=== PATIENT | female | born 1955 | race Caucasian/White ===

== ENCOUNTER 2016-07-08 18:11 | Emergency (ER) | payer OTHER ==
[~2016-07-08] VITALS: Ht 161.3 cm; Wt 39.1 kg
[~2016-07-08 18:11] MED LIST: CLIN300C10 PO; MISCCAP80 PO; OXGN; TIOTCAP INH
[2016-07-08 18:28] VITALS: TEMP 37.9; Ht 161.3 cm; Wt 39.1 kg
[2016-07-08] MEDS ORDERED: ALBUT/IPRATROP 3MG/0.5MG NEB 3 ML VIAL INH STA (18:41)
[2016-07-08] MEDS ORDERED: SODIUM CHLORIDE 0.9% 1000ML 1,000 ML IV STA (18:41)
[2016-07-08] MEDS ORDERED: CEFTRIAXONE SOD INJ 1 GM ADDVIAL IV STA (18:41)
[2016-07-08] MEDS ORDERED: LEVOFLOXACIN 500 MG TAB PO STA (18:41)
[2016-07-08] MEDS ORDERED: LEVOFLOXACIN 250 MG TAB ONE (19:05)
[2016-07-08 19:08] VITALS: O2SAT 95
--- NOTE | 2016-07-08 19:09 | DIAGNOSTIC IMAGING REPORT ---
SINGLE VIEW CHEST CLINICAL HISTORY: Cough. FINDINGS: An AP, portable, upright chest radiograph is compared to study dated 04/04/2014 and correlated with chest CT dated 02/20/2015. The examination is degraded by portable technique and patient rotation. There are postoperative changes from right pneumonectomy with compensatory hyperinflation of the left lung and rightward shift of the mediastinum. There is rightward deviation of the trachea. Advanced emphysema and chronic interstitial thickening are again noted. Patchy airspace consolidation is seen at the left lung base. There is no large left pleural effusion and no pneumothorax is identified. The cardiac silhouette is not well assessed. The skeletal structures are osteopenic. The bony thorax is grossly intact. IMPRESSION: 1. Advanced emphysema and postoperative changes from right pneumonectomy are similar to previous. 2. Patchy airspace consolidation is seen at the left lung base and likely represents pneumonia. Clinical correlation will be required and radiographic follow-up to resolution is recommended. Electronically signed by: Teodoro Carrion M.D. 07/08/2016 7:07 PM Dictated Date/Time: 07/08/2016 7:05 PM
[2016-07-08 19:10] LABS: BASO % 0.1 %; BASO ABS # 0.01 K/uL (0-0.2); COMPLETE YES; EOS % 0.1 %; HEMATOCRIT 34.5 % (37-47); IG% 0.2 %; LYMPH ABS # 0.26 K/uL (1.2-3.4); MEAN CELL VOLUME 106.8 fL (80-100); MEAN CORPUSCULAR HEMOGLOBIN 37.8 pg (25-34); MEAN CORPUSCULAR HGB CONC 35.4 g/dl (32-36); MEAN PLATELET VOLUME 9.8 fL (7.4-10.4); MONO % 4.4 %; NEUT % 93.2 %; PLATELET COUNT 127 K/uL (130-400); RED BLOOD COUNT 3.23 M/uL (4.2-5.4); WHITE BLOOD COUNT 12.81 K/uL (4.8-10.8)
[2016-07-08 19:23] LABS: INR 1.2 (0.9-1.1); PARTIAL THROMBOPLASTIN RATIO 1.4; PROTHROMBIN TIME (PATIENT) 13.1 SECONDS (9.0-12.0)
[2016-07-08 19:40] VITALS: BP 97/62; PULSE 109; O2SAT 98
[2016-07-08 19:40] LABS: ALT/SGPT 18 U/L (12-78); AST/SGOT 20 U/L (15-37); BLOOD UREA NITROGEN 11 mg/dl (7-18); BUN/CREATININE RATIO 20.5 (10-20); CARBON DIOXIDE 26 mmol/L (21-32); CHLORIDE 101 mmol/L (98-107); CREATININE 0.52 mg/dl (0.60-1.20); GLUCOSE 98 mg/dl (70-99); POTASSIUM 3.5 mmol/L (3.5-5.1); SODIUM 135 mmol/L (136-145)
[2016-07-08 19:44] LABS: ALB/GLOB RATIO 1.1 (0.9-2); ALKALINE PHOSPHATASE 83 U/L (45-117); CKMB/CK RATIO 2.1 (0-3.0)
[2016-07-08] MEDS ORDERED: LEVO-366 PO (20:01)
--- NOTE | 2016-07-08 20:02 | EMERGENCY ROOM VISIT NOTE ---
History Report prepared by Scribe: Laura Macias Under the Supervision of: Dr. Trenton Julien D.O. First contact with patient: 18:37 Chief Complaint: RESPIRATORY PROBLEMS Stated Complaint: SHORTNESS OF BREATH Nursing Triage Summary: pt arrives via EMS reports started 1 day ago with congested cough and increased sob ,and chest pressure. pt used neb tx at home last one at 1300 and ibuprofen at 1600 reports hx of Lung CA with R lung removed 6.5 yrears ago History of Present Illness The patient is a 61 year old female who presents to the Emergency Room with complaints of persistent respiratory problems that started yesterday. She was brought to the ED via EMS. She admits to a history of lung cancer and had a right pneumectomy 6 and-a-half years ago. She states she normally wears Oxygen at night. She tried using a nebulizer treatment at home around 1300 today and states it provided minimal relief. She also complains of some chest pressure and reports she took Ibuprofen at 1600 for her discomfort, which also provided minimal relief. The patient denies any other complaints at today's visit. Source of History: patient Onset: yesterday Position: chest Timing: other (persistent) Modifying Factors (Relieving): oxygen, other (Nebulizer) Associated Symptoms: + chest pain Review of Systems See HPI for pertinent positives & negatives. A total of 10 systems reviewed and were otherwise negative. Past Medical & Surgical Medical Problems: (1) Hernia (2) Lung cancer Surgical Problems: (1) H/O pneumonectomy Family History No pertinent family history Social History Smoking Status: Former Smoker Alcohol Use: occasionally Drug Use: none Marital Status: Housing Status: lives with family Occupation Status: retired Current/Historical Medications Scheduled Clindamycin Hcl (Clindamycin Hcl), 300 MG PO TID Levofloxacin (Levaquin), 500 MG PO DAILY Oxygen (Oxygen), 2 LITERS NA PRN Probiotic Product (Probiotic), 1 CAP PO TID Tiotropium [place] (Spiriva Handihaler), 1 CAP INH DAILY Allergies Coded Allergies: Aspirin (Verified Allergy, Unknown, ., 04/02/14) Sulfamethoxazole w/Trimethoprim (Verified Allergy, Unknown, UNKNOWN, ) Physical Exam Vital Signs Date Time Temp Pulse Resp B/P Pulse Ox O2 Delivery O2 Flow Rate FiO2 07/08/16 19:40 109 18 97/62 98 Nasal Cannula 2.0 07/08/16 19:08 95 Nasal Cannula 2.0 07/08/16 18:28 110 07/08/16 18:28 37.9 108 20 112/66 94 Nasal Cannula 2.0 Physical Exam CONSTITUTIONAL/VITAL SIGNS: Reviewed / noted above. GENERAL: Non-toxic in appearance. INTEGUMENTARY: Warm, dry, and Donna. HEAD: Normocephalic. EYES: without scleral icterus or trauma. ENT/OROPHARYNX: clear and moist. LYMPHADENOPATHY/NECK: Is supple without lymphadenopathy or meningismus. RESPIRATORY: Lungs sounds are diminished bilaterally. CARDIOVASCULAR: Regular rate and rhythm. GI/ABDOMEN: Soft and nontender. No organomegaly or pulsatile mass. No rebound or guarding. Normal bowel sounds. EXTREMITIES: Warm and well perfused. BACK: No CVA tenderness. NEUROLOGICAL: Intact without focal deficits. PSYCHIATRIC: normal affect. MUSCULOSKELETAL: Normally developed with good muscle tone. Medical Decision & Procedures ER Provider Diagnostic Interpretation: This X-Ray was reviewed and interpreted by myself and the radiologist. SINGLE VIEW CHEST IMPRESSION: 1. Advanced emphysema and postoperative changes from right pneumonectomy are similar to previous. 2. Patchy airspace consolidation is seen at the left lung base and likely represents pneumonia. Clinical correlation will be required and radiographic follow-up to resolution is recommended. Electronically signed by: Teodoro Carrion M.D. 07/08/2016 7:07 PM Laboratory Results 07/08/16 18:55 Red Blood Count 3.23, Mean Corpuscular Volume 106.8, Mean Corpuscular Hemoglobin 37.8, Mean Corpuscular Hemoglobin Concent 35.4, Mean Platelet Volume 9.8, Neutrophils (%) (Auto) 93.2, Lymphocytes (%) (Auto) 2.0, Monocytes (%) ( Auto) 4.4, Eosinophils (%) (Auto) 0.1, Basophils (%) (Auto) 0.1, Neutrophils # ( Auto) 11.95, Lymphocytes # (Auto) 0.26, Monocytes # (Auto) 0.56, Eosinophils # ( Auto) 0.01, Basophils # (Auto) 0.01 07/08/16 18:55 Test 07/08/16 18:55 White Blood Count 12.81 K/uL (4.8-10.8) Red Blood Count 3.23 M/uL (4.2-5.4) Hemoglobin 12.2 g/dL (12.0-16.0) Hematocrit 34.5 % (37-47) Mean Corpuscular Volume 106.8 fL (80-100) Mean Corpuscular Hemoglobin 37.8 pg (25-34) Mean Corpuscular Hemoglobin Concent 35.4 g/dl (32-36) Platelet Count 127 K/uL (130-400) Mean Platelet Volume 9.8 fL (7.4-10.4) Neutrophils (%) (Auto) 93.2 % Lymphocytes (%) (Auto) 2.0 % Monocytes (%) (Auto) 4.4 % Eosinophils (%) (Auto) 0.1 % Basophils (%) (Auto) 0.1 % Neutrophils # (Auto) 11.95 K/uL (1.4-6.5) Lymphocytes # (Auto) 0.26 K/uL (1.2-3.4) Monocytes # (Auto) 0.56 K/uL (0.11-0.59) Eosinophils # (Auto) 0.01 K/uL (0-0.5) Basophils # (Auto) 0.01 K/uL (0-0.2) RDW Standard Deviation 55.2 fL (36.4-46.3) RDW Coefficient of Variation 14.2 % (11.5-14.5) Immature Granulocyte % (Auto) 0.2 % Immature Granulocyte # (Auto) 0.02 K/uL (0.00-0.02) Prothrombin Time 13.1 SECONDS (9.0-12.0) Prothromb Time International Ratio 1.2 (0.9-1.1) Activated Partial Thromboplast Time 35.2 SECONDS (21.0-31.0) Partial Thromboplastin Ratio 1.4 Anion Gap 8.0 mmol/L (3-11) Est Creatinine Clear Calc Drug Dose 69.2 ml/min Estimated GFR () 118.7 Estimated GFR (Non- 102.4 BUN/Creatinine Ratio 20.5 (10-20) Calcium Level 8.0 mg/dl (8.5-10.1) Total Bilirubin 1.2 mg/dl (0.2-1) Aspartate Amino Transf (AST/SGOT) 20 U/L (15-37) Alanine Aminotransferase (ALT/SGPT) 18 U/L (12-78) Alkaline Phosphatase 83 U/L (45-117) Total Creatine Kinase 24 U/L (26-192) Creatine Kinase MB 0.5 ng/ml (0.5-3.6) Creatine Kinase MB Ratio 2.1 (0-3.0) Troponin I < 0.015 ng/ml (0-0.045) Total Protein 6.2 gm/dl (6.4-8.2) Albumin 3.2 gm/dl (3.4-5.0) Globulin 3.0 gm/dl (2.5-4.0) Albumin/Globulin Ratio 1.1 (0.9-2) Laboratory results as stated above per my review. Medications Administered Medications (Trade) Dose Ordered Sig/Kathia Route Start Time Stop Time Status Last Admin Dose Admin Albuterol/ Ipratropium (Duoneb) 3 ml NOW STAT INH 07/08/16 18:41 07/08/16 18:43 DC 07/08/16 19:04 3 ML Ceftriaxone Sodium 1 gm 1 gm NOW STAT IV 07/08/16 18:41 07/08/16 18:43 DC 07/08/16 19:04 1 GM Sodium Chloride (Nss 1000ml) 1,000 ml @ 999 mls/hr Q1H1M STAT IV 07/08/16 18:41 07/08/16 19:41 DC 07/08/16 18:41 999 MLS/HR Levofloxacin (Levaquin Tab) 500 mg STK-MED ONCE .ROUTE 07/08/16 19:05 07/08/16 19:06 DC 07/08/16 19:04 500 MG ECG Indication: SOB/dyspnea Rate (beats per minute): 109 Rhythm: sinus tachycardia Findings: no ectopy, other (T-wave flattening in inferior and lateral leads) Change: no significant change (Compared to EKG from April 05, 2014, changes appear to be new) ED Course 183: Previous medical records were reviewed. The patient was evaluated in room B11. A complete history and physical examination was performed. 184: NSS 1000 ml @ 999 mls/hr IV, Rocephin 1 gm IV, DuoNeb 3 ml INH. 1904: Levaquin 500 mg IV. 2004: I reevaluated the patient. She is feeling well and resting comfortably. I discussed her results and discharge instructions and she verbalized complete understanding and agreement. Medical Decision The differential was considered includes acute myocardial infarction, acute coronary syndrome, myocarditis, pericarditis, pericardial effusions /tamponad, esophageal perforation, pulmonary embolism, pneumonia, pneumothorax, cardiomyopathy, congestive heart, anemia , COPD/asthma exacerbation. This is a 61-year-old female who presents to the ED with a chief complaint of shortness of breath. She has had cold symptoms for the past 24 hours. She developed shortness of breath today. Her temperature is 37.9. Her physical exam reveals diminished breath sounds bilaterally. She does use oxygen at home at 2 L. She is not hypoxic. EKG shows sinus tach at 109. White blood cell count was 12.8. Complete metabolic panel was unremarkable. Troponin is negative. Chest x-ray suggests left lower lobe pneumonia. She was treated with IV Rocephin and by mouth Levaquin. She is felt to be stable for discharge. She'll be discharged on Levaquin. She will use caution as needed at home. She will return for worsening or new concerns. Impression Primary Impression: Pneumonia involving left lung Scribe Attestation The scribe's documentation has been prepared under my direction and personally reviewed by me in its entirety. I confirm that the note above accurately reflects all work, treatment, procedures, and medical decision making performed by me. Departure Information Dispostion Home / Self-Care Prescriptions Levofloxacin (Levaquin) 500 Mg Tab 500 MG PO DAILY for 9 Days, #9 TAB Prov: Trenton Julien D.O. 07/08/16 Referrals Yoel Neil M.D. (PCP) Patient Instructions ED Pneumonia, My [facility] Additional Instructions Levaquin as prescribed for pneumonia. Follow-up with your doctor for further care and evaluation in 1-2 days. Return to the emergency department for worsening or new symptoms or any concerns. You have been examined and treated today on an emergency basis only. This is not a substitute for, or an effort to provide, complete comprehensive medical care. It is impossible to recognize and treat all injuries or illnesses in a single emergency department visit. It is therefore important that you follow up closely with your doctor. Call as soon as possible for an appointment.
== END 2016-07-08 20:24 | disposition home or self-care (01) ==
LOC: EDBD 18:11 → C.EDB 18:12
DX: J18.9 Pneumonia, unspecified organism (principal); R00.0 Tachycardia, unspecified; Z85.118 Personal history of other malignant neoplasm of bronchus and lung; Z90.2 Acquired absence of lung [part of]; Z87.891 Personal history of nicotine dependence

== ENCOUNTER → 2016-07-12 | Outpatient (CLI) | payer OTHER ==
[~2016-07-12] MED LIST changes: +LEVO-366 PO
--- NOTE | 2016-07-12 10:56 | DIAGNOSTIC IMAGING REPORT ---
KUB HISTORY: ABDOMINAL DISCOMFORT, EPIGASTRIC COMPARISON: Abdomen and pelvis CT 07/13/2009. FINDINGS: Multiple nondilated air-filled loops of large and small bowel seen throughout the abdomen. No distended loops of bowel to suggest an obstruction. Prior right-sided pneumonectomy and left basilar interstitial thickening is again noted. No renal calculi. No ureteral calculi. No pneumoperitoneum or pneumatosis. IMPRESSION: No evidence for bowel obstruction. Electronically signed by: Miguel Zhang M.D. 07/12/2016 10:55 AM Dictated Date/Time: 07/12/2016 10:54 AM
== END | disposition home or self-care (01) ==
LOC: C.RADPV 10:23
PROVIDERS: ATTEND Family Medicine
DX: R10.13 Epigastric pain (principal)

== ENCOUNTER → 2016-12-02 | Outpatient (CLI) | payer OTHER ==
[~2016-12-02] MED LIST changes: -LEVO-366 PO
== END | disposition home or self-care (01) ==
LOC: C.LAB1850 13:45
PROVIDERS: ATTEND Internal Medicine Cardiovascular Disease
DX: R07.9 Chest pain, unspecified (principal)

== ENCOUNTER → 2016-12-09 | Outpatient (CLI) | payer OTHER ==
[2016-12-09 13:09] LABS: ALT/SGPT 18 U/L (12-78); BLOOD UREA NITROGEN 6 mg/dl (7-18); BUN/CREATININE RATIO 9.4 (10-20); CALCIUM 9.4 mg/dl (8.5-10.1); CARBON DIOXIDE 26 mmol/L (21-32); CHLORIDE 100 mmol/L (98-107); CHOLESTEROL 213 mg/dl (0-200); CREATININE 0.66 mg/dl (0.60-1.20); GLUCOSE 95 mg/dl (70-99); POTASSIUM 4.3 mmol/L (3.5-5.1); SODIUM 136 mmol/L (136-145)
[2016-12-09 13:12] LABS: ALB/GLOB RATIO 1.1 (0.9-2); ALKALINE PHOSPHATASE 110 U/L (45-117); AST/SGOT 41 U/L (15-37); CHOLESTEROL/HDL RATIO 1.8; HDL CHOLESTEROL 117 mg/dl; LDL CHOLESTEROL CALCULATED 83 mg/dl; TRIGLYCERIDES 64 mg/dl (0-150); VERY LOW DENSITY LIPOPROT CALC 13 mg/dl
== END | disposition home or self-care (01) ==
LOC: C.LABPVFM 09:06
PROVIDERS: ATTEND Family Medicine
DX: Z00.00 Encounter for general adult medical examination without abnormal findings (principal); C34.90 Malignant neoplasm of unspecified part of unspecified bronchus or lung

== ENCOUNTER 2017-05-30 11:01 | Emergency (ER) | payer OTHER ==
[~2017-05-30] VITALS: Ht 160 cm; Wt 37.6 kg
[2017-05-30 11:01] VITALS: O2SAT 100
[2017-05-30] MEDS ORDERED: SODIUM CHLORIDE 0.9% 1000ML 1,000 ML IV STA (11:32)
[2017-05-30 11:34] VITALS: Ht 160 cm; Wt 37.6 kg
[2017-05-30 11:39] LABS: BASO % 0.2 %; BASO ABS # 0.02 K/uL (0-0.2); HEMATOCRIT 39.8 % (37-47); IG# 0.04 K/uL (0.00-0.02); LYMPH % 1.9 %; LYMPH ABS # 0.25 K/uL (1.2-3.4); MEAN CELL VOLUME 107.3 fL (80-100); MEAN CORPUSCULAR HEMOGLOBIN 37.7 pg (25-34); MEAN CORPUSCULAR HGB CONC 35.2 g/dl (32-36); MEAN PLATELET VOLUME 9.5 fL (7.4-10.4); MONO % 6.6 %; MONO ABS # 0.85 K/uL (0.11-0.59); NEUT ABS # 11.76 K/uL (1.4-6.5); PLATELET COUNT 144 K/uL (130-400); RED CELL DISTRIBUTION WIDTH CV 14.2 % (11.5-14.5); RED CELL DISTRIBUTION WIDTH SD 55.7 fL (36.4-46.3); WHITE BLOOD COUNT 12.92 K/uL (4.8-10.8)
[2017-05-30] MEDS ORDERED: SPRIN/30 INH (11:48)
[2017-05-30] MEDS ORDERED: OXGN (11:48)
[2017-05-30 11:49] LABS: ALBUMIN 3.8 gm/dl (3.4-5.0); ALT/SGPT 34 U/L (12-78); AST/SGOT 140 U/L (15-37); BLOOD UREA NITROGEN 11 mg/dl (7-18); CALCIUM 8.5 mg/dl (8.5-10.1); CARBON DIOXIDE 22 mmol/L (21-32); CREATININE 0.58 mg/dl (0.60-1.20); GLUCOSE 199 mg/dl (70-99); INR 1.1 (0.9-1.1); LIPASE 58 U/L (73-393); POTASSIUM 3.9 mmol/L (3.5-5.1); PTT PATIENT 28.9 SECONDS (21.0-31.0); SODIUM 134 mmol/L (136-145); TOTAL PROTEIN 7.3 gm/dl (6.4-8.2)
[2017-05-30 11:58] LABS: ALKALINE PHOSPHATASE 117 U/L (45-117)
--- NOTE | 2017-05-30 11:59 | DIAGNOSTIC IMAGING REPORT ---
CT OF THE HEAD WITHOUT CONTRAST CLINICAL HISTORY: Weakness. COMPARISON STUDY: MRI of the brain January 02, 2009. CT DOSE: 614.27 mGy.cm TECHNIQUE: Helical axial images of the head were obtained without IV contrast. Automated exposure control was utilized for the study. A dose lowering technique was utilized adhering to the principles of ALARA. FINDINGS: No acute intracranial hemorrhage, midline shift or mass effect is present. Ventricular system is stable. Basilar cisterns are patent. There are no extra axial collections. Roque-white differentiation is maintained. There are no findings to suggest acute dural sinus thrombosis or acute territorial infarct. There are no significant calvarial abnormalities. There is mild mucosal thickening of the ethmoid sinuses. Mastoid air cells are clear. IMPRESSION: No acute intracranial findings. Electronically signed by: Rao Carrizales M.D. 05/30/2017 11:57 AM Dictated Date/Time: 05/30/2017 11:55 AM
--- NOTE | 2017-05-30 12:38 | DIAGNOSTIC IMAGING REPORT ---
CHEST ONE VIEW PORTABLE CLINICAL HISTORY: Weakness. COMPARISON STUDY: Chest CT February 20, 2015 and chest radiograph July 08, 2016. FINDINGS: The appearance of the right pneumonectomy cavity is unchanged. There is no pneumothorax or pleural effusion. Left lung is clear. There is no evidence for pulmonary edema. Old right-sided rib deformities are noted. IMPRESSION: 1. No acute cardiopulmonary findings. 2. Status post right pneumonectomy. Electronically signed by: Rao Carrizales M.D. 05/30/2017 12:36 PM Dictated Date/Time: 05/30/2017 12:34 PM
[2017-05-30] MEDS ORDERED: ACETAMINOPHEN 325 MG TAB PO STA (13:26)
[2017-05-30] MEDS ORDERED: FSTTS (14:19)
[2017-05-30] MEDS ORDERED: [UNRECOGNIZED DRUG - CODE] SC (14:19)
--- NOTE | 2017-05-30 14:20 | EMERGENCY ROOM VISIT NOTE ---
History Report prepared by Bala: Al Mccray Under the Supervision of: Dr. Celso Barnett M.D. First contact with patient: 11:10 Stated Complaint: DIABETIC History of Present Illness The patient is a 61 year old white female with a past medical history of COPD, pneumonectomy s/p lung cancer who presents to the ED by EMS with a cc of constant generalized weakness beginning shortly prior to arrival. Patient was weak as soon as she woke up this morning. EMS found the patient to be hypoglycemic this morning (patient unaware of the exact value). No recent falls. Positive headache. Not eating and drinking a lot (but this is normal for her). Urinating and defecating normally. No recent travel. Family was sick two weeks ago. No unexplained weight loss. Nursing staff notes that the patient's blood sugar was read as "low" with no specific value. They state that the patient was given Glucagon and D10 en route, and her repeat glucose was over 200. Source of History: patient Onset: Shortly prior to arrival Position: other (generalized) Quality: other (weakness) Timing: constant Associated Symptoms: + headache Review of Systems See HPI for pertinent positives and negatives. A total of ten systems were reviewed and were otherwise negative. Past Medical & Surgical Medical Problems: (1) Hernia (2) Lung cancer Surgical Problems: (1) H/O pneumonectomy Family History No pertinent family history Social History Smoking Status: Former Smoker Alcohol Use: occasionally Drug Use: none Marital Status: Housing Status: lives with family Occupation Status: retired Current/Historical Medications Scheduled Home O2 Therapy (Oxygen), 2 LITERS NA HS Tiotropium [place] (Spiriva Handihaler), 1 CAP INH DAILY Allergies Coded Allergies: Aspirin (Verified Allergy, Unknown, ., 05/30/17) Sulfamethoxazole w/Trimethoprim (Verified Allergy, Unknown, UNKNOWN, ) Physical Exam Vital Signs Date Time Temp Pulse Resp B/P (MAP) Pulse Ox O2 Delivery O2 Flow Rate FiO2 05/30/17 13:35 90 18 112/63 99 Room Air 05/30/17 13:33 89 05/30/17 11:39 87 15 123/77 99 Room Air 05/30/17 11:07 90 05/30/17 11:01 92 15 131/78 100 Room Air 05/30/17 11:01 100 Room Air Physical Exam GENERAL: Awake, alert, well-appearing, NAD. Very thin. HENT: Normocephalic, atraumatic. EYES: Normal conjunctiva. Sclera non-icteric. NECK: Supple. No nuchal rigidity. FROM. RESPIRATORY: Decreased breath sounds on the right, trace breath sounds on the left. CARDIAC: RRR, no MRG ABDOMEN: Soft, NTND, BS+ MSK: No chest wall TTP, no LE edema NEURO: GCS 15, CN 2-12 intact, moves all 4s on command SKIN: No rash or jaundice noted. Medical Decision & Procedures ER Provider Diagnostic Interpretation: Radiology results as stated below per my review and radiologist interpretation: CT OF THE HEAD WITHOUT CONTRAST FINDINGS: No acute intracranial hemorrhage, midline shift or mass effect is present. Ventricular system is stable. Basilar cisterns are patent. There are no extra axial collections. Roque-white differentiation is maintained. There are no findings to suggest acute dural sinus thrombosis or acute territorial infarct. There are no significant calvarial abnormalities. There is mild mucosal thickening of the ethmoid sinuses. Mastoid air cells are clear. IMPRESSION: No acute intracranial findings. Electronically signed by: Rao Carrizales M.D. 05/30/2017 11:57 AM CHEST ONE VIEW PORTABLE FINDINGS: The appearance of the right pneumonectomy cavity is unchanged. There is no pneumothorax or pleural effusion. Left lung is clear. There is no evidence for pulmonary edema. Old right-sided rib deformities are noted. IMPRESSION: 1. No acute cardiopulmonary findings. 2. Status post right pneumonectomy. Electronically signed by: Rao Carrizales M.D. 05/30/2017 12:36 PM Laboratory Results 05/30/17 11:15 Red Blood Count 3.71, Mean Corpuscular Volume 107.3, Mean Corpuscular Hemoglobin 37.7, Mean Corpuscular Hemoglobin Concent 35.2, Mean Platelet Volume 9.5, Neutrophils (%) (Auto) 91.0, Lymphocytes (%) (Auto) 1.9, Monocytes (%) ( Auto) 6.6, Eosinophils (%) (Auto) 0.0, Basophils (%) (Auto) 0.2, Neutrophils # ( Auto) 11.76, Lymphocytes # (Auto) 0.25, Monocytes # (Auto) 0.85, Eosinophils # ( Auto) 0.00, Basophils # (Auto) 0.02 05/30/17 11:15 Test 05/30/17 11:15 White Blood Count 12.92 K/uL (4.8-10.8) Red Blood Count 3.71 M/uL (4.2-5.4) Hemoglobin 14.0 g/dL (12.0-16.0) Hematocrit 39.8 % (37-47) Mean Corpuscular Volume 107.3 fL (80-100) Mean Corpuscular Hemoglobin 37.7 pg (25-34) Mean Corpuscular Hemoglobin Concent 35.2 g/dl (32-36) Platelet Count 144 K/uL (130-400) Mean Platelet Volume 9.5 fL (7.4-10.4) Neutrophils (%) (Auto) 91.0 % Lymphocytes (%) (Auto) 1.9 % Monocytes (%) (Auto) 6.6 % Eosinophils (%) (Auto) 0.0 % Basophils (%) (Auto) 0.2 % Neutrophils # (Auto) 11.76 K/uL (1.4-6.5) Lymphocytes # (Auto) 0.25 K/uL (1.2-3.4) Monocytes # (Auto) 0.85 K/uL (0.11-0.59) Eosinophils # (Auto) 0.00 K/uL (0-0.5) Basophils # (Auto) 0.02 K/uL (0-0.2) RDW Standard Deviation 55.7 fL (36.4-46.3) RDW Coefficient of Variation 14.2 % (11.5-14.5) Immature Granulocyte % (Auto) 0.3 % Immature Granulocyte # (Auto) 0.04 K/uL (0.00-0.02) Prothrombin Time 11.6 SECONDS (9.0-12.0) Prothromb Time International Ratio 1.1 (0.9-1.1) Activated Partial Thromboplast Time 28.9 SECONDS (21.0-31.0) Partial Thromboplastin Ratio 1.1 Anion Gap 14.0 mmol/L (3-11) Est Creatinine Clear Calc Drug Dose 59.7 ml/min Estimated GFR () 114.5 Estimated GFR (Non- 98.8 BUN/Creatinine Ratio 18.5 (10-20) Calcium Level 8.5 mg/dl (8.5-10.1) Magnesium Level 1.3 mg/dl (1.8-2.4) Total Bilirubin 1.0 mg/dl (0.2-1) Direct Bilirubin 0.4 mg/dl (0-0.2) Aspartate Amino Transf (AST/SGOT) 140 U/L (15-37) Alanine Aminotransferase (ALT/SGPT) 34 U/L (12-78) Alkaline Phosphatase 117 U/L (45-117) Troponin I < 0.015 ng/ml (0-0.045) Pro-B-Type Natriuretic Peptide 199 pg/ml (0-900) Total Protein 7.3 gm/dl (6.4-8.2) Albumin 3.8 gm/dl (3.4-5.0) Lipase 58 U/L (73-393) Thyroid Stimulating Hormone (TSH) 1.250 uIu/ml (0.300-4.500) Laboratory results reviewed by me Medications Administered Medications (Trade) Dose Ordered Sig/Kathia Route Start Time Stop Time Status Last Admin Dose Admin Sodium Chloride 1,000 ml @ 999 mls/hr Q1H1M STAT IV 05/30/17 11:32 05/30/17 12:32 DC 05/30/17 11:39 999 MLS/HR Acetaminophen (Tylenol Tab) 650 mg NOW STAT PO 05/30/17 13:26 05/30/17 13:27 DC 05/30/17 13:44 650 MG ECG Per My Interpretation Indication: weakness Rate (beats per minute): 87 Rhythm: normal sinus Findings: other (Normal intervals. Normal axis. ) ED Course 1125: The patient was evaluated in room C1B. A complete history and physical exam was performed. 1352: I reevaluated the patient. Discussed results and discharge instructions: she verbalized understanding and agreement. The patient is ready for discharge. Medical Decision The patient is a 61 year old white female with a past medical history of COPD, pneumonectomy s/p lung cancer who presents to the ED by EMS with a cc of constant generalized weakness beginning shortly prior to arrival. Differential diagnosis: Etiologies such as metabolic, infection, hypo/hyperglycemia, electrolyte abnormalities, cardiac sources, intracerebral event, toxicologic, neurologic, as well as others were entertained. Prior records were reviewed. Patient was seen and evaluated the bedside. Patient does have a prior history of COPD is on chronic oxygen 2 L nasal cannula at home primarily in the evening time. Patient is status post pneumonectomy from her prior lung cancer. Patient does get seen on a yearly basis and had a recent negative scan. Patient presents as she was having some confused speech and apparently the EMS crew noted that she had low blood sugar. Patient denies taking any medications. Patient denies any alcohol or tobacco use. Patient denies any drug use. Patient only uses ipratropium inhalers. Patient denies any unexplained weight loss. Patient denies any history of abdominal metastases or cancers. Patient medically does have a poor appetite. Patient is at work completed along with CT of the brain EKG. Patient's EKG unremarkable. CT brain negative acute. Patient's white blood cell count 12, 000. Patient does show some macrocytosis but is without anemia. Patient does have mild elevation in the bili. Upon review of the blood work patient has had elevations in T bili in the past. Patient does have mild elevation in AST. Patient again denies any prior history of abdominal cancer or prior history of metastases. Patient has had mild elevations in AST once before for prior blood work that I reviewed. 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 Patient is to be seen on June 05 with a primary care physician. Patient was also given a glucometer. Patient was told that she does need to increase her alimentation as the patient has a BMI of 14 and looks very thin. Patient was told to increase her caloric intake. Patient was given strict follow-up, discharge, and return precautions. All questions were answered. Patient was deemed suitable for outpatient follow-up at this time. Patient agreed with the plan of care and was safely discharged home. Medication Reconcilliation Current Medication List: was personally reviewed by me Blood Pressure Screening Patient's blood pressure: Normal blood pressure Blood pressure disposition: Did not require urgent referral Impression Primary Impression: Hypoglycemia Additional Impressions: Altered mental status Hypomagnesemia Scribe Attestation The scribe's documentation has been prepared under my direction and personally reviewed by me in its entirety. I confirm that the note above accurately reflects all work, treatment, procedures, and medical decision making performed by me. Departure Information Dispostion Home / Self-Care Prescriptions Glucostix Blood Test Strips (Onetouch Ultra Control) 1 [facility] UNITS for glucose checks, #30 Prov: Celso Barnett M.D. 05/30/17 Blood Glucose Monitoring Suppl (D-Care Glucometer Kit/Glu W/Device) 1 Kit Kit KIT NM, #1 Prov: Celso Barnett M.D. 05/30/17 Referrals Yoel Neil M.D. (PCP) Patient Instructions Glucose Blood, Glucose Check Steps, My [facility] Additional Instructions Please return to the emergency department if you have worsening or recurrent symptoms not amenable to at-home treatment. Please call for a follow-up appointment with her primary care physician. Please take your medications as prescribed. If you have other concerns and/or complaints please feel free to also call your primary care physician's office or return the ED for further evaluation, management, and treatment. Take your medications as prescribed. You have been examined and treated today on an emergency basis only. This is not a substitute for, or an effort to provide, complete comprehensive medical care. It is impossible to recognize and treat all injuries or illnesses in a single emergency department visit. It is therefore important that you follow up closely with [facility], your PCP, and/or your specialist(s). Call as soon as possible for an appointment. Thank you for your time and consideration. I look forward to speaking with you again soon. Please don't hesitate to call us if you have any questions. Problem Qualifiers Additional Impressions: Altered mental status Altered mental status type: unspecified Qualified Codes: R41.82 - Altered mental status, unspecified
[2017-05-30 14:41] VITALS: BP 113/68; PULSE 99; O2SAT 97
== END 2017-05-30 14:41 | disposition home or self-care (01) ==
LOC: EDBD 11:01 → C.EDC 11:02
DX: E16.2 Hypoglycemia, unspecified (principal); R41.82 Altered mental status, unspecified; J44.9 Chronic obstructive pulmonary disease, unspecified; Z99.81 Dependence on supplemental oxygen; Z90.2 Acquired absence of lung [part of]; Z85.118 Personal history of other malignant neoplasm of bronchus and lung; Z87.891 Personal history of nicotine dependence; Z88.2 Allergy status to sulfonamides; Z88.6 Allergy status to analgesic agent

== ENCOUNTER → 2017-06-17 | Outpatient (CLI) | payer OTHER ==
[~2017-06-17] MED LIST changes: -CLIN300C10 PO; +FSTTS; -MISCCAP80 PO; +OPTIRAY 320 IV PRN; +SPRIN/30 INH; -TIOTCAP INH; +[UNRECOGNIZED DRUG - CODE] SC
--- NOTE | 2017-06-17 13:31 | DIAGNOSTIC IMAGING REPORT ---
ABD/PELVIS IV CONTRAST ONLY CLINICAL HISTORY: 61 years-old Female presenting with C34.90 Squamous cell carcinoma of lungR64 [id number] Early s. TECHNIQUE: Multidetector CT of the abdomen and pelvis was performed after the administration of intravenous contrast. IV contrast: 93 mL of Optiray 320. A dose lowering technique was used consistent with the principles of ALARA (as low as reasonably achievable). COMPARISON: None. CT DOSE (mGy.cm): The estimated cumulative dose is 240.86 mGy.cm. FINDINGS: Hospice Entrance Attendant topogram: Opacification of the right hemithorax. Lung bases: Postsurgical changes of right pneumonectomy suspected. Extensive pleural thickening, pleural calcification, loculated pleural fluid at the right lung base. Emphysematous changes of the left lung, which is hyperinflated. Normal heart size. No pericardial or pleural effusion. Liver: Hypertrophy of the left hepatic lobe with a macronodular contour suggesting fibrotic changes/cirrhosis. No focal lesion. Patent hepatic vasculature. Biliary: No intrahepatic or extrahepatic biliary ductal dilatation. Normal gallbladder. Pancreas: Normal. Spleen: Parenchymal calcification may relate to the presence of an intrasplenic aneurysm. Parenchyma otherwise normal. Adrenal glands: Normal. Kidneys and ureters: Nonobstructing punctate left renal calculus. Normal renal parenchyma allowing for the phase of contrast. No hydronephrosis. Distal ureters poorly visualized. Bladder: Circumferential bladder wall thickening. Pelvic organs: Grossly normal uterus and ovaries. Bowel: Mucosal hyperenhancement of the rectum suggested. Mucosal hyperenhancement and mild wall thickening evident in the distal transverse colon and splenic flexure. The presumed appendix demonstrates mucosal hyperenhancement though is not dilated. Mild submucosal edema in the stomach. No bowel obstruction. Fecal material noted in the distal small bowel suggesting delayed transit. Peritoneal cavity: No free fluid or intraperitoneal gas. Lymph nodes: No enlarged lymph nodes in the abdomen or pelvis. Vasculature: Atherosclerosis of the normal caliber abdominal aorta. IVC patent. Abdominal wall: Normal. Musculoskeletal: Normal. IMPRESSION: 1. Postsurgical changes of the right hemithorax. 2. No convincing evidence of intra-abdominal metastatic disease. No lymphadenopathy. 3. Mucosal hyperenhancement mild wall thickening of the transverse colon and rectum. This could suggest colitis, which may be infectious. 4. Circumferential bladder wall thickening suggest cystitis. This may be infectious or post radiation depending on the patient's clinical history. Correlate with urinalysis. 5. Altered morphology of the liver could suggest cirrhosis. Electronically signed by: Yoel Jonas M.D. 06/17/2017 1:30 PM Dictated Date/Time: 06/17/2017 1:18 PM
== END | disposition home or self-care (01) ==
LOC: C.CTS 12:13
PROVIDERS: ATTEND Family Medicine
DX: R64 Cachexia (principal); R68.81 Early satiety; C34.90 Malignant neoplasm of unspecified part of unspecified bronchus or lung

== ENCOUNTER → 2017-06-24 | Outpatient (CLI) | payer OTHER ==
--- NOTE | 2017-06-24 15:13 | DIAGNOSTIC IMAGING REPORT ---
ABD/PELVIS IV AND ORAL CONT CLINICAL HISTORY: 61 years-old Female presenting with R63.4 Abnormal weight lossR93.[address] scan, gastrointestinal, history of squamous cell carcinoma the lung. TECHNIQUE: Multidetector CT of the abdomen and pelvis was performed after the administration of oral and intravenous contrast. IV contrast: 64 mL of Optiray 320. A dose lowering technique was used consistent with the principles of ALARA (as low as reasonably achievable). COMPARISON: 06/17/2017. CT DOSE (mGy.cm): The estimated cumulative dose is 515.66 mGy.cm. FINDINGS: Bar Back topogram: Opacification of the right hemithorax. Lung bases: Postsurgical changes of right pneumonectomy. Chronic right pleural thickening, pleural calcification, and loculated complex effusion. Hyperinflation of the left lung which demonstrates emphysematous change and focal irregular peripheral bandlike opacity in the lingula likely scarring (series 5 image 12).. Normal heart size. Coronary artery calcification. No pericardial or left pleural effusion. Liver: Nodular contour of the liver. No focal lesion. Patent hepatic vasculature. Biliary: No intrahepatic or extrahepatic biliary ductal dilatation. Normal gallbladder. Pancreas: Mild prominence of the pancreatic duct. Pancreatic parenchyma within normal limits. Spleen: Basilar calcification noted in the spleen. Parenchyma normal. Adrenal glands: Adrenal glands poorly visualized. Kidneys and ureters: Normal. No hydronephrosis. Bladder: Mild circumferential bladder wall thickening. Pelvic organs: Uterus and ovaries normal. Bowel: Resolution of previously noted mucosal hyperenhancement of the rectum and sigmoid colon. The appendix is normal. No bowel obstruction. Peritoneal cavity: No free fluid or intraperitoneal gas. Lymph nodes: No enlarged lymph nodes in the abdomen or pelvis. Vasculature: Atherosclerosis of the normal caliber abdominal aorta. IVC patent. The aorta at the aortic hiatus measures 3 cm in diameter, mildly ectatic. Abdominal wall: Patient is cachectic. Musculoskeletal: Osteopenia. Deformities of several right ribs from prior surgery. IMPRESSION: 1. Interval resolution of inflammatory changes of the colon. 2. No evidence of intra-abdominal metastatic disease or lymphadenopathy. 3. Postsurgical changes of the right hemithorax. 4. Mild persistent circumferential bladder wall thickening. Correlate with urinalysis to exclude cystitis. Electronically signed by: Yoel Jonas M.D. 06/24/2017 3:12 PM Dictated Date/Time: 06/24/2017 3:04 PM
== END | disposition home or self-care (01) ==
LOC: C.CTS 12:49
PROVIDERS: ATTEND Physician Assistant
DX: R63.4 Abnormal weight loss (principal); R93.3 Abnormal findings on diagnostic imaging of other parts of digestive tract

== ENCOUNTER → 2017-07-16 | Outpatient (CLI) | payer OTHER ==
[~2017-07-16] MED LIST changes: -OPTIRAY 320 IV PRN
--- NOTE | 2017-07-16 13:36 | DIAGNOSTIC IMAGING REPORT ---
Nuclear gastric emptying study: CLINICAL HISTORY: Epigastric pain. Dysphagia. COMPARISON STUDY: CT of the abdomen and pelvis June 24, 2017. TECHNIQUE: Following the oral administration of 1.08 mCi of technetium 99m sulfur colloid in egg sandwich and 8 ounces of water, static abdominal images were obtained anteriorly and posteriorly at 0 minutes, 1 hour, 2 hour, and 4 hour time intervals. Gastric emptying was calculated utilizing the geometric mean method. FINDINGS: There is approximately 36% gastric activity remaining at the 1 hour time interval (normal is less than 90%), 24% at the 2 hour time interval (normal is less than 60%), and 2% remaining at the 4 hour time interval (normal is less than 10%). IMPRESSION: No evidence of delayed gastric emptying. Electronically signed by: Rao Carrizales M.D. 07/16/2017 1:35 PM Dictated Date/Time: 07/16/2017 1:34 PM
== END | disposition home or self-care (01) ==
LOC: C.NUCL 08:53
PROVIDERS: ATTEND Physician Assistant
DX: R13.10 Dysphagia, unspecified (principal); R10.13 Epigastric pain; R93.3 Abnormal findings on diagnostic imaging of other parts of digestive tract

== ENCOUNTER → 2017-10-29 | Day surgery (SDC) | payer OTHER ==
[2017-10-28 10:18] VITALS: Ht 161.3 cm; Wt 33.6 kg
[~2017-10-29] VITALS: Ht 161.3 cm; Wt 33.6 kg
[~2017-10-29] MED LIST changes: -FSTTS; +LIDOCAINE HCL 2% 2 ML VIAL (20MG/ML) ONE; +MIDAZOLAM HCL 1 MG/ML 2ML VIAL ONE; +ONDANSETRON INJ 2 MG/ML 2 ML VIAL ONE; +PHENYLEPHRINE 100MCG/ML 5ML SYR ONE; +PROPOFOL IV EMULSION 10 MG/ML 20 ML VIAL ONE; +SODIUM CHLORIDE 0.9% 500ML 500 ML IV ONE; -[UNRECOGNIZED DRUG - CODE] SC
--- NOTE | 2017-10-29 11:01 | Endo History and Physical ---
History & Physical Date of Service: Oct 29, 2017. Chief Complaint: blood in stool Referring Physician: Dr. Temitope Shaikh History of Present Illness 62 yo CF who presents for colonoscopy secondary to positive cologuard test. Past Medical History Diabetes, Eating Disorders, Osteoporosis, Arthritis, Cancer, COPD Past Surgical History Hx Cardiac Surgery: No Hx Internal Defibrillator: No Hx Pacemaker: No Hx Abdominal Surgery: Yes (HERNIA REPAIR X 2, ) Hx Post-Op Nausea and Vomiting: No Hx Cancer Surgery: Yes (RIGHT LUNG REMOVED) Hx Thoracic Surgery: Yes (BRONCHOSCOPY) Hx Orthopedic: No Hx Urinary Tract Surgery: No Family History None Social History Smoking Status: Current Every Day Smoker Hx Substance Use: No Hx Alcohol Use: Yes (OCCASIONALLY) Allergies Coded Allergies: Sulfamethoxazole w/Trimethoprim (Verified Allergy, Severe, TONGUE SWELLING , 10/28/17) Aspirin (Verified Allergy, Unknown, SEVERE STOMACH CRAMPING, 10/28/17) Current Medications Reported Home Medications Medications Dose Route/Sig Max Daily Dose Days Date Category Dose Instructions Spiriva Handihaler (Tiotropium [place]) 30 Puff/540 Mcg Aerp 1 Cap INH QAM 05/30/17 Reported Oxygen Gas 2 Liters NA HS 05/30/17 Reported WILL USE DURING PRN SOB Vital Signs Weight (Kilograms): 33.64 Height (Feet): 5 Height (Inches): 3.5 Date Time Temp Pulse Resp B/P (MAP) Pulse Ox O2 Delivery O2 Flow Rate FiO2 10/29/17 10:36 36.4 97 18 110/78 (89) 99 Room Air Physical Exam General Appearance: WD/WN, no apparent distress Respiratory/Chest: Auscultation: breath sounds normal Cardiovascular: Heart Auscultation: RRR Abdomen: Bowel Sounds: normal Inspection & Palpation: soft, non-distended, no tenderness, guarding & rebound Assessment and Plan Assessment: 62 yo CF who presents for colonoscopy secondary to positive cologuard test. Plan: Proceed with colonoscopy.
--- NOTE | 2017-10-29 12:00 | Discharge Instructions ---
Endoscopy Patient Instructions Date / Procedure(s) Performed Oct 29, 2017. Colonoscopy Allergy Information Coded Allergies: Sulfamethoxazole w/Trimethoprim (Verified Allergy, Severe, TONGUE SWELLING , 10/28/17) Aspirin (Verified Allergy, Unknown, SEVERE STOMACH CRAMPING, 10/28/17) Discharge Date / Findings Oct 29, 2017. Colon polyp Diverticulosis Internal hemorrhoids Medication Instructions OK to resume all medications today as prescribed Reported Home Medications Medications Dose Route/Sig Max Daily Dose Days Date Category Dose Instructions Spiriva Handihaler (Tiotropium [place]) 30 Puff/540 Mcg Aerp 1 Cap INH QAM 05/30/17 Reported Oxygen Gas 2 Liters NA HS 05/30/17 Reported WILL USE DURING PRN SOB Provider Instructions Activity Restrictions - No exercising or heavy lifting for 24 hours. - Do not drink alcohol the day of the procedure. - Do not drive a car or operate machinery until the day after the procedure. - Do not make any important decisions or sign important papers in 24 hours after the procedure. Following Day: - Return to full activity which may include returning to work/school. Diet Start your diet with liquids and light foods (jello, soup, juice, toast). Then eat your usual diet if not nauseated. Treatment For Common After Affects For mild abdominal pain, bloating, or excessive gas: - Rest - Eat lightly - Lie on right side Follow-Up Information Follow-up with Dr. Temitope Shaikh as scheduled Anesthesia Information What You Should Know You have had a procedure that required some medicine to reduce anxiety and discomfort. This treatment is called moderate sedation. After receiving the treatment, you may be sleepy, but you will be able to breathe on your own. The effects of the treatment may last for several hours. Follow these instructions along with Activity/Diet recommendations noted above: * Do NOT do anything where dizziness or clumsiness would be dangerous. * Rest quietly at home today, then you can be up and about tomorrow. * Have a responsible person stay with you the rest of today. * You may have had an I.V. today. If so, you may take the dressing off later today. Recommendations Call your doctor if: * Trouble breathing * Continuous vomiting for more than 24 hours * Temperature above 101 degrees * Severe abdominal pain or bloating * Pain not relieved by pain medicine ordered * There is increased drainage or redness from any incision * A large amount of rectal bleeding greater than 2-3 tablespoons. (If you had a polyp/s removed or have hemorrhoids, a small amount of blood - from the rectum is to be expected.) * You have any unanswered questions or concerns. IN THE EVENT OF A SERIOUS EMERGENCY, GO TO THE NEAREST EMERGENCY ROOM Your discharge instructions were prepared by provider Norris Hogan. Patient Instructions Signature Page Amy Posadas Patient (or Guardian) Signature/Date: I have read and understand the instructions given to me by my caregivers. Caregiver/RN/Doctor Signature/Date: The above-named patient and/or guardian has received patient instructions on this date. + Original Patient Signature Page (only) stays with chart. Please make copy for patient.
--- NOTE | 2017-10-29 12:25 | GI REPORT ---
Patient Name: Amy Posadas Procedure Date: 10/29/2017 11:22 AM Date of : 1955 Admit Type: Outpatient Age: 62 Gender: Female Attending MD: Norris Hogan DO Procedure: Colonoscopy Providers: Norris Hogan DO Referring MD: Victor Hugo De La Rosa M.d. Indications: Positive Cologuard test Medicines: Monitored Anesthesia Care Complications: No immediate complications. Estimated Blood Loss: Estimated blood loss: none. Procedure: Pre-Anesthesia Assessment: - Prior to the procedure, a History and Physical was performed, and patient medications and allergies were reviewed. The patient's tolerance of previous anesthesia was also reviewed. The risks and benefits of the procedure and the sedation options and risks were discussed with the patient. All questions were answered, and informed consent was obtained. Prior Anticoagulants: The patient has taken no previous anticoagulant or antiplatelet agents. ASA Grade Assessment: III - A patient with severe systemic disease. After reviewing the risks and benefits, the patient was deemed in satisfactory condition to undergo the procedure. After I obtained informed consent, the scope was passed under direct vision. Throughout the procedure, the patient's blood pressure, pulse, and oxygen saturations were monitored continuously. The scope was introduced through the anus and advanced to the terminal ileum. The colonoscopy was technically difficult and complex due to a tortuous colon and the patient's body habitus. The patient tolerated the procedure well. The quality of the bowel preparation was good. The terminal ileum, ileocecal valve, appendiceal orifice, and rectum were photographed. Findings: The perianal and digital rectal examinations were normal. A 6 mm polyp was found in the transverse colon. The polyp was sessile. The polyp was removed with a hot snare. Resection and retrieval were complete. Multiple small-mouthed diverticula were found in the sigmoid colon. Non-bleeding internal hemorrhoids were found during retroflexion. The hemorrhoids were small. Impression: - One 6 mm polyp in the transverse colon, removed with a hot snare. Resected and retrieved. - Diverticulosis in the sigmoid colon. - Non-bleeding internal hemorrhoids. Recommendation: - Resume previous diet. - Continue present medications. - Repeat colonoscopy for surveillance based on pathology results. - Return to primary care physician as previously scheduled. Norris Hogan DO 10/29/2017 12:24:54 PM This report has been signed electronically. Note Initiated On: 10/29/2017 11:22 AM Number of Addenda: 0 I attest to the content of the Intraoperative Record and orders documented therein, exceptions below {[id number]}
[2017-10-29 12:28] VITALS: BP 131/81; PULSE 86; O2SAT 97
--- NOTE | 2017-10-29 12:38 | Anesthesiology Progress Note ---
Anesthesia Post Op Note Date & Time Oct 29, 2017 at 12:38 Vital Signs Pain Intensity: 0 Vital Signs Past 12 Hours Date Time Temp Pulse Resp B/P (MAP) Pulse Ox O2 Delivery O2 Flow Rate FiO2 10/29/17 12:28 86 20 131/81 (98) 97 Room Air 10/29/17 12:13 84 20 123/76 (92) 96 Room Air 10/29/17 12:00 84 20 110/65 (80) 99 Room Air 10/29/17 10:36 36.4 97 18 110/78 (89) 99 Room Air Notes Mental Status: alert / awake / arousable, participated in evaluation Pt Amnestic to Procedure: Yes Nausea / Vomiting: adequately controlled Pain: adequately controlled Airway Patency, RR, SpO2: stable & adequate BP & HR: stable & adequate Hydration State: stable & adequate Anesthetic Complications: no major complications apparent
== END | disposition home or self-care (01) ==
LOC: C.GI 09:35
PROVIDERS: ATTEND Internal Medicine
DX: K92.1 Melena (principal); R19.5 Other fecal abnormalities; D12.3 Benign neoplasm of transverse colon; K57.30 Diverticulosis of large intestine without perforation or abscess without bleeding; K64.8 Other hemorrhoids; Z88.2 Allergy status to sulfonamides; Z79.82 Long term (current) use of aspirin; E11.9 Type 2 diabetes mellitus without complications; J44.9 Chronic obstructive pulmonary disease, unspecified; F17.200 Nicotine dependence, unspecified, uncomplicated

== ENCOUNTER 2019-02-22 19:10 | Inpatient (IN) ==
--- NOTE | 2019-02-22 20:10 | XRay Report ---
XR chest 2V PA/lateral CLINICAL HISTORY: Sternal pain. Choking. Thymic maneuver. COMPARISON STUDY: 05/30/2017 FINDINGS: Postpneumonectomy changes are present on the right. There is evidence for emphysema. There are subtle left basilar opacities. There is no lobar consolidation. A rounded opacity within the left midlung zone is felt to represent a nipple shadow. There are no significant pleural effusions. No pn eumothorax is visualized.[ IMPRESSION: 1. Stable post pneumonectomy changes in the right 2. Emphysema with subtle left basilar opacities. This could indicate a mild left basilar pneumonitis. Clinical and radiographic follow-up is recommended. Electronically signed by: Aristides Gaines M.D. 02/22/2019 8:09 PM
[2019-02-22] MEDS: SODIUM CHLORIDE 0.9% 500 ML IV SCH (20:16)
[2019-02-22 20:35] LABS: Base Excess VBG 5.6 mEq/L; HCO3 VBG 31 mmol/L; PCO2 VBG 49 mmHg (38-50); PO2 VBG 31 mmHg; pH VBG 7.42 (7.36-7.41)
[2019-02-22 20:36] LABS: Oxygen Saturation VBG < 60.0 %
[2019-02-22 20:38] LABS: Appearance Urine Clear (Clear); Bacteria Urine Automated Negative (Negative); Bilirubin Urine Negative (Negative); Blood Urine Negative (Negative); Color Urine Yellow; Epithelial Cell Urine Auto >30 /lpf (0-5); Glucose Urine UA Negative (Negative); Ketones Urine Negative (Negative); Leukocyte Esterase Urine Trace (Negative); Nitrite Urine Negative (Negative); Protein Urine Negative (Negative); RBC Urine Automated 0-4 /hpf (0-4); Specific Gravity Urine 1.019 (1.000-1.030); Urobilinogen Urine Negative (Negative); pH Urine 6.5 (4.5-7.5)
[2019-02-22 20:39] LABS: Alanine Aminotransferase 9 U/L (12-78); Aspartate Aminotransferase 14 U/L (15-37); Blood Urea Nitrogen 8 mg/dl (7-18); Calcium 8.6 mg/dl (8.5-10.1); Carbon Dioxide 33 mmol/L (21-32); Chloride 91 mmol/L (98-107); Creatinine Clr Calc Pharmacy 76.3 ml/min; Est GFR (African American) 127.6; Est GFR (Non-African American) 110.1; Glucose 87 mg/dl (70-99); Lipase 69 U/L (73-393); Magnesium 1.4 mg/dl (1.8-2.4); Potassium 3.7 mmol/L (3.5-5.1); Sodium 129 mmol/L (136-145)
[2019-02-22 20:44] LABS: Albumin Globulin Ratio 0.8 (0.9-2); Alkaline Phosphatase 107 U/L (45-117); Bilirubin,Total 0.4 mg/dl (0.2-1); Globulin 3.8 gm/dl (2.5-4.0); NT Pro B Type Natriuretic Pept 419 pg/ml (0-900); Total Protein 6.8 gm/dl (6.4-8.2); Troponin I < 0.015 ng/ml (0-0.045)
[2019-02-22 21:04] LABS: Basophils # (auto) 0.01 K/uL (0-0.2); Basophils % (auto) 0.1 %; Eosinophils # (auto) 0.05 K/uL (0-0.5); Eosinophils % (auto) 0.6 %; Hematocrit (blood only) 33.3 % (37-47); Hemoglobin 11.6 g/dL (12.0-16.0); Immature Granulocytes # (auto) 0.02 K/uL (0.00-0.02); Immature Granulocytes % (auto) 0.3 %; Lymphocytes # (auto) 0.43 K/uL (1.2-3.4); Lymphocytes % (auto) 5.5 %; Mean Corpuscular Hemoglobin 35.9 pg (25-34); Mean Corpuscular Hgb Conc 34.8 g/dL (32-36); Mean Corpuscular Volume 103.1 fL (80-100); Mean Platelet Volume 9.8 fL (7.4-10.4); Monocytes # (auto) 0.58 K/uL (0.11-0.59); Monocytes % (auto) 7.5 %; Neutrophils # (auto) 6.67 K/uL (1.4-6.5); Platelet Count 159 K/uL (130-400); RDW Coefficient of Variation 15.6 % (11.5-14.5); RDW Standard Deviation 59.1 fL (36.4-46.3); Red Blood Count 3.23 M/uL (4.2-5.4); White Blood Count 7.76 K/uL (4.8-10.8)
[2019-02-22 21:05] LABS: Influenza A virus by PCR Neg for Influ A (Neg); Influenza B virus by PCR Neg for Influ B (Neg)
[2019-02-22] MEDS: MAGNESIUM SULFATE / D5W 1 GM/100 ML BAG IV SCH ×2 (21:31→23:33)
[2019-02-22] MEDS ORDERED: ALBUT/IPRATROP 3MG/0.5MG NEB 3 ML VIAL INH PRN (22:19)
--- NOTE | 2019-02-22 23:07 | History & Physical Report ---
Date of Service February 22, 2019 Assessment & Plan (1) Choking episode: Patient is a 63yo F PMH COPD, Lung cancer s/p R pneumonectomy, current smoker, alcoholic, admitted after having heimlich maneuver performed on her, general malnutrition, electrolyte disturbance, possible NH placement. Choking episode -Heimlich performed by successfully -Pt with pleuritic CP at site of heimlich -Lidoderm patch applied to site -No evidence of rib fracture -NPO until speech eval in AM Alcoholism -Unclear exact amount of drinking, but son notes this is all day; thinks < a fifth of vodka -Pt not intoxicated on assessment -AWSS ativan protocolin place prn -Folate, thiamine, Vit B complex supplements initiated; would recommend this continue (perhaps in form of chewable) as outpatient to tolerate on daily basis COPD/Lung Ca s/p R pneumonectomy -Cont home inhalers, oxygen -Does not appear to be in exacerbation currently -Smokes at least 1ppd currently -Nicotine patch offered Hyponatremia -Likely related to alcohol, chronic malnutrition -IVF replacement; monitor labs, further studies prn Hypomagnesemia -Repleted in ER -Cont to monitor Protein-calorie malnutrition, generalized decline -Chronic in setting of lung ca, smoking, alcohol, poor PO intake -Nutrition/dietary consult placed; resume boost products -Family would like to place in shelter -I do feel that pt has capacity to make decisions on care. Pt at least open to rehab. Further discussion may shed light on severity of her nutritional status. -CM consult placed. Son Teodoro would very much appreciate family meeting to be set up to discuss outpatient options (home vs. snf vs. rehab). Contact Teodoro at [phone]. Code: Full after extensive discussion with family and patient DVTP: Heparin BID Dispo: Med tele admission due to possible alcohol withdrawal, electrolyte abnormalities Teodoro (Son): [phone] (2) Squamous cell carcinoma of lung: (3) Chronic obstructive pulmonary disease: (4) Alcoholism: (5) Hyponatremia: (6) Protein calorie malnutrition: History of Present Illness Chief Complaint: choking episode Primary Care Provider: Temitope Shaikh MD Patient is a 63yo F PMH COPD, Lung cancer s/p R pneumonectomy, current smoker, alcoholic, who presents after choking on a pill earlier this evening. History provided in part by patient and by son who spoke with me outside the room. Her performed the heimlich maneuver successfully, and she complained of some acute pleuritic chest pain since then. Family is concerned about her well-being at home. Patient does admit that she continues to smoke 1ppd and does not eat much, noting a significant amount of weight loss in the past 2 months. She states this is in part related to her pneumonectomy procedure causing esophageal discomfort, but son also reports that she sits all day smoking cigarettes and drinking cranberry vodkas which also contributes to her not eating. Patient states she tried using boost supplements before but got tired of the taste and "they didn't help." Patient does wear oxygen daily and smokes with the oxygen on. She admits that she thinks a rehab facility might be appropriate, but family believe due to her malnutrition and cachexia and overall poor prognosis, home is not the best place for her and would prefer her to be placed in a shelter. Son states that this has been something they have tried to discuss with her for the past few years, but she has been very resistant to. Son reports their father was recently in a MVA with a broken sternum, and he doesn't think he is well enough to be performing the heimlich on her as needed. Allergies Allergy/AdvReac Type Severity Reaction Status Date / Time Bactrim Allergy Severe TONGUE Verified 10/29/17 10:17 SWELLING sulfamethoxazole Allergy Severe TONGUE Verified 02/22/19 21:47 SWELLING trimethoprim Allergy Severe TONGUE Verified 02/22/19 21:47 SWELLING aspirin Allergy Unknown SEVERE Verified 02/22/19 21:47 STOMACH CRAMPING Penicillins Allergy Unknown Unknown Verified 02/22/19 21:47 Home Medications Home Medications Medication Instructions Recorded Confirmed Type Oxygen Home #1 ea 09/26/18 09/26/18 History albuterol sulfate 90 mcg/actuation 2 puffs INH .COMPLEX PRN 09/26/18 02/22/19 History aerosol inhaler blood sugar diagnostic #10 ea 09/26/18 09/26/18 History dextrose 1 gram chewable tablet 1 gm PO .COMPLEX PRN 09/26/18 02/22/19 History ipratropium-albuterol 0.5 mg-3 See Rx Instructions INHALATION 09/26/18 02/22/19 History mg(2.5 mg base)/3 mL nebulization .COMPLEX PRN ml soln tiotropium bromide 18 mcg capsule 1 cap INHALATION DAILY #30 puffs 12/16/18 02/22/19 Rx with inhalation device Past Med/Surg History Medical History Abnormal CT scan, gastrointestinal tract (Acute) Bilateral kidney stones (Acute) Cachexia (Acute) Chronic obstructive pulmonary disease (Acute) Chronic reflux esophagitis (Acute) Dilation of thoracic aorta (Acute) Osteoporosis (Acute) Squamous cell carcinoma of lung (Acute) Unspecified cirrhosis of liver (Acute) Surgical History No pertinent past surgical history Family History Other No pertinent family history in first degree relatives Social History Preferred Language: Romanian Communication Ability: Effective Acoustical Carpenter Required: No Beliefs That Will Affect Care: None marital status: Life Partner Current Living Situation: Significant Other current occupational status: disabled Feels Safe at Home: Yes Safety Concerns: Feels Safe At This Time Smoking Status: Current every day smoker Tobacco Type: cigarettes ; Cigarettes Per Day: 20 ; Hx Alcohol Use: Yes Alcohol type: hard liquor Hx Substance Use: No Review of Systems Review of Systems: All systems reviewed & are unremarkable except as noted in HPI & below Constitutional: + malaise, + weakness, + anorexia and + weight loss Respiratory: + cough (chronic), + dyspnea, + pain on inspiration and + pain with cough Cardiovascular: + chest pain (at site of heimlich); no lightheadedness, no edema and no calf pain Gastrointestinal: + early satiety; no abdominal pain Genitourinary: no dysuria, no urinary frequency and no urinary hesitancy Neurologic: no falls, no lack of coordination, no headache(s) and no confusion Physical Exam Constitutional: + ill appearing (chronically), + thin and + cachectic; + not appropriately hydrated Appears older than stated age Eyes: PERRL, conjunctivae normal, anicteric sclerae ENMT: Mouth: + oral mucosal abnormality (dry MM) Neck: normal visual inspection Respiratory: normal respiratory effort Auscultation: + diminished lung sounds (s/p R lung pneumonectomy) and + rhonchi Cardiovascular: RRR, no murmur, no edema Gastrointestinal (Abdomen): normal bowel sounds, soft, nontender, no hepatosplenomegaly Musculoskeletal: Extremities: + abnormal strength; + abnormal strength (4/5 throughout) Skin: no rashes, warm and dry Neurologic: PERRL, EOMI, accommodation nl, no face palsy, no dysarthria Psychiatric: A+Ox3, euthymic affect Results & Data Vital Signs (Past 12 Hours) Vital Signs Temp Pulse Resp BP Pulse Ox 02/22/19 23:01 82 23 100 02/22/19 23:00 81 20 124/67 100 02/22/19 22:45 84 21 100 02/22/19 22:31 83 22 100 02/22/19 22:30 83 21 125/67 100 02/22/19 22:15 88 21 99 02/22/19 22:01 87 25 H 99 02/22/19 22:00 90 23 126/68 100 02/22/19 21:45 87 20 100 02/22/19 21:31 86 25 H 100 02/22/19 21:30 85 23 126/72 100 02/22/19 21:00 91 H 23 124/71 100 02/22/19 20:31 92 H 27 H 100 02/22/19 20:30 91 H 27 H 125/72 100 02/22/19 20:15 92 H 27 H 99 02/22/19 20:10 95 H 22 121/67 95 02/22/19 20:09 98 H 19 97 02/22/19 19:45 92 H 28 H 98 02/22/19 19:31 97 H 26 H 100 02/22/19 19:30 93 H 19 116/72 100 02/22/19 19:21 100 H 17 99 02/22/19 19:20 98.6 F 101 H 22 136/74 96 02/22/19 19:18 98 H 32 H 134/73 100 Laboratory Results 02/22/19 02/22/19 02/22/19 Range/Units 20:14 20:14 20:00 WBC 7.76 (4.8-10.8) K/uL RBC 3.23 L (4.2-5.4) M/uL Hgb 11.6 L (12.0-16.0) g/dL Hct 33.3 L (37-47) % MCV 103.1 H (80-100) fL MCH 35.9 H (25-34) pg MCHC 34.8 (32-36) g/dL RDW Std Deviation 59.1 H (36.4-46.3) fL RDW Coeff of Niru 15.6 H (11.5-14.5) % Plt Count 159 (130-400) K/uL MPV 9.8 (7.4-10.4) fL Immature Gran % (Auto) 0.3 % Neut % (Auto) 86.0 % Lymph % (Auto) 5.5 % [place] % (Auto) 7.5 % Eos % (Auto) 0.6 % Baso % (Auto) 0.1 % Immature Gran # (Auto) 0.02 (0.00-0.02) K/uL Neut # (Auto) 6.67 H (1.4-6.5) K/uL Lymph # (Auto) 0.43 L (1.2-3.4) K/uL [place] # (Auto) 0.58 (0.11-0.59) K/uL Eos # (Auto) 0.05 (0-0.5) K/uL Baso # (Auto) 0.01 (0-0.2) K/uL VBG pH (7.36-7.41) VBG pCO2 (38-50) mmHg VBG pO2 mmHg VBG HCO3 mmol/L VBG O2 Saturation % VBG Base Excess mEq/L Barometric Pressure mm/Hg Sodium (136-145) mmol/L Potassium (3.5-5.1) mmol/L Chloride (98-107) mmol/L Carbon Dioxide (21-32) mmol/L Anion Gap (3-11) BUN (7-18) mg/dl Creatinine (0.6-1.2) mg/dl Est Cr Clr Drug Dosing ml/min Est GFR ( Amer) Est GFR (Non-Af Amer) BUN/Creatinine Ratio (10-20) Glucose (70-99) mg/dl Lactate (0.4-2.0) mmol/L Calcium (8.5-10.1) mg/dl Magnesium (1.8-2.4) mg/dl Total Bilirubin (0.2-1) mg/dl AST (15-37) U/L ALT (12-78) U/L Alkaline Phosphatase (45-117) U/L Troponin I (0-0.045) ng/ml NT-Pro-B Natriuret Pep (0-900) pg/ml Total Protein (6.4-8.2) gm/dl Albumin (3.4-5.0) gm/dl Globulin (2.5-4.0) gm/dl Albumin/Globulin Ratio (0.9-2) Lipase (73-393) U/L Urine Color Yellow Urine Appearance Clear (Clear) Urine pH 6.5 (4.5-7.5) Ur Specific [place] 1.019 (1.000-1.030) Urine Protein Negative (Negative) Urine Glucose (UA) Negative (Negative) Urine Ketones Negative (Negative) Urine Blood Negative (Negative) Urine Nitrite Negative (Negative) Urine Bilirubin Negative (Negative) Urine Urobilinogen Negative (Negative) Ur Leukocyte Esterase Trace H (Negative) Urine WBC (Auto) 1-5 (0-5) /hpf Urine RBC (Auto) 0-4 (0-4) /hpf U Hyaline Cast (Auto) 1-5 (0-5) /lpf U Epithel Cells (Auto) >30 H (0-5) /lpf Urine Bacteria (Auto) Negative (Negative) Influenza Type A (PCR) Neg for Influ A (Neg) Influenza Type B (PCR) Neg for Influ B (Neg) 02/22/19 02/22/19 02/22/19 Range/Units 20:00 20:00 20:00 WBC (4.8-10.8) K/uL RBC (4.2-5.4) M/uL Hgb (12.0-16.0) g/dL Hct (37-47) % MCV (80-100) fL MCH (25-34) pg MCHC (32-36) g/dL RDW Std Deviation (36.4-46.3) fL RDW Coeff of Niru (11.5-14.5) % Plt Count (130-400) K/uL MPV (7.4-10.4) fL Immature Gran % (Auto) % Neut % (Auto) % Lymph % (Auto) % [place] % (Auto) % Eos % (Auto) % Baso % (Auto) % Immature Gran # (Auto) (0.00-0.02) K/uL Neut # (Auto) (1.4-6.5) K/uL Lymph # (Auto) (1.2-3.4) K/uL [place] # (Auto) (0.11-0.59) K/uL Eos # (Auto) (0-0.5) K/uL Baso # (Auto) (0-0.2) K/uL VBG pH 7.42 H (7.36-7.41) VBG pCO2 49 (38-50) mmHg VBG pO2 31 mmHg VBG HCO3 31 mmol/L VBG O2 Saturation < 60.0 % VBG Base Excess 5.6 mEq/L Barometric Pressure 725.6 mm/Hg Sodium 129 L (136-145) mmol/L Potassium 3.7 (3.5-5.1) mmol/L Chloride 91 L (98-107) mmol/L Carbon Dioxide 33 H (21-32) mmol/L Anion Gap 5.0 (3-11) BUN 8 (7-18) mg/dl Creatinine 0.40 L (0.6-1.2) mg/dl Est Cr Clr Drug Dosing 76.3 ml/min Est GFR ( Amer) 127.6 Est GFR (Non-Af Amer) 110.1 BUN/Creatinine Ratio 19.0 (10-20) Glucose 87 (70-99) mg/dl Lactate 1.7 (0.4-2.0) mmol/L Calcium 8.6 (8.5-10.1) mg/dl Magnesium 1.4 L (1.8-2.4) mg/dl Total Bilirubin 0.4 (0.2-1) mg/dl AST 14 L (15-37) U/L ALT 9 L (12-78) U/L Alkaline Phosphatase 107 (45-117) U/L Troponin I < 0.015 (0-0.045) ng/ml NT-Pro-B Natriuret Pep 419 (0-900) pg/ml Total Protein 6.8 (6.4-8.2) gm/dl Albumin 3.0 L (3.4-5.0) gm/dl Globulin 3.8 (2.5-4.0) gm/dl Albumin/Globulin Ratio 0.8 L (0.9-2) Lipase 69 L (73-393) U/L Urine Color Urine Appearance (Clear) Urine pH (4.5-7.5) Ur Specific [place] (1.000-1.030) Urine Protein (Negative) Urine Glucose (UA) (Negative) Urine Ketones (Negative) Urine Blood (Negative) Urine Nitrite (Negative) Urine Bilirubin (Negative) Urine Urobilinogen (Negative) Ur Leukocyte Esterase (Negative) Urine WBC (Auto) (0-5) /hpf Urine RBC (Auto) (0-4) /hpf U Hyaline Cast (Auto) (0-5) /lpf U Epithel Cells (Auto) (0-5) /lpf Urine Bacteria (Auto) (Negative) Influenza Type A (PCR) (Neg) Influenza Type B (PCR) (Neg) Diagnostic Findings XR chest 2V PA/lateral CLINICAL HISTORY: Sternal pain. Choking. Thymic maneuver. COMPARISON STUDY: 05/30/2017 FINDINGS: Postpneumonectomy changes are present on the right. There is evidence for emphysema. There are subtle left basilar opacities. There is no lobar consolidation. A rounded opacity within the left midlung zone is felt to represent a nipple shadow. There are no significant pleural effusions. No pneumothorax is visualized.[ IMPRESSION: 1. Stable post pneumonectomy changes in the right 2. Emphysema with subtle left basilar opacities. This could indicate a mild left basilar pneumonitis. Clinical and radiographic follow-up is recommended. Code Status & VTE Plan Code Status Full code VTE Prophylaxis Plan VTE Prophylaxis will be ordered: Yes Supervising Physician Co-Signing Physician Notes Attending addendum: I have physically seen this patient, have supervised the medical residents activities, and agree with the H&P unless as otherwise noted. Assessment and Plan: Choking status post successful Heimlich maneuver by - Persistent pleuritic chest pain. Lidoderm patch. N.p.o. until assessed by speech therapy in a.m. Alcoholism- AWSS protocol Oral folate, thiamine and vitamin B complex COPD/lung cancer/status post right pneumonectomy- Duonebs every 4 hours while awake and every 2 hours when necessary.. Tobacco cessation counseling. Remainder of orders and notations as noted. Resident Activity Tracking Resident Involvement: Resident Care Provided Care Provided: [facility]
[2019-02-22] MEDS ORDERED: POLYETHYLENE (MIRALAX) 17 GM PACK PO PRN (23:51)
[2019-02-22] MEDS ORDERED: ACETAMINOPHEN 325 MG TAB PO PRN (23:51)
[2019-02-22] MEDS ORDERED: LORazepam 1 MG/2 ML VIAL IV PRN ×2 (23:51)
[2019-02-22] MEDS ORDERED: LORazepam 1 MG TAB PO PRN (23:51)
[2019-02-22] MEDS ORDERED: LORazepam 2 MG/4 ML VIAL IV PRN (23:51)
[2019-02-22] MEDS ORDERED: ALUMINUM/MAGNESIUM SUSP 30 ML UDC PO PRN (23:51)
[2019-02-22] MEDS ORDERED: LORazepam 3 MG/6 ML VIAL IV PRN (23:51)
[2019-02-22] MEDS ORDERED: ONDANSETRON INJ 2 MG/ML 2 ML VIAL IV PRN (23:51)
[2019-02-22] MEDS ORDERED: ATIVAN IV ALCOHOL WITHDRAWL IV PRN (23:51)
[2019-02-22] MEDS ORDERED: MAGNESIUM HYDROXIDE SUSP 30 ML UDC PO PRN (23:51)
--- NOTE | 2019-02-23 00:05 | Emergency Department Note ---
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 She states she took an amoxicillin tablet earlier when she choked on the pill. She reports her performed the Heimlich and she expelled the tablet. Currently, the patient states she has left sided chest pain. 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 She normally wears 1.5 to 2 L of oxygen Home Medications Home Medications Medication Instructions Recorded Confirmed Type Oxygen Home #1 ea 09/26/18 09/26/18 History albuterol sulfate 90 mcg/actuation 2 puffs INH .COMPLEX PRN 09/26/18 02/22/19 History aerosol inhaler blood sugar diagnostic #10 ea 09/26/18 09/26/18 History dextrose 1 gram chewable tablet 1 gm PO .COMPLEX PRN 09/26/18 02/22/19 History ipratropium-albuterol 0.5 mg-3 See Rx Instructions INHALATION 09/26/18 02/22/19 History mg(2.5 mg base)/3 mL nebulization .COMPLEX PRN ml soln tiotropium bromide 18 mcg capsule 1 cap INHALATION DAILY #30 puffs 12/16/18 02/22/19 Rx with inhalation device Allergies Allergy/AdvReac Type Severity Reaction Status Date / Time Bactrim Allergy Severe TONGUE Verified 10/29/17 10:17 SWELLING sulfamethoxazole Allergy Severe TONGUE Verified 02/22/19 21:47 SWELLING trimethoprim Allergy Severe TONGUE Verified 02/22/19 21:47 SWELLING aspirin Allergy Unknown SEVERE Verified 02/22/19 21:47 STOMACH CRAMPING Penicillins Allergy Unknown Unknown Verified 02/22/19 21:47 Past Med/Surg History Medical History Abnormal CT scan, gastrointestinal tract (Acute) Bilateral kidney stones (Acute) Cachexia (Acute) Chronic obstructive pulmonary disease (Acute) Chronic reflux esophagitis (Acute) Dilation of thoracic aorta (Acute) Osteoporosis (Acute) Squamous cell carcinoma of lung (Acute) Unspecified cirrhosis of liver (Acute) Surgical History No pertinent past surgical history Family History Other No pertinent family history in first degree relatives Social History Preferred Language: Iraqi Communication Ability: Effective Marketing Coordinator Required: No Beliefs That Will Affect Care: None marital status: Single Current Living Situation: Significant Other current occupational status: disabled Feels Safe at Home: Yes Safety Concerns: Feels Safe At This Time Smoking Status: Current every day smoker Tobacco Type: cigarettes ; Cigarettes Per Day: 20 ; Hx Alcohol Use: Yes Alcohol type: hard liquor Hx Substance Use: No Review of Systems See HPI for pertinent positives & negatives. and A total of 10 systems reviewed and were otherwise negative Physical Exam Vital Signs Vital Signs - 24 hr 02/22/19 19:18 02/22/19 19:20 02/22/19 19:21 Temperature 37.0 C Temperature Source Oral Pulse Rate 98 H 101 H 100 H Pulse Rate from SpO2 Sensor 97 H 99 H Respiratory Rate 32 H 22 17 Respiratory Effort / Characteristics Non-Labored Respiratory Depth Normal Blood Pressure 134/73 136/74 Blood Pressure Mean 92 94 Pulse Oximetry 100 96 99 Oxygen Delivery Method Nasal Cannula Oxygen Flow Rate 4 Sepsis Action Taken by Nursing No Action Required 02/22/19 19:30 02/22/19 19:31 02/22/19 19:45 Temperature Temperature Source Pulse Rate 93 H 97 H 92 H Pulse Rate from SpO2 Sensor 94 H 96 H 92 H Respiratory Rate 19 26 H 28 H Respiratory Effort / Characteristics Respiratory Depth Blood Pressure 116/72 Blood Pressure Mean 82 Pulse Oximetry 100 100 98 Oxygen Delivery Method Oxygen Flow Rate Sepsis Action Taken by Nursing 02/22/19 20:09 02/22/19 20:10 02/22/19 20:15 Temperature Temperature Source Pulse Rate 98 H 95 H 92 H Pulse Rate from SpO2 Sensor 98 H 96 H 93 H Respiratory Rate 19 22 27 H Respiratory Effort / Characteristics Respiratory Depth Blood Pressure 121/67 Blood Pressure Mean 70 Pulse Oximetry 97 95 99 Oxygen Delivery Method Nasal Cannula Oxygen Flow Rate 3 Sepsis Action Taken by Nursing 02/22/19 20:30 02/22/19 20:31 02/22/19 21:00 Temperature Temperature Source Pulse Rate 91 H 92 H 91 H Pulse Rate from SpO2 Sensor 92 H 92 H 92 H Respiratory Rate 27 H 27 H 23 Respiratory Effort / Characteristics Respiratory Depth Blood Pressure 125/72 124/71 Blood Pressure Mean 80 83 Pulse Oximetry 100 100 100 Oxygen Delivery Method Oxygen Flow Rate Sepsis Action Taken by Nursing 02/22/19 21:30 02/22/19 21:31 02/22/19 21:45 Temperature Temperature Source Pulse Rate 85 86 87 Pulse Rate from SpO2 Sensor 85 91 H 87 Respiratory Rate 23 25 H 20 Respiratory Effort / Characteristics Respiratory Depth Blood Pressure 126/72 Blood Pressure Mean 83 Pulse Oximetry 100 100 100 Oxygen Delivery Method Oxygen Flow Rate Sepsis Action Taken by Nursing 02/22/19 22:00 02/22/19 22:01 02/22/19 22:15 Temperature Temperature Source Pulse Rate 90 87 88 Pulse Rate from SpO2 Sensor 90 87 88 Respiratory Rate 23 25 H 21 Respiratory Effort / Characteristics Respiratory Depth Blood Pressure 126/68 Blood Pressure Mean 79 Pulse Oximetry 100 99 99 Oxygen Delivery Method Oxygen Flow Rate Sepsis Action Taken by Nursing 02/22/19 22:30 Temperature Temperature Source Pulse Rate 83 Pulse Rate from SpO2 Sensor 83 Respiratory Rate 21 Respiratory Effort / Characteristics Respiratory Depth Blood Pressure 125/67 Blood Pressure Mean 83 Pulse Oximetry 100 Oxygen Delivery Method Oxygen Flow Rate Sepsis Action Taken by Nursing GENERAL: She is oriented to person, place, and time. She appears well-developed and well-nourished. She does not appear distressed. Cachectic HENT: Exam performed. Head: Normocephalic and atraumatic. Right Ear: External ear normal. No mastoid tenderness. Left Ear: External ear normal. No mastoid tenderness. Mouth/Throat: The oropharynx is clear and moist. No trismus in the jaw. No dental abscesses or uvula swelling. No oropharyngeal exudate or tonsillar abscesses. EYES: Conjunctivae and EOM are normal. Pupils are equal, round, and reactive to light. Right eye exhibits no discharge. Left eye exhibits no discharge. No scleral icterus. NECK: Normal range of motion. Neck supple. No JVD present. No spinous process tenderness present. No carotid bruit present. No rigidity. No tracheal deviation and normal range of motion present. No Brudzinski's sign and no Kernig's sign noted. CV: Normal rate, regular rhythm, normal heart sounds and intact distal pulses. There is no peripheral edema. Palpable radial pulses bue. PULM/CHEST: No breath sounds over the right side. Chronic due to her right lung removal. No respiratory distress. No stridor. She has no wheezes. She has no rales. Chest Wall: Pain on palpation of the sternum, reproducing the chief complaint. No crepitus ABD: The abdomen is soft. Bowel sounds are normal. She has no distension. No mass is present. There is no tenderness. There is no rebound, no guarding, no Horan's sign and no tenderness at McBurney's point. Rovsig negative MUSC/SKEL: Normal range of motion. There is no peripheral edema, tenderness or deformity. LYMPH: No cervical adenopathy. NEURO: She is alert and oriented to person, place, and time. She has normal strength. No cranial nerve deficit or sensory deficit. Coordination and gait normal. GCS eye subscore is 4. GCS verbal subscore is 5. GCS motor subscore is 6. cerbellar tests wnl. SKIN: Skin is warm and dry. She is not diaphoretic. PSYCH: She has a normal mood and affect. Her behavior is normal. Judgment and thought content normal. Course Course 1929: Past medical records reviewed. The patient was evaluated in room B8. A complete history and physical exam was performed. 1947: The family members contacted me outside the room stating they are very concerned about their mother. They state the patient is unable to take care of herself. They notes she cannot walk much due to her extreme SOB. Her family states she has not been eating or drinking properly and she has lost weight. They reports her symptoms have been present for the past 2 months and have gotten progressively worse. They would like the patient to be placed in a shelter facility but state the patient has been reluctant and not cooperative. They are inquiring about possible rehab and home health care o ptions. 2139: Vital signs stable. Imaging shows no acute injury. Labs show sodium of 129 and Mg f 1.4. Patient will be admitted for magnesium replacement as well as possible shelter placement. Discussed the patient's case with Dr. Giordano, [facility] Hospitalist The patient will be evaluated for further management. Administered Medications Sodium Chloride (Nss) 500 mls @ 125 mls/hr IV .Q4H TRACE Stop: 03/24/19 19:59 Last Admin: 02/22/19 20:16 Dose: 125 mls/hr Documented by: [id number] Discontinued Medications Magnesium Sulfate/Dextrose (Magnesium Sulfate / D5w) 1 gm in 100 mls @ 100 mls/ hr IV Q1H TRACE Stop: 02/22/19 23:29 Last Admin: 02/22/19 23:33 Dose: 100 mls/hr Documented by: [id number] Infusion: 02/22/19 23:32 Dose: 0 mls/hr Documented by: [id number] Admin: 02/22/19 21:31 Dose: 100 mls/hr Documented by: [id number] Medical Decision Making Medical Records Attestation: I reviewed the patient's medical records. Home Medications Current Medication List: was personally reviewed by me Laboratory Data Attestation: I reviewed the patient's lab results. Result diagrams: 02/22/19 20:00 02/22/19 20:00 Lab Results 02/22/19 02/22/19 02/22/19 Range/Units 20:00 20:00 20:00 WBC (4.8-10.8) K/uL RBC (4.2-5.4) M/uL Hgb (12.0-16.0) g/dL Hct (37-47) % MCV (80-100) fL MCH (25-34) pg MCHC (32-36) g/dL RDW Std Deviation (36.4-46.3) fL RDW Coeff of Niru (11.5-14.5) % Plt Count (130-400) K/uL MPV (7.4-10.4) fL Immature Gran % (Auto) % Neut % (Auto) % Lymph % (Auto) % [facility] % (Auto) % Eos % (Auto) % Baso % (Auto) % Immature Gran # (Auto) (0.00-0.02) K/uL Neut # (Auto) (1.4-6.5) K/uL Lymph # (Auto) (1.2-3.4) K/uL [facility] # (Auto) (0.11-0.59) K/uL Eos # (Auto) (0-0.5) K/uL Baso # (Auto) (0-0.2) K/uL VBG pH 7.42 H (7.36-7.41) VBG pCO2 49 (38-50) mmHg VBG pO2 31 mmHg VBG HCO3 31 mmol/L VBG O2 Saturation < 60.0 % VBG Base Excess 5.6 mEq/L Barometric Pressure 725.6 mm/Hg Sodium 129 L (136-145) mmol/L Potassium 3.7 (3.5-5.1) mmol/L Chloride 91 L (98-107) mmol/L Carbon Dioxide 33 H (21-32) mmol/L Anion Gap 5.0 (3-11) BUN 8 (7-18) mg/dl Creatinine 0.40 L (0.6-1.2) mg/dl Est Cr Clr Drug Dosing 76.3 ml/min Est GFR ( Amer) 127.6 Est GFR (Non-Af Amer) 110.1 BUN/Creatinine Ratio 19.0 (10-20) Glucose 87 (70-99) mg/dl Lactate 1.7 (0.4-2.0) mmol/L Calcium 8.6 (8.5-10.1) mg/dl Magnesium 1.4 L (1.8-2.4) mg/dl Total Bilirubin 0.4 (0.2-1) mg/dl AST 14 L (15-37) U/L ALT 9 L (12-78) U/L Alkaline Phosphatase 107 (45-117) U/L Troponin I < 0.015 (0-0.045) ng/ml NT-Pro-B Natriuret Pep 419 (0-900) pg/ml Total Protein 6.8 (6.4-8.2) gm/dl Albumin 3.0 L (3.4-5.0) gm/dl Globulin 3.8 (2.5-4.0) gm/dl Albumin/Globulin Ratio 0.8 L (0.9-2) Lipase 69 L (73-393) U/L Urine Color Urine Appearance (Clear) Urine pH (4.5-7.5) Ur Specific Mccaulley (1.000-1.030) Urine Protein (Negative) Urine Glucose (UA) (Negative) Urine Ketones (Negative) Urine Blood (Negative) Urine Nitrite (Negative) Urine Bilirubin (Negative) Urine Urobilinogen (Negative) Ur Leukocyte Esterase (Negative) Urine WBC (Auto) (0-5) /hpf Urine RBC (Auto) (0-4) /hpf U Hyaline Cast (Auto) (0-5) /lpf U Epithel Cells (Auto) (0-5) /lpf Urine Bacteria (Auto) (Negative) Influenza Type A (PCR) (Neg) Influenza Type B (PCR) (Neg) 02/22/19 02/22/19 02/22/19 Range/Units 20:00 20:14 20:14 WBC 7.76 (4.8-10.8) K/uL RBC 3.23 L (4.2-5.4) M/uL Hgb 11.6 L (12.0-16.0) g/dL Hct 33.3 L (37-47) % MCV 103.1 H (80-100) fL MCH 35.9 H (25-34) pg MCHC 34.8 (32-36) g/dL RDW Std Deviation 59.1 H (36.4-46.3) fL RDW Coeff of Niru 15.6 H (11.5-14.5) % Plt Count 159 (130-400) K/uL MPV 9.8 (7.4-10.4) fL Immature Gran % (Auto) 0.3 % Neut % (Auto) 86.0 % Lymph % (Auto) 5.5 % [facility] % (Auto) 7.5 % Eos % (Auto) 0.6 % Baso % (Auto) 0.1 % Immature Gran # (Auto) 0.02 (0.00-0.02) K/uL Neut # (Auto) 6.67 H (1.4-6.5) K/uL Lymph # (Auto) 0.43 L (1.2-3.4) K/uL [facility] # (Auto) 0.58 (0.11-0.59) K/uL Eos # (Auto) 0.05 (0-0.5) K/uL Baso # (Auto) 0.01 (0-0.2) K/uL VBG pH (7.36-7.41) VBG pCO2 (38-50) mmHg VBG pO2 mmHg VBG HCO3 mmol/L VBG O2 Saturation % VBG Base Excess mEq/L Barometric Pressure mm/Hg Sodium (136-145) mmol/L Potassium (3.5-5.1) mmol/L Chloride (98-107) mmol/L Carbon Dioxide (21-32) mmol/L Anion Gap (3-11) BUN (7-18) mg/dl Creatinine (0.6-1.2) mg/dl Est Cr Clr Drug Dosing ml/min Est GFR ( Amer) Est GFR (Non-Af Amer) BUN/Creatinine Ratio (10-20) Glucose (70-99) mg/dl Lactate (0.4-2.0) mmol/L Calcium (8.5-10.1) mg/dl Magnesium (1.8-2.4) mg/dl Total Bilirubin (0.2-1) mg/dl AST (15-37) U/L ALT (12-78) U/L Alkaline Phosphatase (45-117) U/L Troponin I (0-0.045) ng/ml NT-Pro-B Natriuret Pep (0-900) pg/ml Total Protein (6.4-8.2) gm/dl Albumin (3.4-5.0) gm/dl Globulin (2.5-4.0) gm/dl Albumin/Globulin Ratio (0.9-2) Lipase (73-393) U/L Urine Color Yellow Urine Appearance Clear (Clear) Urine pH 6.5 (4.5-7.5) Ur Specific M[place]ley 1.019 (1.000-1.030) Urine Protein Negative (Negative) Urine Glucose (UA) Negative (Negative) Urine Ketones Negative (Negative) Urine Blood Negative (Negative) Urine Nitrite Negative (Negative) Urine Bilirubin Negative (Negative) Urine Urobilinogen Negative (Negative) Ur Leukocyte Esterase Trace H (Negative) Urine WBC (Auto) 1-5 (0-5) /hpf Urine RBC (Auto) 0-4 (0-4) /hpf U Hyaline Cast (Auto) 1-5 (0-5) /lpf U Epithel Cells (Auto) >30 H (0-5) /lpf Urine Bacteria (Auto) Negative (Negative) Influenza Type A (PCR) Neg for Influ A (Neg) Influenza Type B (PCR) Neg for Influ B (Neg) Imaging Data Radiologist's Impression: Radiology results as stated below per my review and the radiologist's interpretation: XR chest 2V PA/lateral CLINICAL HISTORY: Sternal pain. Choking. Thymic maneuver. COMPARISON STUDY: 05/30/2017 FINDINGS: Postpneumonectomy changes are present on the right. There is evidence for emphysema. There are subtle left basilar opacities. There is no lobar consolidation. A rounded opacity within the left midlung zone is felt to represent a nipple shadow. There are no significant pleural effusions. No pneumo thorax is visualized.[ IMPRESSION: 1. Stable post pneumonectomy changes in the right 2. Emphysema with subtle left basilar opacities. This could indicate a mild left basilar pneumonitis. Clinical and radiographic follow-up is recommended. Electronically signed by: Aristides Gaines M.D. 02/22/2019 8:09 PM ECG Data Attestation: I personally reviewed and interpreted this ECG as follows: Indication: + chest pain Rate (beats per minute): 93 Rhythm: + sinus rhythm ECG ST segments: no ST depression and no ST elevation ECG Findings: + Other (WI, QRS, and QTC wnl ) Blood Pressure Blood Pressure Findings: Normal blood pressure Blood Pressure Disposition: further management by hospitalist SONY Narrative 1929: Past medical records reviewed. The patient was evaluated in room B8. A complete history and physical exam was performed. 1947: The family members contacted me outside the room stating they are very concerned about their mother. They state the patient is unable to take care of herself. They notes she cannot walk much due to her extreme SOB. Her family states she has not been eating or drinking properly and she has lost weight. They reports her symptoms have been present for the past 2 months and have gotten progressively worse. They would like the patient to be placed in a shelter facility but state the patient has been reluctant and not cooperative. They are inquiring about possible rehab and home health care options. 2139: Vital signs stable. Imaging shows no acute injury. Labs show sodium of 129 and Mg f 1.4. Patient will be admitted for magnesium replacement as well as possible shelter placement. Discussed the patient's case with Dr. Ron peguero, [facility] Hospitalist The patient will be evaluated for further management. Impression & Plan Hypomagnesemia Discharge Plan Visit Data *Final* Discharge Date/Time: 02/22/19 23:37 Chief Complaint: Choking Stated Complaint: STERNUM PAIN ED Provider: Philippe Esparza Discharge Problem: Hypomagnesemia Patient Disposition: Admitted As Inpatient Discharge Instructions Interventions: ED Discharge Assessment Last Done: 02/22/19 23:37 The scribe's documentation has been prepared under my direction and personally reviewed by me in its entirety. I confirm that the note above accurately reflects all work, treatment, procedures, and medical decision making performed by me.
[2019-02-23] MEDS ORDERED: ALBUTEROL HFA 8 GM INHALER INH PRN (00:18)
[2019-02-23] MEDS: SODIUM CHLORIDE 0.9% 1000ML 1,000 ML IV SCH ×2 (00:37→07:38)
[2019-02-23] MEDS: SODIUM CHLORIDE 0.9% 500 ML IV SCH (00:39)
[2019-02-23] MEDS: LIDOCAINE 5% 1 PATCH TD SCH ×2 (00:42→21:54)
[2019-02-23] MEDS: TIOTROPIUM BROMIDE 5 PUFF/90 MCG INH INH SCH (07:33)
[2019-02-23] MEDS: HEPARIN SOD 5,000 UNIT/0.5 ML VIAL SQ SCH ×2 (07:38→21:55)
[2019-02-23 08:04] LABS: Basophils # (auto) 0.01 K/uL (0-0.2); Basophils % (auto) 0.2 %; Eosinophils # (auto) 0.03 K/uL (0-0.5); Eosinophils % (auto) 0.5 %; Hematocrit (blood only) 33.2 % (37-47); Hemoglobin 11.4 g/dL (12.0-16.0); Immature Granulocytes # (auto) 0.01 K/uL (0.00-0.02); Immature Granulocytes % (auto) 0.2 %; Lymphocytes # (auto) 0.43 K/uL (1.2-3.4); Lymphocytes % (auto) 6.9 %; Mean Corpuscular Hemoglobin 36.1 pg (25-34); Mean Corpuscular Hgb Conc 34.3 g/dL (32-36); Mean Corpuscular Volume 105.1 fL (80-100); Mean Platelet Volume 9.1 fL (7.4-10.4); Monocytes # (auto) 0.58 K/uL (0.11-0.59); Monocytes % (auto) 9.4 %; Neutrophils # (auto) 5.14 K/uL (1.4-6.5); Neutrophils % (auto) 82.8 %; Platelet Count 158 K/uL (130-400); RDW Coefficient of Variation 15.6 % (11.5-14.5); RDW Standard Deviation 60.2 fL (36.4-46.3); Red Blood Count 3.16 M/uL (4.2-5.4)
[2019-02-23 08:29] LABS: Est GFR (African American) 137.3; Est GFR (Non-African American) 118.5; Potassium 3.5 mmol/L (3.5-5.1)
[2019-02-23 08:30] LABS: BUN Creatinine Ratio 16.4 (10-20); Calcium 8.4 mg/dl (8.5-10.1); Creatinine Clr Calc Pharmacy 93.4 ml/min; Magnesium 1.7 mg/dl (1.8-2.4)
[2019-02-23] MEDS: FOLIC ACID 1 MG TAB PO SCH (12:08)
[2019-02-23] MEDS: THIAMINE HCL 100 MG TAB PO SCH (12:09)
[2019-02-23] MEDS: VITAMIN B COMPLEX TAB PO SCH (12:10)
--- NOTE | 2019-02-23 12:58 | Fluoroscopy Report ---
FL video swallow HISTORY: assess for aspiration TECHNIQUE: Video fluoroscopic evaluation of swallowing was performed in the AP and lateral projection s by the speech pathology staff. The patient is fed nectar-thick and thin liquid barium, a barium coa dennis wafer, and barium pudding. FLUOROSCOPY TIME: 3.4 minutes. A cine loop submitted. COMPARISON STUDY: None. FINDINGS: A few episodes of incomplete epiglottic deflection seen within the serial swallows of thin liquid barium. This resulted in moderate hypopharyngeal residue and a small amount of aspiration. Mod erate esophageal dysmotility. IMPRESSION: 1. Aspiration identified with the thin liquid barium due to episodes of incomplete epiglottic deflect ion. 2. Please see the speech pathologist report for detailed findings and recommendations. Electronically signed by: Miguel Zhang M.D. 02/23/2019 12:56 PM
[2019-02-23] MEDS: ALBUT/IPRATROP 3MG/0.5MG NEB 3 ML VIAL NEB SCH ×2 (13:48→20:04)
[2019-02-23] MEDS: predniSONE 20 MG TAB PO SCH (14:27)
[2019-02-23] MEDS: NICOTINE 21 MG/24 HR TDSY TD SCH (14:27)
--- NOTE | 2019-02-23 14:27 | Hospitalist Progress Note ---
Date of Service February 23, 2019 Assessment & Plan (1) Chronic obstructive pulmonary disease: Now with mild acute exacerbation with increased sputum. - Oral abx, steroids, DuoNebs standing and PRN - Sputum culture (2) Depression: Meets depression diagnosis with depressed/sad thoughts, lack of energy, anhedonia, and psychomotor slowing. No suicidal ideation or passive wish per my conversation on 02/23. Alcohol is certainly playing a role. - Started low-dose citalopram on 02/23 - Counseled the patient and family that it can take 4-6 weeks for effect. (3) Choking episode: Video-swallow on 02/23 showed esophageal dysmotility (likely from alcohol intake) and aspiration with thin liquids with straws. - Follow speech recs (4) Squamous cell carcinoma of lung: History of squamous cell s/p right pneumonectomy at [facility]. Follows with Fredy Thomas. - Last CT chest in 09/2018 was negative for recurrence. - Outpatient follow up (5) Alcoholism: Patient reports she drinks about 3-4 cranberry/vodka drinks per day. Probably with a bit more than a shot per drink. No hx of withdrawal, seizures, DTs. - AWSS ativan protocol in place - Folate, thiamine, Vit B complex supplements initiated; would recommend this continue (perhaps in form of chewable) as outpatient to tolerate on daily basis (6) Hyponatremia: Likely related to alcohol, chronic malnutrition. - Boost shakes, encourage good nutrition (7) Protein calorie malnutrition: Chronic in setting of lung ca, smoking, alcohol, poor PO intake. - Nutrition/dietary consult placed; resume boost products (8) DVT prophylaxis: Heparin 5000 units BID Teodoro (Son): [phone] would like to be kept in touch. Subjective Reports a cough and some shortness of breath. Otherwise, some soreness from her ribs where the Heilmich occurred. Reports no fevers/chills, chest pain, abdominal pain, nausea, or vomiting. Physical Exam Constitutional: + cachectic; no acute distress Eyes: EOM intact bilaterally; no conjunctival abnormality ENMT: external ear and nose normal, oropharynx normal Neck: trachea midline, no thyromegaly normal visual inspection Respiratory: normal respiratory effort, lungs clear to auscultation no respiratory distress Cardiovascular: RRR, no murmur, no edema Gastrointestinal (Abdomen): Inspection/Auscultation: abdomen normal to inspection; abdomen not distended Musculoskeletal: no cyanosis or clubbing, extremities motor strength 5/5 Skin: no rashes, warm and dry Neurologic: moves all extremities and awake Psychiatric: Orientation: alert, oriented to person and cooperative Results & Data Vital Signs (Past 12 Hours) Vital Signs Temp Pulse Resp BP BP Pulse Ox 02/23/19 13:48 77 19 96 02/23/19 11:00 36.6 C 99 H 16 106/72 95 02/23/19 07:00 36.7 C 73 18 119/74 98 02/23/19 04:28 36.7 C 82 18 119/76 99 PG Care Time/CCT Total # of Minutes Spent Total Time Spent with Patient: Total time spent is greater than 50% in coordination of care (as documented) at patient's floor/unit and/or counseling patient:
[2019-02-23] MEDS ORDERED: MAGNESIUM SULFATE / D5W 1 GM/100 ML BAG IV ONE (14:30)
[2019-02-23] MEDS: GUAIFENESIN/CODEINE 100MG/10MG 5ML UDC PO PRN (18:26)
[2019-02-23] MEDS: IBUPROFEN 200 MG TAB PO PRN (19:39)
[2019-02-23] MEDS: CEFDINIR 300 MG CAP PO SCH (21:55)
[2019-02-24] MEDS: GUAIFENESIN/CODEINE 100MG/10MG 5ML UDC PO PRN ×2 (00:40→16:34)
[2019-02-24] MEDS ORDERED: SODIUM CHLORIDE 0.65% NA SOLN 45 ML (OCEAN) PRN (02:07)
--- NOTE | 2019-02-24 02:44 | Billing Data ---
Coding Level of Care Code 75085 Initial Inpt Care Lvl 3
[2019-02-24] MEDS: IBUPROFEN 200 MG TAB PO PRN ×2 (04:41→20:54)
[2019-02-24] MEDS: ALBUT/IPRATROP 3MG/0.5MG NEB 3 ML VIAL NEB SCH (07:02)
[2019-02-24 07:26] LABS: Hematocrit (blood only) 29.4 % (37-47); Hemoglobin 10.1 g/dL (12.0-16.0); Mean Corpuscular Hemoglobin 36.2 pg (25-34); Mean Corpuscular Hgb Conc 34.4 g/dL (32-36); Mean Corpuscular Volume 105.4 fL (80-100); Mean Platelet Volume 8.9 fL (7.4-10.4); Platelet Count 135 K/uL (130-400); RDW Coefficient of Variation 15.5 % (11.5-14.5); RDW Standard Deviation 59.5 fL (36.4-46.3); Red Blood Count 2.79 M/uL (4.2-5.4); White Blood Count 7.69 K/uL (4.8-10.8)
[2019-02-24 07:39] LABS: Prothrombin Time 10.5 Seconds (9.0-12.0)
[2019-02-24] MEDS: FOLIC ACID 1 MG TAB PO SCH (07:58)
[2019-02-24] MEDS: predniSONE 20 MG TAB PO SCH (07:58)
[2019-02-24] MEDS: VITAMIN B COMPLEX TAB PO SCH (07:58)
[2019-02-24] MEDS: THIAMINE HCL 100 MG TAB PO SCH (07:59)
[2019-02-24] MEDS: TIOTROPIUM BROMIDE 5 PUFF/90 MCG INH INH SCH (07:59)
[2019-02-24] MEDS: CEFDINIR 300 MG CAP PO SCH ×2 (08:00→20:54)
[2019-02-24] MEDS: NICOTINE 21 MG/24 HR TDSY TD SCH (08:00)
[2019-02-24] MEDS: CITALOPRAM 20 MG TAB PO SCH (08:02)
[2019-02-24 08:07] LABS: Albumin Level 2.6 gm/dl (3.4-5.0); BUN Creatinine Ratio 19.5 (10-20); Calcium 8.5 mg/dl (8.5-10.1); Est GFR (African American) 129.7; Est GFR (Non-African American) 111.9; Magnesium 1.5 mg/dl (1.8-2.4); Potassium 3.6 mmol/L (3.5-5.1)
[2019-02-24 08:10] LABS: Albumin Globulin Ratio 0.8 (0.9-2); Bilirubin,Total 0.5 mg/dl (0.2-1); Globulin 3.2 gm/dl (2.5-4.0); Phosphorus 2.7 mg/dl (2.5-4.9); Total Protein 5.8 gm/dl (6.4-8.2)
[2019-02-24] MEDS: HEPARIN SOD 5,000 UNIT/0.5 ML VIAL SQ SCH ×3 (08:49→20:58)
[2019-02-24] MEDS: MAGNESIUM SULFATE / D5W 1 GM/100 ML BAG IV SCH ×2 (09:36→10:33)
[2019-02-24] MEDS: BENZONATATE 100 MG CAPSULE PO PRN ×2 (11:00→22:10)
[2019-02-24] MEDS: SODIUM CHLORIDE 0.9% NEBU SOLN 3 ML NEB SCH ×2 (13:15→19:19)
--- NOTE | 2019-02-24 14:19 | Hospitalist Progress Note ---
Date of Service February 24, 2019 Assessment & Plan (1) Chronic obstructive pulmonary disease: Chronic respiratory failure with hypoxia. On home O2. Now with mild acute exacerbation with increased sputum. - Sputum culture on 02/23 grew variety of Gram(+) and Gram(-) bacteria - Normal oral thomas. - Oral abx, steroids, DuoNebs PRN - Added pulmonary toilet today with nebulized saline, guaifenesin, and flutter valve (2) Depression: Meets depression diagnosis with depressed/sad thoughts, lack of energy, anhedonia, and psychomotor slowing. No suicidal ideation or passive wish per my conversation on 02/23. Alcohol is certainly playing a role. - Started low-dose citalopram on 02/23 - Counseled the patient and family that it can take 4-6 weeks for effect. (3) Choking episode: Video-swallow on 02/23 showed esophageal dysmotility (likely from alcohol intake) and aspiration with thin liquids with straws. - Follow speech recs: * Soft, bite-sized, slipper thin liquids * Aspiration and reflux precautions: Fully upright for meals. Remain upright for 30 minutes after meals. Head up bed up at 30 degrees. * Alternate solids and liquids. * No straws! * Crush medications and put in applesauce or pudding. * Dysphagia therapy (4) Squamous cell carcinoma of lung: History of squamous cell s/p right pneumonectomy at [facility]. Follows with Fredy Thomas. - Last CT chest in 09/2018 was negative for recurrence. - Outpatient follow up (5) Alcoholism: Patient reports she drinks about 3-4 cranberry/vodka drinks per day. Probably with a bit more than a shot per drink. No hx of withdrawal, seizures, DTs. - AWSS ativan protocol in place -> Largely 0s. No PRN benzo needed. - Folate, thiamine, Vit B complex supplements initiated; would recommend this continue (perhaps in form of chewable) as outpatient to tolerate on daily basis. (6) Hyponatremia: Likely related to alcohol, chronic malnutrition. - Boost shakes, encourage good nutrition (7) Protein calorie malnutrition: Severe protein-calorie malnutrition. Chronic in setting of lung ca, smoking, alcohol, poor PO intake. - Nutrition/dietary consult placed; resume boost products (8) DVT prophylaxis: Heparin 5000 units BID Teodoro (Son): [phone] would like to be kept in touch. Subjective Still with cough, shortness of breath, and sputum production which she reports hasn't improved dramatically since yesterday. Has some chest soreness from coughing. Reports no fevers/chills, abdominal pain, nausea, or vomiting. Physical Exam Constitutional: + cachectic; no acute distress Eyes: EOM intact bilaterally; no conjunctival abnormality ENMT: external ear and nose normal, oropharynx normal Neck: trachea midline, no thyromegaly normal visual inspection Respiratory: + labored breathing and + cough; no respiratory distress Auscultation: + rales; no wheezes Cardiovascular: RRR, no murmur, no edema Gastrointestinal (Abdomen): Inspection/Auscultation: abdomen normal to inspection; abdomen not distended Musculoskeletal: no cyanosis or clubbing, extremities motor strength 5/5 Skin: no rashes, warm and dry Neurologic: moves all extremities and awake Psychiatric: Orientation: alert, oriented to person and cooperative Results & Data Vital Signs (Past 12 Hours) Vital Signs Temp Pulse Resp BP Pulse Ox 02/24/19 11:27 36.5 C 95 H 16 106/61 98 02/24/19 07:44 36.5 C 85 16 114/69 97 02/24/19 07:02 85 16 97 02/24/19 05:16 36.4 C L 88 20 108/62 100 PG Care Time/CCT Total # of Minutes Spent Total Time Spent with Patient: Total time spent is greater than 50% in coordination of care (as documented) at patient's floor/unit and/or counseling patient:
[2019-02-24] MEDS: LIDOCAINE 5% 1 PATCH TD SCH (20:53)
[2019-02-25] MEDS: SODIUM CHLORIDE 0.9% NEBU SOLN 3 ML NEB SCH ×3 (07:09→20:28)
[2019-02-25] MEDS: CEFDINIR 300 MG CAP PO SCH ×2 (07:59→21:40)
[2019-02-25] MEDS: IBUPROFEN 200 MG TAB PO PRN (07:59)
[2019-02-25] MEDS: predniSONE 20 MG TAB PO SCH (07:59)
[2019-02-25] MEDS: VITAMIN B COMPLEX TAB PO SCH (08:00)
[2019-02-25] MEDS: CITALOPRAM 20 MG TAB PO SCH (08:00)
[2019-02-25] MEDS: FOLIC ACID 1 MG TAB PO SCH (08:00)
[2019-02-25] MEDS: THIAMINE HCL 100 MG TAB PO SCH (08:00)
[2019-02-25] MEDS: TIOTROPIUM BROMIDE 5 PUFF/90 MCG INH INH SCH (08:00)
[2019-02-25] MEDS: NICOTINE 21 MG/24 HR TDSY TD SCH (08:03)
[2019-02-25] MEDS: HEPARIN SOD 5,000 UNIT/0.5 ML VIAL SQ SCH ×2 (08:03→20:51)
[2019-02-25 09:28] LABS: BUN Creatinine Ratio 23.1 (10-20); Calcium 8.8 mg/dl (8.5-10.1); Creatinine Clr Calc Pharmacy 75.2 ml/min; Est GFR (African American) 123.6; Est GFR (Non-African American) 106.7; Magnesium 1.4 mg/dl (1.8-2.4); Potassium 3.7 mmol/L (3.5-5.1)
--- NOTE | 2019-02-25 11:09 | Hospitalist Progress Note ---
Date of Service February 25, 2019 Assessment & Plan (1) Chronic obstructive pulmonary disease: Chronic respiratory failure with hypoxia. On home O2. Now with mild acute exacerbation with increased sputum. - Sputum culture on 02/23 grew variety of Gram(+) and Gram(-) bacteria - Normal oral thomas. - Oral abx, steroids, DuoNebs PRN - Added pulmonary toilet on 02/24 with nebulized saline, guaifenesin, and flutter valve - Improving substantially today. (2) Depression: Meets depression diagnosis with depressed/sad thoughts, lack of energy, anhedonia, and psychomotor slowing. No suicidal ideation or passive wish per my conversation on 02/23. Alcohol is certainly playing a role. - Started low-dose citalopram on 02/23 - Counseled the patient and family that it can take 4-6 weeks for effect. - No side effects seen so far. (3) Choking episode: Video-swallow on 02/23 showed esophageal dysmotility (likely from alcohol intake) and aspiration with thin liquids with straws. - Follow speech recs: * Soft, bite-sized, slipper thin liquids * Aspiration and reflux precautions: Fully upright for meals. Remain upright for 30 minutes after meals. Head up bed up at 30 degrees. * Alternate solids and liquids. * No straws! * Crush medications and put in applesauce or pudding. * Dysphagia therapy (4) Squamous cell carcinoma of lung: History of squamous cell s/p right pneumonectomy at [facility]. Follows with Fredy Thomas. - Last CT chest in 09/2018 was negative for recurrence. - Outpatient follow up (5) Alcoholism: Patient reports she drinks about 3-4 cranberry/vodka drinks per day. Probably with a bit more than a shot per drink. No hx of withdrawal, seizures, DTs. - AWSS ativan protocol in place -> Largely 0s. No PRN benzo needed. Will stop today. - Folate, thiamine, Vit B complex supplements initiated; would recommend this continue (perhaps in form of chewable) as outpatient to tolerate on daily basis. (6) Hyponatremia: Likely related to alcohol, chronic malnutrition. - Boost shakes, encourage good nutrition (7) Protein calorie malnutrition: Severe protein-calorie malnutrition. Chronic in setting of lung ca, smoking, alcohol, poor PO intake. - Nutrition/dietary consult placed; resume boost products (8) DVT prophylaxis: Heparin 5000 units BID Teodoro (Son): [phone] would like to be kept in touch. Subjective Doing better today and having less cough. Less productive cough. Overall, doing quite well. Reports no fevers/chills, chest pain, shortness of breath, abdominal pain, nausea, or vomiting. Physical Exam Constitutional: + cachectic; no acute distress Eyes: EOM intact bilaterally; no conjunctival abnormality ENMT: external ear and nose normal, oropharynx normal Neck: trachea midline, no thyromegaly normal visual inspection Respiratory: normal respiratory effort, lungs clear to auscultation + cough; no respiratory distress Auscultation: no rales and no wheezes Cardiovascular: RRR, no murmur, no edema Gastrointestinal (Abdomen): Inspection/Auscultation: abdomen normal to inspection; abdomen not distended Musculoskeletal: no cyanosis or clubbing, extremities motor strength 5/5 Skin: no rashes, warm and dry Neurologic: moves all extremities and awake Psychiatric: Orientation: alert, oriented to person and cooperative Results & Data Vital Signs (Past 12 Hours) Vital Signs Temp Pulse Pulse Resp BP Pulse Ox 02/25/19 08:10 36.5 C 83 19 114/71 96 02/25/19 07:09 71 19 98 02/25/19 04:31 36.3 C L 78 18 136/74 98 02/25/19 00:56 81 02/24/19 23:27 36.4 C L 81 18 135/72 99 PG Care Time/CCT Total # of Minutes Spent Total Time Spent with Patient: Total time spent is greater than 50% in coordination of care (as documented) at patient's floor/unit and/or counseling patient:
[2019-02-25] MEDS: MAGNESIUM SULFATE / D5W 1 GM/100 ML BAG IV SCH ×2 (11:21→13:05)
[2019-02-25] MEDS: GUAIFENESIN/CODEINE 100MG/10MG 5ML UDC PO PRN (16:49)
[2019-02-25] MEDS: LIDOCAINE 5% 1 PATCH TD SCH (21:40)
[2019-02-26] MEDS: SODIUM CHLORIDE 0.9% NEBU SOLN 3 ML NEB SCH (07:30)
[2019-02-26 08:25] LABS: Hematocrit (blood only) 37.3 % (37-47); Hemoglobin 12.3 g/dL (12.0-16.0); Mean Corpuscular Hemoglobin 35.8 pg (25-34); Mean Corpuscular Volume 108.4 fL (80-100); Mean Platelet Volume 9.1 fL (7.4-10.4); Platelet Count 198 K/uL (130-400); RDW Coefficient of Variation 15.3 % (11.5-14.5); RDW Standard Deviation 60.1 fL (36.4-46.3); Red Blood Count 3.44 M/uL (4.2-5.4); White Blood Count 10.22 K/uL (4.8-10.8)
[2019-02-26] MEDS: CEFDINIR 300 MG CAP PO SCH (08:40)
[2019-02-26] MEDS: CITALOPRAM 20 MG TAB PO SCH (08:41)
[2019-02-26] MEDS: IBUPROFEN 200 MG TAB PO PRN (08:41)
[2019-02-26] MEDS: VITAMIN B COMPLEX TAB PO SCH (08:41)
[2019-02-26] MEDS: FOLIC ACID 1 MG TAB PO SCH (08:41)
[2019-02-26] MEDS: predniSONE 20 MG TAB PO SCH (08:41)
[2019-02-26] MEDS: THIAMINE HCL 100 MG TAB PO SCH (08:41)
[2019-02-26] MEDS: HEPARIN SOD 5,000 UNIT/0.5 ML VIAL SQ SCH ×2 (08:42→20:36)
[2019-02-26] MEDS: NICOTINE 21 MG/24 HR TDSY TD SCH (08:42)
[2019-02-26] MEDS: TIOTROPIUM BROMIDE 5 PUFF/90 MCG INH INH SCH (08:43)
[2019-02-26] MEDS: BENZONATATE 100 MG CAPSULE PO PRN (08:44)
[2019-02-26 08:52] LABS: BUN Creatinine Ratio 30.3 (10-20); Calcium 8.9 mg/dl (8.5-10.1); Est GFR (African American) 132.1; Magnesium 1.6 mg/dl (1.8-2.4); Phosphorus 2.8 mg/dl (2.5-4.9); Potassium 4.2 mmol/L (3.5-5.1)
[2019-02-26] MEDS: GUAIFENESIN/CODEINE 100MG/10MG 5ML UDC PO PRN (08:56)
[2019-02-26] MEDS: MAGNESIUM SULFATE / D5W 1 GM/100 ML BAG IV SCH ×4 (10:46→14:24)
[2019-02-26] MEDS ORDERED: AZITHROMYCIN 500 MG in DEXTROSE 5% 250 ML IV ONE (12:07)
--- NOTE | 2019-02-26 13:20 | Hospitalist Progress Note ---
Date of Service February 26, 2019 Assessment & Plan (1) Chronic obstructive pulmonary disease: Chronic respiratory failure with hypoxia. On home O2. Now with mild acute exacerbation with increased sputum. - Sputum culture on 02/23 grew variety of Gram(+) and Gram(-) bacteria - Normal oral thomas. - Oral abx, steroids, DuoNebs PRN - Added pulmonary toilet on 02/24 with nebulized saline, guaifenesin, and flutter valve - On 02/26, with worse cough and shortness of breath and pain today. Repeat CXR, MRSA swab, and procalcitonin. Broadened abx to include atypicals as well with levofloxacin. (2) Depression: Meets depression diagnosis with depressed/sad thoughts, lack of energy, anhedonia, and psychomotor slowing. No suicidal ideation or passive wish per my conversation on 02/23. Alcohol is certainly playing a role. - Started low-dose citalopram on 02/23 - Counseled the patient and family that it can take 4-6 weeks for effect. - No side effects seen so far. Will get EKG today. (3) Choking episode: Video-swallow on 02/23 showed esophageal dysmotility (likely from alcohol intake) and aspiration with thin liquids with straws. - Follow speech recs: * Soft, bite-sized, slipper thin liquids * Aspiration and reflux precautions: Fully upright for meals. Remain upright for 30 minutes after meals. Head up bed up at 30 degrees. * Alternate solids and liquids. * No straws! * Crush medications and put in applesauce or pudding. * Dysphagia therapy (4) Squamous cell carcinoma of lung: History of squamous cell s/p right pneumonectomy at [facility]. Follows with Fredy Thomas. - Last CT chest in 09/2018 was negative for recurrence. - Outpatient follow up (5) Alcoholism: Patient reports she drinks about 3-4 cranberry/vodka drinks per day. Probably with a bit more than a shot per drink. No hx of withdrawal, seizures, DTs. - AWSS ativan protocol in place -> Largely 0s. No PRN benzo needed. Will stop today. - Folate, thiamine, Vit B complex supplements initiated; would recommend this continue (perhaps in form of chewable) as outpatient to tolerate on daily basis. (6) Hyponatremia: Likely related to alcohol, chronic malnutrition. - Boost shakes, encourage good nutrition (7) Protein calorie malnutrition: Severe protein-calorie malnutrition. Chronic in setting of lung ca, smoking, alcohol, poor PO intake. - Nutrition/dietary consult placed; resume boost products (8) DVT prophylaxis: Heparin 5000 units BID Teodoro (Son): [phone] would like to be kept in touch. Subjective Feels like there is more cough today. Having some subjective fevers/chills. More chest pain as well. Reports no fevers/chills, chest pain, shortness of breath, abdominal pain, nausea, or vomiting. Physical Exam Constitutional: + cachectic; no acute distress Eyes: EOM intact bilaterally; no conjunctival abnormality ENMT: external ear and nose normal, oropharynx normal Neck: trachea midline, no thyromegaly normal visual inspection Respiratory: normal respiratory effort, lungs clear to auscultation + cough; no respiratory distress Auscultation: no rales and no wheezes Cardiovascular: RRR, no murmur, no edema Gastrointestinal (Abdomen): Inspection/Auscultation: abdomen normal to inspection; abdomen not distended Musculoskeletal: no cyanosis or clubbing, extremities motor strength 5/5 Skin: no rashes, warm and dry Neurologic: moves all extremities and awake Psychiatric: Orientation: alert, oriented to person and cooperative Results & Data Vital Signs (Past 12 Hours) Vital Signs Temp Pulse Pulse Resp BP Pulse Ox 02/26/19 07:46 36.4 C L 87 21 132/76 99 02/26/19 07:31 79 18 96 PG Care Time/CCT Total # of Minutes Spent Total Time Spent with Patient: Total time spent is greater than 50% in coordination of care (as documented) at patient's floor/unit and/or counseling patient:
--- NOTE | 2019-02-26 13:21 | XRay Report ---
XR chest 2V PA/lateral CLINICAL HISTORY: Worsening cough dyspnea COMPARISON STUDY: 02/22/2019 FINDINGS: Operative changes again noted to be consistent with a right pneumonectomy. The mediastinum and cardiac silhouettes are shifted slightly to the right hepatic compensatory basis. Progressive interstitial infiltrate left base. Potential small nodular density versus nipple/overlap shadow versus nodular density left base. Left mid and upper lung are clear. IMPRESSION: 1. Stable findings of a right pneumonectomy. 2. Progressive interstitial infiltrate left base. 3. Artifact versus nodular density left lung base. The above report was generated using voice recognition software. It may contain grammatical, syntax or spelling errors. Electronically signed by: Rudy Will M.D. 02/26/2019 1:20 PM
[2019-02-26] MEDS: MoRPHine SULFATE 2 MG/ML CARP IV PRN ×2 (13:51→21:36)
[2019-02-26] MEDS: LEVOFLOXACIN/D5W 750 MG/150 ML BAG IV SCH (15:29)
[2019-02-26] MEDS: LIDOCAINE 5% 1 PATCH TD SCH (22:26)
[2019-02-27] MEDS: MoRPHine SULFATE 2 MG/ML CARP IV PRN ×3 (06:27→22:10)
[2019-02-27] MEDS: THIAMINE HCL 100 MG TAB PO SCH (07:39)
[2019-02-27] MEDS: NICOTINE 21 MG/24 HR TDSY TD SCH (07:39)
[2019-02-27] MEDS: predniSONE 20 MG TAB PO SCH (07:40)
[2019-02-27] MEDS: CITALOPRAM 20 MG TAB PO SCH (07:40)
[2019-02-27] MEDS: VITAMIN B COMPLEX TAB PO SCH (07:40)
[2019-02-27] MEDS: TIOTROPIUM BROMIDE 5 PUFF/90 MCG INH INH SCH (07:40)
[2019-02-27] MEDS: FOLIC ACID 1 MG TAB PO SCH (07:40)
[2019-02-27] MEDS: HEPARIN SOD 5,000 UNIT/0.5 ML VIAL SQ SCH ×2 (07:40→20:08)
[2019-02-27 08:32] LABS: Hematocrit (blood only) 34.7 % (37-47); Hemoglobin 11.6 g/dL (12.0-16.0); Mean Corpuscular Hemoglobin 35.9 pg (25-34); Mean Corpuscular Hgb Conc 33.4 g/dL (32-36); Mean Corpuscular Volume 107.4 fL (80-100); Platelet Count 170 K/uL (130-400); RDW Coefficient of Variation 14.7 % (11.5-14.5); RDW Standard Deviation 58.1 fL (36.4-46.3); Red Blood Count 3.23 M/uL (4.2-5.4); White Blood Count 7.62 K/uL (4.8-10.8)
[2019-02-27 09:08] LABS: BUN Creatinine Ratio 28.5 (10-20); Calcium 8.7 mg/dl (8.5-10.1); Creatinine Clr Calc Pharmacy 89.5 ml/min; Est GFR (African American) 130.9; Est GFR (Non-African American) 112.9; Magnesium 1.7 mg/dl (1.8-2.4); Potassium 4.3 mmol/L (3.5-5.1)
[2019-02-27 09:09] LABS: Phosphorus 2.9 mg/dl (2.5-4.9)
[2019-02-27 13:43] LABS: Creatinine Urine Random 51.2 mg/dl
[2019-02-27] MEDS: LEVOFLOXACIN/D5W 750 MG/150 ML BAG IV SCH (14:12)
--- NOTE | 2019-02-27 14:47 | Hospitalist Progress Note ---
Date of Service February 27, 2019 Assessment & Plan (1) SIADH (syndrome of inappropriate ADH production): Due to SIADH, as her urine is more concentrated than her serum. Likely related to lung issues and poor solute intake (low protein intake related to alcohol, smoking, and chronic malnutrition). - Boost shakes, encourage good nutrition - Free water restriction - Monitor (2) Chronic obstructive pulmonary disease: Chronic respiratory failure with hypoxia. On home O2. Now with mild acute exacerbation with increased sputum. - Sputum culture on 02/23 grew variety of Gram(+) and Gram(-) bacteria - Normal oral thomas. - Oral abx, steroids, DuoNebs PRN - Added pulmonary toilet on 02/24 with nebulized saline, guaifenesin, and flutter valve - On 02/27, with improved cough and shortness of breath and pain today. Switched abx to levofloxacin for sensitivities and atypical coverage. (3) Depression: Meets depression diagnosis with depressed/sad thoughts, lack of energy, anhedonia, and psychomotor slowing. No suicidal ideation or passive wish per my conversation on 02/23. Alcohol is certainly playing a role. - Started low-dose citalopram on 02/23 - Counseled the patient and family that it can take 4-6 weeks for effect. - No side effects seen so far. QTc on 02/26 was 440. (4) Choking episode: Video-swallow on 02/23 showed esophageal dysmotility (likely from alcohol intake) and aspiration with thin liquids with straws. - Follow speech recs: * Soft, bite-sized, slipper thin liquids * Aspiration and reflux precautions: Fully upright for meals. Remain upright for 30 minutes after meals. Head up bed up at 30 degrees. * Alternate solids and liquids. * No straws! * Crush medications and put in applesauce or pudding. * Dysphagia therapy (5) Squamous cell carcinoma of lung: History of squamous cell s/p right pneumonectomy at [facility]. Follows with Fredy Thomas. - Last CT chest in 09/2018 was negative for recurrence. - Outpatient follow up (6) Alcoholism: Patient reports she drinks about 3-4 cranberry/vodka drinks per day. Probably with a bit more than a shot per drink. No hx of withdrawal, seizures, DTs. - AWSS ativan protocol in place -> Largely 0s. No PRN benzo needed. Will stop today. - Folate, thiamine, Vit B complex supplements initiated; would recommend this continue (perhaps in form of chewable) as outpatient to tolerate on daily basis. (7) Protein calorie malnutrition: Severe protein-calorie malnutrition. Chronic in setting of lung ca, smoking, alcohol, poor PO intake. - Nutrition/dietary consult placed; resume boost products (8) DVT prophylaxis: Heparin 5000 units BID Teodoro (Son): [phone] would like to be kept in touch. Subjective Doing better today. Cough has improved. Less shortness of breath than yesterday. The rib pain is improving. Reports no fevers/chills, abdominal pain, nausea, or vomiting. Physical Exam Constitutional: + cachectic; no acute distress Eyes: EOM intact bilaterally; no conjunctival abnormality ENMT: external ear and nose normal, oropharynx normal Neck: trachea midline, no thyromegaly normal visual inspection Respiratory: normal respiratory effort, lungs clear to auscultation + cough; no respiratory distress Auscultation: no rales and no wheezes Cardiovascular: RRR, no murmur, no edema Gastrointestinal (Abdomen): Inspection/Auscultation: abdomen normal to inspection; abdomen not distended Musculoskeletal: no cyanosis or clubbing, extremities motor strength 5/5 Skin: no rashes, warm and dry Neurologic: moves all extremities and awake Psychiatric: Orientation: alert, oriented to person and cooperative Results & Data Vital Signs (Past 12 Hours) Vital Signs Temp Pulse Resp BP Pulse Ox 02/27/19 07:32 36.5 C 77 18 116/65 97 PG Care Time/CCT Total # of Minutes Spent Total Time Spent with Patient: Total time spent is greater than 50% in coordination of care (as documented) at patient's floor/unit and/or counseling patient:
[2019-02-27] MEDS: LIDOCAINE 5% 1 PATCH TD SCH (20:07)
[2019-02-28] MEDS: MoRPHine SULFATE 2 MG/ML CARP IV PRN ×3 (07:17→21:11)
[2019-02-28] MEDS: THIAMINE HCL 100 MG TAB PO SCH (07:18)
[2019-02-28] MEDS: CITALOPRAM 20 MG TAB PO SCH (07:18)
[2019-02-28] MEDS: NICOTINE 21 MG/24 HR TDSY TD SCH (07:18)
[2019-02-28] MEDS: HEPARIN SOD 5,000 UNIT/0.5 ML VIAL SQ SCH ×2 (07:18→21:10)
[2019-02-28] MEDS: FOLIC ACID 1 MG TAB PO SCH (07:18)
[2019-02-28] MEDS: predniSONE 20 MG TAB PO SCH (07:19)
[2019-02-28] MEDS: VITAMIN B COMPLEX TAB PO SCH (07:19)
[2019-02-28] MEDS: TIOTROPIUM BROMIDE 5 PUFF/90 MCG INH INH SCH (08:23)
[2019-02-28 08:25] LABS: BUN Creatinine Ratio 33.6 (10-20); Calcium 8.9 mg/dl (8.5-10.1); Creatinine Clr Calc Pharmacy 84.9 ml/min; Est GFR (African American) 128.6; Potassium 4.8 mmol/L (3.5-5.1)
[2019-02-28 11:00] LABS: Magnesium 1.3 mg/dl (1.8-2.4); Phosphorus 3.5 mg/dl (2.5-4.9)
[2019-02-28] MEDS: MAGNESIUM SULFATE / D5W 1 GM/100 ML BAG IV SCH ×4 (12:43→17:31)
--- NOTE | 2019-02-28 14:54 | Hospitalist Progress Note ---
Date of Service February 28, 2019 Assessment & Plan (1) SIADH (syndrome of inappropriate ADH production): Due to SIADH, as her urine is more concentrated than her serum. Likely related to lung issues and poor solute intake (low protein intake related to alcohol, smoking, and chronic malnutrition). - Boost shakes, encourage good nutrition - Free water restriction at 1,200 mL -> Told her to only drink protein shakes and avoid any free water. - RN notes she only eats tiny portion of her tray each meal. She says this is because she doesn't like it and/or it's cold. Asked son to bring in high fat, high protein snacks which he will do. The more solute she eats, the better she will be able to raise her sodium. - Given likely chronicity of this issue, I opted against tolvaptan as this doesn't seem like a viable long-term solution to her SIADH. In the end, she needs to eat more protein to help raise her nutritional status. (2) Chronic obstructive pulmonary disease: Chronic respiratory failure with hypoxia. On home O2. Now with mild acute exacerbation with increased sputum. Sputum culture on 02/23 grew Kluyvera ascorbata & Klebsiella oxytoca. - On 02/26, switched abx to levofloxacin for bacteria sensitivities and atypical coverage. - Improving. Finished steroids on 02/28. Continue levofloxacin until 03/02 for a 5-day course. - Continue pulmonary toilet with flutter valve. (3) Depression: Meets depression diagnosis with depressed/sad thoughts, lack of energy, anhedonia, and psychomotor slowing. No suicidal ideation or passive wish per my conversation on 02/23. Alcohol is certainly playing a role. - Started low-dose citalopram on 02/23 - Counseled the patient and family that it can take 4-6 weeks for effect. - No side effects seen so far. QTc on 02/26 was 440. Repeat today given levofloxacin as well. (4) Choking episode: Video-swallow on 02/23 showed esophageal dysmotility (likely from alcohol intake) and aspiration with thin liquids with straws. - Follow speech recs: * Soft, bite-sized, slipper thin liquids * Aspiration and reflux precautions: Fully upright for meals. Remain upright for 30 minutes after meals. Head up bed up at 30 degrees. * Alternate solids and liquids. * No straws! * Crush medications and put in applesauce or pudding. * Dysphagia therapy (5) Squamous cell carcinoma of lung: History of squamous cell s/p right pneumonectomy at [facility]. Follows with Fredy Thomas. - Last CT chest in 09/2018 was negative for recurrence. - Outpatient follow up (6) Alcoholism: Patient reports she drinks about 3-4 cranberry/vodka drinks per day. Probably with a bit more than a shot per drink. No hx of withdrawal, seizures, DTs. - AWSS carried out initially. All 0s. Stopped. - Folate, thiamine, Vit B complex supplements initiated; would recommend this continue (perhaps in form of chewable) as outpatient to tolerate on daily basis. (7) Protein calorie malnutrition: Severe protein-calorie malnutrition. Chronic in setting of lung ca, smoking, alcohol, poor PO intake. - Nutrition/dietary consult placed; boost products. Discussed with patient and family. (8) DVT prophylaxis: Heparin 5000 units BID Teodoro (Son): [phone] would like to be kept in touch. He tries to come around 4pm also. Subjective Cough has improved. Her chest pain is about the same as it keeps getting exacerbated by the coughing. Her shortness of breath has improved as well. Otherwise, her energy is still low. Also have some diarrhea now. Reports no fevers/chills, abdominal pain, nausea, or vomiting. Physical Exam Constitutional: + cachectic; no acute distress Eyes: EOM intact bilaterally; no conjunctival abnormality ENMT: external ear and nose normal, oropharynx normal Neck: trachea midline, no thyromegaly normal visual inspection Respiratory: normal respiratory effort, lungs clear to auscultation + cough; no respiratory distress Auscultation: no rales and no wheezes Cardiovascular: RRR, no murmur, no edema Gastrointestinal (Abdomen): Inspection/Auscultation: abdomen normal to inspection; abdomen not distended Musculoskeletal: no cyanosis or clubbing, extremities motor strength 5/5 Skin: no rashes, warm and dry Neurologic: moves all extremities and awake Psychiatric: Orientation: alert, oriented to person and cooperative Results & Data Vital Signs (Past 12 Hours) Vital Signs Temp Pulse Resp BP Pulse Ox 02/28/19 07:33 36.4 C L 81 16 133/70 96 PG Care Time/CCT Total # of Minutes Spent Total Time Spent with Patient: Total time spent is greater than 50% in coordination of care (as documented) at patient's floor/unit and/or counseling patient:
[2019-02-28] MEDS: LEVOFLOXACIN/D5W 750 MG/150 ML BAG IV SCH (14:58)
[2019-02-28] MEDS: IBUPROFEN 200 MG TAB PO PRN ×2 (14:58→21:11)
[2019-02-28] MEDS: LIDOCAINE 5% 1 PATCH TD SCH (21:17)
[2019-03-01] MEDS: MoRPHine SULFATE 2 MG/ML CARP IV PRN ×4 (02:07→23:25)
[2019-03-01 07:19] LABS: Hematocrit (blood only) 30.9 % (37-47); Hemoglobin 10.7 g/dL (12.0-16.0); Mean Corpuscular Hemoglobin 35.8 pg (25-34); Mean Corpuscular Hgb Conc 34.6 g/dL (32-36); Mean Corpuscular Volume 103.3 fL (80-100); Mean Platelet Volume 8.8 fL (7.4-10.4); Platelet Count 181 K/uL (130-400); RDW Coefficient of Variation 14.5 % (11.5-14.5); RDW Standard Deviation 54.9 fL (36.4-46.3); Red Blood Count 2.99 M/uL (4.2-5.4); White Blood Count 7.14 K/uL (4.8-10.8)
[2019-03-01 07:55] LABS: BUN Creatinine Ratio 27.8 (10-20); Calcium 8.2 mg/dl (8.5-10.1); Creatinine Clr Calc Pharmacy 78.8 ml/min; Est GFR (African American) 125.5; Est GFR (Non-African American) 108.3; Magnesium 1.9 mg/dl (1.8-2.4); Potassium 4.6 mmol/L (3.5-5.1)
[2019-03-01 07:56] LABS: Phosphorus 3.6 mg/dl (2.5-4.9)
[2019-03-01] MEDS: FOLIC ACID 1 MG TAB PO SCH (08:48)
[2019-03-01] MEDS: IBUPROFEN 200 MG TAB PO PRN (08:48)
[2019-03-01] MEDS: CITALOPRAM 20 MG TAB PO SCH (08:49)
[2019-03-01] MEDS: NICOTINE 21 MG/24 HR TDSY TD SCH ×2 (08:49→08:51)
[2019-03-01] MEDS: THIAMINE HCL 100 MG TAB PO SCH (08:49)
[2019-03-01] MEDS: TIOTROPIUM BROMIDE 5 PUFF/90 MCG INH INH SCH (08:49)
[2019-03-01] MEDS: HEPARIN SOD 5,000 UNIT/0.5 ML VIAL SQ SCH ×2 (08:50→19:52)
[2019-03-01] MEDS: VITAMIN B COMPLEX TAB PO SCH (08:52)
--- NOTE | 2019-03-01 13:01 | Hospitalist Progress Note ---
Date of Service March 01, 2019 Assessment & Plan (1) SIADH (syndrome of inappropriate ADH production): * Hyponatremia -- sodium continues to be low, but improved to 127 today with 1200mL water restriction. * Due to SIADH, as her urine is more concentrated than her serum. Likely related to lung issues and poor solute intake (low protein intake related to alcohol, smoking, and chronic malnutrition). * Continue Boost shakes, encourage good nutrition. * --> Added mirtazapine 7.5mg QHS for appetite/depression (may be better choice instead of citalopram for depression moving forward) -- patient only eating small portions of each meal. Advised to continue protein supplements and to ask for food to be re-heated or order additional items. Son advised to bring in high fat, high protein snacks which he will do. The more solute she eats, the better she will be able to raise her sodium. * Given likely chronicity of this issue, tolvaptan not used as this doesn't seem like a viable long-term solution to her SIADH. In the end, she needs to eat more protein to help raise her nutritional status. * Continue to monitor * --Palliative consult today for goals of care moving forward -- appreciate input (2) Chronic obstructive pulmonary disease: * Chronic respiratory failure with hypoxia. On home O2. Now with mild acute exacerbation with increased sputum. Sputum culture on 02/23 grew Kluyvera ascorbata & Klebsiella oxytoca. * On 02/26, switched abx to levofloxacin for bacteria sensitivities and atypical coverage. * Improving. Finished steroids on 02/28. Continue levofloxacin until 03/02 for a 5-day course. * Continue pulmonary toilet with flutter valve-- may benefit from vibration vest in addition to guaifenesin to loosen mucus (3) Depression: * Meets depression diagnosis with depressed/sad thoughts, lack of energy, anhedonia, and psychomotor slowing. No suicidal ideation or passive wish per previous conversation on 02/23. Alcohol is certainly playing a role. * Started low-dose citalopram on 02/23 - QTc remains normal, but now switch to Remeron and dc citalopram especially given worsening SIADH * QTC 427ms on EKG today * Added mirtazapine as above (4) Choking episode: * Video-swallow on 02/23 showed esophageal dysmotility (likely from alcohol intake) and aspiration with thin liquids with straws. * Follow speech recs: * Soft, bite-sized, slipper thin liquids * Aspiration and reflux precautions: Fully upright for meals. Remain upright for 30 minutes after meals. Head up bed up at 30 degrees. * Alternate solids and liquids. * No straws * Crush medications and put in applesauce or pudding. * Dysphagia therapy (5) Squamous cell carcinoma of lung: * History of squamous cell s/p right pneumonectomy at [facility] --> follows with Fredy Thomas. * Last CT chest in 09/2018 was negative for recurrence. * Outpatient follow up (6) Alcoholism: * Patient reports she drinks about 3-4 cranberry/vodka drinks per day. Probably with a bit more than a shot per drink. No hx of withdrawal, seizures, DTs. * AWSS carried out initially. All 0s. Stopped. * Continue Folate but reduce to 1mg daily, continue thiamine, Vit B complex ; recommend this continue (perhaps in form of chewable) as outpatient to tolerate on daily basis. * check Vit B12 level given macrocystosis although this is likely secondary to EtOH use (7) Protein calorie malnutrition: * Severe protein-calorie malnutrition. Chronic in setting of lung ca, smoking, alcohol, poor PO intake. * Nutrition/dietary consult placed; boost products. Discussed with patient and family. Initiated mirtazapine as above, hopeful to increase appetite (8) DVT prophylaxis: * Heparin 5000 units BID * Teodoro (Son): [phone] would like to be kept in touch (at bedside today). He tries to come around 4pm also. Dispo: patient likely to remain hospitalized for additional 1-2 days, then discharge to [facility] vs other less intensive rehab at discharge Supervising Physician Co-Signing Physician Notes PA Supervision Note: I did not personally see or examine the patient today, but I verified all [place] points of GAMALIEL Winter's assessment and plan with the following exceptions/additions: None Subjective Patient doing well today. States her cough has improved, much less sputum production today with use of gaufenisen and flutter valve. She states she does believe she used what is described as vibration vest, but doesn't state she felt it helped. She does still have chest pain that she describes in her sternal area, and is reproducible with palpation. She does state that her sleep has improved slightly, but she still has no appetite. She does attribute some of her decreased appetite to not being able to take deep breaths secondary to pain following Heimlich maneuver performed on patient prior to admission. She thought initially she may have broken a rib, but states there were no such findings on imaging. Son Teodoro and significant other at bedside. Plan to discharge to [facility] when sodium improved and stable and patient has bed. Review of Systems Review of Systems: All systems reviewed & are unremarkable except as noted in HPI & below Constitutional: no fever and no chills Respiratory: + cough (improved) and + change in sputum (decreased) Cardiovascular: Additional Comments: pain with palpation Gastrointestinal: + diarrhea/loose stools; no abdominal pain, no nausea, no vomiting and no constipation Genitourinary: no dysuria and no hematuria Integumentary: no rash and no lesions Psychiatric: + depression insomnia Physical Exam Constitutional: + thin and + cachectic; no acute distress Eyes: + anicteric sclerae and PERRL Neck: trachea midline, no thyromegaly Respiratory: no labored breathing Auscultation: + diminished lung sounds; no rales and no wheezes Cardiovascular: RRR, no murmur, no edema Gastrointestinal (Abdomen): normal bowel sounds, soft, nontender, no hepatosplenomegaly Skin: no rashes, warm and dry Psychiatric: Orientation: alert and oriented x 3 Lymphatic: no cervical or axillary lymphadenopathy Results & Data Vital Signs (Past 12 Hours) Vital Signs Temp Pulse Resp BP Pulse Ox 03/01/19 07:47 36.6 C 77 18 117/62 97 Laboratory Results 03/01/19 03/01/19 Range/Units 06:48 06:48 WBC 7.14 (4.8-10.8) K/uL RBC 2.99 L (4.2-5.4) M/uL Hgb 10.7 L (12.0-16.0) g/dL Hct 30.9 L (37-47) % MCV 103.3 H (80-100) fL MCH 35.8 H (25-34) pg MCHC 34.6 (32-36) g/dL RDW Std Deviation 54.9 H (36.4-46.3) fL RDW Coeff of Niur 14.5 (11.5-14.5) % Plt Count 181 (130-400) K/uL MPV 8.8 (7.4-10.4) fL Sodium 127 L (136-145) mmol/L Potassium 4.6 (3.5-5.1) mmol/L Chloride 89 L (98-107) mmol/L Carbon Dioxide 37 H (21-32) mmol/L Anion Gap 1.0 L (3-11) BUN 12 (7-18) mg/dl Creatinine 0.42 L (0.6-1.2) mg/dl Est Cr Clr Drug Dosing 78.8 ml/min Est GFR ( Amer) 125.5 Est GFR (Non-Af Amer) 108.3 BUN/Creatinine Ratio 27.8 H (10-20) Glucose 74 (70-99) mg/dl Calcium 8.2 L (8.5-10.1) mg/dl Phosphorus 3.6 (2.5-4.9) mg/dl Magnesium 1.9 (1.8-2.4) mg/dl PG Care Time/CCT Total # of Minutes Spent Total Time Spent with Patient: Total time spent is greater than 50% in coordination of care (as documented) at patient's floor/unit and/or counseling patient:
[2019-03-01] MEDS: LEVOFLOXACIN/D5W 750 MG/150 ML BAG IV SCH (14:32)
--- NOTE | 2019-03-01 14:57 | Palliative Care Consultation ---
Date of Consultation March 01, 2019 Assessment & Plan (1) Palliative care encounter: This is a female who presented to the [facility] after having a choking episode and successful heimlich maneuver that was performed on her, overall general malaise, and electrolyte disturbance Additional PMH includes: COPD, squamous cell lung cancer s/p right pneumonectomy (no active disease on CT in 10/02), active smoker, depression, alcoholism, and severe protein caloric malnutrition. On admission the patient has been receiving treatment for SIADH, sodium level 127. Organisms were identified on sputum culture and she is receiving antibiotics for acute on chronic exacerbation of COPD. Per nursing the patient only is eating small amounts of her meal trays. She was evaluated by speech therapy regarding her dysphagia and choking. She is being treated for esophageal dysmotility and advised to take soft bite sized pieces. Ultimately, the current goal upon discharge is to go to [facility] for rehabilitation and a goal to return home where she lives with her significant other. [facility] to discuss goals of care. -I met with the patient in room 254-1. Her son, Saturnino was at the bedside. Son Teodoro has official POA. She has 3 sons. -Patient in no apparent distress when I entered the room; however, was very frail-appearing. She states that she has little to no appetite, with no associate nausea or vomiting. Just doesn't feel like eating. -Patient does have an infrequent productive cough with dark sputum. On Levaquin. -We discussed how she was feeling and discussed her current plan of moving to [facility] post discharge. -She stated on her own "I think it will be too much for me". We talked at length about other alternative options, including SNF and home hospice and what all avenues looked like. -She stated she was unaware that she had any other option besides [facility]. 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 -She stated she has an ultimate goal of returning home, which is a multiple story level home with about 10 stairs to enter. She lives with her significant other. -Two sons live local and one near [place]. -Currently, patient was listed as a Full Code. We talked at length about code status. Patient was clear she would not want resuscitated nor intubated. As the patient has had a pneumonectomy, the likelihood of her being extubated if intubated is low. Pt agreed she would not want aggressive measures taken, changed to DNR/DNI to reflect in the computer. -It is anticipated that overall, the patient will continue to decline in the setting of severe protein-calorie malnutrition as she has non-active lung ca, smoking, alcohol, and overall poor PO intake. -I talked with case management and the hospitalist at length who will discuss other rehabilitation options with a goal of returning home and an eventual transition to hospice. -POLST form provided to patient to review. Not completed and would be helpful prior to discharge. -PPS: 30% -Palliative care will follow through her hospitalization to continue evolution of goals of care conversations. (2) Chronic obstructive pulmonary disease: (3) Squamous cell carcinoma of lung: (4) Unspecified cirrhosis of liver: (5) Protein calorie malnutrition: (6) SIADH (syndrome of inappropriate ADH production): History of Present Illness Reason for Consultation: goals of care Requesting Physician: Anat Winter PA-C Attending Physician: Chiqui Rondon MD History of Present Illness This is a female who presented to the [facility] after having a choking episode and successful heimlich maneuver that was performed on her, overall general malaise, and electrolyte disturbance Additional PMH includes: COPD, squamous cell lung cancer s/p right pneumonectomy (no active disease on CT in 10/02), active smoker, depression, alcoholism, and severe protein caloric malnutrition. On admission the patient has been receiving treatment for SIADH, sodium level 127. Organisms were identified on sputum culture and she is receiving antibiotics for acute on chronic exacerbation of COPD. Per nursing the patient only is eating small amounts of her meal trays. She was evaluated by speech therapy regarding her dysphagia and choking. She is being treated for esophageal dysmotility and advised to take soft bite sized pieces. Ultimately, the current goal upon discharge is to go to [facility] for rehabilitation and a goal to return home where she lives with her significant other. Palliative Care was consulted to discuss goals of care. Please see A/P for further details. Thank you kindly for involving the palliative care team with this patient. We wi ll follow as needed. Allergies Allergy/AdvReac Type Severity Reaction Status Date / Time Bactrim Allergy Severe TONGUE Verified 10/29/17 10:17 SWELLING sulfamethoxazole Allergy Severe TONGUE Verified 02/22/19 21:47 SWELLING trimethoprim Allergy Severe TONGUE Verified 02/22/19 21:47 SWELLING aspirin Allergy Unknown SEVERE Verified 02/22/19 21:47 STOMACH CRAMPING Penicillins Allergy Unknown Unknown Verified 02/22/19 21:47 Home Medications Home Medications Medication Instructions Recorded Confirmed Type Oxygen Home #1 ea 09/26/18 09/26/18 History albuterol sulfate 90 mcg/actuation 2 puffs INH .COMPLEX PRN 09/26/18 02/22/19 History aerosol inhaler blood sugar diagnostic #10 ea 09/26/18 09/26/18 History dextrose 1 gram chewable tablet 1 gm PO .COMPLEX PRN 09/26/18 02/22/19 History ipratropium-albuterol 0.5 mg-3 See Rx Instructions INHALATION 09/26/18 02/22/19 History mg(2.5 mg base)/3 mL nebulization .COMPLEX PRN ml soln tiotropium bromide 18 mcg capsule 1 cap INHALATION DAILY #30 puffs 12/16/18 02/22/19 Rx with inhalation device Patient History Medical History (Updated 03/01/19 @ 14:57 by GIUSEPPE [place]) Abnormal CT scan, gastrointestinal tract (Acute) Bilateral kidney stones (Acute) Chronic obstructive pulmonary disease (Acute) Chronic reflux esophagitis (Acute) Dilation of thoracic aorta (Acute) Osteoporosis (Acute) Palliative care encounter Squamous cell carcinoma of lung (Acute) Unspecified cirrhosis of liver (Acute) Surgical History No pertinent past surgical history Family History Other No pertinent family history in first degree relatives Social History Preferred Language: Ivorian Communication Ability: Effective Yarn Conditioner Required: No Beliefs That Will Affect Care: None marital status: Life Partner Current Living Situation: Significant Other current occupational status: disabled Feels Safe at Home: Yes Safety Concerns: Feels Safe At This Time Smoking Status: Current every day smoker Tobacco Type: cigarettes ; Cigarettes Per Day: 20 ; Hx Alcohol Use: Yes Alcohol type: hard liquor Hx Substance Use: No Review of Systems Review of Systems: General: + weakness, + frail HEENT: + [place], (-) dizziness (-) visual changes CV: (-) chest pain, (-) palpitations Resp: (-) SOB (+) productive cough GI: (+) poor appetite (-) N/V/D Skin: (-) new rashes Psych: (+) insight (-) depression Physical Exam Constitutional: + ill appearing, + thin, comfortable and + lethargic Respiratory: normal respiratory effort, lungs clear to auscultation + cough Auscultation: + breath sounds absent (right lower lobe s/p pneumonectomy) and + diminished lung sounds Cardiovascular: RRR, no murmur, no edema Gastrointestinal (Abdomen): normal bowel sounds, soft, nontender, no hepatosplenomegaly Skin: + turgor decreased Psychiatric: A+Ox3, euthymic affect Results & Data Vital Signs (Past 12 Hours) Vital Signs Temp Pulse Resp BP Pulse Ox 03/01/19 07:47 36.6 C 77 18 117/62 97 PG Care Time/CCT Total # of Minutes Spent Total Time Spent with Patient: Total time spent is greater than 50% in coordination of care (as documented) at patient's floor/unit and/or counseling patient: 70 Time Spent Midlevel Total time spent 70 mintues with > 50% of that time spent assessing the patient, discussing goals of care and providing a POLST for reivew.
[2019-03-01] MEDS: MIRTAZAPINE TAB 15 MG TAB PO SCH (20:44)
[2019-03-01] MEDS: LIDOCAINE 5% 1 PATCH TD SCH (20:44)
[2019-03-02] MEDS: MoRPHine SULFATE 2 MG/ML CARP IV PRN ×3 (05:15→20:31)
[2019-03-02 07:13] LABS: Hematocrit (blood only) 31.5 % (37-47); Hemoglobin 10.5 g/dL (12.0-16.0); Mean Corpuscular Hemoglobin 35.8 pg (25-34); Mean Corpuscular Hgb Conc 33.3 g/dL (32-36); Mean Corpuscular Volume 107.5 fL (80-100); Mean Platelet Volume 8.5 fL (7.4-10.4); Platelet Count 198 K/uL (130-400); RDW Coefficient of Variation 14.9 % (11.5-14.5); RDW Standard Deviation 58.5 fL (36.4-46.3); Red Blood Count 2.93 M/uL (4.2-5.4); White Blood Count 10.08 K/uL (4.8-10.8)
[2019-03-02 07:40] LABS: Albumin Level 2.5 gm/dl (3.4-5.0); BUN Creatinine Ratio 26.4 (10-20); Calcium 8.7 mg/dl (8.5-10.1); Creatinine Clr Calc Pharmacy 75.2 ml/min; Est GFR (African American) 123.6; Est GFR (Non-African American) 106.7; Magnesium 1.4 mg/dl (1.8-2.4); Potassium 4.3 mmol/L (3.5-5.1)
[2019-03-02 07:43] LABS: Albumin Globulin Ratio 0.9 (0.9-2); Bilirubin,Total 0.3 mg/dl (0.2-1); Globulin 2.9 gm/dl (2.5-4.0); Total Protein 5.4 gm/dl (6.4-8.2)
[2019-03-02] MEDS: MAGNESIUM SULFATE / D5W 1 GM/100 ML BAG IV SCH ×3 (08:26→10:22)
[2019-03-02] MEDS: HEPARIN SOD 5,000 UNIT/0.5 ML VIAL SQ SCH ×2 (08:30→20:31)
[2019-03-02] MEDS: FOLIC ACID 1 MG TAB PO SCH (08:31)
[2019-03-02] MEDS: NICOTINE 21 MG/24 HR TDSY TD SCH (08:31)
[2019-03-02] MEDS: VITAMIN B COMPLEX TAB PO SCH (08:32)
[2019-03-02] MEDS: TIOTROPIUM BROMIDE 5 PUFF/90 MCG INH INH SCH (08:32)
[2019-03-02] MEDS: THIAMINE HCL 100 MG TAB PO SCH (08:33)
[2019-03-02] MEDS: CYANOCOBALAMIN 500 MCG TABLET (VITAMIN B-12) PO SCH (10:24)
--- NOTE | 2019-03-02 11:56 | XRay Report ---
TWO VIEW CHEST CLINICAL HISTORY: Dyspnea. Atypical chest pain. FINDINGS: PA and lateral chest radiographs are compared to study dated 02/26/2019 and correlated with chest CT dated 05/11/2014. The PA view is degraded by patient rotation. Again seen is postoperative c hange from right-sided pneumonectomy. There is compensatory hyperinflation of the left lung and right [place] shift of the mediastinum. The cardiac silhouette is not well evaluated. There is atherosclerotic calcification of the thoracic aorta. Fluid fills the right pleural space. There is a small left pleu ral effusion. The left lung is otherwise clear. There is no pneumothorax. The skeletal structures are osteopenic. Chronic deformity is noted in the right sided ribs. IMPRESSION: 1. Again seen is advanced emphysema with postoperative change from right-sided pneumonectomy. 2. There is a small left pleural effusion. The left lung is otherwise clear. Electronically signed by: Teodoro Carrion M.D. 03/02/2019 11:55 AM
--- NOTE | 2019-03-02 12:20 | Hospitalist Progress Note ---
Date of Service March 02, 2019 Assessment & Plan (1) SIADH (syndrome of inappropriate ADH production): * Hyponatremia -- sodium continues to be low, but improved to 127 today with 1200mL water restriction. * Due to SIADH, as her urine is more concentrated than her serum. Likely related to lung issues and poor solute intake (low protein intake related to alcohol, smoking, and chronic malnutrition). * Continue Boost shakes, encourage good nutrition. * --> Added mirtazapine 7.5mg QHS for appetite/depression on 03/02. Discontinued citalopram -- patient only eating small portions of each meal. Advised to continue protein supplements and to ask for food to be re-heated or order additional items. Son advised to bring in high fat, high protein snacks which he will do. The more solute she eats, the better she will be able to raise her sodium. * Given likely chronicity of this issue, tolvaptan not used as this doesn't seem like a viable long-term solution to her SIADH. In the end, she needs to eat more protein to help raise her nutritional status. * Continue to monitor * Palliative consult done last night -- patient now DNR/DNI -- family provided POLST form to review. Appreciate continued input. * --Updated son Saturnino today. All questions/concerns addressed. (2) Chronic obstructive pulmonary disease: * Chronic respiratory failure with hypoxia. On home O2 (counseling about risks of smoking while on oxygen). * Had mild exacerbation with increased sputum production which grew Kluyvera ascorbata & Klebsiella oxytoca --> switched to levofloxacin based on sensitives and atypical coverage on 02/26. Completed 5 day course today. * Improving. Finished steroids on 02/28. * LEVAQUIN completed today, total of 5 day course * Continue pulmonary toilet with flutter valve, guaifenesin/codeine syrup as needed * Initially switched to scheduled nebulizer treatments while awake, but SWITCHED to levalbuterol/atrovent due to tachycardia following albuterol nebulizer * Repeat CXR today with small LEFT sided pleural effusion -- possible third spacing with low protein vs fluid accumulation from trauma? Patient on baseline 2L and saturations remain 99% (3) Depression: * Meets depression diagnosis with depressed/sad thoughts, lack of energy, anhedonia, and psychomotor slowing. No suicidal ideation or passive wish per previous conversation on 02/23. Alcohol is certainly playing a role. * Started low-dose citalopram on 02/23 - QTc remains normal, but now switch to Remeron and dc citalopram especially given worsening SIADH * QTC 427ms on repeat EKG 03/01 (4) Choking episode: * Video-swallow on 02/23 showed esophageal dysmotility (likely from alcohol intake) and aspiration with thin liquids with straws. * Follow speech recs: * Soft, bite-sized, slipper thin liquids * Aspiration and reflux precautions: Fully upright for meals. Remain upright for 30 minutes after meals. Head up bed up at 30 degrees. * Alternate solids and liquids. * No straws * Crush medications and put in applesauce or pudding. * Dysphagia therapy (5) Squamous cell carcinoma of lung: * History of squamous cell s/p right pneumonectomy at [facility] --> follows with Fredy Thomas. * Last CT chest in 09/2018 was negative for recurrence. * Outpatient follow up (6) Alcoholism: * Patient reports she drinks about 3-4 cranberry/vodka drinks per day. Probably with a bit more than a shot per drink. No hx of withdrawal, seizures, DTs. * AWSS carried out initially. All 0s. Stopped. * Continue Folate but reduce to 1mg daily, continue thiamine, Vit B complex ; recommend this continue (perhaps in form of chewable) as outpatient to tolerate on daily basis. * check Vit B12 level given macrocystosis although this is likely secondary to EtOH use --> B12 found to be low normal at 265 --> given additional supplementation PO (7) Protein calorie malnutrition: * Severe protein-calorie malnutrition. Chronic in setting of lung ca, smoking, alcohol, poor PO intake. * Nutrition/dietary consult placed; boost products. Discussed with patient and family. Initiated mirtazapine as above, hopeful to increase appetite (8) Hypomagnesemia: * 1.3 on admission -- given 4gm IV replacement with improvement to 1.9 on 03/01 * Today, low again at 1.4-- given 3gm IV * Continue to monitor (9) B12 deficiency: B12 level low at 260 -started supplementation (10) DVT prophylaxis: * Heparin 5000 units BID * Teodoro (Son): [phone] would like to be kept in touch. He tries to come around 4pm also. --Spoke with son Saturnino today, who stated he would call brothers Teodoro and Robson to update after our conversation Dispo: patient likely to remain hospitalized until tomorrow as patient not comfortable with discharge today --> willing to go to [facility] after repeat discussion -- CM aware-- plan for discharge in AM Supervising Physician Co-Signing Physician Notes PA Supervision Note: I did not personally see or examine the patient today, but I verified all [place] points of GAMALIEL Winter's assessment and plan with the following exceptions/additions: None Subjective Patient evaluated this morning. Continues to have pain secondary to continued cough. Patient states her cough is no longer productive, but she continues to feel like there is something stuck that she needs to cough up. She states she has been using the flutter valve faithfully. She states she has not received any breathing treatments recently but was not aware she had to ask for them. She states her appetite continues to be poor but it is minimally improved. Patient states diarrhea has improved. Discussed palliative care meeting yesterday afternoon, and clarified that it was specifically for goals of care and what her termite helper goals are moving forward if anything were to happen. She is still agreeable to go to rehab, but believed intensive therapy at [facility] may be too much for her and she had wanted to look at different options with the ultimate goal to return home. Upon repeat conversation this afternoon after speaking with case management, [facility] able to increase therapy as tolerated. Patient agreeable for discharge but states she would be more comfortable with that tomorrow. Review of Systems Review of Systems: All systems reviewed & are unremarkable except as noted in HPI & below Constitutional: + fatigue; no fever and no chills Eyes: no diplopia and no problem reported Ear, Nose, Mouth, Throat: no sore throat and no hoarseness Respiratory: + cough (improved) and + change in sputum (no longer productive) Cardiovascular: Additional Comments: chest discomfort Gastrointestinal: no abdominal pain, no nausea, no vomiting and no diarrhea/loose stools Musculoskeletal: + body aches Integumentary: no rash and no lesions Physical Exam Constitutional: + thin and + cachectic; no acute distress Eyes: + anicteric sclerae and PERRL Neck: trachea midline, no thyromegaly Respiratory: no labored breathing Auscultation: + breath sounds absent (right base), + diminished lung sounds and + wheezes (end expiratory) Cardiovascular: RRR, no murmur, no edema Gastrointestinal (Abdomen): normal bowel sounds, soft, nontender, no hepatosplenomegaly Musculoskeletal: no cyanosis or clubbing, extremities motor strength 5/5 Skin: no rashes, warm and dry Psychiatric: Orientation: alert and oriented x 3 Lymphatic: no cervical or axillary lymphadenopathy Results & Data Vital Signs (Past 12 Hours) Vital Signs Temp Pulse Resp BP Pulse Ox 03/02/19 07:38 36.8 C 89 18 103/63 99 Laboratory Results 03/02/19 03/02/19 03/02/19 Range/Units 06:54 06:54 06:54 WBC 10.08 (4.8-10.8) K/uL RBC 2.93 L (4.2-5.4) M/uL Hgb 10.5 L (12.0-16.0) g/dL Hct 31.5 L (37-47) % MCV 107.5 H (80-100) fL MCH 35.8 H (25-34) pg MCHC 33.3 (32-36) g/dL RDW Std Deviation 58.5 H (36.4-46.3) fL RDW Coeff of Niru 14.9 H (11.5-14.5) % Plt Count 198 (130-400) K/uL MPV 8.5 (7.4-10.4) fL Sodium 133 L (136-145) mmol/L Potassium 4.3 (3.5-5.1) mmol/L Chloride 93 L (98-107) mmol/L Carbon Dioxide 39 H (21-32) mmol/L Anion Gap 1.0 L (3-11) BUN 12 (7-18) mg/dl Creatinine 0.44 L (0.6-1.2) mg/dl Est Cr Clr Drug Dosing 75.2 ml/min Est GFR ( Amer) 123.6 Est GFR (Non-Af Amer) 106.7 BUN/Creatinine Ratio 26.4 H (10-20) Glucose 80 (70-99) mg/dl Calcium 8.7 (8.5-10.1) mg/dl Magnesium 1.4 L (1.8-2.4) mg/dl Total Bilirubin 0.3 (0.2-1) mg/dl AST 21 (15-37) U/L ALT 16 (12-78) U/L Alkaline Phosphatase 69 (45-117) U/L Total Protein 5.4 L (6.4-8.2) gm/dl Albumin 2.5 L (3.4-5.0) gm/dl Globulin 2.9 (2.5-4.0) gm/dl Albumin/Globulin Ratio 0.9 (0.9-2) Vitamin B12 265 (211-911) pg/ml Diagnostic Findings TWO VIEW CHEST CLINICAL HISTORY: Dyspnea. Atypical chest pain. FINDINGS: PA and lateral chest radiographs are compared to study dated 04/29/2018 and correlated with chest CT dated 05/11/2014. The PA view is degraded by patient rotation. Again seen is postoperative change from right-sided pneumonectomy. There is compensatory hyperinflation of the left lung and rightward shift of the mediastinum. The cardiac silhouette is not well evaluated. There is atherosclerotic calcification of the thoracic aorta. Fluid fills the right pleural space. There is a small left pleural effusion. The left lung is otherwise clear. There is no pneumothorax. The skeletal structures are osteopenic. Chronic deformity is noted in the right sided ribs. IMPRESSION: 1. Again seen is advanced emphysema with postoperative change from right-sided pneumonectomy. 2. There is a small left pleural effusion. The left lung is otherwise clear. PG Care Time/CCT Total # of Minutes Spent Total Time Spent with Patient: Total time spent is greater than 50% in coord ination of care (as documented) at patient's floor/unit and/or counseling patient:
[2019-03-02] MEDS ORDERED: GUAIFENESIN/CODEINE 100MG/10MG 5ML UDC PO STA (12:21)
[2019-03-02] MEDS ORDERED: ALBUT/IPRATROP 3MG/0.5MG NEB 3 ML VIAL INH SCH (13:00)
[2019-03-02] MEDS: LEVOFLOXACIN/D5W 750 MG/150 ML BAG IV SCH (13:39)
[2019-03-02] MEDS ORDERED: XOPENEX/ATROVENT 0.63mg/0.5MG NEB COMBO NEB SCH (19:00)
[2019-03-02] MEDS: IPRATROPIUM BROMIDE NEB SOLN 0.02% 2.5 ML VIAL INH SCH (19:12)
[2019-03-02] MEDS: LEVALBUTEROL HCL 0.63 MG/3 ML NEB NEB SCH (19:12)
[2019-03-02] MEDS: MIRTAZAPINE TAB 15 MG TAB PO SCH (20:34)
[2019-03-02] MEDS: LIDOCAINE 5% 1 PATCH TD SCH (20:34)
[2019-03-03 06:01] LABS: Hematocrit (blood only) 30.7 % (37-47); Hemoglobin 10.4 g/dL (12.0-16.0); Mean Corpuscular Hemoglobin 36.6 pg (25-34); Mean Corpuscular Hgb Conc 33.9 g/dL (32-36); Mean Corpuscular Volume 108.1 fL (80-100); Mean Platelet Volume 8.6 fL (7.4-10.4); Platelet Count 192 K/uL (130-400); RDW Coefficient of Variation 15.2 % (11.5-14.5); RDW Standard Deviation 60.5 fL (36.4-46.3); Red Blood Count 2.84 M/uL (4.2-5.4); White Blood Count 10.43 K/uL (4.8-10.8)
[2019-03-03 06:26] LABS: INR 1.1 (0.9-1.1); Prothrombin Time 10.9 Seconds (9.0-12.0)
[2019-03-03 06:36] LABS: BUN Creatinine Ratio 18.3 (10-20); Calcium 8.5 mg/dl (8.5-10.1); Creatinine Clr Calc Pharmacy 67.6 ml/min; Est GFR (African American) 119.3; Potassium 4.5 mmol/L (3.5-5.1)
[2019-03-03] MEDS: IBUPROFEN 200 MG TAB PO PRN (07:02)
[2019-03-03] MEDS: LEVALBUTEROL HCL 0.63 MG/3 ML NEB NEB SCH (07:07)
[2019-03-03] MEDS: IPRATROPIUM BROMIDE NEB SOLN 0.02% 2.5 ML VIAL INH SCH (07:15)
[2019-03-03] MEDS: NICOTINE 21 MG/24 HR TDSY TD SCH (07:49)
[2019-03-03] MEDS: FOLIC ACID 1 MG TAB PO SCH (07:50)
[2019-03-03] MEDS: CYANOCOBALAMIN 500 MCG TABLET (VITAMIN B-12) PO SCH (07:50)
[2019-03-03] MEDS: THIAMINE HCL 100 MG TAB PO SCH (07:50)
[2019-03-03] MEDS: TIOTROPIUM BROMIDE 5 PUFF/90 MCG INH INH SCH (07:50)
[2019-03-03] MEDS: VITAMIN B COMPLEX TAB PO SCH (07:50)
[2019-03-03] MEDS: HEPARIN SOD 5,000 UNIT/0.5 ML VIAL SQ SCH (07:51)
[2019-03-03] MEDS ORDERED: MAGNESIUM OXIDE 400 MG TAB PO SCH (09:30)
[2019-03-03] MEDS: MAGNESIUM SULFATE / D5W 1 GM/100 ML BAG IV SCH ×2 (09:43→10:47)
--- NOTE | 2019-03-03 12:57 | Discharge Summary ---
Date of Service March 03, 2019 Admission HPI Per Admitting Provider Patient is a 63yo F PMH COPD, Lung cancer s/p R pneumonectomy, current smoker, alcoholic, who presents after choking on a pill earlier this evening. History provided in part by patient and by son who spoke with me outside the room. Her performed the heimlich maneuver successfully, and she complained of some acute pleuritic chest pain since then. Family is concerned about her well-being at home. Patient does admit that she continues to smoke 1ppd and does not eat much, noting a significant amount of weight loss in the past 2 months. She states this is in part related to her pneumonectomy procedure causing esophageal discomfort, but son also reports that she sits all day smoking cigarettes and drinking cranberry vodkas which also contributes to her not eating. Patient states she tried using boost supplements before but got tired of the taste and "they didn't help." Patient does wear oxygen daily and smokes with the oxygen on. She admits that she thinks a rehab facility might be appropriate, but family believe due to her malnutrition and cachexia and overall poor prognosis, home is not the best place for her and would prefer her to be placed in a mcc. Son states that this has been something they have tried to discuss with her for the past few years, but she has been very resistant to. Son reports their father was recently in a MVA with a broken sternum, and he doesn't think he is well enough to be performing the heimlich on her as needed. Admission Exam Per Admitting Provider Constitutional: + ill appearing (chronically), + thin and + cachectic; + not appropriately hydrated Appears older than stated age Eyes: PERRL, conjunctivae normal, anicteric sclerae ENMT: Mouth: + oral mucosal abnormality (dry MM) Neck: normal visual inspection Respiratory: normal respiratory effort Auscultation: + diminished lung sounds (s/p R lung pneumonectomy) and + rhonchi Cardiovascular: RRR, no murmur, no edema Gastrointestinal (Abdomen): normal bowel sounds, soft, nontender, no hepatosplenomegaly Musculoskeletal: Extremities: + abnormal strength; + abnormal strength (4/5 throughout) Skin: no rashes, warm and dry Neurologic: PERRL, EOMI, accommodation nl, no face palsy, no dysarthria Psychiatric: A+Ox3, euthymic affect Principal Diagnosis SIADH, COPD exacerbation, Dysphagia, Malnourishment Discharge Exam Constitutional + thin and + cachectic; no acute distress Eyes + anicteric sclerae and PERRL Neck trachea midline, no thyromegaly Respiratory normal respiratory effort; no labored breathing Auscultation: + diminished lung sounds and + crackles (bibasilar crackles); no rales and no wheezes Cardiovascular RRR, no murmur, no edema Gastrointestinal (Abdomen) normal bowel sounds, soft, nontender, no hepatosplenomegaly Musculoskeletal no cyanosis or clubbing, extremities motor strength 5/5 Skin no rashes, warm and dry Psychiatric Orientation: alert and oriented x 3 Lymphatic no cervical or axillary lymphadenopathy Discharge Data Allergies Allergy/AdvReac Type Severity Reaction Status Date / Time Bactrim Allergy Severe TONGUE Verified 10/29/17 10:17 SWELLING sulfamethoxazole Allergy Severe TONGUE Verified 02/22/19 21:47 SWELLING trimethoprim Allergy Severe TONGUE Verified 02/22/19 21:47 SWELLING aspirin Allergy Unknown SEVERE Verified 02/22/19 21:47 STOMACH CRAMPING Penicillins Allergy Unknown Unknown Verified 02/22/19 21:47 Consultations 02/22/19 21:21 ED Decision to Admit Stat 02/22/19 23:51 Consult Case Management - Discharge Planning Routine 03/01/19 15:48 Consult Palliative Care Routine Ordered Studies 02/23/19 11:15 FL video swallow Routine 02/26 CXR 03/02 CXR Hospital Course (1) SIADH (syndrome of inappropriate ADH production): * Patient presented with episode of choking/heimlich who was found to have mild exacerbation of COPD (chronic respitatory failure with hypoxia, on home O2) with sputum positive for Klebsiella, as well as SIADH (urine more concentrated than serum) secondary to dysphagia/alcohol use. Hyponatremia with sodium as low as 126. Improved to 134 prior to discharge. 95% on home 2L. * Treated with levofloxacin for pulmonary coverage and completed 5 day course. Was switched to levalbuterol from albuterol nebulizers due to tachycardia. Patient with much improvement following transition. Recommended follow up with Dr. Lucero for possible additional agents for COPD maintenance. * Hospital course complicated by malnutrition -- encouraged boost shakes, increased protein, abstinance from etoh. * Mirtazapine added for appetite/depression. * Palliative consult placed while inpatient for goals of care, patient with wishes to be DNR/DNI (2) Chronic obstructive pulmonary disease: * Chronic respiratory failure with hypoxia. On home O2 (counseling about risks of smoking while on oxygen). * Levaquin to complete 5 day course. Sputum ++ for Klebsiella oxytoca, kluyvera ascorbata. Given steroids, nebulizer treatments. flutter valve, incentive s pirometer, guaifenesin/codeine syrup with improvement of symptoms prior to discharge. * Repeat CXR on 03/02 with small LEFT sided pleural effusion -- possible third spacing with low protein vs fluid accumulation from trauma as patient continued to be 95% on baseline 2L prior to discharge (3) Depression: * Met depression diagnosis with depressed/sad thoughts, lack of energy, anhedonia, and psychomotor slowing. No suicidal ideation or passive wish. Alcohol certainly playing a role. * Started low-dose citalopram on 02/23 - QTc remained normal, however switched to Remeron and dc citalopram given worsening SIADH while inpatient. Repeat EKG with WTC 427ms (4) Choking episode: * Video-swallow on 02/23 showed esophageal dysmotility (likely from alcohol intake) and aspiration with thin liquids with straws. * Follow speech recs: * Soft, bite-sized, slipper thin liquids * Aspiration and reflux precautions: Fully upright for meals. Remain upright for 30 minutes after meals. Head up bed up at 30 degrees. * Alternate solids and liquids. * No straws * Crush medications and put in applesauce or pudding. * Dysphagia therapy (5) Squamous cell carcinoma of lung: * History of squamous cell s/p right pneumonectomy at [facility] --> follows with Fredy Thomas. * Last CT chest in 09/2018 was negative for recurrence. * Outpatient follow up (6) Alcoholism: * Patient reported she drank about 3-4 cranberry/vodka drinks per day. Probably with a bit more than a shot per drink. No hx of withdrawal, seizures, DTs.AWSS carried out initially. All 0s. Stopped. * Continued Folate but reduce to 1mg daily, thiamine, Vit B complex ; recommend this continue as outpatient * B12 found to be low normal at 265, likley secondary to etoh --> continue PO supplementation (7) Protein calorie malnutrition: * Severe protein-calorie malnutrition. Chronic in setting of lung ca, smoking, alcohol, poor PO intake. * Nutrition/dietary consult placed; boost products. Discussed with patient and family. Initiated mirtazapine as above, hopeful to increase appetite (8) Hypomagnesemia: * 1.3 on admission -- given 4gm IV replacement with improvement to 1.9 on 03/01. * 1.5 on day of discharge --- given 2gm IV and additional PO supplementation -- recommend repeat lab testing with BMP (9) B12 deficiency: * B12 level low at 260. Supplementation as above (10) DVT prophylaxis: * Heparin 5000 units BID while inpatient Patient discharged to [facility] for acute skilled rehab. Total Time Total Time Spent Total Time Spent (In Minutes): 50 Discharge Plan Discharge Items Patient Disposition: Transfer Inpatient Rehab Fac Reason For Visit: MALNOURISHMENT, ALCOHOLIC, ELECTROLYTE Discharge Diagnosis: Electrolyte abnormality -- Low SODIUM Malnourishment Condition on Discharge: Fair Goals: You have been hospitalized for an acute medical problem. During your stay at [facility], we have made an effort to correct the problem that brought you to the hospital while keeping you as comfortable as possible. Medications were used to bring your condition under control and your discharge instructions will include directions for any medications you should take after leaving the hospital. Please make sure you see your Primary Care Provider as part of your follow up plan. Activity: Resume your previous activity Non-emergency contact: Primary Care Provider Call non-emergency contact if: you have any medication questions and your pain is not controlled Follow-up/Referrals: Mark Lucero MD [Physician] - 04/01/19 9:00 am (Please, follow up with Dr. Lucero on April 01 at 9:00 am. *If you need to change this appointment, call the office at [phone].) Temitope Shaikh MD [Primary Care Provider] - Diet: Regular Fluids: 1200ml (5 cups) Ambulatory Orders: Basic Metabolic Panel (Routine) Timeframe: 2 Days Location: Determined by Patient Ordered By: Anat Hernandez Attending Provider Instructions: While in the hospital, you were treated for an infection in your lungs as well as a flare up of your COPD. You completed a course of antibiotics, LEVAQUIN, which was finished yesterday. --A prescription has been sent for nebulizer treatments (Levalbuterol/Ipratropium) that you may continue to use every six hours while awake. This is similar to what you use at home, but has less effect on raising your heart rate. --You have also been sent a prescription for Tessalon pearls as well a cough syrup with pain medication that you may use as needed for the next several days. You should also continue to use the flutter valve as instructed to help clear mucus. --A follow up appointment has been made April [address] Lucero to follow up on your condition and to discuss any addition of maintenance medications for your breathing. You have been started on supplements for B12, Magnesium, Folate, and Thiamine. It is recommended that you continue these medications for at least the next month and have repeat labs drawn. You have also been given a prescription for mirtazapine (Remeron) 7.5mg daily, at night. This should help with your sleep as well as increase your appetite and aid in depression. It is important to continue boost supplements and high protein snacks to improve your nutritional status. With that being said, it is also highly recommended that you avoid/restrict alcohol intake, which also worsens your sodium level and overall nutrition. --> Please continue a 1,200mL FLUID RESTRICTION daily until your sodium remains stable. You should have repeat lab work in the next two days to continue to monitor your electrolytes including Magnesium. It is recommended that you abstain from smoking, as it is a hazard with your supplemental oxygen as well detriment to your health. You have been given a prescription for nicotine patches to help with smoking cessation. Please follow up with your primary care provider in the next 3-5 days after discharge. Please return to the emergency room with any worsening shortness of breath, fever, increased sputum production or for any symptoms that are concerning for you. It has been a pleasure being a part of the care team taking care of you during your hospital stay. Take care! Pending Studies at Discharge: No Stand-Alone Forms: My [facility] Skilled Items Patient informed of condition?: Yes DNR: Yes Discharge Level of Care: Acute rehab Communicable Disease: No Discharge Prognosis: Improving Lines: None Urinary Catheter: No Medications and DC Order Prescriptions: New nicotine [Nicoderm CQ] 21 mg/24 hr Patch 24 Hour 21 mg transdermal QAM Qty: 7 RF: 0 mirtazapine 15 mg Tablet 7.5 mg PO HS Qty: 30 RF: 0 ipratropium bromide 0.02 % Solution 0.5 mg inhalation Q6RWA Qty: 62.5 RF: 0 thiamine HCl (vitamin B1) [Vitamin B-1] 100 mg Tablet 100 mg PO QAM Qty: 30 RF: 0 cyanocobalamin (vitamin B-12) 500 mcg Tablet 500 mcg PO QAM 30 Days Qty: 30 RF: 0 lidocaine 5 % Adhesive Patch,Medicated 1 patch transdermal QPM Qty: 1 RF: 0 folic acid 1 mg Tablet 1 mg PO QAM Qty: 30 RF: 0 Continued Dex4 Glucose Bits 1 gram tablet,chewable 1 gm PO .COMPLEX PRN (Reason: low bsg) RF: 0 (DME) OneTouch Ultra Blue Test Strip strip See Dose Instructions .ROUTE .MEDSUPPLY Qty: 10 RF: 0 (DME) Oxygen Home Liters Per Minute See Dose Instructions .ROUTE .MEDSUPPLY Qty: 1 RF: 0 albuterol sulfate [ProAir HFA] 90 mcg/actuation HFA aerosol inhaler 2 puffs INH .COMPLEX PRN (Reason: Shortness Of Breath Or Wheezing) RF: 0 Spiriva with HandiHaler 18 mcg capsule, w/inhalation device 1 cap inhalation DAILY Qty: 30 RF: 11 Discontinued ipratropium-albuterol 0.5 mg-3 mg(2.5 mg base)/3 mL solution for nebulization See Rx Instructions inhalation .COMPLEX PRN (Reason: Shortness Of Breath Or Wheezing) RF: 0 No Action magnesium oxide 400 mg (241.3 mg magnesium) tablet 400 mg PO QID 30 Days Qty: 120 RF: 0 ibuprofen 200 mg tablet 400 mg PO Q6H Qty: 120 RF: 2 Discharge Orders: Discharge Order (Routine); Ordered 03/03/19 Ordered By: Chiqui Rondon Admission Data Admit Date/Time: 02/22/19 22:31 Attending Provider: Chiqui Rondon Admit Provider: Anat Elam Primary Care Provider: Temitope Shaikh Other Providers: Khang Alarcon ; Kwasi Giordano ; [facility] ; Latoya Chavez Other Interventions: Discharge Summary Assessment (RN) Last Done: 03/03/19 12:14 DC Date/Time DO NOT enter until pt leaves facility: 03/03/19 12:45 Supervising Physician Co-Signing Physician Notes PA Supervision Note: I personally saw and examined the patient. I verified all [place] points and agree with GAMALIEL Winter with the following exceptions and/or additions: Improved, not SOB, ready for dc. VSS thin,cachectic, NAD RRR no mgr diminished BS throughout,unlabored breathing Abd soft NT ND Ext no edema 63 yo female here with choking episode and COPD exacerbation. Continue plan as above, stable for dc
== END 2019-03-03 12:45 | DRG 190 ==
LOC: ED 19:10 → SUATTDRO 22:31 → 2W 22:31

== ENCOUNTER 2020-05-22 20:25 | Inpatient (IN) ==
[2020-05-22 21:59] LABS: Basophils # (auto) 0.01 K/uL (0-0.2); Basophils % (auto) 0.1 %; Hematocrit (blood only) 36.7 % (37-47); Hemoglobin 12.2 g/dL (12.0-16.0); Immature Granulocytes # (auto) 0.04 K/uL (0.00-0.02); Immature Granulocytes % (auto) 0.2 %; Lymphocytes # (auto) 0.46 K/uL (1.2-3.4); Lymphocytes % (auto) 2.6 %; Mean Corpuscular Hemoglobin 34.1 pg (25-34); Mean Corpuscular Hgb Conc 33.2 g/dL (32-36); Mean Corpuscular Volume 102.5 fL (80-100); Mean Platelet Volume 9.8 fL (7.4-10.4); Monocytes # (auto) 1.45 K/uL (0.11-0.59); Monocytes % (auto) 8.2 %; Neutrophils # (auto) 15.65 K/uL (1.4-6.5); Neutrophils % (auto) 88.9 %; Platelet Count 159 K/uL (130-400); RDW Coefficient of Variation 12.9 % (11.5-14.5); RDW Standard Deviation 48.6 fL (36.4-46.3); Red Blood Count 3.58 M/uL (4.2-5.4); White Blood Count 17.61 K/uL (4.8-10.8)
[2020-05-22 22:14] LABS: INR 1.1 (0.9-1.1); Partial Thromboplastin Ratio 1.1; Partial Thromboplastin Time 27.8 Seconds (21.0-31.0); Prothrombin Time 11.1 Seconds (9.0-12.0)
[2020-05-22 22:21] LABS: Alanine Aminotransferase 12 U/L (12-78); Albumin Level 3.2 gm/dl (3.4-5.0); Aspartate Aminotransferase 13 U/L (15-37); BUN Creatinine Ratio 14.2 (10-20); Blood Urea Nitrogen 8 mg/dl (7-18); Calcium 9.2 mg/dl (8.5-10.1); Carbon Dioxide 28 mmol/L (21-32); Chloride 100 mmol/L (98-107); Creatinine Clr Calc Pharmacy 59.8 ml/min; Est GFR (African American) 115.5; Est GFR (Non-African American) 99.6; Glucose 116 mg/dl (70-99); Magnesium 1.1 mg/dl (1.8-2.4); Potassium 3.8 mmol/L (3.5-5.1); Sodium 134 mmol/L (136-145)
[2020-05-22 22:26] LABS: Albumin Globulin Ratio 1.1 (0.9-2); Alkaline Phosphatase 87 U/L (45-117); Bilirubin,Total 0.6 mg/dl (0.2-1); Total Protein 6.2 gm/dl (6.4-8.2); Troponin I < 0.015 ng/ml (0-0.045)
[2020-05-22 22:36] LABS: Influenza A virus by PCR Negative (Neg); Influenza B virus by PCR Negative (Neg); RSV by PCR Negative (Neg); SARS CoV2 RNA(COVID-19) InHosp NEGATIVE (Negative)
[2020-05-22 22:52] LABS: Base Excess VBG 5.6 mEq/L; Oxygen Saturation VBG 66.8 %; pH VBG 7.39 (7.36-7.41)
[2020-05-22] MEDS ORDERED: OPTIRAY 320 125ml IV ONE (22:53)
[2020-05-22] MEDS ORDERED: VANCOMYCIN CONSULT ACTIVE PRN (23:28)
[2020-05-22] MEDS ORDERED: VANCOMYCIN HCL 750 MG in SODIUM CHLORIDE 0.9% 500 ML IV ONE (23:28)
[2020-05-22] MEDS ORDERED: AZTREONAM 1,000 MG in DEXTROSE 5% 100 ML IV STA (23:28)
[2020-05-22] MEDS ORDERED: AZITHROMYCIN 500 MG in DEXTROSE 5% 250 ML IV STA (23:28)
[2020-05-22] MEDS ORDERED: VANCOMYCIN HCL 750 MG in SODIUM CHLORIDE 0.9% 250 ML IV ONE (23:45)
[2020-05-22] MEDS: MAGNESIUM SULFATE / D5W 1 GM/100 ML BAG IV SCH (23:50)
--- NOTE | 2020-05-22 23:58 | History & Physical Report ---
Date of Service May 22, 2020 Assessment & Plan (1) Acute exacerbation of chronic obstructive pulmonary disease: Acute COPD exacerbation/pneumonia/squamous cell lung cancer/status post right lung lobectomy- Duonebs every 4 hours while awake and every 2 hours when necessary. Vancomycin IV, aztreonam IV and azithromycin IV. Methylprednisolone 40 mg IV every 8 hours Continue inhaler fluticasone/Vilanterol Guaifenesin extended release 60 mg p.o. every 12 hours Nasal cannula oxygen, titrate to keep pulse ox around 92-94% Advised tobacco cessation Present on Admission?: Yes (2) Pneumonia: See above Present on Admission?: Yes (3) S/P lobectomy of lung: See above Present on Admission?: Yes (4) Squamous cell carcinoma of lung: See above Present on Admission?: Yes (5) Depression: Continue mirtazapine Present on Admission?: Yes (6) Hypomagnesemia: Magnesium 1.1 upon admission. IV replacement ordered in the ED Repeat laboratories in a.m. Present on Admission?: Yes History of Present Illness Chief Complaint: The patient presents to the emergency department with complaint of shortness of breath that developed shortly after waking this morning. Primary Care Provider: Temitope Shaikh MD The patient is a 64-year-old female with a past medical history including squamous cell lung cancer, status post right lung lobectomy, COPD, acute bronchitis, thiamine deficiency, cerumen impaction, vitamin B12 deficiency, depression, dilation of thoracic aorta, chronic reflux esophagitis, bilateral kidney stones and history of respiratory distress. The patient presents to the emergency department with acute onset of shortness of breath this morning that has worsened throughout the day. She typically does have mucus that she brings up, without significant difference today. She denies any recent travels or sick exposures. Her COVID-19 test was negative in the ED. Allergies Allergy/AdvReac Type Severity Reaction Status Date / Time Bactrim Allergy Severe TONGUE Verified 10/29/17 10:17 SWELLING sulfamethoxazole Allergy Severe TONGUE Verified 05/22/20 22:18 SWELLING trimethoprim Allergy Severe TONGUE Verified 05/22/20 22:18 SWELLING aspirin Allergy Unknown SEVERE Verified 05/22/20 22:18 STOMACH CRAMPING Penicillins Allergy Unknown Unknown Verified 05/22/20 22:18 Home Medications Medication Instructions Recorded Confirmed Type mirtazapine 15 mg tablet 7.5 mg PO HS #30 tab 10/06/19 05/22/20 Rx budesonide-formoterol HFA 160 2 puff INHALATION BID #10.2 g 03/24/20 05/22/20 Rx mcg-4.5 mcg/actuation aerosol inhaler tiotropium bromide 18 mcg capsule 1 cap INH DAILY #30 puffs 05/17/20 05/22/20 Rx with inhalation device albuterol sulfate 2.5 mg INH QID PRN 05/22/20 05/22/20 History albuterol sulfate [ProAir HFA] 2 puffs INH .Q4-6HRS PRN 05/22/20 05/22/20 History cholecalciferol (vitamin D3) 25 mcg PO DAILY 05/22/20 05/22/20 History [Vitamin D3] mfdjqoey-xfex-SD-calcium-mins 1 tab PO DAILY 05/22/20 05/22/20 History [Women's One Daily] Past Med/Surg History Medical History (Updated 05/23/20 @ 01:37 by Philippe Esparza) Abnormal CT scan, gastrointestinal tract Alcoholism B12 deficiency Bilateral kidney stones Chronic obstructive pulmonary disease Chronic reflux esophagitis Chronic respiratory failure Dilation of thoracic aorta Influenza Lung cancer Osteoporosis Palliative care encounter Pneumonia Protein calorie malnutrition SIADH (syndrome of inappropriate ADH production) Squamous cell carcinoma of lung Unspecified cirrhosis of liver Surgical History (Updated 05/23/20 @ 01:28 by Philippe Esparza) S/P lobectomy of lung Family History Father Aortic aneurysm Hypertension Mother COPD (chronic obstructive pulmonary disease) CHF (congestive heart failure) Osteoporosis Renal failure Grandmother Diabetes Grandfather Skin cancer Other Myocardial infarction No pertinent family history in first degree relatives Denies family history of Ovarian cancer Prostate cancer Breast cancer Colorectal cancer Social History Smoking Status: Current every day smoker Tobacco Type: Cigarettes Cigarettes Per Day: 8; Second Hand Exposure: Yes; Do You Dip or Chew Tobacco: No; Hx Alcohol Use: Yes Alcohol type: hard liquor Alcohol Intake Frequency: 2-3 x/Week Alcohol Intake Frequency Comment: once a week Hx Substance Use: No Preferred Language: Divehi Communication Ability: Effective Director Compensation Required: No Beliefs That Will Affect Care: None marital status: Life Partner Current Living Situation: Significant Other current occupational status: disabled How many Children do You have: 3 Other Information That Helps Us Care for You: No Feels Safe at Home: Yes Safety Concerns: Feels Safe At This Time Dental Care, Regularly: No Physical Activity Frequency: Does not Exercise Seatbelt Use: always Sunscreen Use: No Assistive Devices: Glasses Review of Systems Review of Systems: The patient denies palpitations, lower extremity swelling, sore throat, fevers, chills, sweats, nausea, vomiting, diarrhea , constipation, abdominal pain, pelvic pain, blood in urine or stool, dysuria, urinary frequency or urgency, headache, memory loss, loss of consciousness, rash, abnormal bruising or bleeding, imbalance, focal weakness, numbness or tingling in arms or legs, neck pain, or night sweats. The review of systems is otherwise negative other than for that already noted above, and at least 10 systems have been reviewed. Physical Exam Physical Exam: The patient is awake, alert and oriented 3, appears emaciated, normocephalic and atraumatic, lying in bed and in no acute distress. HEENT--PERRL, EOMI, mucous membranes and oropharynx dry. Neck--supple. No JVD. No bruits. Thyroid normal, trachea midline, no adenopathy. Heart--normal S1 and S2. No murmurs, rubs or gallops. Lungs--absent breath sounds on the right side. Few coarse breath sounds on the left, overall diminished Abdomen--normal bowel sounds and soft. Nontender. Nondistended. Extremities--no cyanosis or clubbing. No edema. Dermatologic--normal skin turgor, normal color, no abnormal lymph nodes, no rash. Neurologic--cranial nerves II through XII grossly intact. Rheumatologic--normal range of motion. Psychiatric--normal affect. Results & Data Results & Data ([facility]) Vital Signs (Past 12 Hours) Vital Signs Temp Pulse Resp BP Pulse Ox 05/22/20 23:00 103 H 24 105/59 L 99 05/22/20 22:00 109 H 24 105/56 L 96 05/22/20 21:57 97 05/22/20 21:44 108 H 24 112/57 L 97 05/22/20 21:26 22 96 05/22/20 20:35 99.1 F 117 H 22 112/61 96 Laboratory Results Laboratory Results WBC 17.61 K/uL (4.8-10.8) H 05/22/20 21:37 RBC 3.58 M/uL (4.2-5.4) L 05/22/20 21:37 Hgb 12.2 g/dL (12.0-16.0) 05/22/20 21:37 Hct 36.7 % (37-47) L 05/22/20 21:37 MCV 102.5 fL (80-100) H 05/22/20 21:37 MCH 34.1 pg (25-34) H 05/22/20 21:37 MCHC 33.2 g/dL (32-36) 05/22/20 21:37 RDW Std Deviation 48.6 fL (36.4-46.3) H 05/22/20 21:37 RDW Coeff of Niru 12.9 % (11.5-14.5) 05/22/20 21:37 Plt Count 159 K/uL (130-400) 05/22/20 21:37 MPV 9.8 fL (7.4-10.4) 05/22/20 21:37 Immature Gran % (Auto) 0.2 % 05/22/20 21:37 Neut % (Auto) 88.9 % 05/22/20 21:37 Lymph % (Auto) 2.6 % 05/22/20 21:37 Tillman % (Auto) 8.2 % 05/22/20 21:37 Eos % (Auto) 0.0 % 05/22/20 21:37 Baso % (Auto) 0.1 % 05/22/20 21:37 Neut # (Auto) 15.65 K/uL (1.4-6.5) H 05/22/20 21:37 Lymph # (Auto) 0.46 K/uL (1.2-3.4) L 05/22/20 21:37 Tillman # (Auto) 1.45 K/uL (0.11-0.59) H 05/22/20 21:37 Eos # (Auto) 0.00 K/uL (0-0.5) 05/22/20 21:37 Baso # (Auto) 0.01 K/uL (0-0.2) 05/22/20 21:37 Immature Gran # (Auto) 0.04 K/uL (0.00-0.02) H 05/22/20 21:37 PT 11.1 Seconds (9.0-12.0) 05/22/20 21:37 INR 1.1 (0.9-1.1) 05/22/20 21:37 APTT 27.8 Seconds (21.0-31.0) 05/22/20 21:37 PTT Ratio 1.1 05/22/20 21:37 VBG pH 7.39 (7.36-7.41) 05/22/20 22:37 VBG pCO2 54 mmHg (38-50) H 05/22/20 22:37 VBG pO2 35 mmHg 05/22/20 22:37 VBG HCO3 32 mmol/L 05/22/20 22:37 VBG O2 Saturation 66.8 % 05/22/20 22:37 VBG Base Excess 5.6 mEq/L 05/22/20 22:37 Barometric Pressure 740.4 mm/Hg 05/22/20 22:37 Sodium 134 mmol/L (136-145) L 05/22/20 21:37 Potassium 3.8 mmol/L (3.5-5.1) 05/22/20 21:37 Chloride 100 mmol/L (98-107) 05/22/20 21:37 Carbon Dioxide 28 mmol/L (21-32) 05/22/20 21:37 Anion Gap 7.0 (3-11) 05/22/20 21:37 BUN 8 mg/dl (7-18) 05/22/20 21:37 Creatinine 0.53 mg/dl (0.6-1.2) L 05/22/20 21:37 Est Cr Clr Drug Dosing 59.8 ml/min 05/22/20 21:37 Est GFR ( Amer) 115.5 05/22/20 21:37 Est GFR (Non-Af Amer) 99.6 05/22/20 21:37 BUN/Creatinine Ratio 14.2 (10-20) 05/22/20 21:37 Glucose 116 mg/dl (70-99) H 05/22/20 21:37 Lactate 1.1 mmol/L (0.4-2.0) 05/22/20 22:37 Calcium 9.2 mg/dl (8.5-10.1) 05/22/20 21:37 Magnesium 1.1 mg/dl (1.8-2.4) L 05/22/20 21:37 Total Bilirubin 0.6 mg/dl (0.2-1) 05/22/20 21:37 AST 13 U/L (15-37) L 05/22/20 21:37 ALT 12 U/L (12-78) 05/22/20 21:37 Alkaline Phosphatase 87 U/L (45-117) 05/22/20 21:37 Ammonia 11.7 umol/L (11-32) 05/22/20 22:37 Troponin I < 0.015 ng/ml (0-0.045) 05/22/20 21:37 Total Protein 6.2 gm/dl (6.4-8.2) L 05/22/20 21:37 Albumin 3.2 gm/dl (3.4-5.0) L 05/22/20 21:37 Globulin 3.0 gm/dl (2.5-4.0) 05/22/20 21:37 Albumin/Globulin Ratio 1.1 (0.9-2) 05/22/20 21:37 COVID-19 Eval Order CovFluRsv at [facility] 05/22/20 21:37 SARS-CoV-2 (PCR) NEGATIVE (Negative) 05/22/20 21:37 Influenza Type A (PCR) Negative (Neg) 05/22/20 21:37 Influenza Type B (PCR) Negative (Neg) 05/22/20 21:37 RSV (RT-PCR) Negative (Neg) 05/22/20 21:37 Diagnostic Findings [facility] Patient: PRISCILLA WIGGINS (Female) : 53 Status: ER Date: 05/22/20 22:58 Room #: History: short of breath 118 ml optiray 320 covid pui Slices: 752 Priors: Tech: Olimpia Hough @ [phone] Exams: CTA CHEST Contrast: IV Amt: 118 ml optiray 320 Accession Numbers: [id number] Preliminary Findings Only See Final Report For Complete Findings CTA CHEST: Impression: Left lower lobe consolidation may represent pneumonia in the appropriate clinical scenario. Postsurgical change related to prior resection of the right lung with similar appearance of fluid collection in the right pleural cavity. No evidence of pulmonary embolism. Similar appearance of opacity in the left upper lobe compared to CT chest 09/15/2018. Severe emphysematous change of the left lung. Ectasia of the ascending aorta measuring up to 3.7 cm. Radiologist: Norris Andrews MD Study ready at 23:02 and initial results transmitted at 23:19 *This report constitutes a preliminary interpretation only. Non-acute findings felt to be unrelated to the clinical presentation may not be discussed in this report. The study will be interpreted and a final report will be generated by the local Radiologist the following shift. To reach the hospital radiology department call [phone]. If a discrepancy is found between the preliminary and final interpretations of this study, please notify us via our Client Portal at [email or web address] [email or web address].You can also fax this report with a description of the discrepancy, or include the final report, to our daytime fax number [phone].If faxing, please indicate the severity of discrepancy using one of the following categories: [ ] 1 - Agree/Informational [ ] 2 - Unlikely to Affect Management [ ] 3 - Possible Eventual Change of Management [ ] 4 - Probable Immediate Change of Management For all other patient related information, please fax us at [phone]. [id number] Code Status & VTE Plan Code Status Full code VTE Prophylaxis Plan VTE Prophylaxis will be ordered: Yes PG Care Time/CCT Total # of Minutes Spent Total Time Spent with Patient: Total time spent is greater than 50% in coordination of care (as documented) at patient's floor/unit and/or counseling patient: Coding Level of Care Code 04572 Initial Inpt Care Lvl 3 Diagnoses Acute exacerbation of chronic obstructive pulmonary disease J44.1 Pneumonia J18.9 Laterality: left Lung location: lower lobe of lung Pneumonia type: due to unspecified organism S/P lobectomy of lung Z90.2 Squamous cell carcinoma of lung C34.90 Depression F32.9 Hypomagnesemia E83.42 (1) Pneumonia Laterality: left Lung location: lower lobe of lung Pneumonia type: due to unspecified organism Qualified Code(s): J18.9 - Pneumonia, unspecified organism
--- NOTE | 2020-05-23 01:12 | Emergency Department Note ---
History of Present Illness General Chief complaint: Shortness of Breath/Dyspnea Stated complaint: SOB Time Seen by Provider: 05/22/20 20:54 History of Present Illness Provider complaint: Shortness of breath Onset (ago): day(s) 2 Severity: similar to prior episodes (Similar to when she had fluid around her heart that need to be drained at [facility]) Maximum Pain Intensity: 2 Associated symptoms: + chest pain, + cough, + fever/chills and + shortness of breath; no headaches and no nausea/vomiting 64-year-old female on home oxygen 2 L normally presents emergency department shortness of breath. Patient reports her shortness of breath has been getting worse over the last 2 days. She also reports chest pain that radiates into her back. Patient states it feels similar to when she had fluid around her heart that needed to be drained at [facility]. Patient does have a history of lung cancer. She states she still does smoke. Patient states she still does drink alcohol and states she drank some cranberry with vodka prior to arrival. Patient states she has a home pulse oximeter and when she was wearing her normal 2 L her oxygen saturation was 70% on room 2 L. She increased to 3 L and her oxygen saturation was still in the 80s so she called EMS. EMS gave the patient 1 DuoNeb and kept her on 3 L which improved the patient's oxygen saturation into the 90s. Home Medications Medication Instructions Recorded Confirmed Type mirtazapine 15 mg tablet 7.5 mg PO HS #30 tab 10/06/19 05/22/20 Rx budesonide-formoterol HFA 160 2 puff INHALATION BID #10.2 g 03/24/20 05/22/20 Rx mcg-4.5 mcg/actuation aerosol inhaler tiotropium bromide 18 mcg capsule 1 cap INH DAILY #30 puffs 05/17/20 05/22/20 Rx with inhalation device albuterol sulfate 2.5 mg INH QID PRN 05/22/20 05/22/20 History albuterol sulfate [ProAir HFA] 2 puffs INH .Q4-6HRS PRN 05/22/20 05/22/20 History cholecalciferol (vitamin D3) 25 mcg PO DAILY 05/22/20 05/22/20 History [Vitamin D3] spbdkkzt-vpzs-AP-calcium-mins 1 tab PO DAILY 05/22/20 05/22/20 History [Women's One Daily] Allergies Allergy/AdvReac Type Severity Reaction Status Date / Time Bactrim Allergy Severe TONGUE Verified 10/29/17 10:17 SWELLING sulfamethoxazole Allergy Severe TONGUE Verified 05/22/20 22:18 SWELLING trimethoprim Allergy Severe TONGUE Verified 05/22/20 22:18 SWELLING aspirin Allergy Unknown SEVERE Verified 05/22/20 22:18 STOMACH CRAMPING Penicillins Allergy Unknown Unknown Verified 05/22/20 22:18 Past Med/Surg History Medical History (Updated 05/23/20 @ 01:37 by Philippe Esparza) Abnormal CT scan, gastrointestinal tract Alcoholism B12 deficiency Bilateral kidney stones Chronic obstructive pulmonary disease Chronic reflux esophagitis Chronic respiratory failure Dilation of thoracic aorta Influenza Lung cancer Osteoporosis Palliative care encounter Pneumonia Protein calorie malnutrition SIADH (syndrome of inappropriate ADH production) Squamous cell carcinoma of lung Unspecified cirrhosis of liver Surgical History (Updated 05/23/20 @ 01:28 by Philippe Esparza) S/P lobectomy of lung Family History Father Aortic aneurysm Hypertension Mother COPD (chronic obstructive pulmonary disease) CHF (congestive heart failure) Osteoporosis Renal failure Grandmother Diabetes Grandfather Skin cancer Other Myocardial infarction No pertinent family history in first degree relatives Denies family history of Ovarian cancer Prostate cancer Breast cancer Colorectal cancer Social History Smoking Status: Current every day smoker Tobacco Type: Cigarettes Hx Alcohol Use: Yes Alcohol type: hard liquor Alcohol Intake Frequency: 2-3 x/Week Alcohol Intake Frequency Comment: once a week Hx Substance Use: No Preferred Language: Faroese Communication Ability: Effective [employer] Music [employer] Required: No Beliefs That Will Affect Care: None marital status: Life Partner Current Living Situation: Significant Other current occupational status: disabled How many Children do You have: 3 Feels Safe at Home: Yes Dental Care, Regularly: No Physical Activity Frequency: Does not Exercise Seatbelt Use: always Sunscreen Use: No Assistive Devices: Oxygen - Continuous and Walker Review of Systems A total of 10 systems reviewed and were otherwise negative Physical Exam Vital Signs Vital Signs - 24 hr 05/22/20 20:35 05/22/20 20:39 05/22/20 21:26 Temperature 37.3 C Temperature Source Oral Pulse Rate 117 H Pulse Rate from SpO2 Sensor Respiratory Rate 22 22 Respiratory Effort / Characteristics Non-Labored Spontaneous Non-Labored Spontaneous Non-Labored Spontaneous Respiratory Depth Normal Normal Respiratory Pattern Regular Regular Blood Pressure 112/61 Blood Pressure Mean 78 Blood Pressure Position Lying Pulse Oximetry 96 96 Oxygen Delivery Method Nasal Cannula Nasal Cannula Oxygen Flow Rate 3 3 Sepsis Recent Fever Within 48 Hours No Sepsis New/Unexplained Change in Mental Status No Sepsis Action Taken by Nursing No Action Required 05/22/20 21:44 05/22/20 21:57 05/22/20 22:00 Temperature Temperature Source Pulse Rate 108 H 109 H Pulse Rate from SpO2 Sensor 109 H 109 H Respiratory Rate 24 24 Respiratory Effort / Characteristics Respiratory Depth Respiratory Pattern Blood Pressure 112/57 L 105/56 L Blood Pressure Mean 75 72 Blood Pressure Position Pulse Oximetry 97 97 96 Oxygen Delivery Method Nasal Cannula Nasal Cannula Nasal Cannula Oxygen Flow Rate 3 3 3 Sepsis Recent Fever Within 48 Hours Sepsis New/Unexplained Change in Mental Status Sepsis Action Taken by Nursing 05/22/20 23:00 05/22/20 23:30 Temperature Temperature Source Pulse Rate 103 H 108 H Pulse Rate from SpO2 Sensor 103 H 108 H Respiratory Rate 24 24 Respiratory Effort / Characteristics Respiratory Depth Respiratory Pattern Blood Pressure 105/59 L 99/55 L Blood Pressure Mean 74 69 Blood Pressure Position Pulse Oximetry 99 97 Oxygen Delivery Method Nasal Cannula Nasal Cannula Oxygen Flow Rate 3 3 Sepsis Recent Fever Within 48 Hours Sepsis New/Unexplained Change in Mental Status Sepsis Action Taken by Nursing Physical Exam GENERAL: Patient is cachectic and ill-appearing. HENT: Exam performed. -Head: Normocephalic and atraumatic. -Right Ear: External ear normal. No mastoid tenderness. -Left Ear: External ear normal. No mastoid tenderness. -Mouth/Throat: The oropharynx is clear and moist. No trismus in the jaw. No dental abscesses or uvula swelling. No oropharyngeal exudate or tonsillar abscesses. EYES: Conjunctivae and EOM are normal. Pupils are equal, round, and reactive to light. Right eye exhibits no discharge. Left eye exhibits no discharge. No scleral icterus. NECK: Normal range of motion. Neck supple. No JVD present. No spinous process tenderness present. No carotid bruit present. No rigidity. No tracheal deviation and normal range of motion present. No Brudzinski's sign and no Kernig's sign noted. CV: Tachycardic rate, regular rhythm, normal heart sounds and intact distal pulses. There is no peripheral edema. Palpable radial pulses bue. PULM/CHEST: Diminished sounds over the right thorax. -Chest Wall: She exhibits no tenderness. ABD: The abdomen is soft. Bowel sounds are normal. She has no distension. Hepatomegaly present. There is no tenderness. There is no rebound, no guarding, no Horan's sign and no tenderness at McBurney's point. Rovsig negative MUSC/SKEL: Normal range of motion. There is no peripheral edema, tenderness or deformity. LYMPH: No cervical adenopathy. NEURO: She is alert and oriented to person, place, and time. She has normal strength. No cranial nerve deficit or sensory deficit. Coordination and gait normal. GCS eye subscore is 4. GCS verbal subscore is 5. GCS motor subscore is 6. Cerebellar tests wnl. SKIN: Skin is warm and dry. She is not diaphoretic. PSYCH: She has a normal mood and affect. Behavior is normal. Judgment and thought content normal. Course Course 2053: The patient was evaluated in room C12. A complete history and physical exam was performed Cardiac monitoring: An order was placed for continuous cardiac monitoring. The monitor shows a rate of 80 with sinus rhythm 2325: Vital signs stable on 3 L nasal cannula. Labs show a leukocytosis of 17.6. Magnesium is 1.1. Magnesium repletion was started in the emergency department. CTA of the chest shows no PE but does show a left lower lobe consolidation which may represent pneumonia. Given the patient's history, patient be started on broad-spectrum antibiotics vancomycin and aztreonam and azithromycin. Patient will be admitted to the [facility] Dr. Connell notified. COVID-19 swab negative. Administered Medications Discontinued Medications Magnesium Sulfate/Dextrose (Magnesium Sulfate / D5w) 1 gm in 100 mls @ 100 mls/hr IV Q1H TRACE Stop: 05/23/20 01:21 Last Infusion: 05/23/20 00:58 Dose: 0 mls/hr Documented by: [id number] Admin: 05/22/20 23:50 Dose: 100 mls/hr Documented by: [id number] Aztreonam 1,000 mg/ Dextrose 110 mls @ 100 mls/hr IV NOW STA; Protocol Stop: 05/23/20 00:33 Last Infusion: 05/23/20 01:12 Dose: 0 mls/hr Documented by: [id number] Admin: 05/23/20 00:00 Dose: 100 mls/hr Documented by: [id number] Ioversol (Optiray 320 125ml) 118 ml IV ONCE ONE Stop: 05/22/20 22:54 Last Admin: 05/22/20 22:53 Dose: 118 ml Documented by: [id number] Medical Decision Making Laboratory Data Result diagrams: 05/22/20 21:37 05/22/20 21:37 Lab Results 05/22/20 05/22/20 05/22/20 Range/Units 21:37 21:37 21:37 WBC 17.61 H (4.8-10.8) K/uL RBC 3.58 L (4.2-5.4) M/uL Hgb 12.2 (12.0-16.0) g/dL Hct 36.7 L (37-47) % MCV 102.5 H (80-100) fL MCH 34.1 H (25-34) pg MCHC 33.2 (32-36) g/dL RDW Std Deviation 48.6 H (36.4-46.3) fL RDW Coeff of Niru 12.9 (11.5-14.5) % Plt Count 159 (130-400) K/uL MPV 9.8 (7.4-10.4) fL Immature Gran % (Auto) 0.2 % Neut % (Auto) 88.9 % Lymph % (Auto) 2.6 % Blair % (Auto) 8.2 % Eos % (Auto) 0.0 % Baso % (Auto) 0.1 % Neut # (Auto) 15.65 H (1.4-6.5) K/uL Lymph # (Auto) 0.46 L (1.2-3.4) K/uL Blair # (Auto) 1.45 H (0.11-0.59) K/uL Eos # (Auto) 0.00 (0-0.5) K/uL Baso # (Auto) 0.01 (0-0.2) K/uL Immature Gran # (Auto) 0.04 H (0.00-0.02) K/uL PT 11.1 (9.0-12.0) Seconds INR 1.1 (0.9-1.1) APTT 27.8 (21.0-31.0) Seconds PTT Ratio 1.1 VBG pH (7.36-7.41) VBG pCO2 (38-50) mmHg VBG pO2 mmHg VBG HCO3 mmol/L VBG O2 Saturation % VBG Base Excess mEq/L Barometric Pressure mm/Hg Sodium 134 L (136-145) mmol/L Potassium 3.8 (3.5-5.1) mmol/L Chloride 100 (98-107) mmol/L Carbon Dioxide 28 (21-32) mmol/L Anion Gap 7.0 (3-11) BUN 8 (7-18) mg/dl Creatinine 0.53 L (0.6-1.2) mg/dl Est Cr Clr Drug Dosing 59.8 ml/min Est GFR ( Amer) 115.5 Est GFR (Non-Af Amer) 99.6 BUN/Creatinine Ratio 14.2 (10-20) Glucose 116 H (70-99) mg/dl Lactate (0.4-2.0) mmol/L Calcium 9.2 (8.5-10.1) mg/dl Magnesium 1.1 L (1.8-2.4) mg/dl Total Bilirubin 0.6 (0.2-1) mg/dl AST 13 L (15-37) U/L ALT 12 (12-78) U/L Alkaline Phosphatase 87 (45-117) U/L Ammonia (11-32) umol/L Troponin I < 0.015 (0-0.045) ng/ml Total Protein 6.2 L (6.4-8.2) gm/dl Albumin 3.2 L (3.4-5.0) gm/dl Globulin 3.0 (2.5-4.0) gm/dl Albumin/Globulin Ratio 1.1 (0.9-2) COVID-19 Eval Order SARS-CoV-2 (PCR) (Negative) Influenza Type A (PCR) (Neg) Influenza Type B (PCR) (Neg) RSV (RT-PCR) (Neg) 05/22/20 05/22/20 05/22/20 Range/Units 21:37 21:37 22:37 WBC (4.8-10.8) K/uL RBC (4.2-5.4) M/uL Hgb (12.0-16.0) g/dL Hct (37-47) % MCV (80-100) fL MCH (25-34) pg MCHC (32-36) g/dL RDW Std Deviation (36.4-46.3) fL RDW Coeff of Niru (11.5-14.5) % Plt Count (130-400) K/uL MPV (7.4-10.4) fL Immature Gran % (Auto) % Neut % (Auto) % Lymph % (Auto) % Blair % (Auto) % Eos % (Auto) % Baso % (Auto) % Neut # (Auto) (1.4-6.5) K/uL Lymph # (Auto) (1.2-3.4) K/uL Blair # (Auto) (0.11-0.59) K/uL Eos # (Auto) (0-0.5) K/uL Baso # (Auto) (0-0.2) K/uL Immature Gran # (Auto) (0.00-0.02) K/uL PT (9.0-12.0) Seconds INR (0.9-1.1) APTT (21.0-31.0) Seconds PTT Ratio VBG pH (7.36-7.41) VBG pCO2 (38-50) mmHg VBG pO2 mmHg VBG HCO3 mmol/L VBG O2 Saturation % VBG Base Excess mEq/L Barometric Pressure mm/Hg Sodium (136-145) mmol/L Potassium (3.5-5.1) mmol/L Chloride (98-107) mmol/L Carbon Dioxide (21-32) mmol/L Anion Gap (3-11) BUN (7-18) mg/dl Creatinine (0.6-1.2) mg/dl Est Cr Clr Drug Dosing ml/min Est GFR ( Amer) Est GFR (Non-Af Amer) BUN/Creatinine Ratio (10-20) Glucose (70-99) mg/dl Lactate 1.1 (0.4-2.0) mmol/L Calcium (8.5-10.1) mg/dl Magnesium (1.8-2.4) mg/dl Total Bilirubin (0.2-1) mg/dl AST (15-37) U/L ALT (12-78) U/L Alkaline Phosphatase (45-117) U/L Ammonia (11-32) umol/L Troponin I (0-0.045) ng/ml Total Protein (6.4-8.2) gm/dl Albumin (3.4-5.0) gm/dl Globulin (2.5-4.0) gm/dl Albumin/Globulin Ratio (0.9-2) COVID-19 Eval Order CovFluRsv at [facility] SARS-CoV-2 (PCR) NEGATIVE (Negative) Influenza Type A (PCR) Negative (Neg) Influenza Type B (PCR) Negative (Neg) RSV (RT-PCR) Negative (Neg) 05/22/20 05/22/20 Range/Units 22:37 22:37 WBC (4.8-10.8) K/uL RBC (4.2-5.4) M/uL Hgb (12.0-16.0) g/dL Hct (37-47) % MCV (80-100) fL MCH (25-34) pg MCHC (32-36) g/dL RDW Std Deviation (36.4-46.3) fL RDW Coeff of Niru (11.5-14.5) % Plt Count (130-400) K/uL MPV (7.4-10.4) fL Immature Gran % (Auto) % Neut % (Auto) % Lymph % (Auto) % Blair % (Auto) % Eos % (Auto) % Baso % (Auto) % Neut # (Auto) (1.4-6.5) K/uL Lymph # (Auto) (1.2-3.4) K/uL Blair # (Auto) (0.11-0.59) K/uL Eos # (Auto) (0-0.5) K/uL Baso # (Auto) (0-0.2) K/uL Immature Gran # (Auto) (0.00-0.02) K/uL PT (9.0-12.0) Seconds INR (0.9-1.1) APTT (21.0-31.0) Seconds PTT Ratio VBG pH 7.39 (7.36-7.41) VBG pCO2 54 H (38-50) mmHg VBG pO2 35 mmHg VBG HCO3 32 mmol/L VBG O2 Saturation 66.8 % VBG Base Excess 5.6 mEq/L Barometric Pressure 740.4 mm/Hg Sodium (136-145) mmol/L Potassium (3.5-5.1) mmol/L Chloride (98-107) mmol/L Carbon Dioxide (21-32) mmol/L Anion Gap (3-11) BUN (7-18) mg/dl Creatinine (0.6-1.2) mg/dl Est Cr Clr Drug Dosing ml/min Est GFR ( Amer) Est GFR (Non-Af Amer) BUN/Creatinine Ratio (10-20) Glucose (70-99) mg/dl Lactate (0.4-2.0) mmol/L Calcium (8.5-10.1) mg/dl Magnesium (1.8-2.4) mg/dl Total Bilirubin (0.2-1) mg/dl AST (15-37) U/L ALT (12-78) U/L Alkaline Phosphatase (45-117) U/L Ammonia 11.7 (11-32) umol/L Troponin I (0-0.045) ng/ml Total Protein (6.4-8.2) gm/dl Albumin (3.4-5.0) gm/dl Globulin (2.5-4.0) gm/dl Albumin/Globulin Ratio (0.9-2) COVID-19 Eval Order SARS-CoV-2 (PCR) (Negative) Influenza Type A (PCR) (Neg) Influenza Type B (PCR) (Neg) RSV (RT-PCR) (Neg) Imaging Data My Impression: No change from previous chest x-ray done in August 2019. Radiologist's Impression: Preliminary Findings Only See Final Report For Complete Findings CTA CHEST: Impression: Left lower lobe consolidation may represent pneumonia in the appropriate clinical scenario. Postsurgical change related to prior resection of the right lung with similar appearance of fluid collection in the right pleural cavity. No evidence of pulmonary embolism. Similar appearance of opacity in the left upper lobe compared to CT chest 09/15/2018. Severe emphysematous change of the left lung. Ectasia of the ascending aorta measuring up to 3.7 cm. Radiologist: Norris Andrews MD Study ready at 23:02 and initial results transmitted at 23:19 ECG Data Indication: + chest pain and + SOB/dyspnea Rate (beats per minute): 84 Rhythm: + normal sinus ECG Intervals/blocks: + Normal QRS, + Normal [place] and + Normal QT-c ECG ST segments: + Normal ST segments [facility] Narrative 2053: The patient was evaluated in room C12. A complete history and physical exam was performed Cardiac monitoring: An order was placed for continuous cardiac monitoring. The monitor shows a rate of 80 with sinus rhythm 2325: Vital signs stable on 3 L nasal cannula. Labs show a leukocytosis of 17.6. Magnesium is 1.1. Magnesium repletion was started in the emergency department. CTA of the chest shows no PE but does show a left lower lobe consolidation which may represent pneumonia. Given the patient's history, patient be started on broad-spectrum antibiotics vancomycin and aztreonam and azithromycin. Patient will be admitted to the [facility] Dr. Connell notified. COVID-19 swab negative. Impression & Plan Pneumonia, Hypomagnesemia Discharge Plan Visit Data Chief Complaint: Shortness of Breath/Dyspnea Stated Complaint: SOB ED Provider: Philippe Esparza Discharge Problem: Pneumonia, Hypomagnesemia Patient Disposition: Admitted As Inpatient Discharge Instructions Interventions: ED Discharge Assessment Last Done: 05/23/20 00:40 Discharge Problem: Pneumonia Qualifiers: Pneumonia type: due to unspecified organism Laterality: left Lung location: lower lobe of lung Qualified Code(s): J18.9 - Pneumonia, unspecified organism
[2020-05-23] MEDS ORDERED: ONDANSETRON INJ 2 MG/ML 2 ML VIAL IV PRN (01:31)
[2020-05-23] MEDS ORDERED: ACETAMINOPHEN 325 MG TAB PO PRN (01:31)
[2020-05-23] MEDS ORDERED: VANCOMYCIN CONSULT ACTIVE PRN (01:31)
[2020-05-23] MEDS ORDERED: methylPREDNISolone 40 MG in SYRINGE 0 ML IV SCH (02:00)
[2020-05-23] MEDS: MAGNESIUM SULFATE / D5W 1 GM/100 ML BAG IV SCH (03:56)
[2020-05-23] MEDS: NICOTINE 14 MG/24 HR PATCH TD SCH (06:03)
[2020-05-23 06:47] LABS: Basophils # (auto) 0.01 K/uL (0-0.2); Basophils % (auto) 0.1 %; Hematocrit (blood only) 37.1 % (37-47); Hemoglobin 12.5 g/dL (12.0-16.0); Immature Granulocytes # (auto) 0.04 K/uL (0.00-0.02); Immature Granulocytes % (auto) 0.2 %; Lymphocytes # (auto) 0.18 K/uL (1.2-3.4); Lymphocytes % (auto) 0.9 %; Mean Corpuscular Hemoglobin 34.4 pg (25-34); Mean Corpuscular Hgb Conc 33.7 g/dL (32-36); Mean Corpuscular Volume 102.2 fL (80-100); Mean Platelet Volume 10.2 fL (7.4-10.4); Monocytes # (auto) 0.68 K/uL (0.11-0.59); Monocytes % (auto) 3.4 %; Neutrophils # (auto) 19.07 K/uL (1.4-6.5); Neutrophils % (auto) 95.4 %; Platelet Count 152 K/uL (130-400); RDW Coefficient of Variation 12.9 % (11.5-14.5); RDW Standard Deviation 48.7 fL (36.4-46.3); Red Blood Count 3.63 M/uL (4.2-5.4); White Blood Count 19.98 K/uL (4.8-10.8)
--- NOTE | 2020-05-23 07:01 | XRay Report ---
XR chest 1V portable HISTORY: 64 years-old Female SOB acute shortness of breath COMPARISON: CTA chest of same day, chest radiographs 09/02/2019 TECHNIQUE: Portable AP view of the chest FINDINGS: Prior right-sided pneumonectomy with right-sided midline shift. Emphysema with chronic interstitial c oarsening. Left lung base airspace opacities are new from comparison.. Trace left pleural effusion. T here is no pneumothorax or overt pulmonary edema. Degenerative changes of the shoulders and spine. IMPRESSION: 1. Left lung base airspace opacities are concerning for pneumonia versus aspiration pneumonitis. 2. Prior right-sided pneumonectomy. 3. Trace left pleural effusion. 4. Emphysema. ACT 112: Negative or not required by law. The above report was generated using voice recognition software. It may contain grammatical, syntax o r spelling errors. Electronically signed by: Lyle Jha M.D. 05/23/2020 7:00 AM
[2020-05-23 07:17] LABS: Albumin Level 3.1 gm/dl (3.4-5.0); Calcium 8.9 mg/dl (8.5-10.1); Creatinine Clr Calc Pharmacy 66.9 ml/min; Est GFR (African American) 121.9; Est GFR (Non-African American) 105.1; Potassium 3.7 mmol/L (3.5-5.1)
[2020-05-23 07:20] LABS: Total Protein 6.1 gm/dl (6.4-8.2)
[2020-05-23] MEDS: ALBUT/IPRATROP 3MG/0.5MG NEB 3 ML VIAL NEB SCH ×4 (07:28→19:54)
[2020-05-23] MEDS ORDERED: VANCOMYCIN HCL 1,000 MG in SODIUM CHLORIDE 0.9% 250 ML IV SCH (08:00)
[2020-05-23] MEDS: AZTREONAM 1,000 MG in DEXTROSE 5% 100 ML IV SCH ×2 (08:27→16:07)
[2020-05-23] MEDS: guaiFENesin 600 MG TABCR PO SCH ×2 (08:28→21:24)
[2020-05-23] MEDS: CHOLECALCIFEROL 1,000 UNITS 25 MCG TAB PO SCH (08:28)
[2020-05-23] MEDS: ENOXAPARIN INJ 30 MG/0.3 ML SYR SQ SCH ×2 (08:28→08:34)
[2020-05-23] MEDS: FLUTICASONE/VILANTEROL 100/25MCG 14 PUFFS/INHALER INH SCH (08:28)
--- NOTE | 2020-05-23 08:57 | CT Scan Report ---
CT ANGIOGRAM OF THE CHEST CLINICAL HISTORY: Dyspnea. History of lung cancer. COMPARISON STUDY: Chest CT dated 09/15/2018 and 05/11/2014. TECHNIQUE: Following the IV administration of 118 cc of Optiray 320, CT angiogram of the chest was pe rformed from the upper abdomen to the thoracic inlet utilizing the pulmonary embolus protocol. Images are reviewed in the axial, sagittal, and coronal planes. 3-D MIPS images are created and assessed. I V contrast was administered without complication. A dose lowering technique was utilized adhering to the principles of ALARA. The examination is compromised by motion artifact. CT DOSE: 238.71 mGycm FINDINGS: Thyroid: Imaged portions of the thyroid gland are normal in size and attenuation. Thoracic aorta: There is atherosclerotic calcification of the thoracic aorta. Ectasia of the ascendin g thoracic aorta is unchanged, measuring up to 3.7 cm in diameter. The remainder of the thoracic aort a is normal in caliber and the arch demonstrates standard 3-vessel anatomy. No dissection is seen. Pulmonary vasculature: The pulmonary trunk is mildly dilated suggesting pulmonary artery hypertension . There is minimal chronic thrombus within the right main pulmonary artery seen on axial image #184. The remaining right-sided pulmonary vessels are surgically absent. There are no filling defects ident ified in left main, lobar, or segmental pulmonary branches to suggest pulmonary embolus. Heart: There is rightward shift of mediastinum. The heart is normal in size and without pericardial e ffusion. Lungs and pleural spaces: Evaluation of the lungs is compromised by motion artifact. There is postope rative change and volume loss consistent with right-sided pneumonectomy. There is compensatory hyperi nflation of the left lung. A peripherally calcified chronic fluid collection in the right hemithorax is unchanged from previous. This measures approximately 12 x 7 x 2 cm. There is dense airspace consol idation at the left lung base and trace left pleural effusion. A 7 mm pleural-based nodule at the lef t lung base image #81 is unchanged from 2019. Fibrotic changes again seen in the lingula. The trachea and left mainstem bronchus are clear. Mediastinum: There is no mediastinal lymphadenopathy. Jinny: Clear. Axillae: There is no axillary lymphadenopathy. Upper abdomen: A calcified granuloma is noted in the spleen. The liver appears cirrhotic in morpholog y, with nodularity of the surface contour and hypertrophy of the left lobe. Skeletal structures: The skeletal structures are osteopenic. Degenerative change and hyperkyphosis is noted throughout the thoracic spine. There are several mild thoracic compression deformities. No lyt ic or blastic bony lesions are seen. Chronic/postoperative change is noted in the right sided ribs. IMPRESSION: 1. There is no evidence of acute pulmonary embolus in the left main, lobar, or segmental pulmonary ar teries. 2. There is a small amount of chronic thrombus within the distal right main pulmonary artery. This orr s decreased in size as compared to study dating back to 2014. 3. Advanced emphysema with postoperative change from right-sided pneumonectomy. 4. There is dense airspace consolidation at the left lung base consistent with pneumonia/aspiration p neumonitis. Radiographic follow-up to resolution is recommended. 5. Trace left pleural effusion. 6. A 7 mm pleural-based nodule at the left lung base is unchanged from prior studies. 7. Additional findings as above. ACT 112: Negative or not required by law. Electronically signed by: Teodoro Carrion M.D. 05/23/2020 8:55 AM
[2020-05-23] MEDS ORDERED: NON-FORMULARY MEDICATION (Multivit-Iron-Fa-Calcium-Mins [Women's One Daily] 18 mg iron-400 PO SCH (09:00)
--- NOTE | 2020-05-23 09:04 | Hospitalist Progress Note ---
Date of Service May 23, 2020 Assessment & Plan (1) Acute exacerbation of chronic obstructive pulmonary disease: Acute on chronic respiratory failure, pneumonia with a history of right lung lobectomy for squamous cell lung cancer. Duonebs every 4 hours while awake and every 2 hours when necessary. Vancomycin IV, aztreonam IV and azithromycin IV. It is noted patient has a positive MRSA nasal swab she is also failed 3 rounds of outpatient antibiotics and steroids which may lead to this being a resistant organism however patient also has an aspiration risk and the location of the infiltrate is consistent with possible aspiration pneumonia. Patient did see speech therapy in February 2019 at which time she had a swallowing dysfunction was recommended for strengthening and was given information for maneuvers to avoid aspiration Methylprednisolone 40 mg IV every 12 hours Continue inhaler fluticasone/Vilanterol Guaifenesin extended release 60 mg p.o. every 12 hours Nasal cannula oxygen, titrate to keep pulse ox around 92-94% Advised tobacco cessation (2) Pneumonia: With failure of outpatient antibiotics x3 and nasal swab positive consideration of this being a MRSA or other drug-resistant organism (3) S/P lobectomy of lung: See above (4) Squamous cell carcinoma of lung: CT scan of the chest with angiography 05/22/2020 IMPRESSION: 1. There is no evidence of acute pulmonary embolus in the left main, lobar, or segmental pulmonary arteries. 2. There is a small amount of chronic thrombus within the distal right main pulmonary artery. This has decreased in size as compared to study dating back to 2014. 3. Advanced emphysema with postoperative change from right-sided pneumonectomy. 4. There is dense airspace consolidation at the left lung base consistent with pneumonia/aspiration pneumonitis. Radiographic follow-up to resolution is recommended. 5. Trace left pleural effusion. 6. A 7 mm pleural-based nodule at the left lung base is unchanged from prior studies. (5) Depression: Continue mirtazapine (6) Hypomagnesemia: Magnesium 1.1 upon admission. IV replacement ordered in the ED Repeat laboratories in a.m. (7) Dysphagia: Previously had speech evaluation February 24, 2019 as this is in the right lower lobe consideration of recurrent aspiration will reengage with the speech evaluation to see if the patient has worsened or improved from her previous dysphagia evaluation Admission and Anticipated Discharge Date Admission Date: May 22, 2020 Subjective Patient states she is feeling slightly better. She still has a productive cough of her typical mucus. She states she feels less short of breath. She has been seen by nutrition and recommends daily multiple vitamin and thiamine supplementation Review of Systems Review of Systems: Mild distress and fatigue Mild bifrontal headache, without blurry or double vision no speech or swallowing issues no chest pain, pressure or palpitations Worse than baseline shortness of breath cough productive of white mucus no abdominal pain, nausea or vomiting, diarrhea or constipation no dysuria, hematuria or frequency no focal joint pain or swelling no back pain, CVA tenderness or radicular pain no bruising, bleeding or rashes no focal signs of weakness or numbness or altered sensation no complaints of anxiety or depression.. Physical Exam Physical Exam: The patient appeared underweight with a BMI of 13 Vital signs as documented. Head exam is normocephalic atraumatic no scleral icterus Neck is without JVD, thyromegaly, or carotid bruits. Lungs right lung has decreased breath sounds consistent with previous pneumonectomy at the apex and the whole left lung have decreased breath sounds throughout but there is some air movement no wheezes or focal loss no rhonchi rales. Loose cough during examination Cardiac exam, Rhythm is regular.. No murmurs, rubs or gallops. Abdominal exam reveals normal bowel sounds, soft non tender, no masses Extremities are nonedematous and both pedal pulses are present Neurologic exam is alert and oriented, no focal loss of strength or sensation Skin is without bruises or rashes Psychologically is without concerns for anxiety or depression Results & Data Results & Data ([facility]) Vital Signs (Past 12 Hours) Vital Signs Temp Pulse Pulse Resp BP BP Pulse Ox 05/23/20 08:12 98.8 F 85 20 92/57 L 98 05/23/20 07:29 87 18 96 05/23/20 07:19 87 05/23/20 01:31 99.0 F 102 H 104 H 21 104/67 91 05/23/20 00:30 102 H 23 90/51 L 94 05/23/20 00:00 107 H 24 104/58 L 94 05/22/20 23:30 108 H 24 99/55 L 97 05/22/20 23:00 103 H 24 105/59 L 99 05/22/20 22:00 109 H 24 105/56 L 96 05/22/20 21:57 97 05/22/20 21:44 108 H 24 112/57 L 97 05/22/20 21:26 22 96 PG Care Time/CCT Total # of Minutes Spent Total Time Spent with Patient: Total time spent is greater than 50% in coordination of care (as documented) at patient's floor/unit and/or counseling patient: Coding Level of Care Code 63317 Subseq Hosp Care Lvl 3 Diagnoses Acute exacerbation of chronic obstructive pulmonary disease J44.1 Pneumonia J18.9 Laterality: left Lung location: lower lobe of lung Pneumonia type: due to unspecified organism S/P lobectomy of lung Z90.2 Squamous cell carcinoma of lung C34.90 Depression F32.9 Hypomagnesemia E83.42 Dysphagia R13.10 (1) Pneumonia Laterality: left Lung location: lower lobe of lung Pneumonia type: due to unspecified organism Qualified Code(s): J18.9 - Pneumonia, unspecified organism
--- NOTE | 2020-05-23 10:48 | Electrocardiogram Report ---
Test Reason : Blood Pressure : / mmHG Vent. Rate : 113 BPM Atrial Rate : 113 BPM P-R Int : 120 ms QRS Dur : 074 ms QT Int : 298 ms P-R-T Axes : 068 062 230 degrees QTc Int : 408 ms Sinus tachycardia T wave abnormality, consider inferior ischemia T wave abnormality, consider anterolateral ischemia Abnormal ECG When compared with ECG of 01-MAR-2019 09:14, Non-specific change in ST segment in Anterior leads T wave inversion now evident in Inferior leads Confirmed by Santiago Herrera ([id number]) on 05/23/2020 10:48:09 AM Referred By: REFERRED SELF Confirmed By:Santiago Herrera
--- NOTE | 2020-05-23 10:50 | Pharmacy Report ---
Pharmacy Abx Initial Consult - Date of Service May 23, 2020 - Pharmacy Dosing Scope Date of Consult: 05/23/20 Consultation requested by: Dr. Giordano Pharmacy is consulted to initiate vancomycin IV dosing therapy, order appropriate labs and adjust drug dose/frequency. - Subjective The patient is a 64 year old F admitted on 05/22/20 23:57. - Objective Height: 5 ft 3 in Weight: 34 kg Vital Signs (Past 12hrs): Vital Signs Temp Pulse Pulse Resp BP BP Pulse Ox 05/23/20 08:12 37.1 C 85 20 92/57 L 98 05/23/20 07:29 87 18 96 05/23/20 07:19 87 05/23/20 01:31 37.2 C 102 H 104 H 21 104/67 91 05/23/20 00:30 102 H 23 90/51 L 94 05/23/20 00:00 107 H 24 104/58 L 94 05/22/20 23:30 108 H 24 99/55 L 97 05/22/20 23:00 103 H 24 105/59 L 99 Lab Results (24hrs): Laboratory Tests (24 Hours) 05/23/20 05/23/20 05/23/20 09:27 06:05 06:05 WBC 19.98 H Neut # (Auto) 19.07 H Creatinine 0.45 L Est Cr Clr Drug Dosing 66.9 Random Vancomycin 7.8 05/22/20 05/22/20 21:37 21:37 WBC 17.61 H Neut # (Auto) 15.65 H Creatinine 0.53 L Est Cr Clr Drug Dosing 59.8 Random Vancomycin Micro Results: 05/22/20 21:35 Aerobic Blood Culture - Pending Blood Anaerobic Blood Culture - Pending 05/22/20 22:37 Aerobic Blood Culture - Pending Blood Anaerobic Blood Culture - Pending - Assessment & Plan Assessment 64 year old F ordered empiric vancomycin, aztreonam, and azithromycin for treatment of acute COPD exacerbation likely secondary to pneumonia. Of note, patient has squamous cell lung cancer and is s/p right lung lobectomy. MRSA nasal swab obtained this morning and is positive. Chest x-ray shows left lung base opacities, which are concerning for pneumonia/aspiration pneumonitis. Patient with leukocytosis and left-shift (WBC: 20 K, Neutrophils: 19). Afebrile since time of admission. Patient given vancomycin loading dose this morning of 750 mg IV x 1. Given patient weight of 34 kg, obtained random vancomycin level to ensure clearance of drug. Random vanco level obtained ~8 hours after loading dose, returned at 7.8 mcg/mL. Renal function appears to be at baseline. Blood cultures obtained on 05/22/20 - pending Plan Vancomycin IV * Loading dose: 750 mg (22 mg/kg) * Maintenance dose: 750 mg IV (22 mg/kg) every 12 hours * Goal trough level for possible MRSA pneumonia : 15 to 20 mcg/mL * Will obtain trough level prior to steady-state given patient weight of 34 kg and high mg/kg maintenance dose, 05/24/20 prior to 3rd maintenance dose Aztreonam IV * 1 g IV q8h is reasonable given patient weight * If patient does not improve with this regimen, consider increasing to target dose of 2 g IV q8h Azithromycin IV * 500 mg IV q24h - appropriate Pharmacy will continue to follow and will adjust dose/frequency as necessary. Thank you.
[2020-05-23] MEDS: VANCOMYCIN HCL 750 MG in SODIUM CHLORIDE 0.9% 250 ML IV SCH ×2 (11:33→22:35)
[2020-05-23] MEDS ORDERED: IBUPROFEN 200 MG TAB PO PRN (15:11)
[2020-05-23] MEDS: methylPREDNISolone 40 MG in SYRINGE 0 ML IV SCH ×2 (16:09→16:27)
--- NOTE | 2020-05-23 18:57 | Hospitalist Progress Note ---
Date of Service May 23, 2020 Assessment & Plan (1) Acute exacerbation of chronic obstructive pulmonary disease: Acute on chronic respiratory failure with hypoxia, pneumonia with a history of right lung lobectomy for squamous cell lung cancer. Duonebs every 4 hours while awake and every 2 hours when necessary. Vancomycin IV, aztreonam IV and azithromycin IV. It is noted patient has a positive MRSA nasal swab she is also failed 3 rounds of outpatient antibiotics and steroids which may lead to this being a resistant organism however patient also has an aspiration risk and the location of the infiltrate is consistent with possible aspiration pneumonia. Patient did see speech therapy in February 2019 at which time she had a swallowing dysfunction was recommended for strengthening and was given information for maneuvers to avoid aspiration Methylprednisolone 40 mg IV every 12 hours Continue inhaler fluticasone/Vilanterol Guaifenesin extended release 60 mg p.o. every 12 hours Nasal cannula oxygen, titrate to keep pulse ox around 92-94% Advised tobacco cessation (2) Pneumonia: With failure of outpatient antibiotics x3 and nasal swab positive consideration of this being a MRSA or other drug-resistant organism (3) S/P lobectomy of lung: See above (4) Squamous cell carcinoma of lung: CT scan of the chest with angiography 05/22/2020 IMPRESSION: 1. There is no evidence of acute pulmonary embolus in the left main, lobar, or segmental pulmonary arteries. 2. There is a small amount of chronic thrombus within the distal right main pulmonary artery. This has decreased in size as compared to study dating back to 2014. 3. Advanced emphysema with postoperative change from right-sided pneumonectomy. 4. There is dense airspace consolidation at the left lung base consistent with pneumonia/aspiration pneumonitis. Radiographic follow-up to resolution is recommended. 5. Trace left pleural effusion. 6. A 7 mm pleural-based nodule at the left lung base is unchanged from prior studies. (5) Depression: Continue mirtazapine (6) Hypomagnesemia: Magnesium 1.1 upon admission. IV replacement ordered in the ED Repeat laboratories in a.m. (7) Dysphagia: Previously had speech evaluation February 24, 2019 as this is in the right lower lobe consideration of recurrent aspiration will reengage with the speech evaluation to see if the patient has worsened or improved from her previous dysphagia evaluation (8) Protein-calorie malnutrition, severe: Admission and Anticipated Discharge Date Admission Date: May 22, 2020 Results & Data Results & Data ([facility]) Vital Signs (Past 12 Hours) Vital Signs Temp Pulse Pulse Resp BP BP Pulse Ox 05/23/20 16:30 100 H 05/23/20 15:10 96 H 12 96 05/23/20 15:00 98.1 F 102 H 16 93/46 L 91 05/23/20 11:41 98.4 F 95 H 16 93/58 L 96 05/23/20 11:15 91 H 16 97 05/23/20 08:12 98.8 F 85 20 92/57 L 98 05/23/20 07:29 87 18 96 05/23/20 07:19 87 PG Care Time/CCT Total # of Minutes Spent Total Time Spent with Patient: Total time spent is greater than 50% in coordination of care (as documented) at patient's floor/unit and/or counseling patient: Coding Level of Care Code None Diagnoses Acute exacerbation of chronic obstructive pulmonary disease J44.1 Pneumonia J18.9 Laterality: left Lung location: lower lobe of lung Pneumonia type: due to unspecified organism S/P lobectomy of lung Z90.2 Squamous cell carcinoma of lung C34.90 Depression F32.9 Hypomagnesemia E83.42 Dysphagia R13.10 Protein-calorie malnutrition, severe E43 (1) Pneumonia Laterality: left Lung location: lower lobe of lung Pneumonia type: due to unspecified organism Qualified Code(s): J18.9 - Pneumonia, unspecified organism
[2020-05-23] MEDS: MIRTAZAPINE TAB 15 MG TAB PO SCH (21:24)
[2020-05-23] MEDS ORDERED: guaiFENesin/DEXTROM SYRUP 100MG/10MG 5ML UDC PO ONE (21:40)
[2020-05-24] MEDS: AZTREONAM 1,000 MG in DEXTROSE 5% 100 ML IV SCH ×4 (00:04→23:00)
[2020-05-24] MEDS: AZITHROMYCIN 500 MG in DEXTROSE 5% 250 ML IV SCH (01:24)
[2020-05-24] MEDS: methylPREDNISolone 40 MG in SYRINGE 0 ML IV SCH ×2 (05:18→15:19)
[2020-05-24] MEDS: ALBUT/IPRATROP 3MG/0.5MG NEB 3 ML VIAL NEB SCH ×4 (07:19→19:51)
[2020-05-24 07:38] LABS: Albumin Level 2.7 gm/dl (3.4-5.0); BUN Creatinine Ratio 31.8 (10-20); Calcium 8.9 mg/dl (8.5-10.1); Creatinine Clr Calc Pharmacy 82.9 ml/min; Est GFR (African American) 127.7; Est GFR (Non-African American) 110.2; Magnesium 1.6 mg/dl (1.8-2.4)
[2020-05-24 07:47] LABS: Albumin Globulin Ratio 0.9 (0.9-2); Bilirubin,Total 0.4 mg/dl (0.2-1); Globulin 3.2 gm/dl (2.5-4.0); Total Protein 5.9 gm/dl (6.4-8.2)
[2020-05-24 08:36] LABS: Hematocrit (blood only) 33.1 % (37-47); Hemoglobin 11.4 g/dL (12.0-16.0); Immature Granulocytes # (auto) 0.03 K/uL (0.00-0.02); Immature Granulocytes % (auto) 0.2 %; Lymphocytes # (auto) 0.44 K/uL (1.2-3.4); Lymphocytes % (auto) 2.5 %; Mean Corpuscular Hemoglobin 34.5 pg (25-34); Mean Corpuscular Hgb Conc 34.4 g/dL (32-36); Mean Corpuscular Volume 100.3 fL (80-100); Mean Platelet Volume 10.3 fL (7.4-10.4); Monocytes # (auto) 0.33 K/uL (0.11-0.59); Monocytes % (auto) 1.8 %; Neutrophils % (auto) 95.5 %; Platelet Count 154 K/uL (130-400); RDW Coefficient of Variation 12.9 % (11.5-14.5); RDW Standard Deviation 47.2 fL (36.4-46.3)
[2020-05-24] MEDS: FLUTICASONE/VILANTEROL 100/25MCG 14 PUFFS/INHALER INH SCH (08:47)
[2020-05-24] MEDS: NICOTINE 14 MG/24 HR PATCH TD SCH (08:47)
[2020-05-24] MEDS: CHOLECALCIFEROL 1,000 UNITS 25 MCG TAB PO SCH (08:48)
[2020-05-24] MEDS: MULTIVITAMIN CHEWABLE TAB PO SCH (08:48)
[2020-05-24] MEDS: ENOXAPARIN INJ 30 MG/0.3 ML SYR SQ SCH (08:48)
[2020-05-24] MEDS: THIAMINE HCL 100 MG TAB PO SCH (08:48)
[2020-05-24] MEDS: guaiFENesin 600 MG TABCR PO SCH ×2 (09:55→20:18)
[2020-05-24] MEDS ORDERED: VANCOMYCIN TROUGH ONE (10:30)
[2020-05-24] MEDS ORDERED: VANCOMYCIN HCL 750 MG in SODIUM CHLORIDE 0.9% 250 ML IV SCH ×2 (11:30→14:00)
[2020-05-24] MEDS: VANCOMYCIN HCL 750 MG in SODIUM CHLORIDE 0.9% 250 ML IV SCH ×3 (11:31→23:51)
--- NOTE | 2020-05-24 14:11 | Pharmacy Report ---
Pharmacy Abx Dose Short Note - Date of Service May 24, 2020 - Assessment & Plan Assessment 64 year old F receiving Vancomycin for treatment of Pneumonia. Day #2 of antimicrobial therapy. Pt was receiving Vanc 750 mg IV q12h. Trough Vanc level obtained today before AM dose of Vanc. Pt had received 3 total doses prior to this level. Plan Vancomycin * Trough level of 11.6 mcg/mL is subtherapeutic. * Ke = 0.119/hr, t1/2 = 5.8 hrs * Vanc dosing increased to 750 mg IV q8h * Goal trough level for Pneumonia: 15 to 20 mcg/mL * Trough Vanc level ordered for: 05/25/20 before dose at 1600. Pharmacy will continue to follow and will adjust dose/frequency as necessary. Crystal chambers.
--- NOTE | 2020-05-24 14:16 | Fluoroscopy Report ---
FL video swallow CLINICAL HISTORY: 64 years-old Female with h/o high aspiration risk. Acute dysphasia TECHNIQUE: Video fluoroscopic evaluation of swallowing was performed in the AP and lateral projection s by the speech pathology staff. The patient is fed nectar-thick and thin liquid barium, a barium coa dennis wafer, and barium pudding. FLUOROSCOPY TIME: 3.6 minutes.. COMPARISON STUDY: Video swallow study 02/23/2019 FINDINGS: Penetration with thin liquid barium. No aspiration identified. Vallecular retention is note d throughout the study. Hypopharyngeal dysmotility with pudding and cracker consistencies. Esophageal dysmotility is most pronounced in the mid and distal esophagus with decreased esophageal emptying. T he mid esophagus is mildly patulous. IMPRESSION: 1. Penetration with thin liquid barium. No aspiration identified. 2. Esophageal dysmotility. 3. Please see the speech pathologist report for detailed findings and recommendations. ACT 112: Negative or not required by law. Electronically signed by: Lyle Jha M.D. 05/24/2020 2:15 PM
--- NOTE | 2020-05-24 18:15 | Hospitalist Progress Note ---
Date of Service May 24, 2020 Assessment & Plan (1) Acute exacerbation of chronic obstructive pulmonary disease: Acute on chronic respiratory failure with hypoxia, pneumonia with a history of right lung lobectomy for squamous cell lung cancer. Duonebs every 4 hours while awake and every 2 hours when necessary. Vancomycin IV, aztreonam IV and azithromycin IV. It is noted patient has a positive MRSA nasal swab she is also failed 3 rounds of outpatient antibiotics and steroids which may lead to this being a resistant organism however patient also has an aspiration risk and the location of the infiltrate is consistent with possible aspiration pneumonia. Patient did see speech therapy in February 2019 at which time she had a swallowing dysfunction was recommended for strengthening and was given information for maneuvers to avoid aspiration Methylprednisolone 40 mg IV every 12 hours with a tapered dose to oral prednisone on 05/25/2020 Continue inhaler fluticasone/Vilanterol Guaifenesin extended release 60 mg p.o. every 12 hours Nasal cannula oxygen, titrate to keep pulse ox around 92-94% Advised tobacco cessation (2) Pneumonia: With failure of outpatient antibiotics x3 and nasal swab positive consideration of this being a MRSA or other drug-resistant organism (3) S/P lobectomy of lung: See above (4) Squamous cell carcinoma of lung: CT scan of the chest with angiography 05/22/2020 IMPRESSION: 1. There is no evidence of acute pulmonary embolus in the left main, lobar, or segmental pulmonary arteries. 2. There is a small amount of chronic thrombus within the distal right main pulmonary artery. This has decreased in size as compared to study dating back to 2014. 3. Advanced emphysema with postoperative change from right-sided pneumonectomy. 4. There is dense airspace consolidation at the left lung base consistent with pneumonia/aspiration pneumonitis. Radiographic follow-up to resolution is recommended. 5. Trace left pleural effusion. 6. A 7 mm pleural-based nodule at the left lung base is unchanged from prior studies. (5) Depression: Continue mirtazapine (6) Hypomagnesemia: Magnesium 1.1 upon admission. IV replacement ordered in the ED Repeat laboratories in a.m. (7) Dysphagia: Previously had speech evaluation February 24, 2019 as this is in the right lower lobe consideration of recurrent aspiration Speech therapy confirms persistent aspiration on video swallow we will continue to reinforce good swallowing habits and techniques (8) Protein-calorie malnutrition, severe: Admission and Anticipated Discharge Date Admission Date: May 22, 2020 Subjective Patient states she is feeling slightly better. She still has a productive cough of her typical mucus. She states she feels less short of breath. She has been seen by nutrition and recommends daily multiple vitamin and thiamine supplementation patient also has confirmed recurrent aspiration by video swallow Review of Systems Review of Systems: Mild distress and fatigue Mild bifrontal headache, without blurry or double vision no speech or swallowing issues no chest pain, pressure or palpitations Worse than baseline shortness of breath cough productive of white mucus no abdominal pain, nausea or vomiting, diarrhea or constipation no dysuria, hematuria or frequency no focal joint pain or swelling no back pain, CVA tenderness or radicular pain no bruising, bleeding or rashes no focal signs of weakness or numbness or altered sensation no complaints of anxiety or depression.. Physical Exam Physical Exam: The patient appeared underweight with a BMI of 13 Vital signs as documented. Head exam is normocephalic atraumatic no scleral icterus Neck is without JVD, thyromegaly, or carotid bruits. Lungs right lung has decreased breath sounds consistent with previous pneumonectomy at the apex and the whole left lung have decreased breath sounds throughout but there is some air movement no wheezes or focal loss no rhonchi rales. Loose cough during examination Cardiac exam, Rhythm is regular.. No murmurs, rubs or gallops. Abdominal exam reveals normal bowel sounds, soft non tender, no masses Extremities are nonedematous and both pedal pulses are present Neurologic exam is alert and oriented, no focal loss of strength or sensation Skin is without bruises or rashes Psychologically is without concerns for anxiety or depression Results & Data Results & Data ([facility]) Vital Signs (Past 12 Hours) Vital Signs Temp Pulse Pulse Resp BP Pulse Ox 05/24/20 15:30 98.1 F 108 H 18 114/59 L 90 05/24/20 15:06 97 H 16 95 05/24/20 14:20 105 H 05/24/20 11:21 97.9 F 96 H 18 98/57 L 96 05/24/20 11:12 98 H 16 95 05/24/20 07:52 97.9 F 84 16 102/60 98 05/24/20 07:44 79 05/24/20 07:20 87 18 96 PG Care Time/CCT Total # of Minutes Spent Total Time Spent with Patient: Total time spent is greater than 50% in coordination of care (as documented) at patient's floor/unit and/or counseling patient: Coding Level of Care Code 42471 Subseq Hosp Care Lvl 3 Diagnoses Acute exacerbation of chronic obstructive pulmonary disease J44.1 Pneumonia J18.9 Laterality: left Lung location: lower lobe of lung Pneumonia type: due to unspecified organism S/P lobectomy of lung Z90.2 Squamous cell carcinoma of lung C34.90 Depression F32.9 Hypomagnesemia E83.42 Dysphagia R13.10 Protein-calorie malnutrition, severe E43 (1) Pneumonia Laterality: left Lung location: lower lobe of lung Pneumonia type: due to unspecified organism Qualified Code(s): J18.9 - Pneumonia, unspecified organism
[2020-05-24] MEDS: MIRTAZAPINE TAB 15 MG TAB PO SCH (20:18)
[2020-05-24] MEDS ORDERED: MELATONIN 3 MG TAB PO PRN (20:24)
[2020-05-25] MEDS: AZITHROMYCIN 500 MG in DEXTROSE 5% 250 ML IV SCH (01:42)
[2020-05-25 06:15] LABS: Hematocrit (blood only) 33.1 % (37-47); Hemoglobin 11.2 g/dL (12.0-16.0); Immature Granulocytes # (auto) 0.02 K/uL (0.00-0.02); Immature Granulocytes % (auto) 0.2 %; Lymphocytes # (auto) 0.24 K/uL (1.2-3.4); Lymphocytes % (auto) 1.8 %; Mean Corpuscular Hemoglobin 34.3 pg (25-34); Mean Corpuscular Hgb Conc 33.8 g/dL (32-36); Mean Corpuscular Volume 101.2 fL (80-100); Monocytes # (auto) 0.92 K/uL (0.11-0.59); Platelet Count 162 K/uL (130-400); RDW Coefficient of Variation 12.9 % (11.5-14.5); RDW Standard Deviation 48.3 fL (36.4-46.3); Red Blood Count 3.27 M/uL (4.2-5.4); White Blood Count 13.08 K/uL (4.8-10.8)
[2020-05-25 06:43] LABS: Albumin Level 2.6 gm/dl (3.4-5.0); BUN Creatinine Ratio 31.6 (10-20); Calcium 8.6 mg/dl (8.5-10.1); Est GFR (African American) 127.7; Est GFR (Non-African American) 110.2; Magnesium 1.5 mg/dl (1.8-2.4); Potassium 3.8 mmol/L (3.5-5.1)
[2020-05-25 06:46] LABS: Albumin Globulin Ratio 0.8 (0.9-2); Bilirubin,Total 0.3 mg/dl (0.2-1); Globulin 3.2 gm/dl (2.5-4.0); Total Protein 5.8 gm/dl (6.4-8.2)
[2020-05-25] MEDS: ALBUT/IPRATROP 3MG/0.5MG NEB 3 ML VIAL NEB SCH ×4 (07:22→19:19)
[2020-05-25] MEDS: AZTREONAM 1,000 MG in DEXTROSE 5% 100 ML IV SCH ×2 (08:11→16:28)
[2020-05-25] MEDS: MAGNESIUM SULFATE / D5W 1 GM/100 ML BAG IV SCH ×2 (08:11→10:16)
[2020-05-25] MEDS: ENOXAPARIN INJ 30 MG/0.3 ML SYR SQ SCH (08:20)
[2020-05-25] MEDS: FLUTICASONE/VILANTEROL 100/25MCG 14 PUFFS/INHALER INH SCH (08:21)
[2020-05-25] MEDS: VANCOMYCIN HCL 750 MG in SODIUM CHLORIDE 0.9% 250 ML IV SCH ×2 (09:11→17:38)
[2020-05-25] MEDS: MULTIVITAMIN CHEWABLE TAB PO SCH (09:14)
[2020-05-25] MEDS: THIAMINE HCL 100 MG TAB PO SCH (09:14)
[2020-05-25] MEDS: CHOLECALCIFEROL 1,000 UNITS 25 MCG TAB PO SCH (09:14)
[2020-05-25] MEDS: guaiFENesin 600 MG TABCR PO SCH ×2 (10:16→20:41)
[2020-05-25] MEDS: NICOTINE 14 MG/24 HR PATCH TD SCH (10:16)
[2020-05-25] MEDS: predniSONE 20 MG TAB PO SCH (10:16)
[2020-05-25] MEDS ORDERED: VANCOMYCIN TROUGH ONE (15:30)
--- NOTE | 2020-05-25 16:58 | Hospitalist Progress Note ---
Date of Service May 25, 2020 Assessment & Plan (1) Acute exacerbation of chronic obstructive pulmonary disease: Acute on chronic respiratory failure with hypoxia, pneumonia with a history of right lung lobectomy for squamous cell lung cancer. Duonebs every 4 hours while awake and every 2 hours when necessary. Vancomycin IV, aztreonam IV and azithromycin IV. It is noted patient has a positive MRSA nasal swab she is also failed 3 rounds of outpatient antibiotics and steroids which may lead to this being a resistant organism however patient also has an aspiration risk and the location of the infiltrate is consistent with possible aspiration pneumonia. Patient did see speech therapy in February 2019 at which time she had a swallowing dysfunction was recommended for strengthening and was given information for maneuvers to avoid aspiration may consider de escalating antibiotics, consider doxycycline po will discuss with pharmacy Methylprednisolone 40 mg IV every 12 hours with a tapered dose to oral prednisone on 05/25/2020 Continue inhaler fluticasone/Vilanterol Guaifenesin extended release . every 12 hours flutter valve Nasal cannula oxygen, titrate to keep pulse ox around 92-94% Advised tobacco cessation (2) Pneumonia: With failure of outpatient antibiotics x3 and nasal swab positive consideration of this being a MRSA or other drug-resistant organism or recurrent aspiration pneumonia (3) S/P lobectomy of lung: See above (4) Squamous cell carcinoma of lung: CT scan of the chest with angiography 05/22/2020 IMPRESSION: 1. There is no evidence of acute pulmonary embolus in the left main, lobar, or segmental pulmonary arteries. 2. There is a small amount of chronic thrombus within the distal right main pulmonary artery. This has decreased in size as compared to study dating back to 2014. 3. Advanced emphysema with postoperative change from right-sided pneumonectomy. 4. There is dense airspace consolidation at the left lung base consistent with pneumonia/aspiration pneumonitis. Radiographic follow-up to resolution is recommended. 5. Trace left pleural effusion. 6. A 7 mm pleural-based nodule at the left lung base is unchanged from prior studies. (5) Depression: Continue mirtazapine (6) Hypomagnesemia: Magnesium 1.1 upon admission. IV replacement Repeat laboratories in a.m. (7) Dysphagia: Previously had speech evaluation February 24, 2019 as this is in the right lower lobe consideration of recurrent aspiration Speech therapy confirms persistent aspiration on video swallow we will continue to reinforce good swallowing habits and techniques (8) Protein-calorie malnutrition, severe: Admission and Anticipated Discharge Date Admission Date: May 22, 2020 Subjective pt states she is not feeling much better today, mostly bothered by cough, she unfortunately has recurrence aspiration and esophageal swalling dysfunction that is likely responsible for cough Review of Systems Review of Systems: Mild distress and fatigue Mild bifrontal headache, without blurry or double vision no speech or swallowing issues no chest pain, pressure or palpitations Worse than baseline shortness of breath cough productive of white mucus no abdominal pain, nausea or vomiting, diarrhea or constipation no dysuria, hematuria or frequency no focal joint pain or swelling no back pain, CVA tenderness or radicular pain no bruising, bleeding or rashes no focal signs of weakness or numbness or altered sensation no complaints of anxiety or depression.. Physical Exam Physical Exam: The patient appeared underweight with a BMI of 13 Vital signs as documented. Head exam is normocephalic atraumatic no scleral icterus Neck is without JVD, thyromegaly, or carotid bruits. Lungs right lung has decreased breath sounds consistent with previous pneumonectomy at the apex and the whole left lung have decreased breath sounds throughout but there is some air movement no wheezes or focal loss no rhonchi rales. Loose cough during examination Cardiac exam, Rhythm is regular.. No murmurs, rubs or gallops. Abdominal exam reveals normal bowel sounds, soft non tender, no masses Extremities are nonedematous and both pedal pulses are present Neurologic exam is alert and oriented, no focal loss of strength or sensation Skin is without bruises or rashes Psychologically is without concerns for anxiety or depression Results & Data Results & Data ([facility]) Vital Signs (Past 12 Hours) Vital Signs Temp Pulse Pulse Resp BP Pulse Ox 05/25/20 15:53 98.1 F 102 H 18 113/69 91 05/25/20 15:24 102 H 18 91 05/25/20 11:36 98.6 F 93 H 18 101/66 94 05/25/20 09:00 86 05/25/20 07:28 97.9 F 84 18 114/64 95 05/25/20 07:25 89 18 93 PG Care Time/CCT Total # of Minutes Spent Total Time Spent with Patient: Total time spent is greater than 50% in coordination of care (as documented) at patient's floor/unit and/or counseling patient: Coding Level of Care Code 83180 Subseq Hosp Care Lvl 3 Diagnoses Acute exacerbation of chronic obstructive pulmonary disease J44.1 Pneumonia J18.9 Laterality: left Lung location: lower lobe of lung Pneumonia type: due to unspecified organism S/P lobectomy of lung Z90.2 Squamous cell carcinoma of lung C34.90 Depression F32.9 Hypomagnesemia E83.42 Dysphagia R13.10 Protein-calorie malnutrition, severe E43 (1) Pneumonia Laterality: left Lung location: lower lobe of lung Pneumonia type: due to unspecified organism Qualified Code(s): J18.9 - Pneumonia, unspecified organism
[2020-05-25] MEDS: MIRTAZAPINE TAB 15 MG TAB PO SCH (20:41)
[2020-05-26] MEDS: AZTREONAM 1,000 MG in DEXTROSE 5% 100 ML IV SCH ×2 (00:08→08:52)
[2020-05-26] MEDS: VANCOMYCIN HCL 750 MG in SODIUM CHLORIDE 0.9% 250 ML IV SCH ×2 (01:10→12:29)
[2020-05-26] MEDS: AZITHROMYCIN 500 MG in DEXTROSE 5% 250 ML IV SCH (01:11)
[2020-05-26] MEDS: ALBUT/IPRATROP 3MG/0.5MG NEB 3 ML VIAL NEB SCH ×2 (07:07→11:04)
[2020-05-26] MEDS: predniSONE 20 MG TAB PO SCH (08:53)
[2020-05-26] MEDS: THIAMINE HCL 100 MG TAB PO SCH (08:53)
[2020-05-26] MEDS: CHOLECALCIFEROL 1,000 UNITS 25 MCG TAB PO SCH (08:53)
[2020-05-26] MEDS: guaiFENesin 600 MG TABCR PO SCH (08:54)
[2020-05-26] MEDS: NICOTINE 14 MG/24 HR PATCH TD SCH (08:54)
[2020-05-26] MEDS: MULTIVITAMIN CHEWABLE TAB PO SCH (08:54)
[2020-05-26] MEDS: FLUTICASONE/VILANTEROL 100/25MCG 14 PUFFS/INHALER INH SCH (08:55)
[2020-05-26] MEDS: ENOXAPARIN INJ 30 MG/0.3 ML SYR SQ SCH (09:00)
--- NOTE | 2020-05-26 17:48 | Discharge Summary ---
Date of Service May 26, 2020 Admission HPI Per Admitting Provider The patient is a 64-year-old female with a past medical history including squamous cell lung cancer, status post right lung lobectomy, COPD, acute bronchitis, thiamine deficiency, cerumen impaction, vitamin B12 deficiency, depression, dilation of thoracic aorta, chronic reflux esophagitis, bilateral kidney stones and history of respiratory distress. The patient presents to the emergency department with acute onset of shortness of breath this morning that has worsened throughout the day. She typically does have mucus that she brings up, without significant difference today. She denies any recent travels or sick exposures. Her COVID-19 test was negative in the ED. Principal Diagnosis aspiration pneumonia dysphagia copd Discharge Exam The patient appeared chronically ill markedly thin and underweight with a BMI of 14 Vital signs as documented. Lungs are diminished with coarse basilar rhonchi Cardiac exam, Rhythm is regular.. No murmurs, rubs or gallops. Abdominal exam reveals normal bowel sounds, soft non tender, no masses Extremities are nonedematous and both pedal pulses are normal. Neurologic exam is alert and oriented, no focal loss of strength or sensation Skin is without bruises or rashes Psychologically is without concerns for anxiety or depression. Discharge Data Allergies Allergy/AdvReac Type Severity Reaction Status Date / Time Bactrim Allergy Severe TONGUE Verified 10/29/17 10:17 SWELLING sulfamethoxazole Allergy Severe TONGUE Verified 05/22/20 22:18 SWELLING trimethoprim Allergy Severe TONGUE Verified 05/22/20 22:18 SWELLING aspirin Allergy Unknown SEVERE Verified 05/22/20 22:18 STOMACH CRAMPING Penicillins Allergy Unknown Unknown Verified 05/22/20 22:18 Consultations 05/22/20 23:23 ED Decision to Admit Stat 05/23/20 01:31 Consult Case Management - Discharge Planning Routine Ordered Studies 05/22/20 21:05 CT angio chest PE protocol Urgent 05/22/20 21:17 US point of care ultrasound Stat 05/24/20 13:00 FL video swallow Routine Hospital Course (1) Acute exacerbation of chronic obstructive pulmonary disease: Acute on chronic respiratory failure with hypoxia, pneumonia with a history of right lung lobectomy for squamous cell lung cancer. Duonebs every 4 hours while awake and every 2 hours when necessary. Vancomycin IV, aztreonam IV and azithromycin IV. It is noted patient has a positive MRSA nasal swab she is also failed 3 rounds of outpatient antibiotics and steroids which may lead to this being a resistant organism however patient also has an aspiration risk and the location of the infiltrate is consistent with possible aspiration pneumonia. Patient did see speech therapy in February 2019 at which time she had a swallowing dysfunction was recommended for strengthening and was given information for maneuvers to avoid aspiration We will go home on a steroid taper and cefdinir therapy with strict instructions about swallowing and the safety she can do to try to help reduce aspiration Continue inhaler fluticasone/Vilanterol Guaifenesin extended release . every 12 hours flutter valve Nasal cannula oxygen, titrate to keep pulse ox around 92-94% Advised tobacco cessation (2) Pneumonia: Patient home on cefdinir concern for aspiration pneumonia (3) S/P lobectomy of lung: See above (4) Squamous cell carcinoma of lung: CT scan of the chest with angiography 05/22/2020 IMPRESSION: 1. There is no evidence of acute pulmonary embolus in the left main, lobar, or segmental pulmonary arteries. 2. There is a small amount of chronic thrombus within the distal right main pulmonary artery. This has decreased in size as compared to study dating back to 2014. 3. Advanced emphysema with postoperative change from right-sided pneumonectomy. 4. There is dense airspace consolidation at the left lung base consistent with pneumonia/aspiration pneumonitis. Radiographic follow-up to resolution is recommended. 5. Trace left pleural effusion. 6. A 7 mm pleural-based nodule at the left lung base is unchanged from prior studies. (5) Depression: Continue mirtazapine (6) Hypomagnesemia: Replete (7) Dysphagia: Previously had speech evaluation February 24, 2019 as this is in the right lower lobe consideration of recurrent aspiration Speech therapy confirms persistent aspiration on video swallow we will continue to reinforce good swallowing habits and techniques (8) Protein-calorie malnutrition, severe: Total Time Total Time Spent Total Time Spent (In Minutes): It required greater than 30 minutes to prepare this patient for discharge Discharge Plan Discharge Items Patient Disposition: Home - Self-Care Reason For Visit: COPD EX, PNEUMONIA Discharge Diagnosis: aspiration pneumonia copd Activity: Resume your previous activity Non-emergency contact: Primary Care Provider Call non-emergency contact if: you have any medication questions, your symptoms worsen and your temperature is above 101 Follow-up/Referrals: Temitope Shaikh MD [Primary Care Provider] - 06/01/20 11:30 am (If you need to change this appointment, please call [phone].) Diet: Regular Diet Comment: aspiration precautions Addtl Attending Provider Instructions: please rest and recover, you pneumonia maybe from aspiration from your swallowing dysfunction, please pay extra attention to your swallowing, eating small bites, or liquid food and clearing your mouth completely between bites, allow a short time to allow your nutrition to pass before adding more food. Pending Studies at Discharge: No Stand-Alone Forms: My [facility], Smoking Cessation Medications and DC Order Prescriptions: New prednisone 10 mg tablet 10 mg PO UD Qty: 40 RF: 0 cefdinir 300 mg capsule 300 mg PO BID 5 Days Qty: 10 RF: 0 Continued Spiriva with HandiHaler 18 mcg capsule, w/inhalation device 1 cap INH DAILY Qty: 30 RF: 5 budesonide-formoterol [Symbicort] 160-4.5 mcg/actuation HFA aerosol inhaler 2 puff inhalation BID Qty: 10.2 RF: 5 mirtazapine 15 mg tablet 7.5 mg PO HS Qty: 30 RF: 5 albuterol sulfate 2.5 mg /3 mL (0.083 %) solution for nebulization 2.5 mg INH QID PRN (Reason: Shortness Of Breath Or Wheezing) RF: 0 albuterol sulfate [ProAir HFA] 90 mcg/actuation HFA aerosol inhaler 2 puffs INH .Q4-6HRS PRN (Reason: Shortness Of Breath Or Wheezing) RF: 0 cholecalciferol (vitamin D3) [Vitamin D3] 25 mcg (1,000 unit) Capsule 25 mcg PO DAILY RF: 0 Women's One Daily 18 mg iron-400 mcg-500 mg Ca Tablet 1 tab PO DAILY RF: 0 Discharge Orders: Discharge Order (Routine); Ordered 05/26/20 Ordered By: Choco Lugo Admission Data Admit Date/Time: 05/22/20 23:57 Attending Provider: Choco Lugo Admit Provider: Kwasi Giordano Primary Care Provider: Temitope Shaikh Other Providers: Kwasi Giordano Other Interventions: Discharge Summary Assessment (RN) Last Done: 05/26/20 13:39 Coding Level of Care Code D/C Day Management >30 mins Diagnoses Acute exacerbation of chronic obstructive pulmonary disease J44.1 Pneumonia J18.9 Laterality: left Lung location: lower lobe of lung Pneumonia type: due to unspecified organism S/P lobectomy of lung Z90.2 Squamous cell carcinoma of lung C34.90 Depression F32.9 Hypomagnesemia E83.42 Dysphagia R13.10 Protein-calorie malnutrition, severe E43
[2020-05-27] MEDS ORDERED: VANCOMYCIN TROUGH ONE (07:30)
== END 2020-05-26 14:55 | disposition home or self-care (01) | DRG 177 ==
LOC: ED 20:25 → SUATTDRO 23:57 → 2N 23:57

== ENCOUNTER 2021-01-14 19:48 | Inpatient (IN) ==
[2021-01-14] MEDS ORDERED: ALBUT/IPRATROP 3MG/0.5MG NEB 3 ML VIAL NEB ONE (20:28)
--- NOTE | 2021-01-14 22:03 | History & Physical Report ---
Date of Service January 14, 2021 Assessment & Plan (1) Acute exacerbation of chronic obstructive pulmonary disease: Plan: Mrs. Posadas is a 65 yo woman with a PMHx of COPD who presents for acute worsening of her breathing. - azithromycin 500mg IV daily - methylprednisolone 40mg IV q8; taper as breathing improves - duonebs QID - Mucinex BID scheduled - continue home Spiriva, Symbicort and Perforomist - etiology of COPD exacerbation: likely due to acute viral URI + ongoing inhalation of lung irritant (tobacco smoke). (2) Squamous cell carcinoma of lung: Plan: - history of - s/p right pneumonectomy - follows with Dr. Lucero who orders her yearly surveillance CT scans (3) Tobacco abuse: Plan: - smokes 1 pack per day - nicoderm patch ordered - recommend cessation (4) Leukocytosis: Plan: - WBC mildly elevated to 10.6 - may be due to infection vs. reactive - on azithromycin as above - trend CBC (5) Hyponatremia: Plan: - Na level mildly low at 135 - history of SIADH - repeat BMP in am - fluid restrict if not corrected Diet: Regular (patient has history of esophageal dysmotility but found not to aspirate) Dvt ppx: Lovenox Dispo: Med/tele (needs continuous pulse oximetry) Code: Full, I discussed with patient History of Present Illness Primary Care Provider: Temitope Shaikh MD Mrs. Posadas is a 65 yo woman with a PMHx of COPD here today for acute on chronic breathing trouble. Of note, she was seen earlier in our emergency department, diagnosed with a COPD exacerbation and sent home with a 10 day course of doxycycline and prednisone. She retuned due to ongoing dyspnea. She reports have URI symptoms for the past two weeks (congestion, intermittent productive cough). She has had to use her albuterol rescue inhaler about 3 times per day. She denies fever, chest pain, abdominal pain, nausea/vomiting, diarrhea or urinary symptoms. She had a history of squamous cell carcinoma of the right lung -fortunately this was detected early and she her right lung removed in 2008 at [facility]. She is a long-time tobacco smoker - she did quit for a period fo 2 years after her right lung pneumonectomy - however she started up again due to "frustration." She currently smokes one pack per day. She is on 3L of oxygen via [place] 24 hours per day at baseline for her COPD. She is compliant with her home inhaler regimen (and uses appropriately) She was fully vaccinated against COVID 19 in June 2020; no known covid 19 positive contacts. She does drink hard liquor, 2-3 times per week. In the ED, she was afebrile, with normal HR and blood pressure. Her O2 saturation was 98% on 4L via NC. Her WBC was elevated to 10.9 with neutrophil predom. Her CMP was normal, with the exception of a mildly low Na of 135. Her trop was undetectable. COVID 19/ Flu A and B neg. Blood cultures pending. Her CXR showed no active disease. Chest CTA ruled out acute PE; all other findings were chronic and/or unchanged. She was given a duoneb treatment. Allergies Allergy/AdvReac Type Severity Reaction Status Date / Time Bactrim Allergy Severe TONGUE Verified 10/29/17 10:17 SWELLING sulfamethoxazole Allergy Severe TONGUE Verified 01/14/21 22:20 SWELLING trimethoprim Allergy Severe TONGUE Verified 01/14/21 22:20 SWELLING aspirin Allergy Unknown SEVERE Verified 01/14/21 22:20 STOMACH CRAMPING Penicillins Allergy Unknown Unknown Verified 01/14/21 22:20 Home Medications Medication Instructions Recorded Confirmed Type multivit-iron 18 mg-folic acid 400 1 tab PO DAILY 05/22/20 01/14/21 History mcg-calcium 500 mg-minerals tablet (Women's One Daily) guaifenesin 1,200 mg tablet, 1,200 mg PO BID #60 tab 06/01/20 01/14/21 Rx extended release 12 hr (Mucinex) albuterol sulfate 2.5 mg INH QID PRN #180 ml 06/26/20 01/14/21 Rx mirtazapine 15 mg tablet 7.5 mg PO HS #30 tab 10/03/20 01/14/21 Rx albuterol sulfate 90 mcg/actuation 2 puff INH .Q4-6HRS PRN #18 g 10/04/20 01/14/21 Rx aerosol inhaler (ProAir HFA) tiotropium bromide 18 mcg capsule 1 cap INH DAILY #30 puffs 10/04/20 01/14/21 Rx with inhalation device (Spiriva with HandiHaler) cefdinir 300 mg capsule 300 mg PO BID #20 cap 01/04/21 01/14/21 Rx budesonide 1 mg/2 mL suspension 1 mg INHALATION DAILY #30 vial 01/12/21 01/14/21 Rx for nebulization formoterol fumarate 20 mcg/2 mL 2 ml INHALATION Q12H #120 ml 01/12/21 01/14/21 Rx solution for nebulization (Perforomist) prednisone 20 mg tablet 40 mg PO DAILY 4 Days #8 tab 01/14/21 01/14/21 Rx Past Med/Surg History Medical History Abnormal CT scan, gastrointestinal tract Alcoholism B12 deficiency Bilateral kidney stones Chronic obstructive pulmonary disease Chronic reflux esophagitis Chronic respiratory failure Dilation of thoracic aorta Influenza Lung cancer Osteoporosis Palliative care encounter Pneumonia Protein calorie malnutrition SIADH (syndrome of inappropriate ADH production) Squamous cell carcinoma of lung Unspecified cirrhosis of liver Surgical History S/P lobectomy of lung Family History Father Aortic aneurysm Hypertension Mother COPD (chronic obstructive pulmonary disease) CHF (congestive heart failure) Osteoporosis Renal failure Grandmother Diabetes Grandfather Skin cancer Other Myocardial infarction No pertinent family history in first degree relatives Denies family history of Ovarian cancer Prostate cancer Breast cancer Colorectal cancer Social History Smoking Status: Current every day smoker Tobacco Type: Cigarettes Cigarettes Per Day: 20; Second Hand Exposure: Yes; Hx Alcohol Use: Yes Alcohol type: hard liquor Alcohol Intake Frequency: 2-3 x/Week Alcohol Intake Frequency Comment: once a week Hx Substance Use: No Preferred Language: [place] Communication Ability: Effective Visual Impairment: No Limitations Medical Insurance Coder Required: No Beliefs That Will Affect Care: None marital status: Life Partner Current Living Situation: Spouse current occupational status: disabled How many Children do You have: 3 Other Information That Helps Us Care for You: No Feels Safe at Home: Yes Safety Concerns: Feels Safe At This Time Dental Care, Regularly: No Physical Activity Frequency: Does not Exercise Seatbelt Use: always Sunscreen Use: No Assistive Devices: Denture - Upper, Glasses and Oxygen - Continuous Review of Systems Review of Systems: All systems reviewed & are unremarkable except as noted in HPI & below Physical Exam Constitutional: + thin, cooperative and comfortable; no acute distress Eyes: + anicteric sclerae ENMT: external ear and nose normal, oropharynx normal Neck: trachea midline Respiratory: normal respiratory effort; no labored breathing Auscultation: + rhonchi and + wheezes Cardiovascular: RRR, no murmur, no edema Heart Sounds: normal S1 and normal S2 Extremities: no pedal edema Gastrointestinal (Abdomen): normal bowel sounds, soft, nontender, no hepatosplenomegaly Musculoskeletal: Head/Neck/Chest: normocephalic and head atraumatic Skin: no rashes, warm and dry Neurologic: moves all extremities Psychiatric: A+Ox3, euthymic affect Results & Data Results & Data ([facility]) Vital Signs (Past 12 Hours) Vital Signs Temp Pulse Pulse Resp BP Pulse Ox 01/14/21 20:41 98 H 12 98 01/14/21 19:49 36.9 C 110 H 20 124/73 91 01/14/21 19:48 24 95 Supervising Physician Co-Signing Physician Notes Attending addendum: I have physically seen this patient, have supervised the medical residents activities, and agree with the H&P unless as otherwise noted. Assessment and Plan: COPD exacerbation/history right lung pneumonectomy/squamous cell lung CA- Methylprednisolone 40 mg IV every 8 hours Duonebs every 4 hours while awake and every 2 hours when necessary. Guaifenesin extended release 1200 mg p.o. twice daily Azithromycin 500 mg IV daily Advised tobacco cessation NicoDerm patch Remaining orders and notations as noted Resident Activity Tracking Resident Involvement: Resident Care Provided Care Provided: Adult Hospital Medicine
--- NOTE | 2021-01-14 22:09 | Emergency Department Note ---
Impression & Plan Acute exacerbation of chronic obstructive pulmonary disease, Squamous cell carcinoma of lung, S/P lobectomy of lung ED Provider Note Provider: Carlos Hinojosa MD DATE OF SERVICE: 01/14/2021 CHIEF COMPLAINT: Shortness of breath HISTORY OF PRESENT ILLNESS: Patient is a 65-year-old female history of lung disease status post right lobectomy, and COPD presenting here today complaining of worsening shortness of breath. Was seen here within the last several hours by my colleague. Had blood work, EKG, x-ray at that time diagnosed with a COPD exacerbation and started on steroids. Evidently on the way home just a few miles appear the patient became very short of breath in the car and they had a turnaround to come back. Patient states that her breathing worsen significantly again and the nebulizers do not seem to be lasting that long. She states she does not feel comfortable at home and is scared to. Patient denies significant chest pain or leg swelling. REVIEW OF SYSTEMS: A total of 10 review of systems was obtained and negative except as stated above in the HPI. PAST MEDICAL HISTORY: As noted above MEDICATIONS: Reviewed home medications includes chronic 2 L of oxygen SOCIAL HISTORY: Smoker, lives at home with PHYSICAL EXAM: GENERAL: alert and oriented in no acute distress on stretcher however fatigued appearing, thin in appearance Head: normocephalic and atraumatic EYES: No injection, discharge or icterus. NECK: Trachea midline. Supple. ENT: Mucous membranes pink and moist. LUNGS: Airway patent. No retractions but mild tachypnea Breath sounds clear diminished right-sided breath sounds with faint wheeze on the left. HEART: Regular rate and rhythm. No chest wall tenderness ABDOMEN: Soft and non-tender, without guarding or rebound. SKIN: Acyanotic, warm, dry, without rashes EXTREMITIES: Without swelling, tenderness or deformity NEUROLOGICAL: No focal deficits. No aphasia. No facial droop or slurred speech. EK beats per in sinus tachycardia. No PVC or PAC. Nonspecific inferior lateral T wave inversion. QTC 475. CONTINUOUS CARDIAC MONITORING: was ordered and showed a heart rate of 90s-120s bpm in normal sinus rhythm and sinus tachycardia Patient's laboratory studies and imaging reviewed. Differential includes Reactive airway disease, pneumonia, pneumothorax, COPD, CHF, infections, cardiac ischemia, pulmonary embolism, musculoskeletal, gastrointestinal, as well as other pathologies. IMPRESSION/MEDICAL DECISION MAKING: Patient's prior work-up earlier today is noted. Repeat EKG and troponin were sent which are reassuring she is not have active chest pain. Significant history. Not significantly wheezy but given her complaints trial a DuoNeb. Already received steroids recently as well as doxycycline. Covid test earlier was negative. CT of the chest was completed to exclude occult PE given her tachycardia and shortness of breath and report as below did not identify this. Patient and state they do not feel safe going home and she is having some increased oxygen usage at this time. She does appear anxious about this. Likely COPD exacerbation and discussed with her further care at the hospital which she wished for. The hospitalist was contacted. DIAGNOSIS: COPD exacerbation, shortness of breath DISPOSITION: Hospitalist will evaluate Patient was agreeable with this plan. Preliminary Findings Only See Final Report For Complete Findings CTA CHEST: Comparison: 05/22/2020 Status post remote right pneumonectomy with shift of heart and mediastinum into the right hemithorax. Chronic postoperative fluid collection or pleural effusion within right hemithorax with rim calcification is unchanged. Hyperinflated left lung which extends over into the right chest anteriorly. Emphysema. Stable pleural parenchymal scar in the portion of the lung which appears to be the lingula (series 3, image 49). Stable 6 mm left lower lobe nodule. No acute PE. Ectatic ascending thoracic aorta measuring 3.8 cm in diameter. No dissection. Atherosclerotic calcification. No pathologic adenopathy within the chest. 7 mm coarse calcification within the pancreatic body is again visualized. Calcified granuloma within the spleen is again visualized. Steven Jean MD Past Med/Surg History Medical History Abnormal CT scan, gastrointestinal tract Alcoholism B12 deficiency Bilateral kidney stones Chronic obstructive pulmonary disease Chronic reflux esophagitis Chronic respiratory failure Dilation of thoracic aorta Influenza Lung cancer Osteoporosis Palliative care encounter Pneumonia Protein calorie malnutrition SIADH (syndrome of inappropriate ADH production) Squamous cell carcinoma of lung Unspecified cirrhosis of liver Surgical History S/P lobectomy of lung Family History Father Aortic aneurysm Hypertension Mother COPD (chronic obstructive pulmonary disease) CHF (congestive heart failure) Osteoporosis Renal failure Grandmother Diabetes Grandfather Skin cancer Other Myocardial infarction No pertinent family history in first degree relatives Denies family history of Ovarian cancer Prostate cancer Breast cancer Colorectal cancer Social History Smoking Status: Current every day smoker Tobacco Type: Cigarettes Cigarettes Per Day: 8; Second Hand Exposure: Yes; Hx Alcohol Use: Yes Alcohol type: hard liquor Alcohol Intake Frequency: 2-3 x/Week Alcohol Intake Frequency Comment: once a week Hx Substance Use: No Preferred Language: Albanian Communication Ability: Effective Visual Impairment: No Limitations Blow Pit Operator Required: No Beliefs That Will Affect Care: None marital status: Life Partner Current Living Situation: Significant Other current occupational status: disabled How many Children do You have: 3 Feels Safe at Home: Yes Dental Care, Regularly: No Physical Activity Frequency: Does not Exercise Seatbelt Use: always Sunscreen Use: No Assistive Devices: Oxygen - Continuous Allergies Allergies Allergy/AdvReac Type Severity Reaction Status Date / Time Bactrim Allergy Severe TONGUE Verified 10/29/17 10:17 SWELLING sulfamethoxazole Allergy Severe TONGUE Verified 01/14/21 22:20 SWELLING trimethoprim Allergy Severe TONGUE Verified 01/14/21 22:20 SWELLING aspirin Allergy Unknown SEVERE Verified 01/14/21 22:20 STOMACH CRAMPING Penicillins Allergy Unknown Unknown Verified 01/14/21 22:20 Home Meds Home Medications Medication Instructions Recorded Confirmed multivit-iron 18 mg-folic acid 400 1 tab PO DAILY 05/22/20 01/14/21 mcg-calcium 500 mg-minerals tablet (Women's One Daily) Previous Rx's Medication Instructions Recorded guaifenesin 1,200 mg tablet, 1,200 mg PO BID #60 tab 06/01/20 extended release 12 hr (Mucinex) albuterol sulfate 2.5 mg INH QID PRN #180 ml 06/26/20 mirtazapine 15 mg tablet 7.5 mg PO HS #30 tab 10/03/20 albuterol sulfate 90 mcg/actuation 2 puff INH .Q4-6HRS PRN #18 g 10/04/20 aerosol inhaler (ProAir HFA) tiotropium bromide 18 mcg capsule 1 cap INH DAILY #30 puffs 10/04/20 with inhalation device (Spiriva with HandiHaler) cefdinir 300 mg capsule 300 mg PO BID #20 cap 01/04/21 budesonide 1 mg/2 mL suspension 1 mg INHALATION DAILY #30 vial 01/12/21 for nebulization formoterol fumarate 20 mcg/2 mL 2 ml INHALATION Q12H #120 ml 01/12/21 solution for nebulization (Perforomist) prednisone 20 mg tablet 40 mg PO DAILY 4 Days #8 tab 01/14/21 Results & Data (ED) Vital Signs Vital Signs - 24 hr 01/14/21 19:48 01/14/21 19:49 01/14/21 20:04 Temperature 36.9 C Temperature Source Temporal Artery Scan Pulse Rate 110 H 103 H Pulse Rate [Apical] Pulse Rate from SpO2 Sensor 103 H Respiratory Rate 24 20 25 H Respiratory Effort / Characteristics Labored Respiratory Depth Normal Normal Respiratory Pattern Regular Blood Pressure 124/73 Blood Pressure Mean 90 Pulse Oximetry 95 91 96 Oxygen Delivery Method Nasal Cannula Nasal Cannula Oxygen Flow Rate 4 4 Fraction of Inspired Oxygen 97 Sepsis Recent Fever Within 48 Hours No Sepsis New/Unexplained Change in Mental Status N/A Sepsis Action Taken by Nursing No Action Required 01/14/21 20:15 01/14/21 20:30 01/14/21 20:41 Temperature Temperature Source Pulse Rate 100 H 100 H Pulse Rate [Apical] 98 H Pulse Rate from SpO2 Sensor 101 H 100 H Respiratory Rate 32 H 22 12 Respiratory Effort / Characteristics Non-Labored Spontaneous Respiratory Depth Respiratory Pattern Blood Pressure Blood Pressure Mean Pulse Oximetry 94 96 98 Oxygen Delivery Method Nasal Cannula Oxygen Flow Rate 4 Fraction of Inspired Oxygen Sepsis Recent Fever Within 48 Hours Sepsis New/Unexplained Change in Mental Status Sepsis Action Taken by Nursing 01/14/21 20:45 01/14/21 21:00 01/14/21 21:15 Temperature Temperature Source Pulse Rate 98 H 102 H 103 H Pulse Rate [Apical] Pulse Rate from SpO2 Sensor 98 H 102 H 103 H Respiratory Rate 20 20 24 Respiratory Effort / Characteristics Respiratory Depth Respiratory Pattern Blood Pressure Blood Pressure Mean Pulse Oximetry 99 99 99 Oxygen Delivery Method Oxygen Flow Rate Fraction of Inspired Oxygen Sepsis Recent Fever Within 48 Hours Sepsis New/Unexplained Change in Mental Status Sepsis Action Taken by Nursing 01/14/21 21:30 01/14/21 21:45 01/14/21 22:00 Temperature Temperature Source Pulse Rate 108 H 113 H 117 H Pulse Rate [Apical] Pulse Rate from SpO2 Sensor 108 H 114 H Respiratory Rate 25 H 27 H 14 Respiratory Effort / Characteristics Respiratory Depth Respiratory Pattern Blood Pressure Blood Pressure Mean Pulse Oximetry 99 98 Oxygen Delivery Method Oxygen Flow Rate Fraction of Inspired Oxygen Sepsis Recent Fever Within 48 Hours Sepsis New/Unexplained Change in Mental Status Sepsis Action Taken by Nursing 01/14/21 22:15 Temperature Temperature Source Pulse Rate 118 H Pulse Rate [Apical] Pulse Rate from SpO2 Sensor 118 H Respiratory Rate 26 H Respiratory Effort / Characteristics Respiratory Depth Respiratory Pattern Blood Pressure 101/64 Blood Pressure Mean 76 Pulse Oximetry 98 Oxygen Delivery Method Oxygen Flow Rate Fraction of Inspired Oxygen Sepsis Recent Fever Within 48 Hours Sepsis New/Unexplained Change in Mental Status Sepsis Action Taken by Nursing Laboratory Data Lab Results 01/14/21 Range/Units 22:00 Troponin I < 0.015 (0-0.045) ng/ml Administered Medications Discontinued Medications Albuterol (Albut/Ipratrop 3mg/0.5mg Neb 3 Ml Vial) 12 ml NEB ONE ONE Stop: 01/14/21 20:29 Last Admin: 01/14/21 20:36 Dose: 12 ml Documented by: [id number] Ioversol (Optiray 320 125ml) 120 ml IV ONCE ONE Stop: 01/14/21 22:31 Last Admin: 01/14/21 22:34 Dose: 120 ml Documented by: [id number] Discharge Plan Visit Data Chief Complaint: Shortness of Breath/Dyspnea Stated Complaint: SEVERE SOB ED Provider: Carlos Hinojosa Discharge Problem: Acute exacerbation of chronic obstructive pulmonary disease, Squamous cell carcinoma of lung, S/P lobectomy of lung Patient Disposition: Admitted As Inpatient Prescriptions Prescriptions: No Action mirtazapine 15 mg tablet 7.5 mg PO HS Qty: 30 RF: 5 budesonide 1 mg/2 mL suspension for nebulization 1 mg inhalation DAILY Qty: 30 RF: 11 formoterol fumarate [Perforomist] 20 mcg/2 mL solution for nebulization 2 ml inhalation Q12H Qty: 120 RF: 11 Mucinex 1,200 mg tablet extended release 12hr 1,200 mg PO BID Qty: 60 RF: 0 Spiriva with HandiHaler 18 mcg capsule, w/inhalation device 1 cap INH DAILY Qty: 30 RF: 5 albuterol sulfate [ProAir HFA] 90 mcg/actuation HFA aerosol inhaler 2 puff INH .Q4-6HRS PRN (Reason: Shortness Of Breath Or Wheezing) Qty: 18 RF: 6 cefdinir 300 mg capsule 300 mg PO BID Qty: 20 RF: 2 albuterol sulfate 2.5 mg /3 mL (0.083 %) solution for nebulization 2.5 mg INH QID PRN (Reason: Shortness Of Breath Or Wheezing) Qty: 180 RF: 8 Women's One Daily 18 mg iron-400 mcg-500 mg Ca Tablet 1 tab PO DAILY RF: 0 prednisone 20 mg tablet 40 mg PO DAILY 4 Days Qty: 8 RF: 0 Referrals Referrals: Temitope Shaikh MD [Primary Care Provider] -
[2021-01-14] MEDS ORDERED: OPTIRAY 320 125ml IV ONE (22:30)
[2021-01-15] MEDS ORDERED: POLYETHYLENE (MIRALAX) 17 GM PACK PO PRN (02:44)
[2021-01-15] MEDS ORDERED: ACETAMINOPHEN 325 MG TAB PO PRN (02:44)
[2021-01-15] MEDS ORDERED: ONDANSETRON INJ 2 MG/ML 2 ML VIAL IV PRN (02:44)
--- NOTE | 2021-01-15 04:36 | Billing Data ---
Date of Service January 15, 2021 Coding Level of Care Code 43726 Initial Inpt Care Lvl 3
[2021-01-15] MEDS: AZITHROMYCIN 500 MG in DEXTROSE 5% 250 ML IV SCH (05:08)
[2021-01-15] MEDS: methylPREDNISolone 40 MG in SYRINGE 0 ML IV SCH ×2 (05:08→14:23)
[2021-01-15] MEDS ORDERED: FORMOTEROL 20 MCG/2 ML VIAL INH SCH (07:00)
[2021-01-15] MEDS: FORMOTEROL 20 MCG/2 ML VIAL INH SCH ×2 (07:03→19:44)
[2021-01-15] MEDS: ALBUT/IPRATROP 3MG/0.5MG NEB 3 ML VIAL NEB SCH ×4 (07:05→19:44)
[2021-01-15] MEDS: NICOTINE 14 MG/24 HR PATCH TD SCH (07:46)
[2021-01-15] MEDS: FLUTICASONE/VILANTEROL 200/25MCG 14 PUFFS/INHALER INH SCH (07:47)
[2021-01-15] MEDS: UMECLIDINIUM BROMIDE 62.5MCG/BLISTER 7 PUFFS/INHALER INH SCH (07:47)
[2021-01-15] MEDS: guaiFENesin 600 MG TABCR PO SCH ×2 (07:48→21:48)
[2021-01-15] MEDS: ENOXAPARIN INJ 30 MG/0.3 ML SYR SQ SCH (07:49)
[2021-01-15 08:41] LABS: Basophils # (auto) 0.01 K/uL (0-0.2); Hematocrit (blood only) 36.6 % (37-47); Hemoglobin 12.3 g/dL (12.0-16.0); Immature Granulocytes # (auto) 0.09 K/uL (0.00-0.02); Immature Granulocytes % (auto) 0.3 %; Lymphocytes # (auto) 0.34 K/uL (1.2-3.4); Lymphocytes % (auto) 1.3 %; Mean Corpuscular Hemoglobin 33.1 pg (25-34); Mean Corpuscular Hgb Conc 33.6 g/dL (32-36); Mean Corpuscular Volume 98.4 fL (80-100); Mean Platelet Volume 9.5 fL (7.4-10.4); Monocytes # (auto) 0.36 K/uL (0.11-0.59); Monocytes % (auto) 1.3 %; Neutrophils # (auto) 26.29 K/uL (1.4-6.5); Neutrophils % (auto) 97.1 %; Platelet Count 176 K/uL (130-400); RDW Coefficient of Variation 13.9 % (11.5-14.5); RDW Standard Deviation 49.8 fL (36.4-46.3); Red Blood Count 3.72 M/uL (4.2-5.4); White Blood Count 27.09 K/uL (4.8-10.8)
[2021-01-15 08:45] LABS: BUN Creatinine Ratio 20.8 (10-20); Calcium 8.8 mg/dl (8.5-10.1); Creatinine Clr Calc Pharmacy 64.1 ml/min; Est GFR (African American) 116.9 ml/min; Est GFR (Non-African American) 100.9 ml/min; Potassium 3.7 mmol/L (3.5-5.1)
--- NOTE | 2021-01-15 08:45 | CT Scan Report ---
CT ANGIOGRAPHY OF THE CHEST, PULMONARY EMBOLUS PROTOCOL CLINICAL HISTORY: Shortness of breath, worsened hypoxia. History of lung cancer. Evaluate for pulmona ry embolus. COMPARISON STUDY: Chest CT May 22, 2020. Chest radiograph January 14, 2021. TECHNIQUE: Following IV administration of 120 mL of Optiray, helical axial images of the chest were o btained utilizing the pulmonary embolus protocol. Maximal intensity projections and sagittal and cor onal reformats were viewed on an independent 3D workstation. IV contrast was administered without co mplication. Automated exposure control was utilized for the study. A dose lowering technique was ut ilized adhering to the principles of ALARA. CT DOSE: 267.62 mGy.cm FINDINGS: No pulmonary emboli are identified. There are stable postoperative findings following righ t pneumonectomy with fluid within the right pneumonectomy cavity and pleural thickening. This is unch anged. No enlarged thoracic lymph nodes are noted. Mediastinal shift is unchanged. Dilatation of the ascending aorta, measuring 3.8 cm is unchanged. There is no thoracic aortic dissection. No pericardia l effusion. Lingular opacity is unchanged. This favors scarring. There are severe emphysema. A 5 mm i rregular left lower lobe nodule on image 208 of 326 is noted. Minimal airspace opacities within the l eft lower lobe are present. There is no pneumothorax. No suspicious lesions are identified within vis ualized portions of the bony thorax. Multiple old right-sided rib deformities are present. IMPRESSION: 1. No pulmonary emboli identified. 2. Stable postoperative findings following right pneumonectomy. 3. Minimal airspace opacity within the left lower lobe. 4. Severe emphysema. 5. 5 mm irregular nodule within the left lower lobe. This is indeterminate and may reflect scarring. However, a follow-up chest CT in 6 months to ensure stability is recommended. ACT 112: Negative or not required by law. Electronically signed by: Rao Carrizales M.D. 01/15/2021 8:44 AM
--- NOTE | 2021-01-15 11:10 | Electrocardiogram Report ---
Test Reason : Blood Pressure : / mmHG Vent. Rate : 116 BPM Atrial Rate : 116 BPM P-R Int : 122 ms QRS Dur : 068 ms QT Int : 342 ms P-R-T Axes : 062 056 191 degrees QTc Int : 475 ms Poor data quality, interpretation may be adversely affected Sinus tachycardia Right atrial enlargement Nonspecific T wave abnormality Abnormal ECG When compared with ECG of 14-JAN-2021 15:19, (unconfirmed) Nonspecific T wave abnormality now evident in Inferior leads Nonspecific T wave abnormality now evident in Anterolateral leads Confirmed by Ryan Vargas ([id number]) on 01/15/2021 11:09:41 AM Referred By: REFERRED SELF Confirmed By:Kofi Vargas
[2021-01-15] MEDS: cefTRIAXone SODIUM 1,000 MG in DEXTROSE 5% 50 ML IV SCH (20:01)
--- NOTE | 2021-01-15 21:05 | Hospitalist Progress Note ---
Date of Service January 15, 2021 Assessment & Plan (1) Acute exacerbation of chronic obstructive pulmonary disease: Plan: Mrs. Posadas is a 65 yo woman with a PMHx of COPD who presents for acute worsening of her breathing. - azithromycin 500mg IV daily -Concern over possibe bacteremia -will add ceftriaxone and get procal. patient reports no anaphylaxis (inflammation, difficulty breathing) with penicllin. - will hold methylprednisolone 40mg IV q8; taper as breathing improves - duonebs QID - Mucinex BID scheduled - continue home Spiriva, Symbicort and Perforomist - etiology of COPD exacerbation: likely due to acute viral URI + ongoing inhalation of lung irritant (tobacco smoke). (2) Squamous cell carcinoma of lung: Plan: - history of - s/p right pneumonectomy - follows with Dr. Lucero who orders her yearly surveillance CT scans (3) Tobacco abuse: Plan: - smokes 1 pack per day - nicoderm patch ordered - recommend cessation (4) Leukocytosis: Plan: - WBC elevated to 27 - may be due to infection vs. reactive - on azithromycin as above -now will add ceftriaxone, awaiting for procal - trend CBC (5) Hyponatremia: Plan: - Na level mildly low at 135 - history of SIADH - repeat BMP in am - fluid restrict if not corrected Diet: Regular (patient has history of esophageal dysmotility but found not to aspirate) Dvt ppx: Lovenox Dispo: Med/tele (needs continuous pulse oximetry) Code: Full, I discussed with patient Admission and Anticipated Discharge Date Admission Date: January 14, 2021 Subjective Patient reports coughing up more sputum today. She states she has improved from when she first vame in but continues to be SOB. She has been getting SOB just by going to the bathroom and back to bed. Review of Systems Review of Systems: All systems reviewed & are unremarkable except as noted in HPI & below Physical Exam Physical Exam: Constitutional:L + thin, cooperati ve and comfortable ; no acute distres s Eyes: + anicteric scler ae ENMT: external ear and n ose normal, oropha rynx normal Neck: trachea midline Respiratory: normal respiratory effort; no labore d breathing Auscu ltation: Clear B/L Cardiovascular:L RRR, no murmur, no edema Heart Soun ds: normal S1 and normal S2 Extremi ties: no pedal buffy ma Gastrointestinal ( Abdomen): normal bowel sound s, soft, nontender , no hepatosplenom egaly Musculoskeletal: Head/Neck/Chest: n ormocephalic and h ead atraumatic Skin: no rashes, warm an d dry Neurologic: moves all extremit ies Psychiatric: A+Ox3, euthymic af fect Results & Data Results & Data ([facility]) Vital Signs (Past 12 Hours) Vital Signs Temp Pulse Pulse Pulse Resp BP Pulse Ox 01/15/21 19:44 86 16 96 01/15/21 19:07 36.6 C 97 H 20 109/66 96 01/15/21 15:23 36.9 C 110 H 20 107/50 L 98 01/15/21 15:04 109 H 01/15/21 14:52 74 18 98 01/15/21 12:00 112 H 01/15/21 10:59 36.6 C 104 H 24 125/71 92 01/15/21 10:48 103 H 20 98 PG Care Time/CCT Total # of Minutes Spent Total Time Spent with Patient: Total time spent is greater than 50% in coordination of care (as documented) at patient's floor/unit and/or counseling patient: Coding Level of Care Code 04507 Subseq Hosp Care Lvl 3 Diagnoses Acute exacerbation of chronic obstructive pulmonary disease J44.1 Squamous cell carcinoma of lung C34.91 Laterality: right Tobacco abuse Z72.0 Leukocytosis D72.829 Hyponatremia E87.1 Time Spent (min) 35 (1) Squamous cell carcinoma of lung Laterality: right Qualified Code(s): C34.91 - Malignant neoplasm of unspecified part of right bronchus or lung
[2021-01-15] MEDS: MIRTAZAPINE TAB 15 MG TAB PO SCH (21:49)
[2021-01-16] MEDS ORDERED: BENZONATATE 100 MG CAPSULE PO PRN (04:23)
[2021-01-16] MEDS: AZITHROMYCIN 500 MG in DEXTROSE 5% 250 ML IV SCH (05:01)
[2021-01-16] MEDS: FORMOTEROL 20 MCG/2 ML VIAL INH SCH ×2 (06:23→19:27)
[2021-01-16] MEDS: ALBUT/IPRATROP 3MG/0.5MG NEB 3 ML VIAL NEB SCH ×4 (06:23→19:26)
[2021-01-16 07:42] LABS: Basophils # (auto) 0.01 K/uL (0-0.2); Basophils % (auto) 0.1 %; Hematocrit (blood only) 35.4 % (37-47); Hemoglobin 11.9 g/dL (12.0-16.0); Immature Granulocytes # (auto) 0.04 K/uL (0.00-0.02); Immature Granulocytes % (auto) 0.2 %; Lymphocytes # (auto) 0.42 K/uL (1.2-3.4); Lymphocytes % (auto) 2.2 %; Mean Corpuscular Hemoglobin 32.9 pg (25-34); Mean Corpuscular Hgb Conc 33.6 g/dL (32-36); Mean Corpuscular Volume 97.8 fL (80-100); Mean Platelet Volume 8.9 fL (7.4-10.4); Monocytes # (auto) 0.52 K/uL (0.11-0.59); Monocytes % (auto) 2.7 %; Neutrophils # (auto) 18.37 K/uL (1.4-6.5); Neutrophils % (auto) 94.8 %; Platelet Count 157 K/uL (130-400); RDW Coefficient of Variation 13.9 % (11.5-14.5); RDW Standard Deviation 49.4 fL (36.4-46.3); Red Blood Count 3.62 M/uL (4.2-5.4); White Blood Count 19.36 K/uL (4.8-10.8)
[2021-01-16] MEDS: NICOTINE 14 MG/24 HR PATCH TD SCH (07:49)
[2021-01-16] MEDS: guaiFENesin 600 MG TABCR PO SCH ×2 (07:50→20:56)
[2021-01-16] MEDS: ENOXAPARIN INJ 30 MG/0.3 ML SYR SQ SCH (07:50)
[2021-01-16] MEDS: UMECLIDINIUM BROMIDE 62.5MCG/BLISTER 7 PUFFS/INHALER INH SCH (07:51)
[2021-01-16] MEDS: FLUTICASONE/VILANTEROL 200/25MCG 14 PUFFS/INHALER INH SCH (07:51)
[2021-01-16 08:25] LABS: Albumin Level 2.7 gm/dl (3.4-5.0); BUN Creatinine Ratio 21.2 (10-20); Calcium 9.2 mg/dl (8.5-10.1); Creatinine Clr Calc Pharmacy 72.9 ml/min; Est GFR (African American) 124.8 ml/min; Est GFR (Non-African American) 107.7 ml/min; Magnesium 1.6 mg/dl (1.8-2.4); Potassium 3.7 mmol/L (3.5-5.1)
[2021-01-16 08:28] LABS: Albumin Globulin Ratio 0.9 (0.9-2); Globulin 3.1 gm/dl (2.5-4.0); Phosphorus 2.8 mg/dl (2.5-4.9); Total Protein 5.8 gm/dl (6.4-8.2)
[2021-01-16 08:56] LABS: Bilirubin,Total 0.4 mg/dl (0.2-1)
[2021-01-16] MEDS: cefTRIAXone SODIUM 1,000 MG in DEXTROSE 5% 50 ML IV SCH (19:38)
[2021-01-16] MEDS: MIRTAZAPINE TAB 15 MG TAB PO SCH (20:57)
[2021-01-16] MEDS: guaiFENesin/DEXTROM SYRUP 200MG/20MG 10ML UDC PO PRN (20:58)
--- NOTE | 2021-01-16 22:48 | Hospitalist Progress Note ---
Date of Service January 16, 2021 Assessment & Plan (1) Acute exacerbation of chronic obstructive pulmonary disease: Plan: Mrs. Posadas is a 65 yo woman with a PMHx of COPD who presents for acute worsening of her breathing. - azithromycin 500mg IV daily -Concern over possibe bacteremia -will add ceftriaxone and get procal. patient reports no anaphylaxis (inflammation, difficulty breathing) with penicllin. - will hold methylprednisolone 40mg IV q8; taper as breathing improves - duonebs QID - Mucinex BID scheduled - continue home Spiriva, Symbicort and Perforomist - etiology of COPD exacerbation: likely due to acute viral URI + ongoing inhalation of lung irritant (tobacco smoke). will resume steroids in AM as blood cultures are negative and are a contaminant. (2) Squamous cell carcinoma of lung: Plan: - history of - s/p right pneumonectomy - follows with Dr. Lucero who orders her yearly surveillance CT scans (3) Tobacco abuse: Plan: - smokes 1 pack per day - nicoderm patch ordered - recommend cessation (4) Leukocytosis: Plan: - WBC elevated to 27 - may be due to infection vs. reactive - on azithromycin as above -now will add ceftriaxone, awaiting for procal - trend CBC (5) Hyponatremia: Plan: - Na level mildly low at 135 - history of SIADH - repeat BMP in am - fluid restrict if not corrected Diet: Regular (patient has history of esophageal dysmotility but found not to aspirate) Dvt ppx: Lovenox Dispo: Med/tele (needs continuous pulse oximetry) Code: Full, I discussed with patient Admission and Anticipated Discharge Date Admission Date: January 14, 2021 Subjective Patient reports no new symptoms today. No significant improvement. Review of Systems Review of Systems: All systems reviewed & are unremarkable except as noted in HPI & below Physical Exam Physical Exam: Constitutional: + thin, cooperative and comfortable; no acute distress Eyes: + anicteric sclerae ENMT: external ear and nose normal, oropharynx normal Neck: trachea midline Respiratory: normal respiratory effort; no labored breathing Auscultation: no wheezing, improved breath sounds Cardiovascular: RRR, no murmur, no edema Heart Sounds: normal S1 and normal S2 Extremities: no pedal edema Gastrointestinal (Abdomen): normal bowel sounds, soft, nontender, no hepatosplenomegaly Musculoskeletal: Head/Neck/Chest: normocephalic and head atraumatic Skin: no rashes, warm and dry Neurologic: moves all extremities Psychiatric: A+Ox3, euthymic affect Results & Data Results & Data ([facility]) Vital Signs (Past 12 Hours) Vital Signs Temp Pulse Resp BP Pulse Ox 01/16/21 19:45 37.0 C 110 H 18 109/68 95 01/16/21 19:28 119 H 20 96 01/16/21 14:52 110 H 16 96 01/16/21 14:48 36.9 C 119 H 18 103/66 96 01/16/21 11:21 36.8 C 114 H 18 98/59 L 98 PG Care Time/CCT Total # of Minutes Spent Total Time Spent with Patient: Total time spent is greater than 50% in coordination of care (as documented) at patient's floor/unit and/or counseling patient: Coding Level of Care Code 95773 Subseq Hosp Care Lvl 2 Diagnoses Acute exacerbation of chronic obstructive pulmonary disease J44.1 Squamous cell carcinoma of lung C34.91 Laterality: right Tobacco abuse Z72.0 Leukocytosis D72.829 Hyponatremia E87.1 Time Spent (min) 25 (1) Squamous cell carcinoma of lung Laterality: right Qualified Code(s): C34.91 - Malignant neoplasm of unspecified part of right bronchus or lung
[2021-01-17] MEDS: AZITHROMYCIN 500 MG in DEXTROSE 5% 250 ML IV SCH (05:06)
[2021-01-17] MEDS: FORMOTEROL 20 MCG/2 ML VIAL INH SCH ×2 (07:17→19:36)
[2021-01-17] MEDS: ALBUT/IPRATROP 3MG/0.5MG NEB 3 ML VIAL NEB SCH ×4 (07:17→19:38)
[2021-01-17 08:32] LABS: Hematocrit (blood only) 35.8 % (37-47); Hemoglobin 11.9 g/dL (12.0-16.0); Mean Corpuscular Hemoglobin 32.9 pg (25-34); Mean Corpuscular Hgb Conc 33.2 g/dL (32-36); Mean Corpuscular Volume 98.9 fL (80-100); Mean Platelet Volume 9.1 fL (7.4-10.4); Platelet Count 158 K/uL (130-400); RDW Coefficient of Variation 14.1 % (11.5-14.5); RDW Standard Deviation 51.3 fL (36.4-46.3); Red Blood Count 3.62 M/uL (4.2-5.4); White Blood Count 11.61 K/uL (4.8-10.8)
[2021-01-17 09:04] LABS: BUN Creatinine Ratio 21.9 (10-20); Calcium 8.7 mg/dl (8.5-10.1); Creatinine Clr Calc Pharmacy 70.9 ml/min; Est GFR (African American) 123.8 ml/min; Est GFR (Non-African American) 106.8 ml/min; Potassium 3.8 mmol/L (3.5-5.1)
[2021-01-17] MEDS: UMECLIDINIUM BROMIDE 62.5MCG/BLISTER 7 PUFFS/INHALER INH SCH (09:09)
[2021-01-17] MEDS: NICOTINE 14 MG/24 HR PATCH TD SCH (09:09)
[2021-01-17] MEDS: FLUTICASONE/VILANTEROL 200/25MCG 14 PUFFS/INHALER INH SCH (09:09)
[2021-01-17] MEDS: ENOXAPARIN INJ 30 MG/0.3 ML SYR SQ SCH (09:10)
[2021-01-17] MEDS: guaiFENesin 600 MG TABCR PO SCH ×2 (09:10→20:37)
[2021-01-17] MEDS: cefTRIAXone SODIUM 1,000 MG in DEXTROSE 5% 50 ML IV SCH (18:21)
[2021-01-17] MEDS: guaiFENesin/DEXTROM SYRUP 200MG/20MG 10ML UDC PO PRN (20:42)
[2021-01-17] MEDS: MIRTAZAPINE TAB 15 MG TAB PO SCH (21:44)
--- NOTE | 2021-01-17 22:01 | Hospitalist Progress Note ---
Date of Service January 17, 2021 Assessment & Plan (1) Acute exacerbation of chronic obstructive pulmonary disease: Plan: Mrs. Posadas is a 65 yo woman with a PMHx of COPD who presents for acute worsening of her breathing. - azithromycin 500mg IV daily -Concern over possibe bacteremia -will add ceftriaxone and get procal. patient reports no anaphylaxis (inflammation, difficulty breathing) with penicllin. - duonebs QID - Mucinex BID scheduled - continue home Spiriva, Symbicort and Perforomist - etiology of COPD exacerbation: likely due to acute viral URI + ongoing inhalation of lung irritant (tobacco smoke). -will contnue to monitor improvement. -may take some time due to severity of her flair up. Continue LABA, LAMA, ICS (2) Squamous cell carcinoma of lung: Plan: - history of - s/p right pneumonectomy - follows with Dr. Lucero who orders her yearly surveillance CT scans (3) Tobacco abuse: Plan: - smokes 1 pack per day - nicoderm patch ordered - recommend cessation (4) Leukocytosis: Plan: - WBC elevated to 27 - may be due to infection vs. reactive - on azithromycin as above -now will add ceftriaxone, awaiting for procal - trend CBC :improved to 11 (5) Hyponatremia: Plan: - Na level mildly low at 135 - history of SIADH - repeat BMP in am - fluid restrict if not corrected Diet: Regular (patient has history of esophageal dysmotility but found not to aspirate) Dvt ppx: Lovenox Dispo: Med/tele (needs continuous pulse oximetry) Code: Full, I discussed with patient Admission and Anticipated Discharge Date Admission Date: January 14, 2021 Subjective Patient reports no significant improvement today. Review of Systems Review of Systems: All systems reviewed & are unremarkable except as noted in HPI & below Physical Exam Physical Exam: Constitutional: + thin, cooperative and comfortable; no acute distress Eyes: + anicteric sclerae ENMT: external ear and nose normal, oropharynx normal Neck: trachea midline Respiratory: normal respiratory effort; no labored breathing Auscultation: no wheezing, improved breath sounds Cardiovascular: RRR, no murmur, no edema Heart Sounds: normal S1 and normal S2 Extremities: no pedal edema Gastrointestinal (Abdomen): normal bowel sounds, soft, nontender, no hepatosplenomegaly Musculoskeletal: Head/Neck/Chest: normocephalic and head atraumatic Skin: no rashes, warm and dry Neurologic: moves all extremities Psychiatric: A+Ox3, euthymic affect Results & Data Results & Data ([facility]) Vital Signs (Past 12 Hours) Vital Signs Temp Pulse Resp BP Pulse Ox 01/17/21 19:38 104 H 18 98 01/17/21 19:18 36.9 C 105 H 18 108/66 100 01/17/21 15:40 36.8 C 122 H 20 136/93 96 01/17/21 14:33 118 H 16 97 01/17/21 12:08 36.7 C 85 19 82/56 L 96 01/17/21 11:28 113 H 20 93 PG Care Time/CCT Total # of Minutes Spent Total Time Spent with Patient: Total time spent is greater than 50% in coordination of care (as documented) at patient's floor/unit and/or counseling patient: Coding Level of Care Code 11085 Subseq Hosp Care Lvl 3 Diagnoses Acute exacerbation of chronic obstructive pulmonary disease J44.1 Squamous cell carcinoma of lung C34.91 Laterality: right Tobacco abuse Z72.0 Leukocytosis D72.829 Hyponatremia E87.1 Time Spent (min) 35 (1) Squamous cell carcinoma of lung Laterality: right Qualified Code(s): C34.91 - Malignant neoplasm of unspecified part of right bronchus or lung
[2021-01-18] MEDS: AZITHROMYCIN 500 MG in DEXTROSE 5% 250 ML IV SCH (04:48)
[2021-01-18] MEDS: FORMOTEROL 20 MCG/2 ML VIAL INH SCH ×2 (07:35→19:20)
[2021-01-18] MEDS: ALBUT/IPRATROP 3MG/0.5MG NEB 3 ML VIAL NEB SCH ×4 (07:37→19:20)
[2021-01-18 08:01] LABS: Hematocrit (blood only) 33.7 % (37-47); Hemoglobin 11.1 g/dL (12.0-16.0); Mean Corpuscular Hemoglobin 33.2 pg (25-34); Mean Corpuscular Hgb Conc 32.9 g/dL (32-36); Mean Corpuscular Volume 100.9 fL (80-100); Mean Platelet Volume 8.8 fL (7.4-10.4); Platelet Count 123 K/uL (130-400); RDW Coefficient of Variation 14.1 % (11.5-14.5); RDW Standard Deviation 52.2 fL (36.4-46.3); Red Blood Count 3.34 M/uL (4.2-5.4); White Blood Count 8.65 K/uL (4.8-10.8)
[2021-01-18] MEDS: methylPREDNISolone 40 MG in SYRINGE 0 ML IV SCH (08:06)
[2021-01-18] MEDS: FLUTICASONE/VILANTEROL 200/25MCG 14 PUFFS/INHALER INH SCH (08:06)
[2021-01-18] MEDS: guaiFENesin 600 MG TABCR PO SCH ×2 (08:06→21:22)
[2021-01-18] MEDS: UMECLIDINIUM BROMIDE 62.5MCG/BLISTER 7 PUFFS/INHALER INH SCH (08:06)
[2021-01-18] MEDS: NICOTINE 14 MG/24 HR PATCH TD SCH (08:07)
[2021-01-18] MEDS: ENOXAPARIN INJ 30 MG/0.3 ML SYR SQ SCH ×2 (08:07→08:09)
[2021-01-18 09:07] LABS: BUN Creatinine Ratio 21.2 (10-20); Calcium 8.7 mg/dl (8.5-10.1); Creatinine Clr Calc Pharmacy 90.5 ml/min; Est GFR (Non-African American) 115.6 ml/min; Potassium 3.9 mmol/L (3.5-5.1)
[2021-01-18] MEDS: cefTRIAXone SODIUM 1,000 MG in DEXTROSE 5% 50 ML IV SCH (17:43)
[2021-01-18] MEDS: MIRTAZAPINE TAB 15 MG TAB PO SCH (21:19)
[2021-01-18] MEDS ORDERED: MELATONIN 3 MG TAB PO PRN (21:37)
--- NOTE | 2021-01-18 21:41 | Hospitalist Progress Note ---
Date of Service January 18, 2021 Assessment & Plan (1) Acute exacerbation of chronic obstructive pulmonary disease: Plan: Mrs. Posadas is a 65 yo woman with a PMHx of COPD who presents for acute worsening of her breathing. - azithromycin 500mg IV daily -Added ceftriaxone on 01/18 1 gram daily -bacteremia ruled out. -will add ceftriaxone and get procal. patient reports no anaphylaxis (inflammation, difficulty breathing) with penicllin. - duonebs QID - Mucinex BID scheduled - continue home Spiriva, Symbicort and Perforomist - etiology of COPD exacerbation: likely due to acute viral URI + ongoing inhalation of lung irritant (tobacco smoke). -will continue to monitor improvement. -may take some time due to severity of her flair up. Continue LABA, LAMA, ICS check sputum culture (2) Squamous cell carcinoma of lung: Plan: - history of - s/p right pneumonectomy - follows with Dr. Lucero who orders her yearly surveillance CT scans (3) Tobacco abuse: Plan: - smokes 1 pack per day - nicoderm patch ordered - recommend cessation (4) Leukocytosis: Plan: - WBC elevated to 27 - may be due to infection vs. reactive - on azithromycin as above -now will add ceftriaxone, awaiting for procal - resolved (5) Hyponatremia: Plan: - Na level mildly low at 135 - history of SIADH - repeat BMP in am - fluid restrict if not corrected Diet: Regular (patient has history of esophageal dysmotility but found not to aspirate) Dvt ppx: Lovenox Dispo: Med/tele (needs continuous pulse oximetry) Code: Full, I discussed with patient Admission and Anticipated Discharge Date Admission Date: January 14, 2021 Subjective 65 yo female reports that her breathing has been getting better. She is not at baseline. She continues to have sputum Review of Systems Review of Systems: All systems reviewed & are unremarkable except as noted in HPI & below Physical Exam Physical Exam: Constitutional: + thin, cooperative and comfortable; no acute distress Eyes: + anicteric sclerae ENMT: external ear and nose normal, oropharynx normal Neck: trachea midline Respiratory: normal respiratory effort; no labored breathing Auscultation: no wheezing, improved breath sounds Cardiovascular: RRR, no murmur, no edema Heart Sounds: normal S1 and normal S2 Extremities: no pedal edema Gastrointestinal (Abdomen): normal bowel sounds, soft, nontender, no hepatosplenomegaly Musculoskeletal: Head/Neck/Chest: normocephalic and head atraumatic Skin: no rashes, warm and dry Neurologic: moves all extremities Psychiatric: A+Ox3, euthymic affect Results & Data Results & Data ([facility]) Vital Signs (Past 12 Hours) Vital Signs Temp Pulse Resp BP Pulse Ox 01/18/21 19:24 102 H 18 95 01/18/21 19:11 36.6 C 100 H 18 127/73 98 01/18/21 15:14 107 H 18 97 01/18/21 14:44 36.9 C 106 H 19 121/58 L 96 01/18/21 11:41 96 H 16 98 01/18/21 11:00 36.6 C 94 H 20 111/57 L 95 PG Care Time/CCT Total # of Minutes Spent Total Time Spent with Patient: Total time spent is greater than 50% in coordination of care (as documented) at patient's floor/unit and/or counseling patient: Coding Level of Care Code 08292 Subseq Hosp Care Lvl 2 Diagnoses Acute exacerbation of chronic obstructive pulmonary disease J44.1 Squamous cell carcinoma of lung C34.91 Laterality: right Tobacco abuse Z72.0 Leukocytosis D72.829 Hyponatremia E87.1 (1) Squamous cell carcinoma of lung Laterality: right Qualified Code(s): C34.91 - Malignant neoplasm of unspecified part of right bronchus or lung
[2021-01-19] MEDS: AZITHROMYCIN 500 MG in DEXTROSE 5% 250 ML IV SCH (04:33)
[2021-01-19] MEDS: ALBUT/IPRATROP 3MG/0.5MG NEB 3 ML VIAL NEB SCH ×4 (07:53→19:43)
[2021-01-19] MEDS: FORMOTEROL 20 MCG/2 ML VIAL INH SCH ×2 (07:56→21:25)
[2021-01-19 08:40] LABS: Hematocrit (blood only) 33.4 % (37-47); Hemoglobin 11.1 g/dL (12.0-16.0); Mean Corpuscular Hemoglobin 32.6 pg (25-34); Mean Corpuscular Hgb Conc 33.2 g/dL (32-36); Mean Corpuscular Volume 98.2 fL (80-100); Platelet Count 148 K/uL (130-400); RDW Coefficient of Variation 13.8 % (11.5-14.5); RDW Standard Deviation 49.3 fL (36.4-46.3); White Blood Count 6.13 K/uL (4.8-10.8)
[2021-01-19] MEDS: methylPREDNISolone 40 MG in SYRINGE 0 ML IV SCH (08:51)
[2021-01-19] MEDS: UMECLIDINIUM BROMIDE 62.5MCG/BLISTER 7 PUFFS/INHALER INH SCH (08:52)
[2021-01-19] MEDS: NICOTINE 14 MG/24 HR PATCH TD SCH (08:53)
[2021-01-19] MEDS: FLUTICASONE/VILANTEROL 200/25MCG 14 PUFFS/INHALER INH SCH (08:53)
[2021-01-19] MEDS: guaiFENesin 600 MG TABCR PO SCH ×2 (08:53→19:30)
[2021-01-19] MEDS: ENOXAPARIN INJ 30 MG/0.3 ML SYR SQ SCH (09:08)
[2021-01-19 09:24] LABS: BUN Creatinine Ratio 23.1 (10-20); Calcium 9.4 mg/dl (8.5-10.1); Creatinine Clr Calc Pharmacy 75.3 ml/min; Est GFR (African American) 125.8 ml/min; Est GFR (Non-African American) 108.5 ml/min; Potassium 3.4 mmol/L (3.5-5.1)
--- NOTE | 2021-01-19 10:54 | XRay Report ---
XR chest 1V portable CLINICAL HISTORY: hypoxia TECHNIQUE: Single frontal radiograph of the chest was obtained. Comparison: Comparison is made to chest one view 01/14/2021 FINDINGS: No lines and tubes are seen. Likely cardiomegaly is seen with rightward mediastinal shift. Aortic jennifer cifications are noted. Patient is again noted to be status post right pneumonectomy. There is a tiny linear density in the left lung base favored to represent atelectasis. No evidence of pleural effusio n or pneumothorax. IMPRESSION: Likely left lung base atelectasis. Otherwise no acute abnormalities. Status post right pneumonectomy. ACT 112: Negative or not required by law. Electronically signed by: Jamie Slaughter M.D. 01/19/2021 10:52 AM
[2021-01-19] MEDS: NYSTATIN SUSP 500,000 U/5 ML UDC PO SCH ×3 (13:17→19:31)
[2021-01-19] MEDS: cefTRIAXone SODIUM 1,000 MG in DEXTROSE 5% 50 ML IV SCH (18:02)
[2021-01-19] MEDS: MIRTAZAPINE TAB 15 MG TAB PO SCH (19:30)
--- NOTE | 2021-01-19 21:03 | Hospitalist Progress Note ---
Date of Service January 19, 2021 Assessment & Plan (1) Acute exacerbation of chronic obstructive pulmonary disease: Plan: Mrs. Posadas is a 65 yo woman with a PMHx of COPD who presents for acute worsening of her breathing. - azithromycin 500mg IV daily -Added ceftriaxone on 01/18 1 gram daily -bacteremia ruled out. -will add ceftriaxone and get procal. patient reports no anaphylaxis (inflammation, difficulty breathing) with penicllin. - duonebs QID - Mucinex BID scheduled - continue home Spiriva, Symbicort and Perforomist - etiology of COPD exacerbation: likely due to acute viral URI + ongoing inhalation of lung irritant (tobacco smoke). -will continue to monitor improvement. -may take some time due to severity of her flair up/ as well as her h/o severe emphysema/only having one lung. Continue LABA, LAMA, ICS check sputum culture (2) Squamous cell carcinoma of lung: Plan: - history of - s/p right pneumonectomy - follows with Dr. Lucero who orders her yearly surveillance CT scans (3) Tobacco abuse: Plan: - smokes 1 pack per day - nicoderm patch ordered - recommend cessation (4) Leukocytosis: Plan: - WBC elevated to 27 - may be due to infection vs. reactive - on azithromycin as above -now will add ceftriaxone, awaiting for procal - resolved (5) Hyponatremia: Plan: - Na level mildly low at 135 - history of SIADH - repeat BMP in am - fluid restrict if not corrected Diet: Regular (patient has history of esophageal dysmotility but found not to aspirate) Dvt ppx: Lovenox Dispo: Med/tele (needs continuous pulse oximetry) Code: Full, I discussed with patient Admission and Anticipated Discharge Date Admission Date: January 14, 2021 Subjective 65 yo female reports feeling better today. However, she is not at baseline. Review of Systems Review of Systems: All systems reviewed & are unremarkable except as noted in HPI & below Physical Exam Physical Exam: Constitutional: + thin, cooperative and comfortable; no acute distress Eyes: + anicteric sclerae ENMT: external ear and nose normal, oropharynx normal Neck: trachea midline Respiratory: normal respiratory effort; no labored breathing Auscultation: no wheezing, improved breath sounds Cardiovascular: RRR, no murmur, no edema Heart Sounds: normal S1 and normal S2 Extremities: no pedal edema Gastrointestinal (Abdomen): normal bowel sounds, soft, nontender, no hepatosplenomegaly Musculoskeletal: Head/Neck/Chest: normocephalic and head atraumatic Skin: no rashes, warm and dry Neurologic: moves all extremities Psychiatric: A+Ox3, euthymic affect Results & Data Results & Data ([facility]) Vital Signs (Past 12 Hours) Vital Signs Temp Pulse Pulse Resp BP Pulse Ox 01/19/21 19:43 104 H 20 98 01/19/21 19:38 36.5 C 106 H 18 126/72 99 01/19/21 15:30 118 H 01/19/21 14:32 81 18 98 01/19/21 11:55 36.9 C 84 16 103/67 97 01/19/21 10:21 98 H 16 98 PG Care Time/CCT Total # of Minutes Spent Total Time Spent with Patient: Total time spent is greater than 50% in coordination of care (as documented) at patient's floor/unit and/or counseling patient: Coding Level of Care Code 52960 Subseq Hosp Care Lvl 2 Diagnoses Acute exacerbation of chronic obstructive pulmonary disease J44.1 Squamous cell carcinoma of lung C34.91 Laterality: right Tobacco abuse Z72.0 Leukocytosis D72.829 Hyponatremia E87.1 Time Spent (min) 25 (1) Squamous cell carcinoma of lung Laterality: right Qualified Code(s): C34.91 - Malignant neoplasm of unspecified part of right bronchus or lung
[2021-01-20] MEDS: AZITHROMYCIN 500 MG in DEXTROSE 5% 250 ML IV SCH (03:40)
[2021-01-20] MEDS: methylPREDNISolone 40 MG in SYRINGE 0 ML IV SCH (06:03)
[2021-01-20] MEDS: ALBUT/IPRATROP 3MG/0.5MG NEB 3 ML VIAL NEB SCH (06:22)
[2021-01-20] MEDS: FORMOTEROL 20 MCG/2 ML VIAL INH SCH ×2 (06:22→19:50)
[2021-01-20] MEDS: ENOXAPARIN INJ 30 MG/0.3 ML SYR SQ SCH (09:13)
[2021-01-20] MEDS: guaiFENesin 600 MG TABCR PO SCH ×2 (09:14→20:40)
[2021-01-20] MEDS: FLUTICASONE/VILANTEROL 200/25MCG 14 PUFFS/INHALER INH SCH (09:14)
[2021-01-20] MEDS: NICOTINE 14 MG/24 HR PATCH TD SCH (09:15)
[2021-01-20] MEDS: NYSTATIN SUSP 500,000 U/5 ML UDC PO SCH ×4 (09:17→20:40)
[2021-01-20] MEDS: UMECLIDINIUM BROMIDE 62.5MCG/BLISTER 7 PUFFS/INHALER INH SCH (09:17)
[2021-01-20] MEDS ORDERED: ALBUT/IPRATROP 3MG/0.5MG NEB 3 ML VIAL NEB PRN (10:32)
[2021-01-20] MEDS: cefTRIAXone SODIUM 1,000 MG in DEXTROSE 5% 50 ML IV SCH (18:09)
[2021-01-20 18:13] LABS: Hematocrit (blood only) 32.4 % (37-47); Hemoglobin 10.7 g/dL (12.0-16.0); Mean Corpuscular Hemoglobin 32.5 pg (25-34); Mean Corpuscular Volume 98.5 fL (80-100); Mean Platelet Volume 8.9 fL (7.4-10.4); Platelet Count 172 K/uL (130-400); RDW Coefficient of Variation 13.9 % (11.5-14.5); RDW Standard Deviation 49.9 fL (36.4-46.3); Red Blood Count 3.29 M/uL (4.2-5.4); White Blood Count 9.93 K/uL (4.8-10.8)
[2021-01-20 18:34] LABS: BUN Creatinine Ratio 35.3 (10-20); Calcium 8.7 mg/dl (8.5-10.1); Creatinine Clr Calc Pharmacy 59.8 ml/min; Est GFR (African American) 116.9 ml/min; Est GFR (Non-African American) 100.9 ml/min
[2021-01-20 18:56] LABS: Potassium 4.6 mmol/L (3.5-5.1)
--- NOTE | 2021-01-20 20:36 | Hospitalist Progress Note ---
Date of Service January 20, 2021 Assessment & Plan (1) Acute exacerbation of chronic obstructive pulmonary disease: Plan: Mrs. Posadas is a 65 yo woman with a PMHx of COPD who presents for acute worsening of her breathing. - azithromycin 500mg IV daily -Added ceftriaxone on 01/18 1 gram daily -bacteremia ruled out. -procal neg - duonebs QID PRN - Mucinex BID scheduled - continue home Spiriva, Symbicort and Perforomist - etiology of COPD exacerbation: likely due to acute viral URI + ongoing inhalation of lung irritant (tobacco smoke). -will continue to monitor improvement. -may take some time due to severity of her flair up/ as well as her h/o severe emphysema/only having one lung. Continue LABA, LAMA, ICS check sputum culture: contaminanted (2) Squamous cell carcinoma of lung: Plan: - history of - s/p right pneumonectomy - follows with Dr. Lucero who orders her yearly surveillance CT scans (3) Tobacco abuse: Plan: - smokes 1 pack per day - nicoderm patch ordered - recommend cessation (4) Leukocytosis: Plan: - WBC elevated to 27 - may be due to infection vs. reactive - on azithromycin as above -now will add ceftriaxone, awaiting for procal - resolved (5) Hyponatremia: Plan: - Na level mildly low at 135 - history of SIADH - repeat BMP in am - fluid restrict if not corrected Diet: Regular (patient has history of esophageal dysmotility but found not to aspirate) Dvt ppx: Lovenox Dispo: Med/tele (needs continuous pulse oximetry) Code: Full, I discussed with patient (6) Protein-calorie malnutrition, severe: Plan: Severeprotein-calorie malnutrition 65-year-old female with a history of squamous cell lung cancer, tobacco abuse, alcoholism, and protein calorie malnutrition presents with COPD exacerbation. -Fatigued appearing and thin in appearance. Her weight on admission is 36.7 kg and she has a BMI of 14.3. Risk Factor(s): Age, Cancer, alcoholism, tobacco abuse, chronic respiratory failure, chronic reflux esophagitis, and protein calorie malnutrition Treatment: regular diet, daily weights, Admission and Anticipated Discharge Date Admission Date: January 14, 2021 Subjective Patient reports feeling slightly better today. She has no new complaints. Review of Systems Review of Systems: All systems reviewed & are unremarkable except as noted in HPI & below Physical Exam Physical Exam: Constitutional: + thin, cooperative and comfortable; no acute distress Eyes: + anicteric sclerae ENMT: external ear and nose normal, oropharynx normal Neck: trachea midline Respiratory: normal respiratory effort; no labored breathing Auscultation: no wheezing, improved breath sounds Cardiovascular: RRR, no murmur, no edema Heart Sounds: normal S1 and normal S2 Extremities: no pedal edema Gastrointestinal (Abdomen): normal bowel sounds, soft, nontender, no hepatosplenomegaly Musculoskeletal: Head/Neck/Chest: normocephalic and head atraumatic Skin: no rashes, warm and dry Neurologic: moves all extremities Psychiatric: A+Ox3, euthymic affect Results & Data Results & Data ([facility]) Vital Signs (Past 12 Hours) Vital Signs Temp Pulse Pulse Resp BP Pulse Ox 01/20/21 19:50 88 20 97 01/20/21 19:05 37 C 105 H 18 124/73 98 01/20/21 15:25 36.6 C 115 H 20 107/71 98 01/20/21 15:15 116 H 01/20/21 11:53 36.6 C 110 H 20 119/76 97 PG Care Time/CCT Total # of Minutes Spent Total Time Spent with Patient: Total time spent is greater than 50% in coordination of care (as documented) at patient's floor/unit and/or counseling patient: Coding Level of Care Code 00712 Subseq Hosp Care Lvl 2 Diagnoses Acute exacerbation of chronic obstructive pulmonary disease J44.1 Squamous cell carcinoma of lung C34.91 Laterality: right Tobacco abuse Z72.0 Leukocytosis D72.829 Hyponatremia E87.1 Protein-calorie malnutrition, severe E43 Time Spent (min) 25 (1) Squamous cell carcinoma of lung Laterality: right Qualified Code(s): C34.91 - Malignant neoplasm of unspecified part of right bronchus or lung
[2021-01-20] MEDS: MIRTAZAPINE TAB 15 MG TAB PO SCH (20:40)
[2021-01-21] MEDS: AZITHROMYCIN 500 MG in DEXTROSE 5% 250 ML IV SCH (03:44)
[2021-01-21] MEDS: FORMOTEROL 20 MCG/2 ML VIAL INH SCH (06:00)
[2021-01-21] MEDS: methylPREDNISolone 40 MG in SYRINGE 0 ML IV SCH (06:35)
[2021-01-21] MEDS: NICOTINE 14 MG/24 HR PATCH TD SCH (07:28)
[2021-01-21] MEDS: guaiFENesin 600 MG TABCR PO SCH (07:28)
[2021-01-21] MEDS: NYSTATIN SUSP 500,000 U/5 ML UDC PO SCH ×2 (07:28→13:17)
[2021-01-21] MEDS: FLUTICASONE/VILANTEROL 200/25MCG 14 PUFFS/INHALER INH SCH (07:28)
[2021-01-21] MEDS: UMECLIDINIUM BROMIDE 62.5MCG/BLISTER 7 PUFFS/INHALER INH SCH (07:29)
[2021-01-21] MEDS: ENOXAPARIN INJ 30 MG/0.3 ML SYR SQ SCH (07:30)
[2021-01-21 07:48] LABS: Creatinine Clr Calc Pharmacy 85.4 ml/min; Est GFR (African American) 131.4 ml/min; Est GFR (Non-African American) 113.4 ml/min
--- NOTE | 2021-01-21 10:42 | XRay Report ---
XR chest 2V PA/lateral CLINICAL HISTORY: copd exacerbation/ atelectasis in previous image COMPARISON STUDY: Chest CT January 14, 2021. Chest radiograph January 19, 2021. FINDINGS: Right pneumonectomy is again noted. Expected rightward mediastinal shift is present. Emphys dixie within the left lung is noted. There is no pneumothorax. No pleural effusion is noted. Minimal le ft basilar opacity is decreased. IMPRESSION: 1. Mild left basilar opacity, decreased since prior exam. 2. Emphysema. 3. Stable findings following right pneumonectomy. ACT 112: Negative or not required by law. Electronically signed by: Rao Carrizales M.D. 01/21/2021 10:41 AM
--- NOTE | 2021-01-21 16:06 | Discharge Summary ---
Date of Service January 21, 2021 Admission HPI Per Admitting Provider Mrs. Posadas is a 65 yo woman with a PMHx of COPD here today for acute on chronic breathing trouble. Of note, she was seen earlier in our emergency department, diagnosed with a COPD exacerbation and sent home with a 10 day course of doxycycline and prednisone. She retuned due to ongoing dyspnea. She reports have URI symptoms for the past two weeks (congestion, intermittent productive cough). She has had to use her albuterol rescue inhaler about 3 times per day. She denies fever, chest pain, abdominal pain, nausea/vomiting, diarrhea or urinary symptoms. She had a history of squamous cell carcinoma of the right lung -fortunately this was detected early and she her right lung removed in 2008 at [facility]. She is a long-time tobacco smoker - she did quit for a period fo 2 years after her right lung pneumonectomy - however she started up again due to "frustration." She currently smokes one pack per day. She is on 3L of oxygen via [place] 24 hours per day at baseline for her COPD. She is compliant with her home inhaler regimen (and uses appropriately) She was fully vaccinated against COVID 19 in June 2020; no known covid 19 positive contacts. She does drink hard liquor, 2-3 times per week. In the ED, she was afebrile, with normal HR and blood pressure. Her O2 saturation was 98% on 4L via NC. Her WBC was elevated to 10.9 with neutrophil predom. Her CMP was normal, with the exception of a mildly low Na of 135. Her trop was undetectable. COVID 19/ Flu A and B neg. Blood cultures pending. Her CXR showed no active disease. Chest CTA ruled out acute PE; all other findings were chronic and/or unchanged. She was given a duoneb treatment. Principal Diagnosis Acute exacerbation of COPD Discharge Exam Constitutional: + thin, cooperative and comfortable; no acute distress Eyes: + anicteric sclerae ENMT: external ear and nose normal, oropharynx normal Neck: trachea midline Respiratory: normal respiratory effort; no labored breathing Auscultation: no wheezing, improved breath sounds Cardiovascular: RRR, no murmur, no edema Heart Sounds: normal S1 and normal S2 Extremities: no pedal edema Gastrointestinal (Abdomen): normal bowel sounds, soft, nontender, no hepatosplenomegaly Musculoskeletal: Head/Neck/Chest: normocephalic and head atraumatic Skin: no rashes, warm and dry Neurologic: moves all extremities Psychiatric: A+Ox3, euthymic affect Discharge Data Allergies Allergy/AdvReac Type Severity Reaction Status Date / Time Bactrim Allergy Severe TONGUE Verified 10/29/17 10:17 SWELLING sulfamethoxazole Allergy Severe TONGUE Verified 01/14/21 22:20 SWELLING trimethoprim Allergy Severe TONGUE Verified 01/14/21 22:20 SWELLING aspirin Allergy Unknown SEVERE Verified 01/14/21 22:20 STOMACH CRAMPING Penicillins Allergy Unknown Unknown Verified 01/14/21 22:20 Consultations 01/14/21 21:26 ED Decision to Admit Stat Ordered Studies 01/14/21 20:31 CT angio chest PE protocol Urgent Hospital Course (1) Acute exacerbation of chronic obstructive pulmonary disease: Mrs. Posadas is a 65 yo woman with a PMHx of COPD who presents for acute worsening of her breathing. - azithromycin 500mg IV daily -Added ceftriaxone on 01/18 1 gram daily -bacteremia ruled out. -procal neg - duonebs QID PRN - Mucinex BID scheduled - continue home Spiriva, Symbicort and Perforomist - etiology of COPD exacerbation: likely due to acute viral URI + ongoing inhalation of lung irritant (tobacco smoke). -will continue to monitor improvement. -may take some time due to severity of her flair up/ as well as her h/o severe emphysema/only having one lung. Continue LABA, LAMA, ICS check sputum culture: contaminanted Patient improved over the course of the hospital stay. Patient had a 2 step on day of discharge and required 2 liters nasal cannula which is her baselie. (2) Squamous cell carcinoma of lung: - history of - s/p right pneumonectomy - follows with Dr. Lucero who orders her yearly surveillance CT scans (3) Tobacco abuse: - smokes 1 pack per day - nicoderm patch ordered - recommend cessation (4) Leukocytosis: - WBC elevated to 27 - may be due to infection vs. reactive - on azithromycin as above -now will add ceftriaxone, awaiting for procal - resolved (5) Hyponatremia: - Na level mildly low at 135 - history of SIADH - repeat BMP in am - fluid restrict if not corrected Diet: Regular (patient has history of esophageal dysmotility but found not to aspirate) Dvt ppx: Lovenox (6) Protein-calorie malnutrition, severe: Severeprotein-calorie malnutrition 65-year-old female with a history of squamous cell lung cancer, tobacco abuse, alcoholism, and protein calorie malnutrition presents with COPD exacerbation. -Fatigued appearing and thin in appearance. Her weight on admission is 36.7 kg and she has a BMI of 14.3. Risk Factor(s): Age, Cancer, alcoholism, tobacco abuse, chronic respiratory failure, chronic reflux esophagitis, and protein calorie malnutrition Treatment: regular diet, daily weights, Total Time Total Time Spent Total Time Spent (In Minutes): 32 Discharge Plan Discharge Items Patient Disposition: Home - Self-Care Reason For Visit: COPD EXACERBATION Discharge Diagnosis: COPD exacerbation Activity: Resume your previous activity Non-emergency contact: Primary Care Provider Call non-emergency contact if: you have any medication questions Follow-up/Referrals: Temitope Shaikh MD [Primary Care Provider] - 01/29/21 11:30 am Diet: Regular Addtl Attending Provider Instructions: You have been hospitalized for an acute medical problem. During your stay at [facility], we have made an effort to correct the problem that brought you to the hospital while keeping you as comfortable as possible. Medications were used to bring your condition under control and your discharge instructions will include directions for any medications you should take after leaving the hospital. Please make sure you see your Primary Care Provider as part of your follow up plan. Need to quit smoking. Need to continue 2 liters nasal cannula. F/U with PCP in 1-2 weeks. Pending Studies at Discharge: No Stand-Alone Forms: My [facility], Smoking Cessation Medications and DC Order Prescriptions: New nicotine 7 mg/24 hr Patch 24 Hour 14 mg transdermal QAM Qty: 30 RF: 0 Breo Ellipta 200-25 mcg/dose Blister With Device 1 inh inhalation DAILY Qty: 1 RF: 0 nystatin 100,000 unit/mL Suspension 5 ml PO QID 12 Days Qty: 240 RF: 0 prednisone 10 mg tablet 10 mg PO DAILY Qty: 20 RF: 0 Continued mirtazapine 15 mg tablet 7.5 mg PO HS Qty: 30 RF: 5 budesonide 1 mg/2 mL suspension for nebulization 1 mg inhalation DAILY Qty: 30 RF: 11 formoterol fumarate [Perforomist] 20 mcg/2 mL solution for nebulization 2 ml inhalation Q12H Qty: 120 RF: 11 Mucinex 1,200 mg tablet extended release 12hr 1,200 mg PO BID Qty: 60 RF: 0 Spiriva with HandiHaler 18 mcg capsule, w/inhalation device 1 cap INH DAILY Qty: 30 RF: 5 albuterol sulfate [ProAir HFA] 90 mcg/actuation HFA aerosol inhaler 2 puff INH .Q4-6HRS PRN (Reason: Shortness Of Breath Or Wheezing) Qty: 18 RF: 6 albuterol sulfate 2.5 mg /3 mL (0.083 %) solution for nebulization 2.5 mg INH QID PRN (Reason: Shortness Of Breath Or Wheezing) Qty: 180 RF: 8 Women's One Daily 18 mg iron-400 mcg-500 mg Ca Tablet 1 tab PO DAILY RF: 0 Discontinued cefdinir 300 mg capsule 300 mg PO BID Qty: 20 RF: 2 prednisone 20 mg tablet 40 mg PO DAILY 4 Days Qty: 8 RF: 0 Discharge Orders: Discharge Order (Routine); Ordered 01/21/21 Ordered By: Tonny Parkinson Admission Data Admit Date/Time: 01/14/21 21:44 Attending Provider: Tonny Parkinson Admit Provider: Ana M Morales Primary Care Provider: Temitope Shaikh Other Providers: Kwasi Giordano Other Interventions: Discharge Summary Assessment (RN) Last Done: 01/21/21 12:50 Coding Level of Care Code D/C DAY MANAGEMENT >30 MINS Diagnoses Acute exacerbation of chronic obstructive pulmonary disease J44.1 Squamous cell carcinoma of lung C34.91 Laterality: right Tobacco abuse Z72.0 Leukocytosis D72.829 Hyponatremia E87.1 Protein-calorie malnutrition, severe E43
== END 2021-01-21 15:35 | disposition home or self-care (01) | DRG 190 ==
LOC: ED 19:48 → 2W 21:44 → SUATTDRO 21:44 → 2W 01-15 02:05 → 2N 01-15 11:40

== ENCOUNTER 2021-03-02 09:38 | Inpatient (IN) ==
[2021-03-02] MEDS ORDERED: ACETAMINOPHEN 1,000 MG/100 ML VIAL IV STA (09:47)
[2021-03-02] MEDS ORDERED: guaiFENesin 600 MG TABCR PO STA (09:47)
[2021-03-02] MEDS ORDERED: methylPREDNISolone 125 MG/2 ML VIAL IV STA (09:47)
[2021-03-02] MEDS ORDERED: SODIUM CHLORIDE 0.9% 500 ML IV ONE ×2 (09:47→11:31)
[2021-03-02] MEDS ORDERED: ALBUT/IPRATROP 3MG/0.5MG NEB 3 ML VIAL NEB STA (09:47)
--- NOTE | 2021-03-02 09:57 | Emergency Department Note ---
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 She reports decreased PO intake. She de nies n/v/d or urinary symptoms. She is vaccinated for Covid-19. On arrival the patient is uncomfortable but no distress, afebrile with stable vital signs. She has diffuse wheezes and rhonchi bilaterally. He appears clinically dry and cachectic. EKG without overt acute ischemia. Chest x-ray interpreted as no acute change however left lower lobe opacities do appear to have increased density per my review. WBC 19.8K creased from recent values. H/H and platelets within normal limits. VBG is unremarkable. Chemistry without metabolic acidosis. BUN/creatinine> 20 consistent with the patient's clinical dry appearance. Lactic acid 1.2, within normal limits. Magnesium 1.3 with repletion initiated. Electrolytes without significant abnormality. Troponin negative/undetectable. Procalcitonin is not significantly elevated at 0.6. COVID-19 PCR was negative. Influenza and RSV PCR were also negative. Given the patient's worsening respiratory symptoms from her baseline with suspicion for aspiration pneumonia as well as hypomagnesemia reasonable to meet the patient for further management. The patient is in agreement with this plan. Patient was treated empirically with cefepime and clindamycin. Dr. Rondon, [facility] and team to evaluate the patient for admission. Triage Nursing notes reviewed and agree them. Prior medical records reviewed Vital Signs: reviewed and remarkable for no significant abnormalities Differential diagnosis: Reactive airway disease, pneumonia, pneumothorax, COPD, CHF, infections, cardiac ischemia, pulmonary embolism, musculoskeletal, gastrointestinal, as well as other pathologies. ER treatment provided: See below. Diagnostics interpreted by me: ECG: Sinus tachycardia, 121 bpm, no ectopy, nonspecific T wave abnormality, no overt ST elevation or depression, QTC 437, QRS 72. Cardiac Monitoring: An order for continuous cardiac monitoring was placed and demonstrated sinus tachycardia, 121 bpm, no ectopy. Laboratory studies: See below Imaging studies: See below Consultation(s): Dr. Rondon, [facility] [place] and team to evaluate the patient for admission. 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 She reports decreased PO intake. She denies n/v/d or urinary symptoms. She is vaccinated for Covid-19. ROS: See above HPI for pertinent positives & negatives. A total of 10 systems reviewed and were otherwise negative. PAST MEDICAL HISTORY:See Below PAST SURGICAL HISTORY:See Below FAMILY HISTORY:See Below SOCIAL HISTORY:See Below HOME MEDICATIONS:See Below ALLERGIES:See Below VITALS:See Below PHYSICAL EXAMINATION: GENERAL: Awake, alert, acute on chronically ill-appearing, cachectic, in no distress HENT: Normocephalic, atraumatic. Oropharynx with dry mucous membranes and otherwise unremarkable. EYES: Normal conjunctiva. Sclera non-icteric. NECK: Supple. No nuchal rigidity. FROM. No JVD. RESPIRATORY: Diffuse wheezes and rhonchi bilaterally. CARDIAC: Regular rate, normal rhythm. Extremities warm and well perfused. Pulses equal. ABDOMEN: Soft, non-distended. No tenderness to palpation. No rebound or guarding. No masses. RECTAL: Deferred. MUSCULOSKELETAL: Chest examination reveals no tenderness. The back is symmetrical on inspection without obvious abnormality. There is no CVA tenderness to palpation. No joint edema. LOWER EXTREMITIES: Calves are equal size bilaterally and non-tender. No edema. No discoloration. NEURO: Normal sensorium. No sensory or motor deficits noted. SKIN: No rash or jaundice noted. ED COURSE: Critical Care: I have personally spent greater than 35 minutes of critical care time in the direct management of this patient. This includes bedside care, interpretation of diagnostic studies, and testing, discussion with consultants, patient, and family members, and other required patient management activities. This 35 minutes is in excess of all separately billable procedures. Fernando Rocha MD Past Med/Surg History Medical History Abnormal CT scan, gastrointestinal tract Acute exacerbation of chronic obstructive pulmonary disease Alcoholism B12 deficiency Bilateral kidney stones Chronic obstructive pulmonary disease Chronic reflux esophagitis Chronic respiratory failure Dilation of thoracic aorta Influenza Lung cancer Osteoporosis Palliative care encounter Pneumonia Protein calorie malnutrition SIADH (syndrome of inappropriate ADH production) Squamous cell carcinoma of lung Unspecified cirrhosis of liver Surgical History S/P lobectomy of lung Family History Father Aortic aneurysm Hypertension Mother COPD (chronic obstructive pulmonary disease) CHF (congestive heart failure) Osteoporosis Renal failure Grandmother Diabetes Grandfather Skin cancer Other Myocardial infarction No pertinent family history in first degree relatives Denies family history of Ovarian cancer Prostate cancer Breast cancer Colorectal cancer Social History Smoking Status: Current every day smoker Tobacco Type: Cigarettes Cigarettes Per Day: 20; Second Hand Exposure: Yes; Hx Alcohol Use: Yes Alcohol type: hard liquor Alcohol Intake Frequency: 2-3 x/Week Alcohol Intake Frequency Comment: once a week Hx Substance Use: No Preferred Language: [place] Communication Ability: Effective Visual Impairment: No Limitations Food And Beverage Lead Required: No Beliefs That Will Affect Care: None marital status: Single Current Living Situation: Other current occupational status: disabled How many Children do You have: 3 Other Information That Helps Us Care for You: No Feels Safe at Home: Yes Safety Concerns: Feels Safe At This Time Dental Care, Regularly: No Physical Activity Frequency: Does not Exercise Seatbelt Use: always Sunscreen Use: No Assistive Devices: Cane Allergies Allergies Allergy/AdvReac Type Severity Reaction Status Date / Time Bactrim Allergy Severe TONGUE Verified 10/29/17 10:17 SWELLING sulfamethoxazole Allergy Severe TONGUE Verified 03/02/21 11:00 SWELLING trimethoprim Allergy Severe TONGUE Verified 03/02/21 11:00 SWELLING aspirin Allergy Unknown SEVERE Verified 03/02/21 11:00 STOMACH CRAMPING Penicillins Allergy Unknown Unknown Verified 03/02/21 11:00 Home Meds Home Medications Medication Instructions Recorded Confirmed multivit-iron 18 mg-folic acid 400 1 tab PO DAILY 05/22/20 03/02/21 mcg-calcium 500 mg-minerals tablet (Women's One Daily) budesonide-formoterol HFA 80 2 puff INHALATION QAM 03/02/21 03/02/21 mcg-4.5 mcg/actuation aerosol inhaler (Symbicort) fluticasone furoate 200 1 inh INHALATION QDL 03/02/21 03/02/21 mcg-vilanterol 25 mcg/dose inhalation powder (Breo Ellipta) tiotropium bromide 18 mcg capsule 1 cap INH QDL 03/02/21 03/02/21 with inhalation device (Spiriva with HandiHaler) Previous Rx's Medication Instructions Recorded albuterol sulfate 2.5 mg INH QID PRN #180 ml 06/26/20 mirtazapine 15 mg tablet 7.5 mg PO HS #30 tab 10/03/20 albuterol sulfate 90 mcg/actuation 2 puff INH .Q4-6HRS PRN #18 g 10/04/20 aerosol inhaler (ProAir HFA) nicotine 7 mg/24 hr daily 14 mg TRANSDERMAL QAM #30 ea 01/21/21 transdermal patch Results & Data (ED) Vital Signs Vital Signs - 24 hr 03/02/21 09:45 03/02/21 09:57 03/02/21 10:00 Temperature 36.9 C Temperature Source Oral Pulse Rate 125 H 120 H 119 H Pulse Rate [Right Finger] Pulse Rate from SpO2 Sensor 120 H 121 H Pulse Rhythm Regular Pulse Strength Normal Respiratory Rate 32 H 30 H 31 H Respiratory Effort / Characteristics Spontaneous Labored Respiratory Depth Retractive Respiratory Pattern Tachypnea Blood Pressure 114/76 111/72 Blood Pressure [Right Arm] Blood Pressure Mean 88 85 Blood Pressure Mean [Right Arm] Pulse Oximetry 90 94 95 Oxygen Delivery Method Nasal Cannula Oxygen Flow Rate 3 Sepsis Recent Fever Within 48 Hours Yes Sepsis New/Unexplained Change in Mental Status N/A Sepsis Action Taken by Nursing Physician Notified 03/02/21 10:31 03/02/21 11:11 03/02/21 11:13 Temperature Temperature Source Pulse Rate 112 H Pulse Rate [Right Finger] 112 H Pulse Rate from SpO2 Sensor Pulse Rhythm Pulse Strength Respiratory Rate 30 H 24 28 H Respiratory Effort / Characteristics Spontaneous Accessory Muscle Use Labored Nasal Congestion Retracting Short of Breath Non-Labored Respiratory Depth Normal Respiratory Pattern Blood Pressure Blood Pressure [Right Arm] 99/66 L Blood Pressure Mean Blood Pressure Mean [Right Arm] 77 Pulse Oximetry 98 98 Oxygen Delivery Method Nasal Cannula Nasal Cannula Nasal Cannula Oxygen Flow Rate 3 3 3 Sepsis Recent Fever Within 48 Hours Sepsis New/Unexplained Change in Mental Status Sepsis Action Taken by Nursing 03/02/21 11:51 Temperature Temperature Source Pulse Rate Pulse Rate [Right Finger] 110 H Pulse Rate from SpO2 Sensor Pulse Rhythm Pulse Strength Respiratory Rate 26 H Respiratory Effort / Characteristics Respiratory Depth Normal Respiratory Pattern Blood Pressure Blood Pressure [Right Arm] 107/59 L Blood Pressure Mean Blood Pressure Mean [Right Arm] 75 Pulse Oximetry 100 Oxygen Delivery Method Nasal Cannula Oxygen Flow Rate 3 Sepsis Recent Fever Within 48 Hours Sepsis New/Unexplained Change in Mental Status Sepsis Action Taken by Nursing Laboratory Data Attestation: I reviewed the patient's lab results. Result diagrams: 03/02/21 09:56 03/02/21 09:56 Lab Results 03/02/21 03/02/21 03/02/21 Range/Units 09:56 09:56 09:56 WBC 19.89 H (4.8-10.8) K/uL RBC 3.83 L (4.2-5.4) M/uL Hgb 12.7 (12.0-16.0) g/dL Hct 38.3 (37-47) % MCV 100.0 (80-100) fL MCH 33.2 (25-34) pg MCHC 33.2 (32-36) g/dL RDW Std Deviation 52.9 H (36.4-46.3) fL RDW Coeff of Niru 14.5 (11.5-14.5) % Plt Count 237 (130-400) K/uL MPV 9.5 (7.4-10.4) fL Immature Gran % (Auto) 0.2 % Neut % (Auto) 92.4 % Lymph % (Auto) 4.0 % [place] % (Auto) 3.3 % Eos % (Auto) 0.0 % Baso % (Auto) 0.1 % Neut # (Auto) 18.39 H (1.4-6.5) K/uL Lymph # (Auto) 0.80 L (1.2-3.4) K/uL [place] # (Auto) 0.65 H (0.11-0.59) K/uL Eos # (Auto) 0.00 (0-0.5) K/uL Baso # (Auto) 0.01 (0-0.2) K/uL Immature Gran # (Auto) 0.04 H (0.00-0.02) K/uL PT 11.0 (9.0-12.0) Seconds INR 1.1 (0.9-1.1) APTT 33.3 H (21.0-31.0) Seconds PTT Ratio 1.3 VBG pH (7.36-7.41) VBG pCO2 (38-50) mmHg VBG pO2 mmHg VBG HCO3 mmol/L VBG O2 Saturation % VBG Base Excess mEq/L Barometric Pressure mm/Hg Sodium 132 L (136-145) mmol/L Potassium 3.7 (3.5-5.1) mmol/L Chloride 91 L (98-107) mmol/L Carbon Dioxide 32 (21-32) mmol/L Anion Gap 8.0 (3-11) BUN 9 (7-18) mg/dl Creatinine 0.42 L (0.6-1.2) mg/dl Est Cr Clr Drug Dosing 75.3 ml/min Est GFR ( Amer) 123.8 ml/min Est GFR (Non-Af Amer) 106.8 ml/min BUN/Creatinine Ratio 21.9 H (10-20) Glucose 104 H (70-99) mg/dl Lactate (0.4-2.0) mmol/L Calcium 9.4 (8.5-10.1) mg/dl Phosphorus 2.7 (2.5-4.9) mg/dl Magnesium 1.3 L (1.8-2.4) mg/dl Total Bilirubin 0.9 (0.2-1) mg/dl AST 14 L (15-37) U/L ALT 10 L (12-78) Alkaline Phosphatase 118 H (45-117) U/L Troponin I < 0.015 (0-0.045) ng/ml Total Protein 7.4 (6.4-8.2) gm/dl Albumin 3.2 L (3.4-5.0) gm/dl Globulin 4.2 H (2.5-4.0) gm/dl Albumin/Globulin Ratio 0.8 L (0.9-2) Procalcitonin (0-0.5) ng/ml SARS-CoV-2 (PCR) (Negative) Influenza Type A (PCR) (Neg) Influenza Type B (PCR) (Neg) RSV (RT-PCR) (Neg) 03/02/21 03/02/21 03/02/21 Range/Units 09:56 10:10 10:25 WBC (4.8-10.8) K/uL RBC (4.2-5.4) M/uL Hgb (12.0-16.0) g/dL Hct (37-47) % MCV (80-100) fL MCH (25-34) pg MCHC (32-36) g/dL RDW Std Deviation (36.4-46.3) fL RDW Coeff of Niru (11.5-14.5) % Plt Count (130-400) K/uL MPV (7.4-10.4) fL Immature Gran % (Auto) % Neut % (Auto) % Lymph % (Auto) % [place] % (Auto) % Eos % (Auto) % Baso % (Auto) % Neut # (Auto) (1.4-6.5) K/uL Lymph # (Auto) (1.2-3.4) K/uL [place] # (Auto) (0.11-0.59) K/uL Eos # (Auto) (0-0.5) K/uL Baso # (Auto) (0-0.2) K/uL Immature Gran # (Auto) (0.00-0.02) K/uL PT (9.0-12.0) Seconds INR (0.9-1.1) APTT (21.0-31.0) Seconds PTT Ratio VBG pH (7.36-7.41) VBG pCO2 (38-50) mmHg VBG pO2 mmHg VBG HCO3 mmol/L VBG O2 Saturation % VBG Base Excess mEq/L Barometric Pressure mm/Hg Sodium (136-145) mmol/L Potassium (3.5-5.1) mmol/L Chloride (98-107) mmol/L Carbon Dioxide (21-32) mmol/L Anion Gap (3-11) BUN (7-18) mg/dl Creatinine (0.6-1.2) mg/dl Est Cr Clr Drug Dosing ml/min Est GFR ( Amer) ml/min Est GFR (Non-Af Amer) ml/min BUN/Creatinine Ratio (10-20) Glucose (70-99) mg/dl Lactate 1.2 (0.4-2.0) mmol/L Calcium (8.5-10.1) mg/dl Phosphorus (2.5-4.9) mg/dl Magnesium (1.8-2.4) mg/dl Total Bilirubin (0.2-1) mg/dl AST (15-37) U/L ALT (12-78) Alkaline Phosphatase (45-117) U/L Troponin I (0-0.045) ng/ml Total Protein (6.4-8.2) gm/dl Albumin (3.4-5.0) gm/dl Globulin (2.5-4.0) gm/dl Albumin/Globulin Ratio (0.9-2) Procalcitonin 0.60 H (0-0.5) ng/ml SARS-CoV-2 (PCR) NEGATIVE (Negative) Influenza Type A (PCR) Negative (Neg) Influenza Type B (PCR) Negative (Neg) RSV (RT-PCR) Negative (Neg) 03/02/21 Range/Units 10:25 WBC (4.8-10.8) K/uL RBC (4.2-5.4) M/uL Hgb (12.0-16.0) g/dL Hct (37-47) % MCV (80-100) fL MCH (25-34) pg MCHC (32-36) g/dL RDW Std Deviation (36.4-46.3) fL RDW Coeff of Niru (11.5-14.5) % Plt Count (130-400) K/uL MPV (7.4-10.4) fL Immature Gran % (Auto) % Neut % (Auto) % Lymph % (Auto) % [place] % (Auto) % Eos % (Auto) % Baso % (Auto) % Neut # (Auto) (1.4-6.5) K/uL Lymph # (Auto) (1.2-3.4) K/uL [place] # (Auto) (0.11-0.59) K/uL Eos # (Auto) (0-0.5) K/uL Baso # (Auto) (0-0.2) K/uL Immature Gran # (Auto) (0.00-0.02) K/uL PT (9.0-12.0) Seconds INR (0.9-1.1) APTT (21.0-31.0) Seconds PTT Ratio VBG pH 7.42 H (7.36-7.41) VBG pCO2 53 H (38-50) mmHg VBG pO2 46 mmHg VBG HCO3 34 mmol/L VBG O2 Saturation 80.0 % VBG Base Excess 8.0 mEq/L Barometric Pressure 734.9 mm/Hg Sodium (136-145) mmol/L Potassium (3.5-5.1) mmol/L Chloride (98-107) mmol/L Carbon Dioxide (21-32) mmol/L Anion Gap (3-11) BUN (7-18) mg/dl Creatinine (0.6-1.2) mg/dl Est Cr Clr Drug Dosing ml/min Est GFR ( Amer) ml/min Est GFR (Non-Af Amer) ml/min BUN/Creatinine Ratio (10-20) Glucose (70-99) mg/dl Lactate (0.4-2.0) mmol/L Calcium (8.5-10.1) mg/dl Phosphorus (2.5-4.9) mg/dl Magnesium (1.8-2.4) mg/dl Total Bilirubin (0.2-1) mg/dl AST (15-37) U/L ALT (12-78) Alkaline Phosphatase (45-117) U/L Troponin I (0-0.045) ng/ml Total Protein (6.4-8.2) gm/dl Albumin (3.4-5.0) gm/dl Globulin (2.5-4.0) gm/dl Albumin/Globulin Ratio (0.9-2) Procalcitonin (0-0.5) ng/ml SARS-CoV-2 (PCR) (Negative) Influenza Type A (PCR) (Neg) Influenza Type B (PCR) (Neg) RSV (RT-PCR) (Neg) Administered Medications Doxycycline Hyclate (Doxycycline Hyclate 100 Mg Cap) 100 mg PO BID [facility] Stop: 03/09/21 17:49 Last Admin: 03/02/21 18:16 Dose: 100 mg Documented by: [id number] Guaifenesin (Guaifenesin 600 Mg Tabcr) 600 mg PO Q12 TRACE Stop: 04/01/21 20:59 Last Admin: 03/02/21 21:00 Dose: 600 mg Documented by: [id number] Heparin Sodium (Porcine) (Heparin Sod 5,000 Unit/0.5 Ml Vial) 5,000 units SQ Q12 TRACE Stop: 04/01/21 20:59 Last Admin: 03/02/21 21:01 Dose: Not Given Documented by: [id number] Potassium Chloride/Sodium Chloride (Normal Saline W/20 Meq Kcl) 20 meq in 1,000 mls @ 100 mls/hr IV .Q10H [facility] Stop: 03/03/21 01:59 Last Admin: 03/02/21 16:36 Dose: 100 mls/hr Documented by: [id number] Ceftriaxone Sodium 1,000 mg/ (Dextrose) 50 mls @ 100 mls/hr IV Q24H [facility]; Protocol Stop: 03/09/21 16:59 Last Infusion: 03/02/21 17:17 Dose: 0 mls/hr Documented by: [id number] Admin: 03/02/21 16:36 Dose: 100 mls/hr Documented by: [id number] Methylprednisolone 40 mg/ (Syringe) 0.64 mls @ 1.5 mls/min IV Q8H [facility] Stop: 04/01/21 17:59 Last Admin: 03/02/21 18:08 Dose: 1.5 mls/min Documented by: [id number] Mirtazapine (Mirtazapine Tab 15 Mg Tab) 7.5 mg PO HS [facility] Stop: 04/01/21 20:59 Last Admin: 03/02/21 21:00 Dose: 7.5 mg Documented by: [id number] Nicotine (Nicotine 14 Mg/24 Hr Patch) 14 mg TD QAM [facility] Stop: 04/02/21 08:59 Last Admin: 03/02/21 19:59 Dose: 14 mg Documented by: [id number] Discontinued Medications Albuterol (Albut/Ipratrop 3mg/0.5mg Neb 3 Ml Vial) 3 ml NEB NOW STA; Protocol Stop: 03/02/21 09:48 Last Admin: 03/02/21 10:01 Dose: 3 ml Documented by: [id number] Doxycycline Hyclate (Doxycycline Hyclate 100 Mg Cap) Confirm Administered Dose 100 mg PO .STK-MED ONE Stop: 03/02/21 18:15 Last Admin: 03/02/21 18:16 Dose: Not Given Documented by: [id number] Guaifenesin (Guaifenesin 600 Mg Tabcr) 600 mg PO NOW STA Stop: 03/02/21 09:48 Last Admin: 03/02/21 10:01 Dose: 600 mg Documented by: [id number] Sodium Chloride (Nss) 500 mls @ 999 mls/hr IV .Q31M ONE Stop: 03/02/21 10:17 Last Infusion: 03/02/21 11:02 Dose: 0 mls/hr Documented by: [id number] Admin: 03/02/21 10:02 Dose: 999 mls/hr Documented by: [id number] Acetaminophen (Ofirmev) 1,000 mg in 100 mls @ 400 mls/hr IV NOW STA Stop: 03/02/21 10:01 Last Infusion: 03/02/21 11:01 Dose: 0 mls/hr Documented by: [id number] Admin: 03/02/21 10:01 Dose: 400 mls/hr Documented by: [id number] Cefepime HCl (Maxipime) 2,000 mg in 20 mls @ 5 mls/min IV NOW STA; Protocol Stop: 03/02/21 10:49 Last Admin: 03/02/21 11:05 Dose: 5 mls/min Documented by: [id number] Clindamycin Phosphate 600 mg/ (Dextrose) 54 mls @ 100 mls/hr IV ONE ONE Stop: 03/02/21 11:22 Last Infusion: 03/02/21 13:55 Dose: 0 mls/hr Documented by: [id number] Admin: 03/02/21 11:43 Dose: 100 mls/hr Documented by: [id number] Magnesium Sulfate/Dextrose (Magnesium Sulfate / D5w) 1 gm in 100 mls @ 100 mls/hr IV Q1H TRACE Stop: 03/02/21 13:26 Last Infusion: 03/02/21 13:56 Dose: 0 mls/hr Documented by: [id number] Admin: 03/02/21 13:28 Dose: 100 mls/hr Documented by: [id number] Infusion: 03/02/21 12:52 Dose: 100 mls/hr Documented by: [id number] Admin: 03/02/21 11:52 Dose: 100 mls/hr Documented by: [id number] Sodium Chloride (Nss) 500 mls @ 999 mls/hr IV .Q31M ONE Stop: 03/02/21 12:01 Last Infusion: 03/02/21 13:55 Dose: 0 mls/hr Documented by: [id number] Admin: 03/02/21 12:13 Dose: 999 mls/hr Documented by: [id number] Magnesium Sulfate/Dextrose (Magnesium Sulfate / D5w) 1 gm in 100 mls @ 50 m ls/hr IV Q2H TRACE Stop: 03/02/21 21:02 Last Infusion: 03/02/21 21:44 Dose: 0 mls/hr Documented by: [id number] Admin: 03/02/21 20:01 Dose: 50 mls/hr Documented by: [id number] Infusion: 03/02/21 20:01 Dose: 50 mls/hr Documented by: [id number] Admin: 03/02/21 18:09 Dose: 50 mls/hr Documented by: [id number] Methylprednisolone (Methylprednisolone 125 Mg/2 Ml Vial) 125 mg IV NOW STA Stop: 03/02/21 09:48 Last Admin: 03/02/21 10:01 Dose: 125 mg Documented by: [id number] Methylprednisolone (Methylprednisolone 40 Mg/Ml Vial) 40 mg IV Q8H TRACE Stop: 04/01/21 12:29 Last Admin: 03/02/21 12:54 Dose: 40 mg Documented by: [id number] Imaging Data Radiologist's Impression: Chest X-Ray 03/02/21 09:47 XR chest 1V portable CLINICAL HISTORY: SEPSIS TECHNIQUE: Single frontal radiograph of the chest was obtained. Comparison: Comparison is made to chest 2 views 01/21/2021 FINDINGS: No lines and tubes are seen. Again noted is right mediastinal shift. The cardiomediastinal borders are obscured. Interstitial thickening is seen in the lungs and there is opacification of the right lower thorax. IMPRESSION: Emphysema and interstitial changes. Stable findings status post right pneumonectomy. Right effusion cannot be entirely excluded. ACT 112: Negative or not required by law. Electronically signed by: Jamie Slaughter M.D. 03/02/2021 10:36 AM Discharge Plan Visit Data Chief Complaint: Shortness of Breath/Dyspnea Stated Complaint: SOB ED Provider: Fernando Rocha Discharge Problem: Acute and chronic respiratory failure, COPD exacerbation, Pneumonia, Hypomagnesemia, Leukocytosis Discharge Problem: Acute and chronic respiratory failure Qualifiers: Respiratory failure complication: unspecified whether with hypoxia or hypercapnia Qualified Code(s): J96.20 - Acute and chronic respiratory failure, unspecified whether with hypoxia or hypercapnia Pneumonia Qualifiers: Pneumonia type: due to unspecified organism Laterality: left Lung location: lower lobe of lung Qualified Code(s): J18.9 - Pneumonia, unspecified organism Leukocytosis Qualifiers: Leukocytosis type: unspecified Qualified Code(s): D72.829 - Elevated white blood cell count, unspecified
[2021-03-02 10:12] LABS: Basophils # (auto) 0.01 K/uL (0-0.2); Basophils % (auto) 0.1 %; Hematocrit (blood only) 38.3 % (37-47); Hemoglobin 12.7 g/dL (12.0-16.0); Immature Granulocytes # (auto) 0.04 K/uL (0.00-0.02); Immature Granulocytes % (auto) 0.2 %; Mean Corpuscular Hemoglobin 33.2 pg (25-34); Mean Corpuscular Hgb Conc 33.2 g/dL (32-36); Mean Platelet Volume 9.5 fL (7.4-10.4); Monocytes # (auto) 0.65 K/uL (0.11-0.59); Monocytes % (auto) 3.3 %; Neutrophils # (auto) 18.39 K/uL (1.4-6.5); Neutrophils % (auto) 92.4 %; Platelet Count 237 K/uL (130-400); RDW Coefficient of Variation 14.5 % (11.5-14.5); RDW Standard Deviation 52.9 fL (36.4-46.3); Red Blood Count 3.83 M/uL (4.2-5.4); White Blood Count 19.89 K/uL (4.8-10.8)
[2021-03-02 10:32] LABS: INR 1.1 (0.9-1.1); Partial Thromboplastin Ratio 1.3; Partial Thromboplastin Time 33.3 Seconds (21.0-31.0)
[2021-03-02 10:37] LABS: pH VBG 7.42 (7.36-7.41)
--- NOTE | 2021-03-02 10:37 | XRay Report ---
XR chest 1V portable CLINICAL HISTORY: SEPSIS TECHNIQUE: Single frontal radiograph of the chest was obtained. Comparison: Comparison is made to chest 2 views 01/21/2021 FINDINGS: No lines and tubes are seen. Again noted is right mediastinal shift. The cardiomediastinal borders ar e obscured. Interstitial thickening is seen in the lungs and there is opacification of the right lowe r thorax. IMPRESSION: Emphysema and interstitial changes. Stable findings status post right pneumonectomy. Right effusion c annot be entirely excluded. ACT 112: Negative or not required by law. Electronically signed by: Jamie Slaughter M.D. 03/02/2021 10:36 AM
[2021-03-02 10:38] LABS: Alanine Aminotransferase 10 (12-78); Albumin Level 3.2 gm/dl (3.4-5.0); Aspartate Aminotransferase 14 U/L (15-37); BUN Creatinine Ratio 21.9 (10-20); Blood Urea Nitrogen 9 mg/dl (7-18); Calcium 9.4 mg/dl (8.5-10.1); Carbon Dioxide 32 mmol/L (21-32); Chloride 91 mmol/L (98-107); Creatinine Clr Calc Pharmacy 75.3 ml/min; Est GFR (African American) 123.8 ml/min; Est GFR (Non-African American) 106.8 ml/min; Glucose 104 mg/dl (70-99); Magnesium 1.3 mg/dl (1.8-2.4); Potassium 3.7 mmol/L (3.5-5.1); Sodium 132 mmol/L (136-145)
[2021-03-02 10:43] LABS: Albumin Globulin Ratio 0.8 (0.9-2); Alkaline Phosphatase 118 U/L (45-117); Bilirubin,Total 0.9 mg/dl (0.2-1); Globulin 4.2 gm/dl (2.5-4.0); Phosphorus 2.7 mg/dl (2.5-4.9); Total Protein 7.4 gm/dl (6.4-8.2); Troponin I < 0.015 ng/ml (0-0.045)
[2021-03-02] MEDS ORDERED: CEFEPIME 2,000 MG/20 ML VIAL IV STA (10:46)
[2021-03-02] MEDS ORDERED: CLINDAMYCIN 600 MG in DEXTROSE 5% 50 ML IV ONE (10:50)
[2021-03-02 11:10] LABS: Influenza A virus by PCR Negative (Neg); Influenza B virus by PCR Negative (Neg); RSV by PCR Negative (Neg); SARS CoV2 RNA(COVID-19) InHosp NEGATIVE (Negative)
[2021-03-02] MEDS: MAGNESIUM SULFATE / D5W 1 GM/100 ML BAG IV SCH ×4 (11:52→20:01)
--- NOTE | 2021-03-02 15:00 | History & Physical Report ---
Date of Service March 02, 2021 Assessment & Plan (1) Acute exacerbation of chronic obstructive pulmonary disease: Plan: Mrs. Posadas is a 65-year-old female with a history of COPD, Squamous Cell Carcinoma of the Lung s/p Right Pneumonectomy 12 years ago, Malnutrition, Dilated Thoracic Aorta, GERD, Nephrolithiasis, SIADH, Osteoporosis, Alcohol Use, Cirrhosis, Vitamin B 12 Deficiency, and Thiamine Deficiency -- who presents to the ER today with an Acute Exacerbation of COPD, Probable LLL Pneumonia (chills and rigor), and possible Sepsis. She is complaining of increased shortness of breath, dyspnea on exertion, chest congestion, and worsening cough over the past 3 weeks, and more so over the past 1 week. Patient was hospitalized at [facility] from 01/14/2021 through 01/21/21 with a COPD exacerbation. She was treated with steroids, antibiotics, bronchodilato rs, and oxygen. She was subsequently discharged home on Prednisone 10 mg daily. Despite that, the patient does not feel as though she ever return to her baseline. She is chronically maintained on supplemental oxygen 3 liters/minute via nasal cannula. She has not increased her amount of oxygen that she uses, but over the past week patient becomes significantly short of breath just walking across the room, in often times her oxygen saturations drop into the 80s when she exerts herself. They come up relatively quickly when she rest. She does not feel particularly short winded when she is sitting quietly. In addition she has had a cough occasionally productive of a clear sputum, she has also been able to cough up some thicker yellow sputum from time to time, but admittedly her cough is weak. she admits to chest congestion and wheezing. She denies having any fevers, but she has been having chills from time to time and even shivers. She has not taken any objective temperature measurements. she does admit to occasional sharp chest pain which are very brief, unrelated to exertion, and without associated symptoms. She denies any headache or stiff neck. Denies any myalgias or arthralgias. Her appetite remains poor and she just does not feel like eating. Patient denies any hemoptysis. She typically does not lie down to sleep, she normally sleeps in a recliner and has done so for some time now. She denies any orthopnea or PND. She has not had any fluid retention or peripheral edema. Evaluation in the emergency room shows an elevated WBC count with a leftward shift, she is in a sinus tachycardia, venous blood gas pH is 7.42 with a venous blood gas pCO2 of 53 mmHg. she is noted to be hyponatremic with a serum sodium of 132 mmol/L, and she is hypomagnesemic at 1.3 mg/dL. Troponin I is undetectable at less than 0.015. Her procalcitonin is elevated at 0.60. Blood cultures have already been drawn. CXR shows opacity at the left base. Fortunately, the patient's oxygen saturations are staying in the upper 90s on 3 L/min via NC. Recommend the followin. Admit to Med-Surg with telemetry. 2. IV Methylprednisolone 40 mg q8H. 3. Start IV Ceftriaxone 1000 mg and doxycycline 100 mg p.o. twice daily to cover for community-acquired pneumonia as well as history of MRSA 4. Continue supplemental O2 at 3/L/min, may adjust to maintain SpO2 = or > 94%. 5. Continue Inhalers and nebulizer treatments. 6. Await blood culture results. 7. Monitor daily labs. 8. Strongly encouraged smoking cessation. 9. Check sputum culture (2) Pneumonia: Plan: -- As outlined above. (3) History of pneumonectomy: Plan: History of Right Pneumonectomy approximately 12 years ago for squamous cell carcinoma of the lung. -- Manage as outlined above. (4) Hypomagnesemia: Plan: -- Receiving IV magnesium in the ER. -- Recheck serum Mg in the morning. (5) SIADH (syndrome of inappropriate ADH production): Plan: Sodium at 132, which is close to her baseline but still a little bit lower than usual Could be some element of dehydration on top of her chronic SIADH Giving 1 L of crystalloid Admission and Anticipated Discharge Date Admission Date: March 02, 2021 History of Present Illness Chief Complaint: -- SOB, Chest Congestion. -- s/p Right Pneumonectomy. -- COPD Exacerbation. -- Probable Pneumonia. Primary Care Provider: Temitope Shaikh MD Mrs. Posadas is a 65-year-old female with a history of COPD, Squamous Cell Carcinoma of the Lung s/p Right Pneumonectomy 12 years ago, Malnutrition, Dilated Thoracic Aorta, GERD, Nephrolithiasis, SIADH, Osteoporosis, Alcohol Use, Cirrhosis, Vitamin B 12 Deficiency, and Thiamine Deficiency -- who presents to the ER today complaining of increased shortness of breath, dyspnea on exertion, chest congestion, and worsening cough over the past 3 weeks, and more so over the past 1 week. Patient was hospitalized at [facility] from 01/14/2021 through 01/21/21 with a COPD exacerbation. She was treated with steroids, antibiotics, bronchodilators, and oxygen. She was subsequently discharged home on Prednisone 10 mg daily. Despite that, the patient does not feel as though she ever return to her baseline. She is chronically maintained on supplemental oxygen 3 liters/minute via nasal cannula. She has not increased her amount of oxygen that she uses, but over the past week patient becomes significantly short of breath just walking across the room, in often times her oxygen saturations drop into the 80s when she exerts herself. They come up relatively quickly when she rest. She does not feel particularly short winded when she is sitting quietly. In addition she has had a cough occasionally productive of a clear sputum, she has also been able to cough up some thicker yellow sputum from time to time, but admittedly her cough is weak. she admits to chest congestion and wheezing. She denies having any fevers, but she has been having chills from time to time and even shivers. She has not taken any objective temperature measurements. she does admit to occasional sharp chest pain which are very brief, unrelated to exertion, and without associated symptoms. She denies any headache or stiff neck. Denies any myalgias or arthralgias. Her appetite remains poor and she just does not feel like eating. Patient denies any hemoptysis. She typically does not lie down to sleep, she normally sleeps in a recliner and has done so for some time now. She denies any orthopnea or PND. She has not had any fluid retention or peripheral edema. Patient remains compliant with her medications. She has not had any adverse side effects. She does however continue to smoke cigarettes. Allergies Allergy/AdvReac Type Severity Reaction Status Date / Time Bactrim Allergy Severe TONGUE Verified 10/29/17 10:17 SWELLING sulfamethoxazole Allergy Severe TONGUE Verified 03/02/21 11:00 SWELLING trimethoprim Allergy Severe TONGUE Verified 03/02/21 11:00 SWELLING aspirin Allergy Unknown SEVERE Verified 03/02/21 11:00 STOMACH CRAMPING Penicillins Allergy Unknown Unknown Verified 03/02/21 11:00 Home Medications Medication Instructions Recorded Confirmed Type multivit-iron 18 mg-folic acid 400 1 tab PO DAILY 05/22/20 03/02/21 History mcg-calcium 500 mg-minerals tablet (Women's One Daily) albuterol sulfate 2.5 mg INH QID PRN #180 ml 06/26/20 03/02/21 Rx mirtazapine 15 mg tablet 7.5 mg PO HS #30 tab 10/03/20 03/02/21 Rx albuterol sulfate 90 mcg/actuation 2 puff INH .Q4-6HRS PRN #18 g 10/04/20 03/02/21 Rx aerosol inhaler (ProAir HFA) nicotine 7 mg/24 hr daily 14 mg TRANSDERMAL QAM #30 ea 01/21/21 03/02/21 Rx transdermal patch budesonide-formoterol HFA 80 2 puff INHALATION QAM 03/02/21 03/02/21 History mcg-4.5 mcg/actuation aerosol inhaler (Symbicort) fluticasone furoate 200 1 inh INHALATION QDL 03/02/21 03/02/21 History mcg-vilanterol 25 mcg/dose inhalation powder (Breo Ellipta) tiotropium bromide 18 mcg capsule 1 cap INH QDL 03/02/21 03/02/21 History with inhalation device (Spiriva with HandiHaler) Past Med/Surg History Medical History (Updated 03/02/21 @ 17:46 by Chiqui Rondon MD) Abnormal CT scan, gastrointestinal tract Acute exacerbation of chronic obstructive pulmonary disease Alcoholism B12 deficiency Bilateral kidney stones Chronic obstructive pulmonary disease Chronic reflux esophagitis Chronic respiratory failure Dilation of thoracic aorta Influenza Lung cancer Osteoporosis Palliative care encounter Pneumonia Protein calorie malnutrition SIADH (syndrome of inappropriate ADH production) Squamous cell carcinoma of lung Unspecified cirrhosis of liver Surgical History (Updated 03/02/21 @ 14:45 by Jevon Momin PA-C) S/P lobectomy of lung Family History Father Aortic aneurysm Hypertension Mother COPD (chronic obstructive pulmonary disease) CHF (congestive heart failure) Osteoporosis Renal failure Grandmother Diabetes Grandfather Skin cancer Other Myocardial infarction No pertinent family history in first degree relatives Denies family history of Ovarian cancer Prostate cancer Breast cancer Colorectal cancer Social History Smoking Status: Current every day smoker Tobacco Type: Cigarettes Cigarettes Per Day: 20; Second Hand Exposure: Yes; Hx Alcohol Use: Yes Alcohol type: hard liquor Alcohol Intake Frequency: 2-3 x/Week Alcohol Intake Frequency Comment: once a week Hx Substance Use: No Preferred Language: Malawian Communication Ability: Effective Visual Impairment: No Limitations Inspector Optical Instrument Required: No Beliefs That Will Affect Care: None marital status: Single Current Living Situation: Spouse current occupational status: disabled How many Children do You have: 3 Feels Safe at Home: Yes Dental Care, Regularly: No Physical Activity Frequency: Does not Exercise Seatbelt Use: always Sunscreen Use: No Assistive Devices: Glasses and Oxygen - Continuous Review of Systems Review of Systems: Ten point review of systems was completed, and is otherwise negative with the exception of what is mentioned in the HPI. Physical Exam Physical Exam: GENERAL: Patient appears cachectic but she does not appear to be in any acute distress. HEENT: Head is atraumatic, normocephalic. sclerae anicteric. EOM's intact. Facies symmetric. No perioral cyanosis. NECK: No JVD. JVP is not elevated. Carotid upstrokes are + 2 bilaterally. CHEST/LUNGS: Absent breath sounds in the right base, otherwise she has scattered inspiratory and expiratory wheezes in the right upper chest, and in the left lung coley. CVS: S1 and S2 are best heard in the right hemithorax and are regular. No obvious murmurs, gallops, or rubs. PMI is nondisplaced. No lifts, heaves, or thrills. No abdominal aortic or renal bruits. ABDOMINAL EXAM: Bowel sounds are present. No masses, organomegaly, or tenderness. EXTREMITIES: No clubbing or cyanosis. No edema. Intact radial pulses bilaterally. NEUROLOGIC EXAM: Patient is awake, alert, and oriented. Pleasant and cooperative. Answers questions appropriately. Speech is clear. Normal movement in all 4 extremities. Gait pattern was not assessed. Results & Data Results & Data ([facility]) Vital Signs (Past 12 Hours) Vital Signs Temp Pulse Pulse Resp BP BP Pulse Ox 03/02/21 13:25 98 H 22 100/54 L 99 03/02/21 13:04 24 100/56 L 99 03/02/21 12:56 103 H 24 97/54 L 98 03/02/21 11:51 110 H 26 H 107/59 L 100 03/02/21 11:13 28 H 98 03/02/21 11:11 112 H 112 H 24 99/66 L 98 03/02/21 10:31 30 H 03/02/21 10:00 119 H 31 H 111/72 95 03/02/21 09:57 120 H 30 H 94 03/02/21 09:45 36.9 C 125 H 32 H 114/76 90 Laboratory Results Laboratory Results - last 24 hr 03/02/21 03/02/21 03/02/21 09:56 09:56 09:56 WBC 19.89 H RBC 3.83 L Hgb 12.7 Hct 38.3 MCV 100.0 MCH 33.2 MCHC 33.2 RDW Std Deviation 52.9 H RDW Coeff of Niru 14.5 Plt Count 237 MPV 9.5 Immature Gran % (Auto) 0.2 Neut % (Auto) 92.4 Lymph % (Auto) 4.0 Cloud % (Auto) 3.3 Eos % (Auto) 0.0 Baso % (Auto) 0.1 Neut # (Auto) 18.39 H Lymph # (Auto) 0.80 L Cloud # (Auto) 0.65 H Eos # (Auto) 0.00 Baso # (Auto) 0.01 Immature Gran # (Auto) 0.04 H PT 11.0 INR 1.1 APTT 33.3 H PTT Ratio 1.3 VBG pH VBG pCO2 VBG pO2 VBG HCO3 VBG O2 Saturation VBG Base Excess Barometric Pressure Sodium 132 L Potassium 3.7 Chloride 91 L Carbon Dioxide 32 Anion Gap 8.0 BUN 9 Creatinine 0.42 L Est Cr Clr Drug Dosing 75.3 Est GFR ( Amer) 123.8 Est GFR (Non-Af Amer) 106.8 BUN/Creatinine Ratio 21.9 H Glucose 104 H Lactate Calcium 9.4 Phosphorus 2.7 Magnesium 1.3 L Total Bilirubin 0.9 AST 14 L ALT 10 L Alkaline Phosphatase 118 H Troponin I < 0.015 Total Protein 7.4 Albumin 3.2 L Globulin 4.2 H Albumin/Globulin Ratio 0.8 L Procalcitonin SARS-CoV-2 (PCR) Influenza Type A (PCR) Influenza Type B (PCR) RSV (RT-PCR) 03/02/21 03/02/21 03/02/21 09:56 10:10 10:25 WBC RBC Hgb Hct MCV MCH MCHC RDW Std Deviation RDW Coeff of Niru Plt Count MPV Immature Gran % (Auto) Neut % (Auto) Lymph % (Auto) Cloud % (Auto) Eos % (Auto) Baso % (Auto) Neut # (Auto) Lymph # (Auto) Cloud # (Auto) Eos # (Auto) Baso # (Auto) Immature Gran # (Auto) PT INR APTT PTT Ratio VBG pH VBG pCO2 VBG pO2 VBG HCO3 VBG O2 Saturation VBG Base Excess Barometric Pressure Sodium Potassium Chloride Carbon Dioxide Anion Gap BUN Creatinine Est Cr Clr Drug Dosing Est GFR ( Amer) Est GFR (Non-Af Amer) BUN/Creatinine Ratio Glucose Lactate 1.2 Calcium Phosphorus Magnesium Total Bilirubin AST ALT Alkaline Phosphatase Troponin I Total Protein Albumin Globulin Albumin/Globulin Ratio Procalcitonin 0.60 H SARS-CoV-2 (PCR) NEGATIVE Influenza Type A (PCR) Negative Influenza Type B (PCR) Negative RSV (RT-PCR) Negative 03/02/21 10:25 WBC RBC Hgb Hct MCV MCH MCHC RDW Std Deviation RDW Coeff of Niru Plt Count MPV Immature Gran % (Auto) Neut % (Auto) Lymph % (Auto) Cloud % (Auto) Eos % (Auto) Baso % (Auto) Neut # (Auto) Lymph # (Auto) Cloud # (Auto) Eos # (Auto) Baso # (Auto) Immature Gran # (Auto) PT INR APTT PTT Ratio VBG pH 7.42 H VBG pCO2 53 H VBG pO2 46 VBG HCO3 34 VBG O2 Saturation 80.0 VBG Base Excess 8.0 Barometric Pressure 734.9 Sodium Potassium Chloride Carbon Dioxide Anion Gap BUN Creatinine Est Cr Clr Drug Dosing Est GFR ( Amer) Est GFR (Non-Af Amer) BUN/Creatinine Ratio Glucose Lactate Calcium Phosphorus Magnesium Total Bilirubin AST ALT Alkaline Phosphatase Troponin I Total Protein Albumin Globulin Albumin/Globulin Ratio Procalcitonin SARS-CoV-2 (PCR) Influenza Type A (PCR) Influenza Type B (PCR) RSV (RT-PCR) Diagnostic Findings CXR 03/02/21: No lines and tubes are seen. Again noted is right mediastinal shift. The cardiomediastinal borders are obscured. Interstitial thickening is seen in the lungs and there is opacification of the right lower thorax. IMPRESSION: Emphysema and interstitial changes. Stable findings status post right pneumonectomy. Right effusion cannot be entirely excluded. CHEST CTA 01/14/21: No pulmonary emboli are identified. There are stable postoperative findings following right pneumonectomy with fluid within the right pneumonectomy cavity and pleural thickening. This is unchanged. No enlarged thoracic lymph nodes are noted. Mediastinal shift is unchanged. Dilatation of the ascending aorta, measuring 3.8 cm is unchanged. There is no thoracic aortic dissection. No pericardial effusion. Lingular opacity is unchanged. This favors scarring. There are severe emphysema. A 5 mm irregular left lower lobe nodule on image 208 of [id number] is noted. Minimal airspace opacities within the left lower lobe are present. There is no pneumothorax. No suspicious lesions are identified within visualized portions of the bony thorax. Multiple old right-sided rib deformities are present. IMPRESSION: 1. No pulmonary emboli identified. 2. Stable postoperative findings following right pneumonectomy. 3. Minimal airspace opacity within the left lower lobe. 4. Severe emphysema. 5. 5 mm irregular nodule within the left lower lobe. This is indeterminate and may reflect scarring. However, a follow-up chest CT in 6 months to ensure stability is recommended. Medications Administered Medications multivit-iron 18 mg-folic acid 400 mcg-calcium 500 mg-minerals tablet (Women's One Daily) 1 tab PO DAILY 05/22/20 [History Confirmed 03/02/21] albuterol sulfate 2.5 mg INH QID PRN #180 ml 06/26/20 [Rx Confirmed 03/02/21] mirtazapine 15 mg tablet 7.5 mg PO HS #30 tab 10/03/20 [Rx Confirmed 03/02/21] albuterol sulfate 90 mcg/actuation aerosol inhaler (ProAir HFA) 2 puff INH .Q4- 6HRS PRN #18 g 10/04/20 [Rx Confirmed 03/02/21] nicotine 7 mg/24 hr daily transdermal patch 14 mg TRANSDERMAL QAM #30 ea 01/21/21 [Rx Confirmed 03/02/21] budesonide-formoterol HFA 80 mcg-4.5 mcg/actuation aerosol inhaler (Symbicort) 2 puff INHALATION QAM 03/02/21 [History Confirmed 03/02/21] fluticasone furoate 200 mcg-vilanterol 25 mcg/dose inhalation powder (Breo Ellipta) 1 inh INHALATION QDL 03/02/21 [History Confirmed 03/02/21] tiotropium bromide 18 mcg capsule with inhalation device (Spiriva with HandiHaler) 1 cap INH QDL 03/02/21 [History Confirmed 03/02/21] Home Medications Methylprednisolone (Methylprednisolone 40 Mg/Ml Vial) 40 mg IV Q8H TRACE Stop: 04/01/21 12:29 Last Admin: 03/02/21 12:54 Dose: 40 mg Documented by: Code Status & VTE Plan Code Status DNR/DNI VTE Prophylaxis Plan VTE Prophylaxis will be ordered: Yes Supervising Physician Co-Signing Physician Notes PA Supervision Note: I personally saw and examined the patient. I verified all [place] points and agree with GAMALIEL Momin with the following exceptions and/or additions: This patient is a 65-year-old female with history of severe COPD and right pneumonectomy for lung cancer, previous alcohol use disorder, B12 deficiency, osteoporosis, SIADH, here with worsening shortness of breath and acute on chronic respiratory failure with hypoxia and suspected community-acquired pneumonia, COPD exacerbation. She reports ongoing cough but not much sputum production, poor appetite, shortness of breath and not really able to move around much at all without significant desaturations. She has not felt back to her baseline for the last month since before her last hospitalization. She has had some loose stools. History and ROS reviewed as above Vitals reviewed Gen: [AAOx3, NAD, underweight, cachectic HEENT: Anicteric sclerae, EOMI CV: RRR no mgr nl S1S2 Pulm: Diminished breath sounds throughout, right greater than left, some rhonchi in the left lower lung field Abd: +BS soft NT ND no masses or hernias Ext: No edema, palpable pedal pulses Skin: No rashes, warm/dry Neuro: Full strength throughout Labs reviewed, chest x-ray image personally reviewed by me 65-year-old female here with history as above, with severe COPD with exacerbation acutely, community-acquired pneumonia, and acute on chronic respiratory failure with hypoxia -Patient does state to me that she does not want to be resuscitated or intubated-changed her CODE STATUS to DNR/DNI -Continue steroids, antibiotics as above, ceftriaxone and doxycycline to cover for atypicals as well as her history of MRSA nasal swab being positive -Replace with two more grams of IV magnesium sulfate for severe hypomagnesemia -Add on guaifenesin PG Care Time/CCT Total # of Minutes Spent Total Time Spent with Patient: Total time spent is greater than 50% in coordination of care (as documented) at patient's floor/unit and/or counseling patient:40 Coding Level of Care Code 20182 Initial Inpt Care Lvl 3 Diagnoses Acute exacerbation of chronic obstructive pulmonary disease J44.1 Pneumonia J18.9 Laterality: left Lung location: lower lobe of lung History of pneumonectomy Z98.890; Z90.2 Hypomagnesemia E83.42 SIADH (syndrome of inappropriate ADH production) E22.2 Time Spent (min) 55 (1) Pneumonia Laterality: left Lung location: lower lobe of lung
[2021-03-02] MEDS ORDERED: NITROGLYCERIN SL 0.4 MG/TAB TAB SL PRN (15:08)
[2021-03-02] MEDS ORDERED: MAGNESIUM HYDROXIDE SUSP 30 ML UDC PO PRN (15:08)
[2021-03-02] MEDS ORDERED: POLYETHYLENE (MIRALAX) 17 GM PACK PO PRN (15:08)
[2021-03-02] MEDS ORDERED: ACETAMINOPHEN 325 MG TAB PO PRN (15:08)
[2021-03-02] MEDS ORDERED: ZOLPIDEM TARTRATE 5 MG TAB PO PRN (15:08)
[2021-03-02] MEDS ORDERED: ONDANSETRON INJ 2 MG/ML 2 ML VIAL IV PRN (15:08)
[2021-03-02] MEDS ORDERED: MoRPHine SULFATE 2 MG/ML CARP IV PRN (15:08)
[2021-03-02] MEDS ORDERED: ALBUTEROL HFA 8 GM INHALER INH PRN (15:50)
[2021-03-02] MEDS ORDERED: NSS + 20MEQ KCL 20 MEQ/1,000 ML BAG IV SCH (16:00)
[2021-03-02] MEDS: cefTRIAXone SODIUM 1,000 MG in DEXTROSE 5% 50 ML IV SCH (16:36)
[2021-03-02] MEDS: methylPREDNISolone 40 MG in SYRINGE 0 ML IV SCH (18:08)
[2021-03-02] MEDS ORDERED: DOXYCYCLINE HYCLATE 100 MG CAP PO ONE (18:14)
[2021-03-02] MEDS: DOXYCYCLINE HYCLATE 100 MG CAP PO SCH (18:16)
[2021-03-02] MEDS: NICOTINE 14 MG/24 HR PATCH TD SCH (19:59)
[2021-03-02] MEDS: MIRTAZAPINE TAB 15 MG TAB PO SCH (21:00)
[2021-03-02] MEDS: guaiFENesin 600 MG TABCR PO SCH (21:00)
[2021-03-02] MEDS: HEPARIN SOD 5,000 UNIT/0.5 ML VIAL SQ SCH (21:01)
--- NOTE | 2021-03-02 22:46 | Electrocardiogram Report ---
Test Reason : Blood Pressure : / mmHG Vent. Rate : 121 BPM Atrial Rate : 121 BPM P-R Int : 120 ms QRS Dur : 072 ms QT Int : 308 ms P-R-T Axes : 057 057 067 degrees QTc Int : 437 ms Sinus tachycardia Right atrial enlargement Nonspecific T wave abnormality Abnormal ECG When compared with ECG of 14-JAN-2021 22:06, No significant change was found Confirmed by Santiago Herrera ([id number]) on 03/02/2021 10:46:44 PM Referred By: SELF Confirmed By:Santiago Herrera
[2021-03-02] MEDS ORDERED: LORazepam 1 MG TAB PO PRN (23:37)
[2021-03-03] MEDS ORDERED: MULTI-VITAMIN INFUSION 10 ML, THIAMINE HCL 100 MG, FOLIC ACID 1 MG in SODIUM CHLORIDE 0... IV ONE (00:15)
[2021-03-03] MEDS: methylPREDNISolone 40 MG in SYRINGE 0 ML IV SCH ×3 (01:12→16:58)
[2021-03-03 08:23] LABS: Hematocrit (blood only) 36.5 % (37-47); Hemoglobin 11.9 g/dL (12.0-16.0); Immature Granulocytes # (auto) 0.01 K/uL (0.00-0.02); Immature Granulocytes % (auto) 0.1 %; Lymphocytes # (auto) 0.19 K/uL (1.2-3.4); Lymphocytes % (auto) 1.4 %; Mean Corpuscular Hemoglobin 32.8 pg (25-34); Mean Corpuscular Hgb Conc 32.6 g/dL (32-36); Mean Corpuscular Volume 100.6 fL (80-100); Mean Platelet Volume 9.6 fL (7.4-10.4); Monocytes % (auto) 1.5 %; Neutrophils # (auto) 12.97 K/uL (1.4-6.5); Platelet Count 257 K/uL (130-400); RDW Coefficient of Variation 14.4 % (11.5-14.5); RDW Standard Deviation 52.8 fL (36.4-46.3); Red Blood Count 3.63 M/uL (4.2-5.4); White Blood Count 13.37 K/uL (4.8-10.8)
[2021-03-03] MEDS ORDERED: INFLUENZA VACCINE HIGH DOSE PF 65+ 0.7 ML SYR IM ONE (09:00)
[2021-03-03] MEDS ORDERED: AZITHROMYCIN 500 MG in DEXTROSE 5% 250 ML IV SCH (09:00)
[2021-03-03] MEDS ORDERED: BUDESONIDE/FORMOTEROL FUMARATE 80/4.5 60 PUFFS/INHALER INH SCH (09:00)
[2021-03-03] MEDS: THIAMINE HCL 100 MG TAB PO SCH ×3 (09:10→09:17)
[2021-03-03] MEDS: FOLIC ACID 1 MG TAB PO SCH ×3 (09:10→09:17)
[2021-03-03] MEDS: CEROVITE ADV FORMULA TAB PO SCH (09:10)
[2021-03-03] MEDS: guaiFENesin 600 MG TABCR PO SCH ×2 (09:11→21:45)
[2021-03-03] MEDS: DOXYCYCLINE HYCLATE 100 MG CAP PO SCH ×2 (09:11→21:45)
[2021-03-03] MEDS: HEPARIN SOD 5,000 UNIT/0.5 ML VIAL SQ SCH ×2 (09:12→21:47)
[2021-03-03 09:15] LABS: BUN Creatinine Ratio 26.1 (10-20); Calcium 8.6 mg/dl (8.5-10.1); Creatinine Clr Calc Pharmacy 94.8 ml/min; Est GFR (African American) 131.4 ml/min; Est GFR (Non-African American) 113.4 ml/min; Potassium 4.5 mmol/L (3.5-5.1)
[2021-03-03] MEDS: FLUTICASONE/VILANTEROL 200/25MCG 14 PUFFS/INHALER INH SCH (10:45)
[2021-03-03] MEDS: NICOTINE 14 MG/24 HR PATCH TD SCH (10:46)
[2021-03-03] MEDS: UMECLIDINIUM BROMIDE 62.5MCG/BLISTER 7 PUFFS/INHALER INH SCH (10:46)
[2021-03-03] MEDS: ALBUTEROL 0.083% NEBU SOLN 3 ML VIAL INH PRN (11:08)
--- NOTE | 2021-03-03 11:45 | Hospitalist Progress Note ---
Date of Service March 03, 2021 Assessment & Plan (1) Acute exacerbation of chronic obstructive pulmonary disease: Plan: Patient presents to the [facility] with worsening SOB and wheeze On 3L of oxygen at home Started on Solumedrol, Duonebs, and antibiotics feels a little better this morning, but still with wheeze and noisy breathing Continue treatment and supplemental oxygen follow up cultures (2) Pneumonia: Plan: Chest x ray shows lower lobe consolidation, procalcitonin is mildly elevated Cultures are pending continue empiric antibiotics (3) History of pneumonectomy: Plan: History of Right Pneumonectomy approximately 12 years ago for squamous cell carcinoma of the lung. -- Manage as outlined above. (4) Hypomagnesemia: Plan: -- replaced (5) SIADH (syndrome of inappropriate ADH production): Plan: serum sodium trending down will institute fluid restriction to 1L/day salt tablets 1gm daily Admission and Anticipated Discharge Date Admission Date: March 02, 2021 Subjective patient seen and examined this morning, still some SOB and wheeze Review of Systems Review of Systems: All systems reviewed are negative, apart from the ones contained in the history. Physical Exam Physical Exam: The patient is awake, alert and oriented 3, well developed and well nourished, normocephalic and atraumatic, lying in bed and in no acute distress. HEENT--PERRL, EOMI, mucous membranes and oropharynx mildly dry Neck--supple. No JVD. No bruits. Thyroid normal, trachea midline, no adenopathy. Heart--normal S1 and S2. No murmurs, rubs or gallops. Lungs--Reduce air entry, wheeze and rhonchi Abdomen--normal bowel sounds and soft. Mild epigastric and left sided abdominal pain Extremities--no cyanosis or clubbing. No edema. Dermatologic--normal skin turgor, normal color, no abnormal lymph nodes, no rash. Neurologic--cranial nerves II through XII grossly intact. Rheumatologic--normal range of motion. Psychiatric--normal affect. Results & Data Results & Data ([facility]) Vital Signs (Past 12 Hours) Vital Signs Temp Pulse Pulse Resp BP Pulse Ox 03/03/21 11:14 102 H 20 96 03/03/21 10:41 98.2 F 109 H 20 118/76 99 03/03/21 08:10 98.1 F 95 H 20 116/68 98 03/03/21 04:10 97.9 F 88 20 133/83 96 03/03/21 01:30 94 H PG Care Time/CCT Total # of Minutes Spent Total Time Spent with Patient: Total time spent is greater than 50% in coordination of care (as documented) at patient's floor/unit and/or counseling patient: Coding Level of Care Code 83929 Subseq Hosp Care Lvl 2 Diagnoses Acute exacerbation of chronic obstructive pulmonary disease J44.1 Pneumonia J18.9 Laterality: left Lung location: lower lobe of lung History of pneumonectomy Z98.890; Z90.2 Hypomagnesemia E83.42 SIADH (syndrome of inappropriate ADH production) E22.2 Time Spent (min) 35 (1) Pneumonia Laterality: left Lung location: lower lobe of lung
[2021-03-03] MEDS: SODIUM CHLORIDE 1 GM TABLET PO SCH (14:10)
[2021-03-03] MEDS: cefTRIAXone SODIUM 1,000 MG in DEXTROSE 5% 50 ML IV SCH (17:06)
[2021-03-03] MEDS: MIRTAZAPINE TAB 15 MG TAB PO SCH (21:46)
[2021-03-04] MEDS: methylPREDNISolone 40 MG in SYRINGE 0 ML IV SCH ×3 (01:57→17:21)
[2021-03-04 06:42] LABS: Hematocrit (blood only) 31.6 % (37-47); Hemoglobin 10.1 g/dL (12.0-16.0); Immature Granulocytes # (auto) 0.03 K/uL (0.00-0.02); Immature Granulocytes % (auto) 0.2 %; Lymphocytes # (auto) 0.18 K/uL (1.2-3.4); Lymphocytes % (auto) 1.3 %; Mean Corpuscular Hemoglobin 32.9 pg (25-34); Mean Corpuscular Volume 102.9 fL (80-100); Mean Platelet Volume 9.1 fL (7.4-10.4); Monocytes # (auto) 0.37 K/uL (0.11-0.59); Monocytes % (auto) 2.7 %; Neutrophils # (auto) 13.28 K/uL (1.4-6.5); Neutrophils % (auto) 95.8 %; Platelet Count 196 K/uL (130-400); RDW Coefficient of Variation 14.8 % (11.5-14.5); RDW Standard Deviation 55.6 fL (36.4-46.3); Red Blood Count 3.07 M/uL (4.2-5.4); White Blood Count 13.86 K/uL (4.8-10.8)
[2021-03-04 07:15] LABS: BUN Creatinine Ratio 55.3 (10-20); Calcium 8.7 mg/dl (8.5-10.1); Creatinine Clr Calc Pharmacy 121.1 ml/min; Est GFR (African American) 139.8 ml/min; Est GFR (Non-African American) 120.7 ml/min; Potassium 4.5 mmol/L (3.5-5.1)
[2021-03-04] MEDS: FOLIC ACID 1 MG TAB PO SCH (08:19)
[2021-03-04] MEDS: guaiFENesin 600 MG TABCR PO SCH ×2 (08:20→20:43)
[2021-03-04] MEDS: THIAMINE HCL 100 MG TAB PO SCH (08:20)
[2021-03-04] MEDS: DOXYCYCLINE HYCLATE 100 MG CAP PO SCH ×2 (08:20→20:43)
[2021-03-04] MEDS: CEROVITE ADV FORMULA TAB PO SCH (08:20)
[2021-03-04] MEDS: NICOTINE 14 MG/24 HR PATCH TD SCH (08:20)
[2021-03-04] MEDS: SODIUM CHLORIDE 1 GM TABLET PO SCH (08:20)
[2021-03-04] MEDS: HEPARIN SOD 5,000 UNIT/0.5 ML VIAL SQ SCH ×2 (08:21→20:44)
[2021-03-04] MEDS: ALBUT/IPRATROP 3MG/0.5MG NEB 3 ML VIAL NEB SCH ×4 (10:47→22:33)
--- NOTE | 2021-03-04 11:14 | Hospitalist Progress Note ---
Date of Service March 04, 2021 Assessment & Plan (1) Acute exacerbation of chronic obstructive pulmonary disease: Plan: SOB is better this morning, still some wheeze on exam. now beginning to bring up some sputum Cultures remain negative will continue empiric Ceftriaxone and Doxycycline Continue Duonebs, scheduled and PRN Continue Solumedrol and supplemental oxygen (2) Pneumonia: Plan: Chest x ray shows lower lobe consolidation, procalcitonin is mildly elevated Cultures are pending continue empiric Doxy and ceftriaxone (3) History of pneumonectomy: Plan: History of Right Pneumonectomy approximately 12 years ago for squamous cell carcinoma of the lung. -- Manage as outlined above. (4) Hypomagnesemia: Plan: -- replaced (5) SIADH (syndrome of inappropriate ADH production): Plan: Serum sodium now wnl will continue fluid restriction to 1L/day salt tablets 1gm daily Plan: continue hospitalization Admission and Anticipated Discharge Date Admission Date: March 02, 2021 Subjective patient seen and examined this morning, SOB still about the same, now beginning to cough up some sputum Review of Systems Review of Systems: All systems reviewed are negative, apart from the ones contained in the history. Physical Exam Physical Exam: The patient is awake, alert and oriented 3, well developed and well nourished, normocephalic and atraumatic, lying in bed and in no acute distress. HEENT--PERRL, EOMI, mucous membranes and oropharynx mildly dry Neck--supple. No JVD. No bruits. Thyroid normal, trachea midline, no adenopathy. Heart--normal S1 and S2. No murmurs, rubs or gallops. Lungs--Reduce air entry, wheeze and rhonchi Abdomen--normal bowel sounds and soft. Mild epigastric and left sided abdominal pain Extremities--no cyanosis or clubbing. No edema. Dermatologic--normal skin turgor, normal color, no abnormal lymph nodes, no rash. Neurologic--cranial nerves II through XII grossly intact. Rheumatologic--normal range of motion. Psychiatric--normal affect. Results & Data Results & Data ([facility]) Vital Signs (Past 12 Hours) Vital Signs Temp Pulse Pulse Resp BP BP Pulse Ox 03/04/21 10:48 116 H 20 98 03/04/21 07:48 98.2 F 103 H 20 137/79 98 03/04/21 03:15 98.1 F 112 H 18 125/76 94 03/04/21 01:06 113 H 03/03/21 23:32 97.9 F 70 18 135/76 100 PG Care Time/CCT Total # of Minutes Spent Total Time Spent with Patient: Total time spent is greater than 50% in coordination of care (as documented) at patient's floor/unit and/or counseling patient: Coding Level of Care Code 72052 Subseq Hosp Care Lvl 2 Diagnoses Acute exacerbation of chronic obstructive pulmonary disease J44.1 Pneumonia J18.9 Laterality: left Lung location: lower lobe of lung History of pneumonectomy Z98.890; Z90.2 Hypomagnesemia E83.42 SIADH (syndrome of inappropriate ADH production) E22.2 Time Spent (min) 35 (1) Pneumonia Laterality: left Lung location: lower lobe of lung
[2021-03-04] MEDS: FLUTICASONE/VILANTEROL 200/25MCG 14 PUFFS/INHALER INH SCH (12:11)
[2021-03-04] MEDS: UMECLIDINIUM BROMIDE 62.5MCG/BLISTER 7 PUFFS/INHALER INH SCH (12:11)
[2021-03-04] MEDS ORDERED: LORazepam 1 MG TAB PO PRN (13:11)
[2021-03-04] MEDS ORDERED: MULTI-VITAMIN INFUSION 10 ML, THIAMINE HCL 100 MG, FOLIC ACID 1 MG in SODIUM CHLORIDE 0... IV ONE (14:00)
[2021-03-04] MEDS ORDERED: METOPROLOL TARTRATE 25 MG TAB PO ONE (15:28)
[2021-03-04] MEDS: cefTRIAXone SODIUM 1,000 MG in DEXTROSE 5% 50 ML IV SCH (16:47)
[2021-03-04] MEDS: MIRTAZAPINE TAB 15 MG TAB PO SCH (20:43)
[2021-03-04] MEDS: METOPROLOL TARTRATE 25 MG TAB PO SCH (20:44)
[2021-03-05] MEDS ORDERED: SODIUM CHLORIDE 0.65% NA SOLN 45 ML (OCEAN) PRN
[2021-03-05] MEDS: methylPREDNISolone 40 MG in SYRINGE 0 ML IV SCH ×3 (01:40→16:28)
[2021-03-05] MEDS: ALBUT/IPRATROP 3MG/0.5MG NEB 3 ML VIAL NEB SCH ×6 (03:24→23:08)
[2021-03-05 06:56] LABS: Hematocrit (blood only) 31.6 % (37-47); Hemoglobin 9.8 g/dL (12.0-16.0); Immature Granulocytes # (auto) 0.02 K/uL (0.00-0.02); Immature Granulocytes % (auto) 0.2 %; Lymphocytes # (auto) 0.12 K/uL (1.2-3.4); Lymphocytes % (auto) 1.1 %; Mean Corpuscular Hemoglobin 32.9 pg (25-34); Monocytes % (auto) 3.7 %; Neutrophils # (auto) 10.35 K/uL (1.4-6.5); Platelet Count 188 K/uL (130-400); RDW Coefficient of Variation 14.5 % (11.5-14.5); RDW Standard Deviation 55.5 fL (36.4-46.3); Red Blood Count 2.98 M/uL (4.2-5.4); White Blood Count 10.89 K/uL (4.8-10.8)
[2021-03-05 07:29] LABS: BUN Creatinine Ratio 42.5 (10-20); Calcium 8.8 mg/dl (8.5-10.1); Creatinine Clr Calc Pharmacy 83.1 ml/min; Est GFR (African American) 122.8 ml/min; Potassium 4.7 mmol/L (3.5-5.1)
[2021-03-05] MEDS: guaiFENesin 600 MG TABCR PO SCH ×2 (08:36→20:19)
[2021-03-05] MEDS: METOPROLOL TARTRATE 25 MG TAB PO SCH ×2 (08:36→20:19)
[2021-03-05] MEDS: SODIUM CHLORIDE 1 GM TABLET PO SCH (08:36)
[2021-03-05] MEDS: CEROVITE ADV FORMULA TAB PO SCH (08:36)
[2021-03-05] MEDS: THIAMINE HCL 100 MG TAB PO SCH (08:36)
[2021-03-05] MEDS: DOXYCYCLINE HYCLATE 100 MG CAP PO SCH ×2 (08:37→20:19)
[2021-03-05] MEDS: NICOTINE 14 MG/24 HR PATCH TD SCH (08:38)
[2021-03-05] MEDS: FOLIC ACID 1 MG TAB PO SCH (08:41)
[2021-03-05] MEDS: HEPARIN SOD 5,000 UNIT/0.5 ML VIAL SQ SCH ×2 (08:41→20:17)
[2021-03-05] MEDS: UMECLIDINIUM BROMIDE 62.5MCG/BLISTER 7 PUFFS/INHALER INH SCH (11:25)
[2021-03-05] MEDS: FLUTICASONE/VILANTEROL 200/25MCG 14 PUFFS/INHALER INH SCH (11:26)
--- NOTE | 2021-03-05 13:07 | Hospitalist Progress Note ---
Date of Service March 05, 2021 Assessment & Plan (1) Acute exacerbation of chronic obstructive pulmonary disease: Plan: SOB is better this morning, still some wheeze on exam. continues to cough up sputum Cultures remain negative will continue empiric Ceftriaxone and Doxycycline Continue Duonebs, scheduled and PRN Continue Solumedrol and supplemental oxygen (2) Pneumonia: Plan: Chest x ray shows lower lobe consolidation, procalcitonin is mildly elevated Cultures are pending continue empiric Doxy and ceftriaxone (3) History of pneumonectomy: Plan: History of Right Pneumonectomy approximately 12 years ago for squamous cell carcinoma of the lung. -- Manage as outlined above. (4) Hypomagnesemia: Plan: -- replaced (5) SIADH (syndrome of inappropriate ADH production): Plan: Serum sodium now wnl will continue fluid restriction to 1L/day salt tablets 1gm daily Plan: continue hospitalization Admission and Anticipated Discharge Date Admission Date: March 02, 2021 Continued hospitalization Subjective patient seen and examined this morning, SOB much improved Review of Systems Review of Systems: All systems reviewed are negative, apart from the ones contained in the history. Physical Exam Physical Exam: The patient is awake, alert and oriented 3, well developed and well nourished, normocephalic and atraumatic, lying in bed and in no acute distress. HEENT--PERRL, EOMI, mucous membranes and oropharynx mildly dry Neck--supple. No JVD. No bruits. Thyroid normal, trachea midline, no adenopathy. Heart--normal S1 and S2. No murmurs, rubs or gallops. Lungs--Reduce air entry, wheeze and rhonchi Abdomen--normal bowel sounds and soft. Mild epigastric and left sided abdominal pain Extremities--no cyanosis or clubbing. No edema. Dermatologic--normal skin turgor, normal color, no abnormal lymph nodes, no rash. Neurologic--cranial nerves II through XII grossly intact. Rheumatologic--normal range of motion. Psychiatric--normal affect. Results & Data Results & Data ([facility]) Vital Signs (Past 12 Hours) Vital Signs Temp Pulse Pulse Resp BP BP Pulse Ox 03/05/21 12:42 99.0 F 89 18 114/65 96 03/05/21 11:18 98 H 20 93 03/05/21 09:02 98.6 F 89 18 118/66 95 03/05/21 08:43 100 H 18 90 03/05/21 07:13 83 03/05/21 03:24 91 H 24 97 03/05/21 03:06 97.5 F L 91 H 20 127/64 97 PG Care Time/CCT Total # of Minutes Spent Total Time Spent with Patient: Total time spent is greater than 50% in coordination of care (as documented) at patient's floor/unit and/or counseling patient: Coding Level of Care Code 35521 Subseq Hosp Care Lvl 2 Diagnoses Acute exacerbation of chronic obstructive pulmonary disease J44.1 Pneumonia J18.9 Laterality: left Lung location: lower lobe of lung History of pneumonectomy Z98.890; Z90.2 Hypomagnesemia E83.42 SIADH (syndrome of inappropriate ADH production) E22.2 Time Spent (min) 35 (1) Pneumonia Laterality: left Lung location: lower lobe of lung
[2021-03-05] MEDS: cefTRIAXone SODIUM 1,000 MG in DEXTROSE 5% 50 ML IV SCH (16:27)
[2021-03-05] MEDS: MIRTAZAPINE TAB 15 MG TAB PO SCH (20:19)
[2021-03-06] MEDS: methylPREDNISolone 40 MG in SYRINGE 0 ML IV SCH ×3 (02:27→17:12)
[2021-03-06] MEDS: ALBUT/IPRATROP 3MG/0.5MG NEB 3 ML VIAL NEB SCH ×6 (02:49→22:40)
--- NOTE | 2021-03-06 06:50 | Electrocardiogram Report ---
Test Reason : Blood Pressure : / mmHG Vent. Rate : 118 BPM Atrial Rate : 118 BPM P-R Int : 148 ms QRS Dur : 068 ms QT Int : 282 ms P-R-T Axes : 055 050 060 degrees QTc Int : 395 ms Sinus tachycardia Nonspecific ST and T wave abnormality Abnormal ECG When compared with ECG of 02-MAR-2021 09:48, No significant change was found Confirmed by All Parra ([id number]) on 03/06/2021 6:50:21 AM Referred By: REFERRED SELF Confirmed By:All Parra
[2021-03-06] MEDS: guaiFENesin 600 MG TABCR PO SCH ×2 (08:10→20:41)
[2021-03-06] MEDS: FOLIC ACID 1 MG TAB PO SCH (08:10)
[2021-03-06] MEDS: THIAMINE HCL 100 MG TAB PO SCH (08:10)
[2021-03-06] MEDS: METOPROLOL TARTRATE 25 MG TAB PO SCH ×2 (08:10→20:41)
[2021-03-06] MEDS: NICOTINE 14 MG/24 HR PATCH TD SCH (08:11)
[2021-03-06] MEDS: CEROVITE ADV FORMULA TAB PO SCH (08:12)
[2021-03-06] MEDS: SODIUM CHLORIDE 1 GM TABLET PO SCH (08:12)
[2021-03-06] MEDS: HEPARIN SOD 5,000 UNIT/0.5 ML VIAL SQ SCH ×3 (08:12→20:41)
[2021-03-06] MEDS: FLUTICASONE/VILANTEROL 200/25MCG 14 PUFFS/INHALER INH SCH (09:51)
[2021-03-06] MEDS: DOXYCYCLINE HYCLATE 100 MG CAP PO SCH ×2 (09:51→20:42)
[2021-03-06] MEDS: UMECLIDINIUM BROMIDE 62.5MCG/BLISTER 7 PUFFS/INHALER INH SCH (09:52)
--- NOTE | 2021-03-06 10:41 | Hospitalist Progress Note ---
Date of Service March 06, 2021 Assessment & Plan (1) Acute exacerbation of chronic obstructive pulmonary disease: Plan: SOB is better this morning, still some wheeze on exam, but much improved compared to admission. continues to cough up sputum Cultures remain negative will continue empiric Ceftriaxone and Doxycycline Continue Duonebs, scheduled and PRN Continue Solumedrol and supplemental oxygen (2) Pneumonia: Plan: Chest x ray shows lower lobe consolidation, procalcitonin is mildly elevated Cultures are pending continue empiric Doxy and ceftriaxone (3) History of pneumonectomy: Plan: History of Right Pneumonectomy approximately 12 years ago for squamous cell carcinoma of the lung. -- Manage as outlined above. (4) Hypomagnesemia: Plan: -- replaced (5) SIADH (syndrome of inappropriate ADH production): Plan: Serum sodium now wnl will continue fluid restriction to 1L/day salt tablets 1gm daily Plan: continue hospitalization, discharge to rehab or home with home health in the next 24-48 hrs Admission and Anticipated Discharge Date Admission Date: March 02, 2021 Patient really wants to go home with home health, but the family wants her to go to rehab for a few weeks. I spoke with the son, Teodoro who says patient is no longer fully able to take care of herself Subjective patient seen and examined this morning, SOB much improved, wheeze also improved Review of Systems Review of Systems: All systems reviewed are negative, apart from the ones contained in the history. Physical Exam Physical Exam: The patient is awake, alert and oriented 3, well developed and well nourished, normocephalic and atraumatic, lying in bed and in no acute distress. HEENT--PERRL, EOMI, mucous membranes and oropharynx mildly dry Neck--supple. No JVD. No bruits. Thyroid normal, trachea midline, no adenopathy. Heart--normal S1 and S2. No murmurs, rubs or gallops. Lungs--Reduce air entry, wheeze and rhonchi Abdomen--normal bowel sounds and soft. Mild epigastric and left sided abdominal pain Extremities--no cyanosis or clubbing. No edema. Dermatologic--normal skin turgor, normal color, no abnormal lymph nodes, no rash. Neurologic--cranial nerves II through XII grossly intact. Rheumatologic--normal range of motion. Psychiatric--normal affect. Results & Data Results & Data ([facility]) Vital Signs (Past 12 Hours) Vital Signs Temp Pulse Pulse Resp BP BP Pulse Ox 03/06/21 07:37 97.9 F 81 19 124/66 99 03/06/21 07:00 79 03/06/21 04:00 97.7 F 83 18 124/50 L 99 03/05/21 23:57 97.2 F L 98 H 16 114/62 98 03/05/21 23:10 82 12 97 PG Care Time/CCT Total # of Minutes Spent Total Time Spent with Patient: Total time spent is greater than 50% in coordination of care (as documented) at patient's floor/unit and/or counseling patient: Coding Level of Care Code 52638 Subseq Hosp Care Lvl 2 Diagnoses Acute exacerbation of chronic obstructive pulmonary disease J44.1 Pneumonia J18.9 Laterality: left Lung location: lower lobe of lung History of pneumonectomy Z98.890; Z90.2 Hypomagnesemia E83.42 SIADH (syndrome of inappropriate ADH production) E22.2 Time Spent (min) 35 (1) Pneumonia Laterality: left Lung location: lower lobe of lung
[2021-03-06] MEDS: cefTRIAXone SODIUM 1,000 MG in DEXTROSE 5% 50 ML IV SCH (17:12)
[2021-03-06] MEDS: MIRTAZAPINE TAB 15 MG TAB PO SCH (20:41)
[2021-03-07] MEDS: methylPREDNISolone 40 MG in SYRINGE 0 ML IV SCH ×2 (02:21→07:47)
[2021-03-07] MEDS: ALBUT/IPRATROP 3MG/0.5MG NEB 3 ML VIAL NEB SCH ×4 (04:02→14:18)
[2021-03-07] MEDS: SODIUM CHLORIDE 1 GM TABLET PO SCH (07:47)
[2021-03-07] MEDS: METOPROLOL TARTRATE 25 MG TAB PO SCH (07:47)
[2021-03-07] MEDS: THIAMINE HCL 100 MG TAB PO SCH (07:47)
[2021-03-07] MEDS: CEROVITE ADV FORMULA TAB PO SCH (07:47)
[2021-03-07] MEDS: DOXYCYCLINE HYCLATE 100 MG CAP PO SCH ×2 (07:47→20:03)
[2021-03-07] MEDS: guaiFENesin 600 MG TABCR PO SCH ×2 (07:48→20:03)
[2021-03-07] MEDS: HEPARIN SOD 5,000 UNIT/0.5 ML VIAL SQ SCH ×2 (07:48→19:50)
[2021-03-07] MEDS: NICOTINE 14 MG/24 HR PATCH TD SCH (07:48)
[2021-03-07] MEDS: FOLIC ACID 1 MG TAB PO SCH (08:03)
[2021-03-07] MEDS: FLUTICASONE/VILANTEROL 200/25MCG 14 PUFFS/INHALER INH SCH (12:15)
[2021-03-07] MEDS: UMECLIDINIUM BROMIDE 62.5MCG/BLISTER 7 PUFFS/INHALER INH SCH (12:15)
--- NOTE | 2021-03-07 12:36 | Hospitalist Progress Note ---
Date of Service March 07, 2021 Assessment & Plan (1) Acute exacerbation of chronic obstructive pulmonary disease: Plan: SOB is a little better, no wheezing, stop scheduled nebulizers reduce solu medrol to q12 today and start on Prednisone tomorrow Cultures remain negative will continue empiric Ceftriaxone and Doxycycline x 5 days Continue Duoneb PRN on her baseline oxygen of 3L (2) Pneumonia: Plan: Chest x ray shows lower lobe consolidation, procalcitonin is mildly elevated Cultures are negative continue empiric Doxy and ceftriaxone for 5-7 days (3) History of pneumonectomy: Plan: History of Right Pneumonectomy approximately 12 years ago for squamous cell carcinoma of the lung. -- Manage as outlined above. (4) Hypomagnesemia: Plan: -- replaced (5) SIADH (syndrome of inappropriate ADH production): Plan: Serum sodium now wnl will continue fluid restriction but liberalize to 1.8L a day she is very light headed and weak salt tablets 1gm daily (6) Protein calorie malnutrition: Plan: encourage protein intake she has muscle atrophy and weakness (7) Sinus tachycardia: Plan: stop metoprolol, reviewed both EKG she had sinus tachycardia in 110's, no arrhythmia she is feeling weak, lethargic, light headed, could be adverse effect from metoprolol Plan: continue hospitalization, discharge to rehab but likely not until after the weekend Admission and Anticipated Discharge Date Admission Date: March 02, 2021 Subjective patient feeling more light headed, dizzy, weak she got very anxious with breathing treatment discussed that she can drink more fluids, will make albuterol only PRN, stop metoprolol for now she is eating okay no chest pain, still has a feeling of dyspnea no wheezing on exam, talked about reducing steroids Review of Systems Review of Systems: All systems reviewed & are unremarkable except as noted in Subjective Constitutional: + fatigue and + weakness Respiratory: + cough and + dyspnea on exertion Cardiovascular: + lightheadedness Psychiatric: + anxiety Physical Exam Physical Exam: General: well developed, thin and frail, appears older than age, no distress Neck: supple, trachea midline, normal thyroid Lungs: clear to auscultation on left although sounds diminished, no sounds on right, normal respiratory effort, no accessory muscle use, no distress Heart: regular S1 and S2, no murmur, peripheral pulses normal, capillary refill normal, no edema Abdomen: soft, NT, ND, + BS, no hepatomegaly, normal to percussion Extremities: muscle atrophy in all limbs, no cyanosis, no petechiae, strength is generally weak Neuro: awake, cooperative, moves all extremities, no focal motor deficits, CN II-XII intact, sensation in extremities intact, normal speech Skin: warm, dry, no rash, normal turgor Psych: Awake, alert oriented x 3, euthymic affect Results & Data Results & Data ([facility]) Vital Signs (Past 12 Hours) Vital Signs Temp Pulse Resp BP Pulse Ox 03/07/21 11:51 36.9 C 84 18 116/71 94 03/07/21 10:49 86 18 98 03/07/21 07:26 71 16 98 03/07/21 07:09 36.4 C L 81 18 114/65 100 03/07/21 04:03 72 18 96 Medications Administered Current Inpatient Medications Acetaminophen (Acetaminophen 325 Mg Tab) 650 mg PO Q4H PRN PRN Reason: Pain or Fever Stop: 04/01/21 15:07 Al Hydrox/Mg Hydrox/Simethicone (Aluminum/Magnesium Susp 30 Ml Udc) 15 ml PO Q4H PRN PRN Reason: Dyspepsia Stop: 04/01/21 15:07 Albuterol (Albuterol Hfa 8 Gm Inhaler) 2 puffs INH Q4H PRN PRN Reason: SHORTNESS OF BREATH/WHEEZING Stop: 04/01/21 15:49 Albuterol (Albuterol 0.083% Nebu Soln 3 Ml Vial) 2.5 mg INH QID PRN; Protocol PRN Reason: Shortness Of Breath Or Wheezing Stop: 04/01/21 15:07 Last Admin: 03/03/21 11:08 Dose: 2.5 mg Documented by: Albuterol (Albut/Ipratrop 3mg/0.5mg Neb 3 Ml Vial) 3 ml NEB Q4R TRACE; Protocol Stop: 04/03/21 10:59 Last Admin: 03/07/21 10:49 Dose: 3 ml Documented by: Doxycycline Hyclate (Doxycycline Hyclate 100 Mg Cap) 100 mg PO BID TRACE Stop: 03/09/21 17:49 Last Admin: 03/07/21 07:47 Dose: 100 mg Documented by: Fluticasone/Vilanterol (Fluticasone/Vilanterol 200/25mcg 14 Puffs/Inhaler) 1 puffs INH QDL [facility] Stop: 04/02/21 11:29 Last Admin: 03/07/21 12:15 Dose: 1 puffs Documented by: Folic Acid (Folic Acid 1 Mg Tab) 1 mg PO QAM [facility] Stop: 04/01/21 08:59 Last Admin: 03/07/21 08:03 Dose: 1 mg Documented by: Guaifenesin (Guaifenesin 600 Mg Tabcr) 600 mg PO Q12 [facility] Stop: 04/01/21 20:59 Last Admin: 03/07/21 07:48 Dose: 600 mg Documented by: Heparin Sodium (Porcine) (Heparin Sod 5,000 Unit/0.5 Ml Vial) 5,000 units SQ Q12 [facility] Stop: 04/01/21 20:59 Last Admin: 03/07/21 07:48 Dose: 5,000 units Documented by: Ceftriaxone Sodium 1,000 mg/ (Dextrose) 50 mls @ 100 mls/hr IV Q24H [facility]; Protocol Stop: 03/09/21 16:59 Last Infusion: 03/06/21 17:44 Dose: Infused Documented by: Methylprednisolone 40 mg/ (Syringe) 0.64 mls @ 1.5 mls/min IV Q8H [facility] Stop: 04/01/21 17:59 Last Admin: 03/07/21 07:47 Dose: 1.5 mls/min Documented by: Lorazepam (Lorazepam 1 Mg Tab) 1 mg PO ONE PRN; Protocol PRN Reason: EtoH Withdrawal AWSS 6-10 Magnesium Hydroxide (Magnesium Hydroxide Susp 30 Ml Udc) 30 ml PO Q12H PRN PRN Reason: Constipation Stop: 04/01/21 15:07 Metoprolol Tartrate (Metoprolol Tartrate 25 Mg Tab) 25 mg PO BID [facility] Stop: 04/03/21 20:59 Last Admin: 03/07/21 07:47 Dose: 25 mg Documented by: Mirtazapine (Mirtazapine Tab 15 Mg Tab) 7.5 mg PO HS [facility] Stop: 04/01/21 20:59 Last Admin: 03/06/21 20:41 Dose: 7.5 mg Documented by: Miscellaneous (Remove Nicoderm Patch) 1 ea N/A DAILY@[id number] [facility] Stop: 04/02/21 08:58 Last Admin: 03/07/21 07:48 Dose: 1 ea Documented by: Morphine Sulfate (Morphine Sulfate 2 Mg/Ml [place]) 2 mg IV Q30M PRN PRN Reason: Chest Pain Stop: 03/16/21 15:07 Multivitamins/Minerals (Cerovite Adv Formula Tab) 1 tab PO DAILY TRACE Stop: 04/02/21 08:59 Last Admin: 03/07/21 07:47 Dose: 1 tab Documented by: Nicotine (Nicotine 14 Mg/24 Hr Patch) 14 mg TD QAM [facility] Stop: 04/02/21 08:59 Last Admin: 03/07/21 07:48 Dose: 14 mg Documented by: Nitroglycerin (Nitroglycerin Sl 0.4 Mg/Tab Tab) 0.4 mg SL UD PRN PRN Reason: Chest Pain Stop: 04/01/21 15:07 Ondansetron HCl (Ondansetron Inj 2 Mg/Ml 2 Ml Vial) 4 mg IV Q6H PRN PRN Reason: Nausea Stop: 04/01/21 15:07 Polyethylene Glycol (Polyethylene (Miralax) 17 Gm Pack) 17 gm PO DAILY PRN PRN Reason: Constipation Stop: 04/01/21 15:07 Sodium Chloride (Sodium Chloride 1 Gm Tablet) 1 gm PO DAILY [facility] Stop: 04/02/21 11:29 Last Admin: 03/07/21 07:47 Dose: 1 gm Documented by: Sodium Chloride (Sodium Chloride 0.65% Na Soln 45 Ml ([place])) 1 sprays NA PRN P RN PRN Reason: Congestion Stop: 04/04/21 00:00 Thiamine HCl (Thiamine Hcl 100 Mg Tab) 100 mg PO QAM [facility] Stop: 04/01/21 08:59 Last Admin: 03/07/21 07:47 Dose: 100 mg Documented by: Umeclidinium [place] (Umeclidinium [place] 62.5mcg/Blister 7 Puffs/Inhaler) 1 puffs INH QDL [facility] Stop: 04/02/21 11:29 Last Admin: 03/07/21 12:15 Dose: 1 puffs Documented by: PG Care Time/CCT Total # of Minutes Spent Total Time Spent with Patient: Total time spent is greater than 50% in coordination of care (as documented) at patient's floor/unit and/or counseling patient: Coding Level of Care Code 22354 Subseq Hosp Care Lv 3 Diagnoses Acute exacerbation of chronic obstructive pulmonary disease J44.1 Pneumonia J18.9 Laterality: left Lung location: lower lobe of lung History of pneumonectomy Z98.890; Z90.2 Hypomagnesemia E83.42 SIADH (syndrome of inappropriate ADH production) E22.2 Protein calorie malnutrition E46 Sinus tachycardia R00.0 (1) Pneumonia Laterality: left Lung location: lower lobe of lung
--- NOTE | 2021-03-07 14:03 | XRay Report ---
XR chest 2V PA/lateral CLINICAL HISTORY: dyspnea. COPD and right pneumonectomy COMPARISON STUDY: 03/02/2021 TECHNIQUE: 2 views of the chest FINDINGS: Frontal and lateral radiographs of the chest again demonstrate previous right pneumonectomy with shif t of the heart and mediastinal structures to the right. The findings are unchanged. There is again hy perinflation of the left hemithorax characteristic of underlying COPD. No confluent alveolar opacitie s are identified. Prominence of interstitial markings is again seen at the left lung base. There is n o evidence for left pleural effusion. There is no evidence for vascular congestion. There is no acute osseous pathology. IMPRESSION: No acute cardiopulmonary disease. Stable changes of right pneumonectomy. Underlying COPD is again seen is well. ACT 112: Negative or not required by law. Electronically signed by: Gary Mayberry M.D. 03/07/2021 2:01 PM
[2021-03-07] MEDS ORDERED: LORazepam 0.5 MG TAB PO STA (14:54)
[2021-03-07] MEDS ORDERED: LORazepam 0.5 MG TAB PO PRN (15:08)
[2021-03-07] MEDS: cefTRIAXone SODIUM 1,000 MG in DEXTROSE 5% 50 ML IV SCH (16:34)
[2021-03-07] MEDS: ALUMINUM/MAGNESIUM SUSP 30 ML UDC PO PRN (19:45)
[2021-03-07] MEDS: MIRTAZAPINE TAB 15 MG TAB PO SCH (20:02)
[2021-03-07] MEDS ORDERED: methylPREDNISolone 40 MG in SYRINGE 0 ML IV SCH (21:00)
[2021-03-08 06:28] LABS: Hemoglobin 11.9 g/dL (12.0-16.0); Mean Corpuscular Hemoglobin 32.6 pg (25-34); Mean Corpuscular Hgb Conc 31.3 g/dL (32-36); Mean Corpuscular Volume 104.1 fL (80-100); Mean Platelet Volume 9.4 fL (7.4-10.4); Platelet Count 200 K/uL (130-400); RDW Coefficient of Variation 14.2 % (11.5-14.5); RDW Standard Deviation 54.7 fL (36.4-46.3); Red Blood Count 3.65 M/uL (4.2-5.4)
[2021-03-08 07:16] LABS: BUN Creatinine Ratio 58.1 (10-20); Creatinine Clr Calc Pharmacy 89.4 ml/min; Est GFR (African American) 122.8 ml/min; Potassium 4.5 mmol/L (3.5-5.1)
[2021-03-08] MEDS: ALUMINUM/MAGNESIUM SUSP 30 ML UDC PO PRN (08:50)
[2021-03-08] MEDS: NICOTINE 14 MG/24 HR PATCH TD SCH (08:57)
[2021-03-08] MEDS: DOXYCYCLINE HYCLATE 100 MG CAP PO SCH (08:58)
[2021-03-08] MEDS: guaiFENesin 600 MG TABCR PO SCH (08:58)
[2021-03-08] MEDS: SODIUM CHLORIDE 1 GM TABLET PO SCH (08:58)
[2021-03-08] MEDS: THIAMINE HCL 100 MG TAB PO SCH (08:58)
[2021-03-08] MEDS: FOLIC ACID 1 MG TAB PO SCH (08:59)
[2021-03-08] MEDS: CEROVITE ADV FORMULA TAB PO SCH (08:59)
[2021-03-08] MEDS: HEPARIN SOD 5,000 UNIT/0.5 ML VIAL SQ SCH (09:00)
[2021-03-08] MEDS ORDERED: predniSONE 20 MG TAB PO SCH (09:00)
[2021-03-08] MEDS ORDERED: SACCHAROMYCES BOULARDII 250 MG CAP PO SCH (11:00)
[2021-03-08] MEDS: ALBUTEROL 0.083% NEBU SOLN 3 ML VIAL INH PRN (11:10)
[2021-03-08] MEDS: FLUTICASONE/VILANTEROL 200/25MCG 14 PUFFS/INHALER INH SCH (11:58)
[2021-03-08] MEDS: UMECLIDINIUM BROMIDE 62.5MCG/BLISTER 7 PUFFS/INHALER INH SCH (11:58)
--- NOTE | 2021-03-18 09:12 | Discharge Summary ---
Date of Service March 08, 2021 Admission HPI Per Admitting Provider Mrs. Posadas is a 65-year-old female with a history of COPD, Squamous Cell Carcinoma of the Lung s/p Right Pneumonectomy 12 years ago, Malnutrition, Dilated Thoracic Aorta, GERD, Nephrolithiasis, SIADH, Osteoporosis, Alcohol Use, Cirrhosis, Vitamin B 12 Deficiency, and Thiamine Deficiency -- who presents to the ER today complaining of increased shortness of breath, dyspnea on exertion, chest congestion, and worsening cough over the past 3 weeks, and more so over the past 1 week. Patient was hospitalized at [facility] from 01/14/2021 through 01/21/21 with a COPD exacerbation. She was treated with steroids, antibiotics, bronchodilators, and oxygen. She was subsequently discharged home on Prednisone 10 mg daily. Despite that, the patient does not feel as though she ever return to her baseline. She is chronically maintained on supplemental oxygen 3 liters/minute via nasal cannula. She has not increased her amount of oxygen that she uses, but over the past week patient becomes significantly short of breath just walking across the room, in often times her oxygen saturations drop into the 80s when she exerts herself. They come up relatively quickly when she rest. She does not feel particularly short winded when she is sitting quietly. In addition she has had a cough occasionally productive of a clear sputum, she has also been able to cough up some thicker yellow sputum from time to time, but adm ittedly her cough is weak. she admits to chest congestion and wheezing. She denies having any fevers, but she has been having chills from time to time and even shivers. She has not taken any objective temperature measurements. she does admit to occasional sharp chest pain which are very brief, unrelated to exertion, and without associated symptoms. She denies any headache or stiff neck. Denies any myalgias or arthralgias. Her appetite remains poor and she just does not feel like eating. Patient denies any hemoptysis. She typically does not lie down to sleep, she normally sleeps in a recliner and has done so for some time now. She denies any orthopnea or PND. She has not had any fluid retention or peripheral edema. Patient remains compliant with her medications. She has not had any adverse side effects. She does however continue to smoke cigarettes. Principal Diagnosis Acute exacerbation of COPD s/p right pneumonectomy Chronic dyspnea, hypoxemia Discharge Exam General: well developed, thin and frail, appears older than age, no distress Neck: supple, trachea midline, normal thyroid Lungs: clear to auscultation on left although sounds diminished, no sounds on right, normal respiratory effort, no accessory muscle use, no distress Heart: regular S1 and S2, no murmur, peripheral pulses normal, capillary refill normal, no edema Abdomen: soft, NT, ND, + BS, no hepatomegaly, normal to percussion Extremities: muscle atrophy in all limbs, no cyanosis, no petechiae, strength is generally weak Neuro: awake, cooperative, moves all extremities, no focal motor deficits, CN II-XII intact, sensation in extremities intact, normal speech Skin: warm, dry, no rash, normal turgor Psych: Awake, alert oriented x 3, euthymic affect Discharge Data Allergies Allergy/AdvReac Type Severity Reaction Status Date / Time Bactrim Allergy Severe TONGUE Verified 10/29/17 10:17 SWELLING sulfamethoxazole Allergy Severe TONGUE Verified 03/02/21 11:00 SWELLING trimethoprim Allergy Severe TONGUE Verified 03/02/21 11:00 SWELLING aspirin Allergy Unknown SEVERE Verified 03/02/21 11:00 STOMACH CRAMPING Penicillins Allergy Unknown Unknown Verified 03/02/21 11:00 Consultations 03/02/21 11:31 ED Decision to Admit Stat Hospital Course (1) Acute exacerbation of chronic obstructive pulmonary disease: SOB is a little better, no wheezing, stop scheduled nebulizers treated with Solu Medrol, tapered and then changed to Prednisone, will taper Prednisone on discharge Cultures remain negative treated with empiric Ceftriaxone and Doxycycline, completed full course, no abx on discharge Continue Duoneb PRN on her baseline oxygen of 3L (2) Pneumonia: Chest x ray shows lower lobe consolidation, procalcitonin is mildly elevated Cultures are negative continue empiric Doxy and ceftriaxone, completed full course (3) History of pneumonectomy: History of Right Pneumonectomy approximately 12 years ago for squamous cell carcinoma of the lung. -- Manage as outlined above. (4) Hypomagnesemia: -- replaced (5) SIADH (syndrome of inappropriate ADH production): Serum sodium now wnl will continue fluid restriction but liberalize to 1.8L a day salt tablets 1gm daily (6) Protein calorie malnutrition: encourage protein intake she has muscle atrophy and weakness (7) Sinus tachycardia: stop metoprolol, reviewed both EKG she had sinus tachycardia in 110's, no arrhythmia she is feeling weak, lethargic, light headed, could be adverse effect from metoprolol discharge to rehab Total Time Total Time Spent Total Time Spent (In Minutes): 32 minutes Discharge Plan Discharge Items Patient Disposition: Transfer Inpatient Rehab Fac Reason For Visit: COPD EXACERBATION, PNEUMONIA Discharge Diagnosis: COPD exacerbation Hyponatremia Pneumonia Condition on Discharge: Fair Goals: improve strength and mobility stay well nourished, well hydrated Activity: Resume your previous activity Weightbearing: Full weightbearing Non-emergency contact: Primary Care Provider Call non-emergency contact if: you have any medication questions Follow-up/Referrals: Temitope Shaikh MD [Primary Care Provider] - (one week after discharge from rehab) Diet: Regular Fluids: 1800ml (7 cups) Addtl Attending Provider Instructions: Medications: - FLORASTOR: probiotic for 1-2 weeks due to diarrhea, can use whatever is on formulary at [facility] - PREDNISONE: 40mg x 2, 20mg x 2 and 10mg x 2 - SODIUM CHLORIDE: 1gm daily for hyponatremia COPD exacerbation, pneumonia, only one lung due to history of right pneumonectomy treated with Solu Medrol and Rocephin/Doxycycline completed full course of antibiotics changed to Prednisone, quickly taper off she has been on her baseline 3L for days, no wheezing, diminished lung sounds but that is due to emphysema she needs therapy, she has walked in the hallway here Hyponatremia likely SIADH as urine osmolality has been inappropriately high, but lowest her sodium dropped to was 133 fluid restrict to 1800mL, sodium chloride tab daily follow sodium periodically, maybe in one month Diarrhea: likely from antibiotic use and antibiotics are now stopped give probiotics for 1-2 weeks Pending Studies at Discharge: No Stand-Alone Forms: My [facility] [employer] Skilled Items Patient informed of condition?: Yes DNR: Yes Discharge Level of Care: Acute rehab Communicable Disease: No Discharge Prognosis: Improving Lines: None Urinary Catheter: No Medications and DC Order Prescriptions: New sodium chloride 1 gram Tablet 1 g PO DAILY 30 Days Qty: 30 RF: 0 Saccharomyces boulardii [Florastor] 250 mg Capsule 250 mg PO DAILY 30 Days Qty: 30 RF: 0 Continued mirtazapine 15 mg tablet 7.5 mg PO HS Qty: 30 RF: 5 albuterol sulfate [ProAir HFA] 90 mcg/actuation HFA aerosol inhaler 2 puff INH .Q4-6HRS PRN (Reason: Shortness Of Breath Or Wheezing) Qty: 18 RF: 6 albuterol sulfate 2.5 mg /3 mL (0.083 %) solution for nebulization 2.5 mg INH QID PRN (Reason: Shortness Of Breath Or Wheezing) Qty: 180 RF: 8 Spiriva with HandiHaler 18 mcg capsule, w/inhalation device 1 cap INH QDL RF: 0 budesonide-formoterol [Symbicort] 80-4.5 mcg/actuation HFA aerosol inhaler 2 puff inhalation QAM RF: 0 Breo Ellipta 200-25 mcg/dose blister with device 1 inh inhalation QDL RF: 0 Women's One Daily 18 mg iron-400 mcg-500 mg Ca Tablet 1 tab PO DAILY RF: 0 nicotine 7 mg/24 hr Patch 24 Hour 14 mg transdermal QAM Qty: 30 RF: 0 Discharge Orders: Discharge Order (Routine); Ordered 03/08/21 Ordered By: Jamie Wilhelm Admission Data Admit Date/Time: 03/02/21 12:21 Attending Provider: Jamie Wilhelm Admit Provider: Chiqui Rondon Primary Care Provider: Temitope Shaikh Other Providers: Chiqui Rondon ; [facility] ; [facility] Other Interventions: Discharge Summary Assessment (RN) Last Done: 03/08/21 11:37 Coding Level of Care Code D/C DAY MANAGEMENT >30 MINS Diagnoses Acute exacerbation of chronic obstructive pulmonary disease J44.1 Pneumonia J18.9 Laterality: left Lung location: lower lobe of lung History of pneumonectomy Z98.890; Z90.2 Hypomagnesemia E83.42 SIADH (syndrome of inappropriate ADH production) E22.2 Protein calorie malnutrition E46 Sinus tachycardia R00.0
== END 2021-03-08 13:00 | DRG 193 ==
LOC: ED 09:38 → EDINP 12:21 → SUATTDRO 12:21 → 2N 13:45

== ENCOUNTER 2021-04-02 21:45 | Inpatient (IN) ==
[2021-04-02] MEDS ORDERED: SODIUM CHLORIDE 0.9% 500 ML IV STA (23:09)
[2021-04-02] MEDS ORDERED: MoRPHine SULFATE 4 MG/ML 1 ML CARP\\VIAL IV STA (23:09)
--- NOTE | 2021-04-02 23:12 | Emergency Department Note ---
Impression & Plan COVID-19, Pneumonia ADMIT ED Provider Note HPI: Patient is a 65-year-old female with history of COPD, on 4 L nasal cannula oxygen, history of squamous cell carcinoma of the lung status post right lung resection in 2008, presented to the emergency department with a chief complaint of shortness of breath and cough that has been worsening since yesterday. Patient states she is concerned she may have pneumonia. Patient states she has also had anterior chest pain that radiates to her back and worsens with coughing. On arrival here to the ED she is stable on her baseline nasal cannula oxygen, she is in no acute distress on my initial evaluation. Patient is satura ting well on her baseline nasal cannula oxygen, blood pressure stable, she is mildly tachycardic but otherwise in no acute distress. ROS: -Cardio: Chest discomfort -Pulmonary: Cough, shortness of breath *10 point review systems was conducted and is otherwise negative unless stated above *Outpatient medications and allergy history reviewed PE: General: Alert, NAD, cachectic and frail-appearing HEENT: Normocephalic, atraumatic Eyes: Extraocular eye movement is intact, no scleral erythema Pulmonary: Diminished airflow on the left side, no air movement noted on the right side, no wheezing, no crackles Cardio: Regular rate and rhythm GI: Abdomen is soft, nontender : No suprapubic tenderness MSK: No evidence of trauma or malformation of the extremities, no edema Skin: No evidence of rash Neuro: Alert, no focal deficits Psychiatric: Cooperative CTA CHEST: No evidence of an acute pulmonary embolus. Consolidation within the base of the left lower lobe. Severe left lung centrilobular emphysema with total right pneumonectomy. Expansion of the left lung results in significant rightward deviation of the mediastinum which is unchanged. Trace left pleural effusion. Comparison made with 01/14/2021 CT pulmonary angiogram Radiologist: Delfin Payne MD site monitor: - An order was placed for continuous cardiac monitoring - Patient was noted to be in sinus rhythm with rate of 100 EKG: Rate: 104 Rhythm: Sinus rhythm Intervals: Within normal limits Time: 2212 ST changes: No ST elevation Medical Decision Making: Patient presented to the emergency department with cough, states she also has some acute on chronic upper back pain and chest pain. She does have a history of right-sided lung resection, she is on 4 L of nasal cannula oxygen at baseline. She is saturating well on her nasal cannula oxygen on arrival. Lab work was initiated, COVID-19 test was ordered, COVID-19 test is positive. Lab work shows an elevated procalcitonin but no evidence of leukocytosis or left shift. Troponin is negative x1. Patient is noted to be hyponatremic beyond baseline at 124. She was given IV fluids in the ED with 500 cc bolus. does not show any ischemic changes. Venous blood gas shows slight hypercarbic respiratory acidosis with a pH of 7.30 and PCO2 of 59. Imaging of the chest was obtained and does not show any evidence of pulmonary embolism, there is evidence of consolidation within the base of the left lower lobe. Patient is status post right total pneumonectomy. My reassessment the patient states that she feels unwell to go home, states she is mostly under her own care at home. States that she still feels some increased work of breathing and cough. Given her medical history including right total pneumonectomy with findings of pneumonia in her remaining lung in the setting of an elevated procalcitonin, blood cultures were drawn, patient will be treated with ceftriaxone and azithromycin. Hospitalist service will be consulted for admission. Patient is in agreement to the above plan and she was admitted in stable condition. Diagnosis: 1. COVID-19 infection/pneumonia 2. Left lower lobe pneumonia in the setting of previous right total pneumonectomy 3. COPD patient on supplemental oxygen 4. Hyponatremia 5. Acute on chronic hypercarbic respiratory failure Disposition: Admission Rudy Polanco DO Emergency Medicine Past Med/Surg History Medical History (Updated 04/03/21 @ 02:36 by Rudy Polanco DO) Abnormal CT scan, gastrointestinal tract Alcoholism B12 deficiency Bilateral kidney stones Chronic obstructive pulmonary disease Chronic reflux esophagitis Chronic respiratory failure Dilation of thoracic aorta Hypomagnesemia Influenza Leukocytosis Lung cancer Osteoporosis Palliative care encounter Pneumonia Pneumonia Protein calorie malnutrition SIADH (syndrome of inappropriate ADH production) Squamous cell carcinoma of lung Unspecified cirrhosis of liver Surgical History (Updated 03/19/21 @ 09:43 by GIUSEPPE Das) History of pneumonectomy S/P lobectomy of lung Family History Father Aortic aneurysm Hypertension Mother COPD (chronic obstructive pulmonary disease) CHF (congestive heart failure) Osteoporosis Renal failure Grandmother Diabetes Grandfather Skin cancer Other Myocardial infarction No pertinent family history in first degree relatives Denies family history of Ovarian cancer Prostate cancer Breast cancer Colorectal cancer Social History Smoking Status: Never smoker Tobacco Type: Cigarettes Cigarettes Per Day: 20; Second Hand Exposure: Yes; Hx Alcohol Use: Yes Alcohol type: hard liquor Alcohol Intake Frequency: 2-3 x/Week Alcohol Intake Frequency Comment: once a week Hx Substance Use: No Preferred Language: Telugu Communication Ability: Effective Visual Impairment: No Limitations Gun Fertilizer Required: No Beliefs That Will Affect Care: None marital status: Single Current Living Situation: Other current occupational status: disabled How many Children do You have: 3 Feels Safe at Home: Yes Dental Care, Regularly: No Physical Activity Frequency: Does not Exercise Seatbelt Use: always Sunscreen Use: No Assistive Devices: Oxygen - Continuous Allergies Allergies Allergy/AdvReac Type Severity Reaction Status Date / Time aspirin Allergy Severe SEVERE Verified 04/02/21 22:09 STOMACH CRAMPING sulfamethoxazole Allergy Severe TONGUE Verified 04/02/21 22:09 SWELLING trimethoprim Allergy Severe TONGUE Verified 04/02/21 22:09 SWELLING Penicillins Allergy Unknown Unknown Verified 04/02/21 22:09 Home Meds Home Medications Medication Instructions Recorded Confirmed fluticasone furoate 200 1 inh INHALATION QDL 03/02/21 04/02/21 mcg-vilanterol 25 mcg/dose inhalation powder (Breo Ellipta) tiotropium bromide 18 mcg capsule 1 cap INH QDL 03/02/21 04/02/21 with inhalation device (Spiriva with HandiHaler) Previous Rx's Medication Instructions Recorded albuterol sulfate 2.5 mg INH QID PRN #180 ml 06/26/20 mirtazapine 15 mg tablet 7.5 mg PO HS #30 tab 10/03/20 albuterol sulfate 90 mcg/actuation 2 puff INH .Q4-6HRS PRN #18 g 10/04/20 aerosol inhaler (ProAir HFA) nicotine 7 mg/24 hr daily 14 mg TRANSDERMAL QAM #30 ea 01/21/21 transdermal patch budesonide-formoterol HFA 80 2 puff INHALATION QAM #10.2 g 03/26/21 mcg-4.5 mcg/actuation aerosol inhaler (Symbicort) Results & Data (ED) Vital Signs Vital Signs - 24 hr 04/02/21 21:30 04/02/21 23:32 04/02/21 23:42 Temperature 37.7 C H Temperature Source Oral Pulse Rate 106 H 99 H Pulse Rate from SpO2 Sensor Pulse Rhythm Regular Pulse Strength Normal Respiratory Rate 22 26 H Respiratory Effort / Characteristics Short of Breath Non-Labored Spontaneous Short of Breath Respiratory Depth Normal Normal Respiratory Pattern Regular Regular Blood Pressure 117/53 L 96/55 L Blood Pressure Mean 74 68 Blood Pressure Position Lying Pulse Oximetry 99 97 Oxygen Delivery Method Nasal Cannula Nasal Cannula Nasal Cannula Oxygen Flow Rate 4 4 4 Sepsis Recent Fever Within 48 Hours No Sepsis New/Unexplained Change in Mental Status No Sepsis Action Taken by Nursing Physician Notified 04/02/21 23:45 04/03/21 00:30 04/03/21 01:00 Temperature Temperature Source Pulse Rate 96 H 97 H Pulse Rate from SpO2 Sensor 96 H 97 H Pulse Rhythm Pulse Strength Respiratory Rate 32 H 30 H Respiratory Effort / Characteristics Respiratory Depth Respiratory Pattern Blood Pressure 109/62 98/53 L Blood Pressure Mean 77 68 Blood Pressure Position Pulse Oximetry 97 98 Oxygen Delivery Method Nasal Cannula Nasal Cannula Nasal Cannula Oxygen Flow Rate 4 4 Sepsis Recent Fever Within 48 Hours Sepsis New/Unexplained Change in Mental Status Sepsis Action Taken by Nursing 04/03/21 01:30 Temperature Temperature Source Pulse Rate 96 H Pulse Rate from SpO2 Sensor 95 H Pulse Rhythm Pulse Strength Respiratory Rate 37 H Respiratory Effort / Characteristics Respiratory Depth Respiratory Pattern Blood Pressure 106/63 Blood Pressure Mean 77 Blood Pressure Position Pulse Oximetry 99 Oxygen Delivery Method Nasal Cannula Oxygen Flow Rate Sepsis Recent Fever Within 48 Hours Sepsis New/Unexplained Change in Mental Status Sepsis Action Taken by Nursing Laboratory Data Result diagrams: 04/02/21 23:25 04/02/21 23:25 Lab Results 04/02/21 04/02/21 04/02/21 Range/Units 23:25 23:25 23:25 WBC 5.04 (4.8-10.8) K/uL RBC 3.33 L (4.2-5.4) M/uL Hgb 10.5 L (12.0-16.0) g/dL Hct 32.1 L (37-47) % MCV 96.4 (80-100) fL MCH 31.5 (25-34) pg MCHC 32.7 (32-36) g/dL RDW Std Deviation 45.9 (36.4-46.3) fL RDW Coeff of Niru 13.1 (11.5-14.5) % Plt Count 156 (130-400) K/uL MPV 9.9 (7.4-10.4) fL Immature Gran % (Auto) 0.2 % Neut % (Auto) 94.4 % Lymph % (Auto) 1.4 % Bates % (Auto) 4.0 % Eos % (Auto) 0.0 % Baso % (Auto) 0.0 % Neut # (Auto) 4.76 (1.4-6.5) K/uL Lymph # (Auto) 0.07 L (1.2-3.4) K/uL Bates # (Auto) 0.20 (0.11-0.59) K/uL Eos # (Auto) 0.00 (0-0.5) K/uL Baso # (Auto) 0.00 (0-0.2) K/uL Immature Gran # (Auto) 0.01 (0.00-0.02) K/uL PT 11.2 (9.0-12.0) Seconds INR 1.1 (0.9-1.1) APTT 39.2 H (21.0-31.0) Seconds PTT Ratio 1.5 VBG pH (7.36-7.41) VBG pCO2 (38-50) mmHg VBG pO2 mmHg VBG HCO3 mmol/L VBG O2 Saturation % VBG Base Excess mEq/L Barometric Pressure mm/Hg Sodium 124 L (136-145) mmol/L Potassium 3.8 (3.5-5.1) mmol/L Chloride 90 L (98-107) mmol/L Carbon Dioxide 25 (21-32) mmol/L Anion Gap 9 (3-11) BUN 11 (6-23) mg/dl Creatinine 0.41 L (0.6-1.2) mg/dl Est Cr Clr Drug Dosing 140.8 ml/min Est GFR ( Amer) 124.8 ml/min Est GFR (Non-Af Amer) 107.7 ml/min BUN/Creatinine Ratio 26.8 H (10-20) Glucose 105 H (70-99(Fasting)) mg/dl Calcium 7.8 L (8.5-10.1) mg/dl Total Bilirubin 0.3 (0.2-1.0) mg/dl AST 23 (13-39) U/L ALT 16 (7-52) U/L Alkaline Phosphatase 78 (34-104) U/L Troponin I < 0.03 (0-0.04) ng/ml Total Protein 5.8 L (6.0-8.3) gm/dl Albumin 3.4 (3.4-5.0) gm/dl Globulin 2.4 L (2.5-4.0) gm/dl Albumin/Globulin Ratio 1.4 (0.9-2) Lipase 12 (11-82) U/L Procalcitonin (0-0.5) ng/ml SARS-CoV-2 (PCR) (Negative) Influenza Type A (PCR) (Neg) Influenza Type B (PCR) (Neg) RSV (RT-PCR) (Neg) 04/02/21 04/02/21 04/02/21 Range/Units 23:30 23:53 23:54 WBC (4.8-10.8) K/uL RBC (4.2-5.4) M/uL Hgb (12.0-16.0) g/dL Hct (37-47) % MCV (80-100) fL MCH (25-34) pg MCHC (32-36) g/dL RDW Std Deviation (36.4-46.3) fL RDW Coeff of Niru (11.5-14.5) % Plt Count (130-400) K/uL MPV (7.4-10.4) fL Immature Gran % (Auto) % Neut % (Auto) % Lymph % (Auto) % Bates % (Auto) % Eos % (Auto) % Baso % (Auto) % Neut # (Auto) (1.4-6.5) K/uL Lymph # (Auto) (1.2-3.4) K/uL Bates # (Auto) (0.11-0.59) K/uL Eos # (Auto) (0-0.5) K/uL Baso # (Auto) (0-0.2) K/uL Immature Gran # (Auto) (0.00-0.02) K/uL PT (9.0-12.0) Seconds INR (0.9-1.1) APTT (21.0-31.0) Seconds PTT Ratio VBG pH 7.30 L (7.36-7.41) VBG pCO2 59 H (38-50) mmHg VBG pO2 25 mmHg VBG HCO3 28 mmol/L VBG O2 Saturation < 60.0 % VBG Base Excess 1.0 mEq/L Barometric Pressure 723.3 mm/Hg Sodium (136-145) mmol/L Potassium (3.5-5.1) mmol/L Chloride (98-107) mmol/L Carbon Dioxide (21-32) mmol/L Anion Gap (3-11) BUN (6-23) mg/dl Creatinine (0.6-1.2) mg/dl Est Cr Clr Drug Dosing ml/min Est GFR ( Amer) ml/min Est GFR (Non-Af Amer) ml/min BUN/Creatinine Ratio (10-20) Glucose (70-99(Fasting)) mg/dl Calcium (8.5-10.1) mg/dl Total Bilirubin (0.2-1.0) mg/dl AST (13-39) U/L ALT (7-52) U/L Alkaline Phosphatase (34-104) U/L Troponin I (0-0.04) ng/ml Total Protein (6.0-8.3) gm/dl Albumin (3.4-5.0) gm/dl Globulin (2.5-4.0) gm/dl Albumin/Globulin Ratio (0.9-2) Lipase (11-82) U/L Procalcitonin 0.67 H (0-0.5) ng/ml SARS-CoV-2 (PCR) POSITIVE A* (Negative) Influenza Type A (PCR) Negative (Neg) Influenza Type B (PCR) Negative (Neg) RSV (RT-PCR) Negative (Neg) Administered Medications Discontinued Medications Albuterol (Albut/Ipratrop 3mg/0.5mg Neb 3 Ml Vial) 3 ml NEB NOW STA; Protocol Stop: 04/02/21 23:25 Last Admin: 04/03/21 00:10 Dose: 3 ml Documented by: [id number] Dexamethasone (Dexamethasone Sod Inj 4 Mg/Ml Vial) Confirm Administered Dose 8 mg .ROUTE .[facility] ONE Stop: 04/03/21 00:55 Last Admin: 01/18/22 01:09 Dose: 8 mg Documented by: [id number] Sodium Chloride (Nss) 500 mls @ 999 mls/hr IV .Q31M STA Stop: 04/02/21 23:39 Last Infusion: 04/03/21 00:21 Dose: 0 mls/hr Documented by: [id number] Admin: 04/02/21 23:31 Dose: 999 mls/hr Documented by: [id number] Dexamethasone 8 mg/ Syringe 2 mls @ 1 mls/min IV ONE ONE Stop: 04/03/21 00:48 Last Admin: 04/03/21 01:09 Dose: Not Given Documented by: [id number] Ioversol (Optiray 320 125ml) 119 ml IV ONCE ONE Stop: 04/03/21 02:01 Last Admin: 04/03/21 02:00 Dose: 119 ml Documented by: [id number] Morphine Sulfate (Morphine Sulfate 4 Mg/Ml 1 Ml Carp\Vial) 4 mg IV NOW STA Stop: 04/02/21 23:10 Last Admin: 04/02/21 23:31 Dose: 4 mg Documented by: [id number] Discharge Plan Visit Data Chief Complaint: Shortness of Breath/Dyspnea Stated Complaint: CHEST PAIN/SOB ED Provider: Rudy Polanco Discharge Problem: COVID-19, Pneumonia Forms Stand Alone Forms: [facility] [email or web address] Prescriptions Prescriptions: No Action mirtazapine 15 mg tablet 7.5 mg PO HS Qty: 30 RF: 5 budesonide-formoterol [Symbicort] 80-4.5 mcg/actuation HFA aerosol inhaler 2 puff inhalation QAM Qty: 10.2 RF: 3 albuterol sulfate [ProAir HFA] 90 mcg/actuation HFA aerosol inhaler 2 puff INH .Q4-6HRS PRN (Reason: Shortness Of Breath Or Wheezing) Qty: 18 RF: 6 albuterol sulfate 2.5 mg /3 mL (0.083 %) solution for nebulization 2.5 mg INH QID PRN (Reason: Shortness Of Breath Or Wheezing) Qty: 180 RF: 8 Spiriva with HandiHaler 18 mcg capsule, w/inhalation device 1 cap INH QDL RF: 0 Breo Ellipta 200-25 mcg/dose blister with device 1 inh inhalation QDL RF: 0 nicotine 7 mg/24 hr Patch 24 Hour 14 mg transdermal QAM Qty: 30 RF: 0 Referrals Referrals: Temitope Shaikh MD [Primary Care Provider] - Discharge Problem: Pneumonia Qualifiers: Pneumonia type: due to unspecified organism Laterality: left Lung location: lower lobe of lung Qualified Code(s): J18.9 - Pneumonia, unspecified organism
[2021-04-02] MEDS ORDERED: ALBUT/IPRATROP 3MG/0.5MG NEB 3 ML VIAL NEB STA (23:24)
[2021-04-02 23:48] LABS: Hematocrit (blood only) 32.1 % (37-47); Hemoglobin 10.5 g/dL (12.0-16.0); Immature Granulocytes # (auto) 0.01 K/uL (0.00-0.02); Immature Granulocytes % (auto) 0.2 %; Lymphocytes # (auto) 0.07 K/uL (1.2-3.4); Lymphocytes % (auto) 1.4 %; Mean Corpuscular Hemoglobin 31.5 pg (25-34); Mean Corpuscular Hgb Conc 32.7 g/dL (32-36); Mean Corpuscular Volume 96.4 fL (80-100); Mean Platelet Volume 9.9 fL (7.4-10.4); Neutrophils # (auto) 4.76 K/uL (1.4-6.5); Neutrophils % (auto) 94.4 %; Platelet Count 156 K/uL (130-400); RDW Coefficient of Variation 13.1 % (11.5-14.5); RDW Standard Deviation 45.9 fL (36.4-46.3); Red Blood Count 3.33 M/uL (4.2-5.4); White Blood Count 5.04 K/uL (4.8-10.8)
[2021-04-03 00:06] LABS: HCO3 VBG 28 mmol/L; PCO2 VBG 59 mmHg (38-50); PO2 VBG 25 mmHg
[2021-04-03 00:06] LABS: INR 1.1 (0.9-1.1); Partial Thromboplastin Ratio 1.5; Partial Thromboplastin Time 39.2 Seconds (21.0-31.0); Prothrombin Time 11.2 Seconds (9.0-12.0)
[2021-04-03 00:17] LABS: Troponin I < 0.03 ng/ml (0-0.04)
[2021-04-03 00:17] LABS: Oxygen Saturation VBG < 60.0 %
[2021-04-03 00:25] LABS: Alanine Aminotransferase 16 U/L (7-52); Albumin Globulin Ratio 1.4 (0.9-2); Albumin Level 3.4 gm/dl (3.4-5.0); Alkaline Phosphatase 78 U/L (34-104); Anion Gap 9 (3-11); Aspartate Aminotransferase 23 U/L (13-39); BUN Creatinine Ratio 26.8 (10-20); Bilirubin,Total 0.3 mg/dl (0.2-1.0); Blood Urea Nitrogen 11 mg/dl (6-23); Calcium 7.8 mg/dl (8.5-10.1); Carbon Dioxide 25 mmol/L (21-32); Chloride 90 mmol/L (98-107); Creatinine Clr Calc Pharmacy 140.8 ml/min; Est GFR (African American) 124.8 ml/min; Est GFR (Non-African American) 107.7 ml/min; Globulin 2.4 gm/dl (2.5-4.0); Glucose 105 mg/dl (70-99(Fasting)); Lipase 12 U/L (11-82); Potassium 3.8 mmol/L (3.5-5.1); Sodium 124 mmol/L (136-145); Total Protein 5.8 gm/dl (6.0-8.3)
[2021-04-03 00:29] LABS: Influenza A virus by PCR Negative (Neg); Influenza B virus by PCR Negative (Neg); RSV by PCR Negative (Neg)
[2021-04-03 00:44] LABS: SARS CoV2 RNA(COVID-19) InHosp POSITIVE (Negative)
[2021-04-03] MEDS ORDERED: dexAMETHasone 8 MG in SYRINGE 0 ML IV ONE (00:47)
[2021-04-03] MEDS ORDERED: DEXAMETHASONE SOD INJ 4 MG/ML VIAL ONE (00:54)
[2021-04-03] MEDS ORDERED: OPTIRAY 320 125ml IV ONE (02:00)
[2021-04-03] MEDS ORDERED: AZITHROMYCIN 500 MG in DEXTROSE 5% 250 ML IV ONE (02:28)
[2021-04-03] MEDS ORDERED: cefTRIAXone SODIUM 1,000 MG/50 ML BAG IV STA (02:32)
[2021-04-03] MEDS ORDERED: CEFEPIME 2,000 MG/20 ML VIAL IV STA (03:52)
[2021-04-03] MEDS ORDERED: REMDESIVIR 200 MG in SODIUM CHLORIDE 0.9% 210 ML IV STA (03:54)
--- NOTE | 2021-04-03 03:57 | History & Physical Report ---
Date of Service April 03, 2021 Assessment & Plan (1) Pneumonia due to COVID-19 virus: Plan: Pneumonia due to COVID-19 virus/secondary left lower lobe bacterial pneumonia/COPD exacerbation/history of right pneumonectomy/with hypoxia- Dexamethasone 6 mg IV every 12 hours Remdesivir IV per protocol Zosyn 4.5 g IV every 8 hours Azithromycin 5 mg IV daily For albuterol HFA 2 puffs 4 times daily, and every 2 hours as needed Duonebs every 2 hours as needed Guaifenesin extended release 12 mg p.o. twice daily Vitamin D 5000 international units p.o. every morning Zinc sulfate 200 mg p.o. every morning Nasal cannula oxygen, titrate to keep pulse ox 92-94% (2) Secondary bacterial pneumonia: Plan: See above (3) COPD exacerbation: Plan: See above (4) Hypoxia: Plan: See above (5) History of pneumonectomy: Plan: See above (6) SIADH (syndrome of inappropriate ADH production): Plan: Sodium [address] on sodium chloride tablets2 g p.o. twice daily Follow serial BMP Likely aggravated secondary to COVID-19 infection (7) Protein calorie malnutrition: Plan: Chronic issue secondary to primary lung problems (8) Depression: Plan: Continue mirtazapine History of Present Illness Chief Complaint: The patient presents to the emergency department with acute worsening of symptomsthat began yesterday, with productive cough, shortness of breath, dyspnea on exertion and concerns regarding pneumonia Primary Care Provider: Temitope Shaikh MD The patient is a 65-year-old female with a past medical history including COPD exacerbation, SIADH, protein calorie malnutrition, esophageal dysmotility, dysphagia, thiamine deficiency, B12 deficiency, depression, liver cirrhosis, dilation of thoracic aorta, chronic reflux esophagitis, COPD, bilateral kidney stones, history of total right pneumonectomy. She began with rapidly worsening symptoms of productive cough, shortness of breath, dyspnea exertion and generalized fatigue since yesterday. At rest patient is mildly short of breath, but with minimal movement becomes extremely short of breath. CT angiography chest PE protocol: Negative for PE. Left lower lobe consolidation. Total right pneumonectomy stable Significant laboratories: Sodium 124. COVID-19 testing positive. Influenza A and B negative. RSV negative. Allergies Allergy/AdvReac Type Severity Reaction Status Date / Time aspirin Allergy Severe SEVERE Verified 04/02/21 22:09 STOMACH CRAMPING sulfamethoxazole Allergy Severe TONGUE Verified 04/02/21 22:09 SWELLING trimethoprim Allergy Severe TONGUE Verified 04/02/21 22:09 SWELLING Penicillins Allergy Unknown Unknown Verified 04/02/21 22:09 Home Medications Medication Instructions Recorded Confirmed Type albuterol sulfate 2.5 mg INH QID PRN #180 ml 06/26/20 04/02/21 Rx mirtazapine 15 mg tablet 7.5 mg PO HS #30 tab 10/03/20 04/02/21 Rx albuterol sulfate 90 mcg/actuation 2 puff INH .Q4-6HRS PRN #18 g 10/04/20 04/02/21 Rx aerosol inhaler (ProAir HFA) nicotine 7 mg/24 hr daily 14 mg TRANSDERMAL QAM #30 ea 01/21/21 04/02/21 Rx transdermal patch fluticasone furoate 200 1 inh INHALATION QDL 03/02/21 04/02/21 History mcg-vilanterol 25 mcg/dose inhalation powder (Breo Ellipta) tiotropium bromide 18 mcg capsule 1 cap INH QDL 03/02/21 04/02/21 History with inhalation device (Spiriva with HandiHaler) budesonide-formoterol HFA 80 2 puff INHALATION QAM #10.2 g 03/26/21 04/02/21 Rx mcg-4.5 mcg/actuation aerosol inhaler (Symbicort) Past Med/Surg History Medical History (Updated 04/03/21 @ 05:46 by Kwasi Giordano MD) Abnormal CT scan, gastrointestinal tract Alcoholism B12 deficiency Bilateral kidney stones Chronic obstructive pulmonary disease Chronic reflux esophagitis Chronic respiratory failure Dilation of thoracic aorta Hypomagnesemia Influenza Leukocytosis Lung cancer Osteoporosis Palliative care encounter Pneumonia Pneumonia Protein calorie malnutrition SIADH (syndrome of inappropriate ADH production) Squamous cell carcinoma of lung Unspecified cirrhosis of liver Surgical History (Updated 04/03/21 @ 05:47 by Kwasi Giordano MD) History of pneumonectomy S/P lobectomy of lung Family History Father Aortic aneurysm Hypertension Mother COPD (chronic obstructive pulmonary disease) CHF (congestive heart failure) Osteoporosis Renal failure Grandmother Diabetes Grandfather Skin cancer Other Myocardial infarction No pertinent family history in first degree relatives Denies family history of Ovarian cancer Prostate cancer Breast cancer Colorectal cancer Social History Smoking Status: Never smoker Tobacco Type: Cigarettes Cigarettes Per Day: 20; Second Hand Exposure: Yes; Hx Alcohol Use: Yes Alcohol type: hard liquor Alcohol Intake Frequency: 2-3 x/Week Alcohol Intake Frequency Comment: once a week Hx Substance Use: No Preferred Language: Slovenian Communication Ability: Effective Visual Impairment: No Limitations Turbine Room Attendant Required: No Beliefs That Will Affect Care: None marital status: Single Current Living Situation: Other current occupational status: disabled How many Children do You have: 3 Feels Safe at Home: Yes Dental Care, Regularly: No Physical Activity Frequency: Does not Exercise Seatbelt Use: always Sunscreen Use: No Assistive Devices: Oxygen - Continuous Review of Systems Review of Systems: The patient denies chest pain, palpitations, lower extremity swelling, sore throat, fevers, chills, sweats, nausea, vomiting, diarrhea , constipation, abdominal pain, pelvic pain, blood in urine or stool, dysuria, urinary frequency or urgency, lightheadedness, dizziness, headache, memory loss, loss of consciousness, rash, abnormal bruising or bleeding, imbalance, focal weakness, numbness or tingling in arms or legs, generalized arthralgias or myalgias, back or neck pain, or night sweats. The review of systems is otherwise negative other than for that already noted above, and at least 10 systems have been reviewed. Physical Exam Physical Exam: The patient is awake, alert and oriented 3, well developed and well nourished, normocephalic and atraumatic, lying in bed and mildly short of breath at rest HEENT--PERRL, EOMI, mucous membranes and oropharynx dry. Neck--supple. No JVD. No bruits. Thyroid normal, trachea midline, no adenopathy. Heart--normal S1 and S2. No murmurs, rubs or gallops. Lungs--left lung with decreased breath sounds left base and scattered coarse breath sounds Abdomen--normal bowel sounds and soft. Nontender. Nondistended. Extremities--no cyanosis or clubbing. No edema. Dermatologic--normal skin turgor, normal color, no abnormal lymph nodes, no rash. Neurologic--cranial nerves II through XII grossly intact. Rheumatologic--normal range of motion. Psychiatric--normal affect. Results & Data Results & Data ([facility]) Vital Signs (Past 12 Hours) Vital Signs Temp Pulse Resp BP Pulse Ox 04/03/21 02:30 92 H 29 H 107/60 100 04/03/21 01:30 96 H 37 H 106/63 99 04/03/21 01:00 97 H 30 H 98/53 L 98 04/03/21 00:30 96 H 32 H 109/62 97 04/02/21 23:32 99 H 26 H 96/55 L 97 04/02/21 21:30 37.7 C H 106 H 22 117/53 L 99 Laboratory Results Laboratory Results WBC 5.04 K/uL (4.8-10.8) 04/02/21 23:25 RBC 3.33 M/uL (4.2-5.4) L 04/02/21 23:25 Hgb 10.5 g/dL (12.0-16.0) L 04/02/21 23:25 Hct 32.1 % (37-47) L 04/02/21 23:25 MCV 96.4 fL (80-100) 04/02/21 23:25 MCH 31.5 pg (25-34) 04/02/21 23:25 MCHC 32.7 g/dL (32-36) 04/02/21 23:25 RDW Std Deviation 45.9 fL (36.4-46.3) 04/02/21 23:25 RDW Coeff of Niru 13.1 % (11.5-14.5) 04/02/21 23:25 Plt Count 156 K/uL (130-400) 04/02/21 23:25 MPV 9.9 fL (7.4-10.4) 04/02/21 23:25 Immature Gran % (Auto) 0.2 % 04/02/21 23:25 Neut % (Auto) 94.4 % 04/02/21 23:25 Lymph % (Auto) 1.4 % 04/02/21 23:25 [place] % (Auto) 4.0 % 04/02/21 23:25 Eos % (Auto) 0.0 % 04/02/21 23:25 Baso % (Auto) 0.0 % 04/02/21 23:25 Neut # (Auto) 4.76 K/uL (1.4-6.5) 04/02/21 23:25 Lymph # (Auto) 0.07 K/uL (1.2-3.4) L 04/02/21 23:25 [place] # (Auto) 0.20 K/uL (0.11-0.59) 04/02/21 23:25 Eos # (Auto) 0.00 K/uL (0-0.5) 04/02/21 23:25 Baso # (Auto) 0.00 K/uL (0-0.2) 04/02/21 23:25 Immature Gran # (Auto) 0.01 K/uL (0.00-0.02) 04/02/21 23:25 PT 11.2 Seconds (9.0-12.0) 04/02/21 23:25 INR 1.1 (0.9-1.1) 04/02/21 23:25 APTT 39.2 Seconds (21.0-31.0) H 04/02/21 23:25 PTT Ratio 1.5 04/02/21 23:25 VBG pH 7.30 (7.36-7.41) L 04/02/21 23:53 VBG pCO2 59 mmHg (38-50) H 04/02/21 23:53 VBG pO2 25 mmHg 04/02/21 23:53 VBG HCO3 28 mmol/L 04/02/21 23:53 VBG O2 Saturation < 60.0 % 04/02/21 23:53 VBG Base Excess 1.0 mEq/L 04/02/21 23:53 Barometric Pressure 723.3 mm/Hg 04/02/21 23:53 Sodium 124 mmol/L (136-145) L 04/02/21 23:25 Potassium 3.8 mmol/L (3.5-5.1) 04/02/21 23:25 Chloride 90 mmol/L (98-107) L 04/02/21 23:25 Carbon Dioxide 25 mmol/L (21-32) 04/02/21 23:25 Anion Gap 9 (3-11) 04/02/21 23:25 BUN 11 mg/dl (6-23) 04/02/21 23:25 Creatinine 0.41 mg/dl (0.6-1.2) L 04/02/21 23:25 Est Cr Clr Drug Dosing 140.8 ml/min 04/02/21 23:25 Est GFR ( Amer) 124.8 ml/min 04/02/21 23:25 Est GFR (Non-Af Amer) 107.7 ml/min 04/02/21 23:25 BUN/Creatinine Ratio 26.8 (10-20) H 04/02/21 23:25 Glucose 105 mg/dl (70-99(Fasting)) H 04/02/21 23:25 Calcium 7.8 mg/dl (8.5-10.1) L 04/02/21 23:25 Total Bilirubin 0.3 mg/dl (0.2-1.0) 04/02/21 23:25 AST 23 U/L (13-39) 04/02/21 23:25 ALT 16 U/L (7-52) 04/02/21 23:25 Alkaline Phosphatase 78 U/L (34-104) 04/02/21 23:25 Troponin I < 0.03 ng/ml (0-0.04) 04/02/21 23:25 Total Protein 5.8 gm/dl (6.0-8.3) L 04/02/21 23:25 Albumin 3.4 gm/dl (3.4-5.0) 04/02/21 23:25 Globulin 2.4 gm/dl (2.5-4.0) L 04/02/21 23:25 Albumin/Globulin Ratio 1.4 (0.9-2) 04/02/21 23:25 Lipase 12 U/L (11-82) 04/02/21 23:25 Procalcitonin 0.67 ng/ml (0-0.5) H 04/02/21 23:54 SARS-CoV-2 (PCR) POSITIVE (Negative) A* 04/02/21 23:30 Influenza Type A (PCR) Negative (Neg) 04/02/21 23:30 Influenza Type B (PCR) Negative (Neg) 04/02/21 23:30 RSV (RT-PCR) Negative (Neg) 04/02/21 23:30 Diagnostic Findings [facility] Patient: PRISCILLA WIGGINS (Female) : 53 Status: ER Date: 04/03/21 02:06 Room #: History: PT. REPORTS SOB AND CHEST PAIN; COVID POSITIVE RULE OUT PE PT. REPORTS COMPLETE RT. LUNG REMOVAL, HISTORY OF CANCER OPTI [id number] CC Slices: [phone] Priors: Tech: Neisha Rehman @ [phone] Exams: CTA CHEST Contrast: IV Amt: OPTIRAY [id number] CC Accession Numbers: [id number] Referring Physician: REFERRED SELF Preliminary Findings Only See Final Report For Complete Findings CTA CHEST: No evidence of an acute pulmonary embolus. Consolidation within the base of the left lower lobe. Severe left lung centrilobular emphysema with total right pneumonectomy. Expansion of the left lung results in significant rightward deviation of the mediastinum which is unchanged. Trace left pleural effusion. Comparison made with 01/14/2021 CT pulmonary angiogram Radiologist: Delfin Payne MD Study ready at 02:08 and initial results transmitted at 02:27 *This report constitutes a preliminary interpretation only. Non-acute findings felt to be unrelated to the clinical presentation may not be discussed in this report. The study will be interpreted and a final report will be generated by the local Radiologist the following shift. To reach the [facility] radiology department call [phone]. If a discrepancy is found between the preliminary and final interpretations of this study, please notify us via our Client Portal at [email or web address], under QA Exams. You can also fax this report with a description of the discrepancy, or include the final report, to our daytime fax number [phone]. If faxing, please indicate the severity of discrepancy using one of the following categories: [ ] 1 - Agree/Informational [ ] 2 - Unlikely to Affect Management [ ] 3 - Possible Eventual Change of Management [ ] 4 - Probable Immediate Change of Management For all other patient related information, please fax us at [phone]. [id number] Code Status & VTE Plan Code Status Full code VTE Prophylaxis Plan VTE Prophylaxis will be ordered: Yes PG Care Time/CCT Total # of Minutes Spent Total Time Spent with Patient: Total time spent is greater than 50% in coordination of care (as documented) at patient's floor/unit and/or counseling patient: Coding Level of Care Code 74474 Initial Inpt Care Lvl 3 Diagnoses Hypoxia R09.02 Pneumonia due to COVID-19 virus U07.1; J12.82 Secondary bacterial pneumonia J15.9 COPD exacerbation J44.1 SIADH (syndrome of inappropriate ADH production) E22.2 Protein calorie malnutrition E46 Depression F32.9 History of pneumonectomy Z98.890; Z90.2
[2021-04-03] MEDS ORDERED: ALBUT/IPRATROP 3MG/0.5MG NEB 3 ML VIAL NEB PRN (07:01)
[2021-04-03] MEDS ORDERED: ONDANSETRON INJ 2 MG/ML 2 ML VIAL IV PRN (07:01)
[2021-04-03] MEDS ORDERED: ENOXAPARIN INJ 60 MG/0.6 ML SYR SQ SCH (08:00)
--- NOTE | 2021-04-03 08:06 | Hospitalist Progress Note ---
Date of Service April 03, 2021 Assessment & Plan (1) Pneumonia due to COVID-19 virus: Plan: Amy is a 65-year-old female with a past medical history of COPD, SIADH, malnutrition, esophageal dysmotility with dysphagia, thiamine and B12 deficiency, depression, cirrhosis, bilateral kidney stones, and history of right pneumonectomy who presented with 1 day of cough, shortness of breath, and dyspnea and he was admitted for left lower lobe pneumonia COVID-positive. Acute hypoxic respiratory failure 2/2 Covid pneumonia Covid positive: 04/03/2021 First day of symptoms: 04/02/2021 Vaccination status: COVID vaccinated Baseline kidney function: Normal Admitting kidney function: Creatinine 0.41 AST/ALT: Normal on admission CTA: No evidence of acute PE. Consolidation in the base of the left lower lobe, severe left lung central lobar emphysema. Stable right pneumonectomy. Trace left pleural effusion. - Hx of R pneumonectomy, 2/2 large cell lung cancer due to smoking. CRP: pending Continue dexamethasone x10-day course Remdesivir: Started on admission Baricitinib: Not indicated at this time - Hyponatremia, ? SIADH versus nutritional depletion, Sodium chloride 2 g p.o. twice daily, BMP daily (2) Secondary bacterial pneumonia: Plan: Continue Zosyn Otherwise treatment as above (3) COPD exacerbation: Plan: Acute COPD Continue azithromycin 500 mg IV daily x3 days Continue albuterol nebulizers as needed/DuoNebs every morning, continue umeclidinium daily (4) Hypoxia: Plan: See above (5) History of pneumonectomy: Plan: See above (6) SIADH (syndrome of inappropriate ADH production): Plan: Sodium [address] on sodium chloride tablets2 g p.o. twice daily Follow serial BMP Likely aggravated secondary to COVID-19 infection (7) Protein calorie malnutrition: Plan: Chronic issue secondary to primary lung problems (8) Depression: Plan: Continue mirtazapine Plan: CODE STATUS: Previously full code, switched to DNR/DNI. See full code discussion 04/03/2021 Diet: Reduced liquid due to some stomach upset DVT prophylaxis: Lovenox Disposition: Medical Telemetry Admission and Anticipated Discharge Date Admission Date: April 03, 2021 Subjective Bridge note, patient seen after midnight by admitting provider. Currently seen at the bedside, she reports she is starting to feel better. She has had some diarrhea worsened with her meal this morning, notes she has not eaten much since being ill and thinks starting food has been hard on her stomach. She has also had some liquid diarrhea in the last 3 days. No antibiotic use in the previous 60 days. Uses breo new in the last month, symbicort, and spiriva +sputum production. No blood No fevers, sweats this morning. Some chills. Sweats at home [employer]. +diarrhea, loose worsen since eating. No abx treatment recently/last 60 days 4L home oxygen baseline Surrogate DM would be guanaco Valerio. Discussed recommended course of treatment extensively with patient, no questions and concerns. History of pneumonectomy with squamous cell carcinoma of the lung in the setting of former tobacco use, has residual emphysema in her remaining lung. Did discuss CODE STATUS extensively with patient. She reports that while she was initially full code and thinks this is what she would want for her family, she would not want to the trauma of chest compressions or a breathing tube if she were to undergo cardiac arrest, and also would not want a breathing tube if she were to fail other interventions for worsening breathing status as she feels this would worsen her quality of life with a low chance of being successful for her. Discussed that this was reasonable, and she confirms that she would want all treatment up through high flow oxygen treatment for COVID and worsening respiratory status. Expresses appreciation of decision, and is aware that she may revisit and change his CODE STATUS at any point. No additional questions at time of bedside assessment. Review of Systems Review of Systems: All systems reviewed & are unremarkable except as noted in Subjective Physical Exam Physical Exam: General: A&Ox3. NAD. Cooperative. chronically ill but nontoxic. HEENT: Atraumatic, normocephalic. Visual acuity and hearing grossly intact, slightly hard of hearing. Pulm: Left lung with basilar crackles, no wheezes at time of exam with moderate to good air movement. Radiated lung sounds in right field, status post right pneumonectomy. Cardiac: Regular, tachycardic in the 90s, -mrg. Radial pulses intact and symmetrical. Abdominal: Nontender, nondistended, soft. BS present. Results & Data Results & Data ([facility]) Vital Signs (Past 12 Hours) Vital Signs Temp Pulse Pulse Resp BP BP Pulse Ox 04/03/21 07:00 36.7 C 83 24 90/62 L 100 04/03/21 05:00 87 21 100/58 L 99 04/03/21 03:30 86 23 101/60 100 04/03/21 02:30 92 H 29 H 107/60 100 04/03/21 01:30 96 H 37 H 106/63 99 04/03/21 01:00 97 H 30 H 98/53 L 98 04/03/21 00:30 96 H 32 H 109/62 97 04/02/21 23:32 99 H 26 H 96/55 L 97 04/02/21 21:30 37.7 C H 106 H 22 117/53 L 99 PG Care Time/CCT Total # of Minutes Spent Total Time Spent with Patient: Total time spent is greater than 50% in coordination of care (as documented) at patient's floor/unit and/or counseling patient: Coding Level of Care Code None Diagnoses Pneumonia due to COVID-19 virus U07.1; J12.82 Secondary bacterial pneumonia J15.9 COPD exacerbation J44.1 Hypoxia R09.02 History of pneumonectomy Z98.890; Z90.2 SIADH (syndrome of inappropriate ADH production) E22.2 Protein calorie malnutrition E46 Depression F32.9
[2021-04-03] MEDS: NICOTINE 14 MG/24 HR PATCH TD SCH (08:07)
[2021-04-03] MEDS: SODIUM CHLORIDE 1 GM TABLET PO SCH ×2 (08:10→21:49)
--- NOTE | 2021-04-03 08:36 | CT Scan Report ---
CT angio chest PE protocol CLINICAL HISTORY: Chest Pain, eval for PE TECHNIQUE: Multidetector row helical CT of the chest was performed. Coronal and sagittal reformations were obtained. Coronal and sagittal MIPS were obtained from the axial data set and were submitted fo r review. Automated dose lowering techniques and/or adjustment according to patient size were utiliz ed for this exam. Comparison: Comparison is made to CTA chest 01/14/2021 FINDINGS: Lungs and pleura: Patient is status post total right pneumonectomy with some fluid remaining in the c avity and pleural thickening and calcifications noted. The left lung is markedly emphysematous. Conso lidation is seen in the base of the left lower lobe. Interval stability of 5 mm nodule in the left lo wer lobe. Heart and pericardium: Heart size is normal. No pericardial effusion. Vessels: No evidence of pulmonary embolism. The aortic arch measures up to 40 mm in the ascending aor ta. Mediastinum and jim: Unremarkable. Chest wall and lower neck: Unremarkable. Abdomen: Nonobstructive nephrolithiasis is seen on the left. There is mild pelviectasis on the right. Bones: Postsurgical changes are seen in the right ribs. IMPRESSION: 1. No evidence of pulmonary embolism. 2. Consolidation in the left lung base may represent atelectasis and/or pneumonia. 3. Stable post pneumonectomy changes. 4. Ectasia of the ascending aorta. 5. Interval stability of 5 mm left lower lobe nodule. ACT 112: Negative or not required by law. Electronically signed by: Jamie Slaughter M.D. 04/03/2021 8:35 AM
[2021-04-03] MEDS ORDERED: BUDESONIDE/FORMOTEROL FUMARATE 80/4.5 60 PUFFS/INHALER INH SCH (09:00)
[2021-04-03] MEDS: UMECLIDINIUM BROMIDE 62.5MCG/BLISTER 7 PUFFS/INHALER INH SCH (11:54)
[2021-04-03] MEDS: THIAMINE HCL 100 MG TAB PO SCH (11:56)
[2021-04-03] MEDS: FLUTICASONE/VILANTEROL 200/25MCG 14 PUFFS/INHALER INH SCH (11:56)
[2021-04-03] MEDS: ALBUTEROL HFA 8 GM INHALER INH SCH ×3 (11:59→21:48)
[2021-04-03] MEDS: LACTOBACILLUS ACIDOPHILUS 1 GM PACK PO SCH ×2 (12:00→20:41)
[2021-04-03] MEDS: dexAMETHasone 6 MG in SYRINGE 0 ML IV SCH (12:01)
[2021-04-03] MEDS: ACETAMINOPHEN 325 MG TAB PO PRN ×2 (13:07→21:52)
[2021-04-03] MEDS: CEFEPIME 2,000 MG in SYRINGE 0 ML IV SCH ×2 (14:23→21:52)
--- NOTE | 2021-04-03 21:02 | Electrocardiogram Report ---
Test Reason : Blood Pressure : / mmHG Vent. Rate : 104 BPM Atrial Rate : 104 BPM P-R Int : 118 ms QRS Dur : 086 ms QT Int : 340 ms P-R-T Axes : 060 053 055 degrees QTc Int : 447 ms Poor data quality, interpretation may be adversely affected Sinus tachycardia with Premature atrial complexes Nonspecific T wave abnormality Abnormal ECG When compared with ECG of 04-MAR-2021 13:49, Premature atrial complexes are now Present Confirmed by All Parra ([id number]) on 04/03/2021 9:02:23 PM Referred By: REFERRED SELF Confirmed By:All Parra
[2021-04-03] MEDS: ENOXAPARIN INJ 40 MG/0.4 ML SYR SQ SCH (21:48)
[2021-04-03] MEDS: MIRTAZAPINE TAB 15 MG TAB PO SCH (21:50)
[2021-04-04] MEDS: DICLOFENAC SOD 1% GEL 100 GM TUBE EXT PRN (00:27)
[2021-04-04] MEDS: dexAMETHasone 6 MG in SYRINGE 0 ML IV SCH ×2 (00:31→12:30)
[2021-04-04] MEDS: ACETAMINOPHEN 325 MG TAB PO PRN ×2 (05:44→17:35)
[2021-04-04] MEDS: AZITHROMYCIN 500 MG in DEXTROSE 5% 250 ML IV SCH (05:45)
[2021-04-04] MEDS: CEFEPIME 2,000 MG in SYRINGE 0 ML IV SCH ×3 (05:45→21:05)
[2021-04-04 06:12] LABS: Hematocrit (blood only) 33.3 % (37-47); Hemoglobin 10.6 g/dL (12.0-16.0); Mean Corpuscular Hemoglobin 31.4 pg (25-34); Mean Corpuscular Hgb Conc 31.8 g/dL (32-36); Mean Corpuscular Volume 98.5 fL (80-100); Mean Platelet Volume 9.7 fL (7.4-10.4); Monocytes # (auto) 0.45 K/uL (0.11-0.59); Monocytes % (auto) 6.8 %; Neutrophils # (auto) 5.92 K/uL (1.4-6.5); Neutrophils % (auto) 90.2 %; Platelet Count 175 K/uL (130-400); RDW Standard Deviation 47.1 fL (36.4-46.3); Red Blood Count 3.38 M/uL (4.2-5.4); White Blood Count 6.57 K/uL (4.8-10.8)
[2021-04-04 06:44] LABS: Albumin Globulin Ratio 1.3 (0.9-2); Albumin Level 3.1 gm/dl (3.4-5.0); BUN Creatinine Ratio 45.5 (10-20); Bilirubin,Total 0.2 mg/dl (0.2-1.0); Calcium 7.9 mg/dl (8.5-10.1); Creatinine Clr Calc Pharmacy 96.5 ml/min; Est GFR (Non-African American) 115.6 ml/min; Globulin 2.3 gm/dl (2.5-4.0); Potassium 4.1 mmol/L (3.5-5.1); Total Protein 5.4 gm/dl (6.0-8.3)
[2021-04-04] MEDS: ALBUTEROL HFA 8 GM INHALER INH SCH ×4 (08:15→19:40)
[2021-04-04] MEDS: LACTOBACILLUS ACIDOPHILUS 1 GM PACK PO SCH ×3 (08:45→16:44)
[2021-04-04] MEDS: ENOXAPARIN INJ 40 MG/0.4 ML SYR SQ SCH ×2 (08:47→20:08)
[2021-04-04] MEDS: THIAMINE HCL 100 MG TAB PO SCH (08:55)
[2021-04-04] MEDS: SODIUM CHLORIDE 1 GM TABLET PO SCH ×2 (08:56→20:08)
[2021-04-04] MEDS: NICOTINE 14 MG/24 HR PATCH TD SCH (09:02)
[2021-04-04] MEDS: UMECLIDINIUM BROMIDE 62.5MCG/BLISTER 7 PUFFS/INHALER INH SCH (12:21)
[2021-04-04] MEDS: FLUTICASONE/VILANTEROL 200/25MCG 14 PUFFS/INHALER INH SCH (12:21)
[2021-04-04] MEDS: REMDESIVIR 100 MG in SODIUM CHLORIDE 0.9% 230 ML IV SCH (12:30)
[2021-04-04] MEDS ORDERED: SODIUM CHLORIDE 0.9% 10ML FLUSH IV SCH (13:00)
--- NOTE | 2021-04-04 13:06 | Hospitalist Progress Note ---
Date of Service April 04, 2021 Assessment & Plan (1) Pneumonia due to COVID-19 virus: Plan: Amy is a 65-year-old female with a past medical history of COPD, SIADH, malnutrition, esophageal dysmotility with dysphagia, thiamine and B12 deficiency, depression, cirrhosis, bilateral kidney stones, and history of right pneumonectomy who presented with 1 day of cough, shortness of breath, and dyspnea and he was admitted for left lower lobe pneumonia COVID-positive. Acute hypoxic respiratory failure 2/2 Covid pneumonia Covid positive: 04/03/2021 First day of symptoms: 04/02/2021 Vaccination status: COVID vaccinated Baseline kidney function: Normal Admitting kidney function: Creatinine 0.41 AST/ALT: Normal on admission CTA: No evidence of acute PE. Consolidation in the base of the left lower lobe, severe left lung central lobar emphysema. Stable right pneumonectomy. Trace left pleural effusion. - Hx of R pneumonectomy, 2/2 large cell lung cancer due to smoking. CRP: pending Continue dexamethasone x10-day course. Patient initially placed on twice daily dose on admission due to elevated risk, will continue daily at this time but if severe inflammatory response consider increased ARDS dosing. Remdesivir: Started on admission. Continue for 5-day course, transaminases remain normal Baricitinib: Not indicated at this time - Hyponatremia improving, 132 today. Sodium tabs decreased, continue to follow BMP daily Patient appears clinically stable today, however she is high risk of severe disease 2/2 pneumonectomy and COVID-pneumonia with concern for superimposed bacterial pneumonia. Low threshold to transfer to PCU status if oxygen requirements begin to increase or clinical status worsens. (2) Secondary bacterial pneumonia: Plan: Patient converted to cefepime. History of pseudomonal pneumonia Repeat sputum remains pending Blood cultures no growth to date (3) COPD exacerbation: Plan: Acute COPD with exacerbation, in setting of pneumonia Continue azithromycin 500 mg IV daily x3 days Continue albuterol nebulizers as needed/DuoNebs every morning, continue umeclidinium daily (4) Hypoxia: Plan: See above (5) History of pneumonectomy: Plan: See above (6) SIADH (syndrome of inappropriate ADH production): Plan: Sodium 124 upon admission Sodium improving, chloride tablets decreased as above Follow serial BMP Likely aggravated secondary to COVID-19 infection (7) Protein calorie malnutrition: Plan: Chronic issue secondary to primary lung problems (8) Depression: Plan: Continue mirtazapine Plan: CODE STATUS:DNR/DNI. code discussion 04/03/2021 Diet: Reduced liquid due to some stomach upset DVT prophylaxis: Lovenox Disposition: Medical Telemetry Admission and Anticipated Discharge Date Admission Date: April 03, 2021 Subjective Seen at bedside this morning. No new symptoms, feels anxious and continues to have a cough productive for green sputum similar to yesterday. Feels somewhat short of breath with ambulation, remains on 3-4 L of nasal cannula. Denies upper chest pain, chest pressure. Has some lower rib pain with coughing, otherwise denies. Reports she is nervous about her symptoms, but no questions at time of bedside assessment. Review of Systems Review of Systems: All systems reviewed & are unremarkable except as noted in Subjective Physical Exam Physical Exam: General: A&Ox3. NAD. Cooperative. chronically ill but nontoxic. HEENT: Atraumatic, normocephalic. Visual acuity and hearing grossly intact, slightly hard of hearing. Pulm: Left lung with basilar crackles, no wheezes at time of exam with moderate to good air movement. Radiated lung sounds in right field, status post right pneumonectomy. Cardiac: Regular, tachycardia resolved today, -mrg. Radial pulses intact and symmetrical. Abdominal: Nontender, nondistended, soft. BS present. Results & Data Results & Data ([facility]) Vital Signs (Past 12 Hours) Vital Signs Temp Pulse Pulse Resp BP Pulse Ox 04/04/21 10:33 87 14 99 04/04/21 08:15 79 16 99 04/04/21 07:52 82 04/04/21 07:38 36.6 C 81 16 106/60 100 04/04/21 03:42 36.5 C 74 18 107/60 100 PG Care Time/CCT Total # of Minutes Spent Total Time Spent with Patient: Total time spent is greater than 50% in coordination of care (as documented) at patient's floor/unit and/or counseling patient: Coding Level of Care Code 05296 Subseq Hosp Care Lvl 3 Diagnoses Pneumonia due to COVID-19 virus U07.1; J12.82 Secondary bacterial pneumonia J15.9 COPD exacerbation J44.1 Hypoxia R09.02 History of pneumonectomy Z98.890; Z90.2 SIADH (syndrome of inappropriate ADH production) E22.2 Protein calorie malnutrition E46 Depression F32.9
[2021-04-04] MEDS: MIRTAZAPINE TAB 15 MG TAB PO SCH (20:08)
[2021-04-05] MEDS: ACETAMINOPHEN 325 MG TAB PO PRN ×4 (00:05→21:49)
[2021-04-05] MEDS: CEFEPIME 2,000 MG in SYRINGE 0 ML IV SCH ×3 (05:32→21:43)
[2021-04-05] MEDS: AZITHROMYCIN 500 MG in DEXTROSE 5% 250 ML IV SCH (05:47)
[2021-04-05] MEDS: BENZONATATE 100 MG CAPSULE PO PRN ×2 (05:52→23:59)
[2021-04-05 07:16] LABS: Hematocrit (blood only) 32.3 % (37-47); Hemoglobin 10.2 g/dL (12.0-16.0); Immature Granulocytes # (auto) 0.01 K/uL (0.00-0.02); Immature Granulocytes % (auto) 0.1 %; Lymphocytes # (auto) 0.23 K/uL (1.2-3.4); Lymphocytes % (auto) 3.3 %; Mean Corpuscular Hemoglobin 31.2 pg (25-34); Mean Corpuscular Hgb Conc 31.6 g/dL (32-36); Mean Corpuscular Volume 98.8 fL (80-100); Monocytes # (auto) 0.64 K/uL (0.11-0.59); Monocytes % (auto) 9.3 %; Neutrophils # (auto) 6.02 K/uL (1.4-6.5); Neutrophils % (auto) 87.3 %; Platelet Count 190 K/uL (130-400); RDW Coefficient of Variation 13.2 % (11.5-14.5); RDW Standard Deviation 47.7 fL (36.4-46.3); Red Blood Count 3.27 M/uL (4.2-5.4)
[2021-04-05 07:36] LABS: Albumin Globulin Ratio 1.3 (0.9-2); BUN Creatinine Ratio 46.2 (10-20); Bilirubin,Total 0.2 mg/dl (0.2-1.0); C Reactive Protein 1.41 mg/dl (0-0.5); Calcium 7.9 mg/dl (8.5-10.1); Creatinine Clr Calc Pharmacy 91.4 ml/min; Est GFR (African American) 126.8 ml/min; Est GFR (Non-African American) 109.4 ml/min; Globulin 2.3 gm/dl (2.5-4.0); Potassium 3.9 mmol/L (3.5-5.1); Total Protein 5.3 gm/dl (6.0-8.3)
[2021-04-05] MEDS: ALBUTEROL HFA 8 GM INHALER INH SCH ×4 (07:47→19:38)
[2021-04-05] MEDS: LACTOBACILLUS ACIDOPHILUS 1 GM PACK PO SCH ×3 (07:51→17:22)
[2021-04-05] MEDS: SODIUM CHLORIDE 1 GM TABLET PO SCH ×2 (07:51→20:02)
[2021-04-05] MEDS: THIAMINE HCL 100 MG TAB PO SCH (07:51)
[2021-04-05] MEDS: NICOTINE 14 MG/24 HR PATCH TD SCH (07:51)
[2021-04-05] MEDS: ENOXAPARIN INJ 40 MG/0.4 ML SYR SQ SCH ×2 (07:52→20:01)
[2021-04-05] MEDS: FLUTICASONE/VILANTEROL 200/25MCG 14 PUFFS/INHALER INH SCH (10:55)
[2021-04-05] MEDS: UMECLIDINIUM BROMIDE 62.5MCG/BLISTER 7 PUFFS/INHALER INH SCH (10:56)
[2021-04-05] MEDS: dexAMETHasone 6 MG in SYRINGE 0 ML IV SCH (12:07)
[2021-04-05] MEDS: REMDESIVIR 100 MG in SODIUM CHLORIDE 0.9% 230 ML IV SCH (12:07)
--- NOTE | 2021-04-05 16:28 | Hospitalist Progress Note ---
Date of Service April 05, 2021 Assessment & Plan (1) Pneumonia due to COVID-19 virus: Plan: Amy is a 65-year-old female with a past medical history of COPD, SIADH, malnutrition, esophageal dysmotility with dysphagia, thiamine and B12 deficiency, depression, cirrhosis, bilateral kidney stones, and history of right pneumonectomy who presented with 1 day of cough, shortness of breath, and dyspnea and he was admitted for left lower lobe pneumonia COVID-positive. Acute hypoxic respiratory failure 2/2 Covid pneumonia Covid positive: 04/03/2021 First day of symptoms: 04/02/2021 Vaccination status: COVID vaccinated Baseline kidney function: Normal Admitting kidney function: Creatinine 0.41 AST/ALT: Normal on admission CTA: No evidence of acute PE. Consolidation in the base of the left lower lobe, severe left lung central lobar emphysema. Stable right pneumonectomy. Trace left pleural effusion. - Hx of R pneumonectomy, 2/2 large cell lung cancer due to smoking. CRP: 1.41 Continue dexamethasone x10-day course. Patient initially placed on twice daily dose on admission due to elevated risk, will continue daily at this time but if severe inflammatory response consider increased ARDS dosing. Remdesivir: Started on admission. Continue for 5-day course, transaminases remain normal. Given patient's very high risk of comorbidity would complete full course of remdesivir. Baricitinib: Not indicated at this time - Hyponatremia improving, 133 today. Sodium tabs continued, continue to follow BMP daily Patient appears clinically stable today, however she is high risk of severe disease 2/2 pneumonectomy and COVID-pneumonia with concern for superimposed bacterial pneumonia. Low threshold to transfer to PCU status if oxygen requirements begin to increase or clinical status worsens. Titrate oxygen to SPO2 94%, do not decrease nasal cannula below 2 L home baseline (2) Secondary bacterial pneumonia: Plan: Patient converted to cefepime. History of pseudomonal pneumonia Repeat sputum remains pending Blood cultures no growth to date (3) COPD exacerbation: Plan: Acute COPD with exacerbation, in setting of pneumonia Continue azithromycin 500 mg IV daily x3 days Continue albuterol nebulizers as needed/DuoNebs every morning, continue umeclidinium daily (4) Hypoxia: Plan: See above (5) History of pneumonectomy: Plan: See above (6) SIADH (syndrome of inappropriate ADH production): Plan: Sodium 124 upon admission Sodium improving, salt tabs as noted Follow serial BMP Likely aggravated secondary to COVID-19 infection (7) Protein calorie malnutrition: Plan: Chronic issue secondary to primary lung problems (8) Depression: Plan: Continue mirtazapine Plan: CODE STATUS:DNR/DNI. code discussion 04/03/2021 Diet: liquid due to some stomach upset may advance as tolerated DVT prophylaxis: Lovenox Disposition: Medical Telemetry, PCU if worsening O2 reqs/clinical status Admission and Anticipated Discharge Date Admission Date: April 03, 2021 Subjective Patient is seen at the bedside this morning. She is alert and in no acute distress. Breathing 2 L of nasal cannula oxygen. Reports that this morning she was weaned down to room air and did as was satting above 94% on 2 L, but did desat into the 70s with this. Patient rapidly recovered with nasal cannula 2 L, but was nervous about this. Otherwise feels well. Some cough today. No fevers, chills, sweats, nausea, vomiting, difficulty breathing. Does endorse some loose bowel movements yesterday, no bowel movements yet today. Discussed case with daughter by phone and updated, appreciative of update. In future will titrate oxygen to a goal of 94%, but will not decrease below home baseline of 2 L. Review of Systems Review of Systems: All systems reviewed & are unremarkable except as noted in Subjective Physical Exam Physical Exam: General: A&Ox3. NAD. Cooperative. chronically ill but nontoxic. HEENT: Atraumatic, normocephalic. Visual acuity and hearing grossly intact, slightly hard of hearing. Pulm: Left lower lung coarse, crackles with slight rales in the base no wheezes at time of exam with moderate to good air movement. Radiated lung sounds in right field, status post right pneumonectomy. Cardiac: Regular, tachycardia resolved today, -mrg. Radial pulses intact and symmetrical. Abdominal: Nontender, nondistended, soft. BS present. Results & Data Results & Data ([facility]) Vital Signs (Past 12 Hours) Vital Signs Temp Pulse Resp BP Pulse Ox 04/05/21 15:09 36.7 C 84 20 125/67 96 04/05/21 14:32 72 20 96 04/05/21 11:26 36.7 C 78 20 107/57 L 97 04/05/21 10:40 72 18 96 04/05/21 08:17 36.8 C 87 20 112/68 99 04/05/21 07:49 79 18 98 PG Care Time/CCT Total # of Minutes Spent Total Time Spent with Patient: Total time spent is greater than 50% in coordination of care (as documented) at patient's floor/unit and/or counseling patient: Coding Level of Care Code 02535 Subseq Hosp Care Lvl 3 Diagnoses Pneumonia due to COVID-19 virus U07.1; J12.82 Secondary bacterial pneumonia J15.9 COPD exacerbation J44.1 Hypoxia R09.02 History of pneumonectomy Z98.890; Z90.2 SIADH (syndrome of inappropriate ADH production) E22.2 Protein calorie malnutrition E46 Depression F32.9
[2021-04-05] MEDS: MIRTAZAPINE TAB 15 MG TAB PO SCH (20:02)
[2021-04-05] MEDS: COUGH DROP (SUGAR FREE) LOZ 24 LOZ/1 BOX BUCCAL PRN (21:49)
[2021-04-06] MEDS: AZITHROMYCIN 500 MG in DEXTROSE 5% 250 ML IV SCH (05:45)
[2021-04-06] MEDS: CEFEPIME 2,000 MG in SYRINGE 0 ML IV SCH ×3 (05:48→20:26)
[2021-04-06 06:31] LABS: Hematocrit (blood only) 34.4 % (37-47); Hemoglobin 10.9 g/dL (12.0-16.0); Immature Granulocytes # (auto) 0.01 K/uL (0.00-0.02); Immature Granulocytes % (auto) 0.2 %; Lymphocytes # (auto) 0.33 K/uL (1.2-3.4); Lymphocytes % (auto) 6.7 %; Mean Corpuscular Hemoglobin 31.3 pg (25-34); Mean Corpuscular Hgb Conc 31.7 g/dL (32-36); Mean Corpuscular Volume 98.9 fL (80-100); Mean Platelet Volume 9.6 fL (7.4-10.4); Monocytes # (auto) 0.52 K/uL (0.11-0.59); Monocytes % (auto) 10.5 %; Neutrophils # (auto) 4.08 K/uL (1.4-6.5); Neutrophils % (auto) 82.6 %; Platelet Count 201 K/uL (130-400); RDW Coefficient of Variation 13.2 % (11.5-14.5); RDW Standard Deviation 47.5 fL (36.4-46.3); Red Blood Count 3.48 M/uL (4.2-5.4); White Blood Count 4.94 K/uL (4.8-10.8)
[2021-04-06 06:58] LABS: Albumin Globulin Ratio 1.4 (0.9-2); Albumin Level 3.1 gm/dl (3.4-5.0); BUN Creatinine Ratio 31.9 (10-20); Bilirubin,Total 0.2 mg/dl (0.2-1.0); C Reactive Protein 0.72 mg/dl (0-0.5); Creatinine Clr Calc Pharmacy 69.3 ml/min; Est GFR (African American) 119.3 ml/min; Est GFR (Non-African American) 102.9 ml/min; Globulin 2.2 gm/dl (2.5-4.0); Potassium 3.9 mmol/L (3.5-5.1); Total Protein 5.3 gm/dl (6.0-8.3)
[2021-04-06] MEDS: ALBUTEROL HFA 8 GM INHALER INH SCH ×5 (07:37→19:50)
[2021-04-06] MEDS: LACTOBACILLUS ACIDOPHILUS 1 GM PACK PO SCH ×3 (08:23→16:07)
[2021-04-06] MEDS: SODIUM CHLORIDE 1 GM TABLET PO SCH ×2 (08:24→20:27)
[2021-04-06] MEDS: THIAMINE HCL 100 MG TAB PO SCH (08:24)
[2021-04-06] MEDS: ENOXAPARIN INJ 40 MG/0.4 ML SYR SQ SCH ×2 (08:27→20:33)
[2021-04-06] MEDS: NICOTINE 14 MG/24 HR PATCH TD SCH (08:55)
[2021-04-06] MEDS: ACETAMINOPHEN 325 MG TAB PO PRN ×2 (10:04→16:06)
[2021-04-06] MEDS: BENZONATATE 100 MG CAPSULE PO PRN ×2 (10:05→21:42)
[2021-04-06] MEDS: dexAMETHasone 6 MG in SYRINGE 0 ML IV SCH (11:06)
[2021-04-06] MEDS: FLUTICASONE/VILANTEROL 200/25MCG 14 PUFFS/INHALER INH SCH (11:06)
[2021-04-06] MEDS: UMECLIDINIUM BROMIDE 62.5MCG/BLISTER 7 PUFFS/INHALER INH SCH (11:06)
[2021-04-06] MEDS: REMDESIVIR 100 MG in SODIUM CHLORIDE 0.9% 230 ML IV SCH (11:06)
--- NOTE | 2021-04-06 16:36 | Hospitalist Progress Note ---
Date of Service April 06, 2021 Assessment & Plan (1) Pneumonia due to COVID-19 virus: Plan: Amy is a 65-year-old female with a past medical history of COPD, SIADH, malnutrition, esophageal dysmotility with dysphagia, thiamine and B12 deficiency, depression, cirrhosis, bilateral kidney stones, and history of right pneumonectomy who presented with 1 day of cough, shortness of breath, and dyspnea and he was admitted for left lower lobe pneumonia COVID-positive. Acute hypoxic respiratory failure 2/2 Covid pneumonia Covid positive: 04/03/2021 First day of symptoms: 04/02/2021 Vaccination status: COVID vaccinated Baseline kidney function: Normal Admitting kidney function: Creatinine 0.41 AST/ALT: Normal on admission CTA: No evidence of acute PE. Consolidation in the base of the left lower lobe, severe left lung central lobar emphysema. Stable right pneumonectomy. Trace left pleural effusion. - Hx of R pneumonectomy, 2/2 large cell lung cancer due to smoking. CRP: 1.41 Continue dexamethasone x10-day course. Patient initially placed on twice daily dose on admission due to elevated risk, will continue daily at this time but if severe inflammatory response consider increased ARDS dosing. Remdesivir: Started on admission. Continue for 5-day course, transaminases remain normal. Given patient's very high risk of comorbidity would complete full course of remdesivir. Baricitinib: Not indicated at this time - Hyponatremia improving, 133 today. Sodium tabs continued, continue to follow BMP daily Patient appears clinically stable today, however she is high risk of severe disease 2/2 pneumonectomy and COVID-pneumonia with concern for superimposed bacterial pneumonia. Low threshold to transfer to PCU status if oxygen requirements begin to increase or clinical status worsens. Titrate oxygen to SPO2 94%, do not decrease nasal cannula below 2 L home baseline CRP is downtrending 04/06 (2) Secondary bacterial pneumonia: Plan: Patient converted to cefepime. History of pseudomonal pneumonia Repeat sputum remains pending, positive for gram-negative bacilli pending speciation. Continue cefepime Blood cultures no growth to date (3) COPD exacerbation: Plan: Acute COPD with exacerbation, in setting of pneumonia Continue azithromycin 500 mg IV daily x3 days Continue albuterol nebulizers as needed/DuoNebs every morning, continue umeclidinium daily (4) Hypoxia: Plan: See above (5) History of pneumonectomy: Plan: See above (6) SIADH (syndrome of inappropriate ADH production): Plan: Sodium 124 upon admission Sodium improving, salt tabs as noted Follow serial BMP Likely aggravated secondary to COVID-19 infection (7) Protein calorie malnutrition: Plan: Chronic issue secondary to primary lung problems (8) Depression: Plan: Continue mirtazapine Plan: CODE STATUS:DNR/DNI. code discussion 04/03/2021 Diet: liquid due to some stomach upset may advance as tolerated. Pepcid BID. DVT prophylaxis: Lovenox Disposition: Medical Telemetry, PCU if worsening O2 reqs/clinical status Admission and Anticipated Discharge Date Admission Date: April 03, 2021 Subjective Seen at bedside this morning, patient tired but doing well. Agreeable to work with PT today. Is very nervous regarding her health condition, but feels she has done okay yesterday into today. Is tolerating remdesivir well. No shortness of breath in bed, some shortness of breath with ambulation. Denies fever, chills, sweats today Review of Systems Review of Systems: All systems reviewed & are unremarkable except as noted in Subjective Physical Exam Physical Exam: General: A&Ox3. NAD. Cooperative. chronically ill but nontoxic. HEENT: Atraumatic, normocephalic. Visual acuity and hearing grossly intact, slightly hard of hearing. Pulm: Left lower lung coarse, with persistent basilar crackles no wheezes at time of exam with moderate to good air movement. Radiated lung sounds in right field, status post right pneumonectomy. Cardiac: Regular, tachycardia resolved today, -mrg. Radial pulses intact and symmetrical. Abdominal: Nontender, nondistended, soft. BS present. Results & Data Results & Data ([facility]) Vital Signs (Past 12 Hours) Vital Signs Temp Pulse Pulse Resp BP Pulse Ox Pulse Ox 04/06/21 15:02 37.0 C 79 18 108/74 95 04/06/21 14:59 93 H 18 97 04/06/21 11:07 37.0 C 79 16 108/74 95 04/06/21 10:31 78 04/06/21 10:12 90 18 99 04/06/21 09:01 99 H 04/06/21 08:01 36.6 C 87 20 124/69 95 04/06/21 07:38 92 H 18 98 04/06/21 07:00 100 PG Care Time/CCT Total # of Minutes Spent Total Time Spent with Patient: Total time spent is greater than 50% in coordination of care (as documented) at patient's floor/unit and/or counseling patient: Coding Level of Care Code 39792 Subseq Hosp Care Lvl 2 Diagnoses Pneumonia due to COVID-19 virus U07.1; J12.82 Secondary bacterial pneumonia J15.9 COPD exacerbation J44.1 Hypoxia R09.02 History of pneumonectomy Z98.890; Z90.2 SIADH (syndrome of inappropriate ADH production) E22.2 Protein calorie malnutrition E46 Depression F32.9
[2021-04-06] MEDS: FAMOTIDINE 20 MG in SYRINGE 3 ML IV SCH (20:26)
[2021-04-06] MEDS: MIRTAZAPINE TAB 15 MG TAB PO SCH (21:42)
[2021-04-07] MEDS: CEFEPIME 2,000 MG in SYRINGE 0 ML IV SCH ×3 (06:31→20:33)
[2021-04-07] MEDS: AZITHROMYCIN 500 MG in DEXTROSE 5% 250 ML IV SCH (06:31)
[2021-04-07 06:34] LABS: Hemoglobin 10.7 g/dL (12.0-16.0); Immature Granulocytes # (auto) 0.02 K/uL (0.00-0.02); Immature Granulocytes % (auto) 0.4 %; Lymphocytes # (auto) 0.71 K/uL (1.2-3.4); Lymphocytes % (auto) 14.5 %; Mean Corpuscular Hemoglobin 31.7 pg (25-34); Mean Corpuscular Hgb Conc 32.4 g/dL (32-36); Mean Corpuscular Volume 97.6 fL (80-100); Mean Platelet Volume 9.4 fL (7.4-10.4); Monocytes # (auto) 0.24 K/uL (0.11-0.59); Monocytes % (auto) 4.9 %; Neutrophils # (auto) 3.94 K/uL (1.4-6.5); Neutrophils % (auto) 80.2 %; Platelet Count 210 K/uL (130-400); RDW Coefficient of Variation 13.2 % (11.5-14.5); RDW Standard Deviation 47.8 fL (36.4-46.3); Red Blood Count 3.38 M/uL (4.2-5.4); White Blood Count 4.91 K/uL (4.8-10.8)
[2021-04-07 06:51] LABS: RBC Morphology Unremarkable
[2021-04-07 06:58] LABS: Alanine Aminotransferase 11 U/L (7-52); Albumin Globulin Ratio 1.4 (0.9-2); Alkaline Phosphatase 61 U/L (34-104); Anion Gap 1 (3-11); Aspartate Aminotransferase 15 U/L (13-39); BUN Creatinine Ratio 33.3 (10-20); Bilirubin,Total 0.2 mg/dl (0.2-1.0); Blood Urea Nitrogen 14 mg/dl (6-23); C Reactive Protein < 0.50 mg/dl (0-0.5); Calcium 7.8 mg/dl (8.5-10.1); Carbon Dioxide 34 mmol/L (21-32); Chloride 99 mmol/L (98-107); Creatinine Clr Calc Pharmacy 91.3 ml/min; Est GFR (African American) 123.8 ml/min; Est GFR (Non-African American) 106.8 ml/min; Globulin 2.2 gm/dl (2.5-4.0); Glucose 72 mg/dl (70-99(Fasting)); Potassium 3.6 mmol/L (3.5-5.1); Sodium 134 mmol/L (136-145); Total Protein 5.2 gm/dl (6.0-8.3)
[2021-04-07] MEDS: ALBUTEROL HFA 8 GM INHALER INH SCH ×5 (07:25→19:40)
[2021-04-07] MEDS: SODIUM CHLORIDE 1 GM TABLET PO SCH (07:25)
[2021-04-07] MEDS: LACTOBACILLUS ACIDOPHILUS 1 GM PACK PO SCH ×3 (07:26→15:32)
[2021-04-07] MEDS: DICLOFENAC SOD 1% GEL 100 GM TUBE EXT PRN (07:26)
[2021-04-07] MEDS: FAMOTIDINE 20 MG in SYRINGE 3 ML IV SCH (07:32)
[2021-04-07] MEDS: ENOXAPARIN INJ 40 MG/0.4 ML SYR SQ SCH ×2 (08:20→20:32)
[2021-04-07] MEDS: THIAMINE HCL 100 MG TAB PO SCH (08:20)
[2021-04-07] MEDS: NICOTINE 14 MG/24 HR PATCH TD SCH (08:20)
[2021-04-07] MEDS: dexAMETHasone 6 MG in SYRINGE 0 ML IV SCH (11:36)
[2021-04-07] MEDS: UMECLIDINIUM BROMIDE 62.5MCG/BLISTER 7 PUFFS/INHALER INH SCH (11:37)
[2021-04-07] MEDS: REMDESIVIR 100 MG in SODIUM CHLORIDE 0.9% 230 ML IV SCH (11:37)
[2021-04-07] MEDS: FLUTICASONE/VILANTEROL 200/25MCG 14 PUFFS/INHALER INH SCH (11:38)
--- NOTE | 2021-04-07 15:08 | Hospitalist Progress Note ---
Date of Service April 07, 2021 Assessment & Plan (1) Pneumonia due to COVID-19 virus: Plan: Amy is a 65-year-old female with a past medical history of severe COPD, chronic respiratory failure with hypoxia on 4LNC, SIADH, malnutrition, esophageal dysmotility with dysphagia, thiamine and B12 deficiency, depression, cirrhosis, bilateral kidney stones, and history of right pneumonectomy who presented with 1 day of cough, shortness of breath, and dyspnea and he was admitted for left lower lobe pneumonia COVID-positive. Acute hypoxic respiratory failure 2/2 Covid pneumonia and Serratia PNA Covid positive: 04/03/2021 First day of symptoms: 04/02/2021 Vaccination status: COVID vaccinated CTA: No evidence of acute PE. Consolidation in the base of the left lower lobe, severe left lung central lobar emphysema. Stable right pneumonectomy. Trace left pleural effusion. - Hx of R pneumonectomy, 2/2 large cell lung cancer due to smoking. CRP: 1.41 and now normal Continue dexamethasone x10-day course. Patient initially placed on twice daily dose on admission due to elevated risk, will continue daily at this time but if severe inflammatory response consider increased ARDS dosing. Remdesivir: completed 5 day course Baricitinib: Not indicated continue supplemental O2-is at baseline O2 levels but still quite SUAZO (2) Secondary bacterial pneumonia: Plan: History of pseudomonal pneumonia, started on Cefepime Sp cx here with Serratia -Continue cefepime to complete 7 day course Blood cultures no growth to date (3) COPD exacerbation: Plan: Acute COPD with exacerbation, in setting of pneumonia completed azithromycin 500 mg IV daily x3 days Continue albuterol nebulizers as needed/DuoNebs every morning, continue umeclidinium daily (4) Hypoxia: Plan: See above (5) History of pneumonectomy: Plan: See above (6) SIADH (syndrome of inappropriate ADH production): Plan: Sodium 124 upon admission Sodium improving now to 134, salt tabs can be discontinued Follow serial BMP Likely aggravated secondary to COVID-19 infection (7) Protein calorie malnutrition: Plan: Chronic issue secondary to primary lung problems (8) Depression: Plan: Continue mirtazapine Plan: CODE STATUS:DNR/DNI. code discussion 04/03/2021 DVT prophylaxis: Lovenox 40mg bid is what she is currently on-this is therapeutic dosing for her but in setting of COVID and high risk for VTE, ok to continue this for now Disposition: down grade off tele to med/surg, possible dc to home in 2 days Admission and Anticipated Discharge Date Admission Date: April 03, 2021 Subjective Still feels very SUAZO with ambulation around the room. Coughing up some mucus. Appetite is low, no diarrhea Tele with NSR, PACs, rates 60-80s Review of Systems Review of Systems: All systems reviewed & are unremarkable except as noted in HPI & below Physical Exam Constitutional: + cachectic and + underweight Eyes: + anicteric sclerae Neck: trachea midline, no thyromegaly Respiratory: normal respiratory effort Auscultation: + diminished lung sounds (throughout); no crackles, no rhonchi and no wheezes Cardiovascular: RRR, no murmur, no edema Chest (Breasts): Chest: normal inspection of chest Gastrointestinal (Abdomen): normal bowel sounds, soft, nontender, no hepatosplenomegaly Musculoskeletal: Extremities: extremities normal to inspection; no cyanosis and no clubbing Skin: no rashes, warm and dry Neurologic: moves all extremities and awake; no focal motor deficits Psychiatric: A+Ox3, euthymic affect Lymphatic: no lymphedema Results & Data Results & Data ([facility]) Vital Signs (Past 12 Hours) Vital Signs Temp Pulse Pulse Resp BP Pulse Ox 04/07/21 14:26 88 18 95 04/07/21 11:26 93 H 18 95 04/07/21 11:08 36.8 C 97 H 18 136/76 94 04/07/21 08:13 91 H 20 97 04/07/21 08:02 36.4 C L 88 20 134/71 97 04/07/21 08:00 72 04/07/21 03:42 80 04/07/21 03:31 36.5 C 75 20 139/69 97 PG Care Time/CCT Total # of Minutes Spent Total Time Spent with Patient: Total time spent is greater than 50% in coordination of care (as documented) at patient's floor/unit and/or counseling patient: Coding Level of Care Code 55653 Subseq Hosp Care Lvl 3 Diagnoses Pneumonia due to COVID-19 virus U07.1; J12.82 Secondary bacterial pneumonia J15.9 COPD exacerbation J44.1 Hypoxia R09.02 History of pneumonectomy Z98.890; Z90.2 SIADH (syndrome of inappropriate ADH production) E22.2 Protein calorie malnutrition E46 Depression F32.9
[2021-04-07] MEDS: MIRTAZAPINE TAB 15 MG TAB PO SCH (20:33)
[2021-04-07] MEDS: FAMOTIDINE 20 MG TAB PO SCH (20:34)
[2021-04-07] MEDS: ACETAMINOPHEN 325 MG TAB PO PRN (20:35)
[2021-04-07] MEDS: BENZONATATE 100 MG CAPSULE PO PRN (20:48)
[2021-04-08] MEDS: CEFEPIME 2,000 MG in SYRINGE 0 ML IV SCH ×3 (06:00→21:32)
[2021-04-08] MEDS: FAMOTIDINE 20 MG TAB PO SCH ×2 (07:13→21:32)
[2021-04-08] MEDS: MIRTAZAPINE TAB 15 MG TAB PO SCH (07:14)
[2021-04-08] MEDS: THIAMINE HCL 100 MG TAB PO SCH (07:15)
[2021-04-08] MEDS: LACTOBACILLUS ACIDOPHILUS 1 GM PACK PO SCH ×3 (07:15→13:59)
[2021-04-08] MEDS: ENOXAPARIN INJ 40 MG/0.4 ML SYR SQ SCH ×2 (07:16→21:32)
[2021-04-08] MEDS: NICOTINE 14 MG/24 HR PATCH TD SCH (07:16)
[2021-04-08] MEDS: ALBUTEROL HFA 8 GM INHALER INH SCH ×4 (07:43→19:29)
[2021-04-08] MEDS: ACETAMINOPHEN 325 MG TAB PO PRN ×3 (07:58→21:37)
[2021-04-08 09:03] LABS: Eosinophils # (auto) 0.01 K/uL (0-0.5); Eosinophils % (auto) 0.1 %; Hematocrit (blood only) 36.8 % (37-47); Hemoglobin 11.7 g/dL (12.0-16.0); Immature Granulocytes # (auto) 0.08 K/uL (0.00-0.02); Immature Granulocytes % (auto) 1.1 %; Lymphocytes % (auto) 9.7 %; Mean Corpuscular Hemoglobin 31.1 pg (25-34); Mean Corpuscular Hgb Conc 31.8 g/dL (32-36); Mean Corpuscular Volume 97.9 fL (80-100); Mean Platelet Volume 9.9 fL (7.4-10.4); Monocytes # (auto) 0.72 K/uL (0.11-0.59); Monocytes % (auto) 9.9 %; Neutrophils # (auto) 5.73 K/uL (1.4-6.5); Neutrophils % (auto) 79.2 %; Platelet Count 263 K/uL (130-400); RDW Coefficient of Variation 13.3 % (11.5-14.5); RDW Standard Deviation 47.6 fL (36.4-46.3); Red Blood Count 3.76 M/uL (4.2-5.4); White Blood Count 7.24 K/uL (4.8-10.8)
[2021-04-08 09:29] LABS: Albumin Globulin Ratio 1.3 (0.9-2); Albumin Level 3.3 gm/dl (3.4-5.0); BUN Creatinine Ratio 30.4 (10-20); Bilirubin,Total 0.3 mg/dl (0.2-1.0); Calcium 8.2 mg/dl (8.5-10.1); Creatinine Clr Calc Pharmacy 81.9 ml/min; Est GFR (African American) 120.1 ml/min; Est GFR (Non-African American) 103.7 ml/min; Globulin 2.6 gm/dl (2.5-4.0); Potassium 3.1 mmol/L (3.5-5.1); Total Protein 5.9 gm/dl (6.0-8.3)
[2021-04-08] MEDS: UMECLIDINIUM BROMIDE 62.5MCG/BLISTER 7 PUFFS/INHALER INH SCH (10:28)
[2021-04-08] MEDS: FLUTICASONE/VILANTEROL 200/25MCG 14 PUFFS/INHALER INH SCH (10:28)
[2021-04-08] MEDS: dexAMETHasone 6 MG in SYRINGE 0 ML IV SCH (10:31)
[2021-04-08] MEDS ORDERED: POTASSIUM CHLORIDE CRTAB 20 MEQ TABCR PO STA (11:18)
--- NOTE | 2021-04-08 15:54 | Hospitalist Progress Note ---
Date of Service April 08, 2021 Assessment & Plan (1) Pneumonia due to COVID-19 virus: Plan: Amy is a 65-year-old female with a past medical history of severe COPD, chronic respiratory failure with hypoxia on 4LNC, SIADH, malnutrition, esophageal dysmotility with dysphagia, thiamine and B12 deficiency, depression, cirrhosis, bilateral kidney stones, and history of right pneumonectomy who presented with 1 day of cough, shortness of breath, and dyspnea and he was admitted for left lower lobe pneumonia COVID-positive. Acute hypoxic respiratory failure 2/2 Covid pneumonia and Serratia PNA Covid positive: 04/03/2021 First day of symptoms: 04/02/2021 Vaccination status: COVID vaccinated CTA: No evidence of acute PE. Consolidation in the base of the left lower lobe, severe left lung central lobar emphysema. Stable right pneumonectomy. Trace left pleural effusion. - Hx of R pneumonectomy, 2/2 large cell lung cancer due to smoking. CRP: 1.41 and now normal Continue dexamethasone x10-day course. Patient initially placed on twice daily dose on admission due to elevated risk, will continue daily at this time but if severe inflammatory response consider increased ARDS dosing. Remdesivir: completed 5 day course Baricitinib: Not indicated continue supplemental O2-is at baseline O2 levels but still quite SUAZO (2) Secondary bacterial pneumonia: Plan: History of pseudomonal pneumonia, started on Cefepime Sp cx here with Serratia -Continue cefepime to complete 7 day course Blood cultures no growth to date (3) COPD exacerbation: Plan: Acute COPD with exacerbation, in setting of pneumonia completed azithromycin 500 mg IV daily x3 days Continue albuterol nebulizers as needed/DuoNebs every morning, continue umeclidinium daily (4) Hypoxia: Plan: See above (5) History of pneumonectomy: Plan: See above (6) SIADH (syndrome of inappropriate ADH production): Plan: Sodium 124 upon admission Sodium improving now to 133, salt tabs discontinued Follow serial BMP Likely aggravated secondary to COVID-19 infection (7) Protein calorie malnutrition: Plan: Chronic issue secondary to primary lung problems (8) Depression: Plan: Continue mirtazapine (9) Hypokalemia: Plan: replace with po K+ follow BMP, Mag in AM Plan: CODE STATUS:DNR/DNI. code discussion 04/03/2021 DVT prophylaxis: Lovenox 40mg bid is what she is currently on-this is therapeutic dosing for her but in setting of COVID and high risk for VTE, ok to continue this for now Disposition: continued stay on med/surg, possible dc to home in 2 days Admission and Anticipated Discharge Date Admission Date: April 03, 2021 Subjective Pt still with SUAZO, coughing, feels weak, poor appetite but slowly improving. Review of Systems Review of Systems: All systems reviewed & are unremarkable except as noted in HPI & below Physical Exam Constitutional: + cachectic and + underweight Eyes: + anicteric sclerae Neck: trachea midline, no thyromegaly Respiratory: normal respiratory effort Auscultation: + diminished lung sounds (throughout); no crackles, no rhonchi and no wheezes Cardiovascular: RRR, no murmur, no edema Chest (Breasts): Chest: normal inspection of chest Gastrointestinal (Abdomen): normal bowel sounds, soft, nontender, no hepatosplenomegaly Musculoskeletal: Extremities: extremities normal to inspection; no cyanosis and no clubbing Skin: no rashes, warm and dry Neurologic: moves all extremities and awake; no focal motor deficits Psychiatric: A+Ox3, euthymic affect Lymphatic: no lymphedema Results & Data Results & Data ([facility]) Vital Signs (Past 12 Hours) Vital Signs Temp Pulse Resp BP Pulse Ox Pulse Ox Pulse Ox 04/08/21 15:05 86 16 95 04/08/21 12:44 97 04/08/21 10:48 90 16 95 04/08/21 09:16 97 96 04/08/21 07:44 86 16 94 04/08/21 07:36 37.0 C 84 20 135/69 91 Pulse Ox 04/08/21 15:05 04/08/21 12:44 04/08/21 10:48 04/08/21 09:16 90 04/08/21 07:44 04/08/21 07:36 Laboratory Results hypokalemia PG Care Time/CCT Total # of Minutes Spent Total Time Spent with Patient: Total time spent is greater than 50% in coordination of care (as documented) at patient's floor/unit and/or counseling patient: Coding Level of Care Code 66114 Subseq Hosp Care Lvl 2 Diagnoses Pneumonia due to COVID-19 virus U07.1; J12.82 Secondary bacterial pneumonia J15.9 COPD exacerbation J44.1 Hypoxia R09.02 History of pneumonectomy Z98.890; Z90.2 SIADH (syndrome of inappropriate ADH production) E22.2 Protein calorie malnutrition E46 Depression F32.9 Hypokalemia E87.6
[2021-04-08] MEDS: FORMOTEROL 20 MCG/2 ML VIAL NEB SCH (19:28)
[2021-04-08] MEDS: BUDESONIDE 0.5 MG/2 ML VIAL (PULMICORT) NEB SCH (19:28)
[2021-04-08] MEDS: BENZONATATE 100 MG CAPSULE PO PRN (21:37)
[2021-04-09] MEDS: CEFEPIME 2,000 MG in SYRINGE 0 ML IV SCH ×3 (06:26→20:33)
[2021-04-09] MEDS: BUDESONIDE 0.5 MG/2 ML VIAL (PULMICORT) NEB SCH ×2 (07:49→20:01)
[2021-04-09] MEDS: FORMOTEROL 20 MCG/2 ML VIAL NEB SCH ×2 (07:49→20:01)
[2021-04-09] MEDS: ALBUTEROL HFA 8 GM INHALER INH SCH ×4 (07:49→20:02)
[2021-04-09] MEDS: ENOXAPARIN INJ 40 MG/0.4 ML SYR SQ SCH (07:52)
[2021-04-09] MEDS: THIAMINE HCL 100 MG TAB PO SCH (07:53)
[2021-04-09] MEDS: FAMOTIDINE 20 MG TAB PO SCH ×2 (07:53→20:34)
[2021-04-09] MEDS: NICOTINE 14 MG/24 HR PATCH TD SCH (07:53)
[2021-04-09] MEDS: LACTOBACILLUS ACIDOPHILUS 1 GM PACK PO SCH ×3 (07:56→16:01)
[2021-04-09] MEDS: ACETAMINOPHEN 325 MG TAB PO PRN ×2 (08:02→17:44)
[2021-04-09] MEDS ORDERED: dexAMETHasone 6 MG in SYRINGE 0 ML IV SCH (09:00)
[2021-04-09 10:40] LABS: Albumin Globulin Ratio 1.3 (0.9-2); Albumin Level 2.9 gm/dl (3.4-5.0); BUN Creatinine Ratio 32.6 (10-20); Bilirubin,Total 0.3 mg/dl (0.2-1.0); Creatinine Clr Calc Pharmacy 87.6 ml/min; Est GFR (African American) 122.8 ml/min; Globulin 2.2 gm/dl (2.5-4.0); Magnesium 1.1 mg/dl (1.7-2.4); Potassium 3.2 mmol/L (3.5-5.1); Total Protein 5.1 gm/dl (6.0-8.3)
[2021-04-09] MEDS: dexAMETHasone 6 MG in SYRINGE 0 ML IV SCH (13:01)
[2021-04-09] MEDS ORDERED: POTASSIUM CHLORIDE CRTAB 20 MEQ TABCR PO STA (13:19)
[2021-04-09] MEDS: MAGNESIUM SULFATE / D5W 1 GM/100 ML BAG IV SCH ×4 (14:05→20:33)
[2021-04-09] MEDS: UMECLIDINIUM BROMIDE 62.5MCG/BLISTER 7 PUFFS/INHALER INH SCH (14:16)
--- NOTE | 2021-04-09 15:23 | Hospitalist Progress Note ---
Date of Service April 09, 2021 Assessment & Plan (1) Pneumonia due to COVID-19 virus: Plan: This patient is a 65-year-old female with a past medical history of severe COPD, chronic respiratory failure with hypoxia on 4LNC, SIADH, malnutrition, esophageal dysmotility with dysphagia, thiamine and B12 deficiency, depression, cirrhosis, bilateral kidney stones, and history of right pneumonectomy who presented with 1 day of cough, shortness of breath, and dyspnea and he was admitted for left lower lobe pneumonia COVID-positive. Acute hypoxic respiratory failure 2/2 Covid pneumonia and Serratia PNA Covid positive: 04/03/2021 First day of symptoms: 04/02/2021 Vaccination status: COVID vaccinated CTA: No evidence of acute PE. Consolidation in the base of the left lower lobe, severe left lung central lobar emphysema. Stable right pneumonectomy. Trace left pleural effusion. - Hx of R pneumonectomy, 2/2 large cell lung cancer due to smoking. CRP: 1.41 and now normal Continue dexamethasone x10-day course. Patient initially placed on twice daily dose on admission due to elevated risk, will continue daily at this time but if severe inflammatory response consider increased ARDS dosing. Remdesivir: completed 5 day course Baricitinib: Not indicated continue supplemental O2-is at baseline O2 levels but still quite SUAZO but is slightly improved (2) Secondary bacterial pneumonia: Plan: History of pseudomonal pneumonia, started on Cefepime empirically Sp cx here with Serratia -Continue cefepime to complete 7 day course-last dose will be on the evening of 04/09 Blood cultures no growth to date Improving Continue pulmonary toilet as above (3) COPD exacerbation: Plan: Acute COPD with exacerbation, in setting of pneumonia completed azithromycin 500 mg IV daily x3 days Continue albuterol nebulizers as needed/DuoNebs every morning, continue umeclidinium daily Changed to budesonide and formoterol nebulizers twice daily as she feels she is not able to get the inhalers down into her lungs (4) Hypoxia: Plan: See above (5) History of pneumonectomy: Plan: See above (6) SIADH (syndrome of inappropriate ADH production): Plan: Sodium 124 upon admission Sodium improved now to 133, salt tabs have since been discontinued Follow serial BMP Likely aggravated secondary to COVID-19 infection (7) Protein calorie malnutrition: Plan: Chronic issue secondary to primary lung problems (8) Depression: Plan: Continue mirtazapine (9) Hypokalemia: Plan: Fairly severe and with severe hypomagnesemia Continue to replace with po K+ 40 mEq today Replacing magnesium as below follow BMP, Mag in AM (10) Hypomagnesemia: Plan: Severe at 1.1 Replaced with 4 g of IV magnesium sulfate Follow level in the morning (11) Oral candidiasis: Plan: Secondary to steroid use Start nystatin swish and swallow 5 mL p.o. 4 times daily x10-day course Plan: CODE STATUS:DNR/DNI. code discussion 04/03/2021 DVT prophylaxis: Lovenox 40mg but decrease to once daily as her current dosing is therapeutic and she is more ambulatory now Disposition: continued stay on med/surg, possible dc to home in 1-2 days Admission and Anticipated Discharge Date Admission Date: April 03, 2021 Subjective Patient reports some pain in the mouth and feels like she has thrush. Otherwise feels her appetite is improving and shortness of breath is slightly improved. Still having pain in the back and around the torso, but declines to have anything stronger than Tylenol at this time, declines trying heating pad. It was discovered by the nurse today that the patient never took her potassium pills from yesterday. She reports that she was having trouble swallowing them because are so big but is willing to take them today with some pudding. Review of Systems Review of Systems: All systems reviewed & are unremarkable except as noted in HPI & below Physical Exam Constitutional: + cachectic and + underweight Eyes: + anicteric sclerae ENMT: Mouth: + oral mucosal abnormality (Small amount of white exudate on buccal mucosa) Neck: trachea midline, no thyromegaly Respiratory: normal respiratory effort Auscultation: + diminished lung sounds (throughout, but improved from yesterday); no crackles, no rhonchi and no wheezes Cardiovascular: RRR, no murmur, no edema Chest (Breasts): Chest: normal inspection of chest Gastrointestinal (Abdomen): normal bowel sounds, soft, nontender, no hepatosplenomegaly Musculoskeletal: Extremities: extremities normal to inspection; no cyanosis and no clubbing Skin: no rashes, warm and dry Neurologic: moves all extremities and awake; no focal motor deficits Psychiatric: A+Ox3, euthymic affect Lymphatic: no lymphedema Results & Data Results & Data ([facility]) Vital Signs (Past 12 Hours) Vital Signs Temp Pulse Resp BP Pulse Ox 04/09/21 11:12 94 H 18 93 04/09/21 07:49 95 H 20 96 04/09/21 06:14 36.9 C 75 18 122/65 95 Laboratory Results 04/09/21 Range/Units 10:00 Sodium 133 L (136-145) mmol/L Potassium 3.2 L (3.5-5.1) mmol/L Chloride 93 L (98-107) mmol/L Carbon Dioxide 35 H (21-32) mmol/L Anion Gap 5 (3-11) BUN 14 (6-23) mg/dl Creatinine 0.43 L (0.6-1.2) mg/dl Est Cr Clr Drug Dosing 87.6 ml/min Est GFR ( Amer) 122.8 ml/min Est GFR (Non-Af Amer) 106.0 ml/min BUN/Creatinine Ratio 32.6 H (10-20) Glucose 146 H (70-99(Fasting)) mg/dl Calcium 8.0 L (8.5-10.1) mg/dl Magnesium 1.1 L (1.7-2.4) mg/dl Total Bilirubin 0.3 (0.2-1.0) mg/dl AST 13 (13-39) U/L ALT 10 (7-52) U/L Alkaline Phosphatase 56 (34-104) U/L Total Protein 5.1 L (6.0-8.3) gm/dl Albumin 2.9 L (3.4-5.0) gm/dl Globulin 2.2 L (2.5-4.0) gm/dl Albumin/Globulin Ratio 1.3 (0.9-2) PG Care Time/CCT Total # of Minutes Spent Total Time Spent with Patient: Total time spent is greater than 50% in coordination of care (as documented) at patient's floor/unit and/or counseling patient: Coding Level of Care Code 06338 Subseq Hosp Care Lvl 3 Diagnoses Pneumonia due to COVID-19 virus U07.1; J12.82 Secondary bacterial pneumonia J15.9 COPD exacerbation J44.1 Hypoxia R09.02 History of pneumonectomy Z98.890; Z90.2 SIADH (syndrome of inappropriate ADH production) E22.2 Protein calorie malnutrition E46 Depression F32.9 Hypokalemia E87.6 Hypomagnesemia E83.42 Oral candidiasis B37.0
[2021-04-09] MEDS: NYSTATIN SUSP 500,000 U/5 ML UDC PO SCH ×2 (16:01→20:34)
[2021-04-09] MEDS: MIRTAZAPINE TAB 15 MG TAB PO SCH (20:33)
[2021-04-09] MEDS: LORazepam 0.5 MG TAB PO PRN (22:48)
[2021-04-09] MEDS: BENZONATATE 100 MG CAPSULE PO PRN (22:51)
[2021-04-10 07:09] LABS: BUN Creatinine Ratio 34.2 (10-20); Creatinine Clr Calc Pharmacy 99.1 ml/min; Est GFR (African American) 127.9 ml/min; Est GFR (Non-African American) 110.4 ml/min; Phosphorus 2.6 mg/dl (2.5-4.9); Potassium 4.1 mmol/L (3.5-5.1)
[2021-04-10] MEDS: ALBUTEROL HFA 8 GM INHALER INH SCH ×5 (07:39→20:13)
[2021-04-10] MEDS: FORMOTEROL 20 MCG/2 ML VIAL NEB SCH ×2 (07:39→20:12)
[2021-04-10] MEDS: BUDESONIDE 0.5 MG/2 ML VIAL (PULMICORT) NEB SCH ×2 (07:39→20:13)
[2021-04-10] MEDS: ACETAMINOPHEN 325 MG TAB PO PRN ×3 (08:15→21:38)
[2021-04-10] MEDS: NYSTATIN SUSP 500,000 U/5 ML UDC PO SCH ×4 (08:15→21:37)
[2021-04-10] MEDS: LACTOBACILLUS ACIDOPHILUS 1 GM PACK PO SCH ×3 (08:15→17:09)
[2021-04-10] MEDS: THIAMINE HCL 100 MG TAB PO SCH (08:15)
[2021-04-10] MEDS: NICOTINE 14 MG/24 HR PATCH TD SCH (08:16)
[2021-04-10] MEDS: FAMOTIDINE 20 MG TAB PO SCH ×2 (08:16→21:36)
[2021-04-10] MEDS: ENOXAPARIN INJ 40 MG/0.4 ML SYR SQ SCH (08:26)
--- NOTE | 2021-04-10 11:47 | Hospitalist Progress Note ---
Date of Service April 10, 2021 Assessment & Plan (1) Pneumonia due to COVID-19 virus: Plan: This patient is a 65-year-old female with a past medical history of severe COPD, chronic respiratory failure with hypoxia on 4LNC, SIADH, malnutrition, esophageal dysmotility with dysphagia, thiamine and B12 deficiency, depression, cirrhosis, bilateral kidney stones, and history of right pneumonectomy who presented with 1 day of cough, shortness of breath, and dyspnea and he was admitted for left lower lobe pneumonia COVID-positive. Acute hypoxic respiratory failure 2/2 Covid pneumonia and Serratia PNA Covid positive: 04/03/2021 First day of symptoms: 04/02/2021 Vaccination status: COVID vaccinated CTA: No evidence of acute PE. Consolidation in the base of the left lower lobe, severe left lung central lobar emphysema. Stable right pneumonectomy. Trace left pleural effusion. - Hx of R pneumonectomy, 2/2 large cell lung cancer due to smoking. CRP: 1.41 and now normal Continue dexamethasone x10-day course. Patient initially placed on twice daily dose on admission due to elevated risk, will continue daily at this time but if severe inflammatory response consider increased ARDS dosing. Remdesivir: completed 5 day course Baricitinib: Not indicated continue supplemental O2-is at baseline O2 levels but still quite SUAZO but is slightly improved -Add on flutter valve to mobilize secretions (2) Secondary bacterial pneumonia: Plan: History of pseudomonal pneumonia, started on Cefepime empirically Sp cx here with Serratia -Completed 7-day course of cefepime Blood cultures no growth to date Improving Continue pulmonary toilet as above -Plan for repeat chest imaging in 4 to 6 weeks to assess for resolution (3) COPD exacerbation: Plan: Acute COPD with exacerbation, in setting of pneumonia completed azithromycin 500 mg IV daily x3 days Continue albuterol nebulizers as needed/DuoNebs every morning, continue umeclidinium daily Changed to budesonide and formoterol nebulizers twice daily as she feels she is not able to get the inhalers down into her lungs Continue dexamethasone (4) Hypoxia: Plan: See above (5) History of pneumonectomy: Plan: See above (6) SIADH (syndrome of inappropriate ADH production): Plan: Sodium 124 upon admission Sodium improved now to 135, salt tabs have since been discontinued Follow serial BMP Likely aggravated secondary to COVID-19 infection (7) Protein calorie malnutrition: Plan: Chronic issue secondary to primary lung problems (8) Depression: Plan: Continue mirtazapine (9) Hypokalemia: Plan: Fairly severe and with severe hypomagnesemia Now resolved with aggressive replacement of IV magnesium and potassium follow BMP, Mag in AM (10) Hypomagnesemia: Plan: Severe, now resolved as above with replacement (11) Oral candidiasis: Plan: Secondary to steroid use Improving with nystatin Continue nystatin swish and swallow 5 mL p.o. 4 times daily x10-day course Plan: CODE STATUS:DNR/DNI. code discussion 04/03/2021 DVT prophylaxis: Lovenox 40mg once daily Disposition: continued stay on med/surg, possible dc to home in 1 to 2 days, will repeat two-step walk test to determine oxygen needs at time of discharge Admission and Anticipated Discharge Date Admission Date: April 03, 2021 Subjective Patient reports that she slept better last night with the addition of Ativan, but this morning is having a hard time "getting going." She is having a "terrible time in my chest" with lots of coughing and pain all around the torso with coughing. Does feel a little less short of breath with ambulating to the bathroom and back. Pain does seem to improve with Tylenol The pain in her mouth from her thrush is improving She is moving her bowels and seems to be less loose Remains on 2 L nasal cannula Review of Systems Review of Systems: All systems reviewed & are unremarkable except as noted in HPI & below Physical Exam Constitutional: + cachectic and + underweight Eyes: + anicteric sclerae ENMT: Mouth: + oral mucosal abnormality (No further white exudate, but appears mildly erythematous throughout) Neck: trachea midline, no thyromegaly Respiratory: normal respiratory effort, lungs clear to auscultation normal respiratory effort Auscultation: + diminished lung sounds (throughout, but improved from yesterday); no crackles, no rhonchi and no wheezes Cardiovascular: RRR, no murmur, no edema Chest (Breasts): Chest: normal inspection of chest Gastrointestinal (Abdomen): normal bowel sounds, soft, nontender, no hepatosplenomegaly Musculoskeletal: Extremities: extremities normal to inspection; no cyanosis and no clubbing Skin: no rashes, warm and dry Neurologic: moves all extremities and awake; no focal motor deficits Psychiatric: A+Ox3, euthymic affect Lymphatic: no lymphedema Results & Data Results & Data ([facility]) Vital Signs (Past 12 Hours) Vital Signs Temp Pulse Resp BP Pulse Ox Pulse Ox 04/10/21 10:37 108 H 21 98 04/10/21 07:39 80 20 97 04/10/21 07:27 36.5 C 72 20 114/69 99 04/10/21 07:00 99 Laboratory Results 04/10/21 Range/Units 05:48 Sodium 135 L (136-145) mmol/L Potassium 4.1 D (3.5-5.1) mmol/L Chloride 94 L (98-107) mmol/L Carbon Dioxide 40 H (21-32) mmol/L Anion Gap 1 L (3-11) BUN 13 (6-23) mg/dl Creatinine 0.38 L (0.6-1.2) mg/dl Est Cr Clr Drug Dosing 99.1 ml/min Est GFR ( Amer) 127.9 ml/min Est GFR (Non-Af Amer) 110.4 ml/min BUN/Creatinine Ratio 34.2 H (10-20) Glucose 67 L (70-99(Fasting)) mg/dl Calcium 8.0 L (8.5-10.1) mg/dl Phosphorus 2.6 (2.5-4.9) mg/dl Magnesium 2.0 (1.7-2.4) mg/dl PG Care Time/CCT Total # of Minutes Spent Total Time Spent with Patient: Total time spent is greater than 50% in coordination of care (as documented) at patient's floor/unit and/or counseling patient: Coding Level of Care Code 53880 Subseq Hosp Care Lvl 2 Diagnoses Pneumonia due to COVID-19 virus U07.1; J12.82 Secondary bacterial pneumonia J15.9 COPD exacerbation J44.1 Hypoxia R09.02 History of pneumonectomy Z98.890; Z90.2 SIADH (syndrome of inappropriate ADH production) E22.2 Protein calorie malnutrition E46 Depression F32.9 Hypokalemia E87.6 Hypomagnesemia E83.42 Oral candidiasis B37.0
[2021-04-10] MEDS: UMECLIDINIUM BROMIDE 62.5MCG/BLISTER 7 PUFFS/INHALER INH SCH (12:04)
[2021-04-10] MEDS: dexAMETHasone 6 MG in SYRINGE 0 ML IV SCH (13:32)
[2021-04-10] MEDS: MIRTAZAPINE TAB 15 MG TAB PO SCH (21:37)
[2021-04-10] MEDS: LORazepam 0.5 MG TAB PO PRN (21:38)
[2021-04-10] MEDS: BENZONATATE 100 MG CAPSULE PO PRN (21:39)
[2021-04-11] MEDS: ACETAMINOPHEN 325 MG TAB PO PRN (06:05)
[2021-04-11 06:38] LABS: Basophils # (auto) 0.01 K/uL (0-0.2); Basophils % (auto) 0.1 %; Hematocrit (blood only) 33.2 % (37-47); Hemoglobin 10.7 g/dL (12.0-16.0); Immature Granulocytes % (auto) 2.1 %; Lymphocytes # (auto) 0.57 K/uL (1.2-3.4); Lymphocytes % (auto) 6.1 %; Mean Corpuscular Hemoglobin 31.7 pg (25-34); Mean Corpuscular Hgb Conc 32.2 g/dL (32-36); Mean Corpuscular Volume 98.2 fL (80-100); Mean Platelet Volume 9.2 fL (7.4-10.4); Monocytes # (auto) 1.23 K/uL (0.11-0.59); Monocytes % (auto) 13.1 %; Neutrophils # (auto) 7.41 K/uL (1.4-6.5); Neutrophils % (auto) 78.6 %; Platelet Count 244 K/uL (130-400); RDW Coefficient of Variation 13.7 % (11.5-14.5); RDW Standard Deviation 48.6 fL (36.4-46.3); Red Blood Count 3.38 M/uL (4.2-5.4); White Blood Count 9.42 K/uL (4.8-10.8)
[2021-04-11 07:07] LABS: Albumin Globulin Ratio 1.6 (0.9-2); Albumin Level 3.3 gm/dl (3.4-5.0); BUN Creatinine Ratio 25.5 (10-20); Bilirubin,Total 0.3 mg/dl (0.2-1.0); Calcium 8.5 mg/dl (8.5-10.1); Creatinine Clr Calc Pharmacy 73.8 ml/min; Est GFR (African American) 116.1 ml/min; Est GFR (Non-African American) 100.2 ml/min; Globulin 2.1 gm/dl (2.5-4.0); Magnesium 1.5 mg/dl (1.7-2.4); Phosphorus 3.1 mg/dl (2.5-4.9); Total Protein 5.4 gm/dl (6.0-8.3)
[2021-04-11] MEDS: BUDESONIDE 0.5 MG/2 ML VIAL (PULMICORT) NEB SCH ×2 (08:30→19:07)
[2021-04-11] MEDS: FORMOTEROL 20 MCG/2 ML VIAL NEB SCH ×2 (08:30→19:06)
[2021-04-11] MEDS: ALBUTEROL HFA 8 GM INHALER INH SCH ×4 (08:31→19:07)
[2021-04-11] MEDS: LACTOBACILLUS ACIDOPHILUS 1 GM PACK PO SCH ×3 (09:00→16:11)
[2021-04-11] MEDS: MAGNESIUM SULFATE / D5W 1 GM/100 ML BAG IV SCH ×2 (09:00→11:06)
[2021-04-11] MEDS: ENOXAPARIN INJ 40 MG/0.4 ML SYR SQ SCH (09:04)
[2021-04-11] MEDS: NYSTATIN SUSP 500,000 U/5 ML UDC PO SCH ×4 (09:05→20:20)
[2021-04-11] MEDS: NICOTINE 14 MG/24 HR PATCH TD SCH (09:05)
[2021-04-11] MEDS: THIAMINE HCL 100 MG TAB PO SCH (09:05)
[2021-04-11] MEDS: FAMOTIDINE 20 MG TAB PO SCH ×2 (09:05→20:18)
[2021-04-11] MEDS: UMECLIDINIUM BROMIDE 62.5MCG/BLISTER 7 PUFFS/INHALER INH SCH (11:05)
[2021-04-11] MEDS: dexAMETHasone 6 MG in SYRINGE 0 ML IV SCH (12:43)
[2021-04-11] MEDS ORDERED: LORazepam 0.5 MG TAB PO STA (13:08)
--- NOTE | 2021-04-11 13:13 | Hospitalist Progress Note ---
Date of Service April 11, 2021 Assessment & Plan (1) Pneumonia due to COVID-19 virus: Plan: This patient is a 65-year-old female with a past medical history of severe COPD, chronic respiratory failure with hypoxia on 4LNC, SIADH, malnutrition, esophageal dysmotility with dysphagia, thiamine and B12 deficiency, depression, cirrhosis, bilateral kidney stones, and history of right pneumonectomy who presented with 1 day of cough, shortness of breath, and dyspnea and he was admitted for left lower lobe pneumonia COVID-positive. Acute hypoxic respiratory failure 2/2 Covid pneumonia and Serratia PNA Covid positive: 04/03/2021 First day of symptoms: 04/02/2021 Vaccination status: COVID vaccinated CTA: No evidence of acute PE. Consolidation in the base of the left lower lobe, severe left lung central lobar emphysema. Stable right pneumonectomy. Trace left pleural effusion. - Hx of R pneumonectomy, 2/2 large cell lung cancer due to smoking. CRP: 1.41 and then came down to normal Continue dexamethasone x10-day course. Remdesivir: completed 5 day course Baricitinib: Not indicated continue supplemental O2-is at baseline O2 levels but still quite SUAZO but is slightly improved -continue on flutter valve to mobilize secretions (2) Secondary bacterial pneumonia: Plan: History of pseudomonal pneumonia, started on Cefepime empirically Sp cx here with Serratia -Completed 7-day course of cefepime Blood cultures no growth to date Improving Continue pulmonary toilet as above -Plan for repeat chest imaging in 4 to 6 weeks to assess for resolution (3) Muscle spasm: Plan: with ongoing MSK pain in entire torso for the entire admission, now with severe muscle cramping in chest and back with any movement or touch. Likely from low magnesium levels and possibly from hypoxia when tried to wean off O2 today? Also with excessive use of resp muscles over many days -trial ativan po x 1 -start heating pad could try tizanidine or flexeril later if needed -replace magnesium (4) COPD exacerbation: Plan: Acute COPD with exacerbation, in setting of pneumonia completed azithromycin 500 mg IV daily x3 days Continue albuterol nebulizers as needed/DuoNebs every morning, continue umeclidinium daily Changed to budesonide and formoterol nebulizers twice daily as she feels she is not able to get the inhalers down into her lungs Continue dexamethasone (5) Hypoxia: Plan: See above will do 2 step walk test prior to discharge (6) History of pneumonectomy: Plan: See above (7) SIADH (syndrome of inappropriate ADH production): Plan: Sodium 124 upon admission Sodium improved now to 137, salt tabs have since been discontinued Follow serial BMP Likely aggravated secondary to COVID-19 infection (8) Protein calorie malnutrition: Plan: Chronic issue secondary to primary lung problems (9) Depression: Plan: Continue mirtazapine (10) Hypokalemia: Plan: Fairly severe and with severe hypomagnesemia Now resolved with replacement of K and mag follow BMP, Mag in AM (11) Hypomagnesemia: Plan: Severe, now improved with replacement but remains low at 1.5 give another 2 grams of IV magnesium follow level in AM (12) Oral candidiasis: Plan: Secondary to steroid use Improving with nystatin Continue nystatin swish and swallow 5 mL p.o. 4 times daily x10-day course Plan: CODE STATUS:DNR/DNI. code discussion 04/03/2021 DVT prophylaxis: Lovenox 40mg once daily Disposition: continued stay on med/surg, possible dc to home tomorrow if muscle spasms improvimg. Will repeat two-step walk test to determine oxygen needs at time of discharge Admission and Anticipated Discharge Date Admission Date: April 03, 2021 Subjective Pt recently started having severe muscle spasms all over her chest and back in the last few minutes. SHe said she was weaned to room air at rest nd POx 82% and then this started. ALso her magnesium level is low. Review of Systems Review of Systems: All systems reviewed & are unremarkable except as noted in HPI & below Physical Exam Constitutional: + cachectic and + underweight Eyes: + anicteric sclerae Neck: trachea midline, no thyromegaly Respiratory: normal respiratory effort, lungs clear to auscultation normal respiratory effort Auscultation: + diminished lung sounds (throughout, but improved from yesterday); no crackles, no rhonchi and no wheezes Cardiovascular: RRR, no murmur, no edema Chest (Breasts): Chest: normal inspection of chest Additional Comments: +severe pain and spasm when touched anywhere on torso Gastrointestinal (Abdomen): normal bowel sounds, soft, nontender, no hepatosplenomegaly Musculoskeletal: Extremities: extremities normal to inspection; no cyanosis and no clubbing Skin: no rashes, warm and dry Neurologic: moves all extremities and awake; no focal motor deficits Psychiatric: A+Ox3, euthymic affect Lymphatic: no lymphedema Results & Data Results & Data ([facility]) Vital Signs (Past 12 Hours) Vital Signs Temp Pulse Resp BP Pulse Ox 04/11/21 11:26 109 H 26 H 82 L 04/11/21 08:31 96 H 18 96 04/11/21 07:35 37.0 C 81 20 131/70 99 Laboratory Results 04/11/21 04/11/21 Range/Units 05:55 05:55 WBC 9.42 (4.8-10.8) K/uL RBC 3.38 L (4.2-5.4) M/uL Hgb 10.7 L (12.0-16.0) g/dL Hct 33.2 L (37-47) % MCV 98.2 (80-100) fL MCH 31.7 (25-34) pg MCHC 32.2 (32-36) g/dL RDW Std Deviation 48.6 H (36.4-46.3) fL RDW Coeff of Niru 13.7 (11.5-14.5) % Plt Count 244 (130-400) K/uL MPV 9.2 (7.4-10.4) fL Immature Gran % (Auto) 2.1 % Neut % (Auto) 78.6 % Lymph % (Auto) 6.1 % Haskell % (Auto) 13.1 % Eos % (Auto) 0.0 % Baso % (Auto) 0.1 % Neut # (Auto) 7.41 H (1.4-6.5) K/uL Lymph # (Auto) 0.57 L (1.2-3.4) K/uL Haskell # (Auto) 1.23 H (0.11-0.59) K/uL Eos # (Auto) 0.00 (0-0.5) K/uL Baso # (Auto) 0.01 (0-0.2) K/uL Immature Gran # (Auto) 0.20 H (0.00-0.02) K/uL Sodium 137 (136-145) mmol/L Potassium 4.0 (3.5-5.1) mmol/L Chloride 93 L (98-107) mmol/L Carbon Dioxide 41 H* (21-32) mmol/L Anion Gap 3 (3-11) BUN 13 (6-23) mg/dl Creatinine 0.51 L (0.6-1.2) mg/dl Est Cr Clr Drug Dosing 73.8 ml/min Est GFR ( Amer) 116.1 ml/min Est GFR (Non-Af Amer) 100.2 ml/min BUN/Creatinine Ratio 25.5 H (10-20) Glucose 67 L (70-99(Fasting)) mg/dl Calcium 8.5 (8.5-10.1) mg/dl Phosphorus 3.1 (2.5-4.9) mg/dl Magnesium 1.5 L (1.7-2.4) mg/dl Total Bilirubin 0.3 (0.2-1.0) mg/dl AST 16 (13-39) U/L ALT 11 (7-52) U/L Alkaline Phosphatase 59 (34-104) U/L Total Protein 5.4 L (6.0-8.3) gm/dl Albumin 3.3 L (3.4-5.0) gm/dl Globulin 2.1 L (2.5-4.0) gm/dl Albumin/Globulin Ratio 1.6 (0.9-2) PG Care Time/CCT Total # of Minutes Spent Total Time Spent with Patient: Total time spent is greater than 50% in coordination of care (as documented) at patient's floor/unit and/or counseling patient: Coding Level of Care Code 80141 Subseq Hosp Care Lvl 2 Diagnoses Pneumonia due to COVID-19 virus U07.1; J12.82 Secondary bacterial pneumonia J15.9 COPD exacerbation J44.1 Hypoxia R09.02 History of pneumonectomy Z98.890; Z90.2 SIADH (syndrome of inappropriate ADH production) E22.2 Protein calorie malnutrition E46 Depression F32.9 Hypokalemia E87.6 Hypomagnesemia E83.42 Oral candidiasis B37.0 Muscle spasm M62.838
[2021-04-11] MEDS ORDERED: tiZANidine HCL 4 MG TABLET PO PRN (13:20)
[2021-04-11] MEDS: MIRTAZAPINE TAB 15 MG TAB PO SCH (20:19)
[2021-04-11] MEDS: BENZONATATE 100 MG CAPSULE PO PRN (21:32)
[2021-04-11] MEDS: LORazepam 0.5 MG TAB PO PRN (21:32)
[2021-04-12 06:33] LABS: BUN Creatinine Ratio 28.3 (10-20); Calcium 8.4 mg/dl (8.5-10.1); Creatinine Clr Calc Pharmacy 81.7 ml/min; Est GFR (African American) 120.1 ml/min; Est GFR (Non-African American) 103.7 ml/min; Magnesium 1.4 mg/dl (1.7-2.4); Phosphorus 3.4 mg/dl (2.5-4.9); Potassium 3.9 mmol/L (3.5-5.1)
[2021-04-12] MEDS: FORMOTEROL 20 MCG/2 ML VIAL NEB SCH ×2 (07:11→19:43)
[2021-04-12] MEDS: ALBUTEROL HFA 8 GM INHALER INH SCH ×4 (07:11→19:43)
[2021-04-12] MEDS: BUDESONIDE 0.5 MG/2 ML VIAL (PULMICORT) NEB SCH ×2 (07:11→19:39)
[2021-04-12] MEDS: BENZONATATE 100 MG CAPSULE PO PRN ×2 (07:45→20:17)
[2021-04-12] MEDS: LACTOBACILLUS ACIDOPHILUS 1 GM PACK PO SCH (07:45)
[2021-04-12] MEDS: ENOXAPARIN INJ 40 MG/0.4 ML SYR SQ SCH (08:42)
[2021-04-12] MEDS ORDERED: POTASSIUM CHLORIDE CRTAB 20 MEQ TABCR PO STA (08:42)
[2021-04-12] MEDS: THIAMINE HCL 100 MG TAB PO SCH (08:43)
[2021-04-12] MEDS: NYSTATIN SUSP 500,000 U/5 ML UDC PO SCH ×5 (08:43→20:12)
[2021-04-12] MEDS: NICOTINE 14 MG/24 HR PATCH TD SCH (08:43)
[2021-04-12] MEDS: FAMOTIDINE 20 MG TAB PO SCH ×2 (08:43→20:10)
[2021-04-12] MEDS: MAGNESIUM SULFATE / D5W 1 GM/100 ML BAG IV SCH ×3 (09:35→14:20)
[2021-04-12] MEDS: UMECLIDINIUM BROMIDE 62.5MCG/BLISTER 7 PUFFS/INHALER INH SCH (12:05)
[2021-04-12] MEDS: ADVANCED PROBIOTIC 1250 MG CAPSULE PO SCH (12:06)
[2021-04-12] MEDS: dexAMETHasone 6 MG in SYRINGE 0 ML IV SCH (12:07)
--- NOTE | 2021-04-12 12:19 | Discharge Summary ---
Date of Service April 12, 2021 Admission HPI Per Admitting Provider The patient is a 65-year-old female with a past medical history including COPD exacerbation, SIADH, protein calorie malnutrition, esophageal dysmotility, dysphagia, thiamine deficiency, B12 deficiency, depression, liver cirrhosis, dilation of thoracic aorta, chronic reflux esophagitis, COPD, bilateral kidney stones, history of total right pneumonectomy. She began with rapidly worsening symptoms of productive cough, shortness of breath, dyspnea exertion and generalized fatigue since yesterday. At rest patient is mildly short of breath, but with minimal movement becomes extremely short of breath. CT angiography chest PE protocol: Negative for PE. Left lower lobe consolidation. Total right pneumonectomy stable Significant laboratories: Sodium 124. COVID-19 testing positive. Influenza A and B negative. RSV negative. Principal Diagnosis Acute on chronic respiratory failure with hypoxia, COVID-19, Serratia Pneumonia, Hypomagnesemia, Oral Candidiasis Discharge Exam Constitutional + cachectic and + underweight Eyes + anicteric sclerae Neck trachea midline, no thyromegaly Respiratory normal respiratory effort Auscultation: + diminished lung sounds (throughout, but improved from yesterday) and + rhonchi (coarse upper airway sounds); no crackles and no wheezes Cardiovascular RRR, no murmur, no edema Chest (Breasts) Chest: normal inspection of chest Gastrointestinal (Abdomen) normal bowel sounds, soft, nontender, no hepatosplenomegaly Musculoskeletal Extremities: extremities normal to inspection; no cyanosis and no clubbing Skin no rashes, warm and dry Neurologic moves all extremities and awake; no focal motor deficits Psychiatric A+Ox3, euthymic affect Lymphatic no lymphedema Discharge Data Allergies Allergy/AdvReac Type Severity Reaction Status Date / Time aspirin Allergy Severe SEVERE Verified 04/02/21 22:09 STOMACH CRAMPING sulfamethoxazole Allergy Severe TONGUE Verified 04/02/21 22:09 SWELLING trimethoprim Allergy Severe TONGUE Verified 04/02/21 22:09 SWELLING Penicillins Allergy Unknown Unknown Verified 04/02/21 22:09 Consultations 04/03/21 02:40 ED Decision to Admit Stat Ordered Studies 04/02/21 23:09 CT angio chest PE protocol Urgent Hospital Course (1) Pneumonia due to COVID-19 virus: This patient is a 65-year-old female with a past medical history of severe COPD, chronic respiratory failure with hypoxia on 4LNC, SIADH, malnutrition, esophageal dysmotility with dysphagia, thiamine and B12 deficiency, depression, cirrhosis, bilateral kidney stones, and history of right pneumonectomy who presented with 1 day of cough, shortness of breath, and dyspnea and he was admitted for left lower lobe pneumonia COVID-positive. Acute hypoxic respiratory failure 2/2 Covid pneumonia and Serratia PNA Covid positive: 04/03/2021 First day of symptoms: 04/02/2021 Vaccination status: COVID vaccinated CTA: No evidence of acute PE. Consolidation in the base of the left lower lobe, severe left lung central lobar emphysema. Stable right pneumonectomy. Trace left pleural effusion. - Hx of R pneumonectomy, 2/2 large cell lung cancer due to smoking. CRP: 1.41 and then came down to normal Continue dexamethasone x10-day course after discharge Remdesivir: completed 5 day course Baricitinib: Not indicated continue supplemental O2-SUAZO is improving. SHe did a 2 step walk test and needs only 2LNC at rest and with exertion -continue on flutter valve to mobilize secretions after discharge (2) Secondary bacterial pneumonia: History of pseudomonal pneumonia, started on Cefepime empirically on admission Sputum cx here with Serratia -Completed 7-day course of cefepime Blood cultures no growth Improving Continue pulmonary toilet as above -Plan for repeat chest imaging in 4 to 6 weeks to assess for resolution (3) Muscle spasm: with ongoing MSK pain in entire torso for the entire admission, then with severe muscle cramping in chest and back with any movement or touch on 04/11 Likely from low magnesium levels and possibly from hypoxia when tried to wean off O2 Also with excessive use of resp muscles over many days -trial ativan po x 1 helped tremendously and also replaced Magnesium -use heating pad -will send home with ativan prn muscle spasm for short term use continue magnesium replacement (4) COPD exacerbation: Acute COPD with exacerbation, in setting of pneumonia completed azithromycin 500 mg IV daily x3 days Continue albuterol nebulizers as needed/DuoNebs , restart home Breo Ellipta and Spirva on discharge Continue dexamethasone to finsh out 10 day course on discharge (5) Hypoxia: See above will do 2 step walk test prior to discharge (6) History of pneumonectomy: See above (7) SIADH (syndrome of inappropriate ADH production): Sodium 124 upon admission Sodium improved now to 137, salt tabs have since been discontinued Follow serial BMP Likely aggravated secondary to COVID-19 infection fluid restriction not needed as she barely drinks fluid to begin with (8) Protein calorie malnutrition: Chronic issue secondary to primary lung problems (9) Depression: Continue mirtazapine (10) Hypokalemia: Fairly severe and with severe hypomagnesemia Now resolved with replacement of K and mag follow BMP, Mag in 1 week with PCP (11) Hypomagnesemia: Severe, now improved with replacement several days in a row but remains low at 1.4 give another 3 grams of IV magnesium today start magnesium oxide 250mg po daily on discharge follow magnesium level as an outpt in 1 week with PCP (12) Oral candidiasis: Secondary to steroid use Improving with nystatin Continue nystatin swish and swallow 5 mL p.o. 4 times daily x10-day course CODE STATUS:DNR/DNI DVT prophylaxis: Lovenox 40mg once daily Disposition: dc to home with 2LNC continuously of O2 Total Time Total Time Spent Total Time Spent (In Minutes): 35 min Discharge Plan Discharge Items Patient Disposition: Home - Self-Care Reason For Visit: COVID-19, RLL BACTERIAL PNEUMONIA WITH HYPOXIA Discharge Diagnosis: COVID-19, Acute on chronic respiratory failure with hypoxia, Bacterial pneumonia, hypomagnesemia, oral thrush Condition on Discharge: Fair Activity: As commented below Lifting: Gradually increase as tolerated Bathing: No limitations Exercise/Sports: Gradually increase as tolerated Driving/Machine Use: No limitations Non-emergency contact: Primary Care Provider and Blueprint Clerk Call non-emergency contact if: you have any medication questions, your symptoms worsen, your pain is not controlled, your pain is worsening and you have a fever Follow-up/Referrals: Mark Lucero MD [Physician] - (Please follow up within 2 weeks.) Temitope Shaikh MD [Primary Care Provider] - 04/19/21 10:30 am (Your appointment will be with the [facility].) Diet: Regular Addtl Attending Provider Instructions: You were admitted with COVID-19, worsening hypoxia (low oxygen levels) and bacterial pneumonia. You also had issues with low potassium and magnesium as well as muscle spasms in your chest and back. Please finish out 2 more days of the steroid called dexamethasone for your COVID and COPD. It is very important that you continue to ABSTAIN FROM SMOKING. Continue the flutter valve and Mucinex, as well as drinking plenty of fluids to thin your mucus. You completed a course of antibiotics for your pneumonia and should have a repeat chest xray in 1 month to ensure your pneumonia has cleared. You can take the lorazepam as needed for sleep or muscle spasm, but this is meant for the short term. You should continue to take magnesium pill once daily and have your PCP repeat your magnesium levels next week. If you have worsening shortness of breath, chest pain, leg pain or swelling, or any other acute concerns, please reutnr o the hospital. Pending Studies at Discharge: No Stand-Alone Forms: My [facility] [place], Smoking Cessation Medications and DC Order Prescriptions: New nystatin 100,000 unit/mL Suspension 5 ml PO QID 7 Days Qty: 140 RF: 0 acetaminophen 325 mg Tablet 650 mg PO Q4H PRN (Reason: pain) Qty: 30 RF: 0 lorazepam 0.5 mg Tablet 0.5 mg PO BID PRN (Reason: muscle spasm or for insomnia) Qty: 10 RF: 0 benzonatate 100 mg Capsule 200 mg PO Q8H PRN (Reason: cough) Qty: 20 RF: 0 thiamine HCl (vitamin B1) 100 mg Tablet 100 mg PO QAM Qty: 30 RF: 0 dexamethasone 6 mg tablet 6 mg PO DAILY Qty: 2 RF: 0 magnesium oxide 250 mg magnesium tablet 250 mg PO DAILY Qty: 30 RF: 0 guaifenesin [Mucinex] 600 mg tablet extended release 12hr 600 mg PO BID Qty: 60 RF: 0 Continued mirtazapine 15 mg tablet 7.5 mg PO HS Qty: 30 RF: 5 albuterol sulfate [ProAir HFA] 90 mcg/actuation HFA aerosol inhaler 2 puff INH .Q4-6HRS PRN (Reason: Shortness Of Breath Or Wheezing) Qty: 18 RF: 6 albuterol sulfate 2.5 mg /3 mL (0.083 %) solution for nebulization 2.5 mg INH QID PRN (Reason: Shortness Of Breath Or Wheezing) Qty: 180 RF: 8 Spiriva with HandiHaler 18 mcg capsule, w/inhalation device 1 cap INH QDL RF: 0 Breo Ellipta 200-25 mcg/dose blister with device 1 inh inhalation QDL RF: 0 nicotine 7 mg/24 hr Patch 24 Hour 14 mg transdermal QAM Qty: 30 RF: 0 Discontinued budesonide-formoterol [Symbicort] 80-4.5 mcg/actuation HFA aerosol inhaler 2 puff inhalation QAM Qty: 10.2 RF: 3 Discharge Orders: Discharge Order (Routine); Ordered 04/12/21 Ordered By: Chiqui Rondon Admission Data Admit Date/Time: 04/03/21 03:54 Attending Provider: Chiqui Rondon Admit Provider: Kwasi Giordano Primary Care Provider: Temitope Shaikh Other Providers: Kwasi Giordano Coding Level of Care Code D/C DAY MANAGEMENT >30 MINS Diagnoses Pneumonia due to COVID-19 virus U07.1; J12.82 Secondary bacterial pneumonia J15.9 Muscle spasm M62.838 COPD exacerbation J44.1 Hypoxia R09.02 History of pneumonectomy Z98.890; Z90.2 SIADH (syndrome of inappropriate ADH production) E22.2 Protein calorie malnutrition E46 Depression F32.9 Hypokalemia E87.6 Hypomagnesemia E83.42 Oral candidiasis B37.0
[2021-04-12] MEDS: ACETAMINOPHEN 325 MG TAB PO PRN (14:22)
--- NOTE | 2021-04-12 18:26 | Hospitalist Progress Note ---
Date of Service April 12, 2021 Assessment & Plan (1) Pneumonia due to COVID-19 virus: Plan: This patient is a 65-year-old female with a past medical history of severe COPD, chronic respiratory failure with hypoxia on 4LNC, SIADH, malnutrition, esophageal dysmotility with dysphagia, thiamine and B12 deficiency, depression, cirrhosis, bilateral kidney stones, and history of right pneumonectomy who presented with 1 day of cough, shortness of breath, and dyspnea and he was admitted for left lower lobe pneumonia COVID-positive. Acute hypoxic respiratory failure 2/2 Covid pneumonia and Serratia PNA Covid positive: 04/03/2021 First day of symptoms: 04/02/2021 Vaccination status: COVID vaccinated CTA: No evidence of acute PE. Consolidation in the base of the left lower lobe, severe left lung central lobar emphysema. Stable right pneumonectomy. Trace left pleural effusion. - Hx of R pneumonectomy, 2/2 large cell lung cancer due to smoking. CRP: 1.41 and then came down to normal Continue dexamethasone x10-day course after discharge Remdesivir: completed 5 day course Baricitinib: Not indicated continue supplemental O2-SUAZO is improving. SHe did a 2 step walk test and needs only 2LNC at rest and with exertion -continue on flutter valve to mobilize secretions after discharge (2) Secondary bacterial pneumonia: Plan: History of pseudomonal pneumonia, started on Cefepime empirically on admission Sputum cx here with Serratia -Completed 7-day course of cefepime Blood cultures no growth Improving Continue pulmonary toilet as above -Plan for repeat chest imaging in 4 to 6 weeks to assess for resolution (3) Muscle spasm: Plan: with ongoing MSK pain in entire torso for the entire admission, then with severe muscle cramping in chest and back with any movement or touch on 04/11 Likely from low magnesium levels and possibly from hypoxia when tried to wean off O2 Also with excessive use of resp muscles over many days -trial ativan po x 1 helped tremendously and also replaced Magnesium -use heating pad -will send home with ativan prn muscle spasm for short term use continue magnesium replacement (4) COPD exacerbation: Plan: Acute COPD with exacerbation, in setting of pneumonia completed azithromycin 500 mg IV daily x3 days Continue albuterol nebulizers as needed/DuoNebs , restart home Breo Ellipta and Spirva on discharge Continue dexamethasone to finsh out 10 day course on discharge (5) Hypoxia: Plan: See above will do 2 step walk test prior to discharge (6) History of pneumonectomy: Plan: See above (7) SIADH (syndrome of inappropriate ADH production): Plan: Sodium 124 upon admission Sodium improved now to 137, salt tabs have since been discontinued Follow serial BMP Likely aggravated secondary to COVID-19 infection fluid restriction not needed as she barely drinks fluid to begin with (8) Protein calorie malnutrition: Plan: Chronic issue secondary to primary lung problems (9) Depression: Plan: Continue mirtazapine (10) Hypokalemia: Plan: Fairly severe and with severe hypomagnesemia Now resolved with replacement of K and mag follow BMP, Mag in 1 week with PCP (11) Hypomagnesemia: Plan: Severe, now improved with replacement several days in a row but remains low at 1.4 give another 3 grams of IV magnesium today start magnesium oxide 250mg po daily on discharge follow magnesium level as an outpt in 1 week with PCP (12) Oral candidiasis: Plan: Secondary to steroid use Improving with nystatin Continue nystatin swish and swallow 5 mL p.o. 4 times daily x10-day course Plan: CODE STATUS:DNR/DNI DVT prophylaxis: Lovenox 40mg once daily Disposition: dc to home with 2LNC continuously of O2 likely tomorrow, will keep another night and make sure she feels more ready for discharge tomorrow Admission and Anticipated Discharge Date Admission Date: April 03, 2021 Subjective Patient was feeling better, had pain all over her torso but the muscle spasms from yesterday were resolved. She feels ready for discharge. However when she went to get in her car at the time of discharge, she got anxious and felt like she was too short of breath to go home and came back up to her room. Discharge was canceled Review of Systems Review of Systems: All systems reviewed & are unremarkable except as noted in HPI & below Physical Exam Constitutional: + cachectic and + underweight Eyes: + anicteric sclerae Neck: trachea midline, no thyromegaly Respiratory: normal respiratory effort Auscultation: + diminished lung sounds (throughout, but improved from yesterday) and + rhonchi (coarse upper airway sounds); no crackles and no wheezes Cardiovascular: RRR, no murmur, no edema Chest (Breasts): Chest: normal inspection of chest Gastrointestinal (Abdomen): normal bowel sounds, soft, nontender, no hepatosplenomegaly Musculoskeletal: Extremities: extremities normal to inspection; no cyanosis and no clubbing Skin: no rashes, warm and dry Neurologic: moves all extremities and awake; no focal motor deficits Psychiatric: A+Ox3, euthymic affect Lymphatic: no lymphedema Results & Data Results & Data ([facility]) Vital Signs (Past 12 Hours) Vital Signs Temp Pulse Pulse Pulse Pulse Pulse Resp 04/12/21 16:45 36.8 C 106 H 20 04/12/21 15:10 36.8 C 106 H 20 04/12/21 14:40 89 20 04/12/21 10:11 111 H 20 04/12/21 09:58 105 H 115 H 113 H 103 H 04/12/21 07:35 36.8 C 84 20 04/12/21 07:11 79 18 Resp BP BP Pulse Ox Pulse Ox Pulse Ox Pulse Ox 04/12/21 16:45 134/67 156/69 H 94 04/12/21 15:10 156/69 H 94 04/12/21 14:40 94 04/12/21 10:11 95 04/12/21 09:58 18 96 90 93 04/12/21 07:35 134/67 98 04/12/21 07:11 98 Pulse Ox 04/12/21 16:45 04/12/21 15:10 04/12/21 14:40 04/12/21 10:11 04/12/21 09:58 85 L 04/12/21 07:35 04/12/21 07:11 Laboratory Results 04/12/21 Range/Units 05:36 Sodium 137 (136-145) mmol/L Potassium 3.9 (3.5-5.1) mmol/L Chloride 96 L (98-107) mmol/L Carbon Dioxide 40 H (21-32) mmol/L Anion Gap 1 L (3-11) BUN 13 (6-23) mg/dl Creatinine 0.46 L (0.6-1.2) mg/dl Est Cr Clr Drug Dosing 81.7 ml/min Est GFR ( Amer) 120.1 ml/min Est GFR (Non-Af Amer) 103.7 ml/min BUN/Creatinine Ratio 28.3 H (10-20) Glucose 72 (70-99(Fasting)) mg/dl Calcium 8.4 L (8.5-10.1) mg/dl Phosphorus 3.4 (2.5-4.9) mg/dl Magnesium 1.4 L (1.7-2.4) mg/dl PG Care Time/CCT Total # of Minutes Spent Total Time Spent with Patient: Total time spent is greater than 50% in coordination of care (as documented) at patient's floor/unit and/or counseling patient: Coding Level of Care Code 84315 Subseq Hosp Care Lvl 2 Diagnoses Pneumonia due to COVID-19 virus U07.1; J12.82 Secondary bacterial pneumonia J15.9 Muscle spasm M62.838 COPD exacerbation J44.1 Hypoxia R09.02 History of pneumonectomy Z98.890; Z90.2 SIADH (syndrome of inappropriate ADH production) E22.2 Protein calorie malnutrition E46 Depression F32.9 Hypokalemia E87.6 Hypomagnesemia E83.42 Oral candidiasis B37.0
[2021-04-12] MEDS: MIRTAZAPINE TAB 15 MG TAB PO SCH (20:10)
[2021-04-12] MEDS: LORazepam 0.5 MG TAB PO PRN (20:17)
[2021-04-13] MEDS: ACETAMINOPHEN 325 MG TAB PO PRN ×4 (03:11→21:43)
[2021-04-13] MEDS: COUGH DROP (SUGAR FREE) LOZ 24 LOZ/1 BOX BUCCAL PRN (03:11)
[2021-04-13 07:23] LABS: BUN Creatinine Ratio 30.6 (10-20); Calcium 8.3 mg/dl (8.5-10.1); Creatinine Clr Calc Pharmacy 76.7 ml/min; Est GFR (African American) 117.7 ml/min; Est GFR (Non-African American) 101.5 ml/min; Magnesium 1.6 mg/dl (1.7-2.4); Potassium 4.3 mmol/L (3.5-5.1)
[2021-04-13] MEDS: FORMOTEROL 20 MCG/2 ML VIAL NEB SCH ×2 (07:24→20:09)
[2021-04-13] MEDS: BUDESONIDE 0.5 MG/2 ML VIAL (PULMICORT) NEB SCH ×2 (07:24→20:09)
[2021-04-13] MEDS: ALBUTEROL HFA 8 GM INHALER INH SCH ×4 (07:25→20:09)
[2021-04-13] MEDS ORDERED: dexAMETHasone 4 MG TAB PO SCH (09:00)
[2021-04-13] MEDS: THIAMINE HCL 100 MG TAB PO SCH (09:36)
[2021-04-13] MEDS: FAMOTIDINE 20 MG TAB PO SCH ×2 (09:36→21:43)
[2021-04-13] MEDS: ADVANCED PROBIOTIC 1250 MG CAPSULE PO SCH (09:36)
[2021-04-13] MEDS: ENOXAPARIN INJ 40 MG/0.4 ML SYR SQ SCH (09:36)
[2021-04-13] MEDS: NICOTINE 14 MG/24 HR PATCH TD SCH (09:36)
[2021-04-13] MEDS: NYSTATIN SUSP 500,000 U/5 ML UDC PO SCH ×4 (09:36→21:42)
[2021-04-13] MEDS: BENZONATATE 100 MG CAPSULE PO PRN ×2 (09:50→23:33)
--- NOTE | 2021-04-13 11:46 | Hospitalist Progress Note ---
Date of Service April 13, 2021 Assessment & Plan (1) Pneumonia due to COVID-19 virus: Plan: This patient is a 65-year-old female with a past medical history of severe COPD, chronic respiratory failure with hypoxia on 4LNC, SIADH, malnutrition, esophageal dysmotility with dysphagia, thiamine and B12 deficiency, depression, cirrhosis, bilateral kidney stones, and history of right pneumonectomy who presented with 1 day of cough, shortness of breath, and dyspnea and he was admitted for left lower lobe pneumonia COVID-positive. Acute hypoxic respiratory failure 2/2 Covid pneumonia and Serratia PNA Covid positive: 04/03/2021 First day of symptoms: 04/02/2021 Vaccination status: COVID vaccinated CTA: No evidence of acute PE. Consolidation in the base of the left lower lobe, severe left lung central lobar emphysema. Stable right pneumonectomy. Trace left pleural effusion. - Hx of R pneumonectomy, 2/2 large cell lung cancer due to smoking. CRP: 1.41 and then came down to normal Continue dexamethasone x10-day course after discharge Remdesivir: completed 5 day course Baricitinib: Not indicated continue supplemental O2-SUAZO is improving. SHe did a 2 step walk test and needs only 2LNC at rest and with exertion, however she had severe SUAZO on 2L just to get from wheelchair to the car and discharge cancelled on 04/12 -may need to just increase O2 to 3-4LNC with exertion for her as she has very little reserve and feels better with higher amount of O2 -continue on flutter valve to mobilize secretions after discharge -continue budesonide, formoterol nebs bid (2) Secondary bacterial pneumonia: Plan: History of pseudomonal pneumonia, started on Cefepime empirically on admission Sputum cx here with Serratia -Completed 7-day course of cefepime Blood cultures no growth Continue pulmonary toilet as above -Plan for repeat chest imaging in 4 to 6 weeks to assess for resolution (3) Muscle spasm: Plan: with ongoing MSK pain in entire torso for the entire admission, then with severe muscle cramping in chest and back with any movement or touch on 04/11 Likely from low magnesium levels and possibly from hypoxia when tried to wean off O2 Also with excessive use of resp muscles over many days -trial ativan po x 1 helped tremendously and also replaced Magnesium -use heating pad -will send home with ativan prn muscle spasm for short term use continue magnesium replacement (4) COPD exacerbation: Plan: Acute COPD with exacerbation, in setting of pneumonia completed azithromycin 500 mg IV daily x3 days Continue albuterol nebulizers as needed/DuoNebs , restart home Breo Ellipta and Spirva on discharge Continue dexamethasone to finish out 10 day course -last day today (5) Hypoxia: Plan: See above 2 step walk test showed 2LNC continuously, but she typically is on 4L at home and prefers 4L with exertion (6) History of pneumonectomy: Plan: See above (7) SIADH (syndrome of inappropriate ADH production): Plan: Sodium 124 upon admission Sodium improved now to 135, salt tabs have since been discontinued Follow serial BMP Likely aggravated secondary to COVID-19 infection fluid restriction not needed as she barely drinks fluid to begin with (8) Protein calorie malnutrition: Plan: Chronic issue secondary to primary lung problems (9) Depression: Plan: Continue mirtazapine (10) Hypokalemia: Plan: Fairly severe and with severe hypomagnesemia Now resolved with replacement of K and mag follow BMP, Mag in 1 week with PCP (11) Hypomagnesemia: Plan: Severe, now improved with replacement several days in a row but remains low at 1.6 give another 2 grams of IV magnesium today start magnesium oxide 250mg po daily on discharge follow magnesium level as an outpt in 1 week with PCP (12) Oral candidiasis: Plan: Secondary to steroid use Improving with nystatin Continue nystatin swish and swallow 5 mL p.o. 4 times daily x10-day course (13) Diarrhea: Plan: twice so far on 04/13 did have Cefepime x 7 days check C. diff Plan: CODE STATUS:DNR/DNI DVT prophylaxis: Lovenox 40mg once daily Disposition: still does not feel ready for discharge on 04/13, will keep another night and make sure she feels more ready for discharge tomorrow Admission and Anticipated Discharge Date Admission Date: April 03, 2021 Subjective Pt feels poorly still. Still with SUAZO and feels she needs higher amount of O2 with exertion than what she tested on her two step yesterday (2L) ALso has c/o loose stools x 2 today, no abd pain. Is anxious Review of Systems Review of Systems: All systems reviewed & are unremarkable except as noted in HPI & below Physical Exam Constitutional: + cachectic and + underweight Eyes: + anicteric sclerae ENMT: Mouth: + oral mucosal abnormality (No further white exudate, but appears mildly erythematous throughout) Neck: trachea midline, no thyromegaly Respiratory: normal respiratory effort Auscultation: + diminished lung sounds (throughout, but improved from yesterday) and + rhonchi (coarse upper airway sounds); no crackles and no wheezes Cardiovascular: RRR, no murmur, no edema Chest (Breasts): Chest: normal inspection of chest Gastrointestinal (Abdomen): normal bowel sounds, soft, nontender, no hepatosplenomegaly Musculoskeletal: Extremities: extremities normal to inspection; no cyanosis and no clubbing Skin: no rashes, warm and dry Neurologic: moves all extremities and awake; no focal motor deficits Psychiatric: Orientation: alert and oriented x 3 Lymphatic: no lymphedema Results & Data Results & Data ([facility]) Vital Signs (Past 12 Hours) Vital Signs Temp Pulse Resp BP Pulse Ox 04/13/21 10:19 18 96 04/13/21 08:12 36.8 C 90 20 143/71 H 98 04/13/21 07:28 90 16 98 Laboratory Results 04/13/21 Range/Units 06:40 Sodium 135 L (136-145) mmol/L Potassium 4.3 (3.5-5.1) mmol/L Chloride 96 L (98-107) mmol/L Carbon Dioxide 35 H (21-32) mmol/L Anion Gap 4 (3-11) BUN 15 (6-23) mg/dl Creatinine 0.49 L (0.6-1.2) mg/dl Est Cr Clr Drug Dosing 76.7 ml/min Est GFR ( Amer) 117.7 ml/min Est GFR (Non-Af Amer) 101.5 ml/min BUN/Creatinine Ratio 30.6 H (10-20) Glucose 74 (70-99(Fasting)) mg/dl Calcium 8.3 L (8.5-10.1) mg/dl Magnesium 1.6 L (1.7-2.4) mg/dl PG Care Time/CCT Total # of Minutes Spent Total Time Spent with Patient: Total time spent is greater than 50% in coordination of care (as documented) at patient's floor/unit and/or counseling patient: Coding Level of Care Code 62618 Subseq Hosp Care Lvl 2 Diagnoses Pneumonia due to COVID-19 virus U07.1; J12.82 Secondary bacterial pneumonia J15.9 Muscle spasm M62.838 COPD exacerbation J44.1 Hypoxia R09.02 History of pneumonectomy Z98.890; Z90.2 SIADH (syndrome of inappropriate ADH production) E22.2 Protein calorie malnutrition E46 Depression F32.9 Hypokalemia E87.6 Hypomagnesemia E83.42 Oral candidiasis B37.0 Diarrhea R19.7
[2021-04-13] MEDS: UMECLIDINIUM BROMIDE 62.5MCG/BLISTER 7 PUFFS/INHALER INH SCH (13:04)
[2021-04-13] MEDS: MAGNESIUM SULFATE / D5W 1 GM/100 ML BAG IV SCH ×2 (13:06→15:33)
[2021-04-13] MEDS: MIRTAZAPINE TAB 15 MG TAB PO SCH (21:41)
[2021-04-13] MEDS: LORazepam 0.5 MG TAB PO PRN (23:34)
[2021-04-14] MEDS: ACETAMINOPHEN 325 MG TAB PO PRN ×4 (05:40→21:09)
[2021-04-14 06:43] LABS: Hematocrit (blood only) 30.5 % (37-47); Hemoglobin 9.8 g/dL (12.0-16.0); Immature Granulocytes # (auto) 0.12 K/uL (0.00-0.02); Lymphocytes # (auto) 0.73 K/uL (1.2-3.4); Lymphocytes % (auto) 6.4 %; Mean Corpuscular Hemoglobin 31.2 pg (25-34); Mean Corpuscular Hgb Conc 32.1 g/dL (32-36); Mean Corpuscular Volume 97.1 fL (80-100); Mean Platelet Volume 9.4 fL (7.4-10.4); Monocytes # (auto) 0.74 K/uL (0.11-0.59); Monocytes % (auto) 6.4 %; Neutrophils # (auto) 9.89 K/uL (1.4-6.5); Neutrophils % (auto) 86.2 %; Platelet Count 209 K/uL (130-400); RDW Coefficient of Variation 14.2 % (11.5-14.5); RDW Standard Deviation 50.5 fL (36.4-46.3); Red Blood Count 3.14 M/uL (4.2-5.4); White Blood Count 11.48 K/uL (4.8-10.8)
[2021-04-14 07:14] LABS: BUN Creatinine Ratio 31.9 (10-20); Calcium 8.5 mg/dl (8.5-10.1); Creatinine Clr Calc Pharmacy 79.9 ml/min; Est GFR (African American) 119.3 ml/min; Est GFR (Non-African American) 102.9 ml/min; Magnesium 1.5 mg/dl (1.7-2.4); Phosphorus 3.5 mg/dl (2.5-4.9); Potassium 4.1 mmol/L (3.5-5.1)
[2021-04-14] MEDS: ALBUTEROL HFA 8 GM INHALER INH SCH ×4 (07:14→19:42)
[2021-04-14] MEDS: BUDESONIDE 0.5 MG/2 ML VIAL (PULMICORT) NEB SCH ×2 (07:14→19:42)
[2021-04-14] MEDS: FORMOTEROL 20 MCG/2 ML VIAL NEB SCH ×2 (07:14→19:42)
[2021-04-14] MEDS: MAGNESIUM SULFATE / D5W 1 GM/100 ML BAG IV SCH ×2 (09:29→12:28)
[2021-04-14] MEDS: NICOTINE 14 MG/24 HR PATCH TD SCH (10:13)
[2021-04-14] MEDS: FAMOTIDINE 20 MG TAB PO SCH ×2 (10:13→21:11)
[2021-04-14] MEDS: ADVANCED PROBIOTIC 1250 MG CAPSULE PO SCH (10:13)
[2021-04-14] MEDS: THIAMINE HCL 100 MG TAB PO SCH (10:14)
[2021-04-14] MEDS: ENOXAPARIN INJ 40 MG/0.4 ML SYR SQ SCH (10:15)
[2021-04-14] MEDS: NYSTATIN SUSP 500,000 U/5 ML UDC PO SCH ×4 (10:15→21:12)
--- NOTE | 2021-04-14 10:15 | Discharge Summary ---
Date of Service April 14, 2021 Admission HPI Per Admitting Provider The patient is a 65-year-old female with a past medical history including COPD exacerbation, SIADH, protein calorie malnutrition, esophageal dysmotility, dysphagia, thiamine deficiency, B12 deficiency, depression, liver cirrhosis, dilation of thoracic aorta, chronic reflux esophagitis, COPD, bilateral kidney stones, history of total right pneumonectomy. She began with rapidly worsening symptoms of productive cough, shortness of breath, dyspnea exertion and generalized fatigue since yesterday. At rest patient is mildly short of breath, but with minimal movement becomes extremely short of breath. CT angiography chest PE protocol: Negative for PE. Left lower lobe consolidation. Total right pneumonectomy stable Significant laboratories: Sodium 124. COVID-19 testing positive. Influenza A and B negative. RSV negative. Principal Diagnosis COVID 19 pneumonia Bacterial pneumonia COPD exacerbation Discharge Data Allergies Allergy/AdvReac Type Severity Reaction Status Date / Time aspirin Allergy Severe SEVERE Verified 04/02/21 22:09 STOMACH CRAMPING sulfamethoxazole Allergy Severe TONGUE Verified 04/02/21 22:09 SWELLING trimethoprim Allergy Severe TONGUE Verified 04/02/21 22:09 SWELLING Penicillins Allergy Unknown Unknown Verified 04/02/21 22:09 Consultations 04/03/21 02:40 ED Decision to Admit Stat Ordered Studies 04/02/21 23:09 CT angio chest PE protocol Urgent Hospital Course (1) Pneumonia due to COVID-19 virus: This patient is a 65-year-old female with a past medical history of severe COPD, chronic respiratory failure with hypoxia on 4LNC, SIADH, malnutrition, esophageal dysmotility with dysphagia, thiamine and B12 deficiency, depression, cirrhosis, bilateral kidney stones, and history of right pneumonectomy who presented with 1 day of cough, shortness of breath, and dyspnea and he was admitted for left lower lobe pneumonia COVID-positive. Acute hypoxic respiratory failure 2/2 Covid pneumonia and Serratia PNA Covid positive: 04/03/2021 First day of symptoms: 04/02/2021 Vaccination status: COVID vaccinated CTA: No evidence of acute PE. Consolidation in the base of the left lower lobe, severe left lung central lobar emphysema. Stable right pneumonectomy. Trace left pleural effusion. - Hx of R pneumonectomy, 2/2 large cell lung cancer due to smoking. CRP: 1.41 and then came down to normal Continue dexamethasone x10-day course after discharge Remdesivir: completed 5 day course Baricitinib: Not indicated continue supplemental O2-SUAZO is improving. SHe did a 2 step walk test and needs only 2LNC at rest and with exertion, however she had severe SUAZO on 2L just to get from wheelchair to the car and discharge cancelled on 04/12 -may need to just increase O2 to 3-4LNC with exertion for her as she has very little reserve and feels better with higher amount of O2 -continue on flutter valve to mobilize secretions after discharge -continue budesonide, formoterol nebs bid (2) Secondary bacterial pneumonia: History of pseudomonal pneumonia, started on Cefepime empirically on admission Sputum cx here with Serratia -Completed 7-day course of cefepime Blood cultures no growth Continue pulmonary toilet as above -Plan for repeat chest imaging in 4 to 6 weeks to assess for resolution (3) Muscle spasm: with ongoing MSK pain in entire torso for the entire admission, then with severe muscle cramping in chest and back with any movement or touch on 04/11 Likely from low magnesium levels and possibly from hypoxia when tried to wean off O2 Also with excessive use of resp muscles over many days -trial ativan po x 1 helped tremendously and also replaced Magnesium -use heating pad -will send home with ativan prn muscle spasm for short term use continue magnesium replacement (4) COPD exacerbation: Acute COPD with exacerbation, in setting of pneumonia completed azithromycin 500 mg IV daily x3 days Continue albuterol nebulizers as needed/DuoNebs , restart home Breo Ellipta and Spirva on discharge Continue dexamethasone to finish out 10 day course -last day today (5) Hypoxia: See above 2 step walk test showed 2LNC continuously, but she typically is on 4L at home and prefers 4L with exertion (6) History of pneumonectomy: See above (7) SIADH (syndrome of inappropriate ADH production): Sodium 124 upon admission Sodium improved now to 135, salt tabs have since been discontinued Follow serial BMP Likely aggravated secondary to COVID-19 infection fluid restriction not needed as she barely drinks fluid to begin with (8) Protein calorie malnutrition: Chronic issue secondary to primary lung problems (9) Depression: Continue mirtazapine (10) Hypokalemia: Fairly severe and with severe hypomagnesemia Now resolved with replacement of K and mag follow BMP, Mag in 1 week with PCP (11) Hypomagnesemia: Severe, now improved with replacement several days in a row but remains low at 1.6 give another 2 grams of IV magnesium today start magnesium oxide 250mg po daily on discharge follow magnesium level as an outpt in 1 week with PCP (12) Oral candidiasis: Secondary to steroid use Improving with nystatin Continue nystatin swish and swallow 5 mL p.o. 4 times daily x10-day course (13) Diarrhea: twice so far on 04/13 did have Cefepime x 7 days check C. diff CODE STATUS:DNR/DNI DVT prophylaxis: Lovenox 40mg once daily Disposition: still does not feel ready for discharge on 04/13, will keep another night and make sure she feels more ready for discharge tomorrow Discharge Plan Discharge Items Patient Disposition: Home - Self-Care Reason For Visit: COVID-19, RLL BACTERIAL PNEUMONIA WITH HYPOXIA Discharge Diagnosis: COVID-19, Acute on chronic respiratory failure with hypoxia, Bacterial pneumonia, hypomagnesemia, oral thrush Condition on Discharge: Good Goals: improve strength and mobility Activity: As commented below Lifting: Gradually increase as tolerated Bathing: No limitations Exercise/Sports: Gradually increase as tolerated Driving/Machine Use: No limitations Non-emergency contact: Primary Care Provider and Event Operations Manager Call non-emergency contact if: you have any medication questions, your symptoms worsen, your pain is not controlled, your pain is worsening and you have a fever Follow-up/Referrals: Mark Lucero MD [Physician] - (Please follow up within 2 weeks.) Temitope Shaikh MD [Primary Care Provider] - 04/19/21 10:30 am (Your appointment will be with the EDGE BANDER OPERATOR.) Diet: Regular Addtl Attending Provider Instructions: You were admitted with COVID-19, worsening hypoxia (low oxygen levels) and bacterial pneumonia. You also had issues with low potassium and magnesium as well as muscle spasms in your chest and back. Please finish out 2 more days of the steroid called dexamethasone for your COVID and COPD. It is very important that you continue to ABSTAIN FROM SMOKING. Continue the flutter valve and Mucinex, as well as drinking plenty of fluids to thin your mucus. You completed a course of antibiotics for your pneumonia and should have a repeat chest xray in 1 month to ensure your pneumonia has cleared. You can take the lorazepam as needed for sleep or muscle spasm, but this is meant for the short term. You should continue to take magnesium pill once daily and have your PCP repeat your magnesium levels next week. If you have worsening shortness of breath, chest pain, leg pain or swelling, or any other acute concerns, please reutnr o the hospital. Pending Studies at Discharge: No Stand-Alone Forms: My [facility] [place], Smoking Cessation Medications and DC Order Prescriptions: New nystatin 100,000 unit/mL Suspension 5 ml PO QID 7 Days Qty: 140 RF: 0 acetaminophen 325 mg Tablet 650 mg PO Q4H PRN (Reason: pain) Qty: 30 RF: 0 lorazepam 0.5 mg Tablet 0.5 mg PO BID PRN (Reason: muscle spasm or for insomnia) Qty: 10 RF: 0 benzonatate 100 mg Capsule 200 mg PO Q8H PRN (Reason: cough) Qty: 20 RF: 0 thiamine HCl (vitamin B1) 100 mg Tablet 100 mg PO QAM Qty: 30 RF: 0 dexamethasone 6 mg tablet 6 mg PO DAILY Qty: 2 RF: 0 magnesium oxide 250 mg magnesium tablet 250 mg PO DAILY Qty: 30 RF: 0 guaifenesin [Mucinex] 600 mg tablet extended release 12hr 600 mg PO BID Qty: 60 RF: 0 Continued mirtazapine 15 mg tablet 7.5 mg PO HS Qty: 30 RF: 5 albuterol sulfate [ProAir HFA] 90 mcg/actuation HFA aerosol inhaler 2 puff INH .Q4-6HRS PRN (Reason: Shortness Of Breath Or Wheezing) Qty: 18 RF: 6 albuterol sulfate 2.5 mg /3 mL (0.083 %) solution for nebulization 2.5 mg INH QID PRN (Reason: Shortness Of Breath Or Wheezing) Qty: 180 RF: 8 Spiriva with HandiHaler 18 mcg capsule, w/inhalation device 1 cap INH QDL RF: 0 Breo Ellipta 200-25 mcg/dose blister with device 1 inh inhalation QDL RF: 0 nicotine 7 mg/24 hr Patch 24 Hour 14 mg transdermal QAM Qty: 30 RF: 0 Discontinued budesonide-formoterol [Symbicort] 80-4.5 mcg/actuation HFA aerosol inhaler 2 puff inhalation QAM Qty: 10.2 RF: 3 Discharge Orders: Discharge Order (Routine); Ordered 04/14/21 Ordered By: Jamie Wilhelm Admission Data Admit Date/Time: 04/03/21 03:54 Attending Provider: Jamie Wilhelm Admit Provider: Kwasi Giordano Primary Care Provider: Temitope Shaikh Other Providers: Kwasi Giordano Other Interventions: Discharge Summary Assessment (RN) Last Done: 04/12/21 16:45 Coding Diagnoses Pneumonia due to COVID-19 virus U07.1; J12.82 Secondary bacterial pneumonia J15.9 Muscle spasm M62.838 COPD exacerbation J44.1 Hypoxia R09.02 History of pneumonectomy Z98.890; Z90.2 SIADH (syndrome of inappropriate ADH production) E22.2 Protein calorie malnutrition E46 Depression F32.9 Hypokalemia E87.6 Hypomagnesemia E83.42 Oral candidiasis B37.0 Diarrhea R19.7
[2021-04-14] MEDS: UMECLIDINIUM BROMIDE 62.5MCG/BLISTER 7 PUFFS/INHALER INH SCH (12:28)
--- NOTE | 2021-04-14 12:51 | Hospitalist Progress Note ---
Date of Service April 14, 2021 Assessment & Plan (1) Pneumonia due to COVID-19 virus: Plan: This patient is a 65-year-old female with a past medical history of severe COPD, chronic respiratory failure with hypoxia on 4LNC, SIADH, malnutrition, esophageal dysmotility with dysphagia, thiamine and B12 deficiency, depression, cirrhosis, bilateral kidney stones, and history of right pneumonectomy who presented with 1 day of cough, shortness of breath, and dyspnea and he was admitted for left lower lobe pneumonia COVID-positive. Acute hypoxic respiratory failure 2/2 Covid pneumonia and Serratia PNA Covid positive: 04/03/2021 First day of symptoms: 04/02/2021 Vaccination status: COVID vaccinated CTA: No evidence of acute PE. Consolidation in the base of the left lower lobe, severe left lung central lobar emphysema. Stable right pneumonectomy. Trace left pleural effusion. - Hx of R pneumonectomy, 2/2 large cell lung cancer due to smoking. CRP: 1.41 and then came down to normal dexamethasone x10-day course Remdesivir: completed 5 day course Baricitinib: Not indicated continue supplemental O2-SUAZO is improving. SHe did a 2 step walk test and needs only 2LNC at rest and with exertion, however she had severe SUAZO on 2L just to get from wheelchair to the car and discharge cancelled on 04/12 doing better, ready for discharge but family cannot take her until tomorrow completed course of dexamethasone and antibiotics (2) Secondary bacterial pneumonia: Plan: History of pseudomonal pneumonia, started on Cefepime empirically on admission Sputum cx here with Serratia -Completed 7-day course of cefepime Blood cultures no growth Continue pulmonary toilet as above -Plan for repeat chest imaging in 4 to 6 weeks to assess for resolution (3) Muscle spasm: Plan: with ongoing MSK pain in entire torso for the entire admission, then with severe muscle cramping in chest and back with any movement or touch on 04/11 Likely from low magnesium levels and possibly from hypoxia when tried to wean off O2 Also with excessive use of resp muscles over many days -trial ativan po x 1 helped tremendously and also replaced Magnesium -use heating pad -will send home with ativan prn muscle spasm for short term use continue magnesium replacement (4) COPD exacerbation: Plan: Acute COPD with exacerbation, in setting of pneumonia completed azithromycin 500 mg IV daily x3 days Continue albuterol nebulizers as needed/DuoNebs , restart home Breo Ellipta and Spirva on discharge Continue dexamethasone to finish out 10 day course - done 04/13 no wheezing on exam (5) Hypoxia: Plan: See above 2 step walk test showed 2LNC continuously, but she typically is on 4L at home and prefers 4L with exertion (6) History of pneumonectomy: Plan: See above (7) SIADH (syndrome of inappropriate ADH production): Plan: Sodium 124 upon admission Sodium improved now to 135, salt tabs have since been discontinued Follow serial BMP Likely aggravated secondary to COVID-19 infection fluid restriction not needed as she barely drinks fluid to begin with (8) Protein calorie malnutrition: Plan: Chronic issue secondary to primary lung problems (9) Depression: Plan: Continue mirtazapine (10) Hypokalemia: Plan: Fairly severe and with severe hypomagnesemia Now resolved with replacement of K and mag follow BMP, Mag in 1 week with PCP (11) Hypomagnesemia: Plan: Severe, now improved with replacement several days in a row but remains low at 1.6 give another 2 grams of IV magnesium today start magnesium oxide 250mg po daily on discharge follow magnesium level as an outpt in 1 week with PCP (12) Oral candidiasis: Plan: Secondary to steroid use Improving with nystatin Continue nystatin swish and swallow 5 mL p.o. 4 times daily x10-day course (13) Diarrhea: Plan: twice so far on 04/13 did have Cefepime x 7 days check C. diff Plan: CODE STATUS:DNR/DNI DVT prophylaxis: Lovenox 40mg once daily Disposition: still does not feel ready for discharge on 04/13, will keep another night and make sure she feels more ready for discharge tomorrow Admission and Anticipated Discharge Date Admission Date: April 03, 2021 Subjective patient feeling better, breathing stable, mild cough, no sputum, no fever c/o pain in chest with deep breathing and palpation, consistent with the spasms she has been experiencing she is eating well she is ready for discharge but no family can get her today, plan for discharge tomorrow Review of Systems Review of Systems: All systems reviewed & are unremarkable except as noted in Subjective Physical Exam Physical Exam: General: well developed, thin and frail elderly female Neck: supple, trachea midline, normal thyroid Lungs: clear to auscultation on left, no breath sounds on right (pneumonectomy), normal respiratory effort, no accessory muscle use, no distress Heart: regular S1 and S2, no murmur, peripheral pulses normal, capillary refill normal, no edema Abdomen: soft, NT, ND, + BS, no hepatomegaly, normal to percussion Extremities: normal in appearance, no cyanosis, no petechiae, strength is a little diminished Neuro: awake, cooperative, moves all extremities, no focal motor deficits, CN II-XII intact, sensation in extremities intact, normal speech Skin: warm, dry, no rash, normal turgor Psych: Awake, alert oriented x 3, euthymic affect Results & Data Results & Data ([facility]) Vital Signs (Past 12 Hours) Vital Signs Temp Pulse Resp BP Pulse Ox 04/14/21 10:41 100 H 20 96 04/14/21 08:20 36.3 C L 86 20 144/68 H 98 04/14/21 07:14 84 20 98 Laboratory Results Laboratory Results - last 24 hr 04/14/21 04/14/21 05:32 05:32 WBC 11.48 H RBC 3.14 L Hgb 9.8 L Hct 30.5 L MCV 97.1 MCH 31.2 MCHC 32.1 RDW Std Deviation 50.5 H RDW Coeff of Niru 14.2 Plt Count 209 MPV 9.4 Immature Gran % (Auto) 1.0 Neut % (Auto) 86.2 Lymph % (Auto) 6.4 [place] % (Auto) 6.4 Eos % (Auto) 0.0 Baso % (Auto) 0.0 Neut # (Auto) 9.89 H Lymph # (Auto) 0.73 L [place] # (Auto) 0.74 H Eos # (Auto) 0.00 Baso # (Auto) 0.00 Immature Gran # (Auto) 0.12 H Sodium 135 L Potassium 4.1 Chloride 96 L Carbon Dioxide 33 H Anion Gap 6 BUN 15 Creatinine 0.47 L Est Cr Clr Drug Dosing 79.9 Est GFR ( Amer) 119.3 Est GFR (Non-Af Amer) 102.9 BUN/Creatinine Ratio 31.9 H Glucose 75 Calcium 8.5 Phosphorus 3.5 Magnesium 1.5 L Medications Administered Current Inpatient Medications Acetaminophen (Acetaminophen 325 Mg Tab) 650 mg PO Q4H PRN PRN Reason: Pain or Fever Stop: 05/03/21 07:00 Last Admin: 04/14/21 09:36 Dose: 650 mg Documented by: Albuterol (Albuterol Hfa 8 Gm Inhaler) 2 puffs INH QIDR TRACE Stop: 05/03/21 10:59 Last Admin: 04/14/21 10:40 Dose: 2 puffs Documented by: Albuterol (Albut/Ipratrop 3mg/0.5mg Neb 3 Ml Vial) 3 ml NEB Q2H PRN; Protocol PRN Reason: dyspnea Stop: 05/03/21 07:00 Benzonatate (Benzonatate 100 Mg Capsule) 200 mg PO Q8H PRN PRN Reason: Cough Stop: 05/05/21 02:57 Last Admin: 04/13/21 23:33 Dose: 200 mg Documented by: Budesonide (Budesonide 0.5 Mg/2 Ml Vial (Pulmicort)) 0.5 mg NEB BIDR [facility] Stop: 05/08/21 18:59 Last Admin: 04/14/21 07:14 Dose: 0.5 mg Documented by: Diclofenac Sodium (Diclofenac Sod 1% Gel 100 Gm Tube) 2 gm EXT Q8H PRN PRN Reason: rib pain Stop: 05/03/21 23:14 Last Admin: 04/07/21 07:26 Dose: 2 gm Documented by: Enoxaparin Sodium (Enoxaparin Inj 40 Mg/0.4 Ml Syr) 40 mg SQ DAILY [facility] Stop: 05/10/21 08:59 Last Admin: 04/14/21 10:15 Dose: Not Given Documented by: Famotidine (Famotidine 20 Mg Tab) 20 mg PO BID [facility] Stop: 05/07/21 20:59 Last Admin: 04/14/21 10:13 Dose: 20 mg Documented by: Formoterol Fumarate (Formoterol 20 Mcg/2 Ml Vial) 20 mcg NEB BIDR [facility] Stop: 05/08/21 18:59 Last Admin: 04/14/21 07:14 Dose: 20 mcg Documented by: Lorazepam (Lorazepam 0.5 Mg Tab) 0.5 mg PO HS PRN PRN Reason: insomnia Stop: 05/09/21 17:49 Last Admin: 04/13/21 23:34 Dose: 0.5 mg Documented by: Menthol (Cough Drop (Sugar Free) Guido 24 Guido/1 Box) 1 guido BUCCAL Q4H PRN PRN Reason: cough Stop: 05/05/21 02:58 Last Admin: 04/13/21 03:11 Dose: 1 guido Documented by: Mirtazapine (Mirtazapine Tab 15 Mg Tab) 7.5 mg PO HS [facility] Stop: 05/03/21 20:59 Last Admin: 04/13/21 21:41 Dose: 7.5 mg Documented by: Miscellaneous (Remove Nicoderm Patch) 1 ea N/A DAILY@0859 [facility] Stop: 05/03/21 08:58 Last Admin: 04/14/21 09:34 Dose: 1 ea Documented by: Nicotine (Nicotine 14 Mg/24 Hr Patch) 14 mg TD QAM [facility] Stop: 05/03/21 08:59 Last Admin: 04/14/21 10:13 Dose: 14 mg Documented by: Nystatin (Nystatin Susp 500,000 U/5 Ml Udc) 5 ml PO QID [facility] Stop: 04/19/21 14:59 Last Admin: 04/14/21 12:28 Dose: Not Given Documented by: Thiamine HCl (Thiamine Hcl 100 Mg Tab) 100 mg PO QAM [facility] Stop: 05/03/21 10:14 Last Admin: 04/14/21 10:14 Dose: 100 mg Documented by: Tizanidine HCl (Tizanidine Hcl 4 Mg Tablet) 2 mg PO Q12 PRN PRN Reason: muscle spasm Stop: 05/11/21 20:59 Last Admin: 04/12/21 07:45 Dose: 2 mg Documented by: Umeclidinium [place] (Umeclidinium [place] 62.5mcg/Blister 7 Puffs/Inhaler) 1 puffs INH QDL [facility] Stop: 05/03/21 11:29 Last Admin: 04/14/21 12:28 Dose: 1 puffs Documented by: PG Care Time/CCT Total # of Minutes Spent Total Time Spent with Patient: Total time spent is greater than 50% in coordination of care (as documented) at patient's floor/unit and/or counseling patient: Coding Level of Care Code 57572 Subseq Hosp Care Lvl 2 Diagnoses Pneumonia due to COVID-19 virus U07.1; J12.82 Secondary bacterial pneumonia J15.9 Muscle spasm M62.838 COPD exacerbation J44.1 Hypoxia R09.02 History of pneumonectomy Z98.890; Z90.2 SIADH (syndrome of inappropriate ADH production) E22.2 Protein calorie malnutrition E46 Depression F32.9 Hypokalemia E87.6 Hypomagnesemia E83.42 Oral candidiasis B37.0 Diarrhea R19.7
[2021-04-14] MEDS: BENZONATATE 100 MG CAPSULE PO PRN (21:10)
[2021-04-14] MEDS: LORazepam 0.5 MG TAB PO PRN (21:10)
[2021-04-14] MEDS: MIRTAZAPINE TAB 15 MG TAB PO SCH (21:12)
[2021-04-15] MEDS: FORMOTEROL 20 MCG/2 ML VIAL NEB SCH (07:13)
[2021-04-15] MEDS: BUDESONIDE 0.5 MG/2 ML VIAL (PULMICORT) NEB SCH (07:13)
[2021-04-15] MEDS: ALBUTEROL HFA 8 GM INHALER INH SCH (07:15)
[2021-04-15] MEDS: ADVANCED PROBIOTIC 1250 MG CAPSULE PO SCH (08:09)
[2021-04-15] MEDS: THIAMINE HCL 100 MG TAB PO SCH (08:09)
[2021-04-15] MEDS: FAMOTIDINE 20 MG TAB PO SCH (08:09)
[2021-04-15] MEDS: ENOXAPARIN INJ 40 MG/0.4 ML SYR SQ SCH (08:11)
[2021-04-15] MEDS: NYSTATIN SUSP 500,000 U/5 ML UDC PO SCH (08:11)
[2021-04-15] MEDS: NICOTINE 14 MG/24 HR PATCH TD SCH (08:11)
--- NOTE | 2021-04-15 11:46 | Discharge Summary ---
Date of Service April 15, 2021 Principal Diagnosis COVID 19 infection Pneumonia Acute on chronic hypoxic respiratory failure Discharge Exam General: well developed, thin and frail elderly female Neck: supple, trachea midline, normal thyroid Lungs: clear to auscultation on left, no breath sounds on right (pneumonectomy), normal respiratory effort, no accessory muscle use, no distress Heart: regular S1 and S2, no murmur, peripheral pulses normal, capillary refill normal, no edema Abdomen: soft, NT, ND, + BS, no hepatomegaly, normal to percussion Extremities: normal in appearance, no cyanosis, no petechiae, strength is a little diminished Neuro: awake, cooperative, moves all extremities, no focal motor deficits, CN II-XII intact, sensation in extremities intact, normal speech Skin: warm, dry, no rash, normal turgor Psych: Awake, alert oriented x 3, euthymic affect Discharge Data Allergies Allergy/AdvReac Type Severity Reaction Status Date / Time aspirin Allergy Severe SEVERE Verified 04/02/21 22:09 STOMACH CRAMPING sulfamethoxazole Allergy Severe TONGUE Verified 04/02/21 22:09 SWELLING trimethoprim Allergy Severe TONGUE Verified 04/02/21 22:09 SWELLING Penicillins Allergy Unknown Unknown Verified 04/02/21 22:09 Consultations 04/03/21 02:40 ED Decision to Admit Stat Ordered Studies 04/02/21 23:09 CT angio chest PE protocol Urgent Hospital Course (1) Pneumonia due to COVID-19 virus: This patient is a 65-year-old female with a past medical history of severe COPD, chronic respiratory failure with hypoxia on 4LNC, SIADH, malnutrition, esophageal dysmotility with dysphagia, thiamine and B12 deficiency, depression, cirrhosis, bilateral kidney stones, and history of right pneumonectomy who presented with 1 day of cough, shortness of breath, and dyspnea and he was admitted for left lower lobe pneumonia COVID-positive. Acute hypoxic respiratory failure 2/2 Covid pneumonia and Serratia PNA Covid positive: 04/03/2021 First day of symptoms: 04/02/2021 Vaccination status: COVID vaccinated CTA: No evidence of acute PE. Consolidation in the base of the left lower lobe, severe left lung central lobar emphysema. Stable right pneumonectomy. Trace left pleural effusion. - Hx of R pneumonectomy, 2/2 large cell lung cancer due to smoking. CRP: 1.41 and then came down to normal dexamethasone x10-day course Remdesivir: completed 5 day course Baricitinib: Not indicated continue supplemental O2-SUAZO is improving. SHe did a 2 step walk test and needs only 2LNC at rest and with exertion, however she had severe SUAZO on 2L just to get from wheelchair to the car and discharge cancelled on 04/12 doing better, ready for discharge today completed course of dexamethasone and antibiotics (2) Secondary bacterial pneumonia: History of pseudomonal pneumonia, started on Cefepime empirically on admission Sputum cx here with Serratia -Completed 7-day course of cefepime Blood cultures no growth Continue pulmonary toilet as above Plan for repeat chest imaging in 4 to 6 weeks to assess for resolution (3) Muscle spasm: with ongoing MSK pain in entire torso for the entire admission, then with severe muscle cramping in chest and back with any movement or touch on 04/11 Likely from low magnesium levels and possibly from hypoxia when tried to wean off O2 Also with excessive use of resp muscles over many days -trial ativan po x 1 helped tremendously and also replaced Magnesium -use heating pad -will send home with ativan prn muscle spasm for short term use continue magnesium replacement (4) COPD exacerbation: Acute COPD with exacerbation, in setting of pneumonia completed azithromycin 500 mg IV daily x3 days Continue albuterol nebulizers as needed/DuoNebs , restart home Breo Ellipta and Spirva on discharge Continue dexamethasone to finish out 10 day course - done 04/13 no wheezing on exam (5) Hypoxia: See above 2 step walk test showed 2LNC continuously, but she typically is on 4L at home and prefers 4L with exertion (6) History of pneumonectomy: See above (7) SIADH (syndrome of inappropriate ADH production): Sodium 124 upon admission Sodium improved now to 135, salt tabs have since been discontinued Follow serial BMP Likely aggravated secondary to COVID-19 infection fluid restriction not needed as she barely drinks fluid to begin with (8) Protein calorie malnutrition: Chronic issue secondary to primary lung problems (9) Depression: Continue mirtazapine (10) Hypokalemia: Fairly severe and with severe hypomagnesemia Now resolved with replacement of K and mag follow BMP, Mag in 1 week with PCP (11) Hypomagnesemia: Severe, now improved with replacement several days in a row but remains low at 1.6 give another 2 grams of IV magnesium today start magnesium oxide 250mg po daily on discharge follow magnesium level as an outpt in 1 week with PCP (12) Oral candidiasis: Secondary to steroid use Improving with nystatin Continue nystatin swish and swallow 5 mL p.o. 4 times daily x10-day course (13) Diarrhea: twice so far on 04/13 did have Cefepime x 7 days check C. diff CODE STATUS:DNR/DNI DVT prophylaxis: Lovenox 40mg once daily Disposition: d/c to home Total Time Total Time Spent Total Time Spent (In Minutes): 31 Discharge Plan Discharge Items Patient Disposition: Home - Self-Care Reason For Visit: COVID-19, RLL BACTERIAL PNEUMONIA WITH HYPOXIA Discharge Diagnosis: COVID-19, Acute on chronic respiratory failure with hypoxia, Bacterial pneumonia, hypomagnesemia, oral thrush Condition on Discharge: Good Goals: improve strength and mobility Activity: As commented below Lifting: Gradually increase as tolerated Bathing: No limitations Exercise/Sports: Gradually increase as tolerated Driving/Machine Use: No limitations Non-emergency contact: Primary Care Provider and [employer]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 LUCERO'S OFFICE FOR A FOLLOW-UP APPOINTMENT WITHIN 2 WEEKS.) Temitope Shaikh MD [Primary Care Provider] - 04/19/21 10:30 am (Your appointment will be with the [employer].) Diet: Regular Addtl Attending Provider Instructions: You were admitted with COVID-19, worsening hypoxia (low oxygen levels) and bacterial pneumonia. You also had issues with low potassium and magnesium as well as muscle spasms in your chest and back. Please finish out 2 more days of the steroid called dexamethasone for your COVID and COPD. It is very important that you continue to ABSTAIN FROM SMOKING. Continue the flutter valve and Mucinex, as well as drinking plenty of fluids to thin your mucus. You completed a course of antibiotics for your pneumonia and should have a repeat chest xray in 1 month to ensure your pneumonia has cleared. You can take the lorazepam as needed for sleep or muscle spasm, but this is meant for the short term. You should continue to take magnesium pill once daily and have your PCP repeat your magnesium levels next week. If you have worsening shortness of breath, chest pain, leg pain or swelling, or any other acute concerns, please reutnr o the hospital. Pending Studies at Discharge: No Stand-Alone Forms: [facility], Smoking Cessation Medications and DC Order Prescriptions: New nystatin 100,000 unit/mL Suspension 5 ml PO QID 7 Days Qty: 140 RF: 0 acetaminophen 325 mg Tablet 650 mg PO Q4H PRN (Reason: pain) Qty: 30 RF: 0 lorazepam 0.5 mg Tablet 0.5 mg PO BID PRN (Reason: muscle spasm or for insomnia) Qty: 10 RF: 0 benzonatate 100 mg Capsule 200 mg PO Q8H PRN (Reason: cough) Qty: 20 RF: 0 thiamine HCl (vitamin B1) 100 mg Tablet 100 mg PO QAM Qty: 30 RF: 0 dexamethasone 6 mg tablet 6 mg PO DAILY Qty: 2 RF: 0 magnesium oxide 250 mg magnesium tablet 250 mg PO DAILY Qty: 30 RF: 0 guaifenesin [Mucinex] 600 mg tablet extended release 12hr 600 mg PO BID Qty: 60 RF: 0 Continued mirtazapine 15 mg tablet 7.5 mg PO HS Qty: 30 RF: 5 albuterol sulfate [ProAir HFA] 90 mcg/actuation HFA aerosol inhaler 2 puff INH .Q4-6HRS PRN (Reason: Shortness Of Breath Or Wheezing) Qty: 18 RF: 6 albuterol sulfate 2.5 mg /3 mL (0.083 %) solution for nebulization 2.5 mg INH QID PRN (Reason: Shortness Of Breath Or Wheezing) Qty: 180 RF: 8 Spiriva with HandiHaler 18 mcg capsule, w/inhalation device 1 cap INH QDL RF: 0 Breo Ellipta 200-25 mcg/dose blister with device 1 inh inhalation QDL RF: 0 nicotine 7 mg/24 hr Patch 24 Hour 14 mg transdermal QAM Qty: 30 RF: 0 Discontinued budesonide-formoterol [Symbicort] 80-4.5 mcg/actuation HFA aerosol inhaler 2 puff inhalation QAM Qty: 10.2 RF: 3 Discharge Orders: Discharge Order (Routine); Ordered 04/14/21 Ordered By: Jamie Wilhelm Admission Data Admit Date/Time: 04/03/21 03:54 Attending Provider: Jamie Wilhelm Admit Provider: Kwasi Giordano Primary Care Provider: Temitope Shaikh Other Providers: Kwasi Giordano Other Interventions: Discharge Summary Assessment (RN) Last Done: 04/15/21 07:38 Coding Level of Care Code D/C DAY MANAGEMENT >30 MINS Diagnoses Pneumonia due to COVID-19 virus U07.1; J12.82 Secondary bacterial pneumonia J15.9 Muscle spasm M62.838 COPD exacerbation J44.1 Hypoxia R09.02 History of pneumonectomy Z98.890; Z90.2 SIADH (syndrome of inappropriate ADH production) E22.2 Protein calorie malnutrition E46 Depression F32.9 Hypokalemia E87.6 Hypomagnesemia E83.42 Oral candidiasis B37.0 Diarrhea R19.7
== END 2021-04-15 09:25 | disposition home or self-care (01) | DRG 177 ==
LOC: ED 21:45 → EDINP 04-03 03:54 → SUATTDRO 04-03 03:54 → EDINP 04-03 05:41 → 2W 04-03 18:37

== ENCOUNTER 2021-10-05 07:00 | Inpatient (IN) ==
[2021-10-05] MEDS ORDERED: ERTAPENEM SODIUM 10 ML IV STA (07:05)
[2021-10-05] MEDS ORDERED: SODIUM CHLORIDE 0.9% 1000ML 1,000 ML IV SCH (07:15)
[2021-10-05 07:50] LABS: Basophils # (auto) 0.02 K/uL (0-0.2); Basophils % (auto) 0.4 %; Hematocrit (blood only) 41.9 % (34.1-44.9); Hemoglobin 13.6 g/dl (12.0-16.0); Mean Corpuscular Hemoglobin 29.4 pg (25.0-34.0); Mean Corpuscular Hgb Conc 32.5 g/dL (32.0-36.0); Mean Corpuscular Volume 90.5 fL (80.0-100.0); Mean Platelet Volume 9.8 fL (9.4-12.3); Monocytes # (auto) 0.42 K/uL (0.24-0.82); Monocytes % (auto) 8.4 %; Neutrophils # (auto) 4.06 K/uL (1.4-6.5); Neutrophils % (auto) 81.2 %; Platelet Count 187 K/uL (130-400); RDW Coefficient of Variation 15.2 % (11.5-14.5); RDW Standard Deviation 50.9 fL (36.4-46.3); Red Blood Count 4.63 M/uL (3.93-5.22)
[2021-10-05 08:19] LABS: Alanine Aminotransferase 7 U/L (7-52); Albumin Globulin Ratio 1.3 (0.9-2); Alkaline Phosphatase 87 U/L (34-104); Anion Gap 6 (3-11); Bilirubin,Total 0.4 mg/dl (0.2-1.0); Blood Urea Nitrogen 8 mg/dl (6-23); Calcium 8.8 mg/dl (8.5-10.1); Carbon Dioxide 31 mmol/L (21-32); Chloride 92 mmol/L (98-107); Creatinine Clr Calc Pharmacy 65.8 ml/min; Est GFR (African American) 118.5 ml/min; Est GFR (Non-African American) 102.2 ml/min; Glucose 92 mg/dl (70-99(Fasting)); Magnesium 1.4 mg/dl (1.7-2.4); Sodium 129 mmol/L (136-145); Troponin I High Sensitivity 4.3 pg/ml (0-14)
--- NOTE | 2021-10-05 08:23 | XRay Report ---
XR chest 1V portable HISTORY: SEPSIS COMPARISON: Chest 03/07/2021. FINDINGS: Postoperative changes again noted within the right hemithorax consistent with prior pneumon ectomy. This accounts for the right mediastinal shift and hyperexpanded left lung. There is mild inte rstitial thickening within the left lung. Emphysema again noted. No left-sided pneumothorax or left p leural effusions. No new focal consolidations within the left lung to suggest a pneumonia. IMPRESSION: 1. No change in the right pneumonectomy changes. 2. No consolidation within the left lung to suggest a pneumonia. ACT 112: Negative or not required by law. Electronically signed by: Miguel Zhang M.D. 10/05/2021 8:22 AM
--- NOTE | 2021-10-05 08:48 | Emergency Department Note ---
History of Present Illness General Chief complaint: Weakness Stated complaint: WEAKNESS, LETHARGIC, SOB Time Seen by Provider: 10/05/21 07:03 History of Present Illness 66-year-old female presents to the ED with a chief complaint of shortness of breath. The patient states that her symptoms have gradually worsened for the past week or so. She states it is significantly worse with walking. She states that she can only walk a short distance without becoming short of breath. The patient reports a new dry cough but does have a baseline cough related to her COPD. She does continue to smoke despite using oxygen at home for her COPD. She is typically on 2 L. She also reports some mild chest tightness or p ressure. She also reports decreased appetite and some generalized weakness. She has not had a fever or any other upper respiratory symptoms. Home Medications Medication Instructions Recorded Confirmed Type albuterol sulfate 2.5 mg (3 mL) inhalation QID PRN 06/26/20 04/19/21 Rx Shortness Of Breath Or Wheezing #180 mL mirtazapine 15 mg tablet 7.5 mg PO HS #30 tabs 10/03/20 04/19/21 Rx nicotine 7 mg/24 hr daily 14 mg transdermal QAM #30 ea 01/21/21 04/19/21 Rx transdermal patch acetaminophen 325 mg tablet 650 mg PO Q4H PRN pain #30 tabs 04/12/21 04/19/21 Rx benzonatate 100 mg capsule 200 mg PO Q8H PRN cough #20 caps 04/12/21 04/19/21 Rx guaifenesin 600 mg tablet, 600 mg PO BID #60 tabs 04/12/21 04/19/21 Rx extended release 12 hr (Mucinex) magnesium oxide 250 mg PO DAILY #30 tabs 04/12/21 04/19/21 Rx thiamine HCl (vitamin B1) 100 mg 100 mg PO QAM #30 tabs 04/12/21 04/19/21 Rx tablet lorazepam 0.5 mg tablet 0.5 mg PO BID PRN muscle spasm or 04/19/21 04/19/21 Rx for insomnia #30 tabs budesonide 0.5 mg/2 mL suspension 0.5 mg (2 mL) inhalation BID #120 04/23/21 04/23/21 Rx for nebulization (Pulmicort) mL Brovana 15 mcg/2 mL solution for 2 ml inhalation BID Advanced COPD 04/24/21 Rx nebulization (arformoterol) #120 mL levofloxacin 500 mg tablet 500 mg PO DAILY #10 tabs 06/11/21 06/11/21 Rx albuterol sulfate 90 mcg/actuation 2 puff inhalation .Q4-6HRS PRN 07/31/21 Rx aerosol inhaler (ProAir HFA) Shortness Of Breath Or Wheezing #18 grams ipratropium 20 mcg-albuterol 100 1 puff inhalation Q6H #4 grams 08/30/21 Rx mcg/actuation mist for inhalation (Combivent Respimat) Allergies Allergy/AdvReac Type Severity Reaction Status Date / Time aspirin Allergy Severe SEVERE Verified 04/02/21 22:09 STOMACH CRAMPING sulfamethoxazole Allergy Severe TONGUE Verified 04/02/21 22:09 SWELLING trimethoprim Allergy Severe TONGUE Verified 04/02/21 22:09 SWELLING Penicillins Allergy Unknown Unknown Verified 04/02/21 22:09 Past Med/Surg History Medical History Abnormal CT scan, gastrointestinal tract Alcoholism B12 deficiency Bilateral kidney stones Chronic obstructive pulmonary disease Chronic reflux esophagitis Chronic respiratory failure Dilation of thoracic aorta Hypomagnesemia Influenza Leukocytosis Lung cancer Osteoporosis Palliative care encounter Pneumonia Pneumonia Protein calorie malnutrition SIADH (syndrome of inappropriate ADH production) Squamous cell carcinoma of lung Unspecified cirrhosis of liver Surgical History History of pneumonectomy S/P lobectomy of lung Family History Father Aortic aneurysm Hypertension Mother COPD (chronic obstructive pulmonary disease) CHF (congestive heart failure) Osteoporosis Renal failure Grandmother Diabetes Grandfather Skin cancer Other Myocardial infarction No pertinent family history in first degree relatives Denies family history of Ovarian cancer Prostate cancer Breast cancer Colorectal cancer Social History Smoking Status: Current every day smoker Tobacco Type: Cigarettes Cigarettes Per Day: 20; Second Hand Exposure: No; Hx Alcohol Use: No Hx Substance Use: No Preferred Language: Venezuelan Communication Ability: Effective Visual Impairment: No Limitations Print Inspector Required: No Beliefs That Will Affect Care: None marital status: Life Partner Current Living Situation: Significant Other current occupational status: disabled How many Children do You have: 3 Feels Safe at Home: Yes Dental Care, Regularly: No Physical Activity Frequency: Does not Exercise Seatbelt Use: always Sunscreen Use: No Assistive Devices: Oxygen - Continuous Review of Systems A total of 10 systems reviewed and were otherwise negative Physical Exam Vital Signs Vital Signs - 24 hr 10/05/21 07:04 10/05/21 07:05 10/05/21 07:05 Temperature 36.7 C Temperature Source Oral Pulse Rate 98 H Pulse Rate [Apical] Respiratory Rate 18 17 Respiratory Effort / Characteristics Non-Labored Spontaneous Non-Labored Spontaneous Respiratory Depth Normal Blood Pressure 115/75 Blood Pressure [Left Arm] Blood Pressure Mean 88 Blood Pressure Mean [Left Arm] Pulse Oximetry 96 97 Oxygen Delivery Method Nasal Cannula Nasal Cannula Oxygen Flow Rate 2 2 Sepsis Recent Fever Within 48 Hours No Sepsis New/Unexplained Change in Mental Status No Sepsis Action Taken by Nursing No Action Required 10/05/21 07:05 10/05/21 07:15 10/05/21 07:30 Temperature Temperature Source Pulse Rate Pulse Rate [Apical] 94 H 90 Respiratory Rate 19 12 Respiratory Effort / Characteristics Non-Labored Spontaneous Non-Labored Spontaneous Respiratory Depth Normal Normal Blood Pressure Blood Pressure [Left Arm] 107/67 109/59 L Blood Pressure Mean Blood Pressure Mean [Left Arm] 80 75 Pulse Oximetry 2 L 97 98 Oxygen Delivery Method Nasal Cannula Nasal Cannula Nasal Cannula Oxygen Flow Rate 2 2 Sepsis Recent Fever Within 48 Hours Sepsis New/Unexplained Change in Mental Status Sepsis Action Taken by Nursing 10/05/21 07:45 10/05/21 07:40 10/05/21 07:30 Temperature Temperature Source Pulse Rate Pulse Rate [Apical] 87 107 H Respiratory Rate 23 23 Respiratory Effort / Characteristics Non-Labored Spontaneous Non-Labored Spontaneous Non-Labored Spontaneous Respiratory Depth Normal Normal Blood Pressure Blood Pressure [Left Arm] 121/62 Blood Pressure Mean Blood Pressure Mean [Left Arm] 81 Pulse Oximetry 96 80 L Oxygen Delivery Method Nasal Cannula Nasal Cannula Nasal Cannula Oxygen Flow Rate 2 2 2 Sepsis Recent Fever Within 48 Hours Sepsis New/Unexplained Change in Mental Status Sepsis Action Taken by Nursing 10/05/21 08:00 10/05/21 08:00 10/05/21 08:15 Temperature Temperature Source Pulse Rate Pulse Rate [Apical] 97 H Respiratory Rate 19 20 Respiratory Effort / Characteristics Non-Labored Spontaneous Non-Labored Spontaneous Non-Labored Spontaneous Respiratory Depth Normal Normal Blood Pressure Blood Pressure [Left Arm] 126/64 100/71 Blood Pressure Mean Blood Pressure Mean [Left Arm] 84 80 Pulse Oximetry 99 99 Oxygen Delivery Method Nasal Cannula Nasal Cannula Nasal Cannula Oxygen Flow Rate 2 2 2 Sepsis Recent Fever Within 48 Hours Sepsis New/Unexplained Change in Mental Status Sepsis Action Taken by Nursing 10/05/21 08:30 10/05/21 09:00 10/05/21 09:00 Temperature Temperature Source Pulse Rate Pulse Rate [Apical] 87 Respiratory Rate 20 20 Respiratory Effort / Characteristics Non-Labored Spontaneous Non-Labored Spontaneous Non-Labored Spontaneous Respiratory Depth Normal Blood Pressure Blood Pressure [Left Arm] 110/65 Blood Pressure Mean Blood Pressure Mean [Left Arm] 80 Pulse Oximetry 99 99 Oxygen Delivery Method Nasal Cannula Room Air Nasal Cannula Oxygen Flow Rate 2 2 Sepsis Recent Fever Within 48 Hours Sepsis New/Unexplained Change in Mental Status Sepsis Action Taken by Nursing 10/05/21 09:45 10/05/21 10:00 Temperature Temperature Source Pulse Rate Pulse Rate [Apical] 97 H Respiratory Rate 18 Respiratory Effort / Characteristics Non-Labored Spontaneous Non-Labored Spontaneous Respiratory Depth Normal Blood Pressure Blood Pressure [Left Arm] 118/61 Blood Pressure Mean Blood Pressure Mean [Left Arm] 80 Pulse Oximetry 100 Oxygen Delivery Method Nasal Cannula Nasal Cannula Oxygen Flow Rate 2 2 Sepsis Recent Fever Within 48 Hours Sepsis New/Unexplained Change in Mental Status Sepsis Action Taken by Nursing CONSTITUTIONAL/VITAL SIGNS: Reviewed / noted above. GENERAL: Non-toxic in appearance. INTEGUMENTARY: Warm, dry, and [place]. HEAD: Normocephalic. EYES: without scleral icterus or trauma. ENT/OROPHARYNX: clear and moist. LYMPHADENOPATHY/NECK: Is supple without lymphadenopathy or meningismus. RESPIRATORY: Clear to auscultation bilaterally. No increased work of breathing. CARDIOVASCULAR: Regular rate and rhythm. GI/ABDOMEN: Soft and nontender. No organomegaly or pulsatile mass. EXTREMITIES: Warm and well perfused. BACK: No CVA tenderness. NEUROLOGICAL: Intact without focal deficits. PSYCHIATRIC: normal affect. MUSCULOSKELETAL: Normally developed with good muscle tone. TRIAGE NURSING DOCUMENTATION REVIEWED. Course Administered Medications Discontinued Medications Ertapenem (Invanz) 10 mls @ 2 mls/min IV NOW STA Stop: 10/05/21 07:09 Last Admin: 10/05/21 07:36 Dose: Not Given Documented By: MH Ioversol (Optiray 320 125ml) 120 ml IV ONCE ONE Stop: 10/05/21 09:44 Last Admin: 10/05/21 09:44 Dose: 120 ml Documented By: MAINE Medical Decision Making Differential Diagnosis The differential was considered includes acute myocardial infarction, acute coronary syndrome, myocarditis, pericarditis, pericardial effusions /tamponad, esophageal perforation, pulmonary embolism, pneumonia, pneumothorax, cardiomyopathy, congestive heart, anemia , COPD/asthma exacerbation. Medical Records Attestation: I reviewed the patient's medical records. Home Medications Current Medication List: was personally reviewed by mt Laboratory Data Attestation: I reviewed the patient's lab results. Result diagrams: 10/05/21 07:10/05/21 08:32 Lab Results 10/05/21 10/05/21 10/05/21 Range/Units 07:27 07:27 07:27 WBC 5.00 (4.8-10.8) K/ul RBC 4.63 (3.93-5.22) M/uL Hgb 13.6 (12.0-16.0) g/dl Hct 41.9 (34.1-44.9) % MCV 90.5 (80.0-100.0) fL MCH 29.4 (25.0-34.0) pg MCHC 32.5 (32.0-36.0) g/dL RDW Std Deviation 50.9 H (36.4-46.3) fL RDW Coeff of Niru 15.2 H (11.5-14.5) % Plt Count 187 (130-400) K/uL MPV 9.8 (9.4-12.3) fL Immature Gran % (Auto) 0.0 % Neut % (Auto) 81.2 % Lymph % (Auto) 10.0 % [place] % (Auto) 8.4 % Eos % (Auto) 0.0 % Baso % (Auto) 0.4 % Neut # (Auto) 4.06 (1.4-6.5) K/uL Lymph # (Auto) 0.50 L (1.2-3.4) K/uL [place] # (Auto) 0.42 (0.24-0.82) K/uL Eos # (Auto) 0.00 (0-0.50) K/uL Baso # (Auto) 0.02 (0-0.2) K/uL Immature Gran # (Auto) 0.00 (0.00-0.02) K/uL PT Cancelled INR Cancelled APTT Cancelled PTT Ratio Cancelled Sodium 129 L (136-145) mmol/L Potassium TNP Chloride 92 L (98-107) mmol/L Carbon Dioxide 31 (21-32) mmol/L Anion Gap 6 (3-11) BUN 8 (6-23) mg/dl Creatinine 0.47 L (0.6-1.2) mg/dl Est Cr Clr Drug Dosing 65.8 ml/min Est GFR ( Amer) 118.5 ml/min Est GFR (Non-Af Amer) 102.2 ml/min BUN/Creatinine Ratio 17.0 (10-20) Glucose 92 (70-99(Fasting)) mg/dl Lactate (0.4-2.0) mmol/L Calcium 8.8 (8.5-10.1) mg/dl Magnesium 1.4 L (1.7-2.4) mg/dl Total Bilirubin 0.4 (0.2-1.0) mg/dl AST TNP ALT 7 (7-52) U/L Alkaline Phosphatase 87 (34-104) U/L Troponin I High Sens 4.3 (0-14) pg/ml Total Protein 7.0 (6.0-8.3) gm/dl Albumin 4.0 (3.4-5.0) gm/dl Globulin 3.0 (2.5-4.0) gm/dl Albumin/Globulin Ratio 1.3 (0.9-2) SARS-CoV-2, RNA, NAAT (NEGATIVE) 10/05/21 10/05/21 10/05/21 Range/Units 07:27 08:32 08:32 WBC (4.8-10.8) K/ul RBC (3.93-5.22) M/uL Hgb (12.0-16.0) g/dl Hct (34.1-44.9) % MCV (80.0-100.0) fL MCH (25.0-34.0) pg MCHC (32.0-36.0) g/dL RDW Std Deviation (36.4-46.3) fL RDW Coeff of Niru (11.5-14.5) % Plt Count (130-400) K/uL MPV (9.4-12.3) fL Immature Gran % (Auto) % Neut % (Auto) % Lymph % (Auto) % [place] % (Auto) % Eos % (Auto) % Baso % (Auto) % Neut # (Auto) (1.4-6.5) K/uL Lymph # (Auto) (1.2-3.4) K/uL [place] # (Auto) (0.24-0.82) K/uL Eos # (Auto) (0-0.50) K/uL Baso # (Auto) (0-0.2) K/uL Immature Gran # (Auto) (0.00-0.02) K/uL PT 11.7 INR 1.1 APTT 36.7 H PTT Ratio 1.3 Sodium (136-145) mmol/L Potassium 4.2 Chloride (98-107) mmol/L Carbon Dioxide (21-32) mmol/L Anion Gap (3-11) BUN (6-23) mg/dl Creatinine (0.6-1.2) mg/dl Est Cr Clr Drug Dosing ml/min Est GFR ( Amer) ml/min Est GFR (Non-Af Amer) ml/min BUN/Creatinine Ratio (10-20) Glucose (70-99(Fasting)) mg/dl Lactate 0.5 (0.4-2.0) mmol/L Calcium (8.5-10.1) mg/dl Magnesium (1.7-2.4) mg/dl Total Bilirubin (0.2-1.0) mg/dl AST 12 L ALT (7-52) U/L Alkaline Phosphatase (34-104) U/L Troponin I High Sens (0-14) pg/ml Total Protein (6.0-8.3) gm/dl Albumin (3.4-5.0) gm/dl Globulin (2.5-4.0) gm/dl Albumin/Globulin Ratio (0.9-2) SARS-CoV-2, RNA, NAAT (NEGATIVE) 10/05/21 Range/Units 08:45 WBC (4.8-10.8) K/ul RBC (3.93-5.22) M/uL Hgb (12.0-16.0) g/dl Hct (34.1-44.9) % MCV (80.0-100.0) fL MCH (25.0-34.0) pg MCHC (32.0-36.0) g/dL RDW Std Deviation (36.4-46.3) fL RDW Coeff of Niru (11.5-14.5) % Plt Count (130-400) K/uL MPV (9.4-12.3) fL Immature Gran % (Auto) % Neut % (Auto) % Lymph % (Auto) % [place] % (Auto) % Eos % (Auto) % Baso % (Auto) % Neut # (Auto) (1.4-6.5) K/uL Lymph # (Auto) (1.2-3.4) K/uL [place] # (Auto) (0.24-0.82) K/uL Eos # (Auto) (0-0.50) K/uL Baso # (Auto) (0-0.2) K/uL Immature Gran # (Auto) (0.00-0.02) K/uL PT INR APTT PTT Ratio Sodium (136-145) mmol/L Potassium Chloride (98-107) mmol/L Carbon Dioxide (21-32) mmol/L Anion Gap (3-11) BUN (6-23) mg/dl Creatinine (0.6-1.2) mg/dl Est Cr Clr Drug Dosing ml/min Est GFR ( Amer) ml/min Est GFR (Non-Af Amer) ml/min BUN/Creatinine Ratio (10-20) Glucose (70-99(Fasting)) mg/dl Lactate (0.4-2.0) mmol/L Calcium (8.5-10.1) mg/dl Magnesium (1.7-2.4) mg/dl Total Bilirubin (0.2-1.0) mg/dl AST ALT (7-52) U/L Alkaline Phosphatase (34-104) U/L Troponin I High Sens (0-14) pg/ml Total Protein (6.0-8.3) gm/dl Albumin (3.4-5.0) gm/dl Globulin (2.5-4.0) gm/dl Albumin/Globulin Ratio (0.9-2) SARS-CoV-2, RNA, NAAT NEGATIVE (NEGATIVE) Imaging Data Radiologist's Impression: Chest X-Ray 10/05/21 07:05 XR chest 1V portable HISTORY: SEPSIS COMPARISON: Chest 03/07/2021. FINDINGS: Postoperative changes again noted within the right hemithorax consistent with prior pneumonectomy. This accounts for the right mediastinal shift and hyperexpanded left lung. There is mild interstitial thickening within the left lung. Emphysema again noted. No left-sided pneumothorax or left pleural effusions. No new focal consolidations within the left lung to suggest a pneumonia. IMPRESSION: 1. No change in the right pneumonectomy changes. 2. No consolidation within the left lung to suggest a pneumonia. ACT 112: Negative or not required by law. Electronically signed by: Miguel Zhang M.D. 10/05/2021 8:22 AM Chest CTA 10/05/21 08:42 CT ANGIOGRAM OF THE CHEST CLINICAL HISTORY: Dyspnea. Generalized weakness. History of lung cancer. COMPARISON STUDY: Chest CT scan dated 04/03/2021 and 05/11/2014. TECHNIQUE: Following the IV administration of 120 cc of Optiray 320, CT angiogram of the chest was performed from the upper abdomen to the thoracic inlet utilizing the pulmonary embolus protocol. Images are reviewed in the axial, sagittal, and coronal planes. 3-D MIPS images are created and assessed. IV contrast was administered without complication. A dose lowering technique was utilized adhering to the principles of ALARA. The examination is modestly degraded by motion artifact. There is streak artifact from the arms which could not be elevated above the chest. CT DOSE: 278.68 mGy.cm FINDINGS: Thyroid: Imaged portions of the thyroid gland are normal in size and attenuation. Thoracic aorta: There is atherosclerotic calcification of the thoracic aorta. Ectasia of the ascending thoracic aorta is unchanged, measuring up to 3.9 cm in diameter. The remainder of the thoracic aorta is normal in caliber and the arch demonstrates standard 3-vessel anatomy. No dissection is seen. Pulmonary vasculature: The pulmonary trunk and left pulmonary artery are dilated suggesting pulmonary artery hypertension. No thrombus is seen within the right main pulmonary artery. The remaining right-sided pulmonary vessels are surgically absent. There are no filling defects identified in left main, lobar, or segmental pulmonary branches to suggest pulmonary embolus. Heart: There is rightward shift of mediastinum. The heart is normal in size and without pericardial effusion. Lungs and pleural spaces: Evaluation of the lungs is modestly degraded by motion artifact. There is postoperative change and volume loss consistent with right-sided pneumonectomy. There is compensatory hyperinflation of the left lung. A peripherally calcified chronic fluid collection in the right hemithorax is unchanged from previous. This measures approximately 12 x 7 x 2 cm. There is no airspace consolidation typical for pneumonia and no left-sided pleural effusion. A 7 mm pleural-based nodule at the left lung base image #85 is unchanged from 2019. A 7 mm nodular opacity at the left apex on image #279 is new from previous. Fibrotic change is again seen in the lingula. The trachea and left mainstem bronchus are clear. Mediastinum: There is no mediastinal lymphadenopathy. Jinny: Clear. Axillae: There is no axillary lymphadenopathy. Upper abdomen: A calcified granuloma is noted in the spleen. The liver appears cirrhotic in morphology, with nodularity of the surface contour and hypertrophy of the left lobe. Skeletal structures: The skeletal structures are osteopenic. Degenerative change and hyperkyphosis is noted throughout the thoracic spine. There are several chronic mild thoracic compression deformities. No lytic or blastic bony lesions are seen. Chronic/postoperative change is noted in the right sided ribs. IMPRESSION: 1. There is no evidence of pulmonary embolus in the left main, lobar, or segmental pulmonary arteries. 2. Advanced emphysema with chronic and postoperative changes including right- sided pneumonectomy as above. 3. There is no airspace consolidation typical for pneumonia or left pleural effusion. 4. A 7 mm left upper lobe nodular opacity is new from prior studies. This is pathologically indeterminant and attention at follow-up is recommended. 5. Cirrhotic liver morphology. 6. Additional findings as above. ACT 112: Negative or not required by law. Electronically signed by: Teodoro Carrion M.D. 10/05/2021 9:57 AM ECG Data Attestation: I personally reviewed and interpreted this ECG as follows: Additional Comments: Twelve-lead EKG: Per my interpretation shows a normal sinus rhythm at a rate of 94. No ST elevation. No PVCs. Normal QTC MDM Narrative 66-year-old female chronically on 2 L of oxygen for chronic COPD and ongoing smoking presents with increasing shortness of breath especially with exertion. She also describes some chest tightness. Pulse ox at rest was 100% on her 2 L. Patient did receive a DuoNeb treatment in route here by EMS. With ambulation the patient's pulse ox dropped to 80%. A chest x-ray did not show acute process. This was negative. Sodium slightly low at 129. CBC was normal. Chemistry panel was otherwise unremarkable. EKG shows a normal sinus rhythm. CT scan of the chest did not show acute process. No PE. The patient was told the results of the test. Because of her hypoxia, the patient will need further inpatient evaluation Impression & Plan COPD exacerbation, Hypoxia, Exertional dyspnea Discharge Plan Visit Data Chief Complaint: Weakness Stated Complaint: WEAKNESS, LETHARGIC, SOB ED Provider: Trenton Julien Discharge Problem: COPD exacerbation, Hypoxia, Exertional dyspnea Forms Stand Alone Forms: [facility] O[facility] Niblitz Prescriptions Prescriptions: No Action mirtazapine 15 mg tablet 7.5 mg PO HS Qty: 30 5RF arformoterol [Brovana] 15 mcg/2 mL solution for nebulization 2 ml inhalation BID Qty: 120 11RF Rx Instructions: for advanced COPD albuterol sulfate [ProAir HFA] 90 mcg/actuation HFA aerosol inhaler 2 puff INH .Q4-6HRS PRN (Reason: Shortness Of Breath Or Wheezing) Qty: 18 11R F Combivent Respimat 20-100 mcg/actuation mist 1 puff inhalation Q6H Qty: 4 3RF budesonide [Pulmicort] 0.5 mg/2 mL suspension for nebulization 0.5 mg inhalation BID Qty: 120 11RF Rx Instructions: for advanced COPD lorazepam 0.5 mg tablet 0.5 mg PO BID PRN (Reason: muscle spasm or for insomnia) Qty: 30 0RF albuterol sulfate 2.5 mg /3 mL (0.083 %) solution for nebulization 2.5 mg INH QID PRN (Reason: Shortness Of Breath Or Wheezing) Qty: 180 8RF levofloxacin 500 mg tablet 500 mg PO DAILY Qty: 10 1RF nicotine 7 mg/24 hr Patch 24 Hour 14 mg transdermal QAM Qty: 30 0RF acetaminophen 325 mg Tablet 650 mg PO Q4H PRN (Reason: pain) Qty: 30 0RF benzonatate 100 mg Capsule 200 mg PO Q8H PRN (Reason: cough) Qty: 20 0RF thiamine HCl (vitamin B1) 100 mg Tablet 100 mg PO QAM Qty: 30 0RF Rx Instructions: OTC magnesium oxide 250 mg magnesium tablet 250 mg PO DAILY Qty: 30 0RF Rx Instructions: OTC guaifenesin [Mucinex] 600 mg tablet extended release 12hr 600 mg PO BID Qty: 60 0RF Rx Instructions: OTC Referrals Referrals: Temitope Shaikh MD [Primary Care Provider] -
[2021-10-05 09:11] LABS: Potassium 4.2 mmol/L (3.5-5.1)
[2021-10-05 09:14] LABS: INR 1.1 (0.9-1.1); Partial Thromboplastin Ratio 1.3; Partial Thromboplastin Time 36.7 Seconds (21.0-31.0); Prothrombin Time 11.7 Seconds (9.0-12.0)
[2021-10-05] MEDS ORDERED: OPTIRAY 320 125ml IV ONE (09:43)
--- NOTE | 2021-10-05 09:58 | CT Scan Report ---
CT ANGIOGRAM OF THE CHEST CLINICAL HISTORY: Dyspnea. Generalized weakness. History of lung cancer. COMPARISON STUDY: Chest CT scan dated 04/03/2021 and 05/11/2014. TECHNIQUE: Following the IV administration of 120 cc of Optiray 320, CT angiogram of the chest was pe rformed from the upper abdomen to the thoracic inlet utilizing the pulmonary embolus protocol. Images are reviewed in the axial, sagittal, and coronal planes. 3-D MIPS images are created and assessed. I V contrast was administered without complication. A dose lowering technique was utilized adhering to the principles of ALARA. The examination is modestly degraded by motion artifact. There is streak ar tifact from the arms which could not be elevated above the chest. CT DOSE: 278.68 mGy.cm FINDINGS: Thyroid: Imaged portions of the thyroid gland are normal in size and attenuation. Thoracic aorta: There is atherosclerotic calcification of the thoracic aorta. Ectasia of the ascendin g thoracic aorta is unchanged, measuring up to 3.9 cm in diameter. The remainder of the thoracic aort a is normal in caliber and the arch demonstrates standard 3-vessel anatomy. No dissection is seen. Pulmonary vasculature: The pulmonary trunk and left pulmonary artery are dilated suggesting pulmonary artery hypertension. No thrombus is seen within the right main pulmonary artery. The remaining right -sided pulmonary vessels are surgically absent. There are no filling defects identified in left main, lobar, or segmental pulmonary branches to suggest pulmonary embolus. Heart: There is rightward shift of mediastinum. The heart is normal in size and without pericardial e ffusion. Lungs and pleural spaces: Evaluation of the lungs is modestly degraded by motion artifact. There is p ostoperative change and volume loss consistent with right-sided pneumonectomy. There is compensatory hyperinflation of the left lung. A peripherally calcified chronic fluid collection in the right hemit horax is unchanged from previous. This measures approximately 12 x 7 x 2 cm. There is no airspace con solidation typical for pneumonia and no left-sided pleural effusion. A 7 mm pleural-based nodule at t he left lung base image #85 is unchanged from 2019. A 7 mm nodular opacity at the left apex on image #279 is new from previous. Fibrotic change is again seen in the lingula. The trachea and left mainste m bronchus are clear. Mediastinum: There is no mediastinal lymphadenopathy. Jinny: Clear. Axillae: There is no axillary lymphadenopathy. Upper abdomen: A calcified granuloma is noted in the spleen. The liver appears cirrhotic in morpholog y, with nodularity of the surface contour and hypertrophy of the left lobe. Skeletal structures: The skeletal structures are osteopenic. Degenerative change and hyperkyphosis is noted throughout the thoracic spine. There are several chronic mild thoracic compression deformities . No lytic or blastic bony lesions are seen. Chronic/postoperative change is noted in the right sided ribs. IMPRESSION: 1. There is no evidence of pulmonary embolus in the left main, lobar, or segmental pulmonary arteries . 2. Advanced emphysema with chronic and postoperative changes including right-sided pneumonectomy as a santos. 3. There is no airspace consolidation typical for pneumonia or left pleural effusion. 4. A 7 mm left upper lobe nodular opacity is new from prior studies. This is pathologically indetermi nant and attention at follow-up is recommended. 5. Cirrhotic liver morphology. 6. Additional findings as above. ACT 112: Negative or not required by law. Electronically signed by: Teodoro Carrion M.D. 10/05/2021 9:57 AM
--- NOTE | 2021-10-05 11:10 | History & Physical Report ---
Date of Service October 05, 2021 Assessment & Plan (1) COPD exacerbation: Plan: No wheezing but poor air entry into her remaining left lung Solu-Medrol 125 mg IV now then 40 mg IV twice daily DuoNebs every 4 hourly Azithromycin 500 mg p.o. now then 250 mg p.o. daily for 4 days Continue her usual Brovana and Pulmicort (ipratropium effectively will be her LAMA therefore no need to continue Combivent) (2) Hyponatremia: Plan: She has a prior diagnosis of chronic SIADH but does not appear to be on any chronic medications for this -urine studies in 2019 support this diagnosis. Previous hospitalizations sodium has improved with intravenous normal saline in addition however therefore suspect somewhat due to poor oral intake. Will start a slow normal saline intravenous drip and repeat levels in AM. (3) Hypomagnesemia: Plan: Magnesium level 1.4 Continue her usual magnesium oxide supplementation Replete intravenously with mag sulfate 3 g IV and repeat level in a.m. (4) Abnormal CT scan, chest: Plan: Consider repeat CT due to 7 mm left upper lobe nodule although patient is not a surgical candidate and even a biopsy may be too high risk (5) Tobacco use disorder: Plan: Nicotine patch -continue smoking cessation advise (6) Protein calorie malnutrition: Plan: Suspect secondary to advanced COPD with ongoing tobacco use Boostrix ordered (7) Chronic reflux esophagitis: Plan: Not on any chronic medication for this however having epigastric pain on exami nation. Recommend GI prophylaxis while on steroids. Start famotidine 20 mg IV daily (8) B12 deficiency: Plan: Continue cyanocobalamin 1000 mcg p.o. daily (9) Thiamine deficiency: Plan: Continue vitamin B1 100 mg p.o. daily (10) Depression: Plan: Continue mirtazapine 7.5 mg p.o. at bedtime Plan VTE prophylaxis - Lovenox 30 mg subcu daily Diet - regular, easy to chew due to previous choking episodes Disposition - admit to [facility] Admission and Anticipated Discharge Date Admission Date: October 04, 2021 History of Present Illness Chief Complaint: Shortness of breath Primary Care Provider: Temitope Shaikh MD Amy Posadas is a 66-year-old female with right pneumonectomy, COPD and chronic hypoxic respiratory failure with baseline 2 L/min O2 requirement who presents to the ER via EMS due to shortness of breath, weakness and lethargy. She reports shortness of breath getting progressively worse for the last 5 days (since Friday). Slight change in her chronic cough -it is currently more scratchy. Associated chest tightness at rest and on exertion for the last 2 days. She denies any choking episodes which have been a problem in the past, no dysphagia or odynophagia. No fevers or chills. She continues to smoke half a pack a day. She reports quitting smoking for 2 months after last admission but went back due to generalized frustration. She does report nebulizer treatment limited helped given by EMS. She previously drank excessive alcohol but denies any alcohol use for the last 6 months. She has not taken any steroids for this exacerbation. Only new medication is Combivent which she started 1 month ago as Spiriva is no longer affordable. In the ER she was noted to have O2 sats to drop to 80% on exertion on her usual 2 L/min therefore she was referred to medicine for admission ongoing management of hypoxia on exertion. Allergies Allergy/AdvReac Type Severity Reaction Status Date / Time aspirin Allergy Severe SEVERE Verified 04/02/21 22:09 STOMACH CRAMPING sulfamethoxazole Allergy Severe TONGUE Verified 04/02/21 22:09 SWELLING trimethoprim Allergy Severe TONGUE Verified 04/02/21 22:09 SWELLING Penicillins Allergy Unknown Unknown Verified 04/02/21 22:09 Home Medications Medication Instructions Recorded Confirmed Type albuterol sulfate 2.5 mg (3 mL) inhalation QID PRN 06/26/20 04/19/21 Rx Shortness Of Breath Or Wheezing #180 mL mirtazapine 15 mg tablet 7.5 mg PO HS #30 tabs 10/03/20 04/19/21 Rx nicotine 7 mg/24 hr daily 14 mg transdermal QAM #30 ea 01/21/21 04/19/21 Rx transdermal patch acetaminophen 325 mg tablet 650 mg PO Q4H PRN pain #30 tabs 04/12/21 04/19/21 Rx benzonatate 100 mg capsule 200 mg PO Q8H PRN cough #20 caps 04/12/21 04/19/21 Rx guaifenesin 600 mg tablet, 600 mg PO BID #60 tabs 04/12/21 04/19/21 Rx extended release 12 hr (Mucinex) magnesium oxide 250 mg PO DAILY #30 tabs 04/12/21 04/19/21 Rx thiamine HCl (vitamin B1) 100 mg 100 mg PO QAM #30 tabs 04/12/21 04/19/21 Rx tablet lorazepam 0.5 mg tablet 0.5 mg PO BID PRN muscle spasm or 04/19/21 04/19/21 Rx for insomnia #30 tabs budesonide 0.5 mg/2 mL suspension 0.5 mg (2 mL) inhalation BID #120 04/23/21 04/23/21 Rx for nebulization (Pulmicort) mL Brovana 15 mcg/2 mL solution for 2 ml inhalation BID Advanced COPD 04/24/21 Rx nebulization (arformoterol) #120 mL levofloxacin 500 mg tablet 500 mg PO DAILY #10 tabs 06/11/21 06/11/21 Rx albuterol sulfate 90 mcg/actuation 2 puff inhalation .Q4-6HRS PRN 07/31/21 Rx aerosol inhaler (ProAir HFA) Shortness Of Breath Or Wheezing #18 grams ipratropium 20 mcg-albuterol 100 1 puff inhalation Q6H #4 grams 08/30/21 Rx mcg/actuation mist for inhalation (Combivent Respimat) Past Med/Surg History Medical History Abnormal CT scan, gastrointestinal tract Alcoholism B12 deficiency Bilateral kidney stones Chronic obstructive pulmonary disease Chronic reflux esophagitis Chronic respiratory failure Dilation of thoracic aorta Hypomagnesemia Influenza Leukocytosis Lung cancer Osteoporosis Palliative care encounter Pneumonia Pneumonia Protein calorie malnutrition SIADH (syndrome of inappropriate ADH production) Squamous cell carcinoma of lung Unspecified cirrhosis of liver Surgical History History of pneumonectomy S/P lobectomy of lung Family History Father Aortic aneurysm Hypertension Mother COPD (chronic obstructive pulmonary disease) CHF (congestive heart failure) Osteoporosis Renal failure Grandmother Diabetes Grandfather Skin cancer Other Myocardial infarction No pertinent family history in first degree relatives Denies family history of Ovarian cancer Prostate cancer Breast cancer Colorectal cancer Social History Smoking Status: Current every day smoker Tobacco Type: Cigarettes Cigarettes Per Day: 20; Second Hand Exposure: No; Hx Alcohol Use: No Hx Substance Use: No Preferred Language: German Communication Ability: Effective Visual Impairment: No Limitations 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: No Beliefs That Will Affect Care: None marital status: Life Partner Current Living Situation: Significant Other current occupational status: disabled How many Children do You have: 3 Feels Safe at Home: Yes Dental Care, Regularly: No Physical Activity Frequency: Does not Exercise Seatbelt Use: always Sunscreen Use: No Assistive Devices: Oxygen - Continuous Review of Systems Review of Systems: All systems reviewed & are unremarkable except as noted in HPI & below Physical Exam Constitutional: well developed, + cachectic and + frail appearing; + not well nourished and no acute distress Eyes: + anicteric sclerae; normal pupil size ENMT: Mouth: + dry oral mucous membranes Neck: trachea midline, no thyromegaly Respiratory: normal respiratory effort and able to speak in complete sentences; no respiratory distress Auscultation: + breath sounds absent (Right-sided) and + diminished lung sounds (Left-sided); no crackles and no wheezes Cardiovascular: RRR, no murmur, no edema Gastrointestinal (Abdomen): Inspection/Auscultation: normal bowel sounds Percussion/Palpation: + abdomen tender (Epigastric) and abdomen soft; no guarding and abdomen not rigid Musculoskeletal: no cyanosis or clubbing, extremities motor strength 5/5 Skin: no rashes, warm and dry Neurologic: moves all extremities and awake; not confused Psychiatric: A+Ox3, euthymic affect Results & Data Results & Data ([facility]) Vital Signs (Past 12 Hours) Vital Signs Temp Pulse Pulse Resp BP BP Pulse Ox 10/05/21 10:00 10/05/21 09:45 97 H 18 118/61 100 10/05/21 09:00 20 99 10/05/21 09:00 87 20 110/65 99 10/05/21 08:30 10/05/21 08:15 20 100/71 99 10/05/21 08:00 10/05/21 08:00 97 H 19 126/64 99 10/05/21 07:30 10/05/21 07:40 107 H 23 80 L 10/05/21 07:45 87 23 121/62 96 10/05/21 07:30 90 12 109/59 L 98 10/05/21 07:15 94 H 19 107/67 97 10/05/21 07:05 2 L 10/05/21 07:05 10/05/21 07:05 17 97 10/05/21 07:04 36.7 C 98 H 18 115/75 96 O2 Del Method O2 Flow Rate 10/05/21 10:00 Nasal Cannula 2 10/05/21 09:45 Nasal Cannula 2 10/05/21 09:00 Nasal Cannula 2 10/05/21 09:00 Room Air 10/05/21 08:30 Nasal Cannula 2 10/05/21 08:15 Nasal Cannula 2 10/05/21 08:00 Nasal Cannula 2 10/05/21 08:00 Nasal Cannula 2 10/05/21 07:30 Nasal Cannula 2 10/05/21 07:40 Nasal Cannula 2 10/05/21 07:45 Nasal Cannula 2 10/05/21 07:30 Nasal Cannula 2 10/05/21 07:15 Nasal Cannula 2 10/05/21 07:05 Nasal Cannula 10/05/21 07:05 Nasal Cannula 2 10/05/21 07:05 10/05/21 07:04 Nasal Cannula 2 Laboratory Results Abnormal lab results 10/05/21 10/05/21 10/05/21 Range/Units 07:27 07:27 08:32 RDW Std Deviation 50.9 H (36.4-46.3) fL RDW Coeff of Niur 15.2 H (11.5-14.5) % Lymph # (Auto) 0.50 L (1.2-3.4) K/uL APTT 36.7 H (21.0-31.0) Seconds Sodium 129 L (136-145) mmol/L Chloride 92 L (98-107) mmol/L Creatinine 0.47 L (0.6-1.2) mg/dl Magnesium 1.4 L (1.7-2.4) mg/dl AST (13-39) U/L 10/05/21 Range/Units 08:32 RDW Std Deviation (36.4-46.3) fL RDW Coeff of Niru (11.5-14.5) % Lymph # (Auto) (1.2-3.4) K/uL APTT (21.0-31.0) Seconds Sodium (136-145) mmol/L Chloride (98-107) mmol/L Creatinine (0.6-1.2) mg/dl Magnesium (1.7-2.4) mg/dl AST 12 L (13-39) U/L Diagnostic Findings XR chest 1V portable HISTORY: SEPSIS COMPARISON: Chest 03/07/2021. FINDINGS: Postoperative changes again noted within the right hemithorax consistent with prior pneumonectomy. This accounts for the right mediastinal shift and hyperexpanded left lung. There is mild interstitial thickening within the left lung. Emphysema again noted. No left-sided pneumothorax or left pleural effusions. No new focal consolidations within the left lung to suggest a pneumonia. IMPRESSION: 1. No change in the right pneumonectomy changes. 2. No consolidation within the left lung to suggest a pneumonia. CT ANGIOGRAM OF THE CHEST CLINICAL HISTORY: Dyspnea. Generalized weakness. History of lung cancer. COMPARISON STUDY: Chest CT scan dated 04/03/2021 and 05/11/2014. TECHNIQUE: Following the IV administration of 120 cc of Optiray 320, CT angiogram of the chest was performed from the upper abdomen to the thoracic inlet utilizing the pulmonary embolus protocol. Images are reviewed in the axial, sagittal, and coronal planes. 3-D MIPS images are created and assessed. IV contrast was administered without complication. A dose lowering technique was utilized adhering to the principles of ALARA. The examination is modestly degraded by motion artifact. There is streak artifact from the arms which could not be elevated above the chest. CT DOSE: 278.68 mGy.cm FINDINGS: Thyroid: Imaged portions of the thyroid gland are normal in size and attenuation. Thoracic aorta: There is atherosclerotic calcification of the thoracic aorta. Ectasia of the ascending thoracic aorta is unchanged, measuring up to 3.9 cm in diameter. The remainder of the thoracic aorta is normal in caliber and the arch demonstrates standard 3-vessel anatomy. No dissection is seen. Pulmonary vasculature: The pulmonary trunk and left pulmonary artery are dilated suggesting pulmonary artery hypertension. No thrombus is seen within the right main pulmonary artery. The remaining right-sided pulmonary vessels are surgically absent. There are no filling defects identified in left main, lobar, or segmental pulmonary branches to suggest pulmonary embolus. Heart: There is rightward shift of mediastinum. The heart is normal in size and without pericardial effusion. Lungs and pleural spaces: Evaluation of the lungs is modestly degraded by motion artifact. There is postoperative change and volume loss consistent with right- sided pneumonectomy. There is compensatory hyperinflation of the left lung. A peripherally calcified chronic fluid collection in the right hemithorax is unchanged from previous. This measures approximately 12 x 7 x 2 cm. There is no airspace consolidation typical for pneumonia and no left-sided pleural effusion. A 7 mm pleural-based nodule at the left lung base image #85 is unchanged from 2019. A 7 mm nodular opacity at the left apex on image #279 is new from previous. Fibrotic change is again seen in the lingula. The trachea and left mainstem bronchus are clear. Mediastinum: There is no mediastinal lymphadenopathy. Jinny: Clear. Axillae: There is no axillary lymphadenopathy. Upper abdomen: A calcified granuloma is noted in the spleen. The liver appears cirrhotic in morphology, with nodularity of the surface contour and hypertrophy of the left lobe. Skeletal structures: The skeletal structures are osteopenic. Degenerative change and hyperkyphosis is noted throughout the thoracic spine. There are several chronic mild thoracic compression deformities. No lytic or blastic bony lesions are seen. Chronic/postoperative change is noted in the right sided ribs. IMPRESSION: 1. There is no evidence of pulmonary embolus in the left main, lobar, or segmental pulmonary arteries. 2. Advanced emphysema with chronic and postoperative changes including right- sided pneumonectomy as above. 3. There is no airspace consolidation typical for pneumonia or left pleural effusion. 4. A 7 mm left upper lobe nodular opacity is new from prior studies. This is pathologically indeterminant and attention at follow-up is recommended. 5. Cirrhotic liver morphology. 6. Additional findings as above. Medications Administered ER medications given: None ECG Indication: SOB/dyspnea Rate (beats per minute): 94 Rhythm: normal sinus Findings: + other (Right atrial enlargement) Comparison ECG Date: from (April 02, 2021) Change: the following changes noted (PACs no longer present) Code Status & VTE Plan Code Status DNR/DNI as discussed with the patient and consistent with previous hospitalizations VTE Prophylaxis Plan VTE Prophylaxis will be ordered: Yes PG Care Time/CCT Total # of Minutes Spent Total Time Spent with Patient: Total time spent is greater than 50% in coordination of care (as documented) at patient's floor/unit and/or counseling patient: Coding Level of Care Code 66005 Initial Inpt Care Lvl 3 Diagnoses COPD exacerbation J44.1 Hyponatremia E87.[address] scan, chest R93.89 Tobacco use disorder F17.200 Protein calorie malnutrition E46 Chronic reflux esophagitis K21.0 B12 deficiency E53.8 Thiamine deficiency E51.9 Depression F32.9
[2021-10-05 11:14] LABS: Appearance Urine Clear (Clear); Bilirubin Urine Negative (Negative); Blood Urine Negative (Negative); Color Urine Yellow; Glucose Urine UA Negative (Negative); Ketones Urine 1+ (Negative); Leukocyte Esterase Urine Negative (Negative); Nitrite Urine Negative (Negative); Protein Urine Negative (Negative); Specific Gravity Urine > 1.045 (1.000-1.030); Urobilinogen Urine Negative (Negative); pH Urine 6.5 (4.5-7.5)
[2021-10-05] MEDS ORDERED: methylPREDNISolone 125 MG/2 ML VIAL IV STA (11:28)
--- NOTE | 2021-10-05 11:28 | Electrocardiogram Report ---
Test Reason : Blood Pressure : / mmHG Vent. Rate : 094 BPM Atrial Rate : 094 BPM P-R Int : 126 ms QRS Dur : 076 ms QT Int : 356 ms P-R-T Axes : 065 060 064 degrees QTc Int : 445 ms Poor data quality, interpretation may be adversely affected Normal sinus rhythm Right atrial enlargement Borderline ECG When compared with ECG of 02-APR-2021 22:12, Premature atrial complexes are no longer Present Confirmed by Espinoza Peres ([id number]) on 10/05/2021 11:28:04 AM Referred By: Confirmed By:Espinoza Peres
[2021-10-05] MEDS ORDERED: ACETAMINOPHEN 325 MG TAB PO STA (11:33)
[2021-10-05] MEDS ORDERED: AZITHROMYCIN 250 MG TAB PO STA (11:33)
[2021-10-05] MEDS ORDERED: FAMOTIDINE 20MG IV PUSH 20 MG/5 ML SYR IV STA (11:38)
[2021-10-05 13:27] LABS: Adenovirus PCR Not Detected (NotDetected); Bordetella parapertussis PCR Not Detected (NotDetected); Bordetella pertussis PCR Not Detected (NotDetected); Chlamydia pneumoniae PCR Not Detected (NotDetected); Coronavirus 229E PCR Not Detected (NotDetected); Coronavirus CoV-2 (COVID19)PCR Not Detected (NotDetected); Coronavirus HKU1 PCR Not Detected (NotDetected); Coronavirus NL63 PCR Not Detected (NotDetected); Coronavirus OC43PCR Not Detected (NotDetected); Human Metapneumovirus PCR Not Detected (NotDetected); Influenza A PCR Not Detected (NotDetected); Influenza B PCR Not Detected (NotDetected); Mycoplasma pneumoniae PCR Not Detected (NotDetected); Parainfluenza Virus 1 PCR Not Detected (NotDetected); Parainfluenza Virus 2 PCR Not Detected (NotDetected); Parainfluenza Virus 3 PCR Not Detected (NotDetected); Parainfluenza Virus 4 PCR Not Detected (NotDetected); Respiratory Syncytial VirusPCR Not Detected (NotDetected); Rhinovirus/Enterovirus PCR Not Detected (NotDetected)
[2021-10-05] MEDS ORDERED: ONDANSETRON INJ 2 MG/ML 2 ML VIAL IV PRN (14:25)
[2021-10-05] MEDS ORDERED: POLYETHYLENE (MIRALAX) 17 GM PACK PO PRN (14:25)
[2021-10-05] MEDS: ALBUT/IPRATROP 3MG/0.5MG NEB 3 ML VIAL NEB SCH ×3 (14:46→22:19)
[2021-10-05] MEDS: MAGNESIUM SULFATE / D5W 1 GM/100 ML BAG IV SCH ×3 (16:03→20:20)
[2021-10-05] MEDS: SODIUM CHLORIDE 0.9% 1000ML 1,000 ML IV SCH (16:03)
[2021-10-05] MEDS: NICOTINE 14 MG/24 HR PATCH TD SCH (16:03)
[2021-10-05] MEDS: ACETAMINOPHEN 325 MG TAB PO PRN (18:50)
[2021-10-05] MEDS: FORMOTEROL 20 MCG/2 ML VIAL INH SCH (20:00)
[2021-10-05] MEDS: BUDESONIDE 0.5 MG/2 ML VIAL (PULMICORT) NEB SCH (20:00)
[2021-10-05] MEDS: ENOXAPARIN INJ 30 MG/0.3 ML SYR SQ SCH (20:30)
[2021-10-05] MEDS: guaiFENesin 600 MG TABCR PO SCH (20:30)
[2021-10-05] MEDS: methylPREDNISolone 40 MG in SYRINGE 0 ML IV SCH (22:29)
[2021-10-06] MEDS: ACETAMINOPHEN 325 MG TAB PO PRN (03:41)
[2021-10-06] MEDS: SODIUM CHLORIDE 0.9% 1000ML 1,000 ML IV SCH ×2 (03:42→16:01)
[2021-10-06] MEDS: ALBUT/IPRATROP 3MG/0.5MG NEB 3 ML VIAL NEB SCH ×6 (04:45→22:30)
[2021-10-06 07:10] LABS: Hematocrit (blood only) 35.3 % (34.1-44.9); Hemoglobin 11.7 g/dl (12.0-16.0); Mean Corpuscular Hemoglobin 29.3 pg (25.0-34.0); Mean Corpuscular Hgb Conc 33.1 g/dL (32.0-36.0); Mean Corpuscular Volume 88.3 fL (80.0-100.0); Mean Platelet Volume 9.8 fL (9.4-12.3); Platelet Count 181 K/uL (130-400); RDW Coefficient of Variation 14.7 % (11.5-14.5); RDW Standard Deviation 48.1 fL (36.4-46.3); White Blood Count 4.95 K/ul (4.8-10.8)
[2021-10-06] MEDS: FORMOTEROL 20 MCG/2 ML VIAL INH SCH ×2 (07:12→19:15)
[2021-10-06] MEDS: BUDESONIDE 0.5 MG/2 ML VIAL (PULMICORT) NEB SCH ×2 (07:12→19:15)
[2021-10-06 07:31] LABS: BUN Creatinine Ratio 23.8 (10-20); Calcium 8.2 mg/dl (8.5-10.1); Creatinine Clr Calc Pharmacy 73.7 ml/min; Est GFR (African American) 122.9 ml/min; Est GFR (Non-African American) 106.1 ml/min; Magnesium 1.9 mg/dl (1.7-2.4); Potassium 4.6 mmol/L (3.5-5.1)
[2021-10-06 07:43] LABS: Immature Granulocytes # (auto) 0.02 K/uL (0.00-0.02); Immature Granulocytes % (auto) 0.4 %; Lymphocytes # (auto) 0.23 K/uL (1.2-3.4); Lymphocytes % (auto) 4.6 %; Monocytes # (auto) 0.15 K/uL (0.24-0.82); Neutrophils # (auto) 4.55 K/uL (1.4-6.5)
[2021-10-06] MEDS: AZITHROMYCIN 250 MG TAB PO SCH (09:44)
[2021-10-06] MEDS: CYANOCOBALAMIN (B-12) 500 MCG TABLET PO SCH (09:44)
[2021-10-06] MEDS: THIAMINE HCL 100 MG TAB PO SCH (09:45)
[2021-10-06] MEDS: guaiFENesin 600 MG TABCR PO SCH ×2 (09:45→20:09)
[2021-10-06] MEDS: MULTIVITAMIN TAB PO SCH (09:46)
[2021-10-06] MEDS: NICOTINE 14 MG/24 HR PATCH TD SCH (09:48)
[2021-10-06] MEDS: methylPREDNISolone 40 MG in SYRINGE 0 ML IV SCH ×2 (09:48→20:09)
[2021-10-06] MEDS: FAMOTIDINE 20 MG in SYRINGE 3 ML IV SCH (09:55)
--- NOTE | 2021-10-06 10:04 | Hospitalist Progress Note ---
Date of Service October 06, 2021 Assessment & Plan (1) COPD exacerbation: Plan: Acute on chronic COPD - CT-A/P:1. There is no evidence of pulmonary embolus in the left main, lobar, or segmental pulmonary arteries.2. Advanced emphysema with chronic and postopera tive changes including right-sided pneumonectomy as above.3. There is no airspace consolidation typical for pneumonia or left pleural effusion.4. A 7 mm left upper lobe nodular opacity is new from prior studies. This is pathologically indeterminant and attention at follow-up is recommended.5. Cirrhotic liver morphology.6. Additional findings as above. No PFTs available for review Trace end expiratory wheeze which clears 10/06 Moderate to poor air movement,? Increase in wheezing with improved air movement compared to admission Continue Solu-Medrol 40 mg twice daily Continue azithromycin 250 mg, for 5-day course Continue Brovana/Pulmicort DuoNebs as needed O2 sats at baseline, continue to follow (2) Hyponatremia: Plan: -She has a prior diagnosis of chronic SIADH but does not appear to be on any chronic medications for this -urine studies in 2019 support this diagnosis. Serum sodium 131. Serum osmolality 275. Urine osmolality 520, urine random sodium 78. Consistent with SIADH. Previously has resolved with saline with suspected poor oral intake, and has improved overnight with gentle IVF inconsistent with SIADH. Was placed on supplemental saline 80 cc/h on admission and with slight improvement to 131, will discontinue this evening encourage p.o., and follow BMP tomorrow. (3) Hypomagnesemia: Plan: Magnesium level 1.4 --> normalized w repletion trend (4) Abnormal CT scan, chest: Plan: - Stable left lower pleural nodule on CT Current CT shows a new 7 mm left upper lobe nodule not previously present. Repeat CT in approximately 3 months. Patient is not a surgical candidate, and high risk for biopsy at this time. (5) Tobacco use disorder: Plan: Nicotine patch -continue smoking cessation advise (6) Protein calorie malnutrition: Plan: Suspect secondary to advanced COPD with ongoing tobacco use Boostrix ordered (7) Chronic reflux esophagitis: Plan: Not on any chronic medication for this however having epigastric pain on examination. Start famotidine 20 mg IV daily while on steroids (8) B12 deficiency: Plan: Continue cyanocobalamin 1000 mcg p.o. daily (9) Thiamine deficiency: Plan: Continue vitamin B1 100 mg p.o. daily (10) Depression: Plan: Continue mirtazapine 7.5 mg p.o. at bedtime Plan VTE prophylaxis - Lovenox 30 mg subcu daily Diet - regular, easy to chew due to previous choking episodes Disposition - admit to [facility] Admission and Anticipated Discharge Date Admission Date: October 05, 2021 Subjective Seen at the bedside today. Some shortness of breath with exertion, none at rest. Currently on 1.5 L, home baseline is 2 L of oxygen. Minimal wheezing, she notes that just feels like it came on more suddenly and with less productive cough/wheezing than when she had pneumonia but still feels tired and overall poor.No fever, chills, sweats overnight. Does report that she felt that she had chills and sweats the evening prior to admission and these have improved. Tobacco use prior to admission, is doing okay on the patch. Trying to quit again, support provided. No chest pain/chest pressure/abdominal pain/nausea/vomiting this morning Review of Systems Review of Systems: All systems reviewed & are unremarkable except as noted in Subjective Physical Exam Physical Exam: General: A&Ox3. NAD. Cooperative. HEENT: Atraumatic, normocephalic. Pulm: Absent breath sounds in right lower lobe, radiating breath sounds in right upper lobe. Left lungs with trace end expiratory wheezes, no crackles symmetrical chest rise. No increase in work of breathing. No respiratory distress. Cardiac: RRR, -mrg. Radial pulses intact and symmetrical. Abdominal: Really tender at epigastrium, nonradiating, nonrigid Results & Data Results & Data ([facility]) Vital Signs (Past 12 Hours) Vital Signs Temp Pulse Resp BP Pulse Ox O2 Del Method O2 Flow Rate 10/06/21 07:52 Nasal Cannula 1.5 10/06/21 08:15 36.5 C 86 16 113/63 97 10/06/21 07:12 87 18 97 Nasal Cannula 2 10/05/21 22:31 36.5 C 89 22 112/69 99 Nasal Cannula 2 10/05/21 22:21 89 96 Nasal Cannula 2 PG Care Time/CCT Total # of Minutes Spent Total Time Spent with Patient: Total time spent is greater than 50% in coordination of care (as documented) at patient's floor/unit and/or counseling patient: Coding Level of Care Code 87391 Subseq Hosp Care Lvl 2 Diagnoses COPD exacerbation J44.1 Hyponatremia E87.[address] scan, chest R93.89 Tobacco use disorder F17.200 Protein calorie malnutrition E46 Chronic reflux esophagitis K21.0 B12 deficiency E53.8 Thiamine deficiency E51.9 Depression F32.9
[2021-10-06] MEDS: ENOXAPARIN INJ 30 MG/0.3 ML SYR SQ SCH (19:50)
[2021-10-07] MEDS: MELATONIN 3 MG TAB PO PRN (00:09)
[2021-10-07] MEDS: ACETAMINOPHEN 325 MG TAB PO PRN ×2 (00:09→12:02)
[2021-10-07] MEDS: ALBUT/IPRATROP 3MG/0.5MG NEB 3 ML VIAL NEB SCH ×6 (03:07→22:36)
[2021-10-07] MEDS: SODIUM CHLORIDE 0.9% 1000ML 1,000 ML IV SCH ×2 (04:34→16:27)
[2021-10-07] MEDS: BUDESONIDE 0.5 MG/2 ML VIAL (PULMICORT) NEB SCH ×2 (07:20→19:29)
[2021-10-07] MEDS: FORMOTEROL 20 MCG/2 ML VIAL INH SCH ×2 (07:20→19:29)
[2021-10-07] MEDS: NICOTINE 14 MG/24 HR PATCH TD SCH (09:22)
[2021-10-07] MEDS: THIAMINE HCL 100 MG TAB PO SCH (09:25)
[2021-10-07] MEDS: guaiFENesin 600 MG TABCR PO SCH ×2 (09:25→19:38)
[2021-10-07] MEDS: MULTIVITAMIN TAB PO SCH (09:25)
[2021-10-07] MEDS: CYANOCOBALAMIN (B-12) 500 MCG TABLET PO SCH (09:26)
[2021-10-07] MEDS: AZITHROMYCIN 250 MG TAB PO SCH (09:26)
[2021-10-07] MEDS: methylPREDNISolone 40 MG in SYRINGE 0 ML IV SCH ×2 (09:33→19:39)
[2021-10-07] MEDS: FAMOTIDINE 20 MG in SYRINGE 3 ML IV SCH (09:33)
[2021-10-07] MEDS ORDERED: KETOCONAZOLE 2% CR 15 GM TUBE EXT PRN (09:49)
[2021-10-07] MEDS ORDERED: TRIAMCINOLONE ACET 0.1% OINT 15 GM TUBE EXT PRN (09:49)
--- NOTE | 2021-10-07 15:23 | Hospitalist Progress Note ---
Date of Service October 07, 2021 Assessment & Plan (1) COPD exacerbation: Plan: Acute on chronic COPD - CT-A/P:1. There is no evidence of pulmonary embolus in the left main, lobar, or segmental pulmonary arteries.2. Advanced emphysema with chronic and postopera tive changes including right-sided pneumonectomy as above.3. There is no airspace consolidation typical for pneumonia or left pleural effusion.4. A 7 mm left upper lobe nodular opacity is new from prior studies. This is pathologically indeterminant and attention at follow-up is recommended.5. Cirrhotic liver morphology.6. Additional findings as above. No PFTs available for review Inspiratory and trace end expiratory wheezes 10/07, improved air movement. Continue Solu-Medrol 40 mg twice daily, narrowed to daily tomorrow Continue azithromycin 250 mg, for 5-day course Continue Brovana/Pulmicort DuoNebs as needed O2 sats at baseline, continue to follow (2) Hyponatremia: Plan: -She has a prior diagnosis of chronic SIADH but does not appear to be on any chronic medications for this -urine studies in 2019 support this diagnosis. Serum sodium 131. Serum osmolality 275. Urine osmolality 520, urine random sodium 78. Consistent with SIADH. Previously has resolved with saline with suspected poor oral intake, and has improved overnight with gentle IVF inconsistent with SIADH. Was placed on supplemental saline 80 cc/h on admission and with slight improvement to 131 Repeat BMP pending (3) Hypomagnesemia: Plan: Magnesium level 1.4 --> normalized w repletion trend (4) Abnormal CT scan, chest: Plan: - Stable left lower pleural nodule on CT Current CT shows a new 7 mm left upper lobe nodule not previously present. Repeat CT in approximately 3 months. Patient is not a surgical candidate, and high risk for biopsy at this time. (5) Tobacco use disorder: Plan: Nicotine patch -continue smoking cessation advise (6) Protein calorie malnutrition: Plan: Suspect secondary to advanced COPD with ongoing tobacco use Boostrix ordered (7) Chronic reflux esophagitis: Plan: Not on any chronic medication for this however having epigastric pain on examination. Pepcid continued, epigastric pain improved but not resolved 10/07 (8) B12 deficiency: Plan: Continue cyanocobalamin 1000 mcg p.o. daily (9) Thiamine deficiency: Plan: Continue vitamin B1 100 mg p.o. daily (10) Depression: Plan: Continue mirtazapine 7.5 mg p.o. at bedtime (11) Tinea pedis: Plan VTE prophylaxis - Lovenox 30 mg subcu daily Diet - regular, easy to chew due to previous choking episodes Disposition - admit to [facility] Admission and Anticipated Discharge Date Admission Date: October 05, 2021 Subjective Seen at bedside this morning. Reports that she is breathing a little bit more, still feels fatigued. Aware steroids are being down titrated. She felt a little cold last night and endorses that she has intermittent sweats at baseline for many years, but has no new change in fevers or sweats. No nausea/vomiting/diarrhea. No chest pain or chest pressure. Some shortness of breath with exertion, none at time of assessment but she reports that she does get a little bit when she talks more and endorses mild shortness of breath at end of conversation. Does endorse that she has had some itchy red rash on her feet bilaterally.. Review of Systems Review of Systems: All systems reviewed & are unremarkable except as noted in Subjective Physical Exam Physical Exam: General: A&Ox3. NAD. Cooperative. HEENT: Atraumatic, normocephalic. Pulm: Absent breath sounds in right lower lobe, nonradiating sounds appreciated in right upper field. Left lungs with inspiratory wheeze, and trace end expiratory wheezing today. No crackles. Moderate air movement today with slightly prolonged expiration. No respiratory distress. Cardiac: RRR, -mrg. Radial pulses intact and symmetrical. Abdominal: Minimally tender at epigastrium, nonradiating, nonrigid Extremities: Feet with scaling mildly erythematous lesions with satellite overlying the dorsum and at the third/fourth/fifth interdigital spaces bilateral ly. Pruritic. No ascending erythema. Sensation intact to soft touch in both feet, PT pulses intact bilaterally. Results & Data Results & Data ([facility]) Vital Signs (Past 12 Hours) Vital Signs Temp Pulse Resp BP Pulse Ox O2 Del Method O2 Flow Rate 10/07/21 14:48 98 H 20 98 Nasal Cannula 2 10/07/21 11:03 86 18 98 Nasal Cannula 2 10/07/21 09:25 Nasal Cannula 1.5 10/07/21 07:48 36.4 C L 86 16 108/65 99 10/07/21 07:21 82 18 98 Nasal Cannula 2 PG Care Time/CCT Total # of Minutes Spent Total Time Spent with Patient: Total time spent is greater than 50% in coordination of care (as documented) at patient's floor/unit and/or counseling patient: Coding Level of Care Code 75619 Subseq Hosp Care Lvl 2 Diagnoses COPD exacerbation J44.1 Hyponatremia E87.[address] scan, chest R93.89 Tobacco use disorder F17.200 Protein calorie malnutrition E46 Chronic reflux esophagitis K21.0 B12 deficiency E53.8 Thiamine deficiency E51.9 Depression F32.9 Tinea pedis B35.3
[2021-10-07 16:18] LABS: BUN Creatinine Ratio 17.6 (10-20); Calcium 8.6 mg/dl (8.5-10.1); Creatinine Clr Calc Pharmacy 45.5 ml/min; Est GFR (African American) 104.9 ml/min; Est GFR (Non-African American) 90.5 ml/min; Potassium 4.2 mmol/L (3.5-5.1)
[2021-10-07] MEDS: UMECLIDINIUM BROMIDE 62.5MCG/BLISTER 7 PUFFS/INHALER INH SCH (17:49)
--- NOTE | 2021-10-07 18:38 | XRay Report ---
XR chest 1V portable CLINICAL HISTORY: worsened dyspnea COMPARISON STUDY: Chest radiograph and chest CT October 05, 2021. FINDINGS: Appearance of the right pneumonectomy is unchanged. No pneumothorax or pleural effusion is present. Emphysema within the left lung is better depicted on prior chest CT. No consolidation is chava ntified to suggest pneumonia. Left infrahilar opacity likely corresponds to lingular opacity which fa vors scarring. This is unchanged. IMPRESSION: 1. No acute cardiopulmonary findings. No change in appearance of the chest. 2. Stable findings following right pneumonectomy. 3. Emphysema. ACT 112: Negative or not required by law. Electronically signed by: Rao Carrizales M.D. 10/07/2021 6:36 PM
[2021-10-07] MEDS: ENOXAPARIN INJ 30 MG/0.3 ML SYR SQ SCH (19:40)
[2021-10-08] MEDS: ACETAMINOPHEN 325 MG TAB PO PRN ×2 (01:34→15:25)
[2021-10-08] MEDS: MELATONIN 3 MG TAB PO PRN (01:35)
[2021-10-08] MEDS: ALBUT/IPRATROP 3MG/0.5MG NEB 3 ML VIAL NEB SCH ×6 (02:19→22:09)
[2021-10-08] MEDS: ZOLPIDEM TARTRATE 5 MG TAB PO PRN ×2 (03:14→22:24)
[2021-10-08 06:24] LABS: Hematocrit (blood only) 32.7 % (34.1-44.9); Hemoglobin 10.6 g/dl (12.0-16.0); Immature Granulocytes # (auto) 0.02 K/uL (0.00-0.02); Immature Granulocytes % (auto) 0.3 %; Lymphocytes % (auto) 5.2 %; Mean Corpuscular Hgb Conc 32.4 g/dL (32.0-36.0); Mean Corpuscular Volume 89.3 fL (80.0-100.0); Monocytes # (auto) 0.37 K/uL (0.24-0.82); Monocytes % (auto) 6.4 %; Neutrophils # (auto) 5.12 K/uL (1.4-6.5); Neutrophils % (auto) 88.1 %; Platelet Count 165 K/uL (130-400); RDW Coefficient of Variation 15.2 % (11.5-14.5); RDW Standard Deviation 50.4 fL (36.4-46.3); Red Blood Count 3.66 M/uL (3.93-5.22); White Blood Count 5.81 K/ul (4.8-10.8)
[2021-10-08 06:45] LABS: BUN Creatinine Ratio 23.1 (10-20); Calcium 8.3 mg/dl (8.5-10.1); Creatinine Clr Calc Pharmacy 79.3 ml/min; Est GFR (Non-African American) 108.7 ml/min; Potassium 4.2 mmol/L (3.5-5.1)
[2021-10-08] MEDS: BUDESONIDE 0.5 MG/2 ML VIAL (PULMICORT) NEB SCH ×2 (07:14→19:08)
[2021-10-08] MEDS: FORMOTEROL 20 MCG/2 ML VIAL INH SCH ×2 (07:14→19:07)
[2021-10-08] MEDS: CYANOCOBALAMIN (B-12) 500 MCG TABLET PO SCH (08:56)
[2021-10-08] MEDS: guaiFENesin 600 MG TABCR PO SCH ×2 (08:56→20:19)
[2021-10-08] MEDS: THIAMINE HCL 100 MG TAB PO SCH (08:56)
[2021-10-08] MEDS: AZITHROMYCIN 250 MG TAB PO SCH (08:56)
[2021-10-08] MEDS: MULTIVITAMIN TAB PO SCH (08:56)
[2021-10-08] MEDS: methylPREDNISolone 40 MG in SYRINGE 0 ML IV SCH ×2 (08:57→20:20)
[2021-10-08] MEDS: UMECLIDINIUM BROMIDE 62.5MCG/BLISTER 7 PUFFS/INHALER INH SCH (08:57)
[2021-10-08] MEDS: NICOTINE 14 MG/24 HR PATCH TD SCH (08:58)
[2021-10-08] MEDS: FAMOTIDINE 20 MG in SYRINGE 3 ML IV SCH (08:59)
[2021-10-08] MEDS ORDERED: TIOTROPIUM BROMIDE 5 PUFF/90 MCG INH INH SCH (09:00)
--- NOTE | 2021-10-08 10:30 | Hospitalist Progress Note ---
Date of Service October 08, 2021 Assessment & Plan (1) COPD exacerbation: Plan: Acute on chronic COPD - CT-A/P:1. There is no evidence of pulmonary embolus in the left main, lobar, or segmental pulmonary arteries.2. Advanced emphysema with chronic and postopera tive changes including right-sided pneumonectomy as above.3. There is no airspace consolidation typical for pneumonia or left pleural effusion.4. A 7 mm left upper lobe nodular opacity is new from prior studies. This is pathologically indeterminant and attention at follow-up is recommended.5. Cirrhotic liver morphology.6. Additional findings as above. No PFTs available for review Inspiratory and trace end expiratory wheezes 10/07, improved air movement. Solu-Medrol 40 mg twice daily. Patient did have worsening yesterday, will defer narrowing to daily until tomorrow and continue twice daily IV steroids today CXR without evidence of acute pneumonia, consistent with emphysema Continue azithromycin 250 mg, for 5-day course Continue Brovana/Pulmicort DuoNebs as needed O2 sats at baseline, continue to follow (2) Hyponatremia: Plan: -She has a prior diagnosis of chronic SIADH but does not appear to be on any chronic medications for this -urine studies in 2019 support this diagnosis. Serum sodium 131. Serum osmolality 275. Urine osmolality 520, urine random sodium 78. Consistent with SIADH. Previously has resolved with saline with suspected poor oral intake, and has improved overnight with gentle IVF inconsistent with SIADH. Has improved to 134, fluids discontinued (3) Hypomagnesemia: Plan: Magnesium level 1.4 --> normalized w repletion trend (4) Abnormal CT scan, chest: Plan: - Stable left lower pleural nodule on CT Current CT shows a new 7 mm left upper lobe nodule not previously present. [place] follow-up once through COPD exacerbation, repeat CT in approximately 3 months. Patient is not a surgical candidate, and high risk for biopsy at this time. (5) Tobacco use disorder: Plan: Nicotine patch -continue smoking cessation advise (6) Protein calorie malnutrition: Plan: Suspect secondary to advanced COPD with ongoing tobacco use Boostrix ordered (7) Chronic reflux esophagitis: Plan: Not on any chronic medication for this however having epigastric pain on examination. Pepcid continued, epigastric pain improved but not resolved 10/07 (8) B12 deficiency: Plan: Continue cyanocobalamin 1000 mcg p.o. daily (9) Thiamine deficiency: Plan: Continue vitamin B1 100 mg p.o. daily (10) Depression: Plan: Continue mirtazapine 7.5 mg p.o. at bedtime (11) Tinea pedis: Plan VTE prophylaxis - Lovenox 30 mg subcu daily Diet - regular, easy to chew due to previous choking episodes Disposition - admit to [facility] Admission and Anticipated Discharge Date Admission Date: October 05, 2021 Subjective Feels worse than her baseline, but improved from her sudden worsening yesterday. Still has some inspiratory wheezing, but overall feels a little bit better than yesterday. No lightheadedness, dizziness. No chest pain, chest pressure. No nausea/vomiting. No fever/chills/sweats overnight. Has been bringing up more mucus since using the flutter valve and incentive spirometer. Review of Systems Review of Systems: All systems reviewed & are unremarkable except as noted in Subjective Physical Exam Physical Exam: General: A&Ox3. NAD. Cooperative. HEENT: Atraumatic, normocephalic. Pulm: Absent breath sounds in right lower lobe, absent sounds but with some radiating sounds appreciated in right upper field. Left lungs with inspiratory wheeze. No crackles. Moderate air movement. No respiratory distress. Cardiac: RRR, -mrg. Radial pulses intact and symmetrical. Abdominal: Minimally tender at epigastrium, nonradiating, nonrigid Extremities: Feet with scaling mildly erythematous lesions with satellite overlying the dorsum and at proximal toes bilaterally. Pruritus improved no ascending erythema. Sensation intact to soft touch in both feet, PT pulses intact bilaterally. Results & Data Results & Data ([facility]) Vital Signs (Past 12 Hours) Vital Signs Temp Pulse Resp BP Pulse Ox O2 Del Method O2 Flow Rate 10/08/21 07:30 Nasal Cannula 2 10/08/21 07:32 36.7 C 85 18 126/71 98 Nasal Cannula 2 10/08/21 07:16 86 18 99 Nasal Cannula 2 10/07/21 23:28 36.4 C L 99 H 15 121/69 98 Nasal Cannula 2 10/07/21 22:37 99 H 22 98 Nasal Cannula 2 PG Care Time/CCT Total # of Minutes Spent Total Time Spent with Patient: Total time spent is greater than 50% in coordination of care (as documented) at patient's floor/unit and/or counseling patient: Coding Level of Care Code 70723 Subseq Hosp Care Lvl 2 Diagnoses COPD exacerbation J44.1 Hyponatremia E87.[address] scan, chest R93.89 Tobacco use disorder F17.200 Protein calorie malnutrition E46 Chronic reflux esophagitis K21.0 B12 deficiency E53.8 Thiamine deficiency E51.9 Depression F32.9 Tinea pedis B35.3
[2021-10-08] MEDS: ENOXAPARIN INJ 30 MG/0.3 ML SYR SQ SCH (20:18)
[2021-10-08] MEDS: MIRTAZAPINE TAB 15 MG TAB PO SCH (20:19)
[2021-10-09] MEDS: ALBUT/IPRATROP 3MG/0.5MG NEB 3 ML VIAL NEB SCH ×6 (02:21→22:56)
[2021-10-09] MEDS: BUDESONIDE 0.5 MG/2 ML VIAL (PULMICORT) NEB SCH ×2 (07:08→19:19)
[2021-10-09] MEDS: FORMOTEROL 20 MCG/2 ML VIAL INH SCH ×2 (07:08→19:19)
[2021-10-09] MEDS: MULTIVITAMIN TAB PO SCH (08:31)
[2021-10-09] MEDS: guaiFENesin 600 MG TABCR PO SCH ×2 (08:31→20:35)
[2021-10-09] MEDS: UMECLIDINIUM BROMIDE 62.5MCG/BLISTER 7 PUFFS/INHALER INH SCH (08:31)
[2021-10-09] MEDS: AZITHROMYCIN 250 MG TAB PO SCH (08:32)
[2021-10-09] MEDS: NICOTINE 14 MG/24 HR PATCH TD SCH (08:32)
[2021-10-09] MEDS: predniSONE 20 MG TAB PO SCH (08:32)
[2021-10-09] MEDS: THIAMINE HCL 100 MG TAB PO SCH (08:32)
[2021-10-09] MEDS: CYANOCOBALAMIN (B-12) 500 MCG TABLET PO SCH (08:32)
--- NOTE | 2021-10-09 12:13 | Hospitalist Progress Note ---
Date of Service October 09, 2021 Assessment & Plan (1) COPD exacerbation: Plan: Acute on chronic COPD - CT-A/P:1. There is no evidence of pulmonary embolus in the left main, lobar, or segmental pulmonary arteries.2. Advanced emphysema with chronic and postopera tive changes including right-sided pneumonectomy as above.3. There is no airspace consolidation typical for pneumonia or left pleural effusion.4. A 7 mm left upper lobe nodular opacity is new from prior studies. This is pathologically indeterminant and attention at follow-up is recommended.5. Cirrhotic liver morphology.6. Additional findings as above. No PFTs available for review Solu-Medrol 40 mg twice daily. Patient did have worsening yesterday, will defer narrowing to daily until tomorrow and continue twice daily IV steroids today CXR without evidence of acute pneumonia, consistent with emphysema Continue azithromycin 250 mg, for 5-day course Continue Brovana/Pulmicort Steroids gradually weaned, BID--> daily delayed 10/08 for episode of worsening, and then resumed to daily on 10/09. DuoNebs as needed O2 sats at baseline, continue to follow 10/09 her oxygen requirements have returned to baseline, however she continues to be more dyspneic with exertion and still feels that she is only 50-70% better, but gradually improving daily. Does not feel ready for discharge clinically, and is at high risk for treatment failure with significant underly ing disease burden. Will continue observation today, continue prednisone, if worsening episodes can increase dose/extended taper. If doing well, convert to slow taper tomorrow (2) Hyponatremia: Plan: -She has a prior diagnosis of chronic SIADH but does not appear to be on any chronic medications for this -urine studies in 2019 support this diagnosis. Serum sodium 131. Serum osmolality 275. Urine osmolality 520, urine random sodium 78. Consistent with SIADH. Previously has resolved with saline with suspected poor oral intake, and has improved overnight with gentle IVF inconsistent with SIADH. Has improved to 134, fluids discontinued (3) Hypomagnesemia: Plan: Magnesium level 1.4 --> normalized w repletion trend (4) Abnormal CT scan, chest: Plan: - Stable left lower pleural nodule on CT Current CT shows a new 7 mm left upper lobe nodule not previously present. follow-up once through COPD exacerbation, repeat CT in approximately 3 months. Patient is not a surgical candidate, and high risk for biopsy at this time. (5) Tobacco use disorder: Plan: Nicotine patch -continue smoking cessation advise (6) Protein calorie malnutrition: Plan: Severe protein-calorie malnutrition, BMI 13.6 -severe muscle loss to the clavicle region and temples, eating 1 meal/day at baseline, 18.2% weight loss in 6 months". -Suspect secondary to advanced COPD with ongoing tobacco use - Continue boost, vitamin supplementation (7) Chronic reflux esophagitis: Plan: Not on any chronic medication for this however having epigastric pain on examination. Pepcid continued, epigastric pain improved but not resolved 10/07 (8) B12 deficiency: Plan: Continue cyanocobalamin 1000 mcg p.o. daily (9) Thiamine deficiency: Plan: Continue vitamin B1 100 mg p.o. daily (10) Depression: Plan: Continue mirtazapine 7.5 mg p.o. at bedtime (11) Tinea pedis: Plan VTE prophylaxis - Lovenox 30 mg subcu daily Diet - regular, easy to chew due to previous choking episodes Disposition - admit to [facility] Admission and Anticipated Discharge Date Admission Date: October 05, 2021 Dennis Reyes is seen at the bedside. Her oxygen levels at rest have returned to near baseline, but she still feels significantly worse than her baseline and notes that she becomes short of breath with minimal exertion and speaking. She does feel she is gradually improving, and that this is similar to bad exacerbations in the past, but is worried that they have taken time to break and that she will go home and potentially have to come back as has happened previously. She is not having chest pain, chest pressure, lightheadedness, dizziness, fever, chills today. She is tolerating breakfast. Review of Systems Review of Systems: All systems reviewed & are unremarkable except as noted in Subjective Physical Exam Physical Exam: General: A&Ox3. NAD. Cooperative. Cachectic. HEENT: Atraumatic, normocephalic. Pulm: Absent breath sounds in right lower lobe, absent sounds but with some rad iating sounds appreciated in right upper field. Left lungs with inspiratory wheeze significantly improved from 10/08. No crackles. Moderate air movement. No respiratory distress. Cardiac: RRR, -mrg. Radial pulses intact and symmetrical. Abdominal: Minimally tender at epigastrium, nonradiating, nonrigid Extremities: Feet with scaling mildly erythematous lesions with satellite overlying the dorsum and at proximal toes bilaterally; continue to improve from prior. Pruritus improved. Sensation intact to soft touch in both feet, PT pulses intact bilaterally. Results & Data Results & Data ([facility]) Vital Signs (Past 12 Hours) Vital Signs Temp Pulse Resp BP Pulse Ox O2 Del Method O2 Flow Rate 10/09/21 10:58 97 H 16 100 Nasal Cannula 2 10/09/21 07:28 36.7 C 96 H 18 128/75 96 Nasal Cannula 2 10/09/21 07:09 96 H 16 100 Nasal Cannula 2 10/09/21 02:21 94 H 18 92 PG Care Time/CCT Total # of Minutes Spent Total Time Spent with Patient: Total time spent is greater than 50% in coordination of care (as documented) at patient's floor/unit and/or counseling patient: Coding Level of Care Code 00052 Subseq Hosp Care Lvl 2 Diagnoses COPD exacerbation J44.1 Hyponatremia E87.1 [address]om[address]es[address] scan, chest R93.89 Tobacco use disorder F17.200 Protein calorie malnutrition E46 Chronic reflux esophagitis K21.0 B12 deficiency E53.8 Thiamine deficiency E51.9 Depression F32.9 Tinea pedis B35.3
[2021-10-09 13:03] LABS: Hematocrit (blood only) 38.4 % (34.1-44.9); Hemoglobin 12.3 g/dl (12.0-16.0); Mean Corpuscular Hemoglobin 29.6 pg (25.0-34.0); Mean Corpuscular Volume 92.5 fL (80.0-100.0); Mean Platelet Volume 9.5 fL (9.4-12.3); Platelet Count 207 K/uL (130-400); RDW Coefficient of Variation 15.7 % (11.5-14.5); RDW Standard Deviation 53.7 fL (36.4-46.3); Red Blood Count 4.15 M/uL (3.93-5.22); White Blood Count 7.35 K/ul (4.8-10.8)
[2021-10-09 13:28] LABS: BUN Creatinine Ratio 31.1 (10-20); Calcium 9.3 mg/dl (8.5-10.1); Creatinine Clr Calc Pharmacy 68.8 ml/min; Est GFR (African American) 120.2 ml/min; Est GFR (Non-African American) 103.7 ml/min; Potassium 4.5 mmol/L (3.5-5.1)
[2021-10-09 13:36] LABS: Immature Granulocytes # (auto) 0.02 K/uL (0.00-0.02); Immature Granulocytes % (auto) 0.3 %; Lymphocytes # (auto) 0.12 K/uL (1.2-3.4); Lymphocytes % (auto) 1.6 %; Monocytes # (auto) 0.31 K/uL (0.24-0.82); Monocytes % (auto) 4.2 %; Neutrophils % (auto) 93.9 %
[2021-10-09] MEDS: MIRTAZAPINE TAB 15 MG TAB PO SCH (20:35)
[2021-10-09] MEDS: ENOXAPARIN INJ 30 MG/0.3 ML SYR SQ SCH (20:35)
[2021-10-09] MEDS: ZOLPIDEM TARTRATE 5 MG TAB PO PRN (23:05)
[2021-10-10] MEDS: ALBUT/IPRATROP 3MG/0.5MG NEB 3 ML VIAL NEB SCH ×4 (02:54→16:02)
[2021-10-10] MEDS: BUDESONIDE 0.5 MG/2 ML VIAL (PULMICORT) NEB SCH (07:17)
[2021-10-10] MEDS: FORMOTEROL 20 MCG/2 ML VIAL INH SCH (07:17)
--- NOTE | 2021-10-10 07:51 | Hospitalist Progress Note ---
Date of Service October 10, 2021 Assessment & Plan (1) COPD exacerbation: Plan: Acute on chronic COPD - CT-A/P:1. There is no evidence of pulmonary embolus in the left main, lobar, or segmental pulmonary arteries.2. Advanced emphysema with chronic and postopera tive changes including right-sided pneumonectomy as above.3. There is no airspace consolidation typical for pneumonia or left pleural effusion.4. A 7 mm left upper lobe nodular opacity is new from prior studies. This is pathologically indeterminant and attention at follow-up is recommended.5. Cirrhotic liver morphology.6. Additional findings as above. No PFTs available for review Solu-Medrol 40 mg twice daily. Patient did have worsening yesterday, will defer narrowing to daily until tomorrow and continue twice daily IV steroids today CXR without evidence of acute pneumonia, consistent with emphysema Continue azithromycin 250 mg, for 5-day course Continue Brovana/Pulmicort Steroids gradually weaned, BID--> daily delayed 10/08 for episode of worsening, and then resumed to daily on 10/09. DuoNebs as needed O2 sats at baseline, continue to follow 10/09 her oxygen requirements have returned to baseline, however she continues to be more dyspneic with exertion and still feels that she is only 50-70% better, but gradually improving daily. Does not feel ready for discharge clinically, and is at high risk for treatment failure with significant underly ing disease burden. Will continue observation today, continue prednisone, if worsening episodes can increase dose/extended taper. If doing well, convert to slow taper tomorrow (2) Hyponatremia: Plan: -She has a prior diagnosis of chronic SIADH but does not appear to be on any chronic medications for this -urine studies in 2019 support this diagnosis. Serum sodium 131. Serum osmolality 275. Urine osmolality 520, urine random sodium 78. Consistent with SIADH. Previously has resolved with saline with suspected poor oral intake, and has improved overnight with gentle IVF inconsistent with SIADH. Has improved to 134, fluids discontinued (3) Hypomagnesemia: Plan: Magnesium level 1.4 --> normalized w repletion trend (4) Abnormal CT scan, chest: Plan: - Stable left lower pleural nodule on CT Current CT shows a new 7 mm left upper lobe nodule not previously present. follow-up once through COPD exacerbation, repeat CT in approximately 3 months. Patient is not a surgical candidate, and high risk for biopsy at this time. (5) Tobacco use disorder: Plan: Nicotine patch -continue smoking cessation advise (6) Protein calorie malnutrition: Plan: Severe protein-calorie malnutrition, BMI 13.6 -severe muscle loss to the clavicle region and temples, eating 1 meal/day at baseline, 18.2% weight loss in 6 months". -Suspect secondary to advanced COPD with ongoing tobacco use - Continue boost, vitamin supplementation (7) Chronic reflux esophagitis: Plan: Not on any chronic medication for this however having epigastric pain on examination. Pepcid continued, epigastric pain improved but not resolved 10/07 (8) B12 deficiency: Plan: Continue cyanocobalamin 1000 mcg p.o. daily (9) Thiamine deficiency: Plan: Continue vitamin B1 100 mg p.o. daily (10) Depression: Plan: Continue mirtazapine 7.5 mg p.o. at bedtime (11) Tinea pedis: Plan VTE prophylaxis - Lovenox 30 mg subcu daily Diet - regular, easy to chew due to previous choking episodes Disposition - admit to [facility] Admission and Anticipated Discharge Date Admission Date: October 05, 2021 Results & Data Results & Data ([facility]) Vital Signs (Past 12 Hours) Vital Signs Temp Pulse Resp BP Pulse Ox O2 Del Method O2 Flow Rate 10/10/21 07:27 97.9 F 89 16 128/74 100 Nasal Cannula 2 10/10/21 07:17 96 H 18 98 Nasal Cannula 2 10/09/21 23:18 105 H 18 94 Nasal Cannula 2 10/09/21 22:47 97.9 F 95 H 18 121/71 97 Nasal Cannula 2.0 PG Care Time/CCT Total # of Minutes Spent Total Time Spent with Patient: Total time spent is greater than 50% in coordination of care (as documented) at patient's floor/unit and/or counseling patient: Coding Diagnoses COPD exacerbation J44.1 Hyponatremia E87.[address] scan, chest R93.89 Tobacco use disorder F17.200 Protein calorie malnutrition E46 Chronic reflux esophagitis K21.0 B12 deficiency E53.8 Thiamine deficiency E51.9 Depression F32.9 Tinea pedis B35.3
[2021-10-10] MEDS: predniSONE 20 MG TAB PO SCH (08:56)
[2021-10-10] MEDS: UMECLIDINIUM BROMIDE 62.5MCG/BLISTER 7 PUFFS/INHALER INH SCH (08:56)
[2021-10-10] MEDS: THIAMINE HCL 100 MG TAB PO SCH (08:56)
[2021-10-10] MEDS: CYANOCOBALAMIN (B-12) 500 MCG TABLET PO SCH (08:56)
[2021-10-10] MEDS: MULTIVITAMIN TAB PO SCH (08:56)
[2021-10-10] MEDS: NICOTINE 14 MG/24 HR PATCH TD SCH (08:57)
[2021-10-10] MEDS: guaiFENesin 600 MG TABCR PO SCH (08:57)
[2021-10-10 09:14] LABS: Hematocrit (blood only) 37.7 % (34.1-44.9); Immature Granulocytes # (auto) 0.01 K/uL (0.00-0.02); Immature Granulocytes % (auto) 0.2 %; Lymphocytes # (auto) 1.01 K/uL (1.2-3.4); Lymphocytes % (auto) 17.2 %; Mean Corpuscular Hgb Conc 31.8 g/dL (32.0-36.0); Mean Corpuscular Volume 91.1 fL (80.0-100.0); Mean Platelet Volume 9.5 fL (9.4-12.3); Monocytes # (auto) 0.58 K/uL (0.24-0.82); Monocytes % (auto) 9.9 %; Neutrophils # (auto) 4.26 K/uL (1.4-6.5); Neutrophils % (auto) 72.7 %; Platelet Count 197 K/uL (130-400); RDW Coefficient of Variation 15.7 % (11.5-14.5); RDW Standard Deviation 52.7 fL (36.4-46.3); Red Blood Count 4.14 M/uL (3.93-5.22); White Blood Count 5.86 K/ul (4.8-10.8)
[2021-10-10 09:52] LABS: Calcium 8.8 mg/dl (8.5-10.1); Creatinine Clr Calc Pharmacy 61.9 ml/min; Est GFR (African American) 116.1 ml/min; Est GFR (Non-African American) 100.2 ml/min; Potassium 4.3 mmol/L (3.5-5.1)
--- NOTE | 2021-10-10 18:24 | Discharge Summary ---
Date of Service October 10, 2021 Admission HPI Per Admitting Provider Amy Posadas is a 66-year-old female with right pneumonectomy, COPD and chronic hypoxic respiratory failure with baseline 2 L/min O2 requirement who presents to the ER via EMS due to shortness of breath, weakness and lethargy. She reports shortness of breath getting progressively worse for the last 5 days (since Friday). Slight change in her chronic cough -it is currently more scratchy. Associated chest tightness at rest and on exertion for the last 2 days. She denies any choking episodes which have been a problem in the past, no dysphagia or odynophagia. No fevers or chills. She continues to smoke half a pack a day. She reports quitting smoking for 2 months after last admission but went back due to generalized frustration. She does report nebulizer treatment limited helped given by EMS. She previously drank excessive alcohol but denies any alcohol use for the last 6 months. She has not taken any steroids for this exacerbation. Only new medication is Combivent which she started 1 month ago as Spiriva is no longer affordable. In the ER she was noted to have O2 sats to drop to 80% on exertion on her usual 2 L/min therefore she was referred to medicine for admission ongoing management of hypoxia on exertion. Principal Diagnosis copd exacerbation hyponatremia abnormal CT of chest Discharge Exam The patient appeared chronically ill and underweight Vital signs as documented. Head exam is normocephalic atraumatic Neck is without JVD, thyromegaly, or carotid bruits. Lungs poor air movement prolonged expiratory phase Cardiac exam, Rhythm is regular.. No murmurs, rubs or gallops. Discharge Data Allergies Allergy/AdvReac Type Severity Reaction Status Date / Time aspirin Allergy Severe SEVERE Verified 10/05/21 15:29 STOMACH CRAMPING sulfamethoxazole Allergy Severe TONGUE Verified 10/05/21 15:29 SWELLING trimethoprim Allergy Severe TONGUE Verified 10/05/21 15:29 SWELLING Penicillins Allergy Unknown Unknown Verified 10/05/21 15:29 Consultations 10/05/21 10:55 ED Decision to Admit Stat 10/10/21 07:48 Consult Lung Nodule Program Routine Ordered Studies 10/05/21 08:42 CT angio chest PE protocol Stat Hospital Course (1) COPD exacerbation: Acute on chronic COPD - CT-A/P:1. There is no evidence of pulmonary embolus in the left main, lobar, or segmental pulmonary arteries.2. Advanced emphysema with chronic and postoperative changes including right-sided pneumonectomy as above.3. There is no airspace consolidation typical for pneumonia or left pleural effusion.4. A 7 mm left upper lobe nodular opacity is new from prior studies. This is pathologically indeterminant and attention at follow-up is recommended.5. Cirrhotic liver morphology.6. Additional findings as above. No PFTs available for review Steroid taper as an outpatient CXR without evidence of acute pneumonia, consistent with emphysema Continue azithromycin 250 mg, completed Will be home on Trelegy Ellipta As needed short acting beta agonist and DuoNebs as needed 10/09 her oxygen requirements have returned to baseline (2) Hyponatremia: -She has a prior diagnosis of chronic SIADH but does not appear to be on any c hronic medications for this -urine studies in 2019 support this diagnosis. Serum sodium 131. Serum osmolality 275. Urine osmolality 520, urine random sodium 78. Consistent with SIADH. Previously has resolved with saline with suspected poor oral intake, and has improved overnight with gentle IVF inconsistent with SIADH. Has improved to 134, fluids discontinued (3) Hypomagnesemia: Magnesium level 1.4 --> normalized w repletion trend (4) Abnormal CT scan, chest: - Stable left lower pleural nodule on CT Current CT shows a new 7 mm left upper lobe nodule not previously present. follow-up once through COPD exacerbation, repeat CT in approximately 3 months. Patient is not a surgical candidate, and high risk for biopsy at this time. (5) Tobacco use disorder: Nicotine patch -continue smoking cessation advise (6) Protein calorie malnutrition: Severe protein-calorie malnutrition, BMI 13.6 -severe muscle loss to the clavicle region and temples, eating 1 meal/day at baseline, 18.2% weight loss in 6 months". -Suspect secondary to advanced COPD with ongoing tobacco use - Continue boost, vitamin supplementation (7) Chronic reflux esophagitis: Not on any chronic medication for this however having epigastric pain on examination. Pepcid continued, epigastric pain improved but not resolved 10/07 (8) B12 deficiency: Continue cyanocobalamin 1000 mcg p.o. daily (9) Thiamine deficiency: Continue vitamin B1 100 mg p.o. daily (10) Depression: Continue mirtazapine increased to 15 mg p.o. at bedtime (11) Tinea pedis: Total Time Total Time Spent Total Time Spent (In Minutes): It required greater than 30 minutes to prepare this patient for discharge Discharge Plan Discharge Items Patient Disposition: Home - Self-Care Reason For Visit: COPD EXACERBATION Discharge Diagnosis: shortness of breath secondary to copd Activity: Per Instructions section Activity Comment: limit escessive exertion Non-emergency contact: Primary Care Provider and [employer] Call non-emergency contact if: your symptoms worsen Follow-up/Referrals: Mark Luecro MD [Physician] - 10/18/21 8:30 am (Appointment will be with Ayse López PA-C) Temitope Shaikh MD [Primary Care Provider] - 10/19/21 11:30 am Diet: Regular Addtl Attending Provider Instructions: As you recover from your COPD flare up please pace yourself and take frequent breaks taper your prednisone dosing and use inhalers as instructed, follow up with Dr Lucero continue to use your oxygen and your rescur inhalers as needd Pending Studies at Discharge: No Stand-Alone Forms: My [facility] [employer], Smoking Cessation Medications and DC Order Prescriptions: New Trelegy Ellipta 100-62.5-25 mcg blister with device 1 inh inhalation DAILY 30 Days Qty: 60 4RF prednisone 10 mg tablet 40 mg PO UD Qty: 42 0RF Rx Instructions: 4 day x4d-> 3 a day x4 days->2 a day x4 days -> 1 a day Continued albuterol sulfate [ProAir HFA] 90 mcg/actuation HFA aerosol inhaler 2 puff INH .Q4-6HRS PRN (Reason: Shortness Of Breath Or Wheezing) Qty: 18 11RF lorazepam 0.5 mg tablet 0.5 mg PO BID PRN (Reason: muscle spasm or for insomnia) Qty: 30 0RF albuterol sulfate 2.5 mg /3 mL (0.083 %) solution for nebulization 2.5 mg INH QID PRN (Reason: Shortness Of Breath Or Wheezing) Qty: 180 8RF nicotine 7 mg/24 hr Patch 24 Hour 14 mg transdermal QAM Qty: 30 0RF acetaminophen 325 mg Tablet 650 mg PO Q4H PRN (Reason: pain) Qty: 30 0RF guaifenesin [Mucinex] 600 mg tablet extended release 12hr 600 mg PO BID PRN (Reason: Congestion) Rx Instructions: OTC Changed mirtazapine 15 mg tablet 15 mg PO HS Qty: 30 5RF Discontinued arformoterol [Brovana] 15 mcg/2 mL solution for nebulization 2 ml inhalation BID Qty: 120 11RF Rx Instructions: for advanced COPD Combivent Respimat 20-100 mcg/actuation mist 1 puff inhalation Q6H Qty: 4 3RF budesonide [Pulmicort] 0.5 mg/2 mL suspension for nebulization 0.5 mg inhalation BID Qty: 120 11RF Rx Instructions: for advanced COPD Discharge Orders: Discharge Order (Routine); Ordered 10/10/21 Ordered By: Choco Luther/Other Patient Handouts: COPD Using Inhalers, What Is COPD, COPD Quit Smoking, Discharge Instructions: COPD Admission Data Admit Date/Time: 10/05/21 11:28 Attending Provider: Choco Lugo Admit Provider: Michael Holcomb Primary Care Provider: Temitope Shaikh Other Providers: Michael Holcomb Other Interventions: Discharge Summary Assessment (RN) Last Done: 10/10/21 15:08 Coding Level of Care Code D/C DAY MANAGEMENT >30 MINS Diagnoses COPD exacerbation J44.1 Hyponatremia E87.[address] scan, chest R93.89 Tobacco use disorder F17.200 Protein calorie malnutrition E46 Chronic reflux esophagitis K21.0 B12 deficiency E53.8 Thiamine deficiency E51.9 Depression F32.9 Tinea pedis B35.3
[2021-10-10] MEDS ORDERED: MIRTAZAPINE TAB 15 MG TAB PO SCH (21:00)
== END 2021-10-10 17:09 | disposition home or self-care (01) | DRG 190 ==
LOC: ED 07:00 → EDINP 11:28 → SUATTDRO 11:28 → 3W 14:02

== ENCOUNTER 2021-12-20 07:55 | Inpatient (IN) ==
--- NOTE | 2021-12-20 08:04 | Emergency Department Note ---
Impression & Plan Acute respiratory failure with hypoxia and hypercarbia, Acute exacerbation of chronic obstructive pulmonary disease ED Provider Note NAME: PRISCILLA WIGGINS AGE: 66 SEX: F : 1955 ARRIVES VIA: Ambulance INFORMANT: Patient, ED PROVIDER(S): Celso Barnett MD Chief Complaint: Shortness of breath HPI: Patient presents due to concern for shortness of breath which began yesterday and seemed to get progressively worse to where she was severely short of breath around 3 AM this morning. EMS was called and she did receive 4 albuterol treatments. The patient also received 125 of methylprednisolone en route. The patient did try her nebulizer at home with mild improvement in symptoms. Patient does have a prior history of a right-sided pneumonectomy secondary to history of lung cancer which was curative and no longer receives treatment. Patient is still a smoker. The patient does wear 2 L at all times. Patient has had some chest pain but states that it is diffuse and worse with coughing. She describes it as achy. The patient has had a nonproductive cough. Patient denies any leg swelling or calf pain. No history of DVT or PE. Patient denies any vomiting but has had some occasional associated nausea. ROS: See HPI for pertinent positives and negatives. A total of 10 systems were reviewed and otherwise negative. Past medical history: See below Surgical history: See below Social history: See below Physical Exam: GENERAL: Very thin and emaciated. Wearing glasses. Nasal cannula in place. EYE EXAM: Normal conjunctiva. PERRL, no anisocoria and EOM's grossly intact w/o pain. NECK: Supple, no nuchal rigidity, no adenopathy, non-tender. No signs of meningismus. FROM of the neck with good chin to chest and neck extension. No stridor. LUNGS: Decreased breath sounds throughout more prominent in the right chest. Normal chest wall mechanics. HEART: Tachycardic and regular, no MRG. ABDOMEN: Abdomen soft, non-tender, normo-active bowel sounds, no masses, no rebound or guarding. BACK: No CVA TTP. SKIN: No rashes and no bruising. UPPER EXTREMITIES: Upper extremities are grossly normal. LOWER EXTREMITIES: Grossly normal, no edema. Negative Homans' sign bilaterally. NEURO EXAM: A&O x3, cranial nerves II-XII grossly intact, normal speech, moves all 4 extremities. Differential diagnoses: Reactive airway disease, pneumonia, pneumothorax, COPD, CHF, infections, cardiac ischemia, pulmonary embolism, musculoskeletal, gastrointestinal, as well as other pathologies. Course: Patient was seen and evaluated the bedside. Full history physical exam was performed. EKG interpreted by me Sinus tachycardia, rate of 107, normal intervals, normal axis, no ST elevations. Imaging Studies: See Below Cardiac monitoring: An order was placed for continuous cardiac monitoring. The monitor shows a rate of 95 with regular rhythm. MDM: Patient was seen due to concern for shortness of breath. Blood work was obtained along with an EKG troponin chest x-ray VBG. COVID swab also ordered. The patient had already received albuterol treatments and 125 of methylprednisolone. The patient was ordered additional DuoNeb's and magnesium. The patient was also ordered IV fluids. The patient's VBG PCO2 was 110 with a VBG pH of 7.1. Given this concern I did reevaluate the patient who was slightly stuporous. The patient was able to awaken and follow basic commands but given this concern with her acidosis and associated elevated PCO2 do not think that she could just be placed on BiPAP. The decision was made to intubate the patient after I did spend approximately 2 minutes to try and call family to discuss CODE STATUS. I was unable to reach her son and sister who are listed as point of contacts. Patient was subsequently intubated without complication after receiving etomidate and rocuronium. Given that the patient has a prior pneumonectomy I did advise respiratory to use a lower tidal volume but increase her rate given her acidosis. The patient has a normal white count H&H and platelet count. Patient's kidney function is fairly unremarkable. Patient's magnesium and jennifer cium were low and were ordered for replacement. Stat ABG ordered post intubation. Post intubation chest x-ray shows ET tube 6 cm above the donna. I did task respiratory to advance 4 cm. This was completed. The patient was started on fentanyl and Versed drips. Patient did have an OG placed. KUB shows OG within the gastric body. I did speak with on-call associate field service engineer Dr. Faye and subsequently spoke with Trenton Murphy PA-C as well as Dr. Parkinson for medical admission. Patient was admitted to the intensive care unit. I did speak with the patient's son Robson who is not the power of civil litigation attorney after the patient had already been admitted to the intensive care unit. He understood the current situation and critical status of his mother. All questions were answered. Critical Care: I have personally spent 134 minutes of critical care time in direct management of this patient. This includes bedside care, interpretation of diagnostic studies, and testing, discussion with consultants, patient, and family members, and other require inpatient management activities. This 134 minutes is in ex cess of all separately billable procedures. Past Med/Surg History Medical History Abnormal CT scan, gastrointestinal tract Alcoholism B12 deficiency Bilateral kidney stones Chronic obstructive pulmonary disease Chronic reflux esophagitis Chronic respiratory failure Dilation of thoracic aorta Hypomagnesemia Influenza Leukocytosis Lung cancer Osteoporosis Palliative care encounter Pneumonia Pneumonia Protein calorie malnutrition SIADH (syndrome of inappropriate ADH production) Squamous cell carcinoma of lung Unspecified cirrhosis of liver Surgical History History of pneumonectomy S/P lobectomy of lung Family History Father Aortic aneurysm Hypertension Mother COPD (chronic obstructive pulmonary disease) CHF (congestive heart failure) Osteoporosis Renal failure Grandmother Diabetes Grandfather Skin cancer Other Myocardial infarction No pertinent family history in first degree relatives Denies family history of Ovarian cancer Prostate cancer Breast cancer Colorectal cancer Social History Smoking Status: Current every day smoker Tobacco Type: Cigarettes Cigarettes Per Day: 1/2 pack; Second Hand Exposure: No; Hx Alcohol Use: No Hx Substance Use: No Preferred Language: Somali Communication Ability: Effective Visual Impairment: No Limitations Candlemaker Required: No Beliefs That Will Affect Care: None marital status: Single Current Living Situation: Significant Other Current Living Situation Comment: with sig other at home current occupational status: disabled How many Children do You have: 0 Feels Safe at Home: Yes Dental Care, Regularly: No Physical Activity Frequency: Does not Exercise Seatbelt Use: always Sunscreen Use: No Assistive Devices: Cane and Walker Allergies Allergies Allergy/AdvReac Type Severity Reaction Status Date / Time aspirin Allergy Severe SEVERE Verified 10/05/21 15:29 STOMACH CRAMPING sulfamethoxazole Allergy Severe TONGUE Verified 10/05/21 15:29 SWELLING trimethoprim Allergy Severe TONGUE Verified 10/05/21 15:29 SWELLING Penicillins Allergy Unknown Unknown Verified 10/05/21 15:29 Home Meds Home Medications Medication Instructions Recorded Confirmed guaifenesin 600 mg tablet, 600 mg PO BID PRN Congestion 10/05/21 10/05/21 extended release 12 hr (Mucinex) Previous Rx's Medication Instructions Recorded nicotine 7 mg/24 hr daily 14 mg transdermal QAM #30 ea 01/21/21 transdermal patch acetaminophen 325 mg tablet 650 mg PO Q4H PRN pain #30 tabs 04/12/21 lorazepam 0.5 mg tablet 0.5 mg PO BID PRN muscle spasm or 04/19/21 for insomnia #30 tabs albuterol sulfate 90 mcg/actuation 2 puff inhalation .Q4-6HRS PRN 07/31/21 aerosol inhaler (ProAir HFA) Shortness Of Breath Or Wheezing #18 grams fluticasone fur. 100 mcg-umeclid 1 inh inhalation DAILY 1 month #60 10/10/21 62.5 mcg-vilant 25 mcg ea inhalat.powder (Trelegy Ellipta) mirtazapine 15 mg tablet 15 mg PO HS #30 tabs 10/19/21 albuterol sulfate 2.5 mg/3 mL 2.5 mg (3 mL) inhalation QID PRN 10/25/21 (0.083 %) solution for nebulization Shortness Of Breath Or Wheezing #180 mL prednisone 10 mg tablet See Rx Instructions PO DAILY #40 10/31/21 tabs Results & Data (ED) Vital Signs Vital Signs - 24 hr 12/20/21 08:06 12/20/21 08:10 12/20/21 08:31 Temperature 36.7 C Temperature Source Oral Pulse Rate 106 H Pulse Rate [Apical] 101 H Pulse Rate from SpO2 Sensor Respiratory Rate 20 20 Respiratory Effort / Characteristics Non-Labored Spontaneous Non-Labored Respiratory Depth Normal Normal Normal Blood Pressure 106/66 Blood Pressure [Right Arm] 105/63 Blood Pressure Mean 79 Blood Pressure Mean [Right Arm] 77 Blood Pressure Position Lying Pulse Oximetry 96 95 Oxygen Delivery Method Nasal Cannula Nasal Cannula Nasal Cannula Oxygen Flow Rate 3 3 3 Fraction of Inspired Oxygen Sepsis Recent Fever Within 48 Hours No Sepsis New/Unexplained Change in Mental Status No Sepsis Action Taken by Nursing No Action Required End-Tidal CO2 12/20/21 08:51 12/20/21 09:16 12/20/21 09:31 Temperature Temperature Source Pulse Rate Pulse Rate [Apical] 96 H 99 H 100 H Pulse Rate from SpO2 Sensor Respiratory Rate 16 18 20 Respiratory Effort / Characteristics Non-Labored Spontaneous Non-Labored Spontaneous Respiratory Depth Normal Blood Pressure Blood Pressure [Right Arm] 114/62 122/65 Blood Pressure Mean Blood Pressure Mean [Right Arm] 79 84 Blood Pressure Position Pulse Oximetry 96 99 99 Oxygen Delivery Method Nasal Cannula Nebulizer Nebulizer Oxygen Flow Rate 6 Fraction of Inspired Oxygen Sepsis Recent Fever Within 48 Hours Sepsis New/Unexplained Change in Mental Status Sepsis Action Taken by Nursing End-Tidal CO2 12/20/21 10:06 12/20/21 08:18 12/20/21 08:20 Temperature Temperature Source Pulse Rate 120 H 100 H 101 H Pulse Rate [Apical] Pulse Rate from SpO2 Sensor 100 H 101 H Respiratory Rate 26 H 19 21 Respiratory Effort / Characteristics Respiratory Depth Blood Pressure Blood Pressure [Right Arm] Blood Pressure Mean Blood Pressure Mean [Right Arm] Blood Pressure Position Pulse Oximetry 100 92 89 L Oxygen Delivery Method Oxygen Flow Rate Fraction of Inspired Oxygen 50 Sepsis Recent Fever Within 48 Hours Sepsis New/Unexplained Change in Mental Status Sepsis Action Taken by Nursing End-Tidal CO2 60 12/20/21 08:30 12/20/21 08:30 12/20/21 08:40 Temperature Temperature Source Pulse Rate 100 H 98 H Pulse Rate [Apical] Pulse Rate from SpO2 Sensor 101 H 98 H Respiratory Rate 21 18 Respiratory Effort / Characteristics Respiratory Depth Blood Pressure 105/63 Blood Pressure [Right Arm] Blood Pressure Mean 77 Blood Pressure Mean [Right Arm] Blood Pressure Position Pulse Oximetry 92 95 Oxygen Delivery Method Oxygen Flow Rate Fraction of Inspired Oxygen Sepsis Recent Fever Within 48 Hours Sepsis New/Unexplained Change in Mental Status Sepsis Action Taken by Nursing End-Tidal CO2 12/20/21 08:50 12/20/21 09:00 12/20/21 09:00 Temperature Temperature Source Pulse Rate 98 H 99 H Pulse Rate [Apical] Pulse Rate from SpO2 Sensor 98 H 99 H Respiratory Rate 11 L 24 Respiratory Effort / Characteristics Respiratory Depth Blood Pressure 114/62 Blood Pressure [Right Arm] Blood Pressure Mean 79 Blood Pressure Mean [Right Arm] Blood Pressure Position Pulse Oximetry 96 100 Oxygen Delivery Method Oxygen Flow Rate Fraction of Inspired Oxygen Sepsis Recent Fever Within 48 Hours Sepsis New/Unexplained Change in Mental Status Sepsis Action Taken by Nursing End-Tidal CO2 12/20/21 09:10 12/20/21 09:20 12/20/21 09:30 Temperature Temperature Source Pulse Rate 98 H 98 H Pulse Rate [Apical] Pulse Rate from SpO2 Sensor 98 H 98 H Respiratory Rate 18 18 Respiratory Effort / Characteristics Respiratory Depth Blood Pressure 122/65 Blood Pressure [Right Arm] Blood Pressure Mean 84 Blood Pressure Mean [Right Arm] Blood Pressure Position Pulse Oximetry 100 99 Oxygen Delivery Method Oxygen Flow Rate Fraction of Inspired Oxygen Sepsis Recent Fever Within 48 Hours Sepsis New/Unexplained Change in Mental Status Sepsis Action Taken by Nursing End-Tidal CO2 12/20/21 09:30 12/20/21 09:39 12/20/21 09:39 Temperature Temperature Source Pulse Rate 101 H 102 H Pulse Rate [Apical] Pulse Rate from SpO2 Sensor 100 H 102 H Respiratory Rate 36 H 13 Respiratory Effort / Characteristics Respiratory Depth Blood Pressure 122/67 Blood Pressure [Right Arm] Blood Pressure Mean 85 Blood Pressure Mean [Right Arm] Blood Pressure Position Pulse Oximetry 99 99 Oxygen Delivery Method Oxygen Flow Rate Fraction of Inspired Oxygen Sepsis Recent Fever Within 48 Hours Sepsis New/Unexplained Change in Mental Status Sepsis Action Taken by Nursing End-Tidal CO2 12/20/21 09:40 12/20/21 09:40 12/20/21 09:45 Temperature Temperature Source Pulse Rate 99 H Pulse Rate [Apical] Pulse Rate from SpO2 Sensor 98 H Respiratory Rate 22 Respiratory Effort / Characteristics Respiratory Depth Blood Pressure 119/65 106/55 L Blood Pressure [Right Arm] Blood Pressure Mean 83 72 Blood Pressure Mean [Right Arm] Blood Pressure Position Pulse Oximetry 99 Oxygen Delivery Method Oxygen Flow Rate Fraction of Inspired Oxygen Sepsis Recent Fever Within 48 Hours Sepsis New/Unexplained Change in Mental Status Sepsis Action Taken by Nursing End-Tidal CO2 12/20/21 09:45 12/20/21 09:50 12/20/21 09:50 Temperature Temperature Source Pulse Rate 101 H 114 H Pulse Rate [Apical] Pulse Rate from SpO2 Sensor 101 H 114 H Respiratory Rate 20 24 Respiratory Effort / Characteristics Respiratory Depth Blood Pressure 85/64 L Blood Pressure [Right Arm] Blood Pressure Mean 71 Blood Pressure Mean [Right Arm] Blood Pressure Position Pulse Oximetry 100 100 Oxygen Delivery Method Oxygen Flow Rate Fraction of Inspired Oxygen Sepsis Recent Fever Within 48 Hours Sepsis New/Unexplained Change in Mental Status Sepsis Action Taken by Nursing End-Tidal CO2 63 12/20/21 09:55 12/20/21 09:55 12/20/21 10:00 Temperature Temperature Source Pulse Rate 120 H Pulse Rate [Apical] Pulse Rate from SpO2 Sensor 120 H Respiratory Rate 26 H Respiratory Effort / Characteristics Respiratory Depth Blood Pressure 100/69 124/73 Blood Pressure [Right Arm] Blood Pressure Mean 79 90 Blood Pressure Mean [Right Arm] Blood Pressure Position Pulse Oximetry 100 Oxygen Delivery Method Oxygen Flow Rate Fraction of Inspired Oxygen Sepsis Recent Fever Within 48 Hours Sepsis New/Unexplained Change in Mental Status Sepsis Action Taken by Nursing End-Tidal CO2 57 12/20/21 10:00 12/20/21 10:05 12/20/21 10:05 Temperature Temperature Source Pulse Rate 122 H 118 H Pulse Rate [Apical] Pulse Rate from SpO2 Sensor 120 H Respiratory Rate 26 H 26 H Respiratory Effort / Characteristics Respiratory Depth Blood Pressure 118/73 Blood Pressure [Right Arm] Blood Pressure Mean 88 Blood Pressure Mean [Right Arm] Blood Pressure Position Pulse Oximetry 98 100 Oxygen Delivery Method Oxygen Flow Rate Fraction of Inspired Oxygen Sepsis Recent Fever Within 48 Hours Sepsis New/Unexplained Change in Mental Status Sepsis Action Taken by Nursing End-Tidal CO2 53 49 12/20/21 10:10 12/20/21 10:10 12/20/21 10:15 Temperature Temperature Source Pulse Rate 114 H 106 H Pulse Rate [Apical] Pulse Rate from SpO2 Sensor Respiratory Rate 26 H 26 H Respiratory Effort / Characteristics Respiratory Depth Blood Pressure 111/70 Blood Pressure [Right Arm] Blood Pressure Mean 83 Blood Pressure Mean [Right Arm] Blood Pressure Position Pulse Oximetry 98 100 Oxygen Delivery Method Oxygen Flow Rate Fraction of Inspired Oxygen Sepsis Recent Fever Within 48 Hours Sepsis New/Unexplained Change in Mental Status Sepsis Action Taken by Nursing End-Tidal CO2 46 43 12/20/21 10:15 12/20/21 10:20 12/20/21 10:20 Temperature Temperature Source Pulse Rate 105 H Pulse Rate [Apical] Pulse Rate from SpO2 Sensor Respiratory Rate 26 H Respiratory Effort / Characteristics Respiratory Depth Blood Pressure 99/66 L 107/72 Blood Pressure [Right Arm] Blood Pressure Mean 77 83 Blood Pressure Mean [Right Arm] Blood Pressure Position Pulse Oximetry 100 Oxygen Delivery Method Oxygen Flow Rate Fraction of Inspired Oxygen Sepsis Recent Fever Within 48 Hours Sepsis New/Unexplained Change in Mental Status Sepsis Action Taken by Nursing End-Tidal CO2 42 Home Medications Current Medication List: was personally reviewed by me Laboratory Data Attestation: I reviewed the patient's lab results. Result diagrams: 12/20/21 08:50 12/20/21 08:50 Lab Results 12/20/21 12/20/21 12/20/21 Range/Units 08:22 08:50 08:50 WBC 6.31 (4.8-10.8) K/ul RBC 3.99 (3.93-5.22) M/uL Hgb 12.4 (12.0-16.0) g/dl POC Hgb (12.0-16.0) g/dl Hct 39.4 (34.1-44.9) % POC Hct (37-47) % MCV 98.7 (80.0-100.0) fL MCH 31.1 (25.0-34.0) pg MCHC 31.5 L (32.0-36.0) g/dL RDW Std Deviation 54.4 H (36.4-46.3) fL RDW Coeff of Niru 14.8 H (11.5-14.5) % Plt Count 149 (130-400) K/uL MPV 9.7 (9.4-12.3) fL Immature Gran % (Auto) 0.3 % Neut % (Auto) 91.9 % Lymph % (Auto) 4.3 % [place] % (Auto) 3.0 % Eos % (Auto) 0.0 % Baso % (Auto) 0.5 % Neut # (Auto) 5.80 (1.4-6.5) K/uL Lymph # (Auto) 0.27 L (1.2-3.4) K/uL [place] # (Auto) 0.19 L (0.24-0.82) K/uL Eos # (Auto) 0.00 (0-0.50) K/uL Baso # (Auto) 0.03 (0-0.2) K/uL Immature Gran # (Auto) 0.02 (0.00-0.02) K/uL Specimen Type POC pH (7.35-7.45) POC pCO2 (35-46) mmHg POC pO2 (80-95) mmHg POC HCO3 (19-24) landen/L POC Total CO2 (24-31) mmol/L POC Base Excess (-9-1.8) landen/L Gildardo Test VBG pH (7.36-7.41) VBG pCO2 (38-50) mmHg VBG pO2 mmHg VBG HCO3 mmol/L VBG O2 Saturation % VBG Base Excess mEq/L POC Sodium (135-144) mmol/L Sodium 138 (136-145) mmol/L POC Potassium (3.3-5.0) mmol/L Potassium 4.0 (3.5-5.1) mmol/L Chloride 98 (98-107) mmol/L Carbon Dioxide 37 H (21-32) mmol/L Anion Gap 3 (3-11) BUN 12 (6-23) mg/dl Creatinine 0.47 L (0.6-1.2) mg/dl Est Cr Clr Drug Dosing 60.9 ml/min Est GFR ( Amer) 118.5 ml/min Est GFR (Non-Af Amer) 102.2 ml/min BUN/Creatinine Ratio 25.5 H (10-20) Glucose 123 H (70-99(Fasting)) mg/dl Calcium 8.4 L (8.5-10.1) mg/dl Magnesium 1.6 L (1.7-2.4) mg/dl Total Bilirubin 0.4 (0.2-1.0) mg/dl AST 14 (13-39) U/L ALT 7 (7-52) U/L Alkaline Phosphatase 75 (34-104) U/L Troponin I High Sens 7.0 (0-14) pg/ml Total Protein 5.7 L (6.0-8.3) gm/dl Albumin 3.5 (3.4-5.0) gm/dl Globulin 2.2 L (2.5-4.0) gm/dl Albumin/Globulin Ratio 1.6 (0.9-2) SARS-CoV-2, RNA, NAAT NEGATIVE (NEGATIVE) 12/20/21 12/20/21 Range/Units 08:50 09:54 WBC (4.8-10.8) K/ul RBC (3.93-5.22) M/uL Hgb (12.0-16.0) g/dl POC Hgb 13.3 (12.0-16.0) g/dl Hct (34.1-44.9) % POC Hct 39 (37-47) % MCV (80.0-100.0) fL MCH (25.0-34.0) pg MCHC (32.0-36.0) g/dL RDW Std Deviation (36.4-46.3) fL RDW Coeff of Niru (11.5-14.5) % Plt Count (130-400) K/uL MPV (9.4-12.3) fL Immature Gran % (Auto) % Neut % (Auto) % Lymph % (Auto) % [place] % (Auto) % Eos % (Auto) % Baso % (Auto) % Neut # (Auto) (1.4-6.5) K/uL Lymph # (Auto) (1.2-3.4) K/uL [place] # (Auto) (0.24-0.82) K/uL Eos # (Auto) (0-0.50) K/uL Baso # (Auto) (0-0.2) K/uL Immature Gran # (Auto) (0.00-0.02) K/uL Specimen Type Arterial POC pH 7.17 L* (7.35-7.45) POC pCO2 107 H (35-46) mmHg POC pO2 224 H (80-95) mmHg POC HCO3 39 H (19-24) landen/L POC Total CO2 42 H* (24-31) mmol/L POC Base Excess 10.0 H (-9-1.8) landen/L Gildardo Test Acceptable VBG pH 7.16 L (7.36-7.41) VBG pCO2 110 H (38-50) mmHg VBG pO2 47 mmHg VBG HCO3 39 mmol/L VBG O2 Saturation 72.8 % VBG Base Excess 6.4 mEq/L POC Sodium 135 (135-144) mmol/L Sodium (136-145) mmol/L POC Potassium 4.1 (3.3-5.0) mmol/L Potassium (3.5-5.1) mmol/L Chloride (98-107) mmol/L Carbon Dioxide (21-32) mmol/L Anion Gap (3-11) BUN (6-23) mg/dl Creatinine (0.6-1.2) mg/dl Est Cr Clr Drug Dosing ml/min Est GFR ( Amer) ml/min Est GFR (Non-Af Amer) ml/min BUN/Creatinine Ratio (10-20) Glucose (70-99(Fasting)) mg/dl Calcium (8.5-10.1) mg/dl Magnesium (1.7-2.4) mg/dl Total Bilirubin (0.2-1.0) mg/dl AST (13-39) U/L ALT (7-52) U/L Alkaline Phosphatase (34-104) U/L Troponin I High Sens (0-14) pg/ml Total Protein (6.0-8.3) gm/dl Albumin (3.4-5.0) gm/dl Globulin (2.5-4.0) gm/dl Albumin/Globulin Ratio (0.9-2) SARS-CoV-2, RNA, NAAT (NEGATIVE) Administered Medications Enoxaparin Sodium (Enoxaparin Inj 40 Mg/0.4 Ml Syr) 40 mg SQ Q24H TRACE Stop: 01/19/22 12:14 Last Admin: 12/20/21 12:55 Dose: 40 mg Documented By: DOUGLAS Fentanyl Citrate (Fentanyl Bolus From Bag) 50 mcg IV Q60M PRN PRN Reason: Pain or Agitation Stop: 01/03/22 10:31 Last Admin: 12/20/21 10:39 Dose: 25 mcg Documented By: JONELLE Fentanyl Citrate (Fentanyl Citrate) 2,500 mcg in 250 mls @ 2.5 mls/hr IV .Q96H TRACE; Protocol Stop: 01/03/22 10:44 Last Titration: 12/20/21 12:23 Dose: 25 mcg/hr, 2.5 mls/hr Documented By: DOUGLAS Co-signed By: NOELLE Titration: 12/20/21 10:54 Dose: 50 mcg/hr, 5 mls/hr Documented By: JONELLE Co-signed By: THEO Admin: 12/20/21 10:38 Dose: 25 mcg/hr, 2.5 mls/hr Documented By: JONELLE Co-signed By: THEO Azithromycin 500 mg/ Dextrose 255 mls @ 127.5 mls/hr IV Q24H TRACE; Protocol Stop: 12/25/21 12:14 Last Admin: 12/20/21 12:55 Dose: 127.5 mls/hr Documented By: DOUGLAS Midazolam HCl (Midazolam Bolus From Bag) 2 mg IV Q60M PRN PRN Reason: Sedation Stop: 01/19/22 09:48 Last Admin: 12/20/21 10:20 Dose: 2 mg Documented By: JONELLE Discontinued Medications Albuterol (Albut/Ipratrop 3mg/0.5mg Neb 3 Ml Vial) 12 ml INH ONE STA Stop: 12/20/21 08:13 Last Admin: 12/20/21 08:51 Dose: 12 ml Documented By: ALL Etomidate (Etomidate 2 Mg/Ml 20 Ml Vial) 8 mg IV NOW ONE Stop: 12/20/21 09:32 Last Admin: 12/20/21 09:43 Dose: 8 mg Documented By: JONELLE Fentanyl Citrate (Fentanyl Citrate 100 Mcg/2 Ml Vial) 25 mcg IV NOW ONE Stop: 12/20/21 09:50 Last Admin: 12/20/21 10:10 Dose: 25 mcg Documented By: JONELLE Sodium Chloride (Nss) 500 mls @ 999 mls/hr IV .Q31M STA Stop: 12/20/21 08:42 Last Infusion: 12/20/21 08:59 Dose: 0 mls/hr Documented By: Admin: 12/20/21 08:26 Dose: 999 mls/hr Documented By: SIN Magnesium Sulfate/Dextrose (Magnesium Sulfate / D5w) 1 gm in 100 mls @ 100 mls/hr IV NOW STA Stop: 12/20/21 09:12 Last Infusion: 12/20/21 09:25 Dose: 0 mls/hr Documented By: Admin: 12/20/21 08:24 Dose: 100 mls/hr Documented By: SIN Midazolam HCl (Versed) 125 mg in 250 mls @ 0 mls/hr IV .Q0M STA; Protocol Stop: 12/20/21 09:50 Last Titration: 12/20/21 12:23 Dose: 0 mg/hr, 0 mls/hr Documented By: DOUGLAS Co-signed By: NOELLE Titration: 12/20/21 10:33 Dose: 2 mg/hr, 4 mls/hr Documented By: JOENLLE Co-signed By: THEO Admin: 12/20/21 10:09 Dose: 1 mg/hr, 2 mls/hr Documented By: JONELLE Co-signed By: THEO Sodium Chloride (Nss 1000ml) 1,000 mls @ 999 mls/hr IV .Q1H1M ONE Stop: 12/20/21 10:54 Last Infusion: 12/20/21 12:26 Dose: 0 mls/hr Documented By: Admin: 12/20/21 10:10 Dose: 999 mls/hr Documented By: JONELLE Calcium Gluconate () 1,000 mg in 60 mls @ 240 mls/hr IV NOW STA Stop: 12/20/21 10:15 Last Infusion: 12/20/21 10:43 Dose: 0 mls/hr Documented By: Admin: 12/20/21 10:20 Dose: 240 mls/hr Documented By: JONELLE Magnesium Sulfate/Dextrose (Magnesium Sulfate / D5w) 1 gm in 100 mls @ 100 mls/hr IV NOW STA Stop: 12/20/21 11:00 Last Infusion: 12/20/21 12:25 Dose: 0 mls/hr Documented By: Admin: 12/20/21 10:21 Dose: 100 mls/hr Documented By: JONELLE Parenteral Electrolytes (Normosol-R) 500 mls @ 999 mls/hr IV .Q31M ONE Stop: 12/20/21 13:05 Last Infusion: 12/20/21 14:01 Dose: 0 mls/hr Documented By: Admin: 12/20/21 12:55 Dose: 999 mls/hr Documented By: DOUGLAS Parenteral Electrolytes (Normosol-R) 500 mls @ 999 mls/hr IV .Q31M ONE Stop: 12/20/21 14:38 Last Admin: 12/20/21 14:20 Dose: 999 mls/hr Documented By: DOUGLAS Miscellaneous (Rapid Sequence Induction Bag) Confirm Administered Dose 1 each . ROUTE .STK-MED ONE Stop: 12/20/21 09:33 Last Admin: 12/20/21 10:09 Dose: Not Given Documented By: JONELLE Chatterjee (Stat Iv Infusion Titration Per Protocol) 1 each N/A NOW STA Stop: 12/20/21 09:50 Last Admin: 12/20/21 10:09 Dose: Not Given Documented By: JONELLE Chatterjee (Stat Iv Infusion Titration Per Protocol) 1 each N/A NOW STA Stop: 12/20/21 10:33 Last Admin: 12/20/21 10:39 Dose: Not Given Documented By: JONELLE Rocuronium [place] (Rocuronium [place] 10 Mg/Ml 5 Ml Vial) 35 mg IV NOW STA Stop: 12/20/21 09:32 Last Admin: 12/20/21 09:44 Dose: 35 mg Documented By: JONELLE Co-signed By: [facility] Data Radiologist's Impression: Chest X-Ray 12/20/21 08:12 XR chest 1V portable CLINICAL HISTORY: Dyspnea. COMPARISON STUDY: Chest CT October 05, 2021 and chest radiograph October 07, 2021. FINDINGS: There are stable postoperative findings following right pneumonectomy. Emphysema within the left lung is present. No consolidation within the left lung is noted. There is no evidence for pulmonary edema. Appearance of the chest is unchanged. IMPRESSION: 1. No acute cardiopulmonary findings. No change in appearance of the chest. 2. Stable findings following right pneumonectomy. 3. Emphysema. ACT 112: Negative or not required by law. Electronically signed by: Rao Carrizales M.D. 12/20/2021 8:50 AM Chest X-Ray 12/20/21 09:48 XR chest 1V portable HISTORY: post intbuation, absent R lung COMPARISON: Chest 12/20/2021. FINDINGS: Endotracheal tube terminates 6 cm from the donna. Prior right pneumonectomy again noted. Mild chronic interstitial thickening within the left lung. No new focal lung consolidations. No pneumothorax. No pleural effusions. The heart remains stable in size. IMPRESSION: 1. Endotracheal tube terminates 6 cm from the donna. 2. Prior right pneumonectomy. ACT 112: Negative or not required by law. Electronically signed by: Miguel Zhang M.D. 12/20/2021 10:03 AM Discharge Plan Visit Data Chief Complaint: Shortness of Breath/Dyspnea Stated Complaint: SOB ED Provider: Celso Barnett Discharge Problem: Acute respiratory failure with hypoxia and hypercarbia, Acute exacerbation of chronic obstructive pulmonary disease Patient Disposition: Admitted As Inpatient Discharge Instructions Interventions: ED Discharge Assessment Last Done: 12/20/21 11:31
[2021-12-20] MEDS ORDERED: SODIUM CHLORIDE 0.9% 500 ML IV STA (08:12)
[2021-12-20] MEDS ORDERED: ALBUT/IPRATROP 3MG/0.5MG NEB 3 ML VIAL INH STA (08:12)
[2021-12-20] MEDS ORDERED: MAGNESIUM SULFATE / D5W 1 GM/100 ML BAG IV STA ×2 (08:13→10:01)
--- NOTE | 2021-12-20 08:51 | XRay Report ---
XR chest 1V portable CLINICAL HISTORY: Dyspnea. COMPARISON STUDY: Chest CT October 05, 2021 and chest radiograph October 07, 2021. FINDINGS: There are stable postoperative findings following right pneumonectomy. Emphysema within the left lung is present. No consolidation within the left lung is noted. There is no evidence for pulmo nary edema. Appearance of the chest is unchanged. IMPRESSION: 1. No acute cardiopulmonary findings. No change in appearance of the chest. 2. Stable findings following right pneumonectomy. 3. Emphysema. ACT 112: Negative or not required by law. Electronically signed by: Rao Carrizales M.D. 12/20/2021 8:50 AM
[2021-12-20 09:12] LABS: Hematocrit (blood only) 39.4 % (34.1-44.9); Hemoglobin 12.4 g/dl (12.0-16.0); Mean Corpuscular Hemoglobin 31.1 pg (25.0-34.0); Mean Corpuscular Hgb Conc 31.5 g/dL (32.0-36.0); Mean Corpuscular Volume 98.7 fL (80.0-100.0); Mean Platelet Volume 9.7 fL (9.4-12.3); Platelet Count 149 K/uL (130-400); RDW Coefficient of Variation 14.8 % (11.5-14.5); RDW Standard Deviation 54.4 fL (36.4-46.3); Red Blood Count 3.99 M/uL (3.93-5.22); White Blood Count 6.31 K/ul (4.8-10.8)
[2021-12-20 09:16] LABS: Base Excess VBG 6.4 mEq/L; HCO3 VBG 39 mmol/L; Oxygen Saturation VBG 72.8 %; PCO2 VBG 110 mmHg (38-50); PO2 VBG 47 mmHg; pH VBG 7.16 (7.36-7.41)
[2021-12-20] MEDS ORDERED: ROCURONIUM BROMIDE 10 MG/ML 5 ML VIAL IV STA (09:31)
[2021-12-20] MEDS ORDERED: ETOMIDATE 2 MG/ML 20 ML VIAL IV ONE (09:31)
[2021-12-20] MEDS ORDERED: RAPID SEQUENCE INDUCTION BAG ONE (09:32)
[2021-12-20 09:44] LABS: Albumin Globulin Ratio 1.6 (0.9-2); Albumin Level 3.5 gm/dl (3.4-5.0); BUN Creatinine Ratio 25.5 (10-20); Bilirubin,Total 0.4 mg/dl (0.2-1.0); Calcium 8.4 mg/dl (8.5-10.1); Creatinine Clr Calc Pharmacy 60.9 ml/min; Est GFR (African American) 118.5 ml/min; Est GFR (Non-African American) 102.2 ml/min; Globulin 2.2 gm/dl (2.5-4.0); Magnesium 1.6 mg/dl (1.7-2.4); Total Protein 5.7 gm/dl (6.0-8.3)
[2021-12-20] MEDS ORDERED: MIDAZOLAM HCL 125 MG/250 ML BAG IV STA (09:49)
[2021-12-20] MEDS ORDERED: MIDAZOLAM BOLUS FROM BAG IV PRN ×2 (09:49→15:04)
[2021-12-20] MEDS ORDERED: fentaNYL citrate 100 MCG/2 ML VIAL IV ONE (09:49)
[2021-12-20] MEDS ORDERED: STAT IV Infusion **Titration per Protocol STA ×3 (09:49→15:04)
[2021-12-20] MEDS ORDERED: SODIUM CHLORIDE 0.9% 1000ML 1,000 ML IV ONE (09:54)
[2021-12-20 09:57] LABS: Basophils # (auto) 0.03 K/uL (0-0.2); Basophils % (auto) 0.5 %; Immature Granulocytes # (auto) 0.02 K/uL (0.00-0.02); Immature Granulocytes % (auto) 0.3 %; Lymphocytes # (auto) 0.27 K/uL (1.2-3.4); Lymphocytes % (auto) 4.3 %; Monocytes # (auto) 0.19 K/uL (0.24-0.82); Neutrophils % (auto) 91.9 %
[2021-12-20] MEDS ORDERED: CALCIUM GLUCONATE 1,000 MG/60 ML BAG IV STA (10:01)
--- NOTE | 2021-12-20 10:04 | XRay Report ---
XR chest 1V portable HISTORY: post intbuation, absent R lung COMPARISON: Chest 12/20/2021. FINDINGS: Endotracheal tube terminates 6 cm from the donna. Prior right pneumonectomy again noted. M ild chronic interstitial thickening within the left lung. No new focal lung consolidations. No pneumo thorax. No pleural effusions. The heart remains stable in size. IMPRESSION: 1. Endotracheal tube terminates 6 cm from the donna. 2. Prior right pneumonectomy. ACT 112: Negative or not required by law. Electronically signed by: Miguel Zhang M.D. 12/20/2021 10:03 AM
--- NOTE | 2021-12-20 10:12 | History & Physical Report ---
Date of Service December 20, 2021 Assessment & Plan (1) Acute and chronic respiratory failure with hypoxia: Plan: -Admit to the ICU -Patient found to be in Hypercarbic respiratory failure in the ED and was intubated prior to admission -No leukocytosis, afebrile, left lung without signs of infection, will add on procal and UA for continued infectious workup -Unsure of how long the patient has been tachycardic for, she is high risk for PE as she is still a smoker and not anticoagulated, will add on D-dimer, if elevated will have to consider treatment for PE as well -Continue with intubation and ventilatory management per Respiratory team -[place] catheter placed, continue to monitor intake and output closely, will need to consider maintenance IV fluids while intubated -Would continue trying to contact family to discuss code status as patient is chronically ill and will likely have difficulty coming off the ventilator -Will repeat VBG now to monitor respiratory status -Patient normally on 2L NC at baseline (2) Chronic obstructive pulmonary disease: Plan: -Continue breathing treatments -conitnue aggressive pulmonary hygiene (3) Hypocalcemia: Plan: -Noted to be 8.4 in the ED, given 1gm calcium gluconate in the ED, continue to monitor (4) Hypomagnesemia: Plan: -Noted to be 1.6, given 1gm mag sulfate in the ED, conitnue to monitor (5) Tobacco use disorder: Plan: -If able to wean off vent would continue to push smoking cessation (6) History of pneumonectomy: Plan: -Stable findings on chest xray -Will likely be difficult to extubate as she has severe lung disease in the left lung Plan The patient was discussed with Dr. Parkinson at the time of the admission History of Present Illness Chief Complaint: Shortness of breath Primary Care Provider: Temitope Shaikh MD Amy Posadas is a 66-year-old female with a PMH significant for previous lung cancer S/P right pneumonectomy, current smoker, COPD and chronic hypoxic respiratory failure with baseline 2 L/min O2 requirement who presents to the ER via EMS due to shortness of breath. History is obtained from chart review and ED Physician as the patient is currently intubated. Per the ED, the patient started to experience worsening SOB yesterday to the point where she was severely SOB at 3 am this morning. She called EMS who gave the patient 4 albuterol treatments and 125 mg of methylprednisone en route. Initially on arrival to the ED the patient was able to speak but was confused. Workup in the ED showed a white count WNL, bicarb of 37, calcium of 8.4 and mag of 1.6. VBG showed a pH of 7.16 and a pCO2 of 110, covid screen was negative. Chest xray showed a stable right pneumonectomy, emphysema, and no acute findings in the left lung. ED attempted a code status discussion with the patient but she was too altered to give a reliable answer. The ED staff then attempted to call both the patient's son, Teodoro Posadas ([phone]) and her sister, Shruthi Mack ([phone]) but they did not pick and shovel man. At that time the ED staff made the decision to intubate the patient at that time. Prior to admission the patient was given 1mg IV calcium gluconate and 1gm Magnesium Sulfate. The ED staff spoke with the ICU team who accepted the patient for ICU admission. At the time of the exam the patient was in bed, currently intubated and hemodynamically stable; NG tube currently in place. History unable to be obtained at the time of the exam due to the patient's current status. Allergies Allergy/AdvReac Type Severity Reaction Status Date / Time aspirin Allergy Severe SEVERE Verified 10/05/21 15:29 STOMACH CRAMPING sulfamethoxazole Allergy Severe TONGUE Verified 10/05/21 15:29 SWELLING trimethoprim Allergy Severe TONGUE Verified 10/05/21 15:29 SWELLING Penicillins Allergy Unknown Unknown Verified 10/05/21 15:29 Home Medications Medication Instructions Recorded Confirmed Type nicotine 7 mg/24 hr daily 14 mg transdermal QAM #30 ea 01/21/21 10/05/21 Rx transdermal patch acetaminophen 325 mg tablet 650 mg PO Q4H PRN pain #30 tabs 04/12/21 10/05/21 Rx lorazepam 0.5 mg tablet 0.5 mg PO BID PRN muscle spasm or 04/19/21 10/05/21 Rx for insomnia #30 tabs albuterol sulfate 90 mcg/actuation 2 puff inhalation .Q4-6HRS PRN 07/31/21 10/05/21 Rx aerosol inhaler (ProAir HFA) Shortness Of Breath Or Wheezing #18 grams guaifenesin 600 mg tablet, 600 mg PO BID PRN Congestion 10/05/21 10/05/21 History extended release 12 hr (Mucinex) fluticasone fur. 100 mcg-umeclid 1 inh inhalation DAILY 1 month #60 10/10/21 Rx 62.5 mcg-vilant 25 mcg ea inhalat.powder (Trelegy Ellipta) mirtazapine 15 mg tablet 15 mg PO HS #30 tabs 10/19/21 10/19/21 Rx albuterol sulfate 2.5 mg/3 mL 2.5 mg (3 mL) inhalation QID PRN 10/25/21 Rx (0.083 %) solution for nebulization Shortness Of Breath Or Wheezing #180 mL prednisone 10 mg tablet See Rx Instructions PO DAILY #40 10/31/21 10/31/21 Rx tabs Past Med/Surg History Medical History Abnormal CT scan, gastrointestinal tract Alcoholism B12 deficiency Bilateral kidney stones Chronic obstructive pulmonary disease Chronic reflux esophagitis Chronic respiratory failure Dilation of thoracic aorta Hypomagnesemia Influenza Leukocytosis Lung cancer Osteoporosis Palliative care encounter Pneumonia Pneumonia Protein calorie malnutrition SIADH (syndrome of inappropriate ADH production) Squamous cell carcinoma of lung Unspecified cirrhosis of liver Surgical History History of pneumonectomy S/P lobectomy of lung Family History Father Aortic aneurysm Hypertension Mother COPD (chronic obstructive pulmonary disease) CHF (congestive heart failure) Osteoporosis Renal failure Grandmother Diabetes Grandfather Skin cancer Other Myocardial infarction No pertinent family history in first degree relatives Denies family history of Ovarian cancer Prostate cancer Breast cancer Colorectal cancer Social History Smoking Status: Current every day smoker Tobacco Type: Cigarettes Cigarettes Per Day: unk; Second Hand Exposure: No; Hx Alcohol Use: No Hx Substance Use: No Preferred Language: Pakistani Communication Ability: Effective Communication Ability Comment: intubated Visual Impairment: No Limitations Towboat Engineer Required: No Beliefs That Will Affect Care: None marital status: Single Current Living Situation: Other Current Living Situation Comment: fiance current occupational status: disabled How many Children do You have: 0 Other Information That Helps Us Care for You: No Feels Safe at Home: Yes Safety Concerns: Feels Safe At This Time Dental Care, Regularly: No Physical Activity Frequency: Does not Exercise Seatbelt Use: always Sunscreen Use: No Assistive Devices: Cane, Oxygen - Continuous and Walker Review of Systems Review of Systems: ROS unable to be obtained at the time of the exam due to intubation status Physical Exam Physical Exam: Physical Exam: General: In no acute distress, older than stated age, malnourished, chronically ill-appearing HEENT: Currently with ET tube in place, Normocephalic, atraumatic, no scleral icterus, pupils are round, symmetrical, and minimally reactive to light, dry mucus membranes, trachea midline Chest/Pulm: Ventilator currently set to VT of 350 mL, Peep of 5, FiO2 of 50%, and respirations of 26, asymmetric chest expansion due to prior pneumonectomy, absent right breath sounds, clear breath sounds throughout the left lung Cardiac: Tachycardic rate, regular rhythm, no murmurs noted Abdomen: Negative for ascites and bruising, normoactive bowel sounds, soft, no guarding during palpation Musculoskeletal: No acute trauma noted, patient currently intubated and not moving extremities Extremities: Radial, dorsalis pedis, and posterior tibial pulses are intact and symmetrical, no edema noted in the BL LE's Skin: Warm, dry, no rashes , lesions, or scars noted, unable to examine the posterior skin due to current intubation status Neuro: unresponsive due to intubation status, no focal neuro defects noted, negative Babinski sign on the BL feet, pupils are symmetrical and minimally reactive to light Psych: No acute distress due to intubation status Results & Data Results & Data ([facility]) Vital Signs (Past 12 Hours) Vital Signs Temp Pulse Pulse Resp BP BP Pulse Ox 12/20/21 09:31 100 H 20 122/65 99 12/20/21 09:16 99 H 18 114/62 99 12/20/21 08:51 96 H 16 96 12/20/21 08:31 101 H 20 105/63 95 12/20/21 08:10 12/20/21 08:06 36.7 C 106 H 20 106/66 96 O2 Del Method O2 Flow Rate 12/20/21 09:31 Nebulizer 12/20/21 09:16 Nebulizer 12/20/21 08:51 Nasal Cannula 6 12/20/21 08:31 Nasal Cannula 3 12/20/21 08:10 Nasal Cannula 3 12/20/21 08:06 Nasal Cannula 3 Laboratory Results Abnormal lab results 12/20/21 12/20/21 12/20/21 Range/Units 08:50 08:50 08:50 MCHC 31.5 L (32.0-36.0) g/dL RDW Std Deviation 54.4 H (36.4-46.3) fL RDW Coeff of Niru 14.8 H (11.5-14.5) % Lymph # (Auto) 0.27 L (1.2-3.4) K/uL [place] # (Auto) 0.19 L (0.24-0.82) K/uL VBG pH 7.16 L (7.36-7.41) VBG pCO2 110 H (38-50) mmHg Carbon Dioxide 37 H (21-32) mmol/L Creatinine 0.47 L (0.6-1.2) mg/dl BUN/Creatinine Ratio 25.5 H (10-20) Glucose 123 H (70-99(Fasting)) mg/dl Calcium 8.4 L (8.5-10.1) mg/dl Magnesium 1.6 L (1.7-2.4) mg/dl Total Protein 5.7 L (6.0-8.3) gm/dl Globulin 2.2 L (2.5-4.0) gm/dl Diagnostic Findings Chest X-Ray 12/20/21 08:12 XR chest 1V portable CLINICAL HISTORY: Dyspnea. COMPARISON STUDY: Chest CT October 05, 2021 and chest radiograph October 07, 2021. FINDINGS: There are stable postoperative findings following right pneumonectomy. Emphysema within the left lung is present. No consolidation within the left lung is noted. There is no evidence for pulmonary edema. Appearance of the chest is u nchanged. IMPRESSION: 1. No acute cardiopulmonary findings. No change in appearance of the chest. 2. Stable findings following right pneumonectomy. 3. Emphysema. ACT 112: Negative or not required by law. Electronically signed by: Rao Carrizales M.D. 12/20/2021 8:50 AM Chest X-Ray 12/20/21 09:48 XR chest 1V portable HISTORY: post intbuation, absent R lung COMPARISON: Chest 12/20/2021. FINDINGS: Endotracheal tube terminates 6 cm from the donna. Prior right pneumonectomy again noted. Mild chronic interstitial thickening within the left lung. No new focal lung consolidations. No pneumothorax. No pleural effusions. The heart remains stable in size. IMPRESSION: 1. Endotracheal tube terminates 6 cm from the donna. 2. Prior right pneumonectomy. ACT 112: Negative or not required by law. Electronically signed by: Miguel Zhang M.D. 12/20/2021 10:03 AM ECG Additional Comments: Sinus tachycardia Right atrial enlargement Minimal voltage criteria for LVH, may be normal variant Nonspecific T wave abnormality Abnormal ECG When compared with ECG of 05-OCT-2021 07:12, No significant change was found Confirmed by Ryan Vargas ([id number]) on 12/20/2021 8:18:12 AM Code Status & VTE Plan Code Status Unknow at this time as patient was intubated prior to admission and listed contacts have not answered when they were called VTE Prophylaxis Plan VTE Prophylaxis will be ordered: Yes Critical Care Time Critical Care Time: Yes Total Critical Care Time: 35 Supervising Physician Co-Signing Physician Notes Patient seen and examined at bedside. During face to face encounter obtained a history and physical examination. History obtained through chart review as patient already intubated. I reviewed above note and agree with it. Plan of care discussed with patient and APC Peno. Patient admitted for acute hypoxic and hypercapnic respiratory failure and will be intubated and admitted to the ICU PG Care Time/CCT Total # of Minutes Spent Total Time Spent with Patient: Total time spent is greater than 50% in coordination of care (as documented) at patient's floor/unit and/or counseling patient: Critical Care Time: Yes Total Critical Care Time: 35 [place] [address] Initial Inpt Care Lvl 3 Patient Type Established Medical Decision Making High Complexity Diagnoses Acute and chronic respiratory failure with hypoxia J96.21 Chronic obstructive pulmonary disease J44.9 Hypocalcemia E83.51 Hypomagnesemia E83.42 Tobacco use disorder F17.200 History of pneumonectomy Z98.890; Z90.2 Additional Codes Critical Care Time - Critical Care Time: Yes ([id number])
[2021-12-20] MEDS ORDERED: fentaNYL BOLUS from BAG IV PRN (10:32)
--- NOTE | 2021-12-20 10:33 | Critical Care Consultation ---
Date of Consultation December 20, 2021 Assessment & Plan (1) Acute and chronic respiratory failure with hypoxia: Reason for critically ill: Patient is a 66-year-old female with a history of chronic respiratory failure with progressively worsening shortness of breath for the past 2 days arrived at the emergency room requiring intubation and sequential mechanical ventilation currently being transferred to the ICU for management. Neuro - Sedated for mechanical ventilation. Cardiac - No chronic issues, sinus tachycardia noted Respiratory - Acute on chronic hypercarbic hypoxemic respiratory failure -History of COPD, suspect likely due to exacerbation in the setting of singular lung -Currently intubated, wean off with trials as tolerated -D-dimer pending at the time of writing this note, consider CTA given results and history of lung cancer and smoking to evaluate for PE -UDS pending -Start DuoNeb, IV steroids, and azithromycin for assumed COPD exacerbation -Mucinex, flutter valve, incentive spirometry when off ventilator -Procalcitonin negative, unlikely to be infectious Respiratory acidosis -Presenting with a VBG of 7.16 and PCO2 of 110 -Treat as above, recheck with ABG showing pH of 7.349 (after being intubated) COPD -See plan above -Continues to smoke even after status postpneumonectomy -Advocate for nicotine cessation -Nicotine patch -Restart home inhalers when able RENAL/LYTES - Hypomagnesemia -Replacement per protocol ICU electrolyte replacement protocol - De Los Santos catheter for accurate I's and O's ENDO - No hx of DM ICU hyperglycemia protocol HEME - No issues ID - -azithromycin for COPD exacerbation as above -Procalcitonin negative -Chest x-ray negative for pneumonia -UA negative for urinary tract infection MSK PT/OT evaluation when not on ventilation. VTE prophylaxis: Lovenox Lines: 2 peripherals, working to put ultrasound-guided IV Diet: N.p.o. Disposition: ICU for mechanical ventilation management (2) COPD exacerbation: (3) History of pneumonectomy: (4) Tobacco use disorder: Supervising Physician Co-Signing Physician Notes Dr. Barnard was the resident-physician during care of patient. I separately evaluated patient for [place] portions of the history and the exam. I was present during the critical portion of medical decision making, and I discussed the case with the resident. I generally agree with the findings and plan except for any additions/exceptions noted. 66-year-old female past medical history of lung cancer status post right pneumonectomy, COPD, chronic hypoxic respiratory failure on 2 L oxygen at home presented to the hospital with shortness of breath. She was also found to be somnolent. VBG was done which showed pH of 7.16 and PCO2 of 110. She was intubated in the ER And transferred to the ICU for further care Patient was seen in the ICU. She was on 4 of midazolam and 50 of fentanyl at the time of examination her map was in the low 60s. Midazolam was turned off and fentanyl was turned down to 25. She was given bolus of 1 L IV fluids patient started volume Patient was saturating 100% on 50% FiO2. She was breathing over the vent Constitutional: No acute distress HEENT: PERRLA, positive ETT Respiratory system: Decreased air entry on the right side, no wheeze, no rhonchi, mild crackles bilaterally CVS: S1-S2 positive, no murmurs or gallops, accentuated P2 Abdomen: Soft, nontender, nondistended, positive bowel sounds x4 Extremities: +2 pulses bilaterally radialis/ dorsalis pedis, no cyanosis, no edema Neuro: Sedated, breathing over the vent Psych: Unable to assess G/U: Positive De Los Santos --Prophylaxis VTE: Lovenox GI:Protonix Lines: Peripheral Diet: N.p.o. Plan: Repeat ABG showed pH of 7.35 PCO2 of 50. Lactic acidosis was seen with lactate of 4.1 which was gradually improving with fluids Continue with vent support for the time being Patient is actually DNR/DNI as per the POA. She is already intubated we will try to extubate tomorrow to BiPAP. No escalation of care. Continue with Solu-Medrol and azithromycin for COPD exacerbation Hypotension is likely multifactorial from hypotension as well as sedation. I have personally spent 57 minutes of critical care time in the direct management of this patient. This is a life/limb threatening event. This includes time spent evaluating patient, direct bedside care, chart review, placing orders, interpretation of diagnostic studies, discussion with consultants, patient, and/or family members regarding treatment decisions, as well as other required patient management activities. This time is exclusive of all separately billable procedures, and teaching time and separate from and in addition to any other critical care service time. History of Present Illness Reason for Consultation: Acute on chronic hypoxemic hypercarbic respiratory failure History of Present Illness Patient is a 66-year-old female with a past medical history of right pneumonectomy secondary to lung cancer that was curative, current tobacco use, COPD, SIADH, osteoporosis, and liver cirrhosis who presented to the emergency department via EMS for shortness of breath. Unfortunately patient is intubated and obtunded and unable to answer questions at this time. Patient has a baseline oxygen requirement at home of 2 L nasal cannula at all times. HPI is obtained entirely from ED provider and chart review. It seems patient has been having a couple of days of shortness of breath that has been progressively getting worse and because of this she had called emergency medical services. EMS had given her 4 albuterol treatments in addition to 125 mg of Methylpred on route to the emergency room that only provided mild improvement in her symptoms. When in the emergency room she was experiencing worsening shortness of breath and some achy chest pain that was worse with cough. Patient had lab work done which did include a VBG which revealed a pH of 7.16 with a PCO2 of 110. Because of this and patient presentation, patient was intubated. Patient is COVID- negative. Other lab abnormalities include low magnesium of 1.6. White count is normal. Patient's 2 relatives in her chart were called to discuss CODE STATUS but unfortunately they were not able to be reached. Because of this emergency, implied consent was utilized in order to do the intubation. Unable to provide any other review of systems at this time. Allergies Allergy/AdvReac Type Severity Reaction Status Date / Time aspirin Allergy Severe SEVERE Verified 10/05/21 15:29 STOMACH CRAMPING sulfamethoxazole Allergy Severe TONGUE Verified 10/05/21 15:29 SWELLING trimethoprim Allergy Severe TONGUE Verified 10/05/21 15:29 SWELLING Penicillins Allergy Unknown Unknown Verified 10/05/21 15:29 Home Medications Medication Instructions Recorded Confirmed Type nicotine 7 mg/24 hr daily 14 mg transdermal QAM #30 ea 01/21/21 10/05/21 Rx transdermal patch acetaminophen 325 mg tablet 650 mg PO Q4H PRN pain #30 tabs 04/12/21 10/05/21 Rx lorazepam 0.5 mg tablet 0.5 mg PO BID PRN muscle spasm or 04/19/21 10/05/21 Rx for insomnia #30 tabs albuterol sulfate 90 mcg/actuation 2 puff inhalation .Q4-6HRS PRN 07/31/21 10/05/21 Rx aerosol inhaler (ProAir HFA) Shortness Of Breath Or Wheezing #18 grams guaifenesin 600 mg tablet, 600 mg PO BID PRN Congestion 10/05/21 10/05/21 History extended release 12 hr (Mucinex) fluticasone fur. 100 mcg-umeclid 1 inh inhalation DAILY 1 month #60 10/10/21 Rx 62.5 mcg-vilant 25 mcg ea inhalat.powder (Trelegy Ellipta) mirtazapine 15 mg tablet 15 mg PO HS #30 tabs 10/19/21 10/19/21 Rx albuterol sulfate 2.5 mg/3 mL 2.5 mg (3 mL) inhalation QID PRN 10/25/21 Rx (0.083 %) solution for nebulization Shortness Of Breath Or Wheezing #180 mL prednisone 10 mg tablet See Rx Instructions PO DAILY #40 10/31/21 10/31/21 Rx tabs Patient History Medical History Abnormal CT scan, gastrointestinal tract Alcoholism B12 deficiency Bilateral kidney stones Chronic obstructive pulmonary disease Chronic reflux esophagitis Chronic respiratory failure Dilation of thoracic aorta Hypomagnesemia Influenza Leukocytosis Lung cancer Osteoporosis Palliative care encounter Pneumonia Pneumonia Protein calorie malnutrition SIADH (syndrome of inappropriate ADH production) Squamous cell carcinoma of lung Unspecified cirrhosis of liver Surgical History History of pneumonectomy S/P lobectomy of lung Family History Father Aortic aneurysm Hypertension Mother COPD (chronic obstructive pulmonary disease) CHF (congestive heart failure) Osteoporosis Renal failure Grandmother Diabetes Grandfather Skin cancer Other Myocardial infarction No pertinent family history in first degree relatives Denies family history of Ovarian cancer Prostate cancer Breast cancer Colorectal cancer Social History Smoking Status: Current every day smoker Tobacco Type: Cigarettes Cigarettes Per Day: unk; Second Hand Exposure: No; Hx Alcohol Use: No Hx Substance Use: No Preferred Language: Pashto Communication Ability: Effective Communication Ability Comment: intubated Visual Impairment: No Limitations Jet Operator Required: No Beliefs That Will Affect Care: None marital status: Single Current Living Situation: Other Current Living Situation Comment: hilario current occupational status: disabled How many Children do You have: 0 Other Information That Helps Us Care for You: No Feels Safe at Home: Yes Safety Concerns: Feels Safe At This Time Dental Care, Regularly: No Physical Activity Frequency: Does not Exercise Seatbelt Use: always Sunscreen Use: No Assistive Devices: Cane, Oxygen - Continuous and Walker Review of Systems Review of Systems: Unobtainable due to endotracheal tube and Unobtainable due to reduced consciousness Physical Exam Constitutional: + ill appearing, + thin, + frail appearing and + mechanically ventilated Eyes: + anicteric sclerae Neck: trachea midline, no thyromegaly normal visual inspection Thyroid: normal thyroid Respiratory: Auscultation: + breath sounds absent (On the right) Clear to auscultation on the left Cardiovascular: Rate/Rhythm: regular rhythm and + tachycardic Heart Sounds: no murmur Vessels: no JVD Gastrointestinal (Abdomen): Inspection/Auscultation: abdomen normal to inspection and normal bowel sounds Musculoskeletal: Head/Neck/Chest: head atraumatic Skin: no rashes, warm and dry + turgor decreased Neurologic: + obtunded Results & Data Results & Data ([facility]) Vital Signs (Past 12 Hours) Vital Signs Temp Pulse Pulse Resp BP BP Pulse Ox 12/20/21 10:06 120 H 26 H 100 12/20/21 09:31 100 H 20 122/65 99 12/20/21 09:16 99 H 18 114/62 99 12/20/21 08:51 96 H 16 96 12/20/21 08:31 101 H 20 105/63 95 12/20/21 08:10 12/20/21 08:06 36.7 C 106 H 20 106/66 96 O2 Del Method O2 Flow Rate FiO2 12/20/21 10:06 50 12/20/21 09:31 Nebulizer 12/20/21 09:16 Nebulizer 12/20/21 08:51 Nasal Cannula 6 12/20/21 08:31 Nasal Cannula 3 12/20/21 08:10 Nasal Cannula 3 12/20/21 08:06 Nasal Cannula 3 Laboratory Results 12/20/21 08:50 12/20/21 08:50
[2021-12-20] MEDS ORDERED: fentaNYL citrate 2,500 MCG/250 ML BAG IV SCH (10:45)
--- NOTE | 2021-12-20 10:46 | XRay Report ---
KUB HISTORY: Status post placement of OG placement COMPARISON: Chest radiograph 12/20/2021, CT abdomen and pelvis 06/24/2017 FINDINGS: Endotracheal tube terminates approximately 6 cm superior to the donna. Postoperative waters es of the right hemithorax. Status post placement of an enteric tube distal tip projected over the ex pected location of the mid gastric body. No renal calculi. No ureteral calculi. No pneumoperitoneum or pneumatosis. No fracture. IMPRESSION: Distal tip of enteric tube projects over the gastric body. ACT 112: Negative or not required by law. The above report was generated using voice recognition software. It may contain grammatical, syntax o r spelling errors. Electronically signed by: Richard Jha M.D. 12/20/2021 10:44 AM
[2021-12-20 11:24] LABS: iSTAT Hematocrit 39 % (37-47); iSTAT Hemoglobin 13.3 g/dl (12.0-16.0); iSTAT Potassium 4.1 mmol/L (3.3-5.0); iSTAT Sodium 135 mmol/L (135-144)
[2021-12-20 11:25] LABS: iSTAT Allen Test Acceptable; iSTAT Arterial Blood Gas HCO3 39 meg/L (19-24); iSTAT Arterial Blood Gas pCO2 107 mmHg (35-46); iSTAT Arterial Blood Gas pH 7.17 (7.35-7.45); iSTAT Arterial Blood Gas pO2 224 mmHg (80-95); iSTAT Carbon Dioxide 42 mmol/L (24-31); iSTAT Sample Type Arterial
[2021-12-20 12:00] LABS: iSTAT Arterial Blood Gas HCO3 29 meg/L (19-24); iSTAT Arterial Blood Gas pCO2 55 mmHg (35-46); iSTAT Arterial Blood Gas pH 7.33 (7.35-7.45); iSTAT Arterial Blood Gas pO2 191 mmHg (80-95); iSTAT Carbon Dioxide 31 mmol/L (24-31); iSTAT FiO2 50 %; iSTAT Site R Radial
[2021-12-20] MEDS ORDERED: ICU PROTOCOL FOR HYPERGLYCEMIA PRN (12:15)
[2021-12-20] MEDS ORDERED: ENOXAPARIN INJ 40 MG/0.4 ML SYR SQ SCH (12:15)
[2021-12-20] MEDS ORDERED: Nursing to Pharmacy Communication SCH (12:30)
[2021-12-20] MEDS ORDERED: NORMOSOL-R 500 ML IV ONE ×3 (12:35→22:19)
[2021-12-20 12:46] LABS: Appearance Urine Clear (Clear); Bacteria Urine Automated Negative (Negative); Bilirubin Urine Negative (Negative); Blood Urine Negative (Negative); Color Urine Yellow; Epithelial Cell Urine Auto 20-30 /lpf (0-5); Glucose Urine UA Negative (Negative); Ketones Urine Trace (Negative); Leukocyte Esterase Urine Negative (Negative); Nitrite Urine Negative (Negative); Protein Urine 1+ (Negative); RBC Urine Automated 0-4 /hpf (0-4); Specific Gravity Urine 1.018 (1.000-1.030); Urobilinogen Urine Negative (Negative)
[2021-12-20 12:50] LABS: D Dimer 1240 ug/L FEU (0-500)
[2021-12-20] MEDS: AZITHROMYCIN 500 MG in DEXTROSE 5% 250 ML IV SCH (12:55)
[2021-12-20 13:45] LABS: Amphetamines+Metham, Urine Neg (Neg); Barbiturates, Urine Neg (Neg); Benzodiazepine, Urine Pos (Neg); Cocaine, Urine Neg (Neg); MDMA (Ecstacy), Urine Neg (Neg); Methadone, Urine Neg (Neg); Opiate, Urine Neg (Neg); Phencyclidine, Urine Neg (Neg)
[2021-12-20] MEDS ORDERED: MIDAZOLAM HCL 125 MG/250 ML BAG IV PRN (15:04)
[2021-12-20] MEDS: ALBUT/IPRATROP 3MG/0.5MG NEB 3 ML VIAL NEB SCH ×2 (15:12→19:05)
[2021-12-20] MEDS ORDERED: INFLUENZA VACCINE HIGH DOSE PF 65+ 0.7 ML SYR IM ONE (16:41)
[2021-12-20] MEDS ORDERED: PNEUMOCOCCAL POLYSACCHARIDES 25 MCG/0.5 ML VIAL/SYR IM ONE (16:41)
--- NOTE | 2021-12-20 17:06 | Billing Data ---
Date of Service December 20, 2021 Coding Level of Care Code Critical Care 1st 30-74 mins Time Spent (min) 57
[2021-12-20] MEDS: methylPREDNISolone 40 MG in SYRINGE 0 ML IV SCH (22:11)
[2021-12-20 22:45] LABS: iSTAT Allen Test Pass; iSTAT Art Bld Gas pCO2 Correct 32 mmHg (35-46); iSTAT Art Bld Gas pH Corrected 7.612 (7.35-7.45); iSTAT Arterial Blood Gas HCO3 32 meg/L (19-24); iSTAT Arterial Blood Gas pCO2 31 mmHg (35-46); iSTAT Arterial Blood Gas pH 7.62 (7.35-7.45); iSTAT Arterial Blood Gas pO2 67 mmHg (80-95); iSTAT Arterial Blood Gas pO2 C 69; iSTAT Carbon Dioxide 33 mmol/L (24-31); iSTAT FiO2 30 %; iSTAT Hematocrit 30 % (37-47); iSTAT Hemoglobin 10.2 g/dl (12.0-16.0); iSTAT Potassium 3.8 mmol/L (3.3-5.0); iSTAT Site R Radial; iSTAT Sodium 132 mmol/L (135-144)
[2021-12-21 05:02] LABS: Albumin Globulin Ratio 1.9 (0.9-2); Albumin Level 3.2 gm/dl (3.4-5.0); BUN Creatinine Ratio 33.3 (10-20); Bilirubin,Total 0.5 mg/dl (0.2-1.0); Calcium 8.2 mg/dl (8.5-10.1); Creatinine Clr Calc Pharmacy 68.1 ml/min; Est GFR (African American) 122.9 ml/min; Est GFR (Non-African American) 106.1 ml/min; Globulin 1.7 gm/dl (2.5-4.0); Magnesium 1.7 mg/dl (1.7-2.4); Potassium 4.2 mmol/L (3.5-5.1); Total Protein 4.9 gm/dl (6.0-8.3)
[2021-12-21 05:06] LABS: iSTAT Allen Test Pass; iSTAT Art Bld Gas pCO2 Correct 46 mmHg (35-46); iSTAT Art Bld Gas pH Corrected 7.451 (7.35-7.45); iSTAT Arterial Blood Gas HCO3 32 meg/L (19-24); iSTAT Arterial Blood Gas pCO2 47 mmHg (35-46); iSTAT Arterial Blood Gas pH 7.44 (7.35-7.45); iSTAT Arterial Blood Gas pO2 117 mmHg (80-95); iSTAT Arterial Blood Gas pO2 C 114; iSTAT Carbon Dioxide 33 mmol/L (24-31); iSTAT FiO2 30 %; iSTAT Hematocrit 34 % (37-47); iSTAT Hemoglobin 11.6 g/dl (12.0-16.0); iSTAT Potassium 4.2 mmol/L (3.3-5.0); iSTAT Site L Radial; iSTAT Sodium 133 mmol/L (135-144)
[2021-12-21 05:12] LABS: Hematocrit (blood only) 32.4 % (34.1-44.9); Mean Corpuscular Hemoglobin 30.8 pg (25.0-34.0); Mean Corpuscular Volume 90.8 fL (80.0-100.0); Mean Platelet Volume 10.4 fL (9.4-12.3); Platelet Count 138 K/uL (130-400); RDW Coefficient of Variation 15.1 % (11.5-14.5); RDW Standard Deviation 50.3 fL (36.4-46.3); Red Blood Count 3.57 M/uL (3.93-5.22); White Blood Count 7.21 K/ul (4.8-10.8)
[2021-12-21 05:16] LABS: Basophils # (auto) 0.01 K/uL (0-0.2); Basophils % (auto) 0.1 %; Immature Granulocytes # (auto) 0.03 K/uL (0.00-0.02); Immature Granulocytes % (auto) 0.4 %; Lymphocytes # (auto) 0.15 K/uL (1.2-3.4); Lymphocytes % (auto) 2.1 %; Monocytes # (auto) 0.13 K/uL (0.24-0.82); Monocytes % (auto) 1.8 %; Neutrophils # (auto) 6.89 K/uL (1.4-6.5); Neutrophils % (auto) 95.6 %
[2021-12-21] MEDS: MAGNESIUM SULFATE / D5W 1 GM/100 ML BAG IV SCH ×4 (06:05→08:57)
[2021-12-21] MEDS: ALBUT/IPRATROP 3MG/0.5MG NEB 3 ML VIAL NEB SCH ×4 (07:23→19:01)
--- NOTE | 2021-12-21 07:56 | Critical Care Progress Note ---
Date of Service December 21, 2021 Assessment & Plan (1) Acute and chronic respiratory failure with hypoxia: (2) COPD exacerbation: (3) History of pneumonectomy: (4) Tobacco use disorder: Plan Reason for critically ill: Patient is a 66-year-old female with a history of chronic respiratory failure with progressively worsening shortness of breath for the past 2 days arrived at the emergency room requiring intubation and sequential mechanical ventilation currently being transferred to the ICU for management. Neuro - Sedated for mechanical ventilation. Cardiac - No chronic issues, sinus tachycardia noted Respiratory - Acute on chronic hypercarbic hypoxemic respiratory failure -History of COPD, suspect likely due to exacerbation in the setting of single lung On 2 L oxygen at home -D-dimer elevated, patient saturating 99% on 25% FiO2, no concern for PE -Start DuoNeb, IV steroids, and azithromycin for assumed COPD exacerbation -Mucinex, flutter valve, incentive spirometry when off ventilator -Procalcitonin negative, unlikely to be infectious O2 saturation to keep oxygen between 88-92% COPD -See plan above -Continues to smoke even after status postpneumonectomy -Advocate for nicotine cessation -Nicotine patch -Restart home inhalers when able Hx of lung cancer s/p right pneumonectomy RENAL/LYTES - Monitor BUNs/creatinine Avoid nephrotoxic medication ICU electrolyte replacement protocol - De [place] catheter for accurate I's and O's ENDO - ICU hyperglycemia protocol HEME - No issues ID - -azithromycin for COPD exacerbation as above -Procalcitonin negative -Chest x-ray negative for pneumonia -UA negative for urinary tract infection --DNR/DNI --Prophylaxis VTE: Lovenox GI:Protonix Lines: Peripheral Diet: N.p.o. Plan: In/out: +3.3 L, urine output 380 AB.44/47/117 on PEEP of 5, 30% Magnesium being replaced Continue with Solu-Medrol 40 mg every 12 Complete the course of azithromycin for 5 days Trial of extubation today to BiPAP I have personally spent 33 minutes of critical care time in the direct management of this patient. This is a life/limb threatening event. This includes time spent evaluating patient, direct bedside care, chart review, placing orders, interpretation of diagnostic studies, discussion with consultants, patient, and/or family members regarding treatment decisions, as well as other required patient management activities. This time is exclusive of all separately billable procedures, and teaching time and separate from and in addition to any other critical care service time. Admission and Anticipated Discharge Date Admission Date: December 20, 2021 Subjective Patient seen and examined at bedside. No acute distress, no adverse events overnight. Patient was on 1 of midazolam and 25 continue at the time of examination She was waking up answering appropriate questions Wanted the tube out. Denies any chest pain, no headache Review of Systems Review of Systems: All systems reviewed & are unremarkable except as noted in Subjective Physical Exam Physical Exam: Constitutional: No acute distress HEENT: PERRLA, positive ETT Respiratory system: Decreased air entry on the right side, no wheeze, no rhonchi, mild crackles left lower lobe CVS: S1-S2 positive, no murmurs or gallops, accentuated P2 Abdomen: Soft, nontender, nondistended, positive bowel sounds x4 Extremities: +2 pulses bilaterally radialis/ dorsalis pedis, no cyanosis, no edema Neuro: Sedated, breathing over the vent, following simple commands Psych: Unable to assess G/U: Positive De [place] Skin: no rashes, warm and dry Lymphatic: no cervical or axillary lymphadenopathy Results & Data Results & Data ([facility]) Vital Signs (Past 12 Hours) Vital Signs Temp Pulse Pulse Resp BP Pulse Ox O2 Del Method 12/21/21 07:00 36.8 C 82 14 97 12/21/21 07:00 112/64 12/21/21 07:30 85 12/21/21 07:24 15 12/21/21 07:23 82 15 98 Mechanical Vent 12/21/21 06:00 36.6 C 82 14 105/55 L 97 12/21/21 05:00 36.5 C 82 14 110/61 96 12/21/21 04:10 36.6 C 81 14 93/54 L 100 12/21/21 04:59 14 12/21/21 04:28 12/21/21 02:52 85 17 98 12/21/21 03:00 36.5 C 82 16 95 12/21/21 03:00 104/67 12/21/21 02:00 36.6 C 83 16 99/55 L 96 12/21/21 01:00 36.9 C 88 16 103/57 L 98 12/21/21 00:00 37.0 C 88 18 89/54 L 99 12/21/21 01:08 16 12/21/21 00:00 12/20/21 23:56 90 12/20/21 23:00 37.3 C 91 H 18 100/62 100 12/20/21 22:40 92 H 18 99 12/20/21 22:00 37.6 C H 98 H 24 104/60 99 12/20/21 21:00 37.7 C H 105 H 24 87/54 L 99 12/20/21 20:00 37.7 C H 106 H 25 H 96/62 L 98 12/20/21 20:06 FiO2 12/21/21 07:00 12/21/21 07:00 12/21/21 07:30 12/21/21 07:24 25 12/21/21 07:23 25 12/21/21 06:00 12/21/21 05:00 12/21/21 04:10 12/21/21 04:59 25 12/21/21 04:28 25 12/21/21 02:52 30 12/21/21 03:00 12/21/21 03:00 12/21/21 02:00 25 12/21/21 01:00 25 12/21/21 00:00 25 12/21/21 01:08 25 12/21/21 00:00 30 12/20/21 23:56 12/20/21 23:00 12/20/21 22:40 30 12/20/21 22:00 30 12/20/21 21:00 30 12/20/21 20:00 12/20/21 20:06 30 Laboratory Results 12/21/21 04:06 12/21/21 04:06 Coding Level of Care Code Critical Care 1st 30-74 mins Diagnoses Acute and chronic respiratory failure with hypoxia J96.21 COPD exacerbation J44.1 History of pneumonectomy Z98.890; Z90.2 Tobacco use disorder F17.200 Time Spent (min) 33
[2021-12-21] MEDS: methylPREDNISolone 40 MG in SYRINGE 0 ML IV SCH ×2 (07:58→20:29)
[2021-12-21] MEDS ORDERED: NON-FORMULARY MEDICATION (Fluticasone-Umeclidin-Vilanter [Trelegy Ellipta] 100-62.5-25 mcg INH SCH (09:00)
[2021-12-21] MEDS: FLUTICASONE FUROATE 100MCG 14 PUFFS/INHALER INH SCH (10:39)
[2021-12-21] MEDS: UMECLIDINIUM/VILANTEROL 62.5/25MCG 7 PUFFS/INHALER INH SCH (10:39)
--- NOTE | 2021-12-21 10:42 | XRay Report ---
XR chest 1V portable HISTORY: Respiratory failure. COMPARISON: Chest 12/20/2021. FINDINGS: The endotracheal tube terminates 4.7 cm from the donna. The nasogastric tube terminates be low the diaphragm. The tip is not included on this study. Right-sided pneumonectomy changes are again noted. The left lung is essentially clear. No left-sided pneumothorax or left pleural effusion. Old right humeral neck fracture. IMPRESSION: 1. No acute process within the chest. 2. Satisfactory support line placement. 3. Prior right pneumonectomy ACT 112: Negative or not required by law. Electronically signed by: Miguel Zhang M.D. 12/21/2021 10:41 AM
[2021-12-21] MEDS ORDERED: PANTOprazole 40 MG in SYRINGE 0 ML IV SCH (11:00)
--- NOTE | 2021-12-21 11:12 | Hospitalist Progress Note ---
Date of Service December 21, 2021 Assessment & Plan (1) Acute respiratory failure with hypoxia and hypercarbia: Plan: Secondary to COPD exacerbation VBG on arrival 7., intubated with altered mentation. VBG improved overnight and extubated AM of 12/21 to BiPAP Now alert, awake, oriented, no recollection of events on admission No PNA on CXR but has right pneumonectomy, severe COPD, continues to smoke -continued stay in ICU -wean off BiPAP but use at nighttime, asked CM to order Trilogy as she qualifies for this at home -continue IV Solu medrol, azithro, nebs and restart clarita maintenance inhalers when able -follow CXR -Appreciate PULM/Critical Care management -encourage smoking cessation -continue home O2 2LNC during day (2) Chronic obstructive pulmonary disease: Plan: as above (3) Nausea: Plan: ongoing since prior to admission, no abd pain, vomiting, or diarrhea severe malnourishment, nontender abd exam, LFs normal, no leukocytosis, no fevers -start ZOfran prn -could be gastritis-continue IV PPI (4) Hypomagnesemia: Plan: replaced and will replace again today (5) Tobacco use disorder: Plan: - smoking cessation counseling nicotine patch prn (6) B12 deficiency: Plan: not checked in 2.5 years-check level in AM also noted to have dx of B1 def but no lab in our chart-check B1 in AM and empirically start thiamine after that (7) Hypocalcemia: Plan: -Noted to be 8.4 in the ED, given 1gm calcium gluconate in the ED, improved (8) Depression: Plan: restart home mirtazapine when able to take po (9) SIADH (syndrome of inappropriate ADH production): Plan: Na+ 135, mild, 2/2 chrinc lung issues follow BMP (10) Thiamine deficiency: Plan: as above (11) Protein calorie malnutrition: Plan: Severe protein-calorie malnutrition, BMI 12.9 kg/m*m dietary consult when eating (12) History of pneumonectomy: Plan: -Stable findings on chest xray 2/2 previous lung CA (13) Underweight: Plan: as above Plan DVT proph-reduce Lovenox dose to 30mg for low body weight Dispo-continued stay ICU Change code status to DNR/Conditional Code-would want to be intubated again for pure resp failure if temporary but not for prolonged period of time Discussed care with Creative Consultant Admission and Anticipated Discharge Date Admission Date: December 20, 2021 Subjective Pt extubated this AM and is on BiPAP. Is awake and alert and interactive, wants to get off the BiPAP. She does not recall events that led to admission but reports was feeling a low appetite and nauseated without vomiting for the last few days. No diarrhea.No abd pain. Wants to know ho to prevent hypercarbia from occurring again and we discussed a Trilogy machine at home and PULM in agreement with this. Tele with NSR, no arrhythmias. Review of Systems Review of Systems: All systems reviewed & are unremarkable except as noted in HPI & below Physical Exam Constitutional: + thin, + cachectic and + frail appearing; no acute distress Eyes: + anicteric sclerae ENMT: BiPAP mask in place Neck: trachea midline, no thyromegaly Respiratory: normal respiratory effort; no cough Auscultation: + diminished lung sounds (throughout right hemithorax); no crackles, no rhonchi and no wheezes Cardiovascular: RRR, no murmur, no edema Chest (Breasts): Chest: normal inspection of chest Gastrointestinal (Abdomen): normal bowel sounds, soft, nontender, no hepatosplenomegaly Musculoskeletal: Extremities: + extremities abnormal to inspection (sarcopenia), no cyanosis and no clubbing Skin: no rashes, warm and dry Neurologic: moves all extremities and awake; no focal motor deficits Psychiatric: A+Ox3, euthymic affect Lymphatic: no lymphedema Results & Data Results & Data ([facility]) Vital Signs (Past 12 Hours) Vital Signs Temp Pulse Pulse Resp BP Pulse Ox O2 Del Method 12/21/21 09:53 12/21/21 08:45 101 H 16 98 12/21/21 07:00 36.8 C 82 14 97 12/21/21 07:00 112/64 12/21/21 07:30 85 12/21/21 07:24 15 12/21/21 07:23 82 15 98 Mechanical Vent 12/21/21 06:00 36.6 C 82 14 105/55 L 97 12/21/21 05:00 36.5 C 82 14 110/61 96 12/21/21 04:10 36.6 C 81 14 93/54 L 100 12/21/21 04:59 14 12/21/21 04:28 12/21/21 02:52 85 17 98 12/21/21 03:00 36.5 C 82 16 95 12/21/21 03:00 104/67 12/21/21 02:00 36.6 C 83 16 99/55 L 96 12/21/21 01:00 36.9 C 88 16 103/57 L 98 12/21/21 00:00 37.0 C 88 18 89/54 L 99 12/21/21 01:08 16 12/21/21 00:00 12/20/21 23:56 90 FiO2 12/21/21 09:53 25 12/21/21 08:45 30 12/21/21 07:00 12/21/21 07:00 12/21/21 07:30 12/21/21 07:24 25 12/21/21 07:23 25 12/21/21 06:00 12/21/21 05:00 12/21/21 04:10 12/21/21 04:59 25 12/21/21 04:28 25 12/21/21 02:52 30 12/21/21 03:00 12/21/21 03:00 12/21/21 02:00 25 12/21/21 01:00 25 12/21/21 00:00 25 12/21/21 01:08 25 12/21/21 00:00 30 12/20/21 23:56 Laboratory Results 12/21/21 12/21/21 12/21/21 Range/Units 08:43 04:52 04:06 WBC (4.8-10.8) K/ul RBC (3.93-5.22) M/uL Hgb (12.0-16.0) g/dl POC Hgb 11.6 L (12.0-16.0) g/dl Hct (34.1-44.9) % POC Hct 34 L (37-47) % MCV (80.0-100.0) fL MCH (25.0-34.0) pg MCHC (32.0-36.0) g/dL RDW Std Deviation (36.4-46.3) fL RDW Coeff of Niru (11.5-14.5) % Plt Count (130-400) K/uL MPV (9.4-12.3) fL Immature Gran % (Auto) % Neut % (Auto) % Lymph % (Auto) % [place] % (Auto) % Eos % (Auto) % Baso % (Auto) % Neut # (Auto) (1.4-6.5) K/uL Lymph # (Auto) (1.2-3.4) K/uL [place] # (Auto) (0.24-0.82) K/uL Eos # (Auto) (0-0.50) K/uL Baso # (Auto) (0-0.2) K/uL Immature Gran # (Auto) (0.00-0.02) K/uL D-Dimer (0-500) ug/L FEU Specimen Type Sample Site L Radial POC pH 7.44 (7.35-7.45) POC pCO2 47 H (35-46) mmHg POC pO2 117 H (80-95) mmHg POC HCO3 32 H (19-24) landen/L POC Total CO2 33 H (24-31) mmol/L POC Base Excess 8.0 H (-9-1.8) landen/L ABG pH (Temp Correct) 7.451 H (7.35-7.45) ABG pCO2 (Temp Corrct 46 (35-46) mmHg POC ABG pO2 at Pt Temp 114 POC ABG O2 Sat 99.0 H (90-95) % Gildardo Test Pass O2 Delivery Device Ventilator POC O2 Rate 16 Minute Ventilation POC FiO2 30 % Tidal Volume 355 PEEP 5 POC Sodium 133 L (135-144) mmol/L Sodium (136-145) mmol/L POC Potassium 4.2 (3.3-5.0) mmol/L Potassium (3.5-5.1) mmol/L Chloride (98-107) mmol/L Carbon Dioxide (21-32) mmol/L Anion Gap (3-11) BUN (6-23) mg/dl Creatinine (0.6-1.2) mg/dl Est Cr Clr Drug Dosing ml/min Est GFR ( Amer) ml/min Est GFR (Non-Af Amer) ml/min BUN/Creatinine Ratio (10-20) Glucose (70-99(Fasting)) mg/dl POC Glucose (70-99) mg/dl Lactate 2.0 (0.4-2.0) mmol/L Calcium (8.5-10.1) mg/dl Phosphorus 3.3 (2.5-4.9) mg/dl Magnesium (1.7-2.4) mg/dl Total Bilirubin (0.2-1.0) mg/dl AST (13-39) U/L ALT (7-52) U/L Alkaline Phosphatase (34-104) U/L Total Protein (6.0-8.3) gm/dl Albumin (3.4-5.0) gm/dl Globulin (2.5-4.0) gm/dl Albumin/Globulin Ratio (0.9-2) Procalcitonin (0-0.5) ng/ml TSH (0.300-4.500) uIu/ml Urine Color Urine Appearance (Clear) Urine pH (4.5-7.5) Ur Specific [place] (1.000-1.030) Urine Protein (Negative) Urine Glucose (UA) (Negative) Urine Ketones (Negative) Urine Blood (Negative) Urine Nitrite (Negative) Urine Bilirubin (Negative) Urine Urobilinogen (Negative) Ur Leukocyte Esterase (Negative) Urine WBC (Auto) (0-5) /hpf Urine RBC (Auto) (0-4) /hpf U Hyaline Cast (Auto) (0-5) /lpf U Epithel Cells (Auto) (0-5) /lpf Urine Bacteria (Auto) (Negative) Nasal Screen MRSA (PCR) (Negative) Urine Opiates Screen (Neg) Ur Methadone, Qual (Neg) Urine Barbiturates (Neg) Ur Phencyclidine (PCP) (Neg) U Amphetamin/Meth Scrn (Neg) MDMA (Ecstasy) Screen (Neg) U OH-Alprazolam Confrm U Benzodiazepines Scrn (Neg) 7-Amino Clonazepam Ur Nordiazepam Confirm U OH-ethylflurazepam U Lorazepam Cnf GC/MS U Oxazepam Confm GC/MS Ur Temazepam Confirm U OH-Triazolam Confirm U OH-Midazolam Confirm Ur Cocaine Metabolite (Neg) U Marijuana (THC) Screen (Neg) Drug Screen Comment 12/21/21 12/21/21 12/20/21 Range/Units 04:06 04:06 23:52 WBC 7.21 (4.8-10.8) K/ul RBC 3.57 L (3.93-5.22) M/uL Hgb 11.0 L (12.0-16.0) g/dl POC Hgb (12.0-16.0) g/dl Hct 32.4 L (34.1-44.9) % POC Hct (37-47) % MCV 90.8 D (80.0-100.0) fL MCH 30.8 (25.0-34.0) pg MCHC 34.0 (32.0-36.0) g/dL RDW Std Deviation 50.3 H (36.4-46.3) fL RDW Coeff of Niru 15.1 H (11.5-14.5) % Plt Count 138 (130-400) K/uL MPV 10.4 (9.4-12.3) fL Immature Gran % (Auto) 0.4 % Neut % (Auto) 95.6 % Lymph % (Auto) 2.1 % [place] % (Auto) 1.8 % Eos % (Auto) 0.0 % Baso % (Auto) 0.1 % Neut # (Auto) 6.89 H (1.4-6.5) K/uL Lymph # (Auto) 0.15 L (1.2-3.4) K/uL [place] # (Auto) 0.13 L (0.24-0.82) K/uL Eos # (Auto) 0.00 (0-0.50) K/uL Baso # (Auto) 0.01 (0-0.2) K/uL Immature Gran # (Auto) 0.03 H (0.00-0.02) K/uL D-Dimer (0-500) ug/L FEU Specimen Type Sample Site POC pH (7.35-7.45) POC pCO2 (35-46) mmHg POC pO2 (80-95) mmHg POC HCO3 (19-24) landen/L POC Total CO2 (24-31) mmol/L POC Base Excess (-9-1.8) landen/L ABG pH (Temp Correct) (7.35-7.45) ABG pCO2 (Temp Corrct (35-46) mmHg POC ABG pO2 at Pt Temp POC ABG O2 Sat (90-95) % Gildrado Test O2 Delivery Device POC O2 Rate Minute Ventilation POC FiO2 % Tidal Volume PEEP POC Sodium (135-144) mmol/L Sodium 135 L (136-145) mmol/L POC Potassium (3.3-5.0) mmol/L Potassium 4.2 (3.5-5.1) mmol/L Chloride 99 (98-107) mmol/L Carbon Dioxide 29 (21-32) mmol/L Anion Gap 7 (3-11) BUN 14 (6-23) mg/dl Creatinine 0.42 L (0.6-1.2) mg/dl Est Cr Clr Drug Dosing 68.1 ml/min Est GFR ( Amer) 122.9 ml/min Est GFR (Non-Af Amer) 106.1 ml/min BUN/Creatinine Ratio 33.3 H (10-20) Glucose 109 H (70-99(Fasting)) mg/dl POC Glucose 110 H (70-99) mg/dl Lactate (0.4-2.0) mmol/L Calcium 8.2 L (8.5-10.1) mg/dl Phosphorus (2.5-4.9) mg/dl Magnesium 1.7 (1.7-2.4) mg/dl Total Bilirubin 0.5 (0.2-1.0) mg/dl AST 13 (13-39) U/L ALT 6 L (7-52) U/L Alkaline Phosphatase 65 (34-104) U/L Total Protein 4.9 L (6.0-8.3) gm/dl Albumin 3.2 L (3.4-5.0) gm/dl Globulin 1.7 L (2.5-4.0) gm/dl Albumin/Globulin Ratio 1.9 (0.9-2) Procalcitonin (0-0.5) ng/ml TSH (0.300-4.500) uIu/ml Urine Color Urine Appearance (Clear) Urine pH (4.5-7.5) Ur Specific [place] (1.000-1.030) Urine Protein (Negative) Urine Glucose (UA) (Negative) Urine Ketones (Negative) Urine Blood (Negative) Urine Nitrite (Negative) Urine Bilirubin (Negative) Urine Urobilinogen (Negative) Ur Leukocyte Esterase (Negative) Urine WBC (Auto) (0-5) /hpf Urine RBC (Auto) (0-4) /hpf U Hyaline Cast (Auto) (0-5) /lpf U Epithel Cells (Auto) (0-5) /lpf Urine Bacteria (Auto) (Negative) Nasal Screen MRSA (PCR) (Negative) Urine Opiates Screen (Neg) Ur Methadone, Qual (Neg) Urine Barbiturates (Neg) Ur Phencyclidine (PCP) (Neg) U Amphetamin/Meth Scrn (Neg) MDMA (Ecstasy) Screen (Neg) U OH-Alprazolam Confrm U Benzodiazepines Scrn (Neg) 7-Amino Clonazepam Ur Nordiazepam Confirm U OH-ethylflurazepam U Lorazepam Cnf GC/MS U Oxazepam Confm GC/MS Ur Temazepam Confirm U OH-Triazolam Confirm U OH-Midazolam Confirm Ur Cocaine Metabolite (Neg) U Marijuana (THC) Screen (Neg) Drug Screen Comment 12/20/21 12/20/21 12/20/21 Range/Units 22:30 16:54 13:48 WBC (4.8-10.8) K/ul RBC (3.93-5.22) M/uL Hgb (12.0-16.0) g/dl POC Hgb 10.2 L (12.0-16.0) g/dl Hct (34.1-44.9) % POC Hct 30 L (37-47) % MCV (80.0-100.0) fL MCH (25.0-34.0) pg MCHC (32.0-36.0) g/dL RDW Std Deviation (36.4-46.3) fL RDW Coeff of Niur (11.5-14.5) % Plt Count (130-400) K/uL MPV (9.4-12.3) fL Immature Gran % (Auto) % Neut % (Auto) % Lymph % (Auto) % [place] % (Auto) % Eos % (Auto) % Baso % (Auto) % Neut # (Auto) (1.4-6.5) K/uL Lymph # (Auto) (1.2-3.4) K/uL [place] # (Auto) (0.24-0.82) K/uL Eos # (Auto) (0-0.50) K/uL Baso # (Auto) (0-0.2) K/uL Immature Gran # (Auto) (0.00-0.02) K/uL D-Dimer (0-500) ug/L FEU Specimen Type Sample Site R Radial POC pH 7.62 H* (7.35-7.45) POC pCO2 31 L (35-46) mmHg POC pO2 67 L (80-95) mmHg POC HCO3 32 H (19-24) landen/L POC Total CO2 33 H (24-31) mmol/L POC Base Excess 10.0 H (-9-1.8) landen/L ABG pH (Temp Correct) 7.612 H* (7.35-7.45) ABG pCO2 (Temp Corrct 32 L (35-46) mmHg POC ABG pO2 at Pt Temp 69 POC ABG O2 Sat 96.0 H (90-95) % Gildardo Test Pass O2 Delivery Device Ventilator POC O2 Rate 24 Minute Ventilation 355 POC FiO2 30 % Tidal Volume 355 PEEP 5 POC Sodium 132 L (135-144) mmol/L Sodium (136-145) mmol/L POC Potassium 3.8 (3.3-5.0) mmol/L Potassium (3.5-5.1) mmol/L Chloride (98-107) mmol/L Carbon Dioxide (21-32) mmol/L Anion Gap (3-11) BUN (6-23) mg/dl Creatinine (0.6-1.2) mg/dl Est Cr Clr Drug Dosing ml/min Est GFR ( Amer) ml/min Est GFR (Non-Af Amer) ml/min BUN/Creatinine Ratio (10-20) Glucose (70-99(Fasting)) mg/dl POC Glucose 144 H (70-99) mg/dl Lactate 3.9 H* (0.4-2.0) mmol/L Calcium (8.5-10.1) mg/dl Phosphorus (2.5-4.9) mg/dl Magnesium (1.7-2.4) mg/dl Total Bilirubin (0.2-1.0) mg/dl AST (13-39) U/L ALT (7-52) U/L Alkaline Phosphatase (34-104) U/L Total Protein (6.0-8.3) gm/dl Albumin (3.4-5.0) gm/dl Globulin (2.5-4.0) gm/dl Albumin/Globulin Ratio (0.9-2) Procalcitonin (0-0.5) ng/ml TSH (0.300-4.500) uIu/ml Urine Color Urine Appearance (Clear) Urine pH (4.5-7.5) Ur Specific [place] (1.000-1.030) Urine Protein (Negative) Urine Glucose (UA) (Negative) Urine Ketones (Negative) Urine Blood (Negative) Urine Nitrite (Negative) Urine Bilirubin (Negative) Urine Urobilinogen (Negative) Ur Leukocyte Esterase (Negative) Urine WBC (Auto) (0-5) /hpf Urine RBC (Auto) (0-4) /hpf U Hyaline Cast (Auto) (0-5) /lpf U Epithel Cells (Auto) (0-5) /lpf Urine Bacteria (Auto) (Negative) Nasal Screen MRSA (PCR) (Negative) Urine Opiates Screen (Neg) Ur Methadone, Qual (Neg) Urine Barbiturates (Neg) Ur Phencyclidine (PCP) (Neg) U Amphetamin/Meth Scrn (Neg) MDMA (Ecstasy) Screen (Neg) U OH-Alprazolam Confrm U Benzodiazepines Scrn (Neg) 7-Amino Clonazepam Ur Nordiazepam Confirm U OH-ethylflurazepam U Lorazepam Cnf GC/MS U Oxazepam Confm GC/MS Ur Temazepam Confirm U OH-Triazolam Confirm U OH-Midazolam Confirm Ur Cocaine Metabolite (Neg) U Marijuana (THC) Screen (Neg) Drug Screen Comment 12/20/21 12/20/21 12/20/21 Range/Units 12:20 12:20 12:20 WBC (4.8-10.8) K/ul RBC (3.93-5.22) M/uL Hgb (12.0-16.0) g/dl POC Hgb (12.0-16.0) g/dl Hct (34.1-44.9) % POC Hct (37-47) % MCV (80.0-100.0) fL MCH (25.0-34.0) pg MCHC (32.0-36.0) g/dL RDW Std Deviation (36.4-46.3) fL RDW Coeff of Niru (11.5-14.5) % Plt Count (130-400) K/uL MPV (9.4-12.3) fL Immature Gran % (Auto) % Neut % (Auto) % Lymph % (Auto) % [place] % (Auto) % Eos % (Auto) % Baso % (Auto) % Neut # (Auto) (1.4-6.5) K/uL Lymph # (Auto) (1.2-3.4) K/uL [place] # (Auto) (0.24-0.82) K/uL Eos # (Auto) (0-0.50) K/uL Baso # (Auto) (0-0.2) K/uL Immature Gran # (Auto) (0.00-0.02) K/uL D-Dimer (0-500) ug/L FEU Specimen Type Sample Site POC pH (7.35-7.45) POC pCO2 (35-46) mmHg POC pO2 (80-95) mmHg POC HCO3 (19-24) landen/L POC Total CO2 (24-31) mmol/L POC Base Excess (-9-1.8) landen/L ABG pH (Temp Correct) (7.35-7.45) ABG pCO2 (Temp Corrct (35-46) mmHg POC ABG pO2 at Pt Temp POC ABG O2 Sat (90-95) % Gildardo Test O2 Delivery Device POC O2 Rate Minute Ventilation POC FiO2 % Tidal Volume PEEP POC Sodium (135-144) mmol/L Sodium (136-145) mmol/L POC Potassium (3.3-5.0) mmol/L Potassium (3.5-5.1) mmol/L Chloride (98-107) mmol/L Carbon Dioxide (21-32) mmol/L Anion Gap (3-11) BUN (6-23) mg/dl Creatinine (0.6-1.2) mg/dl Est Cr Clr Drug Dosing ml/min Est GFR ( Amer) ml/min Est GFR (Non-Af Amer) ml/min BUN/Creatinine Ratio (10-20) Glucose (70-99(Fasting)) mg/dl POC Glucose (70-99) mg/dl Lactate (0.4-2.0) mmol/L Calcium (8.5-10.1) mg/dl Phosphorus (2.5-4.9) mg/dl Magnesium (1.7-2.4) mg/dl Total Bilirubin (0.2-1.0) mg/dl AST (13-39) U/L ALT (7-52) U/L Alkaline Phosphatase (34-104) U/L Total Protein (6.0-8.3) gm/dl Albumin (3.4-5.0) gm/dl Globulin (2.5-4.0) gm/dl Albumin/Globulin Ratio (0.9-2) Procalcitonin (0-0.5) ng/ml TSH (0.300-4.500) uIu/ml Urine Color Yellow Urine Appearance Clear (Clear) Urine pH 5.0 (4.5-7.5) Ur Specific [place] 1.018 (1.000-1.030) Urine Protein 1+ H (Negative) Urine Glucose (UA) Negative (Negative) Urine Ketones Trace H (Negative) Urine Blood Negative (Negative) Urine Nitrite Negative (Negative) Urine Bilirubin Negative (Negative) Urine Urobilinogen Negative (Negative) Ur Leukocyte Esterase Negative (Negative) Urine WBC (Auto) 1-5 (0-5) /hpf Urine RBC (Auto) 0-4 (0-4) /hpf U Hyaline Cast (Auto) 5-10 H (0-5) /lpf U Epithel Cells (Auto) 20-30 H (0-5) /lpf Urine Bacteria (Auto) Negative (Negative) Nasal Screen MRSA (PCR) (Negative) Urine Opiates Screen Neg (Neg) Ur Methadone, Qual Neg (Neg) Urine Barbiturates Neg (Neg) Ur Phencyclidine (PCP) Neg (Neg) U Amphetamin/Meth Scrn Neg (Neg) MDMA (Ecstasy) Screen Neg (Neg) U OH-Alprazolam Confrm Pending U Benzodiazepines Scrn Pos H (Neg) 7-Amino Clonazepam Pending Ur Nordiazepam Confirm Pending U OH-ethylflurazepam Pending U Lorazepam Cnf GC/MS Pending U Oxazepam Confm GC/MS Pending Ur Temazepam Confirm Pending U OH-Triazolam Confirm Pending U OH-Midazolam Confirm Pending Ur Cocaine Metabolite Neg (Neg) U Marijuana (THC) Screen Neg (Neg) Drug Screen Comment Pending 12/20/21 12/20/21 12/20/21 Range/Units 11:47 11:40 11:37 WBC (4.8-10.8) K/ul RBC (3.93-5.22) M/uL Hgb (12.0-16.0) g/dl POC Hgb (12.0-16.0) g/dl Hct (34.1-44.9) % POC Hct (37-47) % MCV (80.0-100.0) fL MCH (25.0-34.0) pg MCHC (32.0-36.0) g/dL RDW Std Deviation (36.4-46.3) fL RDW Coeff of Niru (11.5-14.5) % Plt Count (130-400) K/uL MPV (9.4-12.3) fL Immature Gran % (Auto) % Neut % (Auto) % Lymph % (Auto) % [place] % (Auto) % Eos % (Auto) % Baso % (Auto) % Neut # (Auto) (1.4-6.5) K/uL Lymph # (Auto) (1.2-3.4) K/uL [place] # (Auto) (0.24-0.82) K/uL Eos # (Auto) (0-0.50) K/uL Baso # (Auto) (0-0.2) K/uL Immature Gran # (Auto) (0.00-0.02) K/uL D-Dimer (0-500) ug/L FEU Specimen Type Sample Site R Radial POC pH 7.33 L (7.35-7.45) POC pCO2 55 H (35-46) mmHg POC pO2 191 H (80-95) mmHg POC HCO3 29 H (19-24) landen/L POC Total CO2 31 (24-31) mmol/L POC Base Excess 3.0 H (-9-1.8) landen/L ABG pH (Temp Correct) (7.35-7.45) ABG pCO2 (Temp Corrct (35-46) mmHg POC ABG pO2 at Pt Temp POC ABG O2 Sat 100.0 H (90-95) % Gildardo Test NA O2 Delivery Device Ventilator POC O2 Rate 26 Minute Ventilation POC FiO2 50 % Tidal Volume 350 PEEP 5 POC Sodium (135-144) mmol/L Sodium (136-145) mmol/L POC Potassium (3.3-5.0) mmol/L Potassium (3.5-5.1) mmol/L Chloride (98-107) mmol/L Carbon Dioxide (21-32) mmol/L Anion Gap (3-11) BUN (6-23) mg/dl Creatinine (0.6-1.2) mg/dl Est Cr Clr Drug Dosing ml/min Est GFR ( Amer) ml/min Est GFR (Non-Af Amer) ml/min BUN/Creatinine Ratio (10-20) Glucose (70-99(Fasting)) mg/dl POC Glucose (70-99) mg/dl Lactate (0.4-2.0) mmol/L Calcium (8.5-10.1) mg/dl Phosphorus (2.5-4.9) mg/dl Magnesium (1.7-2.4) mg/dl Total Bilirubin (0.2-1.0) mg/dl AST (13-39) U/L ALT (7-52) U/L Alkaline Phosphatase (34-104) U/L Total Protein (6.0-8.3) gm/dl Albumin (3.4-5.0) gm/dl Globulin (2.5-4.0) gm/dl Albumin/Globulin Ratio (0.9-2) Procalcitonin (0-0.5) ng/ml TSH 1.134 (0.300-4.500) uIu/ml Urine Color Urine Appearance (Clear) Urine pH (4.5-7.5) Ur Specific [place] (1.000-1.030) Urine Protein (Negative) Urine Glucose (UA) (Negative) Urine Ketones (Negative) Urine Blood (Negative) Urine Nitrite (Negative) Urine Bilirubin (Negative) Urine Urobilinogen (Negative) Ur Leukocyte Esterase (Negative) Urine WBC (Auto) (0-5) /hpf Urine RBC (Auto) (0-4) /hpf U Hyaline Cast (Auto) (0-5) /lpf U Epithel Cells (Auto) (0-5) /lpf Urine Bacteria (Auto) (Negative) Nasal Screen MRSA (PCR) Positive A (Negative) Urine Opiates Screen (Neg) Ur Methadone, Qual (Neg) Urine Barbiturates (Neg) Ur Phencyclidine (PCP) (Neg) U Amphetamin/Meth Scrn (Neg) MDMA (Ecstasy) Screen (Neg) U OH-Alprazolam Confrm U Benzodiazepines Scrn (Neg) 7-Amino Clonazepam Ur Nordiazepam Confirm U OH-ethylflurazepam U Lorazepam Cnf GC/MS U Oxazepam Confm GC/MS Ur Temazepam Confirm U OH-Triazolam Confirm U OH-Midazolam Confirm Ur Cocaine Metabolite (Neg) U Marijuana (THC) Screen (Neg) Drug Screen Comment 12/20/21 12/20/21 12/20/21 Range/Units 11:37 11:37 11:37 WBC (4.8-10.8) K/ul RBC (3.93-5.22) M/uL Hgb (12.0-16.0) g/dl POC Hgb (12.0-16.0) g/dl Hct (34.1-44.9) % POC Hct (37-47) % MCV (80.0-100.0) fL MCH (25.0-34.0) pg MCHC (32.0-36.0) g/dL RDW Std Deviation (36.4-46.3) fL RDW Coeff of Niru (11.5-14.5) % Plt Count (130-400) K/uL MPV (9.4-12.3) fL Immature Gran % (Auto) % Neut % (Auto) % Lymph % (Auto) % [place] % (Auto) % Eos % (Auto) % Baso % (Auto) % Neut # (Auto) (1.4-6.5) K/uL Lymph # (Auto) (1.2-3.4) K/uL [place] # (Auto) (0.24-0.82) K/uL Eos # (Auto) (0-0.50) K/uL Baso # (Auto) (0-0.2) K/uL Immature Gran # (Auto) (0.00-0.02) K/uL D-Dimer 1240 H* (0-500) ug/L FEU Specimen Type Sample Site POC pH (7.35-7.45) POC pCO2 (35-46) mmHg POC pO2 (80-95) mmHg POC HCO3 (19-24) landen/L POC Total CO2 (24-31) mmol/L POC Base Excess (-9-1.8) landen/L ABG pH (Temp Correct) (7.35-7.45) ABG pCO2 (Temp Corrct (35-46) mmHg POC ABG pO2 at Pt Temp POC ABG O2 Sat (90-95) % Gildardo Test O2 Delivery Device POC O2 Rate Minute Ventilation POC FiO2 % Tidal Volume PEEP POC Sodium (135-144) mmol/L Sodium (136-145) mmol/L POC Potassium (3.3-5.0) mmol/L Potassium (3.5-5.1) mmol/L Chloride (98-107) mmol/L Carbon Dioxide (21-32) mmol/L Anion Gap (3-11) BUN (6-23) mg/dl Creatinine (0.6-1.2) mg/dl Est Cr Clr Drug Dosing ml/min Est GFR ( Amer) ml/min Est GFR (Non-Af Amer) ml/min BUN/Creatinine Ratio (10-20) Glucose (70-99(Fasting)) mg/dl POC Glucose (70-99) mg/dl Lactate 4.1 H* (0.4-2.0) mmol/L Calcium (8.5-10.1) mg/dl Phosphorus (2.5-4.9) mg/dl Magnesium (1.7-2.4) mg/dl Total Bilirubin (0.2-1.0) mg/dl AST (13-39) U/L ALT (7-52) U/L Alkaline Phosphatase (34-104) U/L Total Protein (6.0-8.3) gm/dl Albumin (3.4-5.0) gm/dl Globulin (2.5-4.0) gm/dl Albumin/Globulin Ratio (0.9-2) Procalcitonin < 0.05 (0-0.5) ng/ml TSH (0.300-4.500) uIu/ml Urine Color Urine Appearance (Clear) Urine pH (4.5-7.5) Ur Specific [place] (1.000-1.030) Urine Protein (Negative) Urine Glucose (UA) (Negative) Urine Ketones (Negative) Urine Blood (Negative) Urine Nitrite (Negative) Urine Bilirubin (Negative) Urine Urobilinogen (Negative) Ur Leukocyte Esterase (Negative) Urine WBC (Auto) (0-5) /hpf Urine RBC (Auto) (0-4) /hpf U Hyaline Cast (Auto) (0-5) /lpf U Epithel Cells (Auto) (0-5) /lpf Urine Bacteria (Auto) (Negative) Nasal Screen MRSA (PCR) (Negative) Urine Opiates Screen (Neg) Ur Methadone, Qual (Neg) Urine Barbiturates (Neg) Ur Phencyclidine (PCP) (Neg) U Amphetamin/Meth Scrn (Neg) MDMA (Ecstasy) Screen (Neg) U OH-Alprazolam Confrm U Benzodiazepines Scrn (Neg) 7-Amino Clonazepam Ur Nordiazepam Confirm U OH-ethylflurazepam U Lorazepam Cnf GC/MS U Oxazepam Confm GC/MS Ur Temazepam Confirm U OH-Triazolam Confirm U OH-Midazolam Confirm Ur Cocaine Metabolite (Neg) U Marijuana (THC) Screen (Neg) Drug Screen Comment 12/20/21 Range/Units 09:54 WBC (4.8-10.8) K/ul RBC (3.93-5.22) M/uL Hgb (12.0-16.0) g/dl POC Hgb 13.3 (12.0-16.0) g/dl Hct (34.1-44.9) % POC Hct 39 (37-47) % MCV (80.0-100.0) fL MCH (25.0-34.0) pg MCHC (32.0-36.0) g/dL RDW Std Deviation (36.4-46.3) fL RDW Coeff of Niru (11.5-14.5) % Plt Count (130-400) K/uL MPV (9.4-12.3) fL Immature Gran % (Auto) % Neut % (Auto) % Lymph % (Auto) % [place] % (Auto) % Eos % (Auto) % Baso % (Auto) % Neut # (Auto) (1.4-6.5) K/uL Lymph # (Auto) (1.2-3.4) K/uL [place] # (Auto) (0.24-0.82) K/uL Eos # (Auto) (0-0.50) K/uL Baso # (Auto) (0-0.2) K/uL Immature Gran # (Auto) (0.00-0.02) K/uL D-Dimer (0-500) ug/L FEU Specimen Type Arterial Sample Site POC pH 7.17 L* (7.35-7.45) POC pCO2 107 H (35-46) mmHg POC pO2 224 H (80-95) mmHg POC HCO3 39 H (19-24) landen/L POC Total CO2 42 H* (24-31) mmol/L POC Base Excess 10.0 H (-9-1.8) landen/L ABG pH (Temp Correct) (7.35-7.45) ABG pCO2 (Temp Corrct (35-46) mmHg POC ABG pO2 at Pt Temp POC ABG O2 Sat (90-95) % Gildardo Test Acceptable O2 Delivery Device POC O2 Rate Minute Ventilation POC FiO2 % Tidal Volume PEEP POC Sodium 135 (135-144) mmol/L Sodium (136-145) mmol/L POC Potassium 4.1 (3.3-5.0) mmol/L Potassium (3.5-5.1) mmol/L Chloride (98-107) mmol/L Carbon Dioxide (21-32) mmol/L Anion Gap (3-11) BUN (6-23) mg/dl Creatinine (0.6-1.2) mg/dl Est Cr Clr Drug Dosing ml/min Est GFR ( Amer) ml/min Est GFR (Non-Af Amer) ml/min BUN/Creatinine Ratio (10-20) Glucose (70-99(Fasting)) mg/dl POC Glucose (70-99) mg/dl Lactate (0.4-2.0) mmol/L Calcium (8.5-10.1) mg/dl Phosphorus (2.5-4.9) mg/dl Magnesium (1.7-2.4) mg/dl Total Bilirubin (0.2-1.0) mg/dl AST (13-39) U/L ALT (7-52) U/L Alkaline Phosphatase (34-104) U/L Total Protein (6.0-8.3) gm/dl Albumin (3.4-5.0) gm/dl Globulin (2.5-4.0) gm/dl Albumin/Globulin Ratio (0.9-2) Procalcitonin (0-0.5) ng/ml TSH (0.300-4.500) uIu/ml Urine Color Urine Appearance (Clear) Urine pH (4.5-7.5) Ur Specific [place] (1.000-1.030) Urine Protein (Negative) Urine Glucose (UA) (Negative) Urine Ketones (Negative) Urine Blood (Negative) Urine Nitrite (Negative) Urine Bilirubin (Negative) Urine Urobilinogen (Negative) Ur Leukocyte Esterase (Negative) Urine WBC (Auto) (0-5) /hpf Urine RBC (Auto) (0-4) /hpf U Hyaline Cast (Auto) (0-5) /lpf U Epithel Cells (Auto) (0-5) /lpf Urine Bacteria (Auto) (Negative) Nasal Screen MRSA (PCR) (Negative) Urine Opiates Screen (Neg) Ur Methadone, Qual (Neg) Urine Barbiturates (Neg) Ur Phencyclidine (PCP) (Neg) U Amphetamin/Meth Scrn (Neg) MDMA (Ecstasy) Screen (Neg) U OH-Alprazolam Confrm U Benzodiazepines Scrn (Neg) 7-Amino Clonazepam Ur Nordiazepam Confirm U OH-ethylflurazepam U Lorazepam Cnf GC/MS U Oxazepam Confm GC/MS Ur Temazepam Confirm U OH-Triazolam Confirm U OH-Midazolam Confirm Ur Cocaine Metabolite (Neg) U Marijuana (THC) Screen (Neg) Drug Screen Comment Diagnostic Findings CXR personally reviewed by me and agree with the following report: Chest X-Ray 12/21/21 07:00 XR chest 1V portable HISTORY: Respiratory failure. COMPARISON: Chest 12/20/2021. FINDINGS: The endotracheal tube terminates 4.7 cm from the donna. The nasogastric tube terminates below the diaphragm. The tip is not included on this study. Right-sided pneumonectomy changes are again noted. The left lung is essentially clear. No left-sided pneumothorax or left pleural effusion. Old right humeral neck fracture. IMPRESSION: 1. No acute process within the chest. 2. Satisfactory support line placement. 3. Prior right pneumonectomy ACT 112: Negative or not required by law. Electronically signed by: Miguel Zhang M.D. 12/21/2021 10:41 AM PG Care Time/CCT Total # of Minutes Spent Total Time Spent with Patient: Total time spent is greater than 50% in coordination of care (as documented) at patient's floor/unit and/or counseling patient: Coding Level of Care Code 79926 Subseq Hosp Care Lvl 3 Diagnoses Acute respiratory failure with hypoxia and hypercarbia J96.01; J96.02 Chronic obstructive pulmonary disease J44.9 Nausea R11.0 Hypomagnesemia E83.42 Tobacco use disorder F17.200 B12 deficiency E53.8 Hypocalcemia E83.51 Depression F32.9 SIADH (syndrome of inappropriate ADH production) E22.2 Thiamine deficiency E51.9 Protein calorie malnutrition E46 History of pneumonectomy Z98.890; Z90.2 Underweight R63.6
[2021-12-21] MEDS: ONDANSETRON INJ 2 MG/ML 2 ML VIAL IV PRN (11:23)
[2021-12-21] MEDS: ENOXAPARIN INJ 30 MG/0.3 ML SYR SQ SCH (13:06)
[2021-12-21] MEDS: AZITHROMYCIN 500 MG in DEXTROSE 5% 250 ML IV SCH (13:07)
[2021-12-21] MEDS: D5W AND NSS 1,000 ML IV SCH (17:52)
[2021-12-22 06:35] LABS: Hematocrit (blood only) 32.7 % (34.1-44.9); Hemoglobin 10.7 g/dl (12.0-16.0); Mean Corpuscular Hgb Conc 32.7 g/dL (32.0-36.0); Mean Corpuscular Volume 94.8 fL (80.0-100.0); Mean Platelet Volume 10.3 fL (9.4-12.3); Platelet Count 141 K/uL (130-400); RDW Coefficient of Variation 15.6 % (11.5-14.5); RDW Standard Deviation 54.6 fL (36.4-46.3); Red Blood Count 3.45 M/uL (3.93-5.22); White Blood Count 8.35 K/ul (4.8-10.8)
[2021-12-22 06:38] LABS: Albumin Globulin Ratio 2.3 (0.9-2); Albumin Level 3.5 gm/dl (3.4-5.0); Bilirubin,Total 0.3 mg/dl (0.2-1.0); Calcium 8.1 mg/dl (8.5-10.1); Creatinine Clr Calc Pharmacy 75.4 ml/min; Est GFR (African American) 124.9 ml/min; Est GFR (Non-African American) 107.8 ml/min; Globulin 1.5 gm/dl (2.5-4.0); Iron 28 mcg/dl (35-150); Magnesium 1.5 mg/dl (1.7-2.4); Potassium 4.7 mmol/L (3.5-5.1); Total Iron Binding Cap Calc 284 mcg/dl (250-450); Transferrin (FE) Percent Satur 10 % (15-50); Unsaturated Iron Binding Cap 256 mcg/dl (155-355)
[2021-12-22 06:42] LABS: Immature Granulocytes # (auto) 0.03 K/uL (0.00-0.02); Immature Granulocytes % (auto) 0.4 %; Lymphocytes # (auto) 0.12 K/uL (1.2-3.4); Lymphocytes % (auto) 1.4 %; Monocytes # (auto) 0.21 K/uL (0.24-0.82); Monocytes % (auto) 2.5 %; Neutrophils # (auto) 7.99 K/uL (1.4-6.5); Neutrophils % (auto) 95.7 %
[2021-12-22 06:53] LABS: Ferritin 29.7 ng/ml (8-388)
[2021-12-22 06:58] LABS: Folate (Folic Acid) 6.39 ng/ml (>5.38)
[2021-12-22] MEDS: ALBUT/IPRATROP 3MG/0.5MG NEB 3 ML VIAL NEB SCH ×4 (07:38→19:40)
--- NOTE | 2021-12-22 08:23 | Critical Care Progress Note ---
Date of Service December 22, 2021 Assessment & Plan (1) Acute and chronic respiratory failure with hypoxia: (2) COPD exacerbation: (3) History of pneumonectomy: (4) Tobacco use disorder: Plan Reason for critically ill: Patient is a 66-year-old female with a history of chronic respiratory failure with progressively worsening shortness of breath for the past 2 days arrived at the emergency room requiring intubation and sequential mechanical ventilation currently being transferred to the ICU for management. Neuro - CAM ICU negative Cardiac - No chronic issues Respiratory - Acute on chronic hypercarbic hypoxemic respiratory failure -History of COPD, suspect likely due to exacerbation in the setting of single lung On 2 L oxygen at home Extubated 12/21/2021 -D-dimer elevated, patient saturating 99% on 25% FiO2, no concern for PE -Start DuoNeb, IV steroids, and azithromycin for assumed COPD exacerbation -Mucinex, flutter valve, incentive spirometry when off ventilator -Procalcitonin negative, unlikely to be infectious O2 saturation to keep oxygen between 88-92% COPD -See plan above -Continues to smoke even after status postpneumonectomy -Advocate for nicotine cessation -Nicotine patch -Restart home inhalers when able Hx of lung cancer s/p right pneumonectomy RENAL/LYTES - Monitor BUNs/creatinine Avoid nephrotoxic medication ICU electrolyte replacement protocol - [place] catheter for accurate I's and O's ENDO - ICU hyperglycemia protocol HEME - No issues ID - -azithromycin for COPD exacerbation as above -Procalcitonin negative -Chest x-ray negative for pneumonia -UA negative for urinary tract infection --DNR--> okay to be intubated if not for long-term --Prophylaxis VTE: Lovenox GI:Protonix Lines: Peripheral Diet: N.p.o. Plan: In/out: -140, urine output 495 Patient is having hoarseness of voice and she has failed bedside swallow eval by the nurse twice. Will get official speech eval. Go down on Solu-Medrol to 40 mg on a daily basis. Magnesium being replaced Due to chronic respiratory failure consequent to COPD, patient now requires a noninvasive home ventilator. Bilevel therapy with and without a rate would be ineffective as patient requires a volume targeted mode. Ventilation is required to decrease work of breathing and improve pulmonary status. Interruption of ventilator support would lead to decline of health status. NIMV settings should be AVAPS-AE; Breath rate: auto; Inspiratory time:auto; Sigh: off; Tidal Volume: 350-450, PS min: 4-8 PS max: 10-14; EPAP min: 4-8; EPAP max: 10-14; AVAPS rate: 14 during sleep and as needed Patient hemodynamically stable to be downgrade to medical floor Please note the above document was generated using voice recognition software. It may contain grammatical, syntax or spelling errors.Any formal questions or concerns about the content, text or information contained within the body of this dictation should be directly addressed to the provider for clarification. Admission and Anticipated Discharge Date Admission Date: December 20, 2021 Subjective Patient seen and examined at bedside. No acute distress, no adverse events overnight. Patient used BiPAP for couple of hours overnight. She was saturating 94% on 2 L at time of examination. Denies any headache, no nausea, no vomiting She has been having hoarseness of voice which is new to her. No chest pain, shortness of breath is improved. No headache Review of Systems Review of Systems: All systems reviewed & are unremarkable except as noted in Subjective Physical Exam Physical Exam: Constitutional: No acute distress HEENT: PERRLA, EOMI Respiratory system: Decreased air entry on the right side, no wheeze, no rhon chi, mild crackles left lower lobe CVS: S1-S2 positive, no murmurs or gallops, accentuated P2 Abdomen: Soft, nontender, nondistended, positive bowel sounds x4 Extremities: +2 pulses bilaterally radialis/ dorsalis pedis, no cyanosis, no edema Neuro: Awake alert oriented x3 Psych: Normal mood and affect G/U: Positive [place] Skin: no rashes, warm and dry Lymphatic: no cervical or axillary lymphadenopathy Results & Data Results & Data ([facility]) Vital Signs (Past 12 Hours) Vital Signs Temp Pulse Pulse Resp BP Pulse Ox O2 Del Method 12/22/21 07:44 89 12/22/21 07:38 95 H 24 95 Nasal Cannula 12/22/21 06:10 36.5 C 91 H 21 97 12/22/21 06:00 36.6 C 98 H 34 H 96 Nasal Cannula 12/22/21 06:00 111/61 12/22/21 05:50 36.3 C L 90 18 98 12/22/21 05:40 36.2 C L 90 21 96 12/22/21 05:30 36.4 C L 93 H 22 96 12/22/21 05:20 36.5 C 98 H 28 H 88 L 12/22/21 05:10 36.3 C L 91 H 17 98 12/22/21 05:00 36.5 C 86 15 93 12/22/21 05:00 93/54 L 12/22/21 04:50 36.5 C 92 H 27 H 94 12/22/21 04:40 36.4 C L 91 H 25 H 96 12/22/21 04:30 36.0 C L 93 H 25 H 98 12/22/21 04:20 35.6 C L 88 16 94 12/22/21 04:10 36.5 C 92 H 19 94 12/22/21 04:00 36.6 C 92 H 21 94 Nasal Cannula 12/22/21 04:00 94/57 L 12/22/21 03:50 36.7 C 89 15 98 12/22/21 03:40 36.7 C 95 H 28 H 94 12/22/21 03:30 36.7 C 91 H 17 95 12/22/21 03:20 36.6 C 95 H 41 H 95 12/22/21 03:10 36.6 C 95 H 23 93 12/22/21 03:00 36.5 C 98 H 29 H 91 12/22/21 03:00 95/54 L 12/22/21 02:50 36.1 C L 97 H 15 97 12/22/21 02:40 36.1 C L 95 H 26 H 96 12/22/21 02:30 36.5 C 93 H 18 94 12/22/21 02:20 36.3 C L 92 H 18 100 12/22/21 02:10 36.3 C L 94 H 21 98 12/22/21 02:00 36.3 C L 95 H 24 97 12/22/21 02:00 98/56 L 12/22/21 01:50 36.6 C 91 H 14 99 12/22/21 01:40 36.6 C 94 H 17 97 12/22/21 01:30 36.5 C 95 H 18 97 12/22/21 01:20 36.5 C 98 H 34 H 96 12/22/21 01:10 36.5 C 95 H 19 97 10/08/22 01:00 36.6 C 96 H 24 97 12/22/21 01:00 93/52 L 12/22/21 00:50 36.6 C 99 H 37 H 92 12/22/21 00:40 36.6 C 95 H 20 96 12/22/21 00:30 36.6 C 96 H 18 96 12/22/21 00:20 36.6 C 100 H 17 96 12/22/21 00:10 36.6 C 97 H 19 96 12/22/21 00:00 36.6 C 96 H 18 96 Nasal Cannula 12/22/21 00:00 95/57 L 12/21/21 23:50 36.4 C L 98 H 25 H 92 12/21/21 23:40 36.6 C 94 H 15 92 12/21/21 23:30 36.6 C 94 H 15 94 12/21/21 23:20 36.6 C 96 H 17 93 12/21/21 23:10 36.6 C 97 H 19 97 12/21/21 23:00 36.6 C 96 H 17 98 12/21/21 23:00 95/54 L 12/21/21 22:50 36.6 C 97 H 16 96 12/21/21 22:40 36.6 C 99 H 18 96 12/21/21 22:30 36.6 C 101 H 18 95 12/21/21 22:20 36.4 C L 98 H 19 90 12/21/21 22:10 36.4 C L 97 H 19 91 12/21/21 22:00 36.4 C L 99 H 21 93 12/21/21 22:00 97/57 L 12/21/21 21:50 36.0 C L 100 H 17 98 12/21/21 21:40 36.2 C L 105 H 21 90 12/21/21 21:30 36.6 C 100 H 20 97 12/21/21 21:20 36.6 C 101 H 20 93 12/21/21 21:10 36.7 C 100 H 16 96 12/21/21 21:00 36.6 C 99 H 20 96 12/21/21 21:00 98/56 L 12/21/21 20:50 36.6 C 101 H 14 96 12/21/21 20:40 36.6 C 101 H 22 96 12/21/21 20:30 36.7 C 102 H 16 96 12/21/21 23:33 100 H 12/21/21 21:54 100 H 24 94 O2 Flow Rate 12/22/21 07:44 12/22/21 07:38 2 12/22/21 06:10 12/22/21 06:00 2 12/22/21 06:00 12/22/21 05:50 12/22/21 05:40 12/22/21 05:30 12/22/21 05:20 12/22/21 05:10 12/22/21 05:00 12/22/21 05:00 12/22/21 04:50 12/22/21 04:40 12/22/21 04:30 12/22/21 04:20 12/22/21 04:10 12/22/21 04:00 1 12/22/21 04:00 12/22/21 03:50 12/22/21 03:40 12/22/21 03:30 12/22/21 03:20 12/22/21 03:10 12/22/21 03:00 12/22/21 03:00 12/22/21 02:50 12/22/21 02:40 12/22/21 02:30 12/22/21 02:20 12/22/21 02:10 12/22/21 02:00 12/22/21 02:00 12/22/21 01:50 12/22/21 01:40 12/22/21 01:30 12/22/21 01:20 12/22/21 01:10 12/22/21 01:00 12/22/21 01:00 12/22/21 00:50 12/22/21 00:40 12/22/21 00:30 12/22/21 00:20 12/22/21 00:10 12/22/21 00:00 2 12/22/21 00:00 12/21/21 23:50 12/21/21 23:40 12/21/21 23:30 12/21/21 23:20 12/21/21 23:10 12/21/21 23:00 12/21/21 23:00 12/21/21 22:50 12/21/21 22:40 12/21/21 22:30 12/21/21 22:20 12/21/21 22:10 12/21/21 22:00 12/21/21 22:00 12/21/21 21:50 12/21/21 21:40 12/21/21 21:30 12/21/21 21:20 12/21/21 21:10 12/21/21 21:00 12/21/21 21:00 12/21/21 20:50 12/21/21 20:40 12/21/21 20:30 12/21/21 23:33 12/21/21 21:54 2 Laboratory Results 12/22/21 05:17 12/22/21 05:17 Coding Level of Care Code 99230 Subseq Hosp Care [facility] 3 Diagnoses Acute and chronic respiratory failure with hypoxia J96.21 COPD exacerbation J44.1 History of pneumonectomy Z98.890; Z90.2 Tobacco use disorder F17.200
[2021-12-22] MEDS: MAGNESIUM SULFATE / D5W 1 GM/100 ML BAG IV SCH ×2 (09:08→11:00)
[2021-12-22] MEDS: methylPREDNISolone 40 MG in SYRINGE 0 ML IV SCH (09:08)
[2021-12-22] MEDS: UMECLIDINIUM/VILANTEROL 62.5/25MCG 7 PUFFS/INHALER INH SCH (09:09)
[2021-12-22] MEDS: FLUTICASONE FUROATE 100MCG 14 PUFFS/INHALER INH SCH (09:09)
[2021-12-22] MEDS: ACETAMINOPHEN 1,000 MG/100 ML VIAL IV PRN ×2 (10:06→18:12)
[2021-12-22] MEDS: IRON SUCROSE 300 MG in SODIUM CHLORIDE 0.9% 250 ML IV SCH (10:30)
[2021-12-22] MEDS: CYANOCOBALAMIN 1000 MCG/ML VIAL IM SCH (11:19)
[2021-12-22] MEDS: ENOXAPARIN INJ 30 MG/0.3 ML SYR SQ SCH (12:27)
[2021-12-22] MEDS: AZITHROMYCIN 500 MG in DEXTROSE 5% 250 ML IV SCH (12:27)
[2021-12-22] MEDS: D5W AND NSS 1,000 ML IV SCH (12:27)
[2021-12-22] MEDS: NICOTINE 14 MG/24 HR PATCH TD SCH (16:47)
--- NOTE | 2021-12-22 20:44 | Hospitalist Progress Note ---
Date of Service December 22, 2021 Assessment & Plan (1) Acute respiratory failure with hypoxia and hypercarbia: Plan: Secondary to COPD exacerbation VBG on arrival [id number], intubated with altered mentation. VBG improved overnight and extubated AM of 107 to BiPAP Now alert, awake, oriented, no recollection of events on admission No PNA on CXR but has right pneumonectomy, severe COPD, continues to smoke Remains dyspneic at rest and anxious. Having difficulty tolerating BiPAP overnight She is interested in further discussions about palliative care in the setting of end-stage COPD to include low-dose opioids for treatment of dyspnea -Downgrade out of ICU to medical/surgical unit -Continue BiPAP use at nighttime as tolerated, asked CM to order Trilogy as she qualifies for this at home -continue IV Solu medrol but decreased dose to 40 Mg once daily; continue a zithro, nebs, and home maintenance inhalers -We will consider adding on low-dose Roxanol 2.5 Mg p.o. every 4 hours as needed for dyspnea-we will further discussed with her and include family in the di scussion tomorrow -follow CXR as needed -Appreciate PULM/Critical Care management -encourage smoking cessation -continue home O2 2LNC during day (2) Chronic obstructive pulmonary disease: Plan: as above (3) Nausea: Plan: ongoing since prior to admission, no abd pain, vomiting, or diarrhea severe malnourishment, nontender abd exam, LFs normal, no leukocytosis, no fevers Somewhat improved today Continue Zofran as needed -could be gastritis-convert IV PPI to p.o. PPI especially while on steroids -Continue IV fluids until tolerating p.o. more (4) Hypomagnesemia: Plan: Replace again today (5) Tobacco use disorder: Plan: - smoking cessation counseling nicotine patch prn (6) B12 deficiency: Plan: not checked in 2.5 years-checked level here and again low at 251-give IM B12 also noted to have dx of B1 def but no lab in our chart-check B1 in AM-pending Will empirically start thiamine tomorrow (7) Depression: Plan: restart home mirtazapine tonight (8) SIADH (syndrome of inappropriate ADH production): Plan: Na+ 133, mild, 2/2 chronc lung issues follow BMP (9) Thiamine deficiency: Plan: as above (10) Protein calorie malnutrition: Plan: Severe protein-calorie malnutrition, BMI 12.9 kg/m*m dietary consult when eating Secondary to end-stage COPD (11) History of pneumonectomy: Plan: -Stable findings on chest xray 2/2 previous lung CA (12) Underweight: Plan: as above Plan DVT proph-continue reduced dose of Lovenox 30mg for low body weight Dispo-continued stay but downgrade to medical/surgical unit Code status DNR/Conditional Code-would want to be intubated again for pure resp failure if temporary but not for prolonged period of time Will consider palliative medicine consultation on Friday to further discuss goals of care with end-stage COPD and palliation with opioids for dyspnea Admission and Anticipated Discharge Date Admission Date: December 20, 2021 Subjective Patient reports she had difficulty tolerating the BiPAP overnight. She continues to feel quite dyspneic just at rest and is having trouble eating due to aspiration because of her breathlessness while eating. She has a very hoarse voice today status post extubation yesterday and was seen by speech therapy and given tactics to prevent aspiration. We did discuss palliation with end-stage COPD and she is interested in discussing this more and potentially starting on low-dose opioids for dyspnea. She was downgraded out of the ICU this morning. Review of Systems Review of Systems: All systems reviewed & are unremarkable except as noted in HPI & below Physical Exam Constitutional: + thin, + cachectic and + frail appearing Eyes: + anicteric sclerae Neck: trachea midline, no thyromegaly Respiratory: + tachypneic; no cough Auscultation: + diminished lung sounds (throughout right hemithorax); no crackles, no rhonchi and no wheezes Cardiovascular: RRR, no murmur, no edema Chest (Breasts): Chest: normal inspection of chest Gastrointestinal (Abdomen): normal bowel sounds, soft, nontender, no hepatosplenomegaly Musculoskeletal: Extremities: + extremities abnormal to inspection (sarcopenia), no cyanosis and no clubbing Skin: no rashes, warm and dry Neurologic: moves all extremities and awake; no focal motor deficits Psychiatric: Orientation: alert, oriented x 3 and cooperative Affect: + anxious affect Lymphatic: no lymphedema Results & Data Results & Data ([facility]) Vital Signs (Past 12 Hours) Vital Signs Temp Pulse Pulse Pulse Resp BP BP 10/08/22 19:40 88 18 12/22/21 16:06 105 H 24 12/22/21 15:31 37.1 C 101 H 20 106/67 12/22/21 12:30 36.9 C 98 H 32 H 104/64 12/22/21 12:30 12/22/21 11:45 37.0 C 112 H 22 12/22/21 11:45 109/70 12/22/21 11:30 37.0 C 108 H 35 H 12/22/21 11:30 106/60 12/22/21 11:16 37.0 C 94 H 25 H 12/22/21 11:16 104/57 L 12/22/21 11:15 37.0 C 94 H 20 12/22/21 11:00 37.0 C 94 H 19 12/22/21 11:00 104/57 L 12/22/21 10:45 37.0 C 100 H 17 12/22/21 10:45 102/60 12/22/21 10:42 37.0 C 101 H 28 H 12/22/21 10:42 110/60 12/22/21 10:00 37.0 C 99 H 21 12/22/21 10:00 112/64 12/22/21 11:17 95 H 18 12/22/21 09:00 36.7 C 104 H 22 12/22/21 09:00 102/67 Pulse Ox O2 Del Method O2 Flow Rate 12/22/21 19:40 92 Nasal Cannula 2 12/22/21 16:06 97 Nasal Cannula 2 12/22/21 15:31 95 Nasal Cannula 2 12/22/21 12:30 94 Nasal Cannula 2 12/22/21 12:30 Nasal Cannula 2 12/22/21 11:45 86 L 12/22/21 11:45 12/22/21 11:30 91 12/22/21 11:30 12/22/21 11:16 97 12/22/21 11:16 12/22/21 11:15 94 12/22/21 11:00 95 12/22/21 11:00 12/22/21 10:45 93 12/22/21 10:45 12/22/21 10:42 94 12/22/21 10:42 12/22/21 10:00 97 12/22/21 10:00 10/08/22 11:17 95 Nasal Cannula 2 12/22/21 09:00 92 12/22/21 09:00 Laboratory Results 12/22/21 12/22/21 12/22/21 Range/Units 05:21 05:17 05:17 WBC (4.8-10.8) K/ul RBC (3.93-5.22) M/uL Hgb (12.0-16.0) g/dl Hct (34.1-44.9) % MCV (80.0-100.0) fL MCH (25.0-34.0) pg MCHC (32.0-36.0) g/dL RDW Std Deviation (36.4-46.3) fL RDW Coeff of Niru (11.5-14.5) % Plt Count (130-400) K/uL MPV (9.4-12.3) fL Immature Gran % (Auto) % Neut % (Auto) % Lymph % (Auto) % [place] % (Auto) % Eos % (Auto) % Baso % (Auto) % Neut # (Auto) (1.4-6.5) K/uL Lymph # (Auto) (1.2-3.4) K/uL [place] # (Auto) (0.24-0.82) K/uL Eos # (Auto) (0-0.50) K/uL Baso # (Auto) (0-0.2) K/uL Immature Gran # (Auto) (0.00-0.02) K/uL Sodium (136-145) mmol/L Potassium (3.5-5.1) mmol/L Chloride (98-107) mmol/L Carbon Dioxide (21-32) mmol/L Anion Gap (3-11) BUN (6-23) mg/dl Creatinine (0.6-1.2) mg/dl Est Cr Clr Drug Dosing ml/min Est GFR ( Amer) ml/min Est GFR (Non-Af Amer) ml/min BUN/Creatinine Ratio (10-20) Glucose (70-99(Fasting)) mg/dl POC Glucose 122 H (70-99) mg/dl Calcium (8.5-10.1) mg/dl Phosphorus 4.0 (2.5-4.9) mg/dl Magnesium (1.7-2.4) mg/dl Iron (35-150) mcg/dl TIBC (250-450) mcg/dl Unsaturated IBC (155-355) mcg/dl Transferrin % Sat (15-50) % Ferritin (8-388) ng/ml Total Bilirubin (0.2-1.0) mg/dl AST (13-39) U/L ALT (7-52) U/L Alkaline Phosphatase (34-104) U/L Total Protein (6.0-8.3) gm/dl Albumin (3.4-5.0) gm/dl Globulin (2.5-4.0) gm/dl Albumin/Globulin Ratio (0.9-2) Whole Bld Vitamin B1 Pending Vitamin B12 (180-914) pg/ml Folate (>5.38) ng/ml 12/22/21 12/22/21 12/22/21 Range/Units 05:17 05:17 05:17 WBC (4.8-10.8) K/ul RBC (3.93-5.22) M/uL Hgb (12.0-16.0) g/dl Hct (34.1-44.9) % MCV (80.0-100.0) fL MCH (25.0-34.0) pg MCHC (32.0-36.0) g/dL RDW Std Deviation (36.4-46.3) fL RDW Coeff of Niru (11.5-14.5) % Plt Count (130-400) K/uL MPV (9.4-12.3) fL Immature Gran % (Auto) % Neut % (Auto) % Lymph % (Auto) % [place] % (Auto) % Eos % (Auto) % Baso % (Auto) % Neut # (Auto) (1.4-6.5) K/uL Lymph # (Auto) (1.2-3.4) K/uL [place] # (Auto) (0.24-0.82) K/uL Eos # (Auto) (0-0.50) K/uL Baso # (Auto) (0-0.2) K/uL Immature Gran # (Auto) (0.00-0.02) K/uL Sodium 133 L (136-145) mmol/L Potassium 4.7 (3.5-5.1) mmol/L Chloride 98 (98-107) mmol/L Carbon Dioxide 32 (21-32) mmol/L Anion Gap 3 (3-11) BUN 14 (6-23) mg/dl Creatinine 0.40 L (0.6-1.2) mg/dl Est Cr Clr Drug Dosing 75.4 ml/min Est GFR ( Amer) 124.9 ml/min Est GFR (Non-Af Amer) 107.8 ml/min BUN/Creatinine Ratio 35.0 H (10-20) Glucose 125 H (70-99(Fasting)) mg/dl POC Glucose (70-99) mg/dl Calcium 8.1 L (8.5-10.1) mg/dl Phosphorus (2.5-4.9) mg/dl Magnesium 1.5 L (1.7-2.4) mg/dl Iron 28 L (35-150) mcg/dl TIBC 284 (250-450) mcg/dl Unsaturated IBC 256 (155-355) mcg/dl Transferrin % Sat 10 L (15-50) % Ferritin 29.7 (8-388) ng/ml Total Bilirubin 0.3 (0.2-1.0) mg/dl AST 17 (13-39) U/L ALT 8 (7-52) U/L Alkaline Phosphatase 65 (34-104) U/L Total Protein 5.0 L (6.0-8.3) gm/dl Albumin 3.5 (3.4-5.0) gm/dl Globulin 1.5 L (2.5-4.0) gm/dl Albumin/Globulin Ratio 2.3 H (0.9-2) Whole Bld Vitamin B1 Vitamin B12 251 (180-914) pg/ml Folate 6.39 (>5.38) ng/ml 12/22/21 12/21/21 Range/Units 05:17 23:45 WBC 8.35 (4.8-10.8) K/ul RBC 3.45 L (3.93-5.22) M/uL Hgb 10.7 L (12.0-16.0) g/dl Hct 32.7 L (34.1-44.9) % MCV 94.8 (80.0-100.0) fL MCH 31.0 (25.0-34.0) pg MCHC 32.7 (32.0-36.0) g/dL RDW Std Deviation 54.6 H (36.4-46.3) fL RDW Coeff of Niru 15.6 H (11.5-14.5) % Plt Count 141 (130-400) K/uL MPV 10.3 (9.4-12.3) fL Immature Gran % (Auto) 0.4 % Neut % (Auto) 95.7 % Lymph % (Auto) 1.4 % Brantley % (Auto) 2.5 % Eos % (Auto) 0.0 % Baso % (Auto) 0.0 % Neut # (Auto) 7.99 H (1.4-6.5) K/uL Lymph # (Auto) 0.12 L (1.2-3.4) K/uL [place] # (Auto) 0.21 L (0.24-0.82) K/uL Eos # (Auto) 0.00 (0-0.50) K/uL Baso # (Auto) 0.00 (0-0.2) K/uL Immature Gran # (Auto) 0.03 H (0.00-0.02) K/uL Sodium (136-145) mmol/L Potassium (3.5-5.1) mmol/L Chloride (98-107) mmol/L Carbon Dioxide (21-32) mmol/L Anion Gap (3-11) BUN (6-23) mg/dl Creatinine (0.6-1.2) mg/dl Est Cr Clr Drug Dosing ml/min Est GFR ( Amer) ml/min Est GFR (Non-Af Amer) ml/min BUN/Creatinine Ratio (10-20) Glucose (70-99(Fasting)) mg/dl POC Glucose 121 H (70-99) mg/dl Calcium (8.5-10.1) mg/dl Phosphorus (2.5-4.9) mg/dl Magnesium (1.7-2.4) mg/dl Iron (35-150) mcg/dl TIBC (250-450) mcg/dl Unsaturated IBC (155-355) mcg/dl Transferrin % Sat (15-50) % Ferritin (8-388) ng/ml Total Bilirubin (0.2-1.0) mg/dl AST (13-39) U/L ALT (7-52) U/L Alkaline Phosphatase (34-104) U/L Total Protein (6.0-8.3) gm/dl Albumin (3.4-5.0) gm/dl Globulin (2.5-4.0) gm/dl Albumin/Globulin Ratio (0.9-2) Whole Bld Vitamin B1 Vitamin B12 (180-914) pg/ml Folate (>5.38) ng/ml PG Care Time/CCT Total # of Minutes Spent Total Time Spent with Patient: Total time spent is greater than 50% in coordination of care (as documented) at patient's floor/unit and/or counseling patient: Coding Level of Care Code 00269 Subseq Hosp Care Lvl 3 Diagnoses Acute respiratory failure with hypoxia and hypercarbia J96.01; J96.02 Chronic obstructive pulmonary disease J44.9 Nausea R11.0 Hypomagnesemia E83.42 Tobacco use disorder F17.200 B12 deficiency E53.8 Depression F32.9 SIADH (syndrome of inappropriate ADH production) E22.2 Thiamine deficiency E51.9 Protein calorie malnutrition E46 History of pneumonectomy Z98.890; Z90.2 Underweight R63.6
[2021-12-22] MEDS: MIRTAZAPINE TAB 15 MG TAB PO SCH (22:20)
[2021-12-23] MEDS: ACETAMINOPHEN 1,000 MG/100 ML VIAL IV PRN (04:53)
[2021-12-23 06:36] LABS: Albumin Globulin Ratio 1.7 (0.9-2); Albumin Level 3.3 gm/dl (3.4-5.0); BUN Creatinine Ratio 32.5 (10-20); Bilirubin,Total 0.3 mg/dl (0.2-1.0); Calcium 8.2 mg/dl (8.5-10.1); Creatinine Clr Calc Pharmacy 75.4 ml/min; Est GFR (African American) 124.9 ml/min; Est GFR (Non-African American) 107.8 ml/min; Globulin 1.9 gm/dl (2.5-4.0); Hematocrit (blood only) 32.8 % (34.1-44.9); Hemoglobin 10.4 g/dl (12.0-16.0); Magnesium 1.6 mg/dl (1.7-2.4); Mean Corpuscular Hemoglobin 30.6 pg (25.0-34.0); Mean Corpuscular Hgb Conc 31.7 g/dL (32.0-36.0); Mean Corpuscular Volume 96.5 fL (80.0-100.0); Mean Platelet Volume 10.1 fL (9.4-12.3); Platelet Count 133 K/uL (130-400); Potassium 4.1 mmol/L (3.5-5.1); RDW Coefficient of Variation 15.5 % (11.5-14.5); RDW Standard Deviation 55.6 fL (36.4-46.3); Total Protein 5.2 gm/dl (6.0-8.3); White Blood Count 6.82 K/ul (4.8-10.8)
[2021-12-23 06:44] LABS: Basophils # (auto) 0.01 K/uL (0-0.2); Basophils % (auto) 0.1 %; Immature Granulocytes # (auto) 0.02 K/uL (0.00-0.02); Immature Granulocytes % (auto) 0.3 %; Lymphocytes # (auto) 0.45 K/uL (1.2-3.4); Lymphocytes % (auto) 6.6 %; Monocytes # (auto) 0.69 K/uL (0.24-0.82); Monocytes % (auto) 10.1 %; Neutrophils # (auto) 5.65 K/uL (1.4-6.5); Neutrophils % (auto) 82.9 %
[2021-12-23] MEDS: ALBUT/IPRATROP 3MG/0.5MG NEB 3 ML VIAL NEB SCH ×4 (07:44→19:33)
[2021-12-23 07:51] LABS: 7-Aminoclonaz, Confirm NEGATIVE ng/mL (<25); Hydro-Alp Ur, GC/MS NEGATIVE ng/mL (<25); Hydroxyethylflurazepam, Conf NEGATIVE ng/mL (<50); Hydroxymidazolam Ur, GC/MS 1950 ng/mL (<50); Hydroxytriazolam NEGATIVE ng/mL (<50); Lorazepam, Ur GC/MS NEGATIVE ng/mL (<50); Nordiazepam, Confirm NEGATIVE ng/mL (<50); Oxazepam Ur, GC/MS NEGATIVE ng/mL (<50); Temazepam, Confirm NEGATIVE ng/mL (<50)
[2021-12-23] MEDS: D5W AND NSS 1,000 ML IV SCH (09:09)
[2021-12-23] MEDS: UMECLIDINIUM/VILANTEROL 62.5/25MCG 7 PUFFS/INHALER INH SCH (09:36)
[2021-12-23] MEDS: FLUTICASONE FUROATE 100MCG 14 PUFFS/INHALER INH SCH (09:36)
[2021-12-23] MEDS: NICOTINE 14 MG/24 HR PATCH TD SCH (09:37)
[2021-12-23] MEDS: THIAMINE HCL 100 MG TAB PO SCH (09:37)
[2021-12-23] MEDS: PANTOprazole 40 MG TAB PO SCH (09:37)
[2021-12-23] MEDS: CYANOCOBALAMIN 1000 MCG/ML VIAL IM SCH (09:38)
[2021-12-23] MEDS: IRON SUCROSE 300 MG in SODIUM CHLORIDE 0.9% 250 ML IV SCH (09:39)
[2021-12-23] MEDS: methylPREDNISolone 40 MG in SYRINGE 0 ML IV SCH (10:13)
--- NOTE | 2021-12-23 10:43 | Pulmonology Progress Note ---
Date of Service December 23, 2021 Assessment & Plan (1) Acute and chronic respiratory failure with hypoxia: (2) COPD exacerbation: (3) History of pneumonectomy: (4) Tobacco use disorder: Plan --Acute on chronic hypercarbic hypoxemic respiratory failure -History of COPD, suspect likely due to exacerbation in the setting of single lung On 2 L oxygen at home Extubated 12/21/2021 On Trelegy inhaler at home. Patient will benefit from AVAPS machine. Order has been placed and trimming caser made aware. -D-dimer elevated, patient saturating 99% on 25% FiO2, no concern for PE -Start DuoNeb, IV steroids, and azithromycin for assumed COPD exacerbation -Mucinex, flutter valve, incentive spirometry when off ventilator -Procalcitonin negative, unlikely to be infectious O2 saturation to keep oxygen between 88-92% COPD -See plan above -Continues to smoke even after status postpneumonectomy -Advocate for nicotine cessation -Nicotine patch -Restart home inhalers when able Hx of lung cancer s/p right pneumonectomy Plan: Okay to transition to p.o. prednisone as of tomorrow 40 mg for 3 days followed by 20 mg for 3 days and then stop. Continue with Trelegy inhaler on a daily basis at home along with as needed albuterol Addition of azithromycin 250 mg Vnmlop-Wwwxhofbs-Kkqgls could be thought of. QTC was 453 on 12/20/2021 Add Mucomyst nebulized twice a day Outpatient follow-up with pulmonary Palliative care consult should be considered. Case was discussed with Dr. Rondon No further recommendation for pulmonary perspective. Will sign off, please call directly with any questions Please note the above document was generated using voice recognition software. It may contain grammatical, syntax or spelling errors.Any formal questions or concerns about the content, text or information contained within the body of this dictation should be directly addressed to the provider for clarification. Admission and Anticipated Discharge Date Admission Date: December 20, 2021 Subjective Patient seen and examined at bedside. No acute distress, no adverse events overnight. Patient was in mild respiratory distress. She still has hoarse voice. Was saturating 91% on 2 L nasal cannula at the time of examination with heart rate in the low 100s. Denies any chest pain, no headache, no nausea or vomiting. Review of Systems Review of Systems: All systems reviewed & are unremarkable except as noted in Subjective Physical Exam Physical Exam: Constitutional: No acute distress HEENT: PERRLA, EOMI Respiratory system: Decreased air entry on the right side, no wheeze, no rhonchi, mild crackles left lower lobe CVS: S1-S2 positive, no murmurs or gallops, accentuated P2 Abdomen: Soft, nontender, nondistended, positive bowel sounds x4 Extremities: +2 pulses bilaterally radialis/ dorsalis pedis, no cyanosis, no edema Neuro: Awake alert oriented x3 Psych: Normal mood and affect G/U: Positive [place] Skin: no rashes, warm and dry Lymphatic: no cervical or axillary lymphadenopathy Results & Data Results & Data ([facility]) Vital Signs (Past 12 Hours) Vital Signs Temp Pulse Resp BP Pulse Ox O2 Del Method O2 Flow Rate 12/23/21 07:44 93 H 24 99 Nasal Cannula 2 12/23/21 07:25 37 C 85 20 115/72 100 Nasal Cannula 2 12/22/21 23:10 36.4 C L 97 H 20 117/67 97 Nasal Cannula 3 Laboratory Results 12/23/21 05:34 12/23/21 05:34 PG Care Time/CCT Total # of Minutes Spent Total Time Spent with Patient: Total time spent is greater than 50% in coordination of care (as documented) at patient's floor/unit and/or counseling patient: Coding Level of Care Code 01419 Subseq Hosp Care Lvl 2 Diagnoses Acute and chronic respiratory failure with hypoxia J96.21 COPD exacerbation J44.1 History of pneumonectomy Z98.890; Z90.2 Tobacco use disorder F17.200
[2021-12-23] MEDS: MAGNESIUM SULFATE / D5W 1 GM/100 ML BAG IV SCH ×2 (12:09→14:42)
[2021-12-23] MEDS: AZITHROMYCIN 500 MG in DEXTROSE 5% 250 ML IV SCH (12:10)
[2021-12-23] MEDS ORDERED: LORazepam 0.5 MG in SYRINGE 0 ML IV PRN (12:22)
[2021-12-23] MEDS ORDERED: LORazepam 0.5 MG in SYRINGE 0 ML IV STA (12:22)
[2021-12-23] MEDS: ACETYLCYSTEINE 20% INHAL SOLN 4ML ***DISPENSED BY RESP. INH SCH ×2 (14:19→19:34)
[2021-12-23] MEDS: ENOXAPARIN INJ 30 MG/0.3 ML SYR SQ SCH (14:44)
[2021-12-23 16:26] LABS: Anion Gap 1.7 (3-11)
[2021-12-23] MEDS ORDERED: LORazepam 0.5 MG TAB PO PRN (17:56)
[2021-12-23] MEDS ORDERED: MoRPHine SULFATE 5 MG/0.25 ML UDP PO PRN (17:56)
--- NOTE | 2021-12-23 18:20 | Hospitalist Progress Note ---
Date of Service December 23, 2021 Assessment & Plan (1) Acute respiratory failure with hypoxia and hypercarbia: Plan: Secondary to COPD exacerbation VBG on arrival 7.110, intubated with altered mentation. VBG improved overnight and extubated AM of 12/21 to BiPAP Now alert, awake, oriented, no recollection of events on admission No PNA on CXR but has right pneumonectomy, severe COPD, continues to smoke Remains dyspneic at rest and anxious. Having difficulty tolerating BiPAP overnight but is trying She is interested in further discussions about palliative care in the setting of end-stage COPD to include low-dose opioids for treatment of dyspnea Had a lengthy Palliative discussion with her and her son at bedside on 12/23. She will think things over as far as CODE status, but wants to remain conditional code for now. We discussed her risk for mortality over the next 12 months being significantly higher due to requiring hospitalization and intubation, and her recurrent hospitalizations. She is definitely interested in a trial of low dose opioid for breathlessness and we discussed that studies show this is actually more beneficial and safer than benzos. However, she is benzo dependent and will need to continue on ativan hs for now and slowly wean off if she desires. -start Roxanol 2.5mg po q4h prn breathlessness -Continue BiPAP use at nighttime as tolerated, asked CM to order Trilogy as she qualifies for this at home -continue IV Solu medrol 40 Mg once daily and likely convert to prednisone tomorrow - continue azithro x 5 day course -continue nebs, and home maintenance inhalers -Appreciate PULM/Critical Care management -consult Palliative Medicine to see about further Palliative options and perhaps facilitate outpatient Palliative Medicine follow up, have further goals of care discussions -encourage smoking cessation -continue home O2 2LNC during day -continue acetylcysteine nebs bid -remove Melissa in AM, has bedside commode at home and will plan to use as she is extremely dyspneic with minimal exertion -work on bowel regimen/constipation to improve dyspnea (2) Chronic obstructive pulmonary disease: Plan: as above (3) Nausea: Plan: ongoing since prior to admission, no abd pain, vomiting, or diarrhea-now improving severe malnourishment, nontender abd exam, LFs normal, no leukocytosis, no fevers Continue Zofran as needed -could be gastritis-continue p.o. PPI especially while on steroids -dc IV fluids now is eating/drinking (4) Aspiration into airway: Plan: has aspiration issuse due to dyspnea/pulm status appreciate Speech eval recommends lidded cups, small sips, minced and moist diet holding off on further instrumental testing as going Palliative route (5) Protein calorie malnutrition: Plan: Severe protein-calorie malnutrition, BMI 12.9 kg/m*m dietary consult when eating Secondary to end-stage COPD (6) Hypomagnesemia: Plan: Replace again today (7) Tobacco use disorder: Plan: - smoking cessation counseling nicotine patch prn (8) B12 deficiency: Plan: not checked in 2.5 years-checked level here and again low at 251-give IM B12 also noted to have dx of B1 def but no lab in our chart-check B1 in AM-pending empirically started thiamine (9) Depression: Plan: continue home mirtazapine at bedtime (10) SIADH (syndrome of inappropriate ADH production): Plan: Na+ 133, mild, 2/2 chronic lung issues (11) Thiamine deficiency: Plan: as above (12) History of pneumonectomy: Plan: -Stable findings on chest xray 2/2 previous lung CA (13) Underweight: Plan: BMI 13.7 as above Plan DVT proph-continue reduced dose of Lovenox 30mg for low body weight Dispo-continued stay on medical/surgical unit Code status DNR/Conditional Code-would want to be intubated again for pure resp failure if temporary but not for prolonged period of time Consult palliative medicine on Friday to further discuss goals of care with end- stage COPD and palliation with opioids for dyspnea Admission and Anticipated Discharge Date Admission Date: December 20, 2021 Subjective Pt reports significant anxiety today and breathlessness. Was given a dose of ativan and felt better. SHe typically takes the ativan every night at home and sometimes during the day. SHe is trying to tolerate the BiPAP and wants to keep trying. SHe continues to have a hoarse voice from intubation. No BM since admission. Is agreeable to removing Melissa in AM but likes it due to not having to get up to urinate due to severe dyspnea. No pain anywhere. Had a lengthy Palliative discussion with her and her son at bedside. She will think things over as far as CODE status, but wants to remain conditional code for now. We discussed her risk for mortality over th enext 12 months being significantly higher due to requiring hospitalization and intubation, and her recurrent hospitalizations. She is definitely interested in a trial of low dose opioid for breathlessness and we discussed that studies show this is actually more beneficial and safer than benzos. However, she is benzo dependent and will need to continue on ativan hs for now and slowly wean off if she desires. She is having some issues with aspiration due to her respiratory status and was seen again by Speech therapy today too. Recommended cups with lids to minimize aspiration of liquids, and minced/moist diet. Review of Systems Review of Systems: All systems reviewed & are unremarkable except as noted in HPI & below Physical Exam Constitutional: + thin, + cachectic and + frail appearing Eyes: + anicteric sclerae Neck: trachea midline, no thyromegaly Respiratory: + tachypneic (at rest); no cough Auscultation: + diminished lung sounds (throughout right hemithorax); no crackles, no rhonchi and no wheezes Cardiovascular: Rate/Rhythm: regular rhythm and + tachycardic Heart Sounds: no murmur Extremities: no edema Chest (Breasts): Chest: normal inspection of chest Gastrointestinal (Abdomen): normal bowel sounds, soft, nontender, no hepatosplenomegaly Musculoskeletal: Extremities: + extremities abnormal to inspection (sarcopenia), no cyanosis and no clubbing Skin: no rashes, warm and dry Neurologic: moves all extremities and awake; no focal motor deficits Psychiatric: A+Ox3, euthymic affect Affect: + anxious affect Genitourinary: Melissa catheter in place Lymphatic: no lymphedema Results & Data Results & Data ([facility]) Vital Signs (Past 12 Hours) Vital Signs Temp Pulse Pulse Resp BP Pulse Ox O2 Del Method 12/23/21 15:17 37.1 C 110 H 20 134/78 99 Nasal Cannula 12/23/21 14:21 99 H 17 94 Nasal Cannula 12/23/21 11:35 106 H 31 H 98 12/23/21 11:40 104 H 27 H 98 BiPAP 12/23/21 07:40 Nasal Cannula 12/23/21 07:44 93 H 24 99 Nasal Cannula 12/23/21 07:25 37 C 85 20 115/72 100 Nasal Cannula O2 Flow Rate 12/23/21 15:17 2 12/23/21 14:21 2 12/23/21 11:35 2 12/23/21 11:40 8 12/23/21 07:40 3 12/23/21 07:44 2 12/23/21 07:25 2 Laboratory Results 12/23/21 12/23/21 12/20/21 Range/Units 05:34 05:34 12:20 WBC 6.82 (4.8-10.8) K/ul RBC 3.40 L (3.93-5.22) M/uL Hgb 10.4 L (12.0-16.0) g/dl Hct 32.8 L (34.1-44.9) % MCV 96.5 (80.0-100.0) fL MCH 30.6 (25.0-34.0) pg MCHC 31.7 L (32.0-36.0) g/dL RDW Std Deviation 55.6 H (36.4-46.3) fL RDW Coeff of Niru 15.5 H (11.5-14.5) % Plt Count 133 (130-400) K/uL MPV 10.1 (9.4-12.3) fL Immature Gran % (Auto) 0.3 % Neut % (Auto) 82.9 % Lymph % (Auto) 6.6 % Luce % (Auto) 10.1 % Eos % (Auto) 0.0 % Baso % (Auto) 0.1 % Neut # (Auto) 5.65 (1.4-6.5) K/uL Lymph # (Auto) 0.45 L (1.2-3.4) K/uL Luce # (Auto) 0.69 (0.24-0.82) K/uL Eos # (Auto) 0.00 (0-0.50) K/uL Baso # (Auto) 0.01 (0-0.2) K/uL Immature Gran # (Auto) 0.02 (0.00-0.02) K/uL Sodium 139 (136-145) mmol/L Potassium 4.1 (3.5-5.1) mmol/L Chloride 99 (98-107) mmol/L Carbon Dioxide 34 H (21-32) mmol/L Anion Gap 1.7 L (3-11) BUN 13 (6-23) mg/dl Creatinine 0.40 L (0.6-1.2) mg/dl Est Cr Clr Drug Dosing 75.4 ml/min Est GFR ( Amer) 124.9 ml/min Est GFR (Non-Af Amer) 107.8 ml/min BUN/Creatinine Ratio 32.5 H (10-20) Glucose 84 (70-99(Fasting)) mg/dl Calcium 8.2 L (8.5-10.1) mg/dl Magnesium 1.6 L (1.7-2.4) mg/dl Total Bilirubin 0.3 (0.2-1.0) mg/dl AST 24 (13-39) U/L ALT 15 (7-52) U/L Alkaline Phosphatase 62 (34-104) U/L Total Protein 5.2 L (6.0-8.3) gm/dl Albumin 3.3 L (3.4-5.0) gm/dl Globulin 1.9 L (2.5-4.0) gm/dl Albumin/Globulin Ratio 1.7 (0.9-2) U OH-Alprazolam Confrm NEGATIVE (<25) ng/mL 7-Amino Clonazepam NEGATIVE (<25) ng/mL Ur Nordiazepam Confirm NEGATIVE (<50) ng/mL U OH-ethylflurazepam NEGATIVE (<50) ng/mL U Lorazepam Cnf GC/MS NEGATIVE (<50) ng/mL U Oxazepam Confm GC/MS NEGATIVE (<50) ng/mL Ur Temazepam Confirm NEGATIVE (<50) ng/mL U OH-Triazolam Confirm NEGATIVE (<50) ng/mL U OH-Midazolam Confirm 1950 H (<50) ng/mL Drug Screen Comment SEE NOTE PG Care Time/CCT Total # of Minutes Spent Total Time Spent with Patient: Total time spent is greater than 50% in coordination of care (as documented) at patient's floor/unit and/or counseling patient: Coding Level of Care Code 82433 Subseq Hosp Care Lvl 3 Diagnoses Acute respiratory failure with hypoxia and hypercarbia J96.01; J96.02 Chronic obstructive pulmonary disease J44.9 Nausea R11.0 Aspiration into airway T17.908A Protein calorie malnutrition E46 Hypomagnesemia E83.42 Tobacco use disorder F17.200 B12 deficiency E53.8 Depression F32.9 SIADH (syndrome of inappropriate ADH production) E22.2 Thiamine deficiency E51.9 History of pneumonectomy Z98.890; Z90.2 Underweight R63.6
[2021-12-23] MEDS: MIRTAZAPINE TAB 15 MG TAB PO SCH (22:10)
[2021-12-23] MEDS: SENNA 8.6 MG TAB PO SCH (22:10)
[2021-12-23] MEDS: LORazepam 0.5 MG TAB PO SCH (22:10)
[2021-12-23] MEDS: ACETAMINOPHEN 325 MG TAB PO PRN (22:22)
[2021-12-24] MEDS: ACETAMINOPHEN 325 MG TAB PO PRN (03:20)
[2021-12-24] MEDS ORDERED: ALBUT/IPRATROP 3MG/0.5MG NEB 3 ML VIAL NEB STA (03:31)
[2021-12-24] MEDS: ALBUT/IPRATROP 3MG/0.5MG NEB 3 ML VIAL NEB SCH ×4 (07:02→19:34)
[2021-12-24] MEDS: ACETYLCYSTEINE 20% INHAL SOLN 4ML ***DISPENSED BY RESP. INH SCH ×2 (07:02→19:34)
[2021-12-24] MEDS: PANTOprazole 40 MG TAB PO SCH (08:48)
[2021-12-24] MEDS: SENNA 8.6 MG TAB PO SCH (08:48)
[2021-12-24] MEDS: THIAMINE HCL 100 MG TAB PO SCH (08:48)
[2021-12-24] MEDS: NICOTINE 14 MG/24 HR PATCH TD SCH (08:49)
[2021-12-24] MEDS: CYANOCOBALAMIN 1000 MCG/ML VIAL IM SCH (08:50)
[2021-12-24] MEDS: FLUTICASONE FUROATE 100MCG 14 PUFFS/INHALER INH SCH (08:50)
[2021-12-24] MEDS: methylPREDNISolone 40 MG in SYRINGE 0 ML IV SCH (09:28)
[2021-12-24] MEDS: IRON SUCROSE 300 MG in SODIUM CHLORIDE 0.9% 250 ML IV SCH (09:29)
[2021-12-24] MEDS: UMECLIDINIUM/VILANTEROL 62.5/25MCG 7 PUFFS/INHALER INH SCH (09:32)
[2021-12-24] MEDS: AZITHROMYCIN 500 MG in DEXTROSE 5% 250 ML IV SCH (11:24)
[2021-12-24] MEDS: ONDANSETRON INJ 2 MG/ML 2 ML VIAL IV PRN (11:25)
[2021-12-24] MEDS: ENOXAPARIN INJ 30 MG/0.3 ML SYR SQ SCH (13:00)
--- NOTE | 2021-12-24 17:36 | Palliative Care Consultation ---
Date of Consultation December 24, 2021 Assessment & Plan (1) Dyspnea: Agree with low dose morphine as needed. (2) General weakness: Per her family, she would be at home alone most of the day while her significant other is at work. She is not able to do ADLs. I talked with her about having rehab and she told me that she did that in the past and it didn't help. (3) Palliative care encounter: I met with Amy's two sons and her sister, Shruthi. They expressed concern about her being at home alone and asked about options. We discussed SNF for rehab which might result in buttermaker care. Her rehab potential is very limited unfortunately. They agree with this. They also asked about prognosis and what to expect. We discussed the typical course of COPD being more peaks and valleys with gradual decline rather than a steady decline. Given her respiratory status and her cachexia, I would not be surprised if she were to within the next six months. Her family was not surprised about this possibility either. We talked about hospice support at home as Amy has expressed the desire to get home. We discussed what would be involved with hospice care. They were hoping for something more like 24/7 care. We talked about Amy being intubated on admission. Her son told me that she was DNR prior to admission. I then spoke with Amy at bedside with her family present. She has difficulty speaking and conversation was generally limited to yes/no questions. We discussed concern about her not being strong enough to be at home without 24/7 care. She acknowledges this. We discussed possibility of rehab at SNF. She would be agreeable to investigating availablility for SNF but is doubtful that she would have much, if any, improvement with rehab. She is tearful and aware that her prognosis is poor. I asked her what worried her the most and she told me "cooking meals". She is concerned about who would cook for her significant other. She is agreeable to further discussion about goals of care but was very fatigued and having difficulty with further conversation. Will see again tomorrow. (4) Acute and chronic respiratory failure with hypoxia: (5) COPD exacerbation: History of Present Illness Reason for Consultation: goals of care Requesting Physician: Dr. Rondon Attending Physician: Chiqui Rondon MD History of Present Illness 66 yo lady with history of end stage COPD who presented with acute hypoxic, hypercapnic respiratory failure and was intubated for a short time on admission. She is now extubated but has dyspnea at rest, hypercarbia and hyponatremia. She has also had dysphagia with aspiration. She was seen by speech therapy and dietary modifications were recommended. She has had progressive functional decline with poor appetite and severe protein calorie malnutrition. Her family notes that her functional status has decreased significantly over the last few months. She had been cooking for her significant other but now requires 2 person assist to transfer to chair. She has dyspnea at rest and has been prescribed low dose roxanol but has not used any doses at this point. Allergies Allergy/AdvReac Type Severity Reaction Status Date / Time aspirin Allergy Severe SEVERE Verified 10/05/21 15:29 STOMACH CRAMPING sulfamethoxazole Allergy Severe TONGUE Verified 10/05/21 15:29 SWELLING trimethoprim Allergy Severe TONGUE Verified 10/05/21 15:29 SWELLING Penicillins Allergy Unknown Unknown Verified 10/05/21 15:29 Home Medications Medication Instructions Recorded Confirmed Type nicotine 7 mg/24 hr daily 14 mg transdermal QAM #30 ea 01/21/21 10/05/21 Rx transdermal patch acetaminophen 325 mg tablet 650 mg PO Q4H PRN pain #30 tabs 04/12/21 10/05/21 Rx lorazepam 0.5 mg tablet 0.5 mg PO BID PRN muscle spasm or 04/19/21 10/05/21 Rx for insomnia #30 tabs albuterol sulfate 90 mcg/actuation 2 puff inhalation .Q4-6HRS PRN 07/31/21 10/05/21 Rx aerosol inhaler (ProAir HFA) Shortness Of Breath Or Wheezing #18 grams guaifenesin 600 mg tablet, 600 mg PO BID PRN Congestion 10/05/21 10/05/21 History extended release 12 hr (Mucinex) fluticasone fur. 100 mcg-umeclid 1 inh inhalation DAILY 1 month #60 10/10/21 Rx 62.5 mcg-vilant 25 mcg ea inhalat.powder (Trelegy Ellipta) mirtazapine 15 mg tablet 15 mg PO HS #30 tabs 10/19/21 10/19/21 Rx albuterol sulfate 2.5 mg/3 mL 2.5 mg (3 mL) inhalation QID PRN 10/25/21 Rx (0.083 %) solution for nebulization Shortness Of Breath Or Wheezing #180 mL prednisone 10 mg tablet See Rx Instructions PO DAILY #40 10/31/21 10/31/21 Rx tabs Patient History Medical History Abnormal CT scan, gastrointestinal tract Alcoholism Aspiration into airway B12 deficiency Bilateral kidney stones Chronic obstructive pulmonary disease Chronic reflux esophagitis Chronic respiratory failure Dilation of thoracic aorta Hypomagnesemia Influenza Leukocytosis Lung cancer Osteoporosis Palliative care encounter Pneumonia Pneumonia Protein calorie malnutrition SIADH (syndrome of inappropriate ADH production) Squamous cell carcinoma of lung Underweight Unspecified cirrhosis of liver Surgical History History of pneumonectomy S/P lobectomy of lung Family History Father Aortic aneurysm Hypertension Mother COPD (chronic obstructive pulmonary disease) CHF (congestive heart failure) Osteoporosis Renal failure Grandmother Diabetes Grandfather Skin cancer Other Myocardial infarction No pertinent family history in first degree relatives Denies family history of Ovarian cancer Prostate cancer Breast cancer Colorectal cancer Social History Smoking Status: Current every day smoker Tobacco Type: Cigarettes Cigarettes Per Day: unk; Second Hand Exposure: No; Hx Alcohol Use: No Hx Substance Use: No Preferred Language: Danish Communication Ability: Unable Communication Ability Comment: intubated Visual Impairment: No Limitations Lens Hardener Required: No Beliefs That Will Affect Care: Spiritual marital status: Single Current Living Situation: Other Current Living Situation Comment: fiance current occupational status: disabled How many Children do You have: 0 Other Information That Helps Us Care for You: No Feels Safe at Home: Yes Safety Concerns: Feels Safe At This Time Dental Care, Regularly: No Physical Activity Frequency: Does not Exercise Seatbelt Use: always Sunscreen Use: No Assistive Devices: Cane and Walker Review of Systems Review of Systems: ESAS Pain 0/3 Dyspnea 2/3 Nausea 0/3 Fatigue 3/3 Drowsiness 0/3 PPS 40% Physical Exam Constitutional: + cachectic ENMT: Mouth: + dry oral mucous membranes Respiratory: tachypnea, uses accessory muscles Musculoskeletal: Extremities: + muscle atrophy Skin: warm and dry Neurologic: Speech / Cognition: normal cognition Results & Data ([facility]) Vital Signs (Past 12 Hours) Vital Signs Temp Pulse Resp BP Pulse Ox O2 Del Method O2 Flow Rate 12/24/21 16:05 98.6 F 103 H 18 110/68 96 Nasal Cannula 2 12/24/21 14:40 89 18 95 Nasal Cannula 2 12/24/21 11:08 108 H 18 98 Nasal Cannula 3 12/24/21 07:46 CPAP 12/24/21 07:27 98.1 F 111 H 22 149/78 H 96 Nasal Cannula 2.5 12/24/21 07:03 93 H 16 93 Nasal Cannula 2 PG Care Time/CCT Total # of Minutes Spent Total Time Spent: 90 Total Time Spent with Patient: Total time spent is greater than 50% in coordination of care (as documented) at patient's floor/unit and/or counseling patient: goals of care, prognosis, hospice, symptom management, patient and family education and support. Coding Level of Care Code 13826 Initial Inpt Care Lvl 3 Diagnoses Dyspnea R06.00 General weakness R53.1 Palliative care encounter Z51.5 Acute and chronic respiratory failure with hypoxia J96.21 COPD exacerbation J44.1
--- NOTE | 2021-12-24 18:27 | Hospitalist Progress Note ---
Date of Service December 24, 2021 Assessment & Plan (1) Acute respiratory failure with hypoxia and hypercarbia: Plan: Secondary to COPD exacerbation VBG on arrival 7.16/110, intubated with altered mentation. VBG improved overnight and extubated AM of 12/21 to BiPAP Now alert, awake, oriented, no recollection of events on admission No PNA on CXR but has right pneumonectomy, severe COPD, continues to smoke Remains dyspneic at rest and anxious. Having difficulty tolerating BiPAP overnight but is trying She is interested in further discussions about palliative care in the setting of end-stage COPD to include low-dose opioids for treatment of dyspnea Had a lengthy Palliative discussion with her and her son at bedside on 12/23. She will think things over as far as CODE status, but wants to remain conditional code for now. We discussed her risk for mortality over the next 12 months being significantly higher due to requiring hospitalization and intubation, and her recurrent hospitalizations. She is definitely interested in a trial of low dose opioid for breathlessness and we discussed that studies show this is actually more beneficial and safer than benzos. However, she is benzo dependent and will need to continue on ativan hs for now and slowly wean off if she desires. Appreciate palliative medicine consultation on 12/24 Please start on Trilogy OBDULIA/Astral NIV for treatment of chronic respiratory failure consequent to severe COPD. BiPAP has been considered and ruled out, VAPS mode will target tidal volume to help maintain acceptable PaCO2 levels in the home setting, reducing the risk of readmission and patient harm. The NIV unit also provides higher flow capabilities to meet patient's needs, enhanced alarms, battery backup, and will be more adjustable as their disease state progresses. -Continue Roxanol 2.5mg po q4h prn breathlessness-she has not yet tried a dose -Continue BiPAP use at nighttime as tolerated, asked CM to order Trilogy as she qualifies for this at home -continue IV Solu medrol 40 Mg once daily and convert to prednisone 40mg daily tomorrow-taper down after that - continue azithro x 5 day course-last dose on 12/25 -continue nebs, and home maintenance inhalers -Appreciate PULM/Critical Care management -consult Palliative Medicine to see about further Palliative options and perhaps facilitate outpatient Palliative Medicine follow up, have further goals of care discussions -encourage smoking cessation -continue home O2 2LNC during day -continue acetylcysteine nebs bid -removed Magali, has bedside commode at home and will plan to use as she is extremely dyspneic with minimal exertion -work on bowel regimen/constipation to improve dyspnea-continue senna and add on docusate twice daily (2) Chronic obstructive pulmonary disease: Plan: as above (3) Nausea: Plan: ongoing since prior to admission, no abd pain, vomiting, or diarrhea-now improving severe malnourishment, nontender abd exam, LFs normal, no leukocytosis, no fevers Continue Zofran as needed -could be gastritis-continue p.o. PPI especially while on steroids -dc IV fluids now is eating/drinking (4) Aspiration into airway: Plan: has aspiration issuse due to dyspnea/pulm status appreciate Speech eval recommends lidded cups, small sips, minced and moist diet holding off on further instrumental testing as going Palliative route With hoarse voice since extubation-consider ENT referral as an outpatient if not improving (5) Protein calorie malnutrition: Plan: Severe protein-calorie malnutrition, BMI 15.9 kg/m*m dietary consult when eating Secondary to end-stage COPD (6) Hypomagnesemia: Plan: Replaced and improved (7) Tobacco use disorder: Plan: - smoking cessation counseling nicotine patch prn (8) B12 deficiency: Plan: not checked in 2.5 years-checked level here and again low at 251-give IM B12 also noted to have dx of B1 def but no lab in our chart-check B1 in AM-pending empirically started thiamine (9) Depression: Plan: continue home mirtazapine at bedtime (10) SIADH (syndrome of inappropriate ADH production): Plan: Na+ 133, mild, 2/2 chronic lung issues (11) Thiamine deficiency: Plan: as above (12) History of pneumonectomy: Plan: -Stable findings on chest xray 2/2 previous lung CA (13) Underweight: Plan: BMI 13.7 as above Plan DVT proph-continue reduced dose of Lovenox 30mg for low body weight Dispo-continued stay on medical/surgical unit. Placed PT/OT consultations, will likely need SNF Code status DNR/Conditional Code-would want to be intubated again for pure resp failure if temporary but not for prolonged period of time Consult palliative medicine to further discuss goals of care with end-stage COPD and palliation with opioids for dyspnea Admission and Anticipated Discharge Date Admission Date: December 20, 2021 Subjective Patient remains dyspneic even at rest. She is using the BiPAP at night and with naps and is trying to tolerate it. She has not yet tried a dose of the oral morphine for dyspnea. She did take a dose of lorazepam this morning. She met with palliative medicine today and is considering rehab placement now as she is too weak and dyspneic to return home and care for herself and does not have ac cess to 24/7 care at home. She is not ready to enroll in hospice yet but is thinking about it. Denies pain anywhere, no bowel movement yet Did have [place] catheter removed today and is voiding on her own Still has a hoarse voice but seems a little bit improved today. Review of Systems Review of Systems: All systems reviewed & are unremarkable except as noted in HPI & below Still having a mild headache and has not received any caffeinated coffee which she usually drinks on a daily basis Physical Exam Constitutional: + thin, + cachectic and + frail appearing Eyes: + anicteric sclerae Neck: trachea midline, no thyromegaly Respiratory: normal respiratory effort and + tachypneic (at rest); no cough Auscultation: + diminished lung sounds (throughout right hemithorax); no crackles, no rhonchi and no wheezes Cardiovascular: RRR, no murmur, no edema Chest (Breasts): Chest: normal inspection of chest Gastrointestinal (Abdomen): normal bowel sounds, soft, nontender, no hepatosplenomegaly Musculoskeletal: Extremities: + extremities abnormal to inspection (sarcopenia), no cyanosis and no clubbing Skin: no rashes, warm and dry Neurologic: moves all extremities and awake; no focal motor deficits Psychiatric: Orientation: alert, oriented x 3 and cooperative Affect: + anxious affect Lymphatic: no lymphedema Results & Data Results & Data ([facility]) Vital Signs (Past 12 Hours) Vital Signs Temp Pulse Resp BP Pulse Ox O2 Del Method O2 Flow Rate 12/24/21 16:05 37 C 103 H 18 110/68 96 Nasal Cannula 2 12/24/21 14:40 89 18 95 Nasal Cannula 2 12/24/21 11:08 108 H 18 98 Nasal Cannula 3 12/24/21 07:46 CPAP 12/24/21 07:27 36.7 C 111 H 22 149/78 H 96 Nasal Cannula 2.5 12/24/21 07:03 93 H 16 93 Nasal Cannula 2 PG Care Time/CCT Total # of Minutes Spent Total Time Spent with Patient: Total time spent is greater than 50% in coordination of care (as documented) at patient's floor/unit and/or counseling patient: Coding Level of Care Code 35932 Subseq Hosp Care Lvl 2 Diagnoses Acute respiratory failure with hypoxia and hypercarbia J96.01; J96.02 Chronic obstructive pulmonary disease J44.9 Nausea R11.0 Aspiration into airway T17.908A Protein calorie malnutrition E46 Hypomagnesemia E83.42 Tobacco use disorder F17.200 B12 deficiency E53.8 Depression F32.9 SIADH (syndrome of inappropriate ADH production) E22.2 Thiamine deficiency E51.9 History of pneumonectomy Z98.890; Z90.2 Underweight R63.6
[2021-12-24] MEDS: MIRTAZAPINE TAB 15 MG TAB PO SCH (21:10)
[2021-12-24] MEDS: LORazepam 0.5 MG TAB PO SCH (21:10)
[2021-12-25] MEDS: ALBUT/IPRATROP 3MG/0.5MG NEB 3 ML VIAL NEB SCH ×4 (07:13→19:43)
[2021-12-25] MEDS: ACETYLCYSTEINE 20% INHAL SOLN 4ML ***DISPENSED BY RESP. INH SCH (07:13)
[2021-12-25] MEDS ORDERED: RAPID SEQUENCE INDUCTION BAG ONE (07:59)
[2021-12-25 08:09] LABS: HCO3 ABG 44 mmol/L (19-24); Oxygen Saturation ABG 97.5 % (90-95); PCO2 ABG > 125 mmHg (35-46); PO2 ABG 81 mmHg (80-95)
[2021-12-25 08:10] LABS: Allen Test Pos (Pos)
--- NOTE | 2021-12-25 08:10 | Hospitalist Progress Note ---
Date of Service December 25, 2021 Assessment & Plan (1) Acute on chronic respiratory failure with hypoxia and hypercapnia: Plan: Intubated on day of admission due to profound hypercarbia in the setting of COPD exacerbation and end-stage COPD. Extubated hospital day #2 to BIPAP. Has not been using BIPAP since the initial ICU stay. Today had recurrent, severe hypercarbia with obtundation. BIPAP applied and patient transferred to the ICU. Leading up to today's events there had been considerable discussions with the patient and her family regarding goals of care. Dr Montelongo from palliative medicine has been assisting tremendously with those discussions. Although we transferred her to ICU following her code purple this am we will not be moving forward with intubation/mech ventilation. Dr Montelongo to meet with the patient and her children this am. Appreciate Dr Kang's and Dr Montelongo's assistance. Defer abx, steroids, etc to Dr Kang. (2) Chronic obstructive pulmonary disease: Plan: end-stage. with exacerbation. see #1 above. (3) Protein calorie malnutrition: Plan: Severe protein-calorie malnutrition, BMI 15.9 kg/m*m Secondary to end-stage COPD (4) Hypomagnesemia: Plan: Replaced Resolved (5) Tobacco use disorder: Plan: cont nicotine patch (6) B12 deficiency: (7) Depression: (8) SIADH (syndrome of inappropriate ADH production): Plan: level 138 this am (9) Thiamine deficiency: (10) History of pneumonectomy: Plan: Right-sided, 2nd to prior lung cancer. Plan await further discussions between ICU, palliative and patient/family Admission and Anticipated Discharge Date Admission Date: December 20, 2021 Subjective early this am a code purple was called. patient was unresponsive at shift change. verbal order was given for BIPAP even prior to my arrival. upon arrival patient had BIPAP in place. she was unresponsive to voice, commands, etc. EKG obtained- sinus tach. bedside BSG wnl. vitals stable including O2 sats on the BIPAP. iSTAT ABG with pH of about 7, pCO2 >130. Patient moved to ICU. Code status was confirmed to be partial code -- intubation/mech ventilation OK, but no CPR. Preparations were being made to intubate the patient. Dr Kang, ICU attending, arrived at the bedside. By this point patient had her eyes open and was starting to follow commands. Decision was made to NOT intubate at that point. Plan was to have Dr Montelongo from palliative meet with patient and her family again to discuss goals of care. Review of Systems Review of Systems: Unobtainable due to reduced consciousness Physical Exam Physical Exam: gen - cachectic, increased work of breathing, tachypneic, obtunded mouth - MM dry neck - no JVD heart - tachy, s1 s2, no murmur lungs - wheezes b/l, retractions, tachypneic abd - distended (mild), BS+, NT ext - cool to touch, no edema, pulses 2+ b/l psych - a/o x 0 (during Code Purple); oriented to person by time of arrival in the ICU Results & Data Results & Data ([facility]) Vital Signs (Past 12 Hours) Vital Signs Temp Pulse Pulse Resp BP Pulse Ox O2 Del Method 12/25/21 07:13 107 H 18 91 Nasal Cannula 12/25/21 00:39 Nasal Cannula, CPAP 12/24/21 23:51 37.1 C 100 H 14 110/65 98 Nasal Cannula 12/24/21 22:15 106 H 24 93 12/24/21 20:45 Nasal Cannula O2 Flow Rate 12/25/21 07:13 3 12/25/21 00:39 3 12/24/21 23:51 3 12/24/21 22:15 3 12/24/21 20:45 3 Laboratory Results Laboratory Results - last 24 hr 12/25/21 12/25/21 12/25/21 07:45 07:45 07:45 WBC 13.43 H RBC 4.17 Hgb 12.9 Hct 43.3 MCV 103.8 H D MCH 30.9 MCHC 29.8 L RDW Std Deviation 57.2 H RDW Coeff of Niru 14.9 H Plt Count 189 MPV 10.0 Immature Gran % (Auto) 1.3 Neut % (Auto) 76.2 Lymph % (Auto) 10.1 Morrill % (Auto) 12.2 Eos % (Auto) 0.0 Baso % (Auto) 0.2 Neut # (Auto) 10.22 H Lymph # (Auto) 1.36 Morrill # (Auto) 1.64 H Eos # (Auto) 0.00 Baso # (Auto) 0.03 Immature Gran # (Auto) 0.18 H ABG pH ABG pCO2 ABG pO2 ABG HCO3 ABG O2 Saturation ABG Base Excess Gildardo Test Oxygen Given Sodium 138 Potassium 4.7 Chloride 95 L Carbon Dioxide 41 H* Anion Gap 2 L BUN 9 Creatinine 0.41 L Est Cr Clr Drug Dosing 85.8 Est GFR ( Amer) 123.9 Est GFR (Non-Af Amer) 106.9 BUN/Creatinine Ratio 22.0 H Glucose 144 H POC Glucose Lactate 3.0 H* Calcium 8.8 Magnesium 1.4 L Total Bilirubin 0.5 AST 18 ALT 14 Alkaline Phosphatase 75 Total Protein 5.9 L Albumin 3.6 Globulin 2.3 L Albumin/Globulin Ratio 1.6 12/25/21 12/25/21 12/25/21 07:46 07:49 09:30 WBC RBC Hgb Hct MCV MCH MCHC RDW Std Deviation RDW Coeff of Niru Plt Count MPV Immature Gran % (Auto) Neut % (Auto) Lymph % (Auto) Morrill % (Auto) Eos % (Auto) Baso % (Auto) Neut # (Auto) Lymph # (Auto) Morrill # (Auto) Eos # (Auto) Baso # (Auto) Immature Gran # (Auto) ABG pH 7.10 L* ABG pCO2 > 125 H ABG pO2 81 ABG HCO3 44 H ABG O2 Saturation 97.5 H ABG Base Excess 9.0 H Gildardo Test Pos Oxygen Given 7 L Sodium Potassium Chloride Carbon Dioxide Anion Gap BUN Creatinine Est Cr Clr Drug Dosing Est GFR ( Amer) Est GFR (Non-Af Amer) BUN/Creatinine Ratio Glucose POC Glucose 141 H Lactate 0.8 Calcium Magnesium Total Bilirubin AST ALT Alkaline Phosphatase Total Protein Albumin Globulin Albumin/Globulin Ratio PG Care Time/CCT Total # of Minutes Spent Total Time Spent with Patient: Total time spent is greater than 50% in coordination of care (as documented) at patient's floor/unit and/or counseling patient: Coding Level of Care Code 85624 Subseq Hosp Care Lvl 3 Diagnoses Acute on chronic respiratory failure with hypoxia and hypercapnia J96.21; J96.22 Chronic obstructive pulmonary disease J44.9 Protein calorie malnutrition E46 Hypomagnesemia E83.42 Tobacco use disorder F17.200 B12 deficiency E53.8 Depression F32.9 SIADH (syndrome of inappropriate ADH production) E22.2 Thiamine deficiency E51.9 History of pneumonectomy Z98.890; Z90.2
[2021-12-25 08:41] LABS: Basophils # (auto) 0.03 K/uL (0-0.2); Basophils % (auto) 0.2 %; Hematocrit (blood only) 43.3 % (34.1-44.9); Hemoglobin 12.9 g/dl (12.0-16.0); Immature Granulocytes # (auto) 0.18 K/uL (0.00-0.02); Immature Granulocytes % (auto) 1.3 %; Lymphocytes # (auto) 1.36 K/uL (1.2-3.4); Lymphocytes % (auto) 10.1 %; Mean Corpuscular Hemoglobin 30.9 pg (25.0-34.0); Mean Corpuscular Hgb Conc 29.8 g/dL (32.0-36.0); Mean Corpuscular Volume 103.8 fL (80.0-100.0); Monocytes # (auto) 1.64 K/uL (0.24-0.82); Monocytes % (auto) 12.2 %; Neutrophils # (auto) 10.22 K/uL (1.4-6.5); Neutrophils % (auto) 76.2 %; Platelet Count 189 K/uL (130-400); RDW Coefficient of Variation 14.9 % (11.5-14.5); RDW Standard Deviation 57.2 fL (36.4-46.3); Red Blood Count 4.17 M/uL (3.93-5.22); White Blood Count 13.43 K/ul (4.8-10.8)
[2021-12-25 08:50] LABS: Albumin Globulin Ratio 1.6 (0.9-2); Albumin Level 3.6 gm/dl (3.4-5.0); Bilirubin,Total 0.5 mg/dl (0.2-1.0); Calcium 8.8 mg/dl (8.5-10.1); Creatinine Clr Calc Pharmacy 85.8 ml/min; Est GFR (African American) 123.9 ml/min; Est GFR (Non-African American) 106.9 ml/min; Globulin 2.3 gm/dl (2.5-4.0); Magnesium 1.4 mg/dl (1.7-2.4); Potassium 4.7 mmol/L (3.5-5.1); Total Protein 5.9 gm/dl (6.0-8.3)
[2021-12-25] MEDS ORDERED: CYANOCOBALAMIN (B-12) 500 MCG TABLET PO SCH (09:00)
[2021-12-25] MEDS ORDERED: DOCUSATE SODIUM 100 MG CAP PO SCH (09:00)
[2021-12-25] MEDS ORDERED: predniSONE 20 MG TAB PO SCH (09:00)
[2021-12-25] MEDS: THIAMINE HCL 100 MG TAB PO SCH (09:32)
[2021-12-25] MEDS: SENNA 8.6 MG TAB PO SCH (09:32)
[2021-12-25] MEDS: UMECLIDINIUM/VILANTEROL 62.5/25MCG 7 PUFFS/INHALER INH SCH (09:49)
[2021-12-25] MEDS: FLUTICASONE FUROATE 100MCG 14 PUFFS/INHALER INH SCH (09:49)
[2021-12-25] MEDS: NICOTINE 14 MG/24 HR PATCH TD SCH (09:58)
[2021-12-25] MEDS: PANTOprazole 40 MG TAB PO SCH (10:03)
--- NOTE | 2021-12-25 11:03 | Critical Care Progress Note ---
Date of Service December 25, 2021 Assessment & Plan (1) Acute respiratory failure with hypoxia and hypercarbia: (2) Acute exacerbation of chronic obstructive pulmonary disease: (3) General weakness: (4) Cachexia: Plan Impression: 66-year-old female with advanced COPD and chronic hypoxemic respiratory failure. She was initially admitted with hypercarbic respiratory failure and intubated. She was on the floor but failed conservative therapy and was transferred back to the ICU for hypoxemic hypercarbic respiratory failure necessitating BiPAP. She has severe protein calorie malnutrition and severe cachexia. Recommendations: 1. End-stage COPD with hypoxemia and hypercarbia. I met with the patient as well as with her son. Palliative care was also involved in the discussions and I discussed with the hospitalist. Unfortunately the patient is failing maximal therapy. She has end-stage emphysema and unfortunately continues to smoke. Her profound cachexia makes it unlikely that aggressive care will result in improvement in quality of life. Prior to this, her family was already concerned about her ability to care for herself at home and were looking into 24-hour nursing. Discussions with palliative care held yesterday were leaning more towards a palliative approach and potential longterm facility with hospice. I do not see that intubation mechanical ventilation at this point time would offer the patient a significant clinical benefit. Its highly likely that she would end up with a tracheostomy. She and her son are quite adamant that she would not want that nor would she want a feeding tube. She appears to be responding somewhat favorably to steroids currently. Her biggest concern is symptom control should she transition to palliative care. I advised her that we have excellent medications to control dyspnea anxiety and pain however they may further suppress respiratory drive and should only be used in a pure palliative care approach. Family is currently awaiting arrival of other family members to make a final decision. Palliative care has placed orders for dyspnea management which I believe is reasonable. We will continue BiPAP for now and continue efforts to try and optimize what ever pulmonary status she has short of intubati on mechanical ventilation. I did advise the patient that if she can use noninvasive positive pressure ventilation at night, it may add some time to her life although its unclear how long we would be able to prolong her life. I do not think home hospice is going to be an option for her given her debilitated state. A total of 79 minutes in critical care time was spent in evaluation management and coordination of care for this patient including end-of-life issues. Case was discussed with the critical care nurse on several occasions. Will transition the patient to comfort care measures once family arrives and likely transfer her back to the floor at which point in time her hospitalist can resume care. Admission and Anticipated Discharge Date Admission Date: December 20, 2021 Subjective Patient brought to the ICU this morning due to hypercarbic respiratory failure and decreased mental status. The patient was on full face BiPAP when I arrived in the room. She apparently was obtunded earlier but is now awake and nodding her head to commands. She was in respiratory distress previously but this appears improved currently. She has met with palliative care and family has presented to bedside. After careful consideration, family and patient elected to not pursue intubation or other aggressive interventions and are considering a more palliative approach. Review of Systems Review of Systems: Unobtainable due to reduced consciousness Physical Exam Constitutional: + thin, + cachectic and + frail appearing Eyes: + anicteric sclerae Neck: trachea midline, no thyromegaly Respiratory: normal respiratory effort and + tachypneic (at rest); no cough Auscultation: + diminished lung sounds (throughout right hemithorax); no crackles, no rhonchi and no wheezes Cardiovascular: RRR, no murmur, no edema Chest (Breasts): Chest: normal inspection of chest Gastrointestinal (Abdomen): normal bowel sounds, soft, nontender, no hepatosplenomegaly Musculoskeletal: Extremities: + extremities abnormal to inspection (sarcopenia), no cyanosis and no clubbing Skin: no rashes, warm and dry Neurologic: moves all extremities and awake; no focal motor deficits Psychiatric: Orientation: alert, oriented x 3 and cooperative Affect: + anxious affect Lymphatic: no lymphedema Results & Data Results & Data ([facility]) Vital Signs (Past 12 Hours) Vital Signs Temp Pulse Pulse Resp BP BP Pulse Ox 12/25/21 09:00 36.4 C L 96 H 22 99 12/25/21 09:00 113/60 12/25/21 08:46 114/66 12/25/21 08:46 36.3 C L 100 H 23 87 L 12/25/21 08:30 36.3 C L 104 H 31 H 97 12/25/21 08:30 114/65 12/25/21 08:00 12/25/21 08:31 110 H 33 H 99 12/25/21 08:15 137/72 12/25/21 08:15 36.3 C L 110 H 31 H 95 12/25/21 08:01 113 H 31 H 96 12/25/21 07:13 107 H 18 91 12/25/21 00:39 12/24/21 23:51 37.1 C 100 H 14 110/65 98 O2 Del Method O2 Flow Rate FiO2 12/25/21 09:00 BiPAP 40 12/25/21 09:00 12/25/21 08:46 12/25/21 08:46 BiPAP 40 12/25/21 08:30 BiPAP 40 12/25/21 08:30 12/25/21 08:00 BiPAP 40 12/25/21 08:31 40 12/25/21 08:15 12/25/21 08:15 BiPAP 40 12/25/21 08:01 BiPAP 40 12/25/21 07:13 Nasal Cannula 3 12/25/21 00:39 Nasal Cannula, CPAP 3 12/24/21 23:51 Nasal Cannula 3 Critical Care Results & Data Vital Signs (Past 12 Hours) Vital Signs Temp Pulse Pulse Resp BP BP Pulse Ox 12/25/21 09:00 36.4 C L 96 H 22 99 12/25/21 09:00 113/60 12/25/21 08:46 114/66 12/25/21 08:46 36.3 C L 100 H 23 87 L 12/25/21 08:30 36.3 C L 104 H 31 H 97 12/25/21 08:30 114/65 12/25/21 08:00 12/25/21 08:31 110 H 33 H 99 12/25/21 08:15 137/72 12/25/21 08:15 36.3 C L 110 H 31 H 95 12/25/21 08:01 113 H 31 H 96 12/25/21 07:13 107 H 18 91 12/25/21 00:39 12/24/21 23:51 37.1 C 100 H 14 110/65 98 O2 Del Method O2 Flow Rate FiO2 12/25/21 09:00 BiPAP 40 12/25/21 09:00 12/25/21 08:46 12/25/21 08:46 BiPAP 40 10/11/22 08:30 BiPAP 40 12/25/21 08:30 12/25/21 08:00 BiPAP 40 12/25/21 08:31 40 12/25/21 08:15 12/25/21 08:15 BiPAP 40 12/25/21 08:01 BiPAP 40 12/25/21 07:13 Nasal Cannula 3 12/25/21 00:39 Nasal Cannula, CPAP 3 12/24/21 23:51 Nasal Cannula 3 Lab & Micro Results (Past 24 Hours) RBC 4.17 M/uL (3.93-5.22) 12/25/21 WBC 13.43 K/ul (4.8-10.8) H 12/25/21 Hgb 12.9 g/dl (12.0-16.0) 12/25/21 Hct 43.3 % (34.1-44.9) 12/25/21 MCV 103.8 fL (80.0-100.0) H 12/25/21 MCH 30.9 pg (25.0-34.0) 12/25/21 MCHC 29.8 g/dL (32.0-36.0) L 12/25/21 RDW Standard Deviation 57.2 fL (36.4-46.3) H 12/25/21 RDW Coefficient of Variation 14.9 % (11.5-14.5) H 12/25/21 Plt Count 189 K/uL (130-400) 12/25/21 MPV 10.0 fL (9.4-12.3) 12/25/21 Neutrophils (%) (Auto) 76.2 % 12/25/21 Lymphocytes (%) (Auto) 10.1 % 12/25/21 Monocytes # (Auto) 1.64 K/uL (0.24-0.82) H 12/25/21 Eosinophils # (Auto) 0.00 K/uL (0-0.50) 12/25/21 Immature Granulocyte % (Auto) 1.3 % 12/25/21 Neutrophils # (Auto) 10.22 K/uL (1.4-6.5) H 12/25/21 Lymphocytes # (Auto) 1.36 K/uL (1.2-3.4) 12/25/21 Monocytes # (Auto) 1.64 K/uL (0.24-0.82) H 12/25/21 Eosinophils # (Auto) 0.00 K/uL (0-0.50) 12/25/21 Basophils # (Auto) 0.03 K/uL (0-0.2) 12/25/21 Immature Granulocyte # (Auto) 0.18 K/uL (0.00-0.02) H 12/25 Na 138 mmol/L (136-145) 12/25/21 K 4.7 mmol/L (3.5-5.1) 12/25/21 Cl 95 mmol/L (98-107) L 12/25/21 CO2 41 mmol/L (21-32) H* 12/25/21 Anion Gap 2 (3-11) L 12/25/21 BUN 9 mg/dl (6-23) 12/25/21 Creatinine 0.41 mg/dl (0.6-1.2) L 12/25/21 Estimated GFR ( Amer) 123.9 ml/min 12/25/21 Estimated GFR (Non-Af Amer) 106.9 ml/min 12/25/21 BUN/Creatinine Ratio 22.0 (10-20) H 12/25/21 Glu 144 mg/dl (70-99(Fasting)) H 12/25/21 Ca 8.8 mg/dl (8.5-10.1) 12/25/21 Total Bilirubin 0.5 mg/dl (0.2-1.0) 12/25/21 AST 18 U/L (13-39) 12/25/21 ALT 14 U/L (7-52) 12/25/21 Alkaline Phosphatase 75 U/L (34-104) 12/25/21 TP 5.9 gm/dl (6.0-8.3) L 12/25/21 Albumin 3.6 gm/dl (3.4-5.0) 12/25/21 Globulin 2.3 gm/dl (2.5-4.0) L 12/25/21 Albumin/Globulin Ratio 1.6 (0.9-2) 12/25/21 Mg 1.4 mg/dl (1.7-2.4) L 12/25/21 07:45 Calcium Level 8.8 mg/dl (8.5-10.1) 12/25/21 07:45 Arterial Blood pH 7.10 (7.35-7.45) L* 12/25/21 07:49 Arterial Blood Partial Pressure CO2 > 125 mmHg (35-46) H 07:49 Arterial Blood Partial Pressure O2 81 mmHg (80-95) 12/25/21 07: 49 Arterial Blood HCO3 44 mmol/L (19-24) H 12/25/21 07:49 Arterial Blood Base Excess 9.0 mEq/L (-9-1.8) H 12/25/21 07:49 Arterial Blood Oxygen Saturation 97.5 % (90-95) H 12/25/21 07:4 9 Blood Gas Oxygen Given 7 L 12/25/21 07:49 Gildarod Test Pos (Pos) 12/25/21 07:49 I & O Totals 24 Hours 12/24/21 12/25/21 12/26/21 06:59 06:59 06:59 Intake Total 1174.166 / 1174.166 520 / 520 Output Total 1350 / 1350 Balance -175.834 / -175.834 520 / 520 Cumulative 12/20/21 07:25 thru 12/24/21 22:41 Intake Total 8584.983 Output Total 2700 Balance 5884.983 RT Ventilator Mngmt (Last Documented) Ventilator Ordered Settings Ventilator Support Mode Assist Control 12/21/21 08:00 Respiratory Rate 22 12/25/21 09:00 Ventilator Tidal Volume 355 12/21/21 08:00 Setting Minute Ventilation 4.9 12/21/21 07:24 Positive End Expiratory 5 12/21/21 08:00 Pressure Fraction of Inspired Oxygen 40 12/25/21 09:00 Machine Comment changes made post ABG- verbal by 12/21/21 04:59 MEDICAL SERVICE REPRESENTATIVE Paulino Andrade Ventilator - PT Measurements Respiratory Rate 22 Exhaled Tidal Volume 356 Minute Ventilation 4.9 Peak Inspiratory Airway 25 Pressure Plateau Pressure 21 Respiratory Cycle Inspiratory: 1:4.4 Expiratory Ratio Inspiratory Phase Time 0.8 End-Tidal CO2 27 Static Lung Compliance 22.25 Dynamic Lung Compliance 17.80 Normal Static Lung Compliance 45.00 Patient Measurements Comment pt was extubated to BiPAP 15/5 30% to maintain Vt ~[address] Negron. pt was able to vocalize name post extubation. no stridor. Coding Level of Care Code Critical Care 1st 30-74 mins Diagnoses Acute respiratory failure with hypoxia and hypercarbia J96.01; J96.02 Acute exacerbation of chronic obstructive pulmonary disease J44.1 General weakness R53.1 Cachexia R64 Time Spent (min) 79 Comment 84103 and 06122
[2021-12-25] MEDS ORDERED: GLYCOPYRROLATE 0.2 MG/ML VIAL IV PRN (11:05)
[2021-12-25] MEDS: FORMOTEROL 20 MCG/2 ML VIAL NEB SCH ×2 (11:24→19:43)
[2021-12-25] MEDS ORDERED: AZITHROMYCIN 250 MG in DEXTROSE 5% 250 ML IV SCH (11:30)
--- NOTE | 2021-12-25 11:41 | XRay Report ---
XR chest 1V portable CLINICAL HISTORY: Respiratory failure. COMPARISON STUDY: Chest CT 10/05/2021. Chest radiograph December 21, 2021. FINDINGS: The endotracheal and nasogastric tubes have been removed. Right pneumonectomy cavity is unc hanged in appearance. A small left pleural effusion has developed. There is no pneumothorax. Intersti tial thickening within the left lung as developed. Left lower lobe airspace opacity is present. Nippl e shadow projects over the left lower lung. IMPRESSION: 1. Interval development of interstitial pulmonary edema within the left lung with a small left pleura l effusion. 2. Left basilar opacity which could reflect consolidation or atelectasis. ACT 112: Negative or not required by law. Electronically signed by: Rao Carrizales M.D. 12/25/2021 11:40 AM
[2021-12-25] MEDS: LORazepam 0.5 MG in SYRINGE 0 ML IV PRN ×2 (11:53→19:24)
--- NOTE | 2021-12-25 12:04 | Palliative Care Progress Note ---
Date of Service December 25, 2021 Assessment & Plan (1) Dyspnea: Plan: Improved on bipap but she finds the mask very uncomfortable. Given her cachexia, it is difficult to get a good fit with the mask also. She is now on nasal cannula. Morphine and ativan ordered for symptom relief. (2) Anxiety: Plan: Lorazepam added as needed (3) Palliative care encounter: Plan: Earlier this morning when Amy was still lethargic, I met with her son, Teodoro. He has spoken with the rest of the family and they are in agreement that Amy would not want intubation. He feels that her consent to intubation yesterday was more out of fear than anything else. He notes that is not consistent with the wishes that she has expressed in the past. He recognizes that her prognosis is poor. We discussed continuing bipap to see if she would have some improvement in mental status and be able to participate in discussion, though even yesterday, she had anxiety and difficulty with discussion. We discussed the option to shift focus of care to symptom management and comfort. He feels that is what she would want. Later, Amy was more awake. We discussed removing bipap mask and using medications to keep her comfortable on two separate occasions she nodded and agreed with plan of care. I also spoke with her sister, Shruthi, at bedside to update her on plan of care. Discussed with Dr. Kang and RN (4) Acute respiratory failure with hypoxia and hypercarbia: (5) COPD exacerbation: Admission and Anticipated Discharge Date Admission Date: December 20, 2021 Subjective Transferred to ICU with code purple for hypoxic, unresponsive episode. She has been on bipap. She is awake and able to communicate. She has been pulling at bipap mask. Review of Systems Review of Systems: ESAS Pain 0/3 Dyspnea 0/3 with bipap Nausea 0/3 Drowsiness 1/3 PPS 30% Physical Exam Constitutional: + ill appearing and + cachectic ENMT: Mouth: + dry oral mucous membranes Respiratory: + labored breathing, + uses accessory muscles and + tachypneic Cardiovascular: Rate/Rhythm: regular rate and regular rhythm Musculoskeletal: Extremities: + muscle atrophy Results & Data ([facility]) Vital Signs (Past 12 Hours) Vital Signs Temp Pulse Pulse Resp BP Pulse Ox O2 Del Method 12/25/21 11:25 105 H 24 93 Nasal Cannula 12/25/21 11:00 98.6 F 95 H 18 84 L BiPAP 12/25/21 10:30 98.2 F 94 H 22 98 12/25/21 10:00 97.9 F 94 H 25 H 100 BiPAP 12/25/21 10:00 118/62 12/25/21 09:59 122/74 12/25/21 09:59 97.9 F 91 H 18 96 BiPAP 12/25/21 09:45 114/64 12/25/21 09:45 97.9 F 91 H 15 91 BiPAP 12/25/21 09:30 97.7 F 92 H 21 98 BiPAP 12/25/21 09:30 113/60 12/25/21 09:15 105/58 L 12/25/21 09:15 97.5 F L 93 H 14 98 BiPAP 12/25/21 09:00 97.5 F L 96 H 22 99 BiPAP 12/25/21 09:00 113/60 12/25/21 08:46 114/66 12/25/21 08:46 97.3 F L 100 H 23 87 L BiPAP 12/25/21 08:30 97.3 F L 104 H 31 H 97 BiPAP 12/25/21 08:30 114/65 12/25/21 08:00 BiPAP 12/25/21 08:31 110 H 33 H 99 12/25/21 08:15 137/72 12/25/21 08:15 97.3 F L 110 H 31 H 95 BiPAP 12/25/21 08:01 113 H 31 H 96 BiPAP 12/25/21 07:13 107 H 18 91 Nasal Cannula 12/25/21 00:39 Nasal Cannula, CPAP O2 Flow Rate FiO2 12/25/21 11:25 3 12/25/21 11:00 40 12/25/21 10:30 12/25/21 10:00 40 12/25/21 10:00 12/25/21 09:59 12/25/21 09:59 40 12/25/21 09:45 12/25/21 09:45 40 12/25/21 09:30 40 12/25/21 09:30 12/25/21 09:15 12/25/21 09:15 40 12/25/21 09:00 40 12/25/21 09:00 12/25/21 08:46 12/25/21 08:46 40 12/25/21 08:30 40 12/25/21 08:30 12/25/21 08:00 40 12/25/21 08:31 40 12/25/21 08:15 12/25/21 08:15 40 12/25/21 08:01 40 12/25/21 07:13 3 12/25/21 00:39 3 PG Care Time/CCT Total # of Minutes Spent Total Time Spent: 50 Total Time Spent with Patient: Total time spent is greater than 50% in coordination of care (as documented) at patient's floor/unit and/or counseling patient: symptom management, goals of care, code status, family education and support, coordination of care Coding Level of Care Code 17749 Subseq Hosp Care Lvl 3 Diagnoses Dyspnea R06.00 Anxiety F41.9 Palliative care encounter Z51.5 Acute respiratory failure with hypoxia and hypercarbia J96.01; J96.02 COPD exacerbation J44.1
[2021-12-25] MEDS: MoRPHine SULFATE 2 MG/ML CARP IV PRN ×2 (13:18→20:12)
[2021-12-25] MEDS: ENOXAPARIN INJ 30 MG/0.3 ML SYR SQ SCH (13:21)
[2021-12-25] MEDS ORDERED: methylPREDNISolone 60 MG in SYRINGE 0 ML IV SCH (14:00)
--- NOTE | 2021-12-25 14:48 | Electrocardiogram Report ---
Test Reason : Blood Pressure : / mmHG Vent. Rate : 116 BPM Atrial Rate : 116 BPM P-R Int : 126 ms QRS Dur : 082 ms QT Int : 306 ms P-R-T Axes : 060 059 066 degrees QTc Int : 425 ms Sinus tachycardia Otherwise normal ECG When compared with ECG of 20-DEC-2021 07:59, Nonspecific T wave abnormality no longer evident in Anterolateral leads Confirmed by Espinoza Peres ([id number]) on 12/25/2021 2:47:39 PM Referred By: REFERRED SELF Confirmed By:Espinoza Peres
[2021-12-25] MEDS ORDERED: BUDESONIDE 0.5 MG/2 ML VIAL (PULMICORT) NEB SCH (19:00)
[2021-12-26] MEDS: LORazepam 0.5 MG in SYRINGE 0 ML IV PRN ×2 (05:07→09:02)
[2021-12-26] MEDS: MoRPHine SULFATE 2 MG/ML CARP IV PRN ×4 (08:09→14:09)
[2021-12-26] MEDS: NICOTINE 14 MG/24 HR PATCH TD SCH (08:15)
--- NOTE | 2021-12-26 11:51 | Pulmonology Progress Note ---
Date of Service December 26, 2021 Assessment & Plan (1) Acute respiratory failure with hypoxia and hypercarbia: (2) Acute exacerbation of chronic obstructive pulmonary disease: (3) General weakness: (4) Cachexia: Plan Impression: 66-year-old female with end-stage COPD and chronic hypoxemic and hypercapnic respiratory failure. She has been transitioned to comfort care measures Recommendations: 1. End-stage COPD with hypoxemia and hypercarbia. Met with family at bedside. Support was offered. They do not express acute needs. Continue dyspnea management techniques under the direction of palliative care. Consideration for discontinuing supplemental oxygen might be appropriate and is deferred to the primary service as well as palliative care. Pulmonary will sign off at this point time. Feel free to contact us with questions or concerns Admission and Anticipated Discharge Date Admission Date: December 20, 2021 Subjective Patient evaluated. Discussed with family at bedside. EMR reviewed. The patient is sleeping comfortably. She is sedated. According to the family, she has been nonverbal. She does not appear to be exhibiting any respiratory distress Review of Systems Review of Systems: Unobtainable due to reduced consciousness Physical Exam Physical Exam: Exam deferred Results & Data Results & Data ([facility]) Vital Signs (Past 12 Hours) Vital Signs O2 Del Method O2 Flow Rate 12/26/21 07:30 Nasal Cannula 4 Laboratory Results 12/25/21 07:45 12/25/21 07:45 PG Care Time/CCT Total # of Minutes Spent Total Time Spent with Patient: Total time spent is greater than 50% in coordination of care (as documented) at patient's floor/unit and/or counseling patient: Coding Level of Care Code 19836 Subseq Hosp Care Lvl 2 Diagnoses Acute respiratory failure with hypoxia and hypercarbia J96.01; J96.02 Acute exacerbation of chronic obstructive pulmonary disease J44.1 General weakness R53.1 Cachexia R64
[2021-12-26] MEDS ORDERED: LORazepam 0.5 MG in SYRINGE 0 ML IV PRN (12:34)
[2021-12-26] MEDS ORDERED: LORazepam 1 MG in SYRINGE 0 ML IV PRN (14:46)
[2021-12-26] MEDS ORDERED: MoRPHine SULFATE 2 MG/ML CARP IV PRN (14:46)
[2021-12-26] MEDS ORDERED: GLYCOPYRROLATE 0.2 MG/ML VIAL IV PRN (14:46)
[2021-12-26] MEDS ORDERED: MoRPHine BOLUS from BAG IV PRN (14:54)
--- NOTE | 2021-12-26 14:59 | Palliative Care Progress Note ---
Date of Service December 26, 2021 Assessment & Plan (1) Palliative care encounter: (2) Encounter for end of life care: (3) Dyspnea and respiratory abnormalities: (4) Need for comfort care: Plan: Terminal agitation Plan * Ativan increased for persisting terminal agitation * Continue MS as needed * updated son at bedside x15min, reviewed signs of pt moving through the dying process and advised that changes in resp patterns are a normal part of the dying process. All questions were answered to his satisfaction. Sarah Scott DNP Clinical Director, Palliative Medicine Admission and Anticipated Discharge Date Admission Date: December 20, 2021 Subjective Pt on comfort care, son at bedside. Reports some persisting agitation and restlessness. At one point she struggled to sit up as if she wanted to get out of bed, then settled back down. Non verbal. Dyspnea managed with morphine Review of Systems Review of Systems: unable to obtain, pt is unresponsive Physical Exam Physical Exam: Unresponsive pale mild dyspnea, occ grimace coarse rhonchi, diffuse with use of accessory muscles noted. diminished throughout tachy with s1s2, irreg abd scaphoid color pale, skin warmer at core, cooler extremities mild mottling BLE Results & Data ([facility]) Vital Signs (Past 12 Hours) Vital Signs O2 Del Method O2 Flow Rate 12/26/21 07:30 Nasal Cannula 4 PG Care Time/CCT Total # of Minutes Spent Total Time Spent with Patient: Total time spent is greater than 50% in coordination of care (as documented) at patient's floor/unit and/or counseling patient: Coding Level of Care Code 27768 Subseq Hosp Care Lvl 2 Diagnoses Palliative care encounter Z51.5 Encounter for end of life care Z51.5 Dyspnea and respiratory abnormalities R06.00; R06.89 Need for comfort care
[2021-12-26] MEDS ORDERED: MoRPHine SULF/NSS 250 MG/250 ML BTL IV SCH (15:00)
--- NOTE | 2021-12-26 22:22 | Hospitalist Progress Note ---
Date of Service December 26, 2021 Assessment & Plan (1) Acute on chronic respiratory failure with hypoxia and hypercapnia: Plan: Intubated on day of admission due to profound hypercarbia in the setting of COPD exacerbation and end-stage COPD. Extubated hospital day #2 to BIPAP. Has not been using BIPAP since the initial ICU stay. AM of 12/25 - recurrent, severe hypercarbia with obtundation. BIPAP applied and patient transferred to the ICU. Once in ICU discussions held between ICU attending, palliative care attending, and patient/family. Decision made NOT to pursue intubation/mech ventilation and instead transition to comfort care measures. Patient transitioned to comfort care measures later in the day on 12/25. Patient more tachypneic and retracting this morning. Changed IV ativan dosing interval, and ultimately added morphine infusion today. Anticipate patient's passing within the next 24 hours. (2) Comfort measures only status: (3) Palliative care encounter: (4) Chronic obstructive pulmonary disease: Plan: end-stage. with exacerbation. see #1 above. (5) Protein calorie malnutrition: Plan: Severe protein-calorie malnutrition, BMI 15.9 kg/m*m Secondary to end-stage COPD (6) Hypomagnesemia: (7) Tobacco use disorder: Plan: cont nicotine patch (8) B12 deficiency: (9) Depression: (10) SIADH (syndrome of inappropriate ADH production): (11) Thiamine deficiency: (12) History of pneumonectomy: Plan: Right-sided, 2nd to prior lung cancer. (13) Severe protein-calorie malnutrition: Plan support given to pt's son at bedside Admission and Anticipated Discharge Date Admission Date: December 20, 2021 Subjective patient briefly opened her eyes I asked her if she was in pain - shook head no she was tachypneic with retractions son at bedside - feels that she is a little anxious/agitated Review of Systems Review of Systems: Unobtainable due to cognitive status Physical Exam Physical Exam: gen - cachectic; tachypneic with retractions; minimally responsive mouth - MM dry neck - no JVD heart - tachy, s1 s2 lungs - very shallow breathing, poor airation, increased work of breathing abd - soft ext - cool feet Results & Data Results & Data ([facility]) Vital Signs (Past 12 Hours) Vital Signs O2 Del Method O2 Flow Rate 12/26/21 19:15 Nasal Cannula 2 PG Care Time/CCT Total # of Minutes Spent Total Time Spent with Patient: Total time spent is greater than 50% in coordination of care (as documented) at patient's floor/unit and/or counseling patient: Coding Level of Care Code 44776 Subseq Hosp Care Lvl 1 Diagnoses Acute on chronic respiratory failure with hypoxia and hypercapnia J96.21; J96.22 Comfort measures only status Z51.5 Palliative care encounter Z51.5 Chronic obstructive pulmonary disease J44.9 Protein calorie malnutrition E46 Hypomagnesemia E83.42 Tobacco use disorder F17.200 B12 deficiency E53.8 Depression F32.9 SIADH (syndrome of inappropriate ADH production) E22.2 Thiamine deficiency E51.9 History of pneumonectomy Z98.890; Z90.2 Severe protein-calorie malnutrition E43
--- NOTE | 2021-12-27 03:17 | Death Pronouncement Note ---
Date of Service December 27, 2021 Pronouncement Note Admission Date Admission Date: December 20, 2021 Date and Time of Date of : 12/27/21 Time of : 02:58 Contributing Factors (1) Acute on chronic respiratory failure with hypoxia and hypercapnia: (2) Chronic obstructive pulmonary disease: (3) Protein calorie malnutrition: (4) Hypomagnesemia: (5) Tobacco use disorder: (6) B12 deficiency: (7) Depression: (8) SIADH (syndrome of inappropriate ADH production): (9) Thiamine deficiency: (10) History of pneumonectomy: Additional Data Confirmation of : no pulse, no respirations, no heart sounds and pupils fixed and dilated Family: at bedside Attending physician: Michael Way Resident Activity Tracking Resident Involvement: Resident Care Provided Care Provided: Adult Hospital Medicine
--- NOTE | 2021-12-28 16:20 | Discharge Summary ---
Date of Service December 28, 2021 Admission HPI Per Admitting Provider Amy Posadas is a 66-year-old female with a PMH significant for previous lung cancer S/P right pneumonectomy, current smoker, COPD and chronic hypoxic respiratory failure with baseline 2 L/min O2 requirement who presents to the ER via EMS due to shortness of breath. History is obtained from chart review and ED Physician as the patient is currently intubated. Per the ED, the patient started to experience worsening SOB yesterday to the point where she was severely SOB at 3 am this morning. She called EMS who gave the patient 4 albuterol treatments and 125 mg of methylprednisone en route. Initially on arrival to the ED the patient was able to speak but was confused. Workup in the ED showed a white count WNL, bicarb of 37, calcium of 8.4 and mag of 1.6. VBG showed a pH of 7.16 and a pCO2 of 110, covid screen was negative. Chest xray showed a stable right pneumonectomy, emphysema, and no acute findings in the left lung. ED attempted a code status discussion with the patient but she was too altered to give a reliable answer. The ED staff then attempted to call both the patient's son, Teodoro Posadas ([phone]) and her sister, Shruthi Mack ([phone]) but they did not hand picker. At that time the ED staff made the decision to intubate the patient at that time. Prior to admission the patient was given 1mg IV calcium gluconate and 1gm Magnesium Sulfate. The ED staff spoke with the ICU team who accepted the patient for ICU admission. At the time of the exam the patient was in bed, currently intubated and hemodynamically stable; NG tube currently in place. History unable to be obtained at the time of the exam due to the patient's current status. Discharge Data Allergies Allergy/AdvReac Type Severity Reaction Status Date / Time aspirin Allergy Severe SEVERE Verified 10/05/21 15:29 STOMACH CRAMPING sulfamethoxazole Allergy Severe TONGUE Verified 10/05/21 15:29 SWELLING trimethoprim Allergy Severe TONGUE Verified 10/05/21 15:29 SWELLING Penicillins Allergy Unknown Unknown Verified 10/05/21 15:29 Consultations 12/20/21 10:50 ED Decision to Admit Stat 12/23/21 18:03 Consult Palliative Care Routine Discharge Plan Discharge Items Patient Disposition: Other Date/Time: 12/27/21 02:58 Coding
== END 2021-12-27 03:45 | disposition expired | DRG 208 ==
LOC: ED 07:55 → SUATTDRO 10:22 → 1E 10:22 → 3E 12-22 09:15 → 1E 12-25 07:59 → 3N 12-25 20:55